=== PATIENT | male | born 1990 ===

== ENCOUNTER 2017-02-07 22:19 | Emergency (ER) | payer MEDICAID ==
[2017-02-07 22:20] VITALS: BMI 13.6
[2017-02-07 22:42] VITALS: TEMP 98.3
[2017-02-07] MEDS ORDERED: Sodium Chloride 0.9% 1,000 ML IV ONE (23:36)
[2017-02-07] MEDS ORDERED: Sodium Chloride 0.9% 1,000 ML ONE (23:41)
[2017-02-07 23:43] LABS: EOS # 0.1 K/uL (0.0-0.7); HEMATOCRIT 42.6 % (35.0-51.0); LYMPH # 1.4 K/uL (1.0-4.3); LYMPH % 30.4 % (20.0-40.0); MEAN CELL VOLUME 87.8 fL (80.0-94.0); MEAN CORPUSCULAR HEMOGLOBIN 28.8 pg (27.0-31.0); MEAN CORPUSCULAR HGB CONC 32.8 g/dL (33.0-37.0); MEAN PLATELET VOLUME 9.7 fL (7.2-11.7); MONO # 0.6 K/uL (0.0-0.8); MONO % 12.2 % (0.0-10.0); NRBC % 0.1 % (0.0-2.0); RED CELL DISTRIBUTION WIDTH 13.3 % (11.5-14.5); WHITE BLOOD COUNT 4.7 K/uL (4.8-10.8)
[2017-02-07 23:53] LABS: CHLORIDE 106 mmol/L (98-107); POTASSIUM 3.1 mmol/L (3.6-5.2); SODIUM 143 mmol/L (132-148)
[2017-02-07 23:56] LABS: BLOOD UREA NITROGEN 9 mg/dL (9-20); CALCIUM 9.4 mg/dl (8.6-10.4); CARBON DIOXIDE 22 mmol/L (22-30); GFR AFRICAN-AMERICAN > 60; GLUCOSE,RANDOM 229 mg/dL (75-110)
[2017-02-07] MEDS ORDERED: Amoxicillin-Clav 875-125 mg Tab PO STA (23:58)
[2017-02-07] MEDS ORDERED: Potassium Chloride 20 mEq ER Tab PO STA (23:58)
--- NOTE | 2017-02-08 00:11 | C.PDOC ---
Time Seen by Provider: 02/07/17 23:27 Chief Complaint (Nursing): Dental Pain History Per: Patient Onset/Duration Of Symptoms: Hrs Current Symptoms Are (Timing): Still Present Severity: Moderate Head: 1 - pain Dental/Oral: 1 - pain Quality: Positive for: "Pain" Additional History Per: Prior Records Past Medical History Reviewed: Historical Data, Nursing Documentation, Vital Signs Vital Signs: Last Vital Signs Temp 98.3 F 02/07/17 22:37 Pulse 93 H 02/07/17 22:37 Resp 20 02/07/17 22:37 BP 127/89 02/07/17 22:37 Pulse Ox 98 02/08/17 00:11 - Medical History PMH: Bipolar Disorder, Crohn's Disease, Depression, Diabetes (Type 1), Schizophrenia Family History: States: Unknown Family Hx - Social History Hx Tobacco Use: No Hx Alcohol Use: Yes Hx Substance Use: Yes - Immunization History Hx Tetanus Toxoid Vaccination: Yes Hx Influenza Vaccination: Yes Hx Pneumococcal Vaccination: Yes Review Of Systems Except As Marked, All Systems Reviewed And Found Negative. Constitutional: Negative for: Fever ENT: Positive for: Ear Pain (right), Mouth Pain. Negative for: Throat Pain Cardiovascular: Negative for: Chest Pain Respiratory: Negative for: Shortness of Breath Gastrointestinal: Negative for: Vomiting, Abdominal Pain Musculoskeletal: Negative for: Neck Pain Skin: Negative for: Rash Neurological: Negative for: Weakness, Numbness, Seizures, Altered Mental Status Physical Exam - Physical Exam Appears: Non-toxic, No Acute Distress Skin: Normal Color, Warm, Dry, No Rash Head: Atraumatic, Normacephalic Eye(s): bilateral: Normal Inspection, PERRL, EOMI Ear(s): Bilateral: Normal Oral Mucosa: Moist, No Drooling, No Trismus Tongue: Normal Appearing Teeth: Caries, Tender To Palpation (right lower molars) Gingiva: No Abscess Throat: Normal Neck: Normal ROM, Supple Cardiovascular: Rhythm Regular Respiratory: Normal Breath Sounds, No Accessory Muscle Use Gastrointestinal/Abdominal: Soft, No Tenderness Extremity: Normal ROM, No Deformity Neurological/Psych: Oriented x3, Normal Speech, Normal Cognition, Normal Cranial Nerves, Normal Motor, Normal Sensation ED Course And Treatment - Laboratory Results Result Diagrams: 02/07/17 23:40 02/07/17 23:40 O2 Sat by Pulse Oximetry: 98 Pulse Ox Interpretation: Normal Reassessment Condition: Improved Progress - Interventions Interventions:: Observation, Intravenous fluid - Medications Administered Intravenous: NSAID - Data Reviewed Data Reviewed: Lab, Old records - Patient Status Patient status: Mostly improved - Continuity of Care Discussed patient case with:: Patient, ED Nurse - Patient Plan Patient Plan: Discharge, F/U with PCP, Continue present meds Disposition Counseled Patient/Family Regarding: Studies Performed, Diagnosis, Need For Followup, Rx Given - Disposition Disposition: HOME/ ROUTINE Disposition Time: 00:59 Condition: IMPROVED Additional Instructions: Follow up with your doctor. Follow up with a Dentist within 1 week for further evaluation and treatment. Return to the ER if you develop fever, redness, swelling, pus drainage, worsening of symptoms or if you have any other concerns. Prescriptions: Amoxicillin/Clavulanate [Augmentin 875 MG-125 MG] 1 tab PO BID #14 tab Ibuprofen [Motrin Tab] 400 mg PO TID PRN #15 tab PRN Reason: Pain, Moderate (4-7) Instructions: Toothache (ED) - Clinical Impression Clinical Impression: Toothache
[2017-02-08] MEDS ORDERED: Amoxicillin-Clav 875-125 mg Tab PO ONE (00:20)
[2017-02-08] MEDS ORDERED: Potassium Chloride 20 mEq ER Tab PO ONE (00:21)
[2017-02-08 01:13] VITALS: BP 111/72; PULSE 86; RESP 18; O2SAT 100
== END 2017-02-08 01:13 | disposition home or self-care (01) ==
LOC: C.ER 22:19
DX: K08.89 Other specified disorders of teeth and supporting structures (principal)
CPT/HCPCS: 80048; 85025; 96361; 96374; 99285; J1885; J7040

== ENCOUNTER 2017-07-11 10:58 | Inpatient (IN) | payer MEDICAID ==
[2017-07-11 10:59] VITALS: BMI 13.6
[2017-07-11] MEDS ORDERED: Sodium Chloride 0.9% 1,000 ML IV ONE ×3 (11:29→14:12)
[2017-07-11] MEDS ORDERED: Sodium Chloride 0.9% 1,000 ML ONE ×3 (11:35→18:36)
[2017-07-11 11:55] LABS: BASO # 0.1 K/uL (0.0-0.2); BASO % 1.1 % (0.0-2.0); EOS # 0.1 K/uL (0.0-0.7); EOS % 1.5 % (0.0-4.0); HEMATOCRIT 46.3 % (35.0-51.0); LYMPH # 1.2 K/uL (1.0-4.3); LYMPH % 24.8 % (20.0-40.0); MEAN CELL VOLUME 89.3 fL (80.0-94.0); MEAN CORPUSCULAR HEMOGLOBIN 29.1 pg (27.0-31.0); MEAN CORPUSCULAR HGB CONC 32.5 g/dL (33.0-37.0); MEAN PLATELET VOLUME 10.4 fL (7.2-11.7); MONO # 0.5 K/uL (0.0-0.8); WHITE BLOOD COUNT 4.7 K/uL (4.8-10.8)
[2017-07-11 12:01] LABS: VENOUS BLOOD GAS BASE EXCESS -6.2 mmol/L (0.0-2.0); VENOUS BLOOD GAS PCO2 45 mmHg (40-60); VENOUS BLOOD PH 7.27 (7.32-7.43)
[2017-07-11] MEDS ORDERED: (Novolin R) Insulin Human Regular 100 units/ml vial IV ONE (12:02)
[2017-07-11] MEDS ORDERED: (Novolin R) Insulin Human Regular 100 units/ml vial ONE (12:19)
[2017-07-11 12:36] LABS: ALB/GLOB RATIO 1.2 (1.0-2.1); ALKALINE PHOSPHATASE 124 U/L (38-126); ALT/SGPT 32 U/L (21-72); AST/SGOT 24 U/L (17-59); BILIRUBIN,TOTAL 0.9 mg/dL (0.2-1.3); BLOOD UREA NITROGEN 10 mg/dL (9-20); CALCIUM 8.3 mg/dl (8.6-10.4); CARBON DIOXIDE 23 mmol/L (22-30); CHLORIDE 89 mmol/L (98-107); GFR AFRICAN-AMERICAN > 60; POTASSIUM 3.9 mmol/L (3.6-5.2); SODIUM 128 mmol/L (132-148); TOTAL PROTEIN 8.1 g/dL (6.3-8.3)
[2017-07-11 13:10] LABS: GLUCOSE,RANDOM 601 mg/dL (75-110)
[2017-07-11 14:38] LABS: URINE BILIRUBIN NEGATIVE (NEGATIVE); URINE BLOOD NEGATIVE (NEGATIVE); URINE COLOR Colorless (YELLOW); URINE GLUCOSE (UA) 3+ mg/dL (Normal); URINE KETONE 2+ mg/dL (NEGATIVE); URINE LEUKOCYTE ESTERASE NEG Leu/uL (Negative); URINE PROTEIN NEGATIVE (NEGATIVE); URINE UROBILINOGEN NORMAL mg/dL (0.2-1.0); WBC URINE < 1 /hpf (0-5)
--- NOTE | 2017-07-11 14:40 | C.PDOC ---
History Of Present Illness 26 y/o male, with PMHx of diabetes, presents to ED c/o nausea, vomiting, and abdominal pain. Notes that he does not have a glucometer at home. Pt states that he is compliant with his diabetes medication- changes dosing based on how he feels. Denies fever, chills, diarrhea, back pain, or any other associated symptoms at this time. Time Seen by Provider: 07/11/17 11:28 Chief Complaint (Nursing): High Blood Sugar History Per: Patient History/Exam Limitations: no limitations Onset/Duration Of Symptoms: Days Current Symptoms Are (Timing): Still Present Associated Infectious Symptoms: Nausea, Vomiting. denies: Dysuria, Urinary Urgency, Urinary Frequency, Diarrhea Recent travel outside of the [place]: No Additional History Per: Patient Past Medical History Reviewed: Historical Data, Nursing Documentation, Vital Signs Vital Signs: Last Vital Signs Temp 98.4 F 07/11/17 13:57 Pulse 84 07/11/17 13:57 Resp 20 07/11/17 13:57 BP 105/68 07/11/17 13:57 Pulse Ox 97 07/11/17 15:31 - Medical History PMH: Bipolar Disorder, Crohn's Disease, Depression, Diabetes (Type 1), Schizophrenia Denies: HIV, Chronic Kidney Disease Family History: States: Unknown Family Hx - Social History Hx Tobacco Use: No Hx Alcohol Use: No Hx Substance Use: Yes - Immunization History Hx Tetanus Toxoid Vaccination: No Hx Influenza Vaccination: No Hx Pneumococcal Vaccination: No Review Of Systems Except As Marked, All Systems Reviewed And Found Negative. Constitutional: Negative for: Fever, Chills Cardiovascular: Negative for: Chest Pain Respiratory: Negative for: Shortness of Breath Gastrointestinal: Positive for: Nausea, Vomiting, Abdominal Pain. Negative for : Diarrhea, Constipation Genitourinary: Negative for: Dysuria, Frequency, Hematuria Musculoskeletal: Negative for: Back Pain Neurological: Negative for: Headache, Dizziness Physical Exam - Physical Exam Appears: Non-toxic, In Acute Distress, Other (actively vomiting) Skin: Normal Color, Warm, Dry Head: Atraumatic, Normacephalic Eye(s): bilateral: Normal Inspection, EOMI Nose: Normal Oral Mucosa: Moist Neck: Normal ROM, Supple Chest: Symmetrical Cardiovascular: Rhythm Regular Respiratory: Normal Breath Sounds, No Rales, No Rhonchi, No Wheezing Gastrointestinal/Abdominal: Soft, Tenderness (diffuse), No Guarding, No Rebound Back: No CVA Tenderness Extremity: Normal ROM Neurological/Psych: Oriented x3, Normal Speech ED Course And Treatment - Laboratory Results Result Diagrams: 07/11/17 11:35 07/11/17 11:35 O2 Sat by Pulse Oximetry: 97 (RA) Pulse Ox Interpretation: Normal Progress Note: Blood work, UA ordered and reviewed. Patient was given Insulin, Reglan, and IV fluids. Spoke to Dr. Gomez (admits for [facility]) who requested to admit to business education instructor medicine. Case discussed with Dr. Carlo Romero who agrees upon admission. Dr Cornejo , ICU, consulted per Dr Jacobo request, who notes pt does not meet ICU criteria. Disposition - Disposition Disposition: HOSPITALIZED Disposition Time: 17:00 Condition: STABLE - Clinical Impression Clinical Impression: DM I (diabetes mellitus, type I), uncontrolled, DKA (diabetic ketoacidoses) - PA / DETONATOR MAKER / Resident Statement MD/DO has reviewed & agrees with the documentation as recorded. - Scribe Statement The provider has reviewed the documentation as recorded by the Scribsonia Romero All medical record entries made by the Otisibsonia were at my direction and personally dictated by me. I have reviewed the chart and agree that the record accurately reflects my personal performance of the history, physical exam, medical decision making, and the department course for this patient. I have also personally directed, reviewed, and agree with the discharge instructions and disposition.
[2017-07-11 16:09] LABS: ABG ALLEN TEST YES; ARTERIAL BLOOD HGB O2 SAT 95.9 % (95.0-98.0); CARBOXYHEMOGLOBIN 1.9 % (0.5-1.5); DRAW SITE LRA; HHB 0.7 % (0.0-5.0); METHEMOGLOBIN 1.5 % (0.0-3.0)
--- NOTE | 2017-07-11 17:57 | CP.PCM.HP ---
History of Present Illness - History of Present Illness History of Present Illness: 26-year-old male with PMHbipolar disorder, Crohn's disease, depression, type 1 diabetes and schizophrenia presents to the ER for evaluation of nausea and vomiting. C/ nausea for a few days. C/Ovomiting for a few days. Nonbilious, nonbloody, containing only food particles, 2-3 episodes per day. C/Oabdominal pain for a few days. Insidious in onset, progressive, weak, diffuse, generalized, all over the abdomen, intensity of 5/10. Patient states that he does not have a glucometer at home and he changes his diabetic medication as per he feels. No C/ bowel bladder disturbances, fever, chills, abdominal distention, cough, shortness of breath. 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) - RENAL Hx Chronic Kidney Disease: No - ENDOCRINE/METABOLIC Hx Endocrine Disorders: Yes Hx Diabetes Mellitus Type 1: Yes (insulin dependent) - HEMATOLOGICAL/ONCOLOGICAL Hx Human Immunodeficiency Virus (HIV): No - INTEGUMENTARY Hx Dermatological Problems: No - MUSCULOSKELETAL/RHEUMATOLOGICAL Hx Falls: No - GASTROINTESTINAL Hx Crohn's Disease: Yes - GENITOURINARY/GYNECOLOGICAL Hx Genitourinary Disorders: No - PSYCHIATRIC Hx Bipolar Disorder: Yes Hx Depression: Yes Hx Schizophrenia: Yes Hx Substance Use: Yes - SURGICAL HISTORY Hx Surgeries: Yes Other/Comment: wired Jaw - ANESTHESIA Hx Anesthesia: Yes Hx Anesthesia Reactions: No Hx Malignant Hyperthermia: No Meds Allergies/Adverse Reactions: Allergies Allergy/AdvReac Type Severity Reaction Status Date / Time No Known Allergies Allergy Verified 02/07/17 22:42 Results - Vital Signs Recent Vital Signs: Last Vital Signs Temp 98.4 F 07/11/17 13:57 Pulse 84 07/11/17 13:57 Resp 20 07/11/17 13:57 BP 105/68 07/11/17 13:57 Pulse Ox 97 11/28/17 15:31 - Labs Result Diagrams: 07/12/17 11:51 07/12/17 11:51 Labs: Laboratory Results - last 24 hr 07/11/17 07/11/17 07/11/17 11:35 11:35 11:56 WBC 4.7 L RBC 5.19 Hgb 15.1 Hct 46.3 MCV 89.3 MCH 29.1 MCHC 32.5 L RDW 14.0 Plt Count 194 MPV 10.4 Neut % (Auto) 62.6 Lymph % (Auto) 24.8 [place] % (Auto) 10.0 Eos % (Auto) 1.5 Baso % (Auto) 1.1 Neut # 2.9 Lymph # 1.2 [place] # 0.5 Eos # 0.1 Baso # 0.1 Puncture Site pCO2 pO2 41 HCO3 ABG pH ABG Total CO2 ABG O2 Saturation ABG Base Excess ABG Hemoglobin ABG Carboxyhemoglobin POC ABG HHb (Measured) ABG Methemoglobin [place] Test VBG pH 7.27 L VBG pCO2 45 VBG HCO3 19.3 VBG Total CO2 22.1 VBG O2 Sat (Calc) 81.7 H VBG Base Excess -6.2 L VBG Potassium 3.2 L A-a O2 Difference Respiratory Index Hgb O2 Saturation Glucose 539 H* D Lactate 1.7 FiO2 Crit Value Called To Dr. stubbs Crit Value Called By Sae reddy Crit Value Read Back Y Blood Gas Notified Time 1201 Sodium 128 L 137.0 Potassium 3.9 Chloride 89 L 100.0 Carbon Dioxide 23 Anion Gap 20 BUN 10 Creatinine 0.6 L Est GFR ( Amer) > 60 Est GFR (Non-Af Amer) > 60 POC Glucose (mg/dL) Random Glucose 601 H* D Calcium 8.3 L Total Bilirubin 0.9 AST 24 ALT 32 Alkaline Phosphatase 124 Total Protein 8.1 Albumin 4.4 Globulin 3.7 Albumin/Globulin Ratio 1.2 Lipase 57 Venous Blood Potassium 3.2 L Urine Color Urine Clarity Urine pH Ur Specific [place] Urine Protein Urine Glucose (UA) Urine Ketones Urine Blood Urine Nitrate Urine Bilirubin Urine Urobilinogen Ur Leukocyte Esterase Urine WBC (Auto) Urine Opiates Screen Urine Methadone Screen Ur Barbiturates Screen Ur Phencyclidine Scrn Ur Amphetamines Screen U Benzodiazepines Scrn U Oth Cocaine Metabols U Cannabinoids Screen Serum Ketones Moderate 07/11/17 07/11/17 07/11/17 13:31 14:27 14:27 WBC RBC Hgb Hct MCV MCH MCHC RDW Plt Count MPV Neut % (Auto) Lymph % (Auto) [place] % (Auto) Eos % (Auto) Baso % (Auto) Neut # Lymph # [place] # Eos # Baso # Puncture Site pCO2 pO2 HCO3 ABG pH ABG Total CO2 ABG O2 Saturation ABG Base Excess ABG Hemoglobin ABG Carboxyhemoglobin POC ABG HHb (Measured) ABG Methemoglobin [place] Test VBG pH VBG pCO2 VBG HCO3 VBG Total CO2 VBG O2 Sat (Calc) VBG Base Excess VBG Potassium A-a O2 Difference Respiratory Index Hgb O2 Saturation Glucose Lactate FiO2 Crit Value Called To Crit Value Called By Crit Value Read Back Blood Gas Notified Time Sodium Potassium Chloride Carbon Dioxide Anion Gap BUN Creatinine Est GFR ( Amer) Est GFR (Non-Af Amer) POC Glucose (mg/dL) 353 H Random Glucose Calcium Total Bilirubin AST ALT Alkaline Phosphatase Total Protein Albumin Globulin Albumin/Globulin Ratio Lipase Venous Blood Potassium Urine Color Colorless Urine Clarity Clear Urine pH 6.0 Ur Specific [place] 1.023 Urine Protein Negative Urine Glucose (UA) 3+ H Urine Ketones 2+ H Urine Blood Negative Urine Nitrate Negative Urine Bilirubin Negative Urine Urobilinogen Normal Ur Leukocyte Esterase Neg Urine WBC (Auto) < 1 Urine Opiates Screen Negative Urine Methadone Screen Negative Ur Barbiturates Screen Negative Ur Phencyclidine Scrn Negative Ur Amphetamines Screen Negative U Benzodiazepines Scrn Negative U Oth Cocaine Metabols Negative U Cannabinoids Screen Positive H Serum Ketones 07/11/17 16:00 WBC RBC Hgb Hct MCV MCH MCHC RDW Plt Count MPV Neut % (Auto) Lymph % (Auto) [place] % (Auto) Eos % (Auto) Baso % (Auto) Neut # Lymph # [place] # Eos # Baso # Puncture Site Lra pCO2 37 pO2 112 H HCO3 18.6 L ABG pH 7.29 L ABG Total CO2 18.9 L ABG O2 Saturation 99.3 H ABG Base Excess -8.1 L ABG Hemoglobin 13.9 ABG Carboxyhemoglobin 1.9 H POC ABG HHb (Measured) 0.7 ABG Methemoglobin 1.5 [place] Test Yes VBG pH VBG pCO2 VBG HCO3 VBG Total CO2 VBG O2 Sat (Calc) VBG Base Excess VBG Potassium A-a O2 Difference -9.0 Respiratory Index -0.1 Hgb O2 Saturation 95.9 Glucose Lactate FiO2 21.0 Crit Value Called To Crit Value Called By Crit Value Read Back Blood Gas Notified Time Sodium Potassium Chloride Carbon Dioxide Anion Gap BUN Creatinine Est GFR ( Amer) Est GFR (Non-Af Amer) POC Glucose (mg/dL) Random Glucose Calcium Total Bilirubin AST ALT Alkaline Phosphatase Total Protein Albumin Globulin Albumin/Globulin Ratio Lipase Venous Blood Potassium Urine Color Urine Clarity Urine pH Ur Specific [place] Urine Protein Urine Glucose (UA) Urine Ketones Urine Blood Urine Nitrate Urine Bilirubin Urine Urobilinogen Ur Leukocyte Esterase Urine WBC (Auto) Urine Opiates Screen Urine Methadone Screen Ur Barbiturates Screen Ur Phencyclidine Scrn Ur Amphetamines Screen U Benzodiazepines Scrn U Oth Cocaine Metabols U Cannabinoids Screen Serum Ketones
[2017-07-11] MEDS ORDERED: Sodium Chloride 0.9% 1,000 ML IV SCH (18:00)
[2017-07-11] MEDS: (Novolog) Insulin Aspart, Recombinant 100 u/ml 10 ml vial SC SCH ×2 (18:29→20:31)
[2017-07-11] MEDS ORDERED: (Novolog) Insulin Aspart, Recombinant 100 u/ml 10 ml vial ONE ×2 (18:34→20:25)
[2017-07-11 19:15] LABS: ALB/GLOB RATIO 1.5 (1.0-2.1); ALKALINE PHOSPHATASE 99 U/L (38-126); ALT/SGPT 30 U/L (21-72); AST/SGOT 18 U/L (17-59); BILIRUBIN,TOTAL 0.9 mg/dL (0.2-1.3); BLOOD UREA NITROGEN 5 mg/dL (9-20); CALCIUM 7.4 mg/dl (8.6-10.4); CARBON DIOXIDE 10 mmol/L (22-30); CHLORIDE 101 mmol/L (98-107); GFR AFRICAN-AMERICAN > 60; GLUCOSE,RANDOM 335 mg/dL (75-110); SODIUM 134 mmol/L (132-148); TOTAL PROTEIN 6.2 g/dL (6.3-8.3)
[2017-07-11] MEDS ORDERED: (Lantus) Insulin Glargine, Recombinant SC SCH (22:00)
[2017-07-12] MEDS: Sodium Chloride 0.9% 1,000 ML IV SCH ×5 (00:31→19:42)
--- NOTE | 2017-07-12 04:56 | CON ---
ENDOCRINOLOGY CONSULTATION LOCATION: In room 663. HISTORY OF PRESENT ILLNESS: This is a 26-year-old male with a known history of type 1 insulin-dependent diabetes, presenting here with diabetic ketoacidosis and dehydration, and is now being referred for diabetic evaluation and management. He is currently on a combination of a basal and bolus insulin regimen with Humalog given as 20 units t.i.d. before meals and Lantus given as 20 units also at bedtime. PAST MEDICAL HISTORY: History of hypertension and dyslipidemia, history of chronic schizoaffective disorder with major depression and underlying schizophrenia as noted thereof. History of generalized anxiety and depression also, currently on psychotropic medication. There is also a history of Crohn's disease and episodic vomiting and diarrhea with vague upper abdominal pain. PHYSICAL EXAMINATION: GENERAL: A male, in no apparent distress. VITAL SIGNS: Blood pressure 140/90, pulse of 100 beats per minute and regular, temperature 99, and respirations 20. Height is 5 feet 9 inches, weight is 100 pounds. HEENT: Head is normocephalic. Eyes anicteric with pink conjunctivae. Funduscopy not possible at this time. Ears, nose, and throat otherwise normal. NECK: Supple. Thyroid gland is normal size. No carotid bruits or cervical adenopathy. CARDIOPULMONARY: Adynamic precordium. S1 and S2 is rapid and regular. LUNGS: Clear to auscultation. ABDOMEN: Flat and soft with positive bowel sounds. EXTREMITIES: No peripheral edema. Pulses are +2 bilaterally. LABORATORY DATA: Chemistries showed a BUN of 10, sodium 128, potassium 3.9, chloride 89, CO2 of 23, glucose 601, and creatinine 0.6. The last CO2 is 10 as noted. ASSESSMENT: This is a 26-year-old male with uncontrolled and decompensated type 1 insulin-dependent diabetes, presenting here with intractable vomiting episodes, some recent drug omission, and supervening diabetic ketoacidosis and dehydration as noted thereof. We will modify the current regimen and switch him over to a more physiologic basal and bolus insulin regimen as ordered. We will increase the Lantus to 34 units subcutaneously at bedtime daily to start tonight. We will also increase the NovoLog to 12 units subcutaneously t.i.d. before meals to start at breakfast time tomorrow morning as ordered. We will modify the covering scale to obviate hypoglycemia and detailed orders have been given. We will obtain serial chemistries and supplement accordingly as needed. We will follow. Kayce Kaplan MD
[2017-07-12] MEDS: (Novolog) Insulin Aspart, Recombinant 100 u/ml 10 ml vial SC SCH ×7 (07:55→21:49)
[2017-07-12 11:54] LABS: HEMATOCRIT 41.5 % (35.0-51.0); MEAN CELL VOLUME 87.4 fL (80.0-94.0); MEAN CORPUSCULAR HEMOGLOBIN 28.9 pg (27.0-31.0); MEAN CORPUSCULAR HGB CONC 33.1 g/dL (33.0-37.0); MEAN PLATELET VOLUME 9.3 fL (7.2-11.7); RED CELL DISTRIBUTION WIDTH 13.9 % (11.5-14.5); WHITE BLOOD COUNT 4.4 K/uL (4.8-10.8)
[2017-07-12 12:09] LABS: ALB/GLOB RATIO 1.4 (1.0-2.1); ALKALINE PHOSPHATASE 66 U/L (38-126); ALT/SGPT 33 U/L (21-72); AST/SGOT 19 U/L (17-59); BILIRUBIN,TOTAL 0.8 mg/dL (0.2-1.3); BLOOD UREA NITROGEN 3 mg/dL (9-20); CALCIUM 7.3 mg/dl (8.6-10.4); CARBON DIOXIDE 23 mmol/L (22-30); CHLORIDE 100 mmol/L (98-107); GFR AFRICAN-AMERICAN > 60; GLUCOSE,RANDOM 138 mg/dL (75-110); SODIUM 133 mmol/L (132-148); TOTAL PROTEIN 5.6 g/dL (6.3-8.3)
--- NOTE | 2017-07-12 14:52 | PN ---
ENDO FOLLOWUP NOTE LOCATION: In the room 663. This is a 26-year-old male with recent uncontrolled type 1 insulin-dependent diabetes with very poor and nil oral intake at this time and continues to have glycemic fluctuations but have improved accordingly overnight as noted. His glucose levels have ranged from 110 to 134 and 166 mg/dL today as noted. His latest chemistry showed a BUN of 5, sodium 134, potassium 4.0, chloride 101, CO2 is still 10 which is indicative of persistent metabolic acidosis and creatinine is 0.5 with a random glucose of 335. However, the patient overnight has refused the IV fluid hydration and had to be restarted this morning upon lengthy bedside discussion regarding the imperative needs for ongoing fluid hydration to minimize and improve the metabolic acidosis thereof. We will obtain serum chemistries and supplement accordingly as needed. We will modify the basal and bolus insulin regimen and lower the Novolog to 6 units subcu t.i.d. before meals and Lantus will be lowered to 24 units subcu at bedtime daily as ordered. We will titrate incrementally as indicated to optimize metabolic control. We will follow. Kayce Kaplan MD
[2017-07-12 16:39] VITALS: RESP 20
--- NOTE | 2017-07-12 19:03 | CP.PCM.PN ---
Subjective - Date & Time of Evaluation Date of Evaluation: 07/12/17 Time of Evaluation: 12:00 - Subjective Subjective: clinically same Objective - Vital Signs/Intake and Output Vital Signs (last 24 hours): Temp Pulse Resp BP Pulse Ox 98.1 F 75 20 120/68 98 07/12/17 16:38 07/12/17 16:38 07/12/17 16:38 07/12/17 16:38 07/12/17 16:38 - Medications Medications: Current Medications Escitalopram Oxalate (Lexapro) 10 mg PO DAILY [facility] Last Admin: 07/12/17 10:44 Dose: Not Given Sodium Chloride (Sodium Chloride 0.9%) 1,000 mls @ 200 mls/hr IV .Q5H [facility] Last Admin: 07/12/17 17:34 Dose: Not Given Ibuprofen (Motrin Tab) 400 mg PO TID PRN PRN Reason: Pain, moderate (4-7) Last Admin: 07/11/17 20:31 Dose: 400 mg Insulin Aspart (Novolog) 0 unit SC ACHS [facility] PRN Reason: Protocol Last Admin: 07/12/17 17:33 Dose: Not Given Insulin Aspart (Novolog) 6 unit SC AC [facility] Last Admin: 07/12/17 17:33 Dose: Not Given Insulin Glargine (Lantus) 24 unit SC HS [facility] Ondansetron HCl (Zofran Inj) 4 mg IVP Q6 PRN PRN Reason: Nausea/Vomiting Last Admin: 07/12/17 17:31 Dose: 4 mg Quetiapine Fumarate (Seroquel) 50 mg PO DAILY [facility] Last Admin: 07/12/17 10:44 Dose: Not Given Quetiapine Fumarate (Seroquel) 100 mg PO HS [facility] Last Admin: 07/11/17 22:08 Dose: 100 mg Trazodone HCl (Desyrel) 50 mg PO HS PRN PRN Reason: Insomnia Last Admin: 07/11/17 22:08 Dose: 50 mg - Labs Labs: 07/12/17 11:51 07/12/17 11:51 - Constitutional Appears: Well - Head Exam Head Exam: ATRAUMATIC, NORMAL INSPECTION, NORMOCEPHALIC - Eye Exam Eye Exam: EOMI, Normal appearance, PERRL Pupil Exam: NORMAL ACCOMODATION, PERRL - ENT Exam ENT Exam: Mucous Membranes Moist, Normal Exam - Neck Exam Neck Exam: Full ROM, Normal Inspection. absent: Lymphadenopathy - Respiratory Exam Respiratory Exam: Clear to Ausculation Bilateral, NORMAL BREATHING PATTERN - Cardiovascular Exam Cardiovascular Exam: REGULAR RHYTHM, +S1, +S2. absent: Murmur - GI/Abdominal Exam GI & Abdominal Exam: Soft, Normal Bowel Sounds. absent: Tenderness - Rectal Exam Rectal Exam: Deferred - Extremities Exam Extremities Exam: Full ROM, Normal Capillary Refill, Normal Inspection. 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 Laboratory investigation shows raised random blood glucose. ABG shows pH of 7.29. Urine cannabinoid screen is positive. Urine ketones are positive. Continue insulin. Continue quetiapine, trazodone and escitalopram. Continue supportive care.
[2017-07-12] MEDS: Potassium Chloride 20 mEq ER Tab PO SCH (21:34)
[2017-07-12] MEDS ORDERED: (Lantus) Insulin Glargine, Recombinant SC SCH ×2 (22:00)
[2017-07-13] MEDS: Sodium Chloride 0.9% 1,000 ML IV SCH ×5 (01:30→22:01)
[2017-07-13] MEDS: Potassium Chloride 20 mEq ER Tab PO SCH (05:52)
[2017-07-13] MEDS: (Novolog) Insulin Aspart, Recombinant 100 u/ml 10 ml vial SC SCH ×7 (07:41→21:31)
[2017-07-13] MEDS ORDERED: Simethicone 80 mg Chewtab PO ONE (10:00)
--- NOTE | 2017-07-13 10:36 | CARD ---
APPROVED REPORT EKG Measurement Heart [id number] <Conclusion> Sinus tachycardia Right atrial enlargement Nonspecific T wave abnormality Abnormal ECG
[2017-07-13] MEDS ORDERED: (Lantus) Insulin Glargine, Recombinant SC SCH (13:00)
[2017-07-13 17:41] LABS: MEAN CELL VOLUME 87.3 fL (80.0-94.0); MEAN CORPUSCULAR HEMOGLOBIN 28.7 pg (27.0-31.0); MEAN CORPUSCULAR HGB CONC 32.9 g/dL (33.0-37.0); MEAN PLATELET VOLUME 9.5 fL (7.2-11.7); RED CELL DISTRIBUTION WIDTH 13.9 % (11.5-14.5); WHITE BLOOD COUNT 4.8 K/uL (4.8-10.8)
[2017-07-13 18:23] LABS: CALCIUM 7.4 mg/dl (8.6-10.4); CARBON DIOXIDE 25 mmol/L (22-30); CHLORIDE 101 mmol/L (98-107); GFR AFRICAN-AMERICAN > 60; GLUCOSE,RANDOM 129 mg/dL (75-110); SODIUM 136 mmol/L (132-148)
--- NOTE | 2017-07-13 18:53 | CP.PCM.PN ---
Subjective - Date & Time of Evaluation Date of Evaluation: 07/13/17 Time of Evaluation: 11:00 - Subjective Subjective: clinically same Objective - Vital Signs/Intake and Output Vital Signs (last 24 hours): Temp Pulse Resp BP Pulse Ox 98.8 F 76 20 117/69 98 07/13/17 15:42 07/13/17 15:42 07/13/17 15:42 07/13/17 15:42 07/13/17 15:42 Intake and Output: 07/13/17 07/13/17 06:59 18:59 Intake Total 1440 1840 Output Total 775 Balance 1440 1065 - Medications Medications: Current Medications Escitalopram Oxalate (Lexapro) 10 mg PO DAILY [facility] Last Admin: 07/13/17 09:37 Dose: 10 mg Sodium Chloride (Sodium Chloride 0.9%) 1,000 mls @ 200 mls/hr IV .Q5H [facility] Last Admin: 07/13/17 16:00 Dose: 200 mls/hr Ibuprofen (Motrin Tab) 400 mg PO TID PRN PRN Reason: Pain, moderate (4-7) Last Admin: 07/11/17 20:31 Dose: 400 mg Insulin Aspart (Novolog) 0 unit SC ACHS [facility] PRN Reason: Protocol Last Admin: 07/13/17 17:54 Dose: Not Given Insulin Aspart (Novolog) 8 unit SC AC [facility] Last Admin: 07/13/17 17:55 Dose: 8 unit Insulin Glargine (Lantus) 30 unit SC HS [facility] Ondansetron HCl (Zofran Inj) 4 mg IVP Q6 PRN PRN Reason: Nausea/Vomiting Last Admin: 07/12/17 17:31 Dose: 4 mg Quetiapine Fumarate (Seroquel) 50 mg PO DAILY [facility] Last Admin: 07/13/17 09:37 Dose: 50 mg Quetiapine Fumarate (Seroquel) 100 mg PO HS [facility] Last Admin: 07/12/17 21:34 Dose: 100 mg Trazodone HCl (Desyrel) 50 mg PO HS PRN PRN Reason: Insomnia Last Admin: 07/12/17 21:34 Dose: 50 mg - Labs Labs: 07/13/17 17:35 07/13/17 17:35 - Constitutional Appears: Well - Head Exam Head Exam: ATRAUMATIC, NORMAL INSPECTION, NORMOCEPHALIC - Eye Exam Eye Exam: EOMI, Normal appearance, PERRL Pupil Exam: NORMAL ACCOMODATION, PERRL - ENT Exam ENT Exam: Mucous Membranes Moist, Normal Exam - Neck Exam Neck Exam: Full ROM, Normal Inspection. absent: Lymphadenopathy - Respiratory Exam Respiratory Exam: Clear to Ausculation Bilateral, NORMAL BREATHING PATTERN - Cardiovascular Exam Cardiovascular Exam: REGULAR RHYTHM, +S1, +S2. absent: Murmur - GI/Abdominal Exam GI & Abdominal Exam: Soft, Normal Bowel Sounds. 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 Patient better. Continue insulin. Continue quetiapine, trazodone. Continue supportive care.
[2017-07-13 19:18] LABS: BLOOD UREA NITROGEN 5 mg/dL (9-20); POTASSIUM 2.6 mmol/L (3.6-5.2)
--- NOTE | 2017-07-13 22:02 | PN ---
DATE: ENDOCRINOLOGY FOLLOWUP NOTE LOCATION: Room 663. SUBJECTIVE: This is a 26-year-old male with recent uncontrolled type 1 insulin-dependent diabetes, presenting here with diabetic ketoacidosis and dehydration and very poor and variable oral intake as noted. His glycemic levels are fluctuating as expected and the latest glucose values have ranged from 206 to 263 and 268 mg/dL. The latest chemistry showed a BUN of 3, sodium 133, potassium 3.0, chloride of 100, CO2 of 23, glucose 138 and creatinine 0.4. So, at this time, we will modify once again his basal and bolus insulin regimen and increase the Lantus to 30 units subcu at bedtime daily to start tonight. We will also increase the NovoLog to 8 units subcu t.i.d. before meals to start at dinnertime today as ordered. We will continue the low-dose corrections daily using NovoLog insulin as given. Titrating incrementally as indicated to optimize metabolic control. We will obtain serial chemistries and supplement accordingly as needed. We will follow up with you. Kayce Kaplan MD
[2017-07-14] MEDS ORDERED: Potassium Chloride 10 mEq ER Tab PO STA (00:09)
[2017-07-14] MEDS ORDERED: Simethicone 80 mg Chewtab PO ONE (05:12)
[2017-07-14] MEDS: (Novolog) Insulin Aspart, Recombinant 100 u/ml 10 ml vial SC SCH ×4 (07:30→11:30)
[2017-07-14] MEDS: Sodium Chloride 0.9% 1,000 ML IV SCH (08:00)
[2017-07-14 08:09] LABS: HEMATOCRIT 42.7 % (35.0-51.0); MEAN CELL VOLUME 87.3 fL (80.0-94.0); MEAN CORPUSCULAR HEMOGLOBIN 29.1 pg (27.0-31.0); MEAN CORPUSCULAR HGB CONC 33.3 g/dL (33.0-37.0); MEAN PLATELET VOLUME 9.7 fL (7.2-11.7); RED CELL DISTRIBUTION WIDTH 13.9 % (11.5-14.5); WHITE BLOOD COUNT 3.8 K/uL (4.8-10.8)
[2017-07-14 08:45] LABS: ALB/GLOB RATIO 1.4 (1.0-2.1); ALKALINE PHOSPHATASE 66 U/L (38-126); ALT/SGPT 33 U/L (21-72); AST/SGOT 21 U/L (17-59); BILIRUBIN,TOTAL 0.9 mg/dL (0.2-1.3); CALCIUM 7.6 mg/dl (8.6-10.4); CARBON DIOXIDE 27 mmol/L (22-30); CHLORIDE 104 mmol/L (98-107); GFR AFRICAN-AMERICAN > 60; GLUCOSE,RANDOM 140 mg/dL (75-110); POTASSIUM 3.4 mmol/L (3.6-5.2); SODIUM 140 mmol/L (132-148); TOTAL PROTEIN 5.8 g/dL (6.3-8.3)
[2017-07-14 09:07] LABS: BLOOD UREA NITROGEN < 2 mg/dL (9-20)
[2017-07-14] MEDS ORDERED: Pneumococcal 23-Valent Vaccine IM ONE (10:00)
[2017-07-14] MEDS ORDERED: Potassium Chloride 20 mEq ER Tab PO ONE (16:00)
--- NOTE | 2017-07-14 16:04 | CP.PCM.PN ---
Subjective - Date & Time of Evaluation Date of Evaluation: 07/14/17 Time of Evaluation: 15:58 - Subjective Subjective: PATIENT WAS ADMITTED FOR DKA ; AAAOX3; NO VOMITING NOTED PATIENT STATES THAT HE DOES HAVE AN APPETITE; DENIES CHEST PAIN OR SOB; NO SIGN OF DISTRESS NOTED Objective - Vital Signs/Intake and Output Vital Signs (last 24 hours): Temp Pulse Resp BP Pulse Ox 98.0 F 69 20 155/66 H 97 07/14/17 08:40 07/14/17 08:40 07/14/17 08:40 07/14/17 08:40 07/14/17 08:40 Intake and Output: 07/14/17 07/14/17 06:59 18:59 Intake Total 1400 Balance 1400 - Medications Medications: Current Medications Escitalopram Oxalate (Lexapro) 10 mg PO DAILY [facility] Last Admin: 07/14/17 09:26 Dose: 10 mg Ibuprofen (Motrin Tab) 400 mg PO TID PRN PRN Reason: Pain, moderate (4-7) Last Admin: 07/11/17 20:31 Dose: 400 mg Insulin Aspart (Novolog) 0 unit SC ACHS [facility] PRN Reason: Protocol Last Admin: 07/14/17 11:30 Dose: Not Given Insulin Aspart (Novolog) 8 unit SC AC [facility] Last Admin: 07/14/17 11:30 Dose: Not Given Insulin Glargine (Lantus) 30 unit SC HS [facility] Last Admin: 07/13/17 22:00 Dose: 30 units Ondansetron HCl (Zofran Inj) 4 mg IVP Q6 PRN PRN Reason: Nausea/Vomiting Last Admin: 07/14/17 05:01 Dose: 4 mg Potassium Chloride (K-Dur 20 Meq Er Tab) 20 meq PO ONCE ONE Stop: 07/14/17 16:01 Quetiapine Fumarate (Seroquel) 50 mg PO DAILY [facility] Last Admin: 07/14/17 09:25 Dose: 50 mg Quetiapine Fumarate (Seroquel) 100 mg PO HS [facility] Last Admin: 07/13/17 21:17 Dose: 100 mg Trazodone HCl (Desyrel) 50 mg PO HS PRN PRN Reason: Insomnia Last Admin: 07/13/17 21:17 Dose: 50 mg - Labs Labs: 07/14/17 07:42 07/14/17 07:42 - Head Exam Head Exam: NORMOCEPHALIC - Eye Exam Pupil Exam: PERRL - Neck Exam Neck Exam: Full ROM - Respiratory Exam Respiratory Exam: Clear to Ausculation Bilateral - Cardiovascular Exam Cardiovascular Exam: REGULAR RHYTHM - GI/Abdominal Exam GI & Abdominal Exam: Normal Bowel Sounds Assessment and Plan - Assessment and Plan (Free Text) Assessment: A/P PATIENT WAS SEEN AND EXAMINED; LUNG SOUND WAS CLEAR ; BLOOD SUGAR IS WNL; POTASSIUM WAS 3.4 REPLACE BY 20 MEQ PO; GLUCOMETER INSTRUCTION WAS GIVEN HOW TOO USE THE MACHINE PATIENT IS NOT COMPLIANT WITH HIS MEDICATION DISCUSS WITH DR Carlo DAVILA WHO AGREE WITH D/C FOLLOW UP WITH DR Carlo DAVILA IN HIS OFFICE IN A WEEK -----CALL HIS OFFICE FOR APPOINTMENT CONTINUE ALL YOUR HOME MEDICATION PER MED RECS NEW RX GIVEN: PERIACTIN 4 MG PO DAILY FOR 7 DAYS FOR APPETITE GLUCOMETER WAS PROVIDED AND INSTRUCTION ALSO GIVEN CALL DR Carlo DAVILA OR GO TO THE ER IF SYMPTOMS RETURN OR WORSENING
[2017-07-14 16:43] VITALS: BP 126/84; PULSE 64; TEMP 98.2; O2SAT 98
--- NOTE | 2017-07-14 23:43 | PN ---
DATE: ENDO FOLLOWUP NOTE: LOCATION: In the room 663. SUBJECTIVE: This is a 26-year-old male with recent uncontrolled type 1 insulin-dependent diabetes presenting here with marked hyperglycemic accelerations and diabetic ketoacidosis and since then improved clinically and metabolically as noted thereof. His oral intake continues to be variable as per the nursing staff as noted. He also has underlying chronic schizoaffective disorder and schizophrenia with major depression. His glucose values are fluctuating but improved and the latest glucose levels have ranged from 149 to 269 mg/dL. The latest chemistries showed the BUN of 2, sodium 140, potassium 3.4, chloride 104, C02 27, glucose 140 and creatinine 0.4. So at this time, we have actually discontinue now the normal sodium infusion. We have initially started vigorous IV hydration to withstand the volume depletion and electrolytes . We will also continue the same basal and bolus insulin regimen for allow control the equilibration especially since his oral intake is quite variable and keep him on the Lantus, given at 30 units subcu at bedtime daily as given. We will continue the Novolog at 8 units subcu b.i.d. before meals; therefore we will titrate incrementally as indicated to optimize metabolic control. We will follow with you. Kayce Kaplan MD
== END 2017-07-14 17:17 | disposition home or self-care (01) | DRG 295 ==
LOC: C.ER 10:58 → C.9E 16:39 → C.6T 20:50
PROVIDERS: ADMIT Internal Medicine Nephrology; ATTEND Internal Medicine Nephrology
DX: E10.10 Type 1 diabetes mellitus with ketoacidosis without coma (principal); E10.40 Type 1 diabetes mellitus with diabetic neuropathy, unspecified; E87.5 Hyperkalemia; E86.0 Dehydration; E87.1 Hypo-osmolality and hyponatremia; F25.9 Schizoaffective disorder, unspecified; I10 Essential (primary) hypertension; E78.5 Hyperlipidemia, unspecified; F31.9 Bipolar disorder, unspecified; F41.1 Generalized anxiety disorder; K50.90 Crohn's disease, unspecified, without complications; H54.8 Legal blindness, as defined in USA; H91.90 Unspecified hearing loss, unspecified ear; K08.89 Other specified disorders of teeth and supporting structures; Z79.4 Long term (current) use of insulin

== ENCOUNTER 2017-07-16 00:45 | Inpatient (IN) | payer MEDICAID ==
[2017-07-16 00:45] VITALS: BMI 13.6
--- NOTE | 2017-07-16 01:17 | C.PDOC ---
History Of Present Illness 26 year old male with a Hx of diabetes and crohn's disease presents to the ER with a complaint epigastric pain. Patient states he did not take his insulin today because he had not eaten today. Denies nausea, vomiting, or ETOH use. Chief Complaint (Nursing): Chest Pain History Per: Patient History/Exam Limitations: no limitations Onset/Duration Of Symptoms: Hrs Current Symptoms Are (Timing): Still Present Associated Symptoms: denies: Nausea, Dyspnea, Diaphoresis, Syncope Modifying Factors: None Exacerbating Factors: None Alleviating Factors: None Recent travel outside of the [place]: No Past Medical History Reviewed: Historical Data, Nursing Documentation, Vital Signs Vital Signs: Last Vital Signs Temp 98.4 F 07/16/17 00:46 Pulse 85 07/16/17 05:00 Resp 18 07/16/17 05:00 BP 98/50 L 07/16/17 05:00 Pulse Ox 99 07/16/17 05:00 - Medical History PMH: Bipolar Disorder, Crohn's Disease, Depression, Diabetes (Type 1), Schizophrenia Surgical History: No Surg Hx Family History: States: Unknown Family Hx - Social History Hx Tobacco Use: No Hx Alcohol Use: No Hx Substance Use: Yes - Immunization History Hx Tetanus Toxoid Vaccination: No Hx Influenza Vaccination: No Hx Pneumococcal Vaccination: No Review Of Systems Constitutional: Negative for: Fever, Chills Gastrointestinal: Positive for: Abdominal Pain. Negative for: Nausea, Vomiting Physical Exam - Physical Exam Appears: Non-toxic, In Acute Distress, Other (Cachetic, Moderate distress) Skin: Normal Color, Warm, Dry Head: Atraumatic, Normacephalic Eye(s): bilateral: Normal Inspection Oral Mucosa: Dry Gingiva: Swelling Neck: Normal, Supple Chest: Symmetrical, No Tenderness Cardiovascular: Rhythm Regular Respiratory: Normal Breath Sounds, No Rales, No Rhonchi, No Wheezing Gastrointestinal/Abdominal: Soft, Tenderness (Epigastric), No Guarding, No Rebound Neurological/Psych: Oriented x3, Normal Speech ED Course And Treatment - Laboratory Results Result Diagrams: 07/16/17 01:39 07/16/17 05:09 ECG: Interpreted By Me, Viewed By Me ECG Rhythm: Sinus Rhythm ECG Interpretation: Normal Interpretation Of ECG: No acute ST/T wave changes, no ectope, no changes in the inferior leads. Rate From EC O2 Sat by Pulse Oximetry: 100 (Room air) Pulse Ox Interpretation: Normal Medical Decision Making Medical Decision Making: Blood work and urinalysis ordered. Zofran, pepcid, morphine, and IV fluids administered. Will rule out DKA vs gastritis. Patient found to be in DKA, discussed case with Dr. Kulkarni who will accept patient for admission to ICU, geographic information systems director aware of patient. Disposition Discussed With Dr.: Jp Randolph Doctor Will See Patient In The: Hospital - Disposition Disposition: HOSPITALIZED Disposition Time: 03:57 Condition: SERIOUS - Clinical Impression Clinical Impression: DKA (diabetic ketoacidoses) - Scribe Statement The provider has reviewed the documentation as recorded by the Scribe Jamil Nova All medical record entries made by the Scribe were at my direction and personally dictated by me. I have reviewed the chart and agree that the record accurately reflects my personal performance of the history, physical exam, medical decision making, and the department course for this patient. I have also personally directed, reviewed, and agree with the discharge instructions and disposition. Decision To Admit - Pt Status Changed To: Hospital Disposition Of: Inpatient - Admit Certification Admit to Inpatient:: After my assessment, the patient will require hospitalization for at least two midnights. This is because of the severity of symptoms shown, intensity of services needed, and/or the medical risk in this patient being treated as an outpatient. - InPatient: Physician Admission Certification: I certify that this patient requires 2 or more midnights of care for the following reason:: DKA - . Bed Request Type: ICU Admitting Physician: Luciana Kulkarni Patient Diagnosis: DKA (diabetic ketoacidoses)
[2017-07-16] MEDS ORDERED: Sodium Chloride 0.9% 1,000 ML ONE (01:24)
[2017-07-16] MEDS ORDERED: Morphine 4 MG/ML VIAL ONE (01:24)
[2017-07-16] MEDS: Sodium Chloride 0.9% 1,000 ML IV ONE ×2 (01:40→03:23)
[2017-07-16 01:45] LABS: BASO # 0.1 K/uL (0.0-0.2); BASO % 1.1 % (0.0-2.0); EOS % 0.1 % (0.0-4.0); HEMATOCRIT 46.8 % (35.0-51.0); LYMPH # 0.9 K/uL (1.0-4.3); LYMPH % 17.2 % (20.0-40.0); MEAN CELL VOLUME 89.7 fL (80.0-94.0); MEAN CORPUSCULAR HEMOGLOBIN 29.4 pg (27.0-31.0); MEAN CORPUSCULAR HGB CONC 32.8 g/dL (33.0-37.0); MEAN PLATELET VOLUME 9.7 fL (7.2-11.7); MONO # 0.3 K/uL (0.0-0.8); MONO % 5.5 % (0.0-10.0); RED CELL DISTRIBUTION WIDTH 14.2 % (11.5-14.5); WHITE BLOOD COUNT 5.1 K/uL (4.8-10.8)
[2017-07-16 02:01] LABS: ALB/GLOB RATIO 1.7 (1.0-2.1); ALKALINE PHOSPHATASE 85 U/L (38-126); ALT/SGPT 35 U/L (21-72); AST/SGOT 18 U/L (17-59); BLOOD UREA NITROGEN 10 mg/dL (9-20); CALCIUM 9.1 mg/dl (8.6-10.4); CARBON DIOXIDE 15 mmol/L (22-30); CHLORIDE 97 mmol/L (98-107); GFR AFRICAN-AMERICAN > 60; GLUCOSE,RANDOM 372 mg/dL (75-110); POTASSIUM 4.8 mmol/L (3.6-5.2); SODIUM 139 mmol/L (132-148); TOTAL PROTEIN 7.4 g/dL (6.3-8.3)
[2017-07-16] MEDS ORDERED: (Novolin R) Insulin Human Regular 100 units/ml vial IV ONE (02:53)
[2017-07-16 03:09] LABS: ABG ALLEN TEST POS; ARTERIAL BLOOD HGB O2 SAT 96.2 % (95.0-98.0); CARBOXYHEMOGLOBIN 2.1 % (0.5-1.5); DRAW SITE RR; HHB 0.6 % (0.0-5.0); METHEMOGLOBIN 1.1 % (0.0-3.0)
[2017-07-16] MEDS ORDERED: (Novolin R) Insulin Human Regular 100 units/ml vial ONE (03:16)
[2017-07-16] MEDS ORDERED: Insulin Human Regular 100 UNIT in Sodium Chloride 0.9% 99 ML IV SCH (03:45)
[2017-07-16] MEDS ORDERED: Sodium Chloride 0.9% 1,000 ML IV ONE (03:57)
--- NOTE | 2017-07-16 04:21 | CP.PCM.CON ---
History of Present Illness - History of Present Illness History of Present Illness: Attending: Cayla Devries MD Reason for Consult: Critical care Management Chief Complaint: Chest Pain/Abdominal pain The Patient was seen and examined in the ED HPI: 26 Years old male with hx of Crohn's Disease, HTN, Bipolar and depression, last admitted to the [facility] on 07/11/17 and Discharged on 07/14/17 with diagnosis of DKA. He comes with two days of Epigastric , periumbilical abdominal pain and retrosternal chest pain which is continuous, preventing him from eating nor drinking and so has not been using Medication. This is associated with SOB and Tachycardia. 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 +ve Use of illegal drugs FH: Unknown Family Hx Allergies: NKDA Medication: Reviewed Review of Systems - Constitutional Constitutional: Anorexia, Malaise. absent: Chills, Fatigue, Fever, Headache, Lethargy, Night Sweats - EENT Eyes: Requires Corrective Lenses. absent: Diplopia, Floaters, Photophobia Ears: absent: Decreased Hearing, Ear Discharge, Ear Pain, Tinnitus Nose/Mouth/Throat: absent: Epistaxis, Nasal Congestion, Nasal Discharge, Sinus Pain, Sinus Pressure Additional comments: legally blind - Cardiovascular Cardiovascular: Chest Pain, Dyspnea, Edema - Respiratory Respiratory: Dyspnea. absent: Cough, Wheezing, Stridor - Gastrointestinal Gastrointestinal: Nausea, Vomiting. absent: Constipation, Cramping, Diarrhea - Genitourinary Genitourinary: absent: Dysuria, Flank Pain, Hematuria, Urinary Frequency - Musculoskeletal Musculoskeletal: Back Pain - Integumentary Integumentary: absent: Pruritus, Rash, Skin Ulcer, Sores, Striae, Swelling Additional comments: Right hand pain - Neurological Neurological: absent: Abnormal Movements, Confusion, Focal Weakness - Psychiatric Psychiatric: Depression, Panic Attacks. absent: Anxiety - Endocrine Endocrine: absent: Palpitations, Polydipsia, Polyphagia, Polyuria - Hematologic/Lymphatic Hematologic: absent: Easy Bleeding, Easy Bruising Past Patient History - Infectious Disease Hx of Infectious Diseases: None - Past Medical History & Family History Past Medical History?: Yes - Past Social History Smoking Status: Never Smoked Chewing Tobacco Use: Yes Cigar Use: Yes Alcohol: None - CARDIAC Hx Cardiac Disorders: No - PULMONARY Hx Respiratory Disorders: No - NEUROLOGICAL Hx Neurological Disorder: Yes Other/Comment: Neuropathy - HEENT 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) - RENAL Hx Chronic Kidney Disease: No - ENDOCRINE/METABOLIC Hx Endocrine Disorders: Yes Hx Diabetes Mellitus Type 1: Yes (insulin dependent) - HEMATOLOGICAL/ONCOLOGICAL Hx Blood Disorders: No Hx Human Immunodeficiency Virus (HIV): No - INTEGUMENTARY Hx Dermatological Problems: No - MUSCULOSKELETAL/RHEUMATOLOGICAL Hx Falls: No - GASTROINTESTINAL Hx Crohn's Disease: Yes - GENITOURINARY/GYNECOLOGICAL Hx Genitourinary Disorders: No - PSYCHIATRIC Hx Bipolar Disorder: Yes Hx Depression: Yes Hx Schizophrenia: Yes Hx Substance Use: Yes - SURGICAL HISTORY Hx Surgeries: Yes Other/Comment: wired Jaw - ANESTHESIA Hx Anesthesia: Yes Hx Anesthesia Reactions: No Hx Malignant Hyperthermia: No Meds Allergies/Adverse Reactions: Allergies Allergy/AdvReac Type Severity Reaction Status Date / Time No Known Allergies Allergy Verified 02/07/17 22:42 - Medications Medications: Current Medications Insulin Human Regular 100 unit (/ Sodium Chloride) 100 mls @ 0.81 mls/hr IV .Q24H [facility]; 0.02 UNIT/KG/HR PRN Reason: Protocol Last Admin: 07/16/17 04:17 Dose: 0.81 mls/hr Sodium Chloride (Sodium Chloride 0.9%) 1,000 mls @ 250 mls/hr IV .Q4H ONE Stop: 07/16/17 07:56 Physical Exam - Constitutional Appears: No Acute Distress - Head Exam Head Exam: ATRAUMATIC, NORMAL INSPECTION, NORMOCEPHALIC - Eye Exam Eye Exam: EOMI, Normal appearance Pupil Exam: NORMAL ACCOMODATION, PERRL - ENT Exam ENT Exam: Mucous Membranes Moist, Normal Exam, Normal External Ear Exam, Normal Oropharynx - Neck Exam Neck exam: Negative for: Full Rom, Meningismus, Tenderness - Respiratory Exam Respiratory Exam: Clear to Auscultation Bilateral. absent: Rales, Rhonchi, Wheezes - Cardiovascular Exam Cardiovascular Exam: REGULAR RHYTHM, RRR, +S1, +S2. absent: Gallop, Rubs - GI/Abdominal Exam Additional comments: Flat, Soft, mild periumbilical and gastric tenderness, no guarding nor rebound tenderness - Rectal Exam Rectal Exam: Deferred Results - Vital Signs Recent Vital Signs: Last Vital Signs Temp 98.4 F 07/16/17 00:46 Pulse 88 07/16/17 03:20 Resp 18 07/16/17 03:20 BP 104/53 L 07/16/17 03:20 Pulse Ox 100 07/16/17 03:57 - Labs Result Diagrams: 07/16/17 01:39 07/16/17 05:09 Labs: Laboratory Results - last 24 hr 07/16/17 07/16/17 07/16/17 01:07 01:39 01:39 WBC 5.1 RBC 5.22 Hgb 15.4 Hct 46.8 MCV 89.7 D MCH 29.4 MCHC 32.8 L RDW 14.2 Plt Count 215 MPV 9.7 Neut % (Auto) 76.1 H Lymph % (Auto) 17.2 L Isabella % (Auto) 5.5 Eos % (Auto) 0.1 Baso % (Auto) 1.1 Neut # 3.9 Lymph # 0.9 L Isabella # 0.3 Eos # 0.0 Baso # 0.1 Puncture Site pCO2 pO2 HCO3 ABG pH ABG Total CO2 ABG O2 Saturation ABG Base Excess ABG Hemoglobin ABG Carboxyhemoglobin POC ABG HHb (Measured) ABG Methemoglobin Gilmar Test A-a O2 Difference Respiratory Index Hgb O2 Saturation FiO2 Sodium 139 Potassium 4.8 Chloride 97 L Carbon Dioxide 15 L Anion Gap 31 H BUN 10 Creatinine 0.7 L Est GFR ( Amer) > 60 Est GFR (Non-Af Amer) > 60 POC Glucose (mg/dL) 335 H Random Glucose 372 H Calcium 9.1 Total Bilirubin 1.0 AST 18 ALT 35 Alkaline Phosphatase 85 Troponin I < 0.0120 Total Protein 7.4 Albumin 4.7 Globulin 2.7 Albumin/Globulin Ratio 1.7 Lipase 31 07/16/17 07/16/17 03:00 03:12 WBC RBC Hgb Hct MCV MCH MCHC RDW Plt Count MPV Neut % (Auto) Lymph % (Auto) Isabella % (Auto) Eos % (Auto) Baso % (Auto) Neut # Lymph # Isabella # Eos # Baso # Puncture Site Rr pCO2 31 L pO2 107 H HCO3 13.8 L ABG pH 7.21 L ABG Total CO2 13.4 L ABG O2 Saturation 99.4 H ABG Base Excess -14.2 L ABG Hemoglobin 14.2 ABG Carboxyhemoglobin 2.1 H POC ABG HHb (Measured) 0.6 ABG Methemoglobin 1.1 Gilmar Test Pos A-a O2 Difference 4.0 Respiratory Index 0 Hgb O2 Saturation 96.2 FiO2 21.0 Sodium Potassium Chloride Carbon Dioxide Anion Gap BUN Creatinine Est GFR ( Amer) Est GFR (Non-Af Amer) POC Glucose (mg/dL) 348 H Random Glucose Calcium Total Bilirubin AST ALT Alkaline Phosphatase Troponin I Total Protein Albumin Globulin Albumin/Globulin Ratio Lipase Assessment & Plan - Assessment and Plan (Free Text) Assessment: #. DKA #. Abdominal and chest pain #. Diabetic Neuropathy #. Depression/ Bipolar/ Schizophrenia #. Hx of Chron's Disease Plan: 26 Years old male with hx of Crohn's Disease, HTN, Bipolar and depression, last admitted to the [facility] on 07/11/17 and Discharged on 07/14/17 with diagnosis of DKA. He comes with two days of Epigastric , periumbilical abdominal pain and retrosternal chest pain which is continuous, preventing him from eating nor drinking and so has not been using Medication. #. DKA - IV Fluids Normal Saline 200mls/hr. Change to D5/NS when Blood Glucose is less than 250mg/dl - Insulin Drip until Anion Gap is normalized - Follow Electrolyes and Blood Glucose #. Abdominal and chest pain - Morphine for pain #. Diabetic Neuropathy - Neurontin #. Depression/ Bipolar/ Schizophrenia - Continue Psych medication #. Hx of Chron's Disease #. Stress Ulcer Prophylaxis with Pepcid - Stable #. DVT Prophylaxis with Lovenox #. Code Status: Full - Date & Time Date: 07/16/17 Time: 04:20
[2017-07-16 05:35] LABS: BLOOD UREA NITROGEN 10 mg/dL (9-20); CARBON DIOXIDE 20 mmol/L (22-30); CHLORIDE 105 mmol/L (98-107); GFR AFRICAN-AMERICAN > 60; GLUCOSE,RANDOM 202 mg/dL (75-110); MAGNESIUM 1.6 mg/dL (1.6-2.3); PHOSPHOROUS 3.4 mg/dL (2.5-4.5); POTASSIUM 4.2 mmol/L (3.6-5.2); SODIUM 137 mmol/L (132-148)
[2017-07-16] MEDS ORDERED: Dextrose 5%/0.9% NS 1,000 ML IV ONE (06:51)
[2017-07-16] MEDS ORDERED: Insulin Detemir 100 units/ml Vial (Levemir) SC STA (08:43)
[2017-07-16] MEDS: (Novolog) Insulin Aspart, Recombinant 100 u/ml 10 ml vial SC SCH ×6 (09:13→21:32)
[2017-07-16] MEDS: Enoxaparin 40 mg Syringe SC SCH (09:13)
--- NOTE | 2017-07-16 13:08 | CP.PCM.PN ---
Subjective - Date & Time of Evaluation Date of Evaluation: 07/16/17 Time of Evaluation: 13:15 - Subjective Subjective: H&P dictated #[id number] Objective - Vital Signs/Intake and Output Vital Signs (last 24 hours): Temp Pulse Resp BP Pulse Ox 97.4 F L 71 19 92/41 L 98 07/16/17 12:00 07/16/17 12:00 07/16/17 12:00 07/16/17 12:00 07/16/17 12:00 Intake and Output: 07/16/17 07/16/17 06:59 18:59 Intake Total 257 973 Output Total 300 Balance -43 973 - Medications Medications: Current Medications Cyproheptadine HCl (Periactin) 4 mg PO DAILY [facility] Last Admin: 07/16/17 09:14 Dose: 4 mg Enoxaparin Sodium (Lovenox) 40 mg SC DAILY [facility] Last Admin: 07/16/17 09:13 Dose: 40 mg Escitalopram Oxalate (Lexapro) 10 mg PO DAILY [facility] Last Admin: 07/16/17 09:14 Dose: 10 mg Famotidine (Pepcid) 20 mg IVP BID [facility] Last Admin: 07/16/17 09:13 Dose: 20 mg Insulin Human Regular 100 unit (/ Sodium Chloride) 100 mls @ 0.81 mls/hr IV .Q24H [facility]; 0.02 UNIT/KG/HR PRN Reason: Protocol Last Titration: 07/16/17 06:41 Dose: 0 unit/kg/hr, 0 mls/hr Insulin Aspart (Novolog) 0 unit SC Q4H [facility] PRN Reason: Protocol Last Admin: 07/16/17 09:13 Dose: Not Given Insulin Aspart (Novolog) 20 unit SC ACHS [facility] Insulin Glargine (Lantus) 30 unit SC HS [facility] Morphine Sulfate (Morphine) 2 mg IVP Q4 PRN PRN Reason: Pain, moderate (4-7) Morphine Sulfate (Morphine) 4 mg IVP Q4 PRN PRN Reason: Pain, severe (8-10) Last Admin: 07/16/17 11:54 Dose: 4 mg Quetiapine Fumarate (Seroquel) 100 mg PO HS [facility] Quetiapine Fumarate (Seroquel) 50 mg PO DAILY [facility] Last Admin: 07/16/17 09:14 Dose: 50 mg Trazodone HCl (Desyrel) 50 mg PO HS PRN PRN Reason: Insomnia - Labs Labs: 07/16/17 01:39 07/16/17 05:09
--- NOTE | 2017-07-16 15:25 | HP ---
CHIEF COMPLAINT: Progressive worsening of epigastric burning pain since yesterday. HISTORY OF PRESENT ILLNESS: Mr. Gonzalez is a 26-year-old male with past medical history of hypertension, diabetes mellitus, anxiety disorder, diabetic neuropathy, has been on insulin for the past 6 years for IDDM, has been following up with Dr. Cristiano Barnett as primary care physician. Came in to the ED for the symptoms of epigastric burning pain and not able to tolerate associated with shortness of breath. In the ED, the patient was found to be in DKA and the patient is being admitted for further management. When I examined, he is feeling much better. Denies any headache, dizziness. Denies any chest pain, shortness of breath or wheezing. Epigastric pain is better. Denies any nausea, vomiting, abdominal pain, diarrhea or constipation. Denies any other urinary complaints. Denies any leg pains or leg cramps. PAST MEDICAL HISTORY: As described, diabetes mellitus, hypertension, diabetic neuropathy, anxiety. PAST SURGICAL HISTORY: Denies any past surgical history. FAMILY HISTORY: Diabetes mellitus in his father's side. ALLERGIES: No known drug allergies. HOME MEDICATIONS: Include insulin 20 units 3 times a day with meals and Lantus 20 units at bedtime, trazodone 50 mg p.o. at bedtime, Seroquel 100 mg p.o. at bedtime, Lexapro 10 mg daily, Periactin 4 mg p.o. daily. PERSONAL HISTORY: He is single. Lives alone and unemployed. SOCIAL HISTORY: Denies any smoking, alcohol or drug abuse. REVIEW OF SYSTEMS: As described in history of present illness. PHYSICAL EXAMINATION: GENERAL: Young, thin-built male, lying in bed, in no acute distress. VITAL SIGNS: Blood pressure 93/47, pulse 68, respirations 20, temperature 97.4 degrees Fahrenheit, O2 saturation 98% on room air. HEENT: Pupils equal, round, reacting to light and accommodation. Extraocular muscles intact. No icterus. No pallor. No oral thrush. No pharyngeal congestion. NECK: Supple. No JVD. LUNGS: Bilateral vesicular breath sounds. No wheezing. No rhonchi. CARDIOVASCULAR SYSTEM: S1 and S2 present, regular. ABDOMEN: Soft, nontender. Bowel sounds present. No guarding. No rigidity. No rebound tenderness noted. CENTRAL NERVOUS SYSTEM: Alert, awake, oriented x3. No focal deficits noted. EXTREMITIES: No edema. LABORATORY DATA: Labs done from ED, WBC 5.1, hemoglobin 15.4, hematocrit 46.8, platelets 215. ABG on room air with pH 7.21, pCO2 of 31, pO2 of 107. Sodium 139, potassium 4.8, chloride 97, bicarb 15, BUN 10, creatinine 0.7, glucose 348 with anion gap of 31, glucose 372, calcium 9.1. Other LFTs within normal limits. Serum ketone small. Repeat Chem-7 from this morning, sodium 137, potassium 4.2, chloride 105, bicarb 20, BUN 10, creatinine 0.5, glucose 106. ASSESSMENT AND PLAN: Young thin-built male with history of hypertension, insulin-dependent diabetes mellitus, anxiety disorder, diabetic neuropathy, admitted for epigastric pain and found to be in diabetic ketoacidosis and the patient is being admitted for further management. 1. Diabetic ketoacidosis. 2. Epigastric pain. 3. Insulin-dependent diabetes mellitus. 4. History of diabetic neuropathy. 5. Anxiety disorder. 6. History of hypertension. PLAN: The patient is being admitted to ICU. The patient received insulin drip overnight and discontinued this morning. We will continue with Accu-Chek monitoring, restart his home insulin regimen. We will obtain Endocrinology consult with Dr. Mitchell. Check hemoglobin A1c levels. Repeat labs in the morning. I will give Protonix for GI prophylaxis. Lovenox for DVT prophylaxis. Continue with other home medications. We will add further recommendation as his clinical course progresses. Luciana Kulkarni MD
[2017-07-16] MEDS ORDERED: (Lantus) Insulin Glargine, Recombinant SC SCH ×2 (22:00)
[2017-07-17 01:50] LABS: URINE BILIRUBIN NEGATIVE (NEGATIVE); URINE BLOOD NEGATIVE (NEGATIVE); URINE COLOR Straw (YELLOW); URINE GLUCOSE (UA) 2+ mg/dL (Normal); URINE KETONE 1+ mg/dL (NEGATIVE); URINE LEUKOCYTE ESTERASE NEG Leu/uL (Negative); URINE PROTEIN NEGATIVE (NEGATIVE); URINE UROBILINOGEN NORMAL mg/dL (0.2-1.0); WBC URINE < 1 /hpf (0-5)
--- NOTE | 2017-07-17 06:27 | CON ---
ENDOCRINOLOGY CONSULT DATE: LOCATION: ICU room 7. HISTORY OF PRESENT ILLNESS: This is a 26-year-old male with known history of type 1 insulin-dependent diabetes and actually just discharged a day ago and presents here with epigastric and periumbilical pain with supervening precordial chest pain and is now being admitted for management of acute coronary syndrome and also GI evaluation and management. PAST MEDICAL HISTORY: As mentioned above. History of type 1 insulin-dependent diabetes, on the basal and bolus insulin regimen, which he poorly complies and adheres to because of the variability of his oral intake; history of diabetic retinopathy and polyneuropathy as noted; history of hypertension and dyslipidemia; history of schizophrenia with underlying chronic schizoaffective disorder; history of recent major depression and generalized anxiety state as noted. The patient is actually legally blind as noted. FAMILY HISTORY: Positive for diabetes and hypertension. SOCIAL HISTORY: The patient has a supportive family. No known alcohol or smoking history, but has used narcotic analgesics many times as noted. REVIEW OF SYSTEMS: Admits to generalized body weakness with progressive bouts of dizziness and lightheadedness, worse on the day of admission. Also, admits to easy fatigability and tiredness with bifrontal headaches and visual blurring. Admits to sudden onset of precordial and substernal chest pain with progressive shortness of breath especially on exertion. His oral intake is variable with nausea, dyspepsia, and vague upper abdominal pains. Also, admits to marked polyuria, nocturia, and polydipsia. PHYSICAL EXAMINATION: GENERAL: This is an asthenic male in no apparent distress. VITAL SIGNS: Blood pressure 140/80, pulse of 70 beats per minute and regular, temperature 98, respirations 20, height is 5 feet 4 inches, and weight is 98 pounds. HEENT: Head normocephalic. Eyes anicteric with pink conjunctivae. Funduscopy not possible at this time. Ears, nose, and throat are otherwise normal. NECK: Supple. Thyroid gland is normal size. No carotid bruits or cervical adenopathy. CARDIOPULMONARY: Adynamic precordium. S1 and S2 is rapid and regular. LUNGS: Clear to auscultation. ABDOMEN: Flat and soft with positive bowel sounds. EXTREMITIES: No peripheral edema. Pulses are +2 bilaterally. LABORATORY DATA: Initial chemistry showed BUN of 10, sodium 139, potassium 4.8, chloride 97, CO2 of 15, glucose 372, and creatinine 0.7. The latest CO2 is now 20 with hypoglycemic episodes at dinnertime today as noted and glucose levels from 33 to 78 mg/dL. ASSESSMENT: This is a 26-year-old male with uncontrolled and decompensated type 1 insulin-dependent diabetes, presenting here with diabetic ketoacidosis and supervening symptomatic hypoglycemia related to the variable and suboptimal meal portions as noted. He also has diabetic microvascular complications of retinopathy and polyneuropathy as noted. He has significant history of major depression and underlying chronic schizoaffective disorder. Thus, presented here with precordial and substernal chest pain and abdominal pain and currently undergoing cardiac and gastrointestinal workup as noted. PLAN OF MANAGEMENT: We will modify his current basal and bolus insulin regimen to obviate hypoglycemia and detailed orders have been given. We will lower the Humalog to 8 units subcutaneous t.i.d. before meals as ordered to start tomorrow morning as given. We will also lower the basal insulin with Lantus to be given as 14 units subcutaneous at bedtime daily to start tonight. We will titrate incrementally as his oral intake improves accordingly. We will also obtain consult with our diabetic nurse educator for re-enforcement of the imperative need for consistent meal portions and his insulin regimen accordingly, to obviate hypoglycemia. We will also allow the family to bring foods from home as this is his pattern for home meals food as noted. We will consult a dietitian for healthiest food choices accordingly. We will follow. We will obtain a hemoglobin A1c to confirm his prior glycemic control, and baseline thyroid function studies will be ordered. We will follow and advise accordingly. Kayce Kaplan MD
[2017-07-17] MEDS: (Novolog) Insulin Aspart, Recombinant 100 u/ml 10 ml vial SC SCH ×4 (08:00→11:34)
[2017-07-17 08:47] VITALS: RESP 18; TEMP 98
[2017-07-17] MEDS: Enoxaparin 40 mg Syringe SC SCH (11:00)
--- NOTE | 2017-07-17 12:01 | CP.PCM.PN ---
Subjective - Date & Time of Evaluation Date of Evaluation: 07/17/17 Time of Evaluation: 11:50 - Subjective Subjective: Progress note dictated #[id number] Objective - Vital Signs/Intake and Output Vital Signs (last 24 hours): Temp Pulse Resp BP Pulse Ox 98 F 72 18 102/76 95 07/17/17 08:00 07/17/17 08:00 07/17/17 08:00 07/17/17 08:00 07/17/17 08:00 Intake and Output: 07/17/17 07/17/17 06:59 18:59 Intake Total 340 200 Output Total 1000 Balance -660 200 - Medications Medications: Current Medications Cyproheptadine HCl (Periactin) 4 mg PO DAILY [facility] [place] Last Admin: 07/17/17 10:34 Dose: 4 mg Enoxaparin Sodium (Lovenox) 40 mg SC DAILY [facility] [place] Last Admin: 07/16/17 09:13 Dose: 40 mg Escitalopram Oxalate (Lexapro) 10 mg PO DAILY [facility] [place] Last Admin: 07/17/17 10:34 Dose: 10 mg Famotidine (Pepcid) 20 mg IVP BID [facility] [place] Last Admin: 07/17/17 10:33 Dose: 20 mg Insulin Aspart (Novolog) 8 unit SC AC [facility] [place] Last Admin: 07/17/17 11:34 Dose: Not Given Insulin Aspart (Novolog) 0 unit SC ACHS [facility] [place] PRN Reason: Protocol Last Admin: 07/17/17 11:34 Dose: Not Given Insulin Glargine (Lantus) 14 unit SC HS [facility] [place] Last Admin: 07/16/17 21:32 Dose: 10 units Morphine Sulfate (Morphine) 2 mg IVP Q4 PRN PRN Reason: Pain, moderate (4-7) Last Admin: 07/17/17 07:52 Dose: 2 mg Morphine Sulfate (Morphine) 4 mg IVP Q4 PRN PRN Reason: Pain, severe (8-10) Last Admin: 07/16/17 11:54 Dose: 4 mg Quetiapine Fumarate (Seroquel) 100 mg PO HS [facility] [place] Last Admin: 07/16/17 21:32 Dose: 100 mg Quetiapine Fumarate (Seroquel) 50 mg PO DAILY [facility] [place] Last Admin: 07/17/17 10:35 Dose: 50 mg Trazodone HCl (Desyrel) 50 mg PO HS PRN PRN Reason: Insomnia Last Admin: 07/17/17 00:16 Dose: 50 mg - Labs Labs: 07/16/17 01:39 07/16/17 05:09
[2017-07-17 13:02] VITALS: BP 100/56; PULSE 76; O2SAT 96
--- NOTE | 2017-07-17 23:20 | CARD ---
APPROVED REPORT EKG Measurement Heart [id number] IA [id number] <Conclusion> Sinus rhythm with short IA Right atrial enlargement Rightward axis Pulmonary disease pattern T wave abnormality, consider inferior ischemia Abnormal ECG
--- NOTE | 2017-07-18 07:36 | PN ---
ENDO FOLLOWUP NOTE . His glucose levels overnight ranged from 78 to 143 and 160 mg/dL. His latest chemistry showed a BUN of 10, sodium 137, potassium 4.2, chloride 105, CO2 of 20, glucose 204, and creatinine 0.5. He has refused this morning's blood testing as ordered. To allow for dose equilibration, we will continue the same basal and bolus insulin regimen as noted subcu t.i.d. before meals as given. We will continue the Lantus at 14 units subcu at bedtime given his basal insulin. We will continue also the very low dose correction scale using Novolog insulin to allow for dose equilibration and to obviate hypoglycemia. We will obtain serial chemistries and supplement accordingly as needed. We will follow with you. Kayce Kaplan MD
--- NOTE | 2017-07-18 15:23 | DS ---
DISCHARGE DIAGNOSES: Diabetic ketoacidosis, insulin-dependent diabetes mellitus, history of diabetic neuropathy, anxiety disorder, history of hypertension, history of epigastric pain. HISTORY OF PRESENT ILLNESS: Mr. Carlos Chapman is a 26-year-old male with past medical history of hypertension, diabetes mellitus, anxiety disorder, diabetic neuropathy with IDDM, on insulin for the past six years, has been following up with Dr. Cristiano Barnett, admitted for epigastric pain and nausea, found to be in DKA. Patient was admitted to ICU for further evaluation and management. Today, the patient is feeling much better. Denies any headache, dizziness. Denies any chest pain, shortness of breath or wheezing. Denies any nausea, vomiting, abdominal pain, diarrhea, or constipation. Denies any urinary complaints. Denies any leg pain or leg cramp. Denies any other neurological symptoms. All other systems reviewed and were found to be negative. PHYSICAL EXAMINATION: GENERAL: Young, thin-built Cachectic looking male, lying in bed in no acute distress. VITAL SIGNS: Blood pressure 101/58, pulse 72, respirations 20, temperature 98 degrees Fahrenheit, O2 saturation 95 percent on room air. HEENT: Pupils equal, round, reacting to light and accommodation. Extraocular muscles intact. No icterus. No pallor. No oral thrush. No pharyngeal congestion. No nasal congestion. NECK: Supple. No JVD. LUNGS: Bilateral vesicular breath sounds. No wheezing. No rhonchi. CARDIOVASCULAR: S1, S2 present. Regular. ABDOMEN: Soft, nontender. Bowel sounds present. No guarding. No rigidity. No rebound tenderness noted. [employer]: Alert, awake, oriented x3. No focal deficits noted. EXTREMITIES: No edema. Palpable peripheral pulses. LABORATORY DATA: Labs done from admission, WBC 5.1, hemoglobin 15.4, hematocrit 46.8, platelets 215. Sodium 137, potassium 4.2, chloride 105, bicarb 20, BUN 10, creatinine 0.5, glucose 202, hemoglobin A1c 13.5, calcium 8.0, phosphorus 3.4, magnesium 1.6. Urine pH 6.0, specific gravity 1.006, glucose 2+, ketones 1+. Urine drug screen positive for opiates and cannabinoids. Serum ketones small. HOSPITAL COURSE: The patient was admitted to ICU. The patient was started on insulin drip and IV fluids. When patient's anion gap improved, the patient was switched to regular insulin regimen and the patient was discontinued with insulin drip. The patient was evaluated by Endocrinology. Resume his insulin regimen. The patient's sugars are still fluctuating with hypoglycemia, but patient is anxious to be discharged. Advised the patient the risk of going home against medical advice. The patient is alert, awake, oriented x3 and understands the consequences of going home against medical advice. As the patient is not willing to stay, the patient was discharged against medical advice. CONDITION UPON DISCHARGE: The patient was alert, awake, oriented x3 and hemodynamically stable at the time of discharge. DISCHARGE INSTRUCTIONS: Follow up with PMD, follow up with Endocrinology. DISCHARGE MEDICATIONS: Advise patient to continue with his home medication. DIET: Diabetic diet. ACTIVITY: As tolerated. Luciana Kulkarni MD
== END 2017-07-17 15:23 | disposition left against medical advice (07) | DRG 295 ==
LOC: C.ER 00:45 → C.9E 03:53 → C.9I 04:23 → C.3T 07-17 13:08
PROVIDERS: ADMIT Internal Medicine; ATTEND Internal Medicine
DX: E10.10 Type 1 diabetes mellitus with ketoacidosis without coma (principal); E10.649 Type 1 diabetes mellitus with hypoglycemia without coma; E10.40 Type 1 diabetes mellitus with diabetic neuropathy, unspecified; F20.89 Other schizophrenia; K50.90 Crohn's disease, unspecified, without complications; M46.96 Unspecified inflammatory spondylopathy, lumbar region; H54.8 Legal blindness, as defined in USA; I10 Essential (primary) hypertension; F41.9 Anxiety disorder, unspecified; F32.9 Major depressive disorder, single episode, unspecified; G47.00 Insomnia, unspecified

== ENCOUNTER 2017-07-18 19:59 | Inpatient (IN) | payer MEDICAID ==
[2017-07-18 19:59] VITALS: BMI 13.6
[2017-07-18 20:26] LABS: BASO # 0.1 K/uL (0.0-0.2); EOS % 0.3 % (0.0-4.0); HEMATOCRIT 44.8 % (35.0-51.0); LYMPH # 1.3 K/uL (1.0-4.3); LYMPH % 22.9 % (20.0-40.0); MEAN CELL VOLUME 89.1 fL (80.0-94.0); MEAN CORPUSCULAR HGB CONC 32.5 g/dL (33.0-37.0); MONO # 0.5 K/uL (0.0-0.8); MONO % 8.5 % (0.0-10.0); RED CELL DISTRIBUTION WIDTH 13.9 % (11.5-14.5); WHITE BLOOD COUNT 5.5 K/uL (4.8-10.8)
[2017-07-18 20:42] LABS: ALB/GLOB RATIO 1.8 (1.0-2.1); ALKALINE PHOSPHATASE 78 U/L (38-126); ALT/SGPT 30 U/L (21-72); AST/SGOT 17 U/L (17-59); BILIRUBIN,TOTAL 1.2 mg/dL (0.2-1.3); BLOOD UREA NITROGEN 11 mg/dL (9-20); CALCIUM 8.7 mg/dl (8.6-10.4); CARBON DIOXIDE 15 mmol/L (22-30); CHLORIDE 96 mmol/L (98-107); GFR AFRICAN-AMERICAN > 60; GLUCOSE,RANDOM 313 mg/dL (75-110); POTASSIUM 4.3 mmol/L (3.6-5.2); SODIUM 135 mmol/L (132-148); TOTAL PROTEIN 6.8 g/dL (6.3-8.3)
[2017-07-18] MEDS ORDERED: Lactated Ringer's 2,000 ML IV ONE (21:02)
--- NOTE | 2017-07-18 21:02 | C.PDOC ---
History Of Present Illness Patient presents to ED stating "I dont feel well" with complaints of cough and chest pain with deep inspiration. Patient was recently seen at ED for DKA but left AMA. Patient denies fever, chills, vomiting, diarrhea, sob or any other complaints at this time. Time Seen by Provider: 07/18/17 20:57 Chief Complaint (Nursing): Chest Pain History Per: Patient History/Exam Limitations: no limitations Onset/Duration Of Symptoms: Days Current Symptoms Are (Timing): Still Present Severity: Moderate Pain Scale Rating Of: 4 Quality: Pressure Associated Symptoms: denies: Nausea Modifying Factors: None Exacerbating Factors: None Alleviating Factors: None Recent travel outside of the [place]: No Additional History Per: Patient Past Medical History Reviewed: Historical Data, Nursing Documentation, Vital Signs Vital Signs: Last Vital Signs Temp 99.1 F 07/18/17 20:04 Pulse 96 H 07/18/17 22:54 Resp 16 07/18/17 22:54 BP 109/63 07/18/17 22:54 Pulse Ox 96 07/18/17 22:54 - Medical History PMH: Bipolar Disorder, Crohn's Disease, Depression, Diabetes (Type 1), Schizophrenia Surgical History: No Surg Hx Family History: States: No Known Family Hx - Social History Hx Tobacco Use: No Hx Alcohol Use: No Hx Substance Use: Yes - Immunization History Hx Tetanus Toxoid Vaccination: No Hx Influenza Vaccination: No Hx Pneumococcal Vaccination: No Review Of Systems Constitutional: Negative for: Fever, Chills Eyes: Negative for: Vision Change Cardiovascular: Positive for: Chest Pain. Negative for: Palpitations Respiratory: Positive for: Cough Gastrointestinal: Negative for: Nausea, Vomiting Skin: Negative for: Rash Neurological: Negative for: Weakness, Numbness Psych: Positive for: Anxiety Physical Exam - Physical Exam Appears: Non-toxic, No Acute Distress Skin: Warm, Dry, No Rash Head: Normacephalic Eye(s): bilateral: Normal Inspection Oral Mucosa: Dry Throat: No Erythema, No Exudate Neck: Trachea Midline, Supple Chest: Symmetrical Cardiovascular: Rhythm Regular Respiratory: No Accessory Muscle Use, No Rales, No Rhonchi, No Wheezing Gastrointestinal/Abdominal: Soft, Tenderness (Mild epigastric), No Guarding, No Rebound Back: No CVA Tenderness Extremity: Capillary Refill (<2 seconds), No Deformity, No Swelling Extremity: Bilateral: Atraumatic, Normal Color And Temperature, Normal ROM Pulses: Left Dorsalis Pedis: Normal, Right Dorsalis Pedis: Normal Neurological/Psych: Oriented x3, Normal Speech, Normal Cognition Gait: Steady ED Course And Treatment - Laboratory Results Result Diagrams: 07/18/17 20:23 07/18/17 20:23 ECG: Interpreted By Me, Viewed By Me ECG Rhythm: Sinus Rhythm (83), Nonspecific Changes (r atrial enlargement, unchanged from 07/16/17 and07/11/17) O2 Sat by Pulse Oximetry: 97 (RA) Pulse Ox Interpretation: Normal - Radiology CXR: Interpreted by Me, Viewed By Me CXR Interpretation: No: Infiltrates, Fracture, Pnemothorax Disposition Discussed With .: Hillary Keller Comment: accepted the pt on her service and took over the care at 12:15 AM Doctor Will See Patient In The: Hospital Counseled Patient/Family Regarding: Studies Performed, Diagnosis - Disposition Disposition: HOSPITALIZED Disposition Time: 21:02 Condition: FAIR Forms: [employer] ([place]) - POA Present On Arrival: Poor Glycemic Control - Clinical Impression Clinical Impression: Chest pain, Cocaine abuse, Hyperglycemia due to type 1 diabetes mellitus - Scribe Statement The provider has reviewed the documentation as recorded by the Scribe Judy Ruvalcaba All medical record entries made by the Scribe were at my direction and personally dictated by me. I have reviewed the chart and agree that the record accurately reflects my personal performance of the history, physical exam, medical decision making, and the department course for this patient. I have also personally directed, reviewed, and agree with the discharge instructions and disposition. Decision To Admit - Pt Status Changed To: Hospital Disposition Of: Observation - . Bed Request Type: Telemetry Admitting Physician: Hillary Keller Patient Diagnosis: Chest pain, Cocaine abuse, Hyperglycemia due to type 1 diabetes mellitus
[2017-07-18] MEDS ORDERED: Lactated Ringer's 2,000 ML ONE (21:13)
[2017-07-18 21:14] LABS: VENOUS BLOOD GAS BASE EXCESS -8.6 mmol/L (0.0-2.0); VENOUS BLOOD GAS PCO2 33 mmHg (40-60); VENOUS BLOOD PH 7.31 (7.32-7.43)
[2017-07-18 21:53] LABS: URINE BILIRUBIN NEGATIVE (NEGATIVE); URINE BLOOD NEGATIVE (NEGATIVE); URINE COLOR Straw (YELLOW); URINE GLUCOSE (UA) 3+ mg/dL (Normal); URINE KETONE 2+ mg/dL (NEGATIVE); URINE LEUKOCYTE ESTERASE NEG Leu/uL (Negative); URINE PROTEIN NEGATIVE (NEGATIVE); URINE UROBILINOGEN NORMAL mg/dL (0.2-1.0)
--- NOTE | 2017-07-19 08:12 | CP.PCM.CON ---
<Jose F Hickey - Last Filed: 07/20/17 14:52> History of Present Illness - History of Present Illness History of Present Illness: Cardiology Consult note for Dr. Dickerson Patient is a 26 year old male with a past medical history of IDDM, diabetic neuropathy, Chrohn's disease, bipolar disorder, schizophrenia, anxiety disorder and depression who presented to [facility] with complaints of chest pain. Patient states that he can't recall when chest pain began exactly but states that it has been present since his first admission on 07/11/17. States pain lasts all day and characterizes it as a tight squeezing sensation as if " someone is tightly gripping his chest especially when breathing inward." States that chest pain is associated with back pain, nausea, and burping. Admits to pain be exacerbated with speaking, relieved with patient rubbing his back in a circular motion as well as burping and bringing up phlegm. Patient denies recent viral infections, drug abuse, sick contacts, or recent travel. Patient states he does not move around much due to nerve pain. Admits to leaving the house once every other day to go to the corner store and get food, besides this patient does not move around or stay active. PMD: Dr. Barnett Past surgical history: Denies Social History: admits to marijuana abuse Family history: DM on paternal side Home medications: Humalog 20 unit TID, Trazodone 50 mg HS, Seroquel 100 mg HS, Lexapro 10 mg qD, Periactin 4 mg qD. Review of Systems - Review of Systems Systems not reviewed;Unavailable: Acuity of Condition - Constitutional Constitutional: Malaise. absent: Chills, Headache, Increased Appetite - EENT Eyes: absent: Blurred Vision, Change in Vision Nose/Mouth/Throat: absent: Nasal Congestion, Nasal Discharge Additional comments: Poor dentation - Cardiovascular Cardiovascular: Chest Pain. absent: Leg Edema - Gastrointestinal Gastrointestinal: Abdominal Pain, Coffee Ground Emesis, Nausea, Vomiting - Genitourinary Genitourinary: absent: Dysuria, Hematuria, Pyuria - Musculoskeletal Musculoskeletal: Back Pain - Integumentary Integumentary: absent: Acne, Alopecia - Psychiatric Psychiatric: Anxiety, Difficulty Concentrating. 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) - RENAL Hx Chronic Kidney Disease: No - ENDOCRINE/METABOLIC Hx Endocrine Disorders: Yes Hx Diabetes Mellitus Type 1: Yes (insulin dependent) - HEMATOLOGICAL/ONCOLOGICAL Hx Human Immunodeficiency Virus (HIV): No - INTEGUMENTARY Hx Dermatological Problems: No - MUSCULOSKELETAL/RHEUMATOLOGICAL Hx Falls: No - GASTROINTESTINAL Hx Crohn's Disease: Yes - GENITOURINARY/GYNECOLOGICAL Hx Genitourinary Disorders: No - PSYCHIATRIC Hx Substance Use: Yes (MARIJUANA) - SURGICAL HISTORY Hx Surgeries: Yes Other/Comment: wired Jaw - ANESTHESIA Hx Anesthesia: Yes Hx Anesthesia Reactions: No Hx Malignant Hyperthermia: No Meds Allergies/Adverse Reactions: Allergies Allergy/AdvReac Type Severity Reaction Status Date / Time No Known Allergies Allergy Verified 02/07/17 22:42 - Medications Medications: Current Medications Acetaminophen (Tylenol 325mg Tab) 650 mg PO TID PRN PRN Reason: Pain, moderate (4-7) Last Admin: 07/19/17 02:23 Dose: 650 mg Cyproheptadine HCl (Periactin) 4 mg PO DAILY JOHANA Escitalopram Oxalate (Lexapro) 10 mg PO DAILY JOHANA Insulin Aspart (Novolog) 0 unit SC ACHS JOHANA PRN Reason: Protocol Quetiapine Fumarate (Seroquel) 100 mg PO HS JOHANA Trazodone HCl (Desyrel) 50 mg PO HS PRN PRN Reason: Insomnia Last Admin: 07/19/17 02:24 Dose: 50 mg Physical Exam - Constitutional Appears: Non-toxic - Head Exam Head Exam: ATRAUMATIC, NORMAL INSPECTION, NORMOCEPHALIC - Eye Exam Eye Exam: EOMI, Normal appearance - ENT Exam ENT Exam: absent: Mucous Membranes Moist, Normal Exam - Respiratory Exam Respiratory Exam: Chest Wall Tenderness, Clear to Auscultation Bilateral, NORMAL BREATHING PATTERN. absent: Rhonchi, Wheezes - Cardiovascular Exam Cardiovascular Exam: Tachycardia, +S1, +S2 - GI/Abdominal Exam GI & Abdominal Exam: Normal Bowel Sounds, Soft, Tenderness. absent: Distended - Neurological Exam Neurological exam: Alert, Oriented x3 - Psychiatric Exam Psychiatric exam: Anxious, Manic - Skin Skin Exam: Normal Color, Warm Results - Vital Signs Recent Vital Signs: Last Vital Signs Temp 96.8 F L 07/19/17 05:15 Pulse 102 H 07/19/17 05:15 Resp 20 07/19/17 05:15 BP 100/54 L 07/19/17 05:15 Pulse Ox 100 07/19/17 05:15 - Labs Result Diagrams: 07/19/17 08:14 07/20/17 07:14 Labs: Laboratory Results - last 24 hr 07/18/17 07/18/17 07/18/17 20:23 20:23 21:11 WBC 5.5 RBC 5.03 Hgb 14.6 Hct 44.8 MCV 89.1 MCH 29.0 MCHC 32.5 L RDW 13.9 Plt Count 236 MPV 10.0 Neut % (Auto) 67.3 Lymph % (Auto) 22.9 Hinds % (Auto) 8.5 Eos % (Auto) 0.3 Baso % (Auto) 1.0 Neut # 3.7 Lymph # 1.3 Hinds # 0.5 Eos # 0.0 Baso # 0.1 pO2 38 VBG pH 7.31 L VBG pCO2 33 L VBG HCO3 17.4 VBG Total CO2 17.6 L VBG O2 Sat (Calc) 79.4 H VBG Base Excess -8.6 L VBG Potassium 4.3 Glucose 330 H Lactate 2.3 H Sodium 135 136.0 Potassium 4.3 Chloride 96 L 98.0 Carbon Dioxide 15 L Anion Gap 29 H BUN 11 Creatinine 0.6 L Est GFR ( Amer) > 60 Est GFR (Non-Af Amer) > 60 POC Glucose (mg/dL) Random Glucose 313 H Lactic Acid Calcium 8.7 Total Bilirubin 1.2 AST 17 ALT 30 Alkaline Phosphatase 78 Total Creatine Kinase 48 L CK-MB (Mass) 1.27 Troponin I < 0.0120 Total Protein 6.8 Albumin 4.4 Globulin 2.4 Albumin/Globulin Ratio 1.8 Venous Blood Potassium 4.3 Urine Color Urine Clarity Urine pH Ur Specific [place] Urine Protein Urine Glucose (UA) Urine Ketones Urine Blood Urine Nitrate Urine Bilirubin Urine Urobilinogen Ur Leukocyte Esterase Urine Opiates Screen Urine Methadone Screen Ur Barbiturates Screen Ur Phencyclidine Scrn Ur Amphetamines Screen U Benzodiazepines Scrn U Oth Cocaine Metabols U Cannabinoids Screen Serum Ketones Moderate 07/18/17 07/18/17 07/18/17 21:40 21:40 23:08 WBC RBC Hgb Hct MCV MCH MCHC RDW Plt Count MPV Neut % (Auto) Lymph % (Auto) Hinds % (Auto) Eos % (Auto) Baso % (Auto) Neut # Lymph # Hinds # Eos # Baso # pO2 VBG pH VBG pCO2 VBG HCO3 VBG Total CO2 VBG O2 Sat (Calc) VBG Base Excess VBG Potassium Glucose Lactate Sodium Potassium Chloride Carbon Dioxide Anion Gap BUN Creatinine Est GFR ( Amer) Est GFR (Non-Af Amer) POC Glucose (mg/dL) 265 H Random Glucose Lactic Acid Calcium Total Bilirubin AST ALT Alkaline Phosphatase Total Creatine Kinase CK-MB (Mass) Troponin I Total Protein Albumin Globulin Albumin/Globulin Ratio Venous Blood Potassium Urine Color Straw Urine Clarity Clear Urine pH 6.0 Ur Specific [place] 1.024 Urine Protein Negative Urine Glucose (UA) 3+ H Urine Ketones 2+ H Urine Blood Negative Urine Nitrate Negative Urine Bilirubin Negative Urine Urobilinogen Normal Ur Leukocyte Esterase Neg Urine Opiates Screen Negative Urine Methadone Screen Negative Ur Barbiturates Screen Negative Ur Phencyclidine Scrn Negative Ur Amphetamines Screen Negative U Benzodiazepines Scrn Negative U Oth Cocaine Metabols Positive H U Cannabinoids Screen Positive H Serum Ketones 07/19/17 07/19/17 01:01 06:42 WBC RBC Hgb Hct MCV MCH MCHC RDW Plt Count MPV Neut % (Auto) Lymph % (Auto) Hinds % (Auto) Eos % (Auto) Baso % (Auto) Neut # Lymph # Hind[place] # Eos # Baso # pO2 VBG pH VBG pCO2 VBG HCO3 VBG Total CO2 VBG O2 Sat (Calc) VBG Base Excess VBG Potassium Glucose Lactate Sodium Potassium Chloride Carbon Dioxide Anion Gap BUN Creatinine Est GFR ( Amer) Est GFR (Non-Af Amer) POC Glucose (mg/dL) 243 H Random Glucose Lactic Acid 1.1 Calcium Total Bilirubin AST ALT Alkaline Phosphatase Total Creatine Kinase CK-MB (Mass) Troponin I Total Protein Albumin Globulin Albumin/Globulin Ratio Venous Blood Potassium Urine Color Urine Clarity Urine pH Ur Specific [place] Urine Protein Urine Glucose (UA) Urine Ketones Urine Blood Urine Nitrate Urine Bilirubin Urine Urobilinogen Ur Leukocyte Esterase Urine Opiates Screen Urine Methadone Screen Ur Barbiturates Screen Ur Phencyclidine Scrn Ur Amphetamines Screen U Benzodiazepines Scrn U Oth Cocaine Metabols U Cannabinoids Screen Serum Ketones Assessment & Plan - Assessment and Plan (Free Text) Assessment: 26 year old male with a past medical history of IDDM, diabetic neuropathy, Chrohn's disease, bipolar disorder, schizophrenia, anxiety disorder and depression who presented to [facility] with complaints of chest pain. Plan: 1. Chest pain r/o coronary vasospam due to cocaine consumption vs medications for schizophrenia and bipolar disorder vs costochondritis -EKG abnormalities; when comparing EKGs from past admissions to current admissions there are prominent ST changes which need further evaluation and work up; stress test will be done for further evaluation -Troponins negative x2 -Echo ordered; results pending -For chest pain administer a max of two doses, five minutes apart of 0.4 SL nitrogylcerin with 1 mg Lorazepam IVP -Reciprocal chest pain upon palpation of chest wall <Terrell Dickerson - Last Filed: 07/21/17 00:32> Meds - Medications Medications: Current Medications Acetaminophen (Tylenol 325mg Tab) 650 mg PO TID PRN PRN Reason: Pain, moderate (4-7) Last Admin: 07/19/17 02:23 Dose: 650 mg Buspirone HCl (Buspar) 10 mg PO BID PRN PRN Reason: Anxiety Cyproheptadine HCl (Periactin) 4 mg PO DAILY [facility] Last Admin: 07/20/17 09:49 Dose: Not Given Escitalopram Oxalate (Lexapro) 20 mg PO DAILY [facility] Last Admin: 07/20/17 09:49 Dose: Not Given Hydromorphone HCl (Dilaudid) 0.25 mg IVP Q8 PRN PRN Reason: Pain, severe (8-10) Last Admin: 07/20/17 23:46 Dose: 0.25 mg Hydroxyzine HCl (Atarax) 25 mg PO Q6 PRN PRN Reason: Agitation Last Admin: 07/20/17 07:14 Dose: 25 mg Dextrose/Sodium Chloride (Dextrose 5%/0.9% Ns 1000 Ml) 1,000 mls @ 150 mls/hr IV .Q6H40M [facility] Last Admin: 07/20/17 20:30 Dose: 150 mls/hr Insulin Glargine (Lantus) 10 unit SC [facility] Last Admin: 07/20/17 21:40 Dose: 10 units Insulin Human Regular (Novolin R) 0 unit SC Q6 JOHANA PRN Reason: Protocol Last Admin: 07/21/17 00:22 Dose: Not Given Pantoprazole Sodium (Protonix Ec Tab) 40 mg PO BID [facility] Polyethylene Glycol (Miralax) 17 gm PO DAILY [facility] Last Admin: 07/20/17 09:49 Dose: Not Given Quetiapine Fumarate (Seroquel) 100 mg PO HS [facility] Last Admin: 07/20/17 22:04 Dose: Not Given Sucralfate (Carafate Oral Susp) 1 gm PO QID [facility] Last Admin: 07/20/17 21:40 Dose: 1 gm Trazodone HCl (Desyrel) 50 mg PO HS PRN PRN Reason: Insomnia Last Admin: 07/19/17 02:24 Dose: 50 mg Results - Vital Signs Recent Vital Signs: Last Vital Signs Temp 98.3 F 07/20/17 23:20 Pulse 94 H 07/20/17 23:20 Resp 20 07/20/17 23:20 BP 109/61 07/20/17 23:20 Pulse Ox 99 07/20/17 23:20 - Labs Result Diagrams: 07/19/17 08:14 07/20/17 20:57 Labs: Laboratory Results - last 24 hr 07/20/17 07/20/17 07/20/17 06:26 07:14 07:14 Sodium 133 Potassium 4.4 Chloride 100 Carbon Dioxide 12 L Anion Gap 26 H BUN 7 L Creatinine 0.7 L Est GFR ( Amer) > 60 Est GFR (Non-Af Amer) > 60 POC Glucose (mg/dL) 321 H Random Glucose 366 H Hemoglobin A1c 13.1 H Calcium 8.2 L Total Bilirubin 1.0 AST 13 L ALT 23 Alkaline Phosphatase 75 Total Protein 6.5 Albumin 4.0 Globulin 2.5 Albumin/Globulin Ratio 1.6 TSH 3rd Generation 0.20 L 07/20/17 07/20/17 07/20/17 11:17 16:32 20:57 Sodium 135 Potassium 3.6 Chloride 102 Carbon Dioxide 21 L Anion Gap 16 BUN 6 L Creatinine 0.6 L Est GFR ( Amer) > 60 Est GFR (Non-Af Amer) > 60 POC Glucose (mg/dL) 260 H 272 H Random Glucose 271 H Hemoglobin A1c Calcium 8.5 L Total Bilirubin AST ALT Alkaline Phosphatase Total Protein Albumin Globulin Albumin/Globulin Ratio TSH 3rd Generation 07/20/17 07/21/17 21:09 00:05 Sodium Potassium Chloride Carbon Dioxide Anion Gap BUN Creatinine Est GFR ( Amer) Est GFR (Non-Af Amer) POC Glucose (mg/dL) 272 H 272 H Random Glucose Hemoglobin A1c Calcium Total Bilirubin AST ALT Alkaline Phosphatase Total Protein Albumin Globulin Albumin/Globulin Ratio TSH 3rd Generation Attending/Attestation - Attestation I have personally seen and examined this patient.: Yes I have fully participated in the care of the patient.: Yes I have reviewed all pertinent clinical information: Yes Notes (Text): atypical chest pain hx of IDDM on psychotropic meds dynamic ST changes ( ? med related ) echo stress test
[2017-07-19 08:25] LABS: BASO % 0.5 % (0.0-2.0); EOS % 0.2 % (0.0-4.0); HEMATOCRIT 44.8 % (35.0-51.0); LYMPH # 1.2 K/uL (1.0-4.3); LYMPH % 15.8 % (20.0-40.0); MEAN CELL VOLUME 89.6 fL (80.0-94.0); MEAN CORPUSCULAR HGB CONC 32.3 g/dL (33.0-37.0); MEAN PLATELET VOLUME 9.9 fL (7.2-11.7); MONO # 0.6 K/uL (0.0-0.8); MONO % 8.3 % (0.0-10.0); NRBC % 0.1 % (0.0-2.0); RED CELL DISTRIBUTION WIDTH 14.2 % (11.5-14.5); WHITE BLOOD COUNT 7.5 K/uL (4.8-10.8)
[2017-07-19] MEDS: (Novolog) Insulin Aspart, Recombinant 100 u/ml 10 ml vial SC SCH ×4 (08:42→17:18)
[2017-07-19 08:47] LABS: ALB/GLOB RATIO 1.2 (1.0-2.1); ALKALINE PHOSPHATASE 76 U/L (38-126); ALT/SGPT 35 U/L (21-72); AST/SGOT 14 U/L (17-59); BILIRUBIN,TOTAL 1.3 mg/dL (0.2-1.3); BLOOD UREA NITROGEN 9 mg/dL (9-20); CALCIUM 8.4 mg/dl (8.6-10.4); CARBON DIOXIDE 15 mmol/L (22-30); CHLORIDE 99 mmol/L (98-107); GFR AFRICAN-AMERICAN > 60; GLUCOSE,RANDOM 321 mg/dL (75-110); POTASSIUM 4.7 mmol/L (3.6-5.2); SODIUM 135 mmol/L (132-148); TOTAL PROTEIN 7.6 g/dL (6.3-8.3)
[2017-07-19] MEDS: HYDROmorphone 0.5 mg/0.5 ml ISec IVP PRN ×2 (09:10→17:14)
--- NOTE | 2017-07-19 10:48 | CP.PCM.CON ---
<Benita Rodriguez - Last Filed: 07/19/17 14:25> History of Present Illness - History of Present Illness History of Present Illness: GI Fellow PGY4 Consult Note This is a 26 year old male with h/o uncontrolled DM, schizophrenia, illicit drug abuse who presents for evaluation of abdominal pain, nausea and vomiting. Pt was just discharged from the hospital for DKA/Hyperglycemia. He is complaining of severe nausea and unable to tolerate any liquids or solids. Today pt was noticed to have coffee ground emesis, pt reports this is the first time and was having nonbloody bilious emesis prior to this episode. Pt's BG are uncontrolled in 300 range with recent HgbA1c 13.5. Pt also admits to cocaine use and marijuana use. Pt reports having an EGD and [place] 6[place] [facility] but does recall the results. ROS: A 12pt ROS was negative except as above. 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) - RENAL Hx Chronic Kidney Disease: No - ENDOCRINE/METABOLIC Hx Endocrine Disorders: Yes Hx Diabetes Mellitus Type 1: Yes (insulin dependent) - HEMATOLOGICAL/ONCOLOGICAL Hx Human Immunodeficiency Virus (HIV): No - INTEGUMENTARY Hx Dermatological Problems: No - MUSCULOSKELETAL/RHEUMATOLOGICAL Hx Falls: No - GASTROINTESTINAL Hx Crohn's Disease: Yes - GENITOURINARY/GYNECOLOGICAL Hx Genitourinary Disorders: No - PSYCHIATRIC Hx Substance Use: Yes (MARIJUANA) - SURGICAL HISTORY Hx Surgeries: Yes Other/Comment: wired Jaw - ANESTHESIA Hx Anesthesia: Yes Hx Anesthesia Reactions: No Hx Malignant Hyperthermia: No Meds Allergies/Adverse Reactions: Allergies Allergy/AdvReac Type Severity Reaction Status Date / Time No Known Allergies Allergy Verified 02/07/17 22:42 - Medications Medications: Current Medications Acetaminophen (Tylenol 325mg Tab) 650 mg PO TID PRN PRN Reason: Pain, moderate (4-7) Last Admin: 07/19/17 02:23 Dose: 650 mg Cyproheptadine HCl (Periactin) 4 mg PO DAILY [facility] Escitalopram Oxalate (Lexapro) 10 mg PO DAILY JOHANA Hydromorphone HCl (Dilaudid) 0.25 mg IVP Q8 PRN PRN Reason: Pain, severe (8-10) Last Admin: 07/19/17 09:10 Dose: 0.25 mg Insulin Aspart (Novolog) 0 unit SC ACHS JOHANA PRN Reason: Protocol Last Admin: 07/19/17 08:42 Dose: Not Given Ondansetron HCl (Zofran Inj) 4 mg IVP Q6 PRN PRN Reason: Nausea/Vomiting Last Admin: 07/19/17 09:07 Dose: 4 mg Pantoprazole Sodium (Protonix Inj) 40 mg IVP DAILY [facility] Quetiapine Fumarate (Seroquel) 100 mg PO HS JOHANA Trazodone HCl (Desyrel) 50 mg PO HS PRN PRN Reason: Insomnia Last Admin: 07/19/17 02:24 Dose: 50 mg Physical Exam - Constitutional Appears: In Acute Distress, Cachectic - Head Exam Head Exam: ATRAUMATIC, NORMAL INSPECTION, NORMOCEPHALIC - Eye Exam Eye Exam: EOMI, Normal appearance, PERRL Pupil Exam: PERRL - ENT Exam ENT Exam: Mucous Membranes Moist - Neck Exam Neck exam: Positive for: Normal Inspection - Respiratory Exam Respiratory Exam: Clear to Auscultation Bilateral, NORMAL BREATHING PATTERN - Cardiovascular Exam Cardiovascular Exam: REGULAR RHYTHM, +S1, +S2 - GI/Abdominal Exam GI & Abdominal Exam: Normal Bowel Sounds, Soft, Tenderness. absent: Diminished Bowel Sounds, Distended, Organomegaly - Rectal Exam Rectal Exam: Deferred - Extremities Exam Extremities exam: Positive for: normal inspection. Negative for: pedal edema - Back Exam Back exam: NORMAL INSPECTION - Neurological Exam Neurological exam: Alert, Oriented x3 - Psychiatric Exam Psychiatric exam: Anxious - Skin Skin Exam: Dry, Intact, Normal Color, Warm Results - Vital Signs Recent Vital Signs: Last Vital Signs Temp 98.4 F 07/19/17 09:05 Pulse 105 H 07/19/17 09:05 Resp 20 07/19/17 09:05 BP 114/72 07/19/17 09:05 Pulse Ox 97 07/19/17 09:05 - Labs Result Diagrams: 07/19/17 08:14 07/19/17 08:14 Labs: Laboratory Results - last 24 hr 07/18/17 07/18/17 07/18/17 20:23 20:23 21:11 WBC 5.5 RBC 5.03 Hgb 14.6 Hct 44.8 MCV 89.1 MCH 29.0 MCHC 32.5 L RDW 13.9 Plt Count 236 MPV 10.0 Neut % (Auto) 67.3 Lymph % (Auto) 22.9 [place] % (Auto) 8.5 Eos % (Auto) 0.3 Baso % (Auto) 1.0 Neut # 3.7 Lymph # 1.3 [place] # 0.5 Eos # 0.0 Baso # 0.1 pO2 38 VBG pH 7.31 L VBG pCO2 33 L VBG HCO3 17.4 VBG Total CO2 17.6 L VBG O2 Sat (Calc) 79.4 H VBG Base Excess -8.6 L VBG Potassium 4.3 Glucose 330 H Lactate 2.3 H Sodium 135 136.0 Potassium 4.3 Chloride 96 L 98.0 Carbon Dioxide 15 L Anion Gap 29 H BUN 11 Creatinine 0.6 L Est GFR ( Amer) > 60 Est GFR (Non-Af Amer) > 60 POC Glucose (mg/dL) Random Glucose 313 H Lactic Acid Calcium 8.7 Total Bilirubin 1.2 AST 17 ALT 30 Alkaline Phosphatase 78 Total Creatine Kinase 48 L CK-MB (Mass) 1.27 Troponin I < 0.0120 Total Protein 6.8 Albumin 4.4 Globulin 2.4 Albumin/Globulin Ratio 1.8 Venous Blood Potassium 4.3 Urine Color Urine Clarity Urine pH Ur Specific [place] Urine Protein Urine Glucose (UA) Urine Ketones Urine Blood Urine Nitrate Urine Bilirubin Urine Urobilinogen Ur Leukocyte Esterase Urine Opiates Screen Urine Methadone Screen Ur Barbiturates Screen Ur Phencyclidine Scrn Ur Amphetamines Screen U Benzodiazepines Scrn U Oth Cocaine Metabols U Cannabinoids Screen Serum Ketones Moderate 07/18/17 07/18/17 07/18/17 21:40 21:40 23:08 WBC RBC Hgb Hct MCV MCH MCHC RDW Plt Count MPV Neut % (Auto) Lymph % (Auto) [place] % (Auto) Eos % (Auto) Baso % (Auto) Neut # Lymph # [place] # Eos # Baso # pO2 VBG pH VBG pCO2 VBG HCO3 VBG Total CO2 VBG O2 Sat (Calc) VBG Base Excess VBG Potassium Glucose Lactate Sodium Potassium Chloride Carbon Dioxide Anion Gap BUN Creatinine Est GFR ( Amer) Est GFR (Non-Af Amer) POC Glucose (mg/dL) 265 H Random Glucose Lactic Acid Calcium Total Bilirubin AST ALT Alkaline Phosphatase Total Creatine Kinase CK-MB (Mass) Troponin I Total Protein Albumin Globulin Albumin/Globulin Ratio Venous Blood Potassium Urine Color Straw Urine Clarity Clear Urine pH 6.0 Ur Specific [place] 1.024 Urine Protein Negative Urine Glucose (UA) 3+ H Urine Ketones 2+ H Urine Blood Negative Urine Nitrate Negative Urine Bilirubin Negative Urine Urobilinogen Normal Ur Leukocyte Esterase Neg Urine Opiates Screen Negative Urine Methadone Screen Negative Ur Barbiturates Screen Negative Ur Phencyclidine Scrn Negative Ur Amphetamines Screen Negative U Benzodiazepines Scrn Negative U Oth Cocaine Metabols Positive H U Cannabinoids Screen Positive H Serum Ketones 07/19/17 07/19/17 07/19/17 01:01 06:42 08:14 WBC RBC Hgb Hct MCV MCH MCHC RDW Plt Count MPV Neut % (Auto) Lymph % (Auto) [place] % (Auto) Eos % (Auto) Baso % (Auto) Neut # Lymph # [place] # Eos # Baso # pO2 VBG pH VBG pCO2 VBG HCO3 VBG Total CO2 VBG O2 Sat (Calc) VBG Base Excess VBG Potassium Glucose Lactate Sodium Potassium Chloride Carbon Dioxide Anion Gap BUN Creatinine Est GFR ( Amer) Est GFR (Non-Af Amer) POC Glucose (mg/dL) 243 H Random Glucose Lactic Acid 1.1 Calcium Total Bilirubin AST ALT Alkaline Phosphatase Total Creatine Kinase 43 L CK-MB (Mass) 1.09 Troponin I < 0.0120 Total Protein Albumin Globulin Albumin/Globulin Ratio Venous Blood Potassium Urine Color Urine Clarity Urine pH Ur Specific [place] Urine Protein Urine Glucose (UA) Urine Ketones Urine Blood Urine Nitrate Urine Bilirubin Urine Urobilinogen Ur Leukocyte Esterase Urine Opiates Screen Urine Methadone Screen Ur Barbiturates Screen Ur Phencyclidine Scrn Ur Amphetamines Screen U Benzodiazepines Scrn U Oth Cocaine Metabols U Cannabinoids Screen Serum Ketones 07/19/17 07/19/17 07/19/17 08:14 08:14 10:24 WBC 7.5 RBC 5.00 Hgb 14.5 Hct 44.8 MCV 89.6 MCH 29.0 MCHC 32.3 L RDW 14.2 Plt Count 231 MPV 9.9 Neut % (Auto) 75.2 H Lymph % (Auto) 15.8 L [place] % (Auto) 8.3 Eos % (Auto) 0.2 Baso % (Auto) 0.5 Neut # 5.7 Lymph # 1.2 [place] # 0.6 Eos # 0.0 Baso # 0.0 pO2 VBG pH VBG pCO2 VBG HCO3 VBG Total CO2 VBG O2 Sat (Calc) VBG Base Excess VBG Potassium Glucose Lactate Sodium 135 Potassium 4.7 Chloride 99 Carbon Dioxide 15 L Anion Gap 25 H BUN 9 Creatinine 0.6 L Est GFR ( Amer) > 60 Est GFR (Non-Af Amer) > 60 POC Glucose (mg/dL) 294 H Random Glucose 321 H Lactic Acid Calcium 8.4 L Total Bilirubin 1.3 AST 14 L ALT 35 Alkaline Phosphatase 76 Total Creatine Kinase CK-MB (Mass) Troponin I Total Protein 7.6 Albumin 4.1 Globulin 3.5 Albumin/Globulin Ratio 1.2 Venous Blood Potassium Urine Color Urine Clarity Urine pH Ur Specific [place] Urine Protein Urine Glucose (UA) Urine Ketones Urine Blood Urine Nitrate Urine Bilirubin Urine Urobilinogen Ur Leukocyte Esterase Urine Opiates Screen Urine Methadone Screen Ur Barbiturates Screen Ur Phencyclidine Scrn Ur Amphetamines Screen U Benzodiazepines Scrn U Oth Cocaine Metabols U Cannabinoids Screen Serum Ketones Assessment & Plan - Assessment and Plan (Free Text) Assessment: This is a 26y male with abdominal pain, nausea and vomiting. 1. Abdominal pain, Nausea and Vomiting ddx: gastroparesis, cannabis induced cyclical vomiting syndrome 2. Coffee ground emesis ddx: esophagitis, gastritis 3. Illicit drug use Plan: -Continue supportive care with IVF hydration, pain control and anti-emetics -Advance to clear liquid diet as tolerated -Pt with one episode of coffee ground emesis no further active GI bleeding, H/H stable, hemodynamically stable -No plan for endoscopic evaluation at this time -Pt with recent EGD a few months ago suspect esophagitis,gastritis -Continue IV PPI daily -Abdominal pain, nausea and vomiting likely from hyperglycemia, recommend tight glycemic control with insulin therapy, Endocrinology consult -Counseled on marijuana cessation which can be contributing to symptoms of cyclical vomiting syndrome -Bowel regimen with Miralax daily -Will continue to follow pt closely <Efrain Troy - Last Filed: 07/19/17 16:14> Meds - Medications Medications: Current Medications Acetaminophen (Tylenol 325mg Tab) 650 mg PO TID PRN PRN Reason: Pain, moderate (4-7) Last Admin: 07/19/17 02:23 Dose: 650 mg Cyproheptadine HCl (Periactin) 4 mg PO DAILY [facility] Last Admin: 07/19/17 10:56 Dose: Not Given Escitalopram Oxalate (Lexapro) 10 mg PO DAILY [facility] Last Admin: 07/19/17 10:55 Dose: Not Given Hydromorphone HCl (Dilaudid) 0.25 mg IVP Q8 PRN PRN Reason: Pain, severe (8-10) Last Admin: 07/19/17 09:10 Dose: 0.25 mg Insulin Aspart (Novolog) 0 unit SC ACHS JOHANA PRN Reason: Protocol Last Admin: 07/19/17 12:53 Dose: 3 unit Pantoprazole Sodium (Protonix Inj) 40 mg IVP DAILY [facility] Last Admin: 07/19/17 10:45 Dose: 40 mg Polyethylene Glycol (Miralax) 17 gm PO DAILY [facility] Quetiapine Fumarate (Seroquel) 100 mg PO HS JOHANA Trazodone HCl (Desyrel) 50 mg PO HS PRN PRN Reason: Insomnia Last Admin: 07/19/17 02:24 Dose: 50 mg Results - Vital Signs Recent Vital Signs: Last Vital Signs Temp 98.1 F 07/19/17 15:28 Pulse 88 07/19/17 15:28 Resp 18 07/19/17 15:28 BP 112/71 07/19/17 15:28 Pulse Ox 99 07/19/17 15:28 - Labs Result Diagrams: 07/19/17 08:14 07/19/17 08:14 Labs: Laboratory Results - last 24 hr 07/18/17 07/18/17 07/18/17 20:23 20:23 21:11 WBC 5.5 RBC 5.03 Hgb 14.6 Hct 44.8 MCV 89.1 MCH 29.0 MCHC 32.5 L RDW 13.9 Plt Count 236 MPV 10.0 Neut % (Auto) 67.3 Lymph % (Auto) 22.9 [place] % (Auto) 8.5 Eos % (Auto) 0.3 Baso % (Auto) 1.0 Neut # 3.7 Lymph # 1.3 [place] # 0.5 Eos # 0.0 Baso # 0.1 pO2 38 VBG pH 7.31 L VBG pCO2 33 L VBG HCO3 17.4 VBG Total CO2 17.6 L VBG O2 Sat (Calc) 79.4 H VBG Base Excess -8.6 L VBG Potassium 4.3 Glucose 330 H Lactate 2.3 H Sodium 135 136.0 Potassium 4.3 Chloride 96 L 98.0 Carbon Dioxide 15 L Anion Gap 29 H BUN 11 Creatinine 0.6 L Est GFR ( Amer) > 60 Est GFR (Non-Af Amer) > 60 POC Glucose (mg/dL) Random Glucose 313 H Lactic Acid Calcium 8.7 Total Bilirubin 1.2 AST 17 ALT 30 Alkaline Phosphatase 78 Total Creatine Kinase 48 L CK-MB (Mass) 1.27 Troponin I < 0.0120 Total Protein 6.8 Albumin 4.4 Globulin 2.4 Albumin/Globulin Ratio 1.8 Venous Blood Potassium 4.3 Urine Color Urine Clarity Urine pH Ur Specific [place] Urine Protein Urine Glucose (UA) Urine Ketones Urine Blood Urine Nitrate Urine Bilirubin Urine Urobilinogen Ur Leukocyte Esterase Urine Opiates Screen Urine Methadone Screen Ur Barbiturates Screen Ur Phencyclidine Scrn Ur Amphetamines Screen U Benzodiazepines Scrn U Oth Cocaine Metabols U Cannabinoids Screen Serum Ketones Moderate 07/18/17 07/18/17 07/18/17 21:40 21:40 23:08 WBC RBC Hgb Hct MCV MCH MCHC RDW Plt Count MPV Neut % (Auto) Lymph % (Auto) [place] % (Auto) Eos % (Auto) Baso % (Auto) Neut # Lymph # [place] # Eos # Baso # pO2 VBG pH VBG pCO2 VBG HCO3 VBG Total CO2 VBG O2 Sat (Calc) VBG Base Excess VBG Potassium Glucose Lactate Sodium Potassium Chloride Carbon Dioxide Anion Gap BUN Creatinine Est GFR ( Amer) Est GFR (Non-Af Amer) POC Glucose (mg/dL) 265 H Random Glucose Lactic Acid Calcium Total Bilirubin AST ALT Alkaline Phosphatase Total Creatine Kinase CK-MB (Mass) Troponin I Total Protein Albumin Globulin Albumin/Globulin Ratio Venous Blood Potassium Urine Color Straw Urine Clarity Clear Urine pH 6.0 Ur Specific [place] 1.024 Urine Protein Negative Urine Glucose (UA) 3+ H Urine Ketones 2+ H Urine Blood Negative Urine Nitrate Negative Urine Bilirubin Negative Urine Urobilinogen Normal Ur Leukocyte Esterase Neg Urine Opiates Screen Negative Urine Methadone Screen Negative Ur Barbiturates Screen Negative Ur Phencyclidine Scrn Negative Ur Amphetamines Screen Negative U Benzodiazepines Scrn Negative U Oth Cocaine Metabols Positive H U Cannabinoids Screen Positive H Serum Ketones 07/19/17 07/19/17 07/19/17 01:01 06:42 08:14 WBC RBC Hgb Hct MCV MCH MCHC RDW Plt Count MPV Neut % (Auto) Lymph % (Auto) [place] % (Auto) Eos % (Auto) Baso % (Auto) Neut # Lymph # [place] # Eos # Baso # pO2 VBG pH VBG pCO2 VBG HCO3 VBG Total CO2 VBG O2 Sat (Calc) VBG Base Excess VBG Potassium Glucose Lactate Sodium Potassium Chloride Carbon Dioxide Anion Gap BUN Creatinine Est GFR ( Amer) Est GFR (Non-Af Amer) POC Glucose (mg/dL) 243 H Random Glucose Lactic Acid 1.1 Calcium Total Bilirubin AST ALT Alkaline Phosphatase Total Creatine Kinase 43 L CK-MB (Mass) 1.09 Troponin I < 0.0120 Total Protein Albumin Globulin Albumin/Globulin Ratio Venous Blood Potassium Urine Color Urine Clarity Urine pH Ur Specific [place] Urine Protein Urine Glucose (UA) Urine Ketones Urine Blood Urine Nitrate Urine Bilirubin Urine Urobilinogen Ur Leukocyte Esterase Urine Opiates Screen Urine Methadone Screen Ur Barbiturates Screen Ur Phencyclidine Scrn Ur Amphetamines Screen U Benzodiazepines Scrn U Oth Cocaine Metabols U Cannabinoids Screen Serum Ketones 07/19/17 07/19/17 07/19/17 08:14 08:14 10:24 WBC 7.5 RBC 5.00 Hgb 14.5 Hct 44.8 MCV 89.6 MCH 29.0 MCHC 32.3 L RDW 14.2 Plt Count 231 MPV 9.9 Neut % (Auto) 75.2 H Lymph % (Auto) 15.8 L [place] % (Auto) 8.3 Eos % (Auto) 0.2 Baso % (Auto) 0.5 Neut # 5.7 Lymph # 1.2 [place] # 0.6 Eos # 0.0 Baso # 0.0 pO2 VBG pH VBG pCO2 VBG HCO3 VBG Total CO2 VBG O2 Sat (Calc) VBG Base Excess VBG Potassium Glucose Lactate Sodium 135 Potassium 4.7 Chloride 99 Carbon Dioxide 15 L Anion Gap 25 H BUN 9 Creatinine 0.6 L Est GFR ( Amer) > 60 Est GFR (Non-Af Amer) > 60 POC Glucose (mg/dL) 294 H Random Glucose 321 H Lactic Acid Calcium 8.4 L Total Bilirubin 1.3 AST 14 L ALT 35 Alkaline Phosphatase 76 Total Creatine Kinase CK-MB (Mass) Troponin I Total Protein 7.6 Albumin 4.1 Globulin 3.5 Albumin/Globulin Ratio 1.2 Venous Blood Potassium Urine Color Urine Clarity Urine pH Ur Specific [place] Urine Protein Urine Glucose (UA) Urine Ketones Urine Blood Urine Nitrate Urine Bilirubin Urine Urobilinogen Ur Leukocyte Esterase Urine Opiates Screen Urine Methadone Screen Ur Barbiturates Screen Ur Phencyclidine Scrn Ur Amphetamines Screen U Benzodiazepines Scrn U Oth Cocaine Metabols U Cannabinoids Screen Serum Ketones 07/19/17 07/19/17 11:30 14:11 WBC RBC Hgb Hct MCV MCH MCHC RDW Plt Count MPV Neut % (Auto) Lymph % (Auto) [place] % (Auto) Eos % (Auto) Baso % (Auto) Neut # Lymph # [place] # Eos # Baso # pO2 VBG pH VBG pCO2 VBG HCO3 VBG Total CO2 VBG O2 Sat (Calc) VBG Base Excess VBG Potassium Glucose Lactate Sodium Potassium Chloride Carbon Dioxide Anion Gap BUN Creatinine Est GFR ( Amer) Est GFR (Non-Af Amer) POC Glucose (mg/dL) 285 H Random Glucose Lactic Acid Calcium Total Bilirubin AST ALT Alkaline Phosphatase Total Creatine Kinase 44 L CK-MB (Mass) 1.18 Troponin I < 0.0120 Total Protein Albumin Globulin Albumin/Globulin Ratio Venous Blood Potassium Urine Color Urine Clarity Urine pH Ur Specific [place] Urine Protein Urine Glucose (UA) Urine Ketones Urine Blood Urine Nitrate Urine Bilirubin Urine Urobilinogen Ur Leukocyte Esterase Urine Opiates Screen Urine Methadone Screen Ur Barbiturates Screen Ur Phencyclidine Scrn Ur Amphetamines Screen U Benzodiazepines Scrn U Oth Cocaine Metabols U Cannabinoids Screen Serum Ketones Attending/Attestation - Attestation I have personally seen and examined this patient.: Yes I have fully participated in the care of the patient.: Yes I have reviewed all pertinent clinical information: Yes Notes (Text): 12/06/17 16:07 I have seen and examined patient with GI fellow. Agree with above documentation with the following additions. In brief, this is a 26 year old male with history of IDDM diagnosed at age 8, poorly controlled with recent HbA1C >13, schizophrenia, polysubstance abuse who presents to hospital with complaint of abdominal pain, nausea, and vomiting which has been present for the past one week. During this time period he describes profound nausea with generalized abdominal discomfort and multiple episodes of non-bloody emesis. His last episode of vomiting was yesterday. He denies sick contacts, recent travel, antibiotic use, or unusual food consumption. He admits to recent cocaine and marijuana use. He apparently had a recent EGD[place] [facility] [place] ago which was reportedly normal as per patient. DM - uncontrolled, recent hospital admission for management of DKA Schizophrenia Polysubstance abuse Abdominal pain, nausea, vomiting - likely related to poorly controlled DM vs frequent marijuana use vs gastroenteritis - Liquid diet as tolerated - Anti-emetic therapy PRN - Obtain copies of recent endoscopic reports from [facility] - Continue with PPI therapy for time being - Patient requires more optimal blood glucose control, consider endocrine consultation given recurrent episodes of symptomatic hyperglycemia - Substance abuse cessation counseling - Will continue to monitor patient clinical course
--- NOTE | 2017-07-19 15:21 | PCM.PSYCH ---
Initial Psychiatric Evaluation - Initial Psychiatric Evaluation Type of Admission: Voluntary Legal Status: Capacity Chief Complaint (in patient's own words): "My stomach hurts" History of Present Illness and Precipitating Events: The pt is seen, chart reviewed, case discussed with staff Pt is a 26y/o male with a history of Depression and Bipolar. He reprots that he lives alone. Pt is unemployed. Pt is extremely irritable and agitated during the interview and was not cooperative. Pt was a poor historian and asked to be left alone multiple times during the interview. Pt reported a history of detox at [facility] 1 year ago. Pt also reported a suicide attempt 1 year ago. Pt reports using 1 gram of marijuana "every other day since he was 12 years old. " He denies alcohol, tobacco, opioid, cocaine use. Pt reports that he was not able to sleep last night. Pt reported that his appetite has decreased due to the abdominal pain. Pt denies Suicidal ideations, Homicidal ideations, visual hallucinations, anxiety, paranoia. Suspicious that this admission may be the result of a suicide attempt. Pt is an elopement risk. Past MHX: DM Type 1 Past Psychiatric HX: Depression, Bipolar Current Medications: Active Medications Generic Name Dose Route Start Last Admin Trade Name Freq PRN Reason Stop Dose Admin Acetaminophen 650 mg 07/19/17 02:05 07/19/17 02:23 Tylenol 325mg Tab PO 650 mg TID PRN Administration Pain, moderate (4-7) Cyproheptadine HCl 4 mg 07/19/17 10:00 07/19/17 10:56 Periactin PO Not Given DAILY JOHANA Escitalopram Oxalate 10 mg 07/19/17 10:00 07/19/17 10:55 Lexapro PO Not Given DAILY JHOANA Hydromorphone HCl 0.25 mg 07/19/17 08:38 07/19/17 09:10 Dilaudid IVP 0.25 mg Q8 PRN Administration Pain, severe (8-10) Insulin Aspart 0 unit 07/19/17 07:30 07/19/17 12:53 Novolog SC 3 unit ACHS JOHANA Administration Protocol Pantoprazole Sodium 40 mg 07/19/17 10:00 07/19/17 10:45 Protonix Inj IVP 40 mg DAILY JOHANA Administration Polyethylene Glycol 17 gm 07/20/17 10:00 Miralax PO DAILY JOHANA Quetiapine Fumarate 100 mg 07/19/17 22:00 Seroquel PO HS JOHANA Trazodone HCl 50 mg 07/19/17 02:01 07/19/17 02:24 Desyrel PO 50 mg HS PRN Administration Insomnia Past Psychiatric History - Past Psychiatric History Previous Treatment History: Inpatient Pertinent Medical Hx (Current Medical&Sleep Prob, Allergies): Allergies Allergy/AdvReac Type Severity Reaction Status Date / Time No Known Allergies Allergy Verified 02/07/17 22:42 Insulin Lispro [Humalog] 20 unit SQ TID #0 vial 09/03/15 QUEtiapine [Seroquel] 100 mg PO HS #30 tab 07/01/16 traZODone [Desyrel] 50 mg PO HS PRN #30 tab 07/01/16 Review of Systems - Review of Systems All systems: reviewed and no additional remarkable complaints except - Neurological Neurological: UNREMARKABLE - Psychiatric Psychiatric: Abnormal Sleep Pattern, Irritability Mental Status Examination - Personal Presentation Personal Presentation: Looks stated age - Affect Affect: Constricted - Motor Activity Motor Activity: Psychomotor Agitation - Speech Speech: Disorganized - Mood Mood: Depressed, Anxious - Formal Thought Process Formal Thought Process: No Impairment - Obsessions/Compulsions Obsessions: No Compulsions: No - Cognitive Functions Orientation: Person, Place, Situation, Time Sensorium: Alert Attention/Concentration: Attentive Abstract Thinking: Daisy Estimate of Intelligence: Below average Judgement: Imparied, as evidence by: Poor judgement, Imparied, as evidence by: Lack of insight into illness - Risk Risk: Elopement, Diminished functioning DSM 5 DX - DSM 5 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
[2017-07-19] MEDS: (Novolin R) Insulin Human Regular 100 units/ml vial SC SCH (21:49)
[2017-07-19] MEDS: Dextrose 5%/0.9% NS 1,000 ML IV SCH (21:55)
[2017-07-20] MEDS: HYDROmorphone 0.5 mg/0.5 ml ISec IVP PRN ×3 (02:39→23:46)
--- NOTE | 2017-07-20 06:00 | HP ---
CHIEF COMPLAINT: Chest pain with deep inspiration. HISTORY OF PRESENT ILLNESS: Mr. Carlos Martinez is a 26-year-old male came in [facility] Emergency Room, stating "I don't feel well with complaint of cough and chest pain with deep inspiration." The patient was recently seen in the ED for DKA, but left AMA. The patient denies fever, chills, vomiting, diarrhea, shortness of breath or any other complaints. I saw the patient in his room. He was sleepy, arousable, but still complaining about chest pain with inspiration. PAST MEDICAL HISTORY: Bipolar, coronary artery disease, depression, diabetes, schizophrenia. PAST SURGICAL HISTORY: Refused. FAMILY HISTORY: Father and mother, noncontributory. SOCIAL HISTORY: Smoking, no. Alcohol abuse, no. Drug abuse, yes. REVIEW OF SYSTEMS: The patient is seen and examined on the bedside in his room, looking comfortable. No nausea, vomiting, or diarrhea. No hematuria. No hematochezia. No swelling of the legs. ALLERGIES: THE PATIENT IS NOT ALLERGIC TO ANY MEDICATION. PHYSICAL EXAMINATION: VITAL SIGNS: Temperature 98.1, pulse 91, blood pressure 112/71, respiratory rate 18. HEENT: Head: Normocephalic, atraumatic. Eyes: PERRLA. Extraocular muscles intact. Conjunctivae clear. Nose patent. Mucous membrane moist. NECK: Supple. No carotid bruits or thyromegaly. CHEST: Bilaterally symmetrical. HEART: S1 and S2 positive. LUNGS: Clear to auscultation. ABDOMEN: Soft. Bowel sounds positive. No organomegaly. EXTREMITIES: No edema, no cyanosis. NEUROLOGICAL: The patient is awake and alert, moving all four extremities. No focal deficits. MEDICATIONS GIVEN: Trazodone, hydromorphone, MiraLax, insulin,Tylenol. LABORATORY DATA: White blood cells 7.5, hemoglobin 14.5, hematocrit 44.8, platelets of 231. Sodium 135, potassium 4.7, BUN 9, creatinine 0.6, glucose 220. ASSESSMENT AND PLAN: Mr. Carlos Martinez is a 26-year-old male with anion gap of 25, insulin-dependent diabetes mellitus uncontrolled, hypocalcemia, glucosuria, ketonuria, cocaine is positive in his system, cannabinoid is positive in his system, admitted for chest pain. Psych consult called with Dr. Autumn Lozano. He saw the patient. The patient is signed by Dr. Efrain Troy, air support operations operator. The patient was in Emergency Room couple of days ago for diabetic ketoacidosis, signed against medical advice. Agreed with GI documentation. His recent hemoglobin A1c is 13. He admitted that he recently used cocaine and marijuana. He had recent EGD from [facility] six months ago, which was reportedly normal as per patient. Patient started on liquid diet, antiemetics, continue PPI. We will call health education coordinator listed. Appreciating Dr. Efrain Troy's input. We will follow up. Hillary Keller MD MTDD
[2017-07-20] MEDS: Dextrose 5%/0.9% NS 1,000 ML IV SCH ×3 (08:00→20:30)
[2017-07-20 08:33] LABS: ALB/GLOB RATIO 1.6 (1.0-2.1); ALKALINE PHOSPHATASE 75 U/L (38-126); ALT/SGPT 23 U/L (21-72); AST/SGOT 13 U/L (17-59); BLOOD UREA NITROGEN 7 mg/dL (9-20); CALCIUM 8.2 mg/dl (8.6-10.4); CARBON DIOXIDE 12 mmol/L (22-30); CHLORIDE 100 mmol/L (98-107); GFR AFRICAN-AMERICAN > 60; GLUCOSE,RANDOM 366 mg/dL (75-110); POTASSIUM 4.4 mmol/L (3.6-5.2); SODIUM 133 mmol/L (132-148); TOTAL PROTEIN 6.5 g/dL (6.3-8.3)
[2017-07-20] MEDS: (Novolin R) Insulin Human Regular 100 units/ml vial SC SCH ×4 (09:21→21:29)
[2017-07-20] MEDS: POLYETHYLENE GLYCOL 3350 17 GM/Dose PACKET PO SCH (09:49)
[2017-07-20] MEDS ORDERED: Lactated Ringer's 500 ML IV ONE (12:29)
[2017-07-20] MEDS ORDERED: Propofol 10 mg/ml Inj (20 ML) ONE (12:30)
--- NOTE | 2017-07-20 13:24 | CP.PCM.PN ---
<Jose F Hickey - Last Filed: 07/20/17 15:04> Subjective - Date & Time of Evaluation Date of Evaluation: 07/20/17 Time of Evaluation: 10:30 - Subjective Subjective: Patient seen and examined at bedside. Patient states that abdominal and chest pain are both still present. Denies palpitations, headache, shortness of breath , fever, chills. Patient will upper endoscopy done this afternoon as well as echocardiogram. Will have regular exercise stress test in morning. Objective - Vital Signs/Intake and Output Vital Signs (last 24 hours): Temp Pulse Resp BP Pulse Ox 97.7 F 82 15 128/92 H 99 07/20/17 12:50 07/20/17 13:05 07/20/17 13:05 07/20/17 13:05 07/20/17 13:05 Intake and Output: 07/20/17 07/20/17 06:59 18:59 Output Total 300 Balance -300 - Medications Medications: Current Medications Acetaminophen (Tylenol 325mg Tab) 650 mg PO TID PRN PRN Reason: Pain, moderate (4-7) Last Admin: 07/19/17 02:23 Dose: 650 mg Buspirone HCl (Buspar) 10 mg PO BID PRN PRN Reason: Anxiety Cyproheptadine HCl (Periactin) 4 mg PO DAILY [facility] Last Admin: 07/20/17 09:49 Dose: Not Given Escitalopram Oxalate (Lexapro) 20 mg PO DAILY [facility] Last Admin: 07/20/17 09:49 Dose: Not Given Hydromorphone HCl (Dilaudid) 0.25 mg IVP Q8 PRN PRN Reason: Pain, severe (8-10) Last Admin: 07/20/17 02:39 Dose: 0.25 mg Hydroxyzine HCl (Atarax) 25 mg PO Q6 PRN PRN Reason: Agitation Last Admin: 07/20/17 07:14 Dose: 25 mg Dextrose/Sodium Chloride (Dextrose 5%/0.9% Ns 1000 Ml) 1,000 mls @ 100 mls/hr IV .Q10H [facility] Last Admin: 07/20/17 08:00 Dose: 100 mls/hr Insulin Human Regular (Novolin R) 0 unit SC ACHS [facility] PRN Reason: Protocol Last Admin: 07/20/17 09:21 Dose: 4 unit Pantoprazole Sodium (Protonix Ec Tab) 40 mg PO BID [facility] Polyethylene Glycol (Miralax) 17 gm PO DAILY [facility] Last Admin: 07/20/17 09:49 Dose: Not Given Quetiapine Fumarate (Seroquel) 100 mg PO HS [facility] Last Admin: 07/19/17 22:08 Dose: Not Given Sucralfate (Carafate Oral Susp) 1 gm PO QID [facility] Trazodone HCl (Desyrel) 50 mg PO HS PRN PRN Reason: Insomnia Last Admin: 07/19/17 02:24 Dose: 50 mg - Labs Labs: 07/19/17 08:14 07/20/17 07:14 - Constitutional Appears: Non-toxic, In Acute Distress - Head Exam Head Exam: ATRAUMATIC, NORMAL INSPECTION, NORMOCEPHALIC - Eye Exam Eye Exam: EOMI, Normal appearance - ENT Exam ENT Exam: Mucous Membranes Moist, Normal Exam - Respiratory Exam Respiratory Exam: Clear to Ausculation Bilateral, NORMAL BREATHING PATTERN - Cardiovascular Exam Cardiovascular Exam: +S1, +S2. absent: Clicks, Gallop - GI/Abdominal Exam GI & Abdominal Exam: Soft, Normal Bowel Sounds - Back Exam Back Exam: NORMAL INSPECTION - Neurological Exam Neurological Exam: Alert, Awake, Oriented x3 - Psychiatric Exam Psychiatric exam: Normal Affect, Normal Mood - Skin Skin Exam: Normal Color, Warm Assessment and Plan - Assessment and Plan (Free Text) Assessment: 26 year old male with a past medical history of IDDM, diabetic neuropathy, Chrohn's disease, bipolar disorder, schizophrenia, anxiety disorder and depression who presented to [facility] with complaints of chest pain. Plan: 1. Chest pain r/o coronary vasospam due to cocaine consumption vs medications for schizophrenia and bipolar disorder vs costochondritis -EKG abnormalities; when comparing EKGs from past admissions to current admissions there are prominent ST changes which need further evaluation and work up; stress test will be done for further evaluation -Troponins negative x2 -Echo done; results pending -Patient states he not active. Will determine how much patient can tolerate exercise with a regular exercise stress test; 09/21/16 at 7:00 a.m. -Reciprocal chest pain upon palpation of chest wall <Terrell Dickerson - Last Filed: 07/21/17 00:32> Objective - Vital Signs/Intake and Output Vital Signs (last 24 hours): Temp Pulse Resp BP Pulse Ox 98.3 F 94 H 20 109/61 99 07/20/17 23:20 07/20/17 23:20 07/20/17 23:20 07/20/17 23:20 07/20/17 23:20 Intake and Output: 07/20/17 07/21/17 18:59 06:59 Intake Total 400 Balance 400 - Medications Medications: Current Medications Acetaminophen (Tylenol 325mg Tab) 650 mg PO TID PRN PRN Reason: Pain, moderate (4-7) Last Admin: 07/19/17 02:23 Dose: 650 mg Buspirone HCl (Buspar) 10 mg PO BID PRN PRN Reason: Anxiety Cyproheptadine HCl (Periactin) 4 mg PO DAILY [facility] Last Admin: 07/20/17 09:49 Dose: Not Given Escitalopram Oxalate (Lexapro) 20 mg PO DAILY [facility] Last Admin: 07/20/17 09:49 Dose: Not Given Hydromorphone HCl (Dilaudid) 0.25 mg IVP Q8 PRN PRN Reason: Pain, severe (8-10) Last Admin: 07/20/17 23:46 Dose: 0.25 mg Hydroxyzine HCl (Atarax) 25 mg PO Q6 PRN PRN Reason: Agitation Last Admin: 07/20/17 07:14 Dose: 25 mg Dextrose/Sodium Chloride (Dextrose 5%/0.9% Ns 1000 Ml) 1,000 mls @ 150 mls/hr IV .Q6H40M [facility] Last Admin: 07/20/17 20:30 Dose: 150 mls/hr Insulin Glargine (Lantus) 10 unit SC [facility] Last Admin: 07/20/17 21:40 Dose: 10 units Insulin Human Regular (Novolin R) 0 unit SC Q6 [facility] PRN Reason: Protocol Last Admin: 07/21/17 00:22 Dose: Not Given Pantoprazole Sodium (Protonix Ec Tab) 40 mg PO BID [facility] Polyethylene Glycol (Miralax) 17 gm PO DAILY [facility] Last Admin: 07/20/17 09:49 Dose: Not Given Quetiapine Fumarate (Seroquel) 100 mg PO HS [facility] Last Admin: 07/20/17 22:04 Dose: Not Given Sucralfate (Carafate Oral Susp) 1 gm PO QID [facility] Last Admin: 07/20/17 21:40 Dose: 1 gm Trazodone HCl (Desyrel) 50 mg PO HS PRN PRN Reason: Insomnia Last Admin: 07/19/17 02:24 Dose: 50 mg - Labs Labs: 07/19/17 08:14 07/20/17 20:57 Attending/Attestation - Attestation I have personally seen and examined this patient.: Yes I have fully participated in the care of the patient.: Yes I have reviewed all pertinent clinical information, including history, physical exam and plan: Yes
[2017-07-20] MEDS: Sucralfate 1 gm/10 ml Oral Susp UD PO SCH ×3 (15:06→21:40)
--- NOTE | 2017-07-20 20:24 | CP.PCM.CON ---
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) - RENAL Hx Chronic Kidney Disease: No - ENDOCRINE/METABOLIC Hx Endocrine Disorders: Yes Hx Diabetes Mellitus Type 1: Yes (insulin dependent) - HEMATOLOGICAL/ONCOLOGICAL Hx Human Immunodeficiency Virus (HIV): No - INTEGUMENTARY Hx Dermatological Problems: No - MUSCULOSKELETAL/RHEUMATOLOGICAL Hx Falls: No - GASTROINTESTINAL Hx Crohn's Disease: Yes - GENITOURINARY/GYNECOLOGICAL Hx Genitourinary Disorders: No - PSYCHIATRIC Hx Substance Use: Yes (MARIJUANA) - SURGICAL HISTORY Hx Surgeries: Yes Other/Comment: wired Jaw - ANESTHESIA Hx Anesthesia: Yes Hx Anesthesia Reactions: No Hx Malignant Hyperthermia: No Meds Allergies/Adverse Reactions: Allergies Allergy/AdvReac Type Severity Reaction Status Date / Time No Known Allergies Allergy Verified 02/07/17 22:42 - Medications Medications: Current Medications Acetaminophen (Tylenol 325mg Tab) 650 mg PO TID PRN PRN Reason: Pain, moderate (4-7) Last Admin: 07/19/17 02:23 Dose: 650 mg Buspirone HCl (Buspar) 10 mg PO BID PRN PRN Reason: Anxiety Cyproheptadine HCl (Periactin) 4 mg PO DAILY [facility] Last Admin: 07/20/17 09:49 Dose: Not Given Escitalopram Oxalate (Lexapro) 20 mg PO DAILY [facility] Last Admin: 07/20/17 09:49 Dose: Not Given Hydromorphone HCl (Dilaudid) 0.25 mg IVP Q8 PRN PRN Reason: Pain, severe (8-10) Last Admin: 07/20/17 15:41 Dose: 0.25 mg Hydroxyzine HCl (Atarax) 25 mg PO Q6 PRN PRN Reason: Agitation Last Admin: 07/20/17 07:14 Dose: 25 mg Dextrose/Sodium Chloride (Dextrose 5%/0.9% Ns 1000 Ml) 1,000 mls @ 150 mls/hr IV .Q6H40M [facility] Insulin Glargine (Lantus) 10 unit SC HS [facility] Insulin Human Regular (Novolin R) 0 unit SC ACHS [facility] PRN Reason: Protocol Last Admin: 07/20/17 18:01 Dose: 3 unit Pantoprazole Sodium (Protonix Ec Tab) 40 mg PO BID [facility] Polyethylene Glycol (Miralax) 17 gm PO DAILY [facility] Last Admin: 07/20/17 09:49 Dose: Not Given Quetiapine Fumarate (Seroquel) 100 mg PO HS [facility] Last Admin: 07/19/17 22:08 Dose: Not Given Sucralfate (Carafate Oral Susp) 1 gm PO QID [facility] Last Admin: 07/20/17 18:00 Dose: 1 gm Trazodone HCl (Desyrel) 50 mg PO HS PRN PRN Reason: Insomnia Last Admin: 07/19/17 02:24 Dose: 50 mg Results - Vital Signs Recent Vital Signs: Last Vital Signs Temp 98.5 F 07/20/17 16:00 Pulse 99 H 07/20/17 16:36 Resp 18 07/20/17 16:00 BP 108/68 07/20/17 16:00 Pulse Ox 100 07/20/17 16:00 - Labs Result Diagrams: 07/19/17 08:14 07/20/17 07:14 Labs: Laboratory Results - last 24 hr 07/19/17 07/20/17 07/20/17 20:59 06:26 07:14 Sodium 133 Potassium 4.4 Chloride 100 Carbon Dioxide 12 L Anion Gap 26 H BUN 7 L Creatinine 0.7 L Est GFR ( Amer) > 60 Est GFR (Non-Af Amer) > 60 POC Glucose (mg/dL) 194 H 321 H Random Glucose 366 H Hemoglobin A1c Calcium 8.2 L Total Bilirubin 1.0 AST 13 L ALT 23 Alkaline Phosphatase 75 Total Protein 6.5 Albumin 4.0 Globulin 2.5 Albumin/Globulin Ratio 1.6 TSH 3rd Generation 0.20 L 07/20/17 07/20/17 07/20/17 07:14 11:17 16:32 Sodium Potassium Chloride Carbon Dioxide Anion Gap BUN Creatinine Est GFR ( Amer) Est GFR (Non-Af Amer) POC Glucose (mg/dL) 260 H 272 H Random Glucose Hemoglobin A1c 13.1 H Calcium Total Bilirubin AST ALT Alkaline Phosphatase Total Protein Albumin Globulin Albumin/Globulin Ratio TSH 3rd Generation Assessment & Plan (1) DKA (diabetic ketoacidoses) Assessment and Plan: Endocrine consult reason for consult: uncontrolled diabetes Source : chart review Mr. Gonzalez is 26 y/o admitted for chest pain as per chart review , pt seen @ echo s/p EGD for nausea s/p one episode of coffee ground vomiting , found sleepy , unco-operative with machine tool technology instructor asking him to move to the side since he is nauseous, with DM type 1 , comlicated with neuropathy , recurrent admissions for DKA was just left few days ago , outpatient on humalog 20 units tid , endocrine contacted yesterday , orderes for IV d5 NS @ 100 cc/h & change coverage to regular insulin tid & hs . as per nurse now @ 8:30 pm , pt still on clear liquid & looks better & co- operative blood glucose log : NO hypoglycemia Allergy NKDA Past medical history : Chron's disease , Past surgical history : not documented Psychiatry history : (+) psychiatry dosorder Social history : active smoking , active illicit drug use , ?ETOH use Family history : DM on father side ROS: Constitutional: no fever ,tiredness/weakness .HEENT: no earache, change in voice .Respiratory: no cough, sob . CVS :(+) chest pain, no palpitations . Abdomen : (+) abdominal pain, (+) nausea /vomiting , no change bowel movement . AUDIT CLERK : denies light-headedness, dizziness. Extremities : no edema , no tremors . Skin: no itching, no rash Physical exam Well developed AAO x1 , sleepy ( s/p EGD) ,NAD VSS HEENT: norm cephalic, atraumatic , no lid lag , no exophthalmos NECK: supple, no palpable lymphadenopathy THYROID: no palpable thyromegaly , not tender CHEST: fair air entry, bilateral, CVS: S1,S2 ABDOMEN: bowel sound present, benign, obese, no wide purple striae , no bruises EXTREMITIES: no edema, clubbing or cyanosis, no palpable hand tremors Skin : acanthosis nigricans lab: tsh 0.20, a1c 13.1 , urine drug screen : (+) cocaine (+) cannabinoids , HCO 12 , AG 26 Assessment uncontrolled type 1/DKA low TSH hypocalcemia coffee ground vomiting chest pain plan start levemir 10 units @ hs , first dose today continue Novoloin R low dose coverage, no 3 am coverage increase IVF D5 NS @ 150 cc/h obtain thyroid functions & antibodies & vitamin D 25-oh level repeat BMP stat ,t/c ICU evaluation if still with high AG plan communicated with nurse in charge who read back the instructions correctly Thank you for allowing me to participate in the care of the patient, we will follow with you. Status: Acute (2) Diabetic neuropathy Status: Acute (3) Chest pain Status: Acute (4) Low TSH level Status: Acute (5) Hypocalcemia Status: Acute - Date & Time Date: 07/20/17 Time: 02:00
[2017-07-20 21:25] LABS: BLOOD UREA NITROGEN 6 mg/dL (9-20); CALCIUM 8.5 mg/dl (8.6-10.4); CARBON DIOXIDE 21 mmol/L (22-30); CHLORIDE 102 mmol/L (98-107); GFR AFRICAN-AMERICAN > 60; GLUCOSE,RANDOM 271 mg/dL (75-110); POTASSIUM 3.6 mmol/L (3.6-5.2); SODIUM 135 mmol/L (132-148)
[2017-07-20] MEDS: (Lantus) Insulin Glargine, Recombinant SC SCH (21:40)
[2017-07-20 23:20] VITALS: RESP 20
[2017-07-21] MEDS: (Novolin R) Insulin Human Regular 100 units/ml vial SC SCH ×6 (00:22→21:28)
[2017-07-21] MEDS: Pantoprazole 40 mg EC Tab PO SCH ×2 (06:36→17:03)
[2017-07-21] MEDS: Dextrose 5%/0.9% NS 1,000 ML IV SCH ×4 (07:00→22:39)
--- NOTE | 2017-07-21 07:16 | CP.PCM.PN ---
Subjective - Date & Time of Evaluation Date of Evaluation: 07/21/17 Time of Evaluation: 06:40 - Subjective Subjective: Patient seen and examined at bedside in no acute distress. Patient states he wasn't able to sleep well throughout the night and was tired. Admits to chest pain improving. Set for stress test this a.m. Denies shortness of breath, fever , chills, headache. Objective - Vital Signs/Intake and Output Vital Signs (last 24 hours): Temp Pulse Resp BP Pulse Ox 97.6 F 71 20 98/62 L 99 07/21/17 04:00 07/21/17 04:01 07/21/17 04:00 07/21/17 04:00 07/21/17 04:00 - Medications Medications: Current Medications Acetaminophen (Tylenol 325mg Tab) 650 mg PO TID PRN PRN Reason: Pain, moderate (4-7) Last Admin: 07/19/17 02:23 Dose: 650 mg Buspirone HCl (Buspar) 10 mg PO BID PRN PRN Reason: Anxiety Cyproheptadine HCl (Periactin) 4 mg PO DAILY [facility] Last Admin: 07/20/17 09:49 Dose: Not Given Escitalopram Oxalate (Lexapro) 20 mg PO DAILY [facility] Last Admin: 07/20/17 09:49 Dose: Not Given Hydromorphone HCl (Dilaudid) 0.25 mg IVP Q8 PRN PRN Reason: Pain, severe (8-10) Last Admin: 07/20/17 23:46 Dose: 0.25 mg Hydroxyzine HCl (Atarax) 25 mg PO Q6 PRN PRN Reason: Agitation Last Admin: 07/20/17 07:14 Dose: 25 mg Dextrose/Sodium Chloride (Dextrose 5%/0.9% Ns 1000 Ml) 1,000 mls @ 150 mls/hr IV .Q6H40M [facility] Last Admin: 07/21/17 07:00 Dose: 150 mls/hr Insulin Glargine (Lantus) 10 unit SC HS [facility] Last Admin: 07/20/17 21:40 Dose: 10 units Insulin Human Regular (Novolin R) 0 unit SC Q6 [facility] PRN Reason: Protocol Last Admin: 07/21/17 07:10 Dose: Not Given Pantoprazole Sodium (Protonix Ec Tab) 40 mg PO BID [facility] Last Admin: 07/21/17 06:36 Dose: Not Given Polyethylene Glycol (Miralax) 17 gm PO DAILY [facility] Last Admin: 07/20/17 09:49 Dose: Not Given Quetiapine Fumarate (Seroquel) 100 mg PO HS [facility] Last Admin: 07/20/17 22:04 Dose: Not Given Sucralfate (Carafate Oral Susp) 1 gm PO QID [facility] Last Admin: 07/20/17 21:40 Dose: 1 gm Trazodone HCl (Desyrel) 50 mg PO HS PRN PRN Reason: Insomnia Last Admin: 07/19/17 02:24 Dose: 50 mg - Labs Labs: 07/19/17 08:14 07/20/17 20:57 - Head Exam Head Exam: ATRAUMATIC, NORMAL INSPECTION, NORMOCEPHALIC - ENT Exam ENT Exam: Mucous Membranes Moist, Normal Exam - Neck Exam Neck Exam: Normal Inspection - Respiratory Exam Respiratory Exam: Clear to Ausculation Bilateral, NORMAL BREATHING PATTERN. absent: Wheezes - Cardiovascular Exam Cardiovascular Exam: REGULAR RHYTHM, +S1, +S2 - GI/Abdominal Exam GI & Abdominal Exam: Soft, Hypoactive Bowel Sounds - Neurological Exam Neurological Exam: Alert, Awake, Oriented x3 - Skin Skin Exam: Normal Color, Warm Assessment and Plan - Assessment and Plan (Free Text) Assessment: 26 year old male with a past medical history of IDDM, diabetic neuropathy, Chrohn's disease, bipolar disorder, schizophrenia, anxiety disorder and depression who presented to [facility] with complaints of chest pain. Plan: 1. Chest pain r/o coronary vasospam due to cocaine consumption vs. medications for schizophrenia and bipolar disorder vs. costochondritis -EKG abnormalities; when comparing EKGs from past admissions to current admissions there are prominent ST changes which need further evaluation and work up; stress test will be done for further evaluation -Troponins negative x2 -Echo done; results pending -Exercise stress test this a.m. to access patient's functional capacity; patient was unable to tolerate exercise stress test. Patient has poor functional capacity due to musculoskeletal pathology; unable to ambulate on treadmill. Chest pain is costochondritic in nature not cardiac.
--- NOTE | 2017-07-21 08:07 | CP.PCM.PN ---
<Mervin Hernandez - Last Filed: 07/21/17 10:00> Subjective - Date & Time of Evaluation Date of Evaluation: 07/21/17 Time of Evaluation: 07:05 - Subjective Subjective: Mervin Hernandez D.O. PGY-2, GI Progress Note 26 year old male with a PMH of uncontrolled type 1 DM, schizophrenia and illicit drug use who presented for abdominal pain with nausea and vomiting and had one episode of coffee ground emesis. Patient was seen and examined at bedside. Patient's only complaint at this time is that he was unable to get a good nights rest and he is somewhat upset. Patient states that he did well with his liquid diet yesterday and cites no more nausea, vomiting, and particularly no repeat episodes of coffee ground emesis. Patient had a small bowel movement yesterday. No acute events per nursing staff. Objective - Vital Signs/Intake and Output Vital Signs (last 24 hours): Temp Pulse Resp BP Pulse Ox 97.6 F 71 20 98/62 L 99 07/21/17 04:00 07/21/17 04:01 07/21/17 04:00 07/21/17 04:00 07/21/17 04:00 - Medications Medications: Current Medications Acetaminophen (Tylenol 325mg Tab) 650 mg PO TID PRN PRN Reason: Pain, moderate (4-7) Last Admin: 07/19/17 02:23 Dose: 650 mg Buspirone HCl (Buspar) 10 mg PO BID PRN PRN Reason: Anxiety Cyproheptadine HCl (Periactin) 4 mg PO DAILY [facility] Last Admin: 07/20/17 09:49 Dose: Not Given Escitalopram Oxalate (Lexapro) 20 mg PO DAILY [facility] Last Admin: 07/20/17 09:49 Dose: Not Given Hydromorphone HCl (Dilaudid) 0.25 mg IVP Q8 PRN PRN Reason: Pain, severe (8-10) Last Admin: 07/20/17 23:46 Dose: 0.25 mg Hydroxyzine HCl (Atarax) 25 mg PO Q6 PRN PRN Reason: Agitation Last Admin: 07/20/17 07:14 Dose: 25 mg Dextrose/Sodium Chloride (Dextrose 5%/0.9% Ns 1000 Ml) 1,000 mls @ 150 mls/hr IV .Q6H40M [facility] Last Admin: 07/21/17 07:00 Dose: 150 mls/hr Insulin Glargine (Lantus) 10 unit SC HS [facility] Last Admin: 07/20/17 21:40 Dose: 10 units Insulin Human Regular (Novolin R) 0 unit SC Q6 [facility] PRN Reason: Protocol Last Admin: 07/21/17 07:10 Dose: Not Given Pantoprazole Sodium (Protonix Ec Tab) 40 mg PO BID [facility] Last Admin: 07/21/17 06:36 Dose: Not Given Polyethylene Glycol (Miralax) 17 gm PO DAILY [facility] Last Admin: 07/20/17 09:49 Dose: Not Given Quetiapine Fumarate (Seroquel) 100 mg PO HS [facility] Last Admin: 07/20/17 22:04 Dose: Not Given Sucralfate (Carafate Oral Susp) 1 gm PO QID [facility] Last Admin: 07/20/17 21:40 Dose: 1 gm Trazodone HCl (Desyrel) 50 mg PO HS PRN PRN Reason: Insomnia Last Admin: 07/19/17 02:24 Dose: 50 mg - Labs Labs: 07/19/17 08:14 07/20/17 20:57 - Constitutional Appears: Non-toxic, No Acute Distress, Cachectic - Eye Exam Eye Exam: EOMI - ENT Exam ENT Exam: Mucous Membranes Moist, Normal Oropharynx - Neck Exam Neck Exam: Normal Inspection - Respiratory Exam Respiratory Exam: Clear to Ausculation Bilateral - Cardiovascular Exam Cardiovascular Exam: RRR, +S1, +S2 - GI/Abdominal Exam GI & Abdominal Exam: Soft, Tenderness (mild epigastric), Normal Bowel Sounds. absent: Distended, Firm, Guarding - Extremities Exam Extremities Exam: absent: Calf Tenderness, Tenderness - Neurological Exam Neurological Exam: Alert, Awake, Oriented x3 - Psychiatric Exam Psychiatric exam: Normal Affect, Normal Mood - Skin Skin Exam: Dry, Warm Assessment and Plan - Assessment and Plan (Free Text) Assessment: 26 year old male with a PMH of uncontrolled DM, schizophrenia and illicit drug use who presented for abdominal pain with nausea and vomiting and had one episode of coffee ground emesis Plan: Abdominal pain, nausea and vomiting in the setting of uncontrolled type 1 DM as well as frequent marijuana use Schizophrenia Polysubstance abuse LA grade C erosive esophagitis Gastritis Duodenitis S/p endoscopic evaluation on 07/20 with findings as above Biopsies path pending Tolerating liquid diet, advance as tolerated Continue with PPI BID Continue with sucralfate Continue bowel regimen with miralax Minimize opioid medications as these may aggravate/cause nausea Recommended cocaine and marijuana use cessation as these may be exacerbating his symptoms Will need to follow up as outpatient for biopsy results Discussed with fellow and attending physician Thank you for the pleasure of participating in the care of this patient <Elidia Duran MD - Last Filed: 07/21/17 12:56> Objective - Vital Signs/Intake and Output Vital Signs (last 24 hours): Temp Pulse Resp BP Pulse Ox 98.1 F 86 20 110/72 94 L 07/21/17 08:30 07/21/17 08:30 07/21/17 08:30 07/21/17 08:30 07/21/17 08:30 - Medications Medications: Current Medications Acetaminophen (Tylenol 325mg Tab) 650 mg PO TID PRN PRN Reason: Pain, moderate (4-7) Last Admin: 07/19/17 02:23 Dose: 650 mg Buspirone HCl (Buspar) 10 mg PO BID PRN PRN Reason: Anxiety Cyproheptadine HCl (Periactin) 4 mg PO DAILY [facility] Last Admin: 07/21/17 11:00 Dose: 4 mg Escitalopram Oxalate (Lexapro) 20 mg PO DAILY [facility] Last Admin: 07/20/17 09:49 Dose: Not Given Hydromorphone HCl (Dilaudid) 0.25 mg IVP Q8 PRN PRN Reason: Pain, severe (8-10) Last Admin: 07/21/17 09:03 Dose: 0.25 mg Hydroxyzine HCl (Atarax) 25 mg PO Q6 PRN PRN Reason: Agitation Last Admin: 07/20/17 07:14 Dose: 25 mg Dextrose/Sodium Chloride (Dextrose 5%/0.9% Ns 1000 Ml) 1,000 mls @ 150 mls/hr IV .Q6H40M [facility] Last Admin: 07/21/17 07:00 Dose: 150 mls/hr Insulin Glargine (Lantus) 10 unit SC HS [facility] Last Admin: 07/20/17 21:40 Dose: 10 units Insulin Human Regular (Novolin R) 0 unit SC ACHS [facility] PRN Reason: Protocol Last Admin: 07/21/17 09:04 Dose: 4 unit Pantoprazole Sodium (Protonix Ec Tab) 40 mg PO BID [facility] Last Admin: 07/21/17 06:36 Dose: Not Given Polyethylene Glycol (Miralax) 17 gm PO DAILY [facility] Last Admin: 07/21/17 11:00 Dose: Not Given Quetiapine Fumarate (Seroquel) 100 mg PO HS [facility] Last Admin: 07/20/17 22:04 Dose: Not Given Sucralfate (Carafate Oral Susp) 1 gm PO QID [facility] Last Admin: 07/21/17 11:00 Dose: 1 gm Trazodone HCl (Desyrel) 50 mg PO HS PRN PRN Reason: Insomnia Last Admin: 07/19/17 02:24 Dose: 50 mg - Labs Labs: 07/19/17 08:14 07/20/17 20:57 Attending/Attestation - Attestation I have personally seen and examined this patient.: Yes I have fully participated in the care of the patient.: Yes I have reviewed all pertinent clinical information, including history, physical exam and plan: Yes Notes (Text): 07/21/17 12:43 I have seen and examined patient with GI fellow and medical manager. In brief , this is a 26 year old male with history of IDDM diagnosed at age 8, poorly controlled with recent HbA1C >13, schizophrenia, polysubstance abuse with cocaine and cannabis, who presents to hospital with complaint of abdominal pain , nausea, and vomiting which has been present for the past one week. During this time period he describes profound nausea with generalized abdominal discomfort and multiple episodes of non-bloody emesis. His last episode of vomiting was two days ago. His HbA1 C is 13. Above symptoms likely related to poorly controlled DM. Small low fiber and low fat meal. Anti emetic as needed. Continue PPI in am. Strict glycemic control. Outpatient follow up. substance abuse councelling. Will sign off now. Last EGD/ colonoscopy 6 months ago. Thank you for letting us participate in the care of your patient
[2017-07-21] MEDS: HYDROmorphone 0.5 mg/0.5 ml ISec IVP PRN ×2 (09:03→17:03)
[2017-07-21 09:16] LABS: FT3 1.9 pg/mL (2.77-5.27); T4 8.46 ug/dL (5.5-11.0)
[2017-07-21 09:44] LABS: THYROID STIMULATING HORMONE 0.46 mIU/L (0.46-4.68)
[2017-07-21] MEDS: Sucralfate 1 gm/10 ml Oral Susp UD PO SCH ×4 (11:00→22:19)
[2017-07-21] MEDS: POLYETHYLENE GLYCOL 3350 17 GM/Dose PACKET PO SCH (11:00)
--- NOTE | 2017-07-21 11:56 | CARD ---
APPROVED REPORT EKG Measurement Heart [id number] <Conclusion> Sinus rhythm with short MS Biatrial enlargement T wave abnormality, consider inferior ischemia Abnormal ECG
--- NOTE | 2017-07-21 12:50 | PN ---
DATE: PROGRESS NOTE SUBJECTIVE: The patient is a 26-year-old male. The patient is seen and examined on the bedside. Looking comfortable. No nausea, vomiting, or diarrhea. No hematuria. No hematochezia. No swelling of the legs. No chest pain. No palpitations. No headache. No dizziness. PHYSICAL EXAMINATION VITAL SIGNS: Temperature 98.3, pulse 94, blood pressure 109/61, respiratory rate 20. HEENT: Head: Normocephalic, atraumatic. Eyes: PERRLA. Extraocular muscles intact. Conjunctivae clear. Nose patent. Mucous membrane moist. NECK: Supple. No carotid bruits. No JVD or thyromegaly. CHEST: Bilaterally symmetrical. HEART: S1 and S2 positive. LUNGS: Clear to auscultation. ABDOMEN: Soft. Bowel sounds present. No organomegaly. EXTREMITIES: No edema. No cyanosis. NEUROLOGICAL: The patient is awake, alert. Moving all 4 extremities. No focal deficit. MEDICATIONS: Atarax, Carafate, trazodone, dextrose, Dilaudid, Lantus, Lexapro, MiraLax, Novolin, cyproheptadine, Protonix, Tylenol, Seroquel. LABORATORY DATA: White blood cells 7.5, hemoglobin 14.5, hematocrit 44.8, platelets of 231. Sodium 135, potassium 3.6, BUN 6, creatinine 0.6, glucose 272. ASSESSMENT AND PLAN: Carlos Martinez is a 26-year-old male with hyperglycemia, uncontrolled diabetes mellitus, hemoglobin A1c 13.1. We called Endocrinology consult with Dr. Fam Moon. Hypocalcemia, proteinuria, ketonuria; the patient's system has cocaine and cannabinoid positive, history of drug abuse. THE PATIENT IS NOT ALLERGIC TO ANY MEDICATION. History of Crohn's disease, psych disorder, hypocalcemia, history of coffee-ground vomiting, chest pain. Dr. Fam Moon started on Levemir, Novolin R, intravenous fluid, repeat thyroid function test, vitamin D25 level. Patient with diabetic neuropathy. Seen by Dr. Autumn Lozano. Went for endoscopy with Dr. Efrain Troy, showed duodenitis, esophagitis, gastritis severe, proton pump inhibitor b.i.d. Meanwhile continue current treatment. Repeat labs. Hillary Keller MD LEANDR[facility]
[2017-07-21] MEDS: (Lantus) Insulin Glargine, Recombinant SC SCH (22:15)
--- NOTE | 2017-07-21 23:17 | CP.PCM.PN ---
Subjective - Date & Time of Evaluation Date of Evaluation: 07/21/17 Time of Evaluation: 10:00 - Subjective Subjective: uncontrolled DM Objective - Vital Signs/Intake and Output Vital Signs (last 24 hours): Temp Pulse Resp BP Pulse Ox 98.3 F 85 20 121/81 100 07/21/17 15:35 07/21/17 15:35 07/21/17 15:35 07/21/17 15:35 07/21/17 15:35 Intake and Output: 07/21/17 07/22/17 18:59 06:59 Intake Total 2079 Balance 2079 - Medications Medications: Current Medications Acetaminophen (Tylenol 325mg Tab) 650 mg PO TID PRN PRN Reason: Pain, moderate (4-7) Last Admin: 07/19/17 02:23 Dose: 650 mg Buspirone HCl (Buspar) 10 mg PO BID PRN PRN Reason: Anxiety Cyproheptadine HCl (Periactin) 4 mg PO DAILY [facility] Last Admin: 07/21/17 11:00 Dose: 4 mg Escitalopram Oxalate (Lexapro) 20 mg PO DAILY [facility] Last Admin: 07/21/17 13:14 Dose: 20 mg Hydromorphone HCl (Dilaudid) 0.25 mg IVP Q8 PRN PRN Reason: Pain, severe (8-10) Last Admin: 07/21/17 17:03 Dose: 0.25 mg Hydroxyzine HCl (Atarax) 25 mg PO Q6 PRN PRN Reason: Agitation Last Admin: 07/20/17 07:14 Dose: 25 mg Dextrose/Sodium Chloride (Dextrose 5%/0.9% Ns 1000 Ml) 1,000 mls @ 150 mls/hr IV .Q6H40M [facility] Last Admin: 07/21/17 22:39 Dose: 150 mls/hr Insulin Glargine (Lantus) 10 unit SC HS [facility]PL[facility] Last Admin: 07/21/17 22:15 Dose: 10 units Insulin Human Regular (Novolin R) 0 unit SC ACHS [facility]PLACED BY [facility] PRN Reason: Protocol Last Admin: 07/21/17 21:28 Dose: Not Given Pantoprazole Sodium (Protonix Ec Tab) 40 mg PO BID [facility] Last Admin: 07/21/17 17:03 Dose: 40 mg Polyethylene Glycol (Miralax) 17 gm PO DAILY [facility] Last Admin: 07/21/17 11:00 Dose: Not Given Quetiapine Fumarate (Seroquel) 100 mg PO HS [facility]AC[facility] BY [facility] Last Admin: 07/21/17 22:14 Dose: 100 mg Sucralfate (Carafate Oral Susp) 1 gm PO QID REPLACED BY [facility] Last Admin: 07/21/17 22:19 Dose: Not Given Trazodone HCl (Desyrel) 50 mg PO HS PRN PRN Reason: Insomnia Last Admin: 07/21/17 22:14 Dose: 50 mg - Labs Labs: 07/19/17 08:14 07/20/17 20:57 Assessment and Plan (1) DKA (diabetic ketoacidoses) Assessment & Plan: Assessment and Plan: Endocrine consult reason for consult: uncontrolled diabetes Source : chart review Mr. Gonzalez is 26 y/o admitted for chest pain as per chart review , pt seen @ echo s/p EGD for nausea s/p one episode of coffee ground vomiting , found sleepy , unco-operative with sales technician asking him to move to the side since he is nauseous, with DM type 1 , comlicated with neuropathy , recurrent admissions for DKA was just left few days ago , outpatient on humalog 20 units tid , endocrine contacted yesterday , orderes for IV d5 NS @ 100 cc/h & change coverage to regular insulin tid & hs . as per nurse now @ 8:30 pm , pt still on clear liquid & looks better & co- operative blood glucose log :200-300 no hypoglycemia , s/p cardiac cath today , did recieve insulin coverage , feels better however still c/o abdominal pain Allergy NKDA Past medical history : Chron's disease , Past surgical history : not documented Psychiatry history : (+) psychiatry dosorder Social history : active smoking , active illicit drug use , ?ETOH use Family history : DM on father side ROS: Constitutional: no fever ,tiredness/weakness .HEENT: no earache, change in voice .Respiratory: no cough, sob . CVS :(+) chest pain, no palpitations . Abdomen : (+) abdominal pain, (+) nausea /vomiting , no change bowel movement . 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 Extremities : no edema , no tremors . Skin: no itching, no rash Physical exam Well developed AAO x 3 ,NAD VSS HEENT: norm cephalic, atraumatic , no lid lag , no exophthalmos NECK: supple, no palpable lymphadenopathy THYROID: no palpable thyromegaly , not tender CHEST: fair air entry, bilateral, CVS: S1,S2 ABDOMEN: bowel sound present, benign, obese, no wide purple striae , no bruises EXTREMITIES: no edema, clubbing or cyanosis, no palpable hand tremors Skin : acanthosis nigricans lab: tsh 0.46, t30.78 , ft3 1.9 , ft4 1.35 , t4 8.46 , vitamin d < 12.8 , hco3 21 , AG 16 tsh 0.20, a1c 13.1 , urine drug screen : (+) cocaine (+) cannabinoids , HCO 12 , AG 26 Assessment uncontrolled type 1/DKA , on d5NS @ 150cc/h , on clear liquid diet acute euthyroid sick hypocalcemia /vitamin D deficiency coffee ground vomiting , still on clear liquid chest pain plan increase levemir 12 units @ hs continue Novoloin R low dose coverage, no 3 am coverage continue IVF D5 NS @ 150 cc/h start vitamin d 50,000 po weekly we will follow with you. Status: Acute (2) Diabetic neuropathy Status: Acute (3) Chest pain Status: Acute (4) Euthyroid sick syndrome Status: Acute (5) Vitamin D deficiency Status: Acute
[2017-07-21] MEDS ORDERED: (Lantus) Insulin Glargine, Recombinant SC SCH (23:20)
[2017-07-21] MEDS ORDERED: Ergocalciferol 50,000 Intl Units Cap PO SCH (23:30)
--- NOTE | 2017-07-22 05:56 | PN ---
DATE: 07/21/2017 SUBJECTIVE: The patient is a 26-year-old male. The patient was seen and examined on 07/21/2017, looking comfortable. Chest pain is getting better, went for stress test. According to the patient, he noted to have last night good sleep. No nausea, vomiting, or diarrhea. No fever. No chills. No hematuria or hematochezia. PHYSICAL EXAMINATION: VITAL SIGNS: Temperature 97.6, pulse is 71, respiratory rate 20, blood pressure 98/52, pulse oximetry 99%. HEENT: Head normocephalic, atraumatic. Eyes: PERRLA. Extraocular muscles intact. Conjunctivae are clear. Nose patent. NECK: Supple. No carotid bruits. No JVD or thyromegaly. CHEST: Bilaterally symmetrical. HEART: S1 and S2 positive. LUNGS: Clear to auscultation. ABDOMEN: Soft. Bowel sounds positive. No organomegaly. EXTREMITIES: No edema, no cyanosis. NEUROLOGICAL: The patient is awake, alert. Moving all four extremities. No focal deficit. MEDICATIONS: Tylenol, buspirone, Periactin, Lexapro, Dilaudid, Atarax, Lantus, Protonix, MiraLax, Seroquel, Carafate, Daptril. LABORATORY DATA: White blood cells 7.5, hemoglobin 14.5, hematocrit 44.8, platelets 231,000. Sodium 135, potassium 3.6, BUN 6, creatinine 0.6, glucose 271. ASSESSMENT AND PLAN: Mr. Juan Gonzalez Jr. 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 EKG has no abnormalities when compared to the EKG from the past admission. Troponin negative x2. Echo done. Exercise stress test done. The patient was unable to tolerate exercise stress test. The patient has poor functional capacity due to mental status pathology. Unable to ambulate on treadmill. Chest pain may be costochondritis in nature and not cardiac as per hospital administrator, admitting doctor, Dr. Fam Moon and Dr. Elidia Duran. Diabetes was recently diagnosed six months ago, had poor control. His recent hemoglobin A1c 13. History of substance abuse, especially cocaine and cannabinoid. The patient is advised small, low fiber, and low fat meal, antiemetic as needed, continue PPI, strict glycemic control, outpatient followup, substance abuse. GI already signed off the case, wants colonoscopy in six months. Last EGD and colonoscopy were done six months ago. Plan was to discharge the patient. We will adjust the medication. GI and DVT prophylaxis. Repeat labs. We will follow. Hillary Keller MD MTDD
[2017-07-22] MEDS: (Novolin R) Insulin Human Regular 100 units/ml vial SC SCH ×4 (08:10→21:44)
[2017-07-22] MEDS: POLYETHYLENE GLYCOL 3350 17 GM/Dose PACKET PO SCH (10:01)
[2017-07-22] MEDS: Pantoprazole 40 mg EC Tab PO SCH (10:01)
[2017-07-22] MEDS: Sucralfate 1 gm/10 ml Oral Susp UD PO SCH ×4 (10:01→22:14)
[2017-07-22] MEDS ORDERED: Bisacodyl 5mg EC Tab PO ONE (10:35)
--- NOTE | 2017-07-22 10:42 | PCM.PYCHPN ---
Psychiatric Progress Note - Psychiatric Progress Note Patient seen today, length of contact: 15 min Patient Chief Complaint: "My stomach hurts" Problems Identified/Issues Discussed: Patient seen and evaluated, chart reviewed and discussed with the nurse. The patient reports depressed mood and at times feelings of hopelessness or helplessness. He reports poor sleep and poor appetite. He wants to sign in for 5E. He is taking medications and denies any side effects. Supportive therapy and psychoeducation were given. Medication Change: No Medical Record Reviewed: Yes Mental Status Examination - Cognitive Function Orientation: Person, Place, Situation, Time Memory: Intact Attention: WNL Concentration: WNL Association: WNL Fund of Knowledge: Poor - Mood Mood: Depressed, Anxious - Affect Affect: Constricted - Speech Speech: Soft - Formal Thought Process Formal Thought Process: No Impairment - Suicidal Ideation Suicidal Ideation: No - Homicidal Ideation Homicidal Ideation: No Goal/Treatment Plan - Goal/Treatment Plan Need for Continued Stay: Severe depression anxiety, Severe functional impairment Progress Toward Problem(s) and Goals/Treatment Plan: CBT Psycho education Supportive therapy Lexapro 20 mg PO Daily Seroquel 100 mg PO QHS Hydroxyzine prn - Smoking Cessation Smoking Cessation Initiated: No
[2017-07-22] MEDS: Simethicone 80 mg Chewtab PO PRN (17:39)
--- NOTE | 2017-07-22 18:04 | CP.PCM.PN ---
Subjective - Date & Time of Evaluation Date of Evaluation: 07/22/17 Time of Evaluation: 11:00 Objective - Vital Signs/Intake and Output Vital Signs (last 24 hours): Temp Pulse Resp BP Pulse Ox 98.4 F 74 20 135/90 97 07/22/17 09:48 07/22/17 16:15 07/22/17 09:48 07/22/17 16:15 07/22/17 09:48 Intake and Output: 07/22/17 07/22/17 06:59 18:59 Intake Total 1440 Balance 1440 - Medications Medications: Current Medications Acetaminophen (Tylenol 325mg Tab) 650 mg PO TID PRN PRN Reason: Pain, Mild (1-3) Buspirone HCl (Buspar) 10 mg PO BID PRN PRN Reason: Anxiety Cyproheptadine HCl (Periactin) 4 mg PO DAILY [facility] Last Admin: 07/22/17 10:01 Dose: 4 mg Docusate Sodium (Colace) 100 mg PO BID [facility] Last Admin: 07/22/17 17:03 Dose: 100 mg Ergocalciferol (Drisdol 50,000 Intl Units Cap) 1 cap PO Q7D [facility] Last Admin: 07/22/17 00:08 Dose: 1 cap Escitalopram Oxalate (Lexapro) 20 mg PO DAILY [facility] Last Admin: 07/22/17 10:02 Dose: 20 mg Famotidine (Pepcid) 20 mg PO BID [facility] Last Admin: 07/22/17 17:57 Dose: 20 mg Fluconazole (Diflucan) 100 mg PO DAILY [facility] Hydroxyzine HCl (Atarax) 25 mg PO Q6 PRN PRN Reason: Agitation Last Admin: 07/20/17 07:14 Dose: 25 mg Insulin Glargine (Lantus) 12 unit SC HS [facility] Insulin Human Regular (Novolin R) 0 unit SC ACHS [facility] PRN Reason: Protocol Last Admin: 07/22/17 17:19 Dose: 1 unit Mirtazapine (Remeron) 30 mg PO HS [facility] Ondansetron HCl (Zofran Tab) 4 mg PO Q8 PRN PRN Reason: Nausea/Vomiting Last Admin: 07/22/17 17:08 Dose: 4 mg Polyethylene Glycol (Miralax) 17 gm PO DAILY [facility] Last Admin: 07/22/17 10:01 Dose: 17 gm Quetiapine Fumarate (Seroquel) 100 mg PO HS [facility] Last Admin: 07/21/17 22:14 Dose: 100 mg Simethicone (Mylicon Chew Tab) 80 mg PO Q6H PRN PRN Reason: GI distress Last Admin: 07/22/17 17:39 Dose: 80 mg Sucralfate (Carafate Oral Susp) 1 gm PO QID [facility] Last Admin: 07/22/17 17:39 Dose: 1 gm Tramadol HCl (Ultram) 50 mg PO Q6 PRN PRN Reason: Pain, moderate (4-7) Trazodone HCl (Desyrel) 50 mg PO HS PRN PRN Reason: Insomnia Last Admin: 07/21/17 22:14 Dose: 50 mg - Labs Labs: 07/19/17 08:14 07/20/17 20:57 Assessment and Plan - Assessment and Plan (Free Text) Assessment: Patient is seen and examined in am with DR Keller. Has complaints of constipation and abdominal pain. Medications given as needed. D/W DR Keller and DR Lozano, plan to discharge to the psyche floor for treating severe depression. Patient was in agreement and transferred to [facility]. No acute distress noted.
--- NOTE | 2017-07-22 20:49 | PCM.BM ---
Treatment Plan Problems - Problems identified on initial assessmt Depression Date Initiated: 07/22/17 Time Initiated: 15:00 Assessment reference: NA Status: Active Treatment assets and liabiliti Patient Assests: good support system, cognitively intact Patient Liabilities: poor support system, substance abuse (Cocaine, Cannabis), medical problems - Milieu Protocol Maintain good personal hygiene: daily Encourage regular showers, daily Remind patient to perform daily oral care Conduct patient checks and document Observation sheet: Q15 minutes Maintain personal safety: every shift Educate patient to report safety concerns to staff, every shift Monitor environment for contraband/sharps Medication safety: Monitor for expected outcome, potential side effects: every shift, Assess barriers to learning: every shift, Assess readiness for medication education: every shift Milieu Narrative: CBT Psycho education Supportive therapy Lexapro 10 mg PO Daily Seroquel 100 mg PO QHS Hydroxyzine prn Discharge/Continuing Care - Treatment Team Participation Patient/Family/SO Statement: CBT Psycho education Supportive therapy Lexapro 10 mg PO Daily Seroquel 100 mg PO QHS Hydroxyzine prn
[2017-07-23] MEDS: (Novolin R) Insulin Human Regular 100 units/ml vial SC SCH ×4 (07:57→21:18)
[2017-07-23] MEDS: Sucralfate 1 gm/10 ml Oral Susp UD PO SCH ×4 (09:10→21:21)
[2017-07-23] MEDS: POLYETHYLENE GLYCOL 3350 17 GM/Dose PACKET PO SCH (09:11)
[2017-07-23 09:25] LABS: MEAN CELL VOLUME 86.9 fL (80.0-94.0); MEAN CORPUSCULAR HEMOGLOBIN 29.7 pg (27.0-31.0); MEAN CORPUSCULAR HGB CONC 34.1 g/dL (33.0-37.0); MEAN PLATELET VOLUME 9.1 fL (7.2-11.7); RED CELL DISTRIBUTION WIDTH 13.7 % (11.5-14.5); WHITE BLOOD COUNT 5.3 K/uL (4.8-10.8)
[2017-07-23 10:23] LABS: CALCIUM 9.1 mg/dl (8.6-10.4); CHLORIDE 96 mmol/L (98-107); GFR AFRICAN-AMERICAN > 60; GLUCOSE,RANDOM 78 mg/dL (75-110); SODIUM 142 mmol/L (132-148)
[2017-07-23 10:33] LABS: BLOOD UREA NITROGEN 4 mg/dL (9-20); CARBON DIOXIDE 36 mmol/L (22-30); POTASSIUM 2.7 mmol/L (3.6-5.2)
[2017-07-23] MEDS: Potassium Chloride 20 mEq/15 ml LIQ UD PO SCH ×3 (14:52→17:45)
[2017-07-23 15:19] LABS: MAGNESIUM 1.7 mg/dL (1.6-2.3)
--- NOTE | 2017-07-23 16:02 | CP.PCM.CON ---
History of Present Illness - History of Present Illness History of Present Illness: Medicine Note for Hospital Service - Dr. Galloway Consulted for: Abdominal Pain and decreased oral intake HPI: 26M with PMHx of IDDM, Gastritis, Substance Abuse Disorder and Schizophrenia seen on psych due to decreased oral intake and persistent abdominal pain. Patient has A1C of 13.1 and states he is compliant with his insulin. He was admitted for chest pain and hematemesis. Patient had ECHO and a stress test performed (results unknown). Patient had an EGD performed which revealed gastritis, no active bleed. Medicine team was consulted due to persistent n/v, abdominal pain, intolerance to anything PO, and electrolyte imbalance. Denied fever, chills, headache, chest pain, d/c or urinary symptoms. PMHx: IDDM, Gastritis, Substance Abuse Disorder and Schizophrenia PSHx: Denies Meds: Humalog 20 unit TID, Trazodone 50 mg HS, Seroquel 100 mg HS, Lexapro 10 mg qD, Periactin 4 mg qD All: NKDA SHx: smokes marijuana, but denies etoh, positive cocaine FHx: Unremarkable PMD: Dr. 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) - RENAL Hx Chronic Kidney Disease: No - ENDOCRINE/METABOLIC Hx Endocrine Disorders: Yes Hx Diabetes Mellitus Type 1: Yes (insulin dependent) - HEMATOLOGICAL/ONCOLOGICAL Hx Human Immunodeficiency Virus (HIV): No - INTEGUMENTARY Hx Dermatological Problems: No - MUSCULOSKELETAL/RHEUMATOLOGICAL Hx Falls: No - GASTROINTESTINAL Hx Crohn's Disease: Yes - GENITOURINARY/GYNECOLOGICAL Hx Genitourinary Disorders: No - PSYCHIATRIC Hx Substance Use: Yes - SURGICAL HISTORY Hx Surgeries: Yes Other/Comment: wired Jaw - ANESTHESIA Hx Anesthesia: Yes Hx Anesthesia Reactions: No Hx Malignant Hyperthermia: No Meds Home Medications: Home Medication List Medication Instructions Recorded Confirmed Type Famotidine [Pepcid] 20 mg PO BID #30 tab 07/22/17 Rx Ondansetron [Zofran] 4 mg PO Q8H PRN #20 tab 07/22/17 Rx Sennosides [Senna] 8.6 mg PO BID #30 tablet 07/22/17 Rx Allergies/Adverse Reactions: Allergies Allergy/AdvReac Type Severity Reaction Status Date / Time No Known Allergies Allergy Verified 02/07/17 22:42 - Medications Medications: Current Medications Acetaminophen (Tylenol 325mg Tab) 650 mg PO TID PRN PRN Reason: Pain, Mild (1-3) Last Admin: 07/23/17 00:17 Dose: 650 mg Buspirone HCl (Buspar) 10 mg PO BID PRN PRN Reason: Anxiety Docusate Sodium (Colace) 100 mg PO BID [facility] Last Admin: 07/23/17 09:10 Dose: Not Given Ergocalciferol (Drisdol 50,000 Intl Units Cap) 1 cap PO Q7D [facility] Last Admin: 07/22/17 00:08 Dose: 1 cap Escitalopram Oxalate (Lexapro) 20 mg PO DAILY [facility] Last Admin: 07/22/17 10:02 Dose: 20 mg Famotidine (Pepcid) 20 mg PO BID [facility] Last Admin: 07/22/17 17:57 Dose: 20 mg Hydroxyzine HCl (Atarax) 25 mg PO Q6 PRN PRN Reason: Agitation Last Admin: 07/20/17 07:14 Dose: 25 mg Insulin Glargine (Lantus) 12 unit SC HS [facility] Last Admin: 07/22/17 22:04 Dose: 12 units Insulin Human Regular (Novolin R) 0 unit SC [facility] PRN Reason: Protocol Last Admin: 07/23/17 13:54 Dose: Not Given Mirtazapine (Remeron) 30 mg PO HS [facility] Ondansetron HCl (Zofran Tab) 4 mg PO Q8 PRN PRN Reason: Nausea/Vomiting Last Admin: 07/22/17 17:08 Dose: 4 mg Potassium Chloride (Potassium Chloride Oral Soln) 40 meq PO BID [facility] Stop: 07/24/17 14:01 Last Admin: 07/23/17 15:05 Dose: Not Given Quetiapine Fumarate (Seroquel) 50 mg PO HS [facility] Simethicone (Mylicon Chew Tab) 80 mg PO Q6H PRN PRN Reason: GI distress Last Admin: 07/22/17 17:39 Dose: 80 mg Sucralfate (Carafate Oral Susp) 1 gm PO QID [facility] Last Admin: 07/23/17 13:52 Dose: Not Given Tramadol HCl (Ultram) 50 mg PO Q6 PRN PRN Reason: Pain, moderate (4-7) Last Admin: 07/23/17 08:51 Dose: 50 mg Physical Exam - Constitutional Appears: No Acute Distress, Unkempt - Head Exam Head Exam: NORMAL INSPECTION, NORMOCEPHALIC - Eye Exam Eye Exam: EOMI, Normal appearance, PERRL - ENT Exam ENT Exam: Mucous Membranes Dry - Respiratory Exam Respiratory Exam: Clear to Auscultation Bilateral, NORMAL BREATHING PATTERN. absent: Wheezes - Cardiovascular Exam Cardiovascular Exam: REGULAR RHYTHM, RRR, +S1, +S2 - GI/Abdominal Exam GI & Abdominal Exam: Normal Bowel Sounds, Soft. absent: Distended, Tenderness - Extremities Exam Extremities exam: Positive for: normal inspection, pedal pulses present. Negative for: pedal edema, tenderness - Neurological Exam Neurological exam: Alert, Oriented x3 - Psychiatric Exam Psychiatric exam: Normal Affect, Normal Mood - Skin Skin Exam: Dry, Intact, Normal Color, Warm Results - Vital Signs Recent Vital Signs: Last Vital Signs Temp 98.4 F 07/22/17 09:48 Pulse 74 07/22/17 16:15 Resp 20 07/22/17 09:48 BP 135/90 07/22/17 16:15 Pulse Ox 97 07/22/17 09:48 - Labs Result Diagrams: 07/23/17 16:39 07/23/17 16:39 Labs: Laboratory Results - last 24 hr 07/22/17 07/22/17 07/23/17 16:07 20:15 07:43 WBC RBC Hgb Hct MCV MCH MCHC RDW Plt Count MPV Sodium Potassium Chloride Carbon Dioxide Anion Gap BUN Creatinine Est GFR ( Amer) Est GFR (Non-Af Amer) POC Glucose (mg/dL) 179 H 223 H 73 Random Glucose Calcium Magnesium 07/23/17 07/23/17 07/23/17 09:13 09:13 11:53 WBC 5.3 RBC 5.64 Hgb 16.7 D Hct 49.0 MCV 86.9 D MCH 29.7 MCHC 34.1 RDW 13.7 Plt Count 253 MPV 9.1 Sodium 142 Potassium 2.7 L Chloride 96 L Carbon Dioxide 36 H Anion Gap 13 BUN 4 L Creatinine 0.5 L Est GFR ( Amer) > 60 Est GFR (Non-Af Amer) > 60 POC Glucose (mg/dL) 98 Random Glucose 78 Calcium 9.1 Magnesium 1.7 Assessment & Plan - Assessment and Plan (Free Text) Plan: IDDM Endocrinology consulted- Dr. Moon - help appreciated Labs: A1C - 13.1 (07/20) Medications: D5 1/2 NS with K - 100cc/hr Lantus 12 unit SC QHS - continue to HOLD until appetite returns, ISS - low Gastritis Seen on EGD on 07/20/17 Electrolyte Imbalance Continue to monitor Potassium, Phosphorus, and Magnesium Prolonged QT interval Secondary to psych medications - which are on hold Continue to monitor Hx Chest Pain Cardiology consulted - Dr. Dickerson- help appreciated Stress test performed - pending results Substance Abuse Disorder UDS - + cocaine and cannabinoids Schizophrenia, bipolar disorder anxiety disorder, depression Management by Psych Prophylactic Measures GI PPX: Protonix 40mg PO BID, Sucralfate 1 gm PO QID DVT PPX: encourage ambulation Liquid Diet DW Thai Parker DO, PGY-1
[2017-07-23 16:29] LABS: DRAW SITE RIGHT RAD
[2017-07-23 16:48] LABS: BASO % 1.1 % (0.0-2.0); EOS % 0.6 % (0.0-4.0); HEMATOCRIT 46.7 % (35.0-51.0); LYMPH # 0.9 K/uL (1.0-4.3); LYMPH % 21.6 % (20.0-40.0); MEAN CELL VOLUME 86.9 fL (80.0-94.0); MEAN CORPUSCULAR HEMOGLOBIN 29.3 pg (27.0-31.0); MEAN CORPUSCULAR HGB CONC 33.8 g/dL (33.0-37.0); MONO # 0.4 K/uL (0.0-0.8); MONO % 9.8 % (0.0-10.0); NRBC % 0.1 % (0.0-2.0); RED CELL DISTRIBUTION WIDTH 13.8 % (11.5-14.5); WHITE BLOOD COUNT 4.4 K/uL (4.8-10.8)
[2017-07-23 16:58] LABS: ALB/GLOB RATIO 1.1 (1.0-2.1); ALKALINE PHOSPHATASE 74 U/L (38-126); ALT/SGPT 31 U/L (21-72); AST/SGOT 17 U/L (17-59); BILIRUBIN,TOTAL 0.9 mg/dL (0.2-1.3); BLOOD UREA NITROGEN 5 mg/dL (9-20); CALCIUM 8.7 mg/dl (8.6-10.4); CARBON DIOXIDE 29 mmol/L (22-30); CHLORIDE 97 mmol/L (98-107); GFR AFRICAN-AMERICAN > 60; GLUCOSE,RANDOM 189 mg/dL (75-110); MAGNESIUM 1.6 mg/dL (1.6-2.3); POTASSIUM 2.9 mmol/L (3.6-5.2); SODIUM 137 mmol/L (132-148); TOTAL PROTEIN 7.6 g/dL (6.3-8.3)
[2017-07-23] MEDS ORDERED: Magnesium Sulfate 1 gm in D5W 1 GM/100 ML BAG IVPB ONE (19:00)
[2017-07-23] MEDS: Potassium Chl 40 mEq in D5-1/2 1,000 ML IV SCH (19:49)
--- NOTE | 2017-07-23 21:08 | CARD ---
APPROVED REPORT EXAM: Two-dimensional and M-mode echocardiogram with Doppler and color Doppler. Other Information Quality : GoodRhythm : INDICATION Chest Pain RISK FACTORS Diabetes 2D DIMENSIONS IVSd0.6 (0.7-1.1cm)LVDd3.4 (3.9-5.9cm) PWd0.9 (0.7-1.1cm)LVDs2.1 (2.5-4.0cm) FS (%) 38.7 %LVEF (%)70.2 (>50%) M-Mode DIMENSIONS RVDd1.69 (2.1-3.2cm)Left Atrium (MM)2.25 (2.5-4.0cm) IVSd0.76 (0.7-1.1cm)Aortic Root2.66 (2.2-3.7cm) LVDd3.82 (4.0-5.6cm)Aortic Cusp Exc.1.69 (1.5-2.0cm) PWd0.76 (0.7-1.1cm)FS (%) 44 % LVDs2.12 (2.0-3.8cm)LVEF (%)76 (>50%) Mitral Valve MV E Zxofmfcv23.3cm/sMV A Bnpfaijz93.5cm/sE/A ratio1.3 TDI E/Lateral E'0.0E/Medial E'0.0 Tricuspid Valve TR Peak [id number]/sTR Peak [id number] <Conclusion> Left ventricle: thickness: normal; size: normal; overall ejection fraction: 75%: diastolic filling pressures: normal Mitral valve: annulus: normal: leaflets: normal: excursion: normal; no significant trans-mitral gradient: mild incompetence: left atrium: normal Aortic valve: leaflets: normal: excursion: normal; no significant trans-aortic gradient: No significant incompetence: aortic root: normal Right sided Structures: Pulmonary valve: normal; no significant incompetence; Tricuspid valve: normal; no significant incompetence: Intra-cardiac hemodynamics: pulmonary systolic pressures: normal; central venous pressures: normal No pericardial effusion
--- NOTE | 2017-07-23 22:28 | CP.PCM.PN ---
Subjective - Date & Time of Evaluation Date of Evaluation: 07/23/17 Time of Evaluation: 22:19 - Subjective Subjective: uncontrolled DM Objective - Vital Signs/Intake and Output Vital Signs (last 24 hours): Temp Pulse Resp BP Pulse Ox 98.4 F 67 20 144/97 H 97 07/23/17 19:15 07/23/17 20:00 07/23/17 19:15 07/23/17 19:15 07/23/17 19:15 - Medications Medications: Current Medications Acetaminophen (Tylenol 325mg Tab) 650 mg PO TID PRN PRN Reason: Pain, Mild (1-3) Last Admin: 07/23/17 00:17 Dose: 650 mg Buspirone HCl (Buspar) 10 mg PO BID PRN PRN Reason: Anxiety Docusate Sodium (Colace) 100 mg PO BID [facility] Last Admin: 07/23/17 17:51 Dose: 100 mg Ergocalciferol (Drisdol 50,000 Intl Units Cap) 1 cap PO Q7D [facility] Last Admin: 07/22/17 00:08 Dose: 1 cap Escitalopram Oxalate (Lexapro) 20 mg PO DAILY [facility] Last Admin: 07/22/17 10:02 Dose: 20 mg Famotidine (Pepcid) 20 mg PO BID [facility] Last Admin: 07/22/17 17:57 Dose: 20 mg Hydroxyzine HCl (Atarax) 25 mg PO Q6 PRN PRN Reason: Agitation Last Admin: 07/20/17 07:14 Dose: 25 mg Potassium Chloride/Dextrose/Sod Cl (Potassium Chl 40 Meq In D5-1/2ns) 1,000 mls @ 100 mls/hr IV .Q10H [facility] Last Admin: 07/23/17 19:49 Dose: 100 mls/hr Insulin Human Regular (Novolin R) 0 unit SC ACHS [facility] PRN Reason: Protocol Last Admin: 07/23/17 21:18 Dose: Not Given Mirtazapine (Remeron) 30 mg PO HS [facility] Ondansetron HCl (Zofran Tab) 4 mg PO Q8 PRN PRN Reason: Nausea/Vomiting Last Admin: 07/22/17 17:08 Dose: 4 mg Pantoprazole Sodium (Protonix Ec Tab) 40 mg PO BID [facility] Potassium Chloride (Potassium Chloride Oral Soln) 40 meq PO BID [facility] Stop: 07/24/17 14:01 Last Admin: 07/23/17 17:45 Dose: Not Given Quetiapine Fumarate (Seroquel) 50 mg PO HS [facility] Simethicone (Mylicon Chew Tab) 80 mg PO Q6H PRN PRN Reason: GI distress Last Admin: 07/22/17 17:39 Dose: 80 mg Sucralfate (Carafate Oral Susp) 1 gm PO QID [facility] Last Admin: 07/23/17 21:21 Dose: 1 gm Tramadol HCl (Ultram) 50 mg PO Q6 PRN PRN Reason: Pain, moderate (4-7) Last Admin: 07/23/17 08:51 Dose: 50 mg - Labs Labs: 07/23/17 16:39 07/23/17 16:39 Assessment and Plan (1) Diabetic neuropathy Status: Acute (2) Chest pain Status: Acute (3) Euthyroid sick syndrome Status: Acute (4) Vitamin D deficiency Status: Acute (5) DM I (diabetes mellitus, type I), uncontrolled Assessment & Plan: Assessment and Plan: Endocrine consult reason for consult: uncontrolled diabetes Source : chart review Mr. Gonzalez is 26 y/o admitted for chest pain first encounter : as per chart review , pt seen @ echo s/p EGD for nausea s/p one episode of coffee ground vomiting , found sleepy , unco-operative with electrical/instrument technician asking him to move to the side since he is nauseous, with DM type 1 , comlicated with neuropathy , recurrent admissions for DKA was just left few days ago , outpatient on humalog 20 units tid , endocrine contacted yesterday , orderes for IV d5 NS @ 100 cc/h & change coverage to regular insulin tid & hs . as per nurse now @ 8:30 pm , pt still on clear liquid & looks better & co- operative blood glucose log :[id number] still with abdominal pain & poor intake , started on glucerna , just resumed D5NS . back to [facility] Past medical history : Chron's disease , Past surgical history : not documented Psychiatry history : (+) psychiatry dosorder Social history : active smoking , active illicit drug use , ?ETOH use Family history : DM on father side ROS: Constitutional: no fever ,tiredness/weakness .HEENT: no earache, change in voice .Respiratory: no cough, sob . CVS :(+) chest pain, no palpitations . Abdomen : (+) abdominal pain, (-) nausea /vomiting , no change bowel movement . SAMPLE DRILLER : denies light-headedness, dizziness. Extremities : no edema , no tremors . Skin: no itching, no rash Physical exam Well developed AAO x 3 ,NAD VSS HEENT: norm cephalic, atraumatic , no lid lag , no exophthalmos NECK: supple, no palpable lymphadenopathy THYROID: no palpable thyromegaly , not tender CHEST: fair air entry, bilateral, CVS: S1,S2 ABDOMEN: bowel sound present, benign, obese, no wide purple striae , no bruises EXTREMITIES: no edema, clubbing or cyanosis, no palpable hand tremors Skin : acanthosis nigricans lab: tsh 0.46, t30.78 , ft3 1.9 , ft4 1.35 , t4 8.46 , vitamin d < 12.8 , hco3 21 , AG 16 tsh 0.20, a1c 13.1 , urine drug screen : (+) cocaine (+) cannabinoids , HCO 12 , AG 26 Assessment hypoglycemia uncontrolled type 1/s/p DKA , just resumed d5NS @ 100cc/h , on glucerna acute euthyroid sick hypocalcemia /vitamin D deficiency abdominal pain , s/p coffee ground vomiting , chest pain plan off levemir 12 units @ hs continue Novoloin R low dose coverage, no 3 am coverage resume IVF D5 NS @ 100 cc/h on vitamin d 50,000 po weekly we will follow with you. Status: Chronic
[2017-07-23 23:23] LABS: BLOOD UREA NITROGEN 6 mg/dL (9-20); CALCIUM 8.3 mg/dl (8.6-10.4); CARBON DIOXIDE 27 mmol/L (22-30); CHLORIDE 95 mmol/L (98-107); GFR AFRICAN-AMERICAN > 60; GLUCOSE,RANDOM 322 mg/dL (75-110); POTASSIUM 3.1 mmol/L (3.6-5.2); SODIUM 133 mmol/L (132-148)
[2017-07-24] MEDS ORDERED: DiphenhydrAMINE 50 mg/ml Inj IVP ONE (00:34)
[2017-07-24] MEDS: Simethicone 80 mg Chewtab PO PRN (00:49)
[2017-07-24] MEDS: Potassium Chl 40 mEq in D5-1/2 1,000 ML IV SCH ×4 (06:59→18:01)
[2017-07-24 08:06] LABS: EOS % 0.6 % (0.0-4.0); HEMATOCRIT 43.9 % (35.0-51.0); LYMPH # 0.9 K/uL (1.0-4.3); LYMPH % 22.9 % (20.0-40.0); MEAN CELL VOLUME 87.2 fL (80.0-94.0); MEAN CORPUSCULAR HEMOGLOBIN 29.5 pg (27.0-31.0); MEAN CORPUSCULAR HGB CONC 33.8 g/dL (33.0-37.0); MEAN PLATELET VOLUME 9.3 fL (7.2-11.7); MONO # 0.4 K/uL (0.0-0.8); MONO % 9.9 % (0.0-10.0); WHITE BLOOD COUNT 3.8 K/uL (4.8-10.8)
[2017-07-24] MEDS: (Novolin R) Insulin Human Regular 100 units/ml vial SC SCH ×4 (08:25→23:30)
[2017-07-24 09:03] LABS: ALB/GLOB RATIO 1.1 (1.0-2.1); ALKALINE PHOSPHATASE 71 U/L (38-126); ALT/SGPT 32 U/L (21-72); AST/SGOT 14 U/L (17-59); BLOOD UREA NITROGEN 5 mg/dL (9-20); CALCIUM 8.2 mg/dl (8.6-10.4); CARBON DIOXIDE 27 mmol/L (22-30); CHLORIDE 95 mmol/L (98-107); GFR AFRICAN-AMERICAN > 60; GLUCOSE,RANDOM 345 mg/dL (75-110); MAGNESIUM 1.7 mg/dL (1.6-2.3); POTASSIUM 3.7 mmol/L (3.6-5.2); SODIUM 135 mmol/L (132-148)
--- NOTE | 2017-07-24 09:07 | PN ---
DATE: 07/22/2017 SUBJECTIVE: The patient is a 26-year-old male. The patient is seen and examined at the bedside, lying in the bed, complaining about abdominal pain, and feeling fatigue and tired. Cleared by the Cardiology. Came with chest pain, but according to senior operations manager, looks like musculoskeletal. Discussion done with Tia, nurse practitioner. The patient has history of drug abuse, may be going to withdrawals, and call consult with psychiatrist. PHYSICAL EXAMINATION: VITAL SIGNS: Temperature 98.4, pulse 74, blood pressure 135/90, and respiratory rate 20. HEENT: Head is normocephalic and atraumatic. Eyes: PERRLA. Extraocular muscles intact. Conjunctivae clear. Nose patent. Mucous membranes moist. NECK: Supple. No carotid bruits, JVD or thyromegaly. CHEST: Bilaterally symmetrical. HEART: S1 and S2 positive. LUNGS: Clear to auscultation. ABDOMEN: Soft. Bowel sounds present. No organomegaly. EXTREMITIES: No edema. No cyanosis. NEUROLOGIC: The patient is awake and alert. Moving all 4 extremities. No focal deficits. MEDICATIONS: Atarax, BuSpar, Carafate, Colace, trazodone, vitamin D, Lantus, Lexapro, MiraLax, Mylicon, cyproheptadine, Remeron, Tylenol, tramadol, and Zofran. LABORATORY DATA: We do not have recent labs today, but I reviewed old labs. ASSESSMENT AND PLAN: The patient has diabetes mellitus, seen by Dr. Autumn Lozano, psychiatrist. Reviewed Dr. Lozano's notes, seen by Fam Moon, research development director with history of insulin-dependent diabetes mellitus, diabetic nephropathy, Crohn's disease, bipolar, schizophrenia, anxiety, depression, came with pain, but according to senior operations manager, this looks like not cardiac pain, may be musculoskeletal, may be cocaine consumption. The patient is bipolar and has schizophrenia, may be costochondritis. Seen by Dr. Elidia Duran, senior investment manager, history of illicit drug abuse, LA grade C erosive esophagitis, gastritis, and duodenitis. endoscopy evaluation on 07/20/2017 with findings like gastritis, biopsy, and pathology pending. Tolerating liquid diet. Continue proton pump inhibitor b.i.d. MiraLax is given. Minimal opioid medication as this may aggravate and cause nausea. Asked to stop cocaine and marijuana. Hemoglobin A1c is more than 13 that shows diabetes is not very well control, may be the patient has gastroparesis. Gastroenterology already sign off the case and wants 6-month followup for colonoscopy. The patient's toxicology shows cocaine and cannabinoid positive, glucosuria, and ketonuria. Discussion done with Tia. We will continue present treatment. Gastrointestinal and deep venous thrombosis prophylaxis. Repeat labs. We will follow. Hillary Keller MD MTDD
[2017-07-24] MEDS: Pantoprazole 40 mg EC Tab PO SCH ×2 (09:36→17:54)
[2017-07-24] MEDS: Sucralfate 1 gm/10 ml Oral Susp UD PO SCH ×4 (09:36→23:18)
--- NOTE | 2017-07-24 09:49 | PN ---
DATE: 07/23/2017 SUBJECTIVE: The patient is a 26-year-old male. The patient is seen and examined at the bedside, looking comfortable. No nausea, vomiting, or diarrhea. No hematemesis or hematochezia. No swelling of the legs. No chest pain or palpitations, but complaining about abdominal pain, fatigue, and tired. PHYSICAL EXAMINATION: VITAL SIGNS: Temperature is 98.4, pulse is 67, blood pressure is 145/97, and respiratory rate is 20. HEENT: Head; normocephalic and atraumatic. Eyes; PERRLA. Extraocular muscles intact. Conjunctivae clear. Nose is patent. NECK: Supple. No carotid bruits. No JVD or thyromegaly. CHEST: Bilaterally symmetrical. HEART: S1 and S2 positive. LUNGS: Clear to auscultation. ABDOMEN: Soft. Tender in the epigastric area. EXTREMITIES: No edema. No cyanosis. NEUROLOGIC: The patient is awake and alert. Moving all 4 extremities. No focal deficits. MEDICATIONS: Atarax, BuSpar, Carafate, Colace, Lexapro, Mylicon, insulin, Pepcid, potassium, Protonix, Remeron, Seroquel, Tylenol, tramadol, and Zofran. LABORATORY DATA: White blood cell 4.4, hemoglobin 15.8, hematocrit of 46.7, and platelets 233. Sodium 137, potassium 2.9, BUN 5, creatinine 0.5, and glucose 228. ASSESSMENT AND PLAN: a 26-year-old male with leukopenia, hypokalemia, hyperglycemia, proteinuria, ketonuria, cocaine, cannabinoid positive in toxicology, and human immunodeficiency virus 1 and 2 antibody is negative. The patient has a history of gastritis, substance abuse, schizophrenia, and electrolyte imbalance. We will monitor potassium, phosphorus, and magnesium, and prolonged QT interval secondary to psych medication, which are on hold. Continue monitoring, but junior accountant cleared the patient. Cardiology has appreciated stress test performed and anxiety. Gastrointestinal and deep venous thrombosis prophylaxis. The patient is seen by the psychiatrist also. The patient was seen by GI, Dr. Duran. We will continue present treatment and his electrolytes. We will follow up. Discussion done with Dr. Duran about the patient's psychiatrist. Hillary Keller MD LEANDRO
[2017-07-24] MEDS ORDERED: Potassium Chloride 20 mEq/15 ml LIQ UD PO ONE (10:00)
[2017-07-24] MEDS ORDERED: Iohexol 240 (50 ml) PO ONE (11:00)
--- NOTE | 2017-07-24 12:07 | CP.PCM.CON ---
History of Present Illness - History of Present Illness History of Present Illness: Podiatry consult note for Dr. Ram Consulted for: Abdominal Pain and decreased oral intake 26 year old male with PMHx including IDDM, Gastritis, Substance Abuse Disorder and Schizophrenia seen for diabetic foot care. Patient states that he has had diabetes for 6 years. He denies seeing a application security developer for any foot care. He states that his nails are elongated and painful but he is afraid to cut them. Currently admits to nausea but denies v/f/c/sob/cp. 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) - RENAL Hx Chronic Kidney Disease: No - ENDOCRINE/METABOLIC Hx Endocrine Disorders: Yes Hx Diabetes Mellitus Type 1: Yes (insulin dependent) - HEMATOLOGICAL/ONCOLOGICAL Hx Human Immunodeficiency Virus (HIV): No - INTEGUMENTARY Hx Dermatological Problems: No - MUSCULOSKELETAL/RHEUMATOLOGICAL Hx Falls: No - GASTROINTESTINAL Hx Crohn's Disease: Yes - GENITOURINARY/GYNECOLOGICAL Hx Genitourinary Disorders: No - PSYCHIATRIC Hx Substance Use: Yes - SURGICAL HISTORY Hx Surgeries: Yes Other/Comment: wired Jaw - ANESTHESIA Hx Anesthesia: Yes Hx Anesthesia Reactions: No Hx Malignant Hyperthermia: No Meds Home Medications: Home Medication List Medication Instructions Recorded Confirmed Type Famotidine [Pepcid] 20 mg PO BID #30 tab 07/22/17 Rx Ondansetron [Zofran] 4 mg PO Q8H PRN #20 tab 07/22/17 Rx Sennosides [Senna] 8.6 mg PO BID #30 tablet 07/22/17 Rx Allergies/Adverse Reactions: Allergies Allergy/AdvReac Type Severity Reaction Status Date / Time No Known Allergies Allergy Verified 02/07/17 22:42 - Medications Medications: Current Medications Acetaminophen (Tylenol 325mg Tab) 650 mg PO TID PRN PRN Reason: Pain, Mild (1-3) Last Admin: 07/23/17 00:17 Dose: 650 mg Buspirone HCl (Buspar) 10 mg PO BID PRN PRN Reason: Anxiety Docusate Sodium (Colace) 100 mg PO BID [facility] Last Admin: 07/24/17 09:36 Dose: 100 mg Ergocalciferol (Drisdol 50,000 Intl Units Cap) 1 cap PO Q7D [facility] Last Admin: 07/22/17 00:08 Dose: 1 cap Escitalopram Oxalate (Lexapro) 20 mg PO DAILY [facility] Last Admin: 07/22/17 10:02 Dose: 20 mg Famotidine (Pepcid) 20 mg PO BID [facility] Last Admin: 07/22/17 17:57 Dose: 20 mg Hydroxyzine HCl (Atarax) 25 mg PO Q6 PRN PRN Reason: Agitation Last Admin: 07/20/17 07:14 Dose: 25 mg Potassium Chloride/Dextrose/Sod Cl (Potassium Chl 40 Meq In D5-1/2ns) 1,000 mls @ 100 mls/hr IV .Q10H [facility] Last Admin: 07/24/17 06:59 Dose: 100 mls/hr Insulin Human Regular (Novolin R) 0 unit SC ACHS [facility] PRN Reason: Protocol Last Admin: 07/24/17 12:03 Dose: 3 unit Mirtazapine (Remeron) 30 mg PO HS [facility] Ondansetron HCl (Zofran Inj) 4 mg IVP ACTID [facility] Stop: 07/25/17 07:31 Last Admin: 07/24/17 12:04 Dose: 4 mg Pantoprazole Sodium (Protonix Ec Tab) 40 mg PO BID [facility] Last Admin: 07/24/17 09:36 Dose: 40 mg Quetiapine Fumarate (Seroquel) 50 mg PO HS [facility] Simethicone (Mylicon Chew Tab) 80 mg PO Q6H PRN PRN Reason: GI distress Last Admin: 07/24/17 00:49 Dose: 80 mg Sucralfate (Carafate Oral Susp) 1 gm PO QID [facility] Last Admin: 07/24/17 09:36 Dose: 1 gm Tramadol HCl (Ultram) 50 mg PO Q6 PRN PRN Reason: Pain, moderate (4-7) Last Admin: 07/24/17 00:47 Dose: 50 mg Physical Exam - Constitutional Appears: Non-toxic, No Acute Distress - Extremities Exam Additional comments: lower extremity focused exam: Vasc: DP and PT pulses palpable 2/4 b/l. CFT < 3 seconds to all digits b/l. Skin temperature warm to warm from proximal to distal b/l. Neuro: Gross sensation intact b/l. Derm: Skin is diffusely xerotic. No open lesions noted. Nails 1-5 b/l are thickened, elongated, discolored, dystrophic. Webspaces 1-4 b/l are are intact with debris. Ortho: Tenderness noted on palpation to nails beds 1-5 b/l. - Neurological Exam Neurological exam: Alert, Oriented x3 - Psychiatric Exam Psychiatric exam: Normal Affect, Normal Mood Results - Vital Signs Recent Vital Signs: Last Vital Signs Temp 98.4 F 07/24/17 08:00 Pulse 70 07/24/17 08:00 Resp 20 07/24/17 08:00 BP 130/86 07/24/17 08:00 Pulse Ox 99 07/24/17 08:00 - Labs Result Diagrams: 07/24/17 07:57 07/24/17 07:49 Labs: Laboratory Results - last 24 hr 07/23/17 07/23/17 07/23/17 09:13 16:25 16:39 WBC RBC Hgb Hct MCV MCH MCHC RDW Plt Count MPV Neut % (Auto) Lymph % (Auto) [place] % (Auto) Eos % (Auto) Baso % (Auto) Neut # Lymph # [place] # Eos # Baso # Puncture Site Right rad pCO2 32 L pO2 142 H HCO3 26.9 ABG pH 7.50 H ABG Total CO2 26.0 ABG O2 Saturation 99.1 H ABG Base Excess 2.4 [place] Test Na ABG Potassium 2.8 L A-a O2 Difference -32.0 Respiratory Index -0.2 Glucose 184 H Lactate 1.0 FiO2 21.0 Sodium 142 136.0 Potassium 2.7 L Chloride 96 L 102.0 Carbon Dioxide 36 H Anion Gap 13 BUN 4 L Creatinine 0.5 L Est GFR ( Amer) > 60 Est GFR (Non-Af Amer) > 60 POC Glucose (mg/dL) Random Glucose 78 Calcium 9.1 Phosphorus Magnesium 1.7 Total Bilirubin AST ALT Alkaline Phosphatase Total Protein Albumin Globulin Albumin/Globulin Ratio Arterial Blood Potassium 2.8 L HIV 1&2 Antibody Screen Negative 07/23/17 07/23/17 07/23/17 16:39 16:39 17:44 WBC 4.4 L RBC 5.37 Hgb 15.8 Hct 46.7 MCV 86.9 MCH 29.3 MCHC 33.8 RDW 13.8 Plt Count 233 MPV 9.0 Neut % (Auto) 66.9 Lymph % (Auto) 21.6 [place] % (Auto) 9.8 Eos % (Auto) 0.6 Baso % (Auto) 1.1 Neut # 2.9 Lymph # 0.9 L [place] # 0.4 Eos # 0.0 Baso # 0.0 Puncture Site pCO2 pO2 HCO3 ABG pH ABG Total CO2 ABG O2 Saturation ABG Base Excess [place] Test ABG Potassium A-a O2 Difference Respiratory Index Glucose Lactate FiO2 Sodium 137 Potassium 2.9 L Chloride 97 L Carbon Dioxide 29 Anion Gap 14 BUN 5 L Creatinine 0.5 L Est GFR ( Amer) > 60 Est GFR (Non-Af Amer) > 60 POC Glucose (mg/dL) 174 H Random Glucose 189 H Calcium 8.7 Phosphorus Magnesium 1.6 Total Bilirubin 0.9 AST 17 D ALT 31 Alkaline Phosphatase 74 Total Protein 7.6 Albumin 3.9 Globulin 3.7 Albumin/Globulin Ratio 1.1 Arterial Blood Potassium HIV 1&2 Antibody Screen 07/23/17 07/23/17 07/24/17 21:18 23:02 06:41 WBC RBC Hgb Hct MCV MCH MCHC RDW Plt Count MPV Neut % (Auto) Lymph % (Auto) [place] % (Auto) Eos % (Auto) Baso % (Auto) Neut # Lymph # [place] # Eos # Baso # Puncture Site pCO2 pO2 HCO3 ABG pH ABG Total CO2 ABG O2 Saturation ABG Base Excess [place] Test ABG Potassium A-a O2 Difference Respiratory Index Glucose Lactate FiO2 Sodium 133 Potassium 3.1 L Chloride 95 L Carbon Dioxide 27 Anion Gap 15 BUN 6 L Creatinine 0.5 L Est GFR ( Amer) > 60 Est GFR (Non-Af Amer) > 60 POC Glucose (mg/dL) 228 H 286 H Random Glucose 322 H Calcium 8.3 L Phosphorus Magnesium Total Bilirubin AST ALT Alkaline Phosphatase Total Protein Albumin Globulin Albumin/Globulin Ratio Arterial Blood Potassium HIV 1&2 Antibody Screen 07/24/17 07/24/17 07/24/17 07:49 07:57 11:42 WBC 3.8 L RBC 5.04 Hgb 14.9 Hct 43.9 MCV 87.2 MCH 29.5 MCHC 33.8 RDW 14.0 Plt Count 222 MPV 9.3 Neut % (Auto) 65.6 Lymph % (Auto) 22.9 [place] % (Auto) 9.9 Eos % (Auto) 0.6 Baso % (Auto) 1.0 Neut # 2.5 Lymph # 0.9 L [place] # 0.4 Eos # 0.0 Baso # 0.0 Puncture Site pCO2 pO2 HCO3 ABG pH ABG Total CO2 ABG O2 Saturation ABG Base Excess [place] Test ABG Potassium A-a O2 Difference Respiratory Index Glucose Lactate FiO2 Sodium 135 Potassium 3.7 Chloride 95 L Carbon Dioxide 27 Anion Gap 18 BUN 5 L Creatinine 0.5 L Est GFR ( Amer) > 60 Est GFR (Non-Af Amer) > 60 POC Glucose (mg/dL) 297 H Random Glucose 345 H Calcium 8.2 L Phosphorus 3.0 Magnesium 1.7 Total Bilirubin 1.0 AST 14 L ALT 32 Alkaline Phosphatase 71 Total Protein 7.0 Albumin 3.7 Globulin 3.3 Albumin/Globulin Ratio 1.1 Arterial Blood Potassium HIV 1&2 Antibody Screen Assessment & Plan - Assessment and Plan (Free Text) Assessment: 26 year old male with thickened, elongated, painful toenails 1-10 Plan: patient examined and evaluated discussed in detail with attending, Dr. Ram labs, chart, vitals reviewed nails 1-10 were debrided in thickness and length without incident lotion applied to feet instructed patient to apply lotion to feet daily, sparing the webspaces discussed diabetic foot education and the importance of checking the feet daily patient to f/u in podiatry clinic in 3 months thank you for allowing us to participate in the care for this patient please re-consult as needed
--- NOTE | 2017-07-24 13:28 | CP.PCM.PN ---
<Olga Andre - Last Filed: 07/24/17 13:55> Subjective - Date & Time of Evaluation Date of Evaluation: 07/24/17 Time of Evaluation: 10:00 - Subjective Subjective: Medicine Note for Hospitalist Service - Dr. Dwight Romero Patient was seen and examined at bedside. Patient reports he continues to have abdominal pain and nausea especially when he tries to eat. Admitted to having a bowel movement on Monday, but nothing since, since he has not been able to tolerate anything PO. Denied fever, chills, headache, chest pain, SOB, v/d/c, or urinary symptoms. Objective - Vital Signs/Intake and Output Vital Signs (last 24 hours): Temp Pulse Resp BP Pulse Ox 98.4 F 69 20 130/86 98 07/24/17 08:00 07/24/17 11:57 07/24/17 08:00 07/24/17 08:00 07/24/17 11:57 Intake and Output: 07/24/17 07/24/17 06:59 18:59 Intake Total 620 Output Total 500 Balance 120 - Medications Medications: Current Medications Acetaminophen (Tylenol 325mg Tab) 650 mg PO TID PRN PRN Reason: Pain, Mild (1-3) Last Admin: 07/23/17 00:17 Dose: 650 mg Buspirone HCl (Buspar) 10 mg PO BID PRN PRN Reason: Anxiety Docusate Sodium (Colace) 100 mg PO BID [facility] Last Admin: 07/24/17 09:36 Dose: 100 mg Ergocalciferol (Drisdol 50,000 Intl Units Cap) 1 cap PO Q7D [facility] Last Admin: 07/22/17 00:08 Dose: 1 cap Escitalopram Oxalate (Lexapro) 20 mg PO DAILY [facility] Last Admin: 07/22/17 10:02 Dose: 20 mg Famotidine (Pepcid) 20 mg PO BID [facility] Last Admin: 07/22/17 17:57 Dose: 20 mg Hydroxyzine HCl (Atarax) 25 mg PO Q6 PRN PRN Reason: Agitation Last Admin: 07/20/17 07:14 Dose: 25 mg Potassium Chloride/Dextrose/Sod Cl (Potassium Chl 40 Meq In D5-1/2ns) 1,000 mls @ 100 mls/hr IV .Q10H [facility] Last Admin: 07/24/17 06:59 Dose: 100 mls/hr Insulin Human Regular (Novolin R) 0 unit SC ACHS [facility] PRN Reason: Protocol Last Admin: 07/24/17 12:03 Dose: 3 unit Mirtazapine (Remeron) 30 mg PO HS [facility] Ondansetron HCl (Zofran Inj) 4 mg IVP ACTID [facility] Stop: 07/25/17 07:31 Last Admin: 07/24/17 12:04 Dose: 4 mg Pantoprazole Sodium (Protonix Ec Tab) 40 mg PO BID [facility] Last Admin: 07/24/17 09:36 Dose: 40 mg Quetiapine Fumarate (Seroquel) 50 mg PO HS [facility] Simethicone (Mylicon Chew Tab) 80 mg PO Q6H PRN PRN Reason: GI distress Last Admin: 07/24/17 00:49 Dose: 80 mg Sucralfate (Carafate Oral Susp) 1 gm PO QID [facility] Last Admin: 07/24/17 09:36 Dose: 1 gm Tramadol HCl (Ultram) 50 mg PO Q6 PRN PRN Reason: Pain, moderate (4-7) Last Admin: 07/24/17 00:47 Dose: 50 mg - Labs Labs: 07/24/17 07:57 07/24/17 07:49 - Additional Findings Additional findings: - Constitutional Appears: No Acute Distress, Unkempt - Head Exam Head Exam: NORMAL INSPECTION, NORMOCEPHALIC - Eye Exam Eye Exam: EOMI, Normal appearance, PERRL - ENT Exam ENT Exam: Mucous Membranes Dry - Respiratory Exam Respiratory Exam: Clear to Auscultation Bilateral, NORMAL BREATHING PATTERN. absent: Wheezes - Cardiovascular Exam Cardiovascular Exam: REGULAR RHYTHM, RRR, +S1, +S2 - GI/Abdominal Exam GI & Abdominal Exam: Normal Bowel Sounds, Soft. absent: Distended, Tenderness - Extremities Exam Extremities exam: Positive for: normal inspection, pedal pulses present. Negative for: pedal edema, tenderness - Neurological Exam Neurological exam: Alert, Oriented x3 - Psychiatric Exam Psychiatric exam: Normal Affect, Normal Mood - Skin Skin Exam: Dry, Intact, Normal Color, Warm Assessment and Plan - Assessment and Plan (Free Text) Plan: IDDM Nausea and Abdominal Pain Endocrinology consulted- Dr. Moon - help appreciated CLD - will advance as tolerated CT Abdomen and Pelvis with PO contrast- pending patient's tolerance and compliance Encouraged patient to eat Labs: A1C - 13.1 (07/20) Medications: D5 1/2 NS with K - 100cc/hr Lantus 12 unit SC QHS - continue to HOLD until appetite returns, ISS - low Gastritis GI was consulted - Dr. Troy - help appreciated Seen on EGD on 07/20/17 Electrolyte Imbalance Continue to monitor Potassium, Phosphorus, and Magnesium Prolonged QTc interval Secondary to psych medications - which are on hold Initial QTc was 444 on EKG subsequent QTc intervals was 440 Continue to monitor Hx Chest Pain Cardiology consulted - Dr. Dickerson- help appreciated ECHO: LVEF 75% Stress test performed - pending results Substance Abuse Disorder UDS - + cocaine and cannabinoids Schizophrenia, bipolar disorder anxiety disorder, depression Management by Psych These medications are on hold due to prolonged QTc interval Onychomycosis Podiatry consulted - seen by Dr. Montenegro Prophylactic Measures GI PPX: Protonix 40mg PO BID, Sucralfate 1 gm PO QID DVT PPX: encourage ambulation Liquid Diet DW Thai Cardenas DO, PGY-1 <Misbah Romero - Last Filed: 07/24/17 20:28> Objective - Vital Signs/Intake and Output Vital Signs (last 24 hours): Temp Pulse Resp BP Pulse Ox 98.1 F 81 20 147/95 H 100 07/24/17 15:10 07/24/17 15:10 07/24/17 15:10 07/24/17 15:10 07/24/17 15:10 - Medications Medications: Current Medications Acetaminophen (Tylenol 325mg Tab) 650 mg PO TID PRN PRN Reason: Pain, Mild (1-3) Last Admin: 07/23/17 00:17 Dose: 650 mg Buspirone HCl (Buspar) 10 mg PO BID PRN PRN Reason: Anxiety Docusate Sodium (Colace) 100 mg PO BID [facility] Last Admin: 07/24/17 17:53 Dose: 100 mg Ergocalciferol (Drisdol 50,000 Intl Units Cap) 1 cap PO Q7D [facility] Last Admin: 07/22/17 00:08 Dose: 1 cap Escitalopram Oxalate (Lexapro) 20 mg PO DAILY [facility] Last Admin: 07/22/17 10:02 Dose: 20 mg Famotidine (Pepcid) 20 mg PO BID [facility] Last Admin: 07/22/17 17:57 Dose: 20 mg Hydroxyzine HCl (Atarax) 25 mg PO Q6 PRN PRN Reason: Agitation Last Admin: 07/20/17 07:14 Dose: 25 mg Potassium Chloride/Dextrose/Sod Cl (Potassium Chl 40 Meq In D5-1/2ns) 1,000 mls @ 100 mls/hr IV .Q10H [facility] Last Admin: 07/24/17 18:01 Dose: 100 mls/hr Insulin Human Regular (Novolin R) 0 unit SC ACHS [facility] PRN Reason: Protocol Last Admin: 07/24/17 17:53 Dose: 3 unit Mirtazapine (Remeron) 30 mg PO HS [facility] Ondansetron HCl (Zofran Inj) 4 mg IVP ACTID [facility] Stop: 07/25/17 07:31 Last Admin: 07/24/17 17:54 Dose: 4 mg Pantoprazole Sodium (Protonix Ec Tab) 40 mg PO BID [facility] Last Admin: 07/24/17 17:54 Dose: 40 mg Quetiapine Fumarate (Seroquel) 50 mg PO HS [facility] Simethicone (Mylicon Chew Tab) 80 mg PO Q6H PRN PRN Reason: GI distress Last Admin: 07/24/17 00:49 Dose: 80 mg Sucralfate (Carafate Oral Susp) 1 gm PO QID [facility] Last Admin: 07/24/17 17:53 Dose: 1 gm Tramadol HCl (Ultram) 50 mg PO Q6 PRN PRN Reason: Pain, moderate (4-7) Last Admin: 07/24/17 15:33 Dose: 50 mg - Labs Labs: 07/24/17 07:57 07/24/17 07:49 Attending/Attestation - Attestation I have personally seen and examined this patient.: Yes I have fully participated in the care of the patient.: Yes I have reviewed all pertinent clinical information, including history, physical exam and plan: Yes Notes (Text): 07/24/17 20:20 Patient was seen and examined at 9:30 AM 07/24/17 669 B Exam, Assessment, and Plan were thoroughly gone over with the resident. Also on ROS: Nausea this morning but NO vomiting Moved his bowels this morning and stool was soft NO burning/pain with urination Also on Exam: General: had sheet over his head when I walked in. Unenthusiastic about answering ROS questions or exam. He was encourage to eat and agreed to having vegatable broth GI: RUQ and RLQ pain with deep palpation but NO guarding/rebound tenderness, BSx4, Soft, ND, NO HSM Extremities: Onychomycosis of Bilateral Feet Nails Assessments: 1). IDDM 2). Gastritis 3). Electrolyte Imbalance 4). Prolonged QTc: Holding Seroquel, Remeron, and Hydroxyzine 5). Chest Pain 6). Substance Abuse Disorder: Cocaine and Marijuana 7). Schizophrenia/Bipolar Disorder/Anxiety/Depression 8). Onychomycosis of Bilateral Feet Nails Disposition: F/U repeat EKG for QTc and CT Abdomen/Pelvis and if these are unremarkable, then patient will be transferred back to Psychiatry for further evaluation and treatment of Substance Abuse Disorder (Cocaine and Marijuana) and Schizophrenia/Bipolar Disorder/Anxiety/Depression. Psychiatry will have to consider alternatives to Seroquel, Remeron, and Hydroxyzine considering the history of prolonged QTc. Misbah Romero D.O.
[2017-07-24] MEDS ORDERED: Iodixanol 320 MG/ML 100 ML BOTTLE IV ONE (16:35)
--- NOTE | 2017-07-24 19:07 | CT ---
EXAM: CT Abdomen and Pelvis With Intravenous Contrast EXAM DATE/TIME: 07/24/2017 4:30 PM CLINICAL HISTORY: 26 years old, male; Pain; Abdominal pain; Additional info: Ruq and rlq pain. HX of cocaine abuse gastritis TECHNIQUE: Axial computed tomography images of the abdomen and pelvis with intravenous contrast. All CT scans at this facility use one or more dose reduction techniques, viz.: automated exposure control; ma/kV adjustment per patient size (including targeted exams where dose is matched to indication; i.e. head); or iterative reconstruction technique. Coronal and sagittal reformatted images were created and reviewed. CONTRAST: 100 mL of VISI administered intravenously. COMPARISON: CT - ABD PELVIS IV CONTRAST 04/09/16 images not available. Correlation is made with a report dated 04/09/16 FINDINGS: Lower thorax: Heart size is normal. There is a small hiatal hernia. Lung bases are hyperinflated. There is no focal consolidation ABDOMEN: Liver: There is fatty infiltration of the liver. Gallbladder and bile ducts: unremarkable Pancreas: unremarkable Spleen: unremarkable Adrenals: unremarkable Kidneys and ureters: unremarkable Stomach and bowel: Stomach is partially distended. There is mucosal enhancement greatest in the distal body and antrum of the stomach. There is mild antral wall prominence. Rotation is normal. There is no small bowel obstruction. There is contrast in collapsed distal small bowel. There is contrast in the terminal ileum and cecum. Appendix is partially distended with air. Colon is incompletely distended which limits evaluation. Appendix: See stomach and bowel PELVIS: Bladder: unremarkable Reproductive: Seminal vesicles and prostate are not optimally demonstrated. The ABDOMEN and PELVIS: Intraperitoneal space: There is no free air. There is a small amount of fluid in the pelvis. Bones/joints: There is Schmorl's node with superior endplate deformity at T11. Soft tissues: There is a paucity of subcutaneous fat. There is a paucity of intra-abdominal fat. Vasculature: Vascular structures are unremarkable. Lymph nodes: There is no pathologic adenopathy. IMPRESSION: No acute solid visceral abnormality, no bowel obstruction; distal body and antral mucosal enhancement and mild wall thickening suggests possible gastritis; trace fluid in the pelvis; no CT findings of appendicitis Additional findings as described above.
--- NOTE | 2017-07-24 19:10 | CARD ---
APPROVED REPORT EKG Measurement Heart [id number] <Conclusion> Normal sinus rhythm Nonspecific T wave abnormality Abnormal ECG
[2017-07-25] MEDS: Potassium Chl 40 mEq in D5-1/2 1,000 ML IV SCH (01:00)
[2017-07-25] MEDS ORDERED: DiphenhydrAMINE 50 mg/ml Inj IVP STA (01:36)
--- NOTE | 2017-07-25 07:13 | CP.PCM.PN ---
<Olga Andre - Last Filed: 07/25/17 16:57> Subjective - Date & Time of Evaluation Date of Evaluation: 07/25/17 Time of Evaluation: 07:00 - Subjective Subjective: Medicine Note for Hospitalist Service - Dr. Dwight Romero Patient was seen and examined at bedside. Patient reports he continues to have abdominal pain but does not want to attempt to eat food. He tolerated juice and water, but continues to have nausea. Denied fever, chills, headache, chest pain , SOB, v/d/c, or urinary symptoms. Objective - Vital Signs/Intake and Output Vital Signs (last 24 hours): Temp Pulse Resp BP Pulse Ox 98.2 F 88 20 113/76 97 07/24/17 23:55 07/24/17 23:55 07/24/17 23:55 07/24/17 23:55 07/24/17 23:55 Intake and Output: 07/25/17 07/25/17 06:59 18:59 Intake Total 1690 Output Total 700 Balance 990 - Medications Medications: Current Medications Acetaminophen (Tylenol 325mg Tab) 650 mg PO TID PRN PRN Reason: Pain, Mild (1-3) Last Admin: 07/23/17 00:17 Dose: 650 mg Buspirone HCl (Buspar) 10 mg PO BID PRN PRN Reason: Anxiety Docusate Sodium (Colace) 100 mg PO BID [facility] Last Admin: 07/24/17 17:53 Dose: 100 mg Ergocalciferol (Drisdol 50,000 Intl Units Cap) 1 cap PO Q7D [facility] Last Admin: 07/22/17 00:08 Dose: 1 cap Escitalopram Oxalate (Lexapro) 20 mg PO DAILY [facility] Last Admin: 07/22/17 10:02 Dose: 20 mg Famotidine (Pepcid) 20 mg PO BID [facility] Last Admin: 07/22/17 17:57 Dose: 20 mg Hydroxyzine HCl (Atarax) 25 mg PO Q6 PRN PRN Reason: Agitation Last Admin: 07/20/17 07:14 Dose: 25 mg Potassium Chloride/Dextrose/Sod Cl (Potassium Chl 40 Meq In D5-1/2ns) 1,000 mls @ 100 mls/hr IV .Q10H [facility] Last Admin: 07/25/17 01:00 Dose: Not Given Insulin Human Regular (Novolin R) 0 unit SC ACHS [facility] PRN Reason: Protocol Last Admin: 07/24/17 23:30 Dose: Not Given Mirtazapine (Remeron) 30 mg PO HS [facility] Ondansetron HCl (Zofran Inj) 4 mg IVP ACTID [facility] Stop: 07/25/17 07:31 Last Admin: 07/24/17 17:54 Dose: 4 mg Pantoprazole Sodium (Protonix Ec Tab) 40 mg PO BID [facility] Last Admin: 07/24/17 17:54 Dose: 40 mg Quetiapine Fumarate (Seroquel) 50 mg PO HS [facility] Simethicone (Mylicon Chew Tab) 80 mg PO Q6H PRN PRN Reason: GI distress Last Admin: 07/24/17 00:49 Dose: 80 mg Sucralfate (Carafate Oral Susp) 1 gm PO QID [facility] Last Admin: 07/24/17 23:18 Dose: Not Given Tramadol HCl (Ultram) 50 mg PO Q6 PRN PRN Reason: Pain, moderate (4-7) Last Admin: 07/24/17 15:33 Dose: 50 mg - Labs Labs: 07/24/17 07:57 07/24/17 07:49 - Additional Findings Additional findings: - Constitutional Appears: No Acute Distress, Unkempt - Head Exam Head Exam: NORMAL INSPECTION, NORMOCEPHALIC - Eye Exam Eye Exam: EOMI, Normal appearance, PERRL - ENT Exam ENT Exam: Mucous Membranes Dry - Respiratory Exam Respiratory Exam: Clear to Auscultation Bilateral, NORMAL BREATHING PATTERN. absent: Wheezes - Cardiovascular Exam Cardiovascular Exam: REGULAR RHYTHM, RRR, +S1, +S2 - GI/Abdominal Exam GI & Abdominal Exam: Normal Bowel Sounds, Soft. RUQ and RLQ pain with deep palpation but NO guarding. absent: Distended - Extremities Exam Extremities exam: Positive for: normal inspection, pedal pulses present. Onychomycosis of Bilateral Feet Nails. Negative for: pedal edema, tenderness - Neurological Exam Neurological exam: Alert, Oriented x3 - Psychiatric Exam Psychiatric exam: Normal Affect, Normal Mood - Skin Skin Exam: Dry, Intact, Normal Color, Warm Assessment and Plan - Assessment and Plan (Free Text) Plan: IDDM Nausea and Abdominal Pain Endocrinology consulted- Dr. Moon - help appreciated CLD - will advance as tolerated CT Abdomen and Pelvis with PO contrast- unremarkable, no new findings when compared to CT done 04/08/17 Encouraged patient to eat Labs: A1C - 13.1 (07/20) Medications: D5 1/2 NS with K - 100cc/hr - now that the potassium levels have normalized, changed fluids to NS @100cc.hr Levemir 10 unit SC QHS, Novolin 3 units SC ACBLD - will continue to monitor Gastritis GI was consulted - Dr. Troy - help appreciated Seen on EGD on 07/20/17 Electrolyte Imbalance Continue to monitor Potassium, Phosphorus, and Magnesium Prolonged QTc interval Secondary to psych medications - which are on hold Initial QTc was 444 on 07/22 EKG subsequent QTc intervals was 475 on 07/23, repeat was 440 on 07/24, repeat today 07/25 was 435. Normal QTc intervals for males < 440. All psych meds were placed on hold since 07/22/17 Continue to monitor Hx Chest Pain Cardiology consulted - Dr. Dickerson- help appreciated ECHO: LVEF 75% Stress test performed - pending results Substance Abuse Disorder UDS - + cocaine and cannabinoids Schizophrenia, bipolar disorder anxiety disorder, depression Management by Psych These medications are on hold due to prolonged QTc interval Spoke to Dr. Lozano - he recommends once the patient is medically cleared, he can be discharged. As per psych, since the patient is choosing not to eat, causing dehydration and electrolyte imbalances, he will need to continue seeking medical attention. He will be provided with a list of outpatient places he can visit to assistance with his depression and other psychiatric conditions. Medicine Team has stabilized the patient, we are pending recommendations of what psych medications to discharge the patient on since all psych medications were placed on hold due to the prolonged QTc interval as well as, a list of outpatient places this patient can follow up with for further psychiatric care. Onychomycosis Podiatry consulted - seen by Dr. Montenegro Prophylactic Measures GI PPX: Protonix 40mg PO BID, Sucralfate 1 gm PO QID DVT PPX: encourage ambulation Liquid Diet Disposition: Pending Psychiatry recommendations for alternatives to Seroquel, Remeron, and Hydroxyzine considering the history of prolonged QTc. As per psych , he will not be transferred to psych. Once medically cleared he can be discharged. Thai Jaime Dr., DO, PGY-1 <Misbah Romero - Last Filed: 07/25/17 19:02> Objective - Vital Signs/Intake and Output Vital Signs (last 24 hours): Temp Pulse Resp BP Pulse Ox 97.9 F 82 20 109/67 96 07/25/17 15:28 07/25/17 15:28 07/25/17 15:28 07/25/17 15:28 07/25/17 15:28 Intake and Output: 07/25/17 07/25/17 06:59 18:59 Intake Total 1690 900 Output Total 700 Balance 990 900 - Medications Medications: Current Medications Acetaminophen (Tylenol 325mg Tab) 650 mg PO TID PRN PRN Reason: Pain, moderate (4-7) Buspirone HCl (Buspar) 10 mg PO BID PRN PRN Reason: Anxiety Dextrose (Dextrose 50% Inj) 0 ml IV STAT PRN; Protocol PRN Reason: Hypoglycemia Protocol Dextrose (Glutose 15) 0 gm PO ONCE PRN; Protocol PRN Reason: Hypoglycemia Protocol Docusate Sodium (Colace) 100 mg PO BID [facility] Last Admin: 07/25/17 17:15 Dose: 100 mg Ergocalciferol (Drisdol 50,000 Intl Units Cap) 1 cap PO Q7D [facility] Last Admin: 07/22/17 00:08 Dose: 1 cap Escitalopram Oxalate (Lexapro) 20 mg PO DAILY [facility] Last Admin: 07/22/17 10:02 Dose: 20 mg Famotidine (Pepcid) 20 mg PO BID [facility] Last Admin: 07/22/17 17:57 Dose: 20 mg Glucagon (Glucagen Diagnostic Kit) 0 mg IM STAT PRN; Protocol PRN Reason: Hypoglycemia Protocol Hydroxyzine HCl (Atarax) 25 mg PO Q6 PRN PRN Reason: Agitation Last Admin: 07/20/17 07:14 Dose: 25 mg Sodium Chloride (Sodium Chloride 0.9%) 1,000 mls @ 100 mls/hr IV .Q10H [facility] Last Admin: 07/25/17 11:11 Dose: 100 mls/hr Dextrose (Dextrose 5% In Water 1000 Ml) 1,000 mls @ 0 mls/hr IV .Q0M PRN; Protocol; Per Protocol PRN Reason: Hypoglycemia Protocol Insulin Detemir (Levemir) 10 unit SC HS [facility] Insulin Human Regular (Novolin R) 3 unit SC ACB [facility] Insulin Human Regular (Novolin R) 3 unit SC ACD [facility] Last Admin: 07/25/17 17:16 Dose: 3 unit Insulin Human Regular (Novolin R) 3 unit SC ACL [facility] Magnesium Oxide (Mag-Ox) 400 mg PO BID [facility] Stop: 07/26/17 10:01 Last Admin: 07/25/17 17:15 Dose: 400 mg Mirtazapine (Remeron) 30 mg PO HS [facility] Ondansetron HCl (Zofran Inj) 4 mg IVP Q8 PRN PRN Reason: Nausea/Vomiting Pantoprazole Sodium (Protonix Ec Tab) 40 mg PO BID [facility] Last Admin: 07/25/17 17:16 Dose: 40 mg Quetiapine Fumarate (Seroquel) 50 mg PO HS [facility] Simethicone (Mylicon Chew Tab) 80 mg PO Q6H PRN PRN Reason: GI distress Last Admin: 07/24/17 00:49 Dose: 80 mg Sucralfate (Carafate Oral Susp) 1 gm PO QID [facility] Last Admin: 07/25/17 17:15 Dose: 1 gm - Labs Labs: 07/25/17 07:41 07/25/17 07:41 Attending/Attestation - Attestation I have personally seen and examined this patient.: Yes I have fully participated in the care of the patient.: Yes I have reviewed all pertinent clinical information, including history, physical exam and plan: Yes Notes (Text): 07/25/17 18:57 Patient was seen and examined at 5:15 PM 07/25/17 669 B Exam, Assessment, and Plan were thoroughly gone over with the resident. Also on ROS: Nausea that continues for patient States to me that he is NOT tolerating any food (please see descripency in what he revealed to the resident above) Moved his bowels this morning and stool was soft NO burning/pain with urination Also on Exam: General: again had sheet over his head when I walked in. Unenthusiastic about answering ROS questions or exam. He was encourage to eat and agreed to continue to have broth and ensure shakes. He was also instructed to ask for Zofran prior to eating. This has been ordered and I explained this to Nurse Ailin who was caring for patient at the time of my exam. Assessments: 1). IDDM: Added Levemir 10 units SC HS and Regular Insulin 3 Units SC AC Meals based upon 24 hour ISS requirement 2). Gastritis 3). Electrolyte Imbalance 4). Prolonged QTc: Holding Seroquel, Remeron, and Hydroxyzine. QTc has normalized 5). Chest Pain 6). Substance Abuse Disorder: Cocaine and Marijuana 7). Schizophrenia/Bipolar Disorder/Anxiety/Depression 8). Onychomycosis of Bilateral Feet Nails Disposition: I spoke with Psychiatrist Dr. Lozano earlier today and expressed my concerns about discharging this patient with Substance Abuse Disorder ( Cocaine and Marijuana) and Schizophrenia/Bipolar Disorder/Anxiety/Depression without any medications for these conditions. Dr. Lozano stated that he will see the patient again and make further recommendations. Psychiatry will have to consider alternatives to Seroquel, Remeron, and Hydroxyzine considering the history of prolonged QTc. Misbah Romero D.O.
[2017-07-25 07:55] LABS: BASO % 0.8 % (0.0-2.0); EOS % 0.9 % (0.0-4.0); HEMATOCRIT 46.3 % (35.0-51.0); LYMPH # 1.1 K/uL (1.0-4.3); LYMPH % 22.3 % (20.0-40.0); MEAN CELL VOLUME 88.4 fL (80.0-94.0); MEAN CORPUSCULAR HEMOGLOBIN 29.4 pg (27.0-31.0); MEAN CORPUSCULAR HGB CONC 33.3 g/dL (33.0-37.0); MEAN PLATELET VOLUME 9.3 fL (7.2-11.7); MONO # 0.4 K/uL (0.0-0.8); MONO % 8.6 % (0.0-10.0); NRBC % 0.2 % (0.0-2.0); RED CELL DISTRIBUTION WIDTH 13.7 % (11.5-14.5); WHITE BLOOD COUNT 4.9 K/uL (4.8-10.8)
[2017-07-25] MEDS: (Novolin R) Insulin Human Regular 100 units/ml vial SC SCH ×2 (08:23→11:54)
[2017-07-25 08:37] LABS: ALB/GLOB RATIO 1.2 (1.0-2.1); ALKALINE PHOSPHATASE 81 U/L (38-126); ALT/SGPT 30 U/L (21-72); AST/SGOT 13 U/L (17-59); BILIRUBIN,TOTAL 1.1 mg/dL (0.2-1.3); BLOOD UREA NITROGEN 3 mg/dL (9-20); CALCIUM 8.6 mg/dl (8.6-10.4); CARBON DIOXIDE 19 mmol/L (22-30); CHLORIDE 94 mmol/L (98-107); GFR AFRICAN-AMERICAN > 60; GLUCOSE,RANDOM 359 mg/dL (75-110); MAGNESIUM 1.4 mg/dL (1.6-2.3); PHOSPHOROUS 2.8 mg/dL (2.5-4.5); SODIUM 132 mmol/L (132-148); TOTAL PROTEIN 7.3 g/dL (6.3-8.3)
[2017-07-25] MEDS: Pantoprazole 40 mg EC Tab PO SCH ×2 (10:57→17:16)
[2017-07-25] MEDS: Magnesium Oxide 400 mg Tab UD PO SCH ×2 (10:57→17:15)
[2017-07-25] MEDS: Sucralfate 1 gm/10 ml Oral Susp UD PO SCH ×4 (10:57→22:20)
[2017-07-25] MEDS: Sodium Chloride 0.9% 1,000 ML IV SCH ×3 (11:11→22:18)
[2017-07-25] MEDS ORDERED: Glucagon Recombinant 1 mg Inj IM PRN (14:42)
[2017-07-25] MEDS ORDERED: Dextrose 50% SYRINGE Inj (50 ml) IV PRN (14:42)
[2017-07-25] MEDS ORDERED: (Novolin R) Insulin Human Regular 100 units/ml vial SC SCH (16:30)
[2017-07-25] MEDS ORDERED: Insulin Detemir 100 units/ml Vial (Levemir) SC SCH (22:00)
[2017-07-26] MEDS ORDERED: DiphenhydrAMINE 50 mg/ml Inj IVP STA (00:18)
[2017-07-26 00:54] VITALS: TEMP 98.5
[2017-07-26] MEDS: Sodium Chloride 0.9% 1,000 ML IV SCH (06:20)
[2017-07-26] MEDS ORDERED: (Novolin R) Insulin Human Regular 100 units/ml vial SC SCH ×2 (07:30→11:30)
[2017-07-26 07:49] LABS: BASO % 0.7 % (0.0-2.0); EOS # 0.1 K/uL (0.0-0.7); EOS % 2.4 % (0.0-4.0); HEMATOCRIT 43.6 % (35.0-51.0); LYMPH # 1.6 K/uL (1.0-4.3); LYMPH % 34.5 % (20.0-40.0); MEAN CELL VOLUME 86.6 fL (80.0-94.0); MEAN CORPUSCULAR HEMOGLOBIN 29.4 pg (27.0-31.0); MONO # 0.6 K/uL (0.0-0.8); MONO % 12.8 % (0.0-10.0); NRBC % 0.2 % (0.0-2.0); RED CELL DISTRIBUTION WIDTH 13.5 % (11.5-14.5); WHITE BLOOD COUNT 4.8 K/uL (4.8-10.8)
[2017-07-26 08:00] VITALS: BP 127/86; PULSE 66; O2SAT 100
[2017-07-26 08:09] LABS: ALB/GLOB RATIO 1.5 (1.0-2.1); ALKALINE PHOSPHATASE 68 U/L (38-126); ALT/SGPT 27 U/L (21-72); AST/SGOT 15 U/L (17-59); BILIRUBIN,TOTAL 0.9 mg/dL (0.2-1.3); BLOOD UREA NITROGEN 3 mg/dL (9-20); CALCIUM 8.4 mg/dl (8.6-10.4); CARBON DIOXIDE 33 mmol/L (22-30); CHLORIDE 98 mmol/L (98-107); GFR AFRICAN-AMERICAN > 60; GLUCOSE,RANDOM 77 mg/dL (75-110); MAGNESIUM 1.7 mg/dL (1.6-2.3); PHOSPHOROUS 2.8 mg/dL (2.5-4.5); POTASSIUM 3.1 mmol/L (3.6-5.2); SODIUM 138 mmol/L (132-148); TOTAL PROTEIN 5.9 g/dL (6.3-8.3)
[2017-07-26] MEDS: Magnesium Oxide 400 mg Tab UD PO SCH (09:17)
[2017-07-26] MEDS: Sucralfate 1 gm/10 ml Oral Susp UD PO SCH ×2 (09:17→13:13)
[2017-07-26] MEDS: Pantoprazole 40 mg EC Tab PO SCH (09:17)
[2017-07-26] MEDS: Simethicone 80 mg Chewtab PO PRN (12:14)
--- NOTE | 2017-07-26 12:33 | CP.PCM.PN ---
Subjective - Date & Time of Evaluation Date of Evaluation: 07/26/17 Time of Evaluation: 10:00 - Subjective Subjective: Medicine Note for Hospitalist Service - Dr. Dwight Romero Patient was seen and examined at bedside. Patient asked for regular diet this morning, saying he is actually hungry. Denied fever, chills, headache, chest pain, SOB, v/d/c, or urinary symptoms. Objective - Vital Signs/Intake and Output Vital Signs (last 24 hours): Temp Pulse Resp BP Pulse Ox 98.5 F 66 20 127/86 100 07/26/17 07:59 07/26/17 07:59 07/26/17 07:59 07/26/17 07:59 07/26/17 07:59 Intake and Output: 07/26/17 07/26/17 06:59 18:59 Intake Total 1620 Output Total 700 Balance 920 - Medications Medications: Current Medications Acetaminophen (Tylenol 325mg Tab) 650 mg PO TID PRN PRN Reason: Pain, moderate (4-7) Buspirone HCl (Buspar) 10 mg PO BID PRN PRN Reason: Anxiety Dextrose (Dextrose 50% Inj) 0 ml IV STAT PRN; Protocol PRN Reason: Hypoglycemia Protocol Dextrose (Glutose 15) 0 gm PO ONCE PRN; Protocol PRN Reason: Hypoglycemia Protocol Docusate Sodium (Colace) 100 mg PO BID [facility] Last Admin: 07/26/17 09:25 Dose: Not Given Ergocalciferol (Drisdol 50,000 Intl Units Cap) 1 cap PO Q7D [facility] Last Admin: 07/22/17 00:08 Dose: 1 cap Escitalopram Oxalate (Lexapro) 20 mg PO DAILY [facility] Last Admin: 07/22/17 10:02 Dose: 20 mg Famotidine (Pepcid) 20 mg PO BID [facility] Last Admin: 07/22/17 17:57 Dose: 20 mg Glucagon (Glucagen Diagnostic Kit) 0 mg IM STAT PRN; Protocol PRN Reason: Hypoglycemia Protocol Hydroxyzine HCl (Atarax) 25 mg PO Q6 PRN PRN Reason: Agitation Last Admin: 07/20/17 07:14 Dose: 25 mg Sodium Chloride (Sodium Chloride 0.9%) 1,000 mls @ 100 mls/hr IV .Q10H [facility] Last Admin: 07/26/17 06:20 Dose: Not Given Dextrose (Dextrose 5% In Water 1000 Ml) 1,000 mls @ 0 mls/hr IV .Q0M PRN; Protocol; Per Protocol PRN Reason: Hypoglycemia Protocol Insulin Detemir (Levemir) 10 unit SC HS [facility] Last Admin: 07/25/17 22:19 Dose: 10 unit Insulin Human Regular (Novolin R) 3 unit SC ACB [facility] Last Admin: 07/26/17 08:16 Dose: 3 unit Insulin Human Regular (Novolin R) 3 unit SC ACD [facility] Last Admin: 07/25/17 17:16 Dose: 3 unit Insulin Human Regular (Novolin R) 3 unit SC ACL [facility] Last Admin: 07/26/17 12:08 Dose: 3 unit Mirtazapine (Remeron) 30 mg PO HS [facility] Ondansetron HCl (Zofran Inj) 4 mg IVP Q8 PRN PRN Reason: Nausea/Vomiting Last Admin: 07/25/17 19:09 Dose: 4 mg Pantoprazole Sodium (Protonix Ec Tab) 40 mg PO BID [facility] Last Admin: 07/26/17 09:17 Dose: 40 mg Quetiapine Fumarate (Seroquel) 50 mg PO HS [facility] Simethicone (Mylicon Chew Tab) 80 mg PO Q6H PRN PRN Reason: GI distress Last Admin: 07/26/17 12:14 Dose: 80 mg Sucralfate (Carafate Oral Susp) 1 gm PO QID [facility] Last Admin: 07/26/17 09:17 Dose: 1 gm - Labs Labs: 07/26/17 07:18 07/26/17 07:18 - Additional Findings Additional findings: - Constitutional Appears: No Acute Distress, Unkempt - Head Exam Head Exam: NORMAL INSPECTION, NORMOCEPHALIC - Eye Exam Eye Exam: EOMI, Normal appearance, PERRL - ENT Exam ENT Exam: Mucous Membranes Dry - Respiratory Exam Respiratory Exam: Clear to Auscultation Bilateral, NORMAL BREATHING PATTERN. absent: Wheezes - Cardiovascular Exam Cardiovascular Exam: REGULAR RHYTHM, RRR, +S1, +S2 - GI/Abdominal Exam GI & Abdominal Exam: Normal Bowel Sounds, Soft. RUQ and RLQ pain with deep palpation but NO guarding. absent: Distended - Extremities Exam Extremities exam: Positive for: normal inspection, pedal pulses present. Onychomycosis of Bilateral Feet Nails. Negative for: pedal edema, tenderness - Neurological Exam Neurological exam: Alert, Oriented x3 - Psychiatric Exam Psychiatric exam: Normal Affect, Normal Mood - Skin Skin Exam: Dry, Intact, Normal Color, Warm Assessment and Plan - Assessment and Plan (Free Text) Plan: IDDM Nausea and Abdominal Pain Endocrinology consulted- Dr. Moon - naty appreciated CLD - will advance as tolerated CT Abdomen and Pelvis with PO contrast- unremarkable, no new findings when compared to CT done 04/08/17 Encouraged patient to eat Labs: A1C - 13.1 (07/20) Medications: D5 1/2 NS with K - 100cc/hr - now that the potassium levels have normalized, changed fluids to NS @100cc.hr Levemir 10 unit SC QHS, Novolin 3 units SC ACBLD - will continue to monitor Gastritis GI was consulted - Dr. Troy - naty appreciated Seen on EGD on 07/20/17 Electrolyte Imbalance Continue to monitor Potassium, Phosphorus, and Magnesium Prolonged QTc interval Secondary to psych medications - which are on hold Initial QTc was 444 on 07/22 EKG subsequent QTc intervals was 475 on 07/23, repeat was 440 on 07/24, repeat today 07/25 was 435. Normal QTc intervals for males < 440. All psych meds were placed on hold since 07/22/17 Continue to monitor Hx Chest Pain Cardiology consulted - Dr. Dickerson- naty appreciated ECHO: LVEF 75% Stress test performed - pending results Substance Abuse Disorder UDS - + cocaine and cannabinoids Schizophrenia, bipolar disorder anxiety disorder, depression Management by Psych These medications are on hold due to prolonged QTc interval Spoke to Dr. Lozano - he recommends once the patient is medically cleared, he can be discharged. As per psych, since the patient is choosing not to eat, causing dehydration and electrolyte imbalances, he will need to continue seeking medical attention. He will be provided with a list of outpatient places he can visit to assistance with his depression and other psychiatric conditions. Medicine Team has stabilized the patient, we are pending recommendations of what psych medications to discharge the patient on since all psych medications were placed on hold due to the prolonged QTc interval as well as, a list of outpatient places this patient can follow up with for further psychiatric care. Onychomycosis Podiatry consulted - seen by Dr. Montenegro Prophylactic Measures GI PPX: Protonix 40mg PO BID, Sucralfate 1 gm PO QID DVT PPX: encourage ambulation Liquid Diet Disposition: Pending Psychiatry recommendations for alternatives to Seroquel, Remeron, and Hydroxyzine considering the history of prolonged QTc. As per psych , he will not be transferred to psych. Once medically cleared he can be discharged. Thai Jaime Dr., DO, PGY-1
--- NOTE | 2017-07-26 12:37 | PCM.PYCHPN ---
Psychiatric Progress Note - Psychiatric Progress Note Patient seen today, length of contact: 15 min Patient Chief Complaint: "I am feeling much better" Problems Identified/Issues Discussed: Pt seen and evaluated, chart seen and d/w staff. The patient reports reports improvement in his mood and reports improvement in the feelings of hopelessness or helplessness. He reports improvement in his sleep and appetite. He is taking medications and denies any side effects. Supportive therapy and psychoeducation were given. Met with the mother and family on the bedside. Medication Change: No Medical Record Reviewed: Yes Mental Status Examination - Cognitive Function Orientation: Person, Place, Situation, Time Memory: Intact Attention: WNL Concentration: WNL Association: WNL Fund of Knowledge: WNL - Mood Mood: Neutral - Affect Affect: Constricted - Speech Speech: Soft - Formal Thought Process Formal Thought Process: No Impairment - Suicidal Ideation Suicidal Ideation: No - Homicidal Ideation Homicidal Ideation: No Goal/Treatment Plan - Goal/Treatment Plan Need for Continued Stay: Other Progress Toward Problem(s) and Goals/Treatment Plan: CBT Psycho education Supportive therapy Lexapro 20 mg PO Daily Remeron 30 mg PO QHS D/C Seroquel 100 mg PO QHS Hydroxyzine prn Pt psychiatrically stable and clear for discharge. - Smoking Cessation Smoking Cessation Initiated: No
--- NOTE | 2017-07-26 13:15 | CP.PCM.DIS ---
<Olga Andre - Last Filed: 07/26/17 13:59> Provider - Provider Date of Admission: 07/21/17 16:26 Attending physician: Misbah Romero MD Time Spent in preparation of Discharge (in minutes): 55 Hospital Course - Lab Results Lab Results: Most Recent Lab Values WBC 4.8 K/uL (4.8-10.8) 07/26/17 07:18 RBC 5.04 Mil/uL (4.40-5.90) 07/26/17 07:18 Hgb 14.8 g/dL (12.0-18.0) 07/26/17 07:18 Hct 43.6 % (35.0-51.0) 07/26/17 07:18 MCV 86.6 fL (80.0-94.0) 07/26/17 07:18 MCH 29.4 pg (27.0-31.0) 07/26/17 07:18 MCHC 34.0 g/dL (33.0-37.0) 07/26/17 07:18 RDW 13.5 % (11.5-14.5) 07/26/17 07:18 Plt Count 220 K/uL (130-400) 07/26/17 07:18 MPV 9.0 fL (7.2-11.7) 07/26/17 07:18 Neut % (Auto) 49.6 % (50.0-75.0) L 07/26/17 07:18 Lymph % (Auto) 34.5 % (20.0-40.0) 07/26/17 07:18 Desha % (Auto) 12.8 % (0.0-10.0) H 07/26/17 07:18 Eos % (Auto) 2.4 % (0.0-4.0) 07/26/17 07:18 Baso % (Auto) 0.7 % (0.0-2.0) 07/26/17 07:18 Neut # 2.4 K/uL (1.8-7.0) 07/26/17 07:18 Lymph # 1.6 K/uL (1.0-4.3) 07/26/17 07:18 Desha # 0.6 K/uL (0.0-0.8) 07/26/17 07:18 Eos # 0.1 K/uL (0.0-0.7) 07/26/17 07:18 Baso # 0.0 K/uL (0.0-0.2) 07/26/17 07:18 Puncture Site Right rad 07/23/17 16:25 pCO2 32 mm/Hg (35-45) L 07/23/17 16:25 pO2 142 mm/Hg (80-100) H 07/23/17 16:25 HCO3 26.9 mmol/L (21-28) 07/23/17 16:25 ABG pH 7.50 (7.35-7.45) H 07/23/17 16:25 ABG Total CO2 26.0 mmol/L (22-28) 07/23/17 16:25 ABG O2 Saturation 99.1 % (95-98) H 07/23/17 16:25 ABG Base Excess 2.4 mmol/L (-2.0-3.0) 07/23/17 16:25 Gilmar Test Na 07/23/17 16:25 ABG Potassium 2.8 mmol/L (3.6-5.2) L 07/23/17 16:25 VBG pH 7.31 (7.32-7.43) L 07/18/17 21:11 VBG pCO2 33 mmHg (40-60) L 07/18/17 21:11 VBG HCO3 17.4 mmol/L 07/18/17 21:11 VBG Total CO2 17.6 mmol/L (22-28) L 07/18/17 21:11 VBG O2 Sat (Calc) 79.4 % (40-65) H 07/18/17 21:11 VBG Base Excess -8.6 mmol/L (0.0-2.0) L 07/18/17 21:11 VBG Potassium 4.3 mmol/L (3.6-5.2) 07/18/17 21:11 A-a O2 Difference -32.0 mm/Hg 07/23/17 16:25 Respiratory Index -0.2 07/23/17 16:25 Sodium 136.0 mmol/l (132-148) 07/23/17 16:25 Chloride 102.0 mmol/L (98-107) 07/23/17 16:25 Glucose 184 mg/dl (75-110) H 07/23/17 16:25 Lactate 1.0 mmol/L (0.7-2.1) 07/23/17 16:25 FiO2 21.0 % 07/23/17 16:25 Sodium 138 mmol/L (132-148) 07/26/17 07:18 Potassium 3.1 mmol/L (3.6-5.2) L 07/26/17 07:18 Chloride 98 mmol/L (98-107) 07/26/17 07:18 Carbon Dioxide 33 mmol/L (22-30) H 07/26/17 07:18 Anion Gap 10 (10-20) 07/26/17 07:18 BUN 3 mg/dL (9-20) L 07/26/17 07:18 Creatinine 0.5 mg/dL (0.8-1.5) L 07/26/17 07:18 Est GFR ( Amer) > 60 07/26/17 07:18 Est GFR (Non-Af Amer) > 60 07/26/17 07:18 POC Glucose (mg/dL) 146 mg/dL (65-110) H 07/26/17 11:16 Random Glucose 77 mg/dL (75-110) 07/26/17 07:18 Hemoglobin A1c 13.1 % (4.2-6.5) H 07/20/17 07:14 Lactic Acid 1.1 mmol/L (0.7-2.1) 07/19/17 01:01 Calcium 8.4 mg/dl (8.6-10.4) L 07/26/17 07:18 Phosphorus 2.8 mg/dL (2.5-4.5) 07/26/17 07:18 Magnesium 1.7 mg/dL (1.6-2.3) 07/26/17 07:18 Total Bilirubin 0.9 mg/dL (0.2-1.3) 07/26/17 07:18 AST 15 U/L (17-59) L 07/26/17 07:18 ALT 27 U/L (21-72) 07/26/17 07:18 Alkaline Phosphatase 68 U/L (38-126) 07/26/17 07:18 Total Creatine Kinase 44 U/L (55-170) L 07/19/17 14:11 CK-MB (Mass) 1.18 ng/mL (0.0-3.38) 07/19/17 14:11 Troponin I < 0.0120 ng/mL (0.00-0.120) 07/19/17 14:11 Total Protein 5.9 g/dL (6.3-8.3) L 07/26/17 07:18 Albumin 3.6 g/dL (3.5-5.0) 07/26/17 07:18 Globulin 2.4 gm/dL (2.2-3.9) 07/26/17 07:18 Albumin/Globulin Ratio 1.5 (1.0-2.1) 07/26/17 07:18 25-OH Vitamin D Total < 12.8 NG/ML (30.0-100.0) L 07/21/17 07:51 Free T4 1.35 ng/dL (0.78-2.19) 07/21/17 07:51 Thyroxine (T4) 8.46 ug/dL (5.5-11.0) 07/21/17 07:51 Free T3 pg/mL 1.90 pg/mL (2.77-5.27) L 07/21/17 07:51 Total T3 0.785 nmol/L (1.49-2.60) L 07/21/17 07:51 TSH 3rd Generation 0.46 mIU/L (0.46-4.68) 07/21/17 07:51 Arterial Blood Potassium 2.8 mmol/L (3.6-5.2) L 07/23/17 16:25 Venous Blood Potassium 4.3 mmol/L (3.6-5.2) 07/18/17 21:11 Urine Color Straw (YELLOW) 07/18/17 21:40 Urine Clarity Clear (Clear) 07/18/17 21:40 Urine pH 6.0 (5.0-8.0) 07/18/17 21:40 Ur Specific Gran[place] 1.024 (1.003-1.030) 07/18/17 21:40 Urine Protein Negative mg/dL (NEGATIVE) 07/18/17 21:40 Urine Glucose (UA) 3+ mg/dL (Normal) H 07/18/17 21:40 Urine Ketones 2+ mg/dL (NEGATIVE) H 07/18/17 21:40 Urine Blood Negative (NEGATIVE) 07/18/17 21:40 Urine Nitrate Negative (NEGATIVE) 07/18/17 21:40 Urine Bilirubin Negative (NEGATIVE) 07/18/17 21:40 Urine Urobilinogen Normal mg/dL (0.2-1.0) 07/18/17 21:40 Ur Leukocyte Esterase Neg Shelly/uL (Negative) 07/18/17 21:40 Urine Opiates Screen Negative (NEGATIVE) 07/18/17 21:40 Urine Methadone Screen Negative (NEGATIVE) 07/18/17 21:40 Ur Barbiturates Screen Negative (NEGATIVE) 07/18/17 21:40 Ur Phencyclidine Scrn Negative (NEGATIVE) 07/18/17 21:40 Ur Amphetamines Screen Negative (NEGATIVE) 07/18/17 21:40 U Benzodiazepines Scrn Negative (NEGATIVE) 07/18/17 21:40 U Oth Cocaine Metabols Positive (NEGATIVE) H 07/18/17 21:40 U Cannabinoids Screen Positive (NEGATIVE) H 07/18/17 21:40 Serum Ketones Moderate (NEGATIVE) 07/18/17 20:23 Thyroperoxidase Ab <1 IU/mL (<9) 07/21/17 07:51 Thyroglobulin Antibody <1 IU/mL (< OR = 1) 07/21/17 07:51 HIV 1&2 Antibody Screen Negative (NEGATIVE) 07/23/17 16:39 - Hospital Course Hospital Course: Upon Admission: Patient is a 26 year old male with a past medical history of IDDM, diabetic neuropathy, Chrohn's disease, bipolar disorder, schizophrenia, anxiety disorder and depression who presented to [facility] with complaints of chest pain. Patient states that he can't recall when chest pain began exactly but states that it has been present since his first admission on 07/11/17. States pain lasts all day and characterizes it as a tight squeezing sensation as if " someone is tightly gripping his chest especially when breathing inward." States that chest pain is associated with back pain, nausea, and burping. Admits to pain be exacerbated with speaking, relieved with patient rubbing his back in a circular motion as well as burping and bringing up phlegm. Patient denies recent viral infections, drug abuse, sick contacts, or recent travel. Patient states he does not move around much due to nerve pain. Admits to leaving the house once every other day to go to the corner store and get food, besides this patient does not move around or stay active. PMD: Dr. Barnett Past surgical history: Denies Social History: admits to marijuana abuse Family history: DM on paternal side Home medications: Humalog 20 unit TID, Trazodone 50 mg HS, Seroquel 100 mg HS, Lexapro 10 mg qD, Periactin 4 mg qD. Throughout Hospital Course: IDDM Nausea and Abdominal Pain Endocrinology consulted- Dr. Moon - help appreciated CLD - will advance as tolerated CT Abdomen and Pelvis with PO contrast- unremarkable, no new findings when compared to CT done 04/08/17 Encouraged patient to eat Labs: A1C - 13.1 (07/20) Medications: D5 1/2 NS with K - 100cc/hr - now that the potassium levels have normalized, changed fluids to NS @100cc.hr Levemir 10 unit SC QHS, Novolin 3 units SC ACBLD - will continue to monitor Gastritis GI was consulted - Dr. Troy - help appreciated Seen on EGD on 07/20/17 Electrolyte Imbalance Continue to monitor Potassium, Phosphorus, and Magnesium Prolonged QTc interval Secondary to psych medications - which are on hold Initial QTc was 444 on 07/22 EKG subsequent QTc intervals was 475 on 07/23, repeat was 440 on 07/24, repeat today 07/25 was 435. Normal QTc intervals for males < 440. All psych meds were placed on hold since 07/22/17 Continue to monitor Hx Chest Pain Cardiology consulted - Dr. Dickerson- naty appreciated ECHO: LVEF 75% Stress test performed - pending results Substance Abuse Disorder UDS - + cocaine and cannabinoids Schizophrenia, bipolar disorder anxiety disorder, depression Management by Psych These medications are on hold due to prolonged QTc interval Spoke to Dr. Lozano - he recommends once the patient is medically cleared, he can be discharged. As per psych, since the patient is choosing not to eat, causing dehydration and electrolyte imbalances, he will need to continue seeking medical attention. He will be provided with a list of outpatient places he can visit to assistance with his depression and other psychiatric conditions. Medicine Team has stabilized the patient, we are pending recommendations of what psych medications to discharge the patient on since all psych medications were placed on hold due to the prolonged QTc interval as well as, a list of outpatient places this patient can follow up with for further psychiatric care. Onychomycosis Podiatry consulted - seen by Dr. Montenegro Prophylactic Measures GI PPX: Protonix 40mg PO BID, Sucralfate 1 gm PO QID DVT PPX: encourage ambulation Liquid Diet Disposition: Psychiatry recommended patient remain on Remeron and LEXAPRO and to follow up with outpatient psych at [facility] across the street. DW Thai Cardenas DO, PGY-1 This is a brief summary of the patient's hospital course, please review EMR for full record. Discharge Exam - Head Exam Head Exam: NORMAL INSPECTION, NORMOCEPHALIC - Additional Findings Additional findings: - Constitutional Appears: No Acute Distress, Unkempt - Head Exam Head Exam: NORMAL INSPECTION, NORMOCEPHALIC - Eye Exam Eye Exam: EOMI, Normal appearance, PERRL - ENT Exam ENT Exam: Mucous Membranes Dry - Respiratory Exam Respiratory Exam: Clear to Auscultation Bilateral, NORMAL BREATHING PATTERN. absent: Wheezes - Cardiovascular Exam Cardiovascular Exam: REGULAR RHYTHM, RRR, +S1, +S2 - GI/Abdominal Exam GI & Abdominal Exam: Normal Bowel Sounds, Soft. RUQ and RLQ pain with deep palpation but NO guarding. absent: Distended - Extremities Exam Extremities exam: Positive for: normal inspection, pedal pulses present. Onychomycosis of Bilateral Feet Nails. Negative for: pedal edema, tenderness - Neurological Exam Neurological exam: Alert, Oriented x3 - Psychiatric Exam Psychiatric exam: Normal Affect, Normal Mood Discharge Plan - Discharge Medications Prescriptions: Escitalopram [Lexapro] 20 mg PO DAILY #30 tab Mirtazapine [Remeron] 30 mg PO HS #30 tab Ondansetron [Zofran] 4 mg PO Q8H PRN #20 tab PRN Reason: Nausea/Vomiting Pantoprazole [Protonix EC Tab] 40 mg PO DAILY #30 ect Sucralfate [Carafate] 1 gm PO BID #60 tablet - Follow Up Plan Condition: FAIR Disposition: HOME/ ROUTINE Instructions: Sucralfate (By mouth), Ondansetron (By mouth), Mirtazapine (By mouth), Pantoprazole (By mouth), Escitalopram (By mouth), Chest Pain (DC), Basic Carbohydrate Counting (DC), Meal Planning with the Plate Method (DC), Meal Planning with Diabetes Exchanges (DC), Diabetic Hyperglycemia (DC) Additional Instructions: You are to follow up with your primary care physician in 1 week. If you do not have a primary care physician, please make an appointment with [facility] [phone]. Follow up with [facility] across the street for outpatient psych. For your medications you are to take the following: For your Diabetes: Lispro 20 units BEFORE each meal, if you are not eating, please DO NOT take the insulin. For you psych meds: ONLY TAKE Lexapro 20mg by mouth daily and Remeron 30mg by mouth at night. DO NOT TAKE SEROQUEL and TRAZADONE - these medications affect your heart- PLEASE DO NOT TAKE. For your gastritis - please take protonix 40mg by mouth daily and sucralfate 1 gram by mouth twice a day before breakfast and before dinner. Please drink Ensure 3x a day. Referrals: [facility] [Outside] [place] [facility] [Outside] <Misbah Romero - Last Filed: 07/26/17 18:31> Provider - Provider Date of Admission: 07/21/17 16:26 Attending physician: Misbah Romero MD Hospital Course - Lab Results Lab Results: Most Recent Lab Values WBC 4.8 K/uL (4.8-10.8) 07/26/17 07:18 RBC 5.04 Mil/uL (4.40-5.90) 07/26/17 07:18 Hgb 14.8 g/dL (12.0-18.0) 07/26/17 07:18 Hct 43.6 % (35.0-51.0) 07/26/17 07:18 MCV 86.6 fL (80.0-94.0) 07/26/17 07:18 MCH 29.4 pg (27.0-31.0) 07/26/17 07:18 MCHC 34.0 g/dL (33.0-37.0) 07/26/17 07:18 RDW 13.5 % (11.5-14.5) 07/26/17 07:18 Plt Count 220 K/uL (130-400) 07/26/17 07:18 MPV 9.0 fL (7.2-11.7) 07/26/17 07:18 Neut % (Auto) 49.6 % (50.0-75.0) L 07/26/17 07:18 Lymph % (Auto) 34.5 % (20.0-40.0) 07/26/17 07:18 Desha % (Auto) 12.8 % (0.0-10.0) H 07/26/17 07:18 Eos % (Auto) 2.4 % (0.0-4.0) 07/26/17 07:18 Baso % (Auto) 0.7 % (0.0-2.0) 07/26/17 07:18 Neut # 2.4 K/uL (1.8-7.0) 07/26/17 07:18 Lymph # 1.6 K/uL (1.0-4.3) 07/26/17 07:18 Desha # 0.6 K/uL (0.0-0.8) 07/26/17 07:18 Eos # 0.1 K/uL (0.0-0.7) 07/26/17 07:18 Baso # 0.0 K/uL (0.0-0.2) 07/26/17 07:18 Puncture Site Right rad 07/23/17 16:25 pCO2 32 mm/Hg (35-45) L 07/23/17 16:25 pO2 142 mm/Hg (80-100) H 07/23/17 16:25 HCO3 26.9 mmol/L (21-28) 07/23/17 16:25 ABG pH 7.50 (7.35-7.45) H 07/23/17 16:25 ABG Total CO2 26.0 mmol/L (22-28) 07/23/17 16:25 ABG O2 Saturation 99.1 % (95-98) H 07/23/17 16:25 ABG Base Excess 2.4 mmol/L (-2.0-3.0) 07/23/17 16:25 Gilmar Test Na 07/23/17 16:25 ABG Potassium 2.8 mmol/L (3.6-5.2) L 07/23/17 16:25 VBG pH 7.31 (7.32-7.43) L 07/18/17 21:11 VBG pCO2 33 mmHg (40-60) L 07/18/17 21:11 VBG HCO3 17.4 mmol/L 07/18/17 21:11 VBG Total CO2 17.6 mmol/L (22-28) L 07/18/17 21:11 VBG O2 Sat (Calc) 79.4 % (40-65) H 07/18/17 21:11 VBG Base Excess -8.6 mmol/L (0.0-2.0) L 07/18/17 21:11 VBG Potassium 4.3 mmol/L (3.6-5.2) 07/18/17 21:11 A-a O2 Difference -32.0 mm/Hg 07/23/17 16:25 Respiratory Index -0.2 07/23/17 16:25 Sodium 136.0 mmol/l (132-148) 07/23/17 16:25 Chloride 102.0 mmol/L (98-107) 07/23/17 16:25 Glucose 184 mg/dl (75-110) H 07/23/17 16:25 Lactate 1.0 mmol/L (0.7-2.1) 07/23/17 16:25 FiO2 21.0 % 07/23/17 16:25 Sodium 138 mmol/L (132-148) 07/26/17 07:18 Potassium 3.1 mmol/L (3.6-5.2) L 07/26/17 07:18 Chloride 98 mmol/L (98-107) 07/26/17 07:18 Carbon Dioxide 33 mmol/L (22-30) H 07/26/17 07:18 Anion Gap 10 (10-20) 07/26/17 07:18 BUN 3 mg/dL (9-20) L 07/26/17 07:18 Creatinine 0.5 mg/dL (0.8-1.5) L 07/26/17 07:18 Est GFR ( Amer) > 60 07/26/17 07:18 Est GFR (Non-Af Amer) > 60 07/26/17 07:18 POC Glucose (mg/dL) 146 mg/dL (65-110) H 07/26/17 11:16 Random Glucose 77 mg/dL (75-110) 07/26/17 07:18 Hemoglobin A1c 13.1 % (4.2-6.5) H 07/20/17 07:14 Lactic Acid 1.1 mmol/L (0.7-2.1) 07/19/17 01:01 Calcium 8.4 mg/dl (8.6-10.4) L 07/26/17 07:18 Phosphorus 2.8 mg/dL (2.5-4.5) 07/26/17 07:18 Magnesium 1.7 mg/dL (1.6-2.3) 07/26/17 07:18 Total Bilirubin 0.9 mg/dL (0.2-1.3) 07/26/17 07:18 AST 15 U/L (17-59) L 07/26/17 07:18 ALT 27 U/L (21-72) 07/26/17 07:18 Alkaline Phosphatase 68 U/L (38-126) 07/26/17 07:18 Total Creatine Kinase 44 U/L (55-170) L 07/19/17 14:11 CK-MB (Mass) 1.18 ng/mL (0.0-3.38) 07/19/17 14:11 Troponin I < 0.0120 ng/mL (0.00-0.120) 07/19/17 14:11 Total Protein 5.9 g/dL (6.3-8.3) L 07/26/17 07:18 Albumin 3.6 g/dL (3.5-5.0) 07/26/17 07:18 Globulin 2.4 gm/dL (2.2-3.9) 07/26/17 07:18 Albumin/Globulin Ratio 1.5 (1.0-2.1) 07/26/17 07:18 25-OH Vitamin D Total < 12.8 NG/ML (30.0-100.0) L 07/21/17 07:51 Free T4 1.35 ng/dL (0.78-2.19) 07/21/17 07:51 Thyroxine (T4) 8.46 ug/dL (5.5-11.0) 07/21/17 07:51 Free T3 pg/mL 1.90 pg/mL (2.77-5.27) L 07/21/17 07:51 Total T3 0.785 nmol/L (1.49-2.60) L 07/21/17 07:51 TSH 3rd Generation 0.46 mIU/L (0.46-4.68) 07/21/17 07:51 Arterial Blood Potassium 2.8 mmol/L (3.6-5.2) L 07/23/17 16:25 Venous Blood Potassium 4.3 mmol/L (3.6-5.2) 07/18/17 21:11 Urine Color Straw (YELLOW) 07/18/17 21:40 Urine Clarity Clear (Clear) 07/18/17 21:40 Urine pH 6.0 (5.0-8.0) 07/18/17 21:40 Ur Specific Granby 1.024 (1.003-1.030) 07/18/17 21:40 Urine Protein Negative mg/dL (NEGATIVE) 07/18/17 21:40 Urine Glucose (UA) 3+ mg/dL (Normal) H 07/18/17 21:40 Urine Ketones 2+ mg/dL (NEGATIVE) H 07/18/17 21:40 Urine Blood Negative (NEGATIVE) 07/18/17 21:40 Urine Nitrate Negative (NEGATIVE) 07/18/17 21:40 Urine Bilirubin Negative (NEGATIVE) 07/18/17 21:40 Urine Urobilinogen Normal mg/dL (0.2-1.0) 07/18/17 21:40 Ur Leukocyte Esterase Neg Shelly/uL (Negative) 07/18/17 21:40 Urine Opiates Screen Negative (NEGATIVE) 07/18/17 21:40 Urine Methadone Screen Negative (NEGATIVE) 07/18/17 21:40 Ur Barbiturates Screen Negative (NEGATIVE) 07/18/17 21:40 Ur Phencyclidine Scrn Negative (NEGATIVE) 07/18/17 21:40 Ur Amphetamines Screen Negative (NEGATIVE) 07/18/17 21:40 U Benzodiazepines Scrn Negative (NEGATIVE) 07/18/17 21:40 U Oth Cocaine Metabols Positive (NEGATIVE) H 07/18/17 21:40 U Cannabinoids Screen Positive (NEGATIVE) H 07/18/17 21:40 Serum Ketones Moderate (NEGATIVE) 07/18/17 20:23 Thyroperoxidase Ab <1 IU/mL (<9) 07/21/17 07:51 Thyroglobulin Antibody <1 IU/mL (< OR = 1) 07/21/17 07:51 HIV 1&2 Antibody Screen Negative (NEGATIVE) 07/23/17 16:39 Attending/Attestation - Attestation I have personally seen and examined this patient.: Yes I have fully participated in the care of the patient.: Yes I have reviewed all pertinent clinical information, including history, physical exam and plan: Yes Notes (Text): 07/26/17 18:28 Patient was seen shortly after resident. Exam, assessment and plan, discharge instructions were thoroughly gone over with the resident. Misbah Romero D.O.
--- NOTE | 2017-07-27 13:18 | CARD ---
APPROVED REPORT EKG Measurement Heart [id number] [id number] <Conclusion> Normal sinus rhythm Possible Left atrial enlargement Rightward axis Marked T wave abnormality, consider inferolateral ischemia Prolonged QT Abnormal ECG
--- NOTE | 2017-07-27 13:18 | CARD ---
APPROVED REPORT EKG Measurement Heart [id number] [id number] <Conclusion> Sinus rhythm with short AK Biatrial enlargement T wave abnormality, consider inferolateral ischemia Prolonged QT Abnormal ECG
== END 2017-07-26 14:20 | disposition home or self-care (01) | DRG 182 ==
LOC: C.ER 19:59 → C.6T 07-19 00:13 → OBSVTOIN 07-21 16:26 → C.5E 07-22 12:50 → C.6T 07-23 18:55
PROVIDERS: ADMIT Family Medicine; ATTEND Family Medicine
PROC: 0DD98ZX Extraction of Duodenum, Via Natural or Artificial Opening Endoscopic, Diagnostic (ICD-10-PCS; 2017-07-20)
PROC: 0DD68ZX Extraction of Stomach, Via Natural or Artificial Opening Endoscopic, Diagnostic (ICD-10-PCS; principal; 2017-07-20 12:32)
DX: K29.60 Other gastritis without bleeding (principal); E10.10 Type 1 diabetes mellitus with ketoacidosis without coma; K92.0 Hematemesis; F33.2 Major depressive disorder, recurrent severe without psychotic features; K31.84 Gastroparesis; E10.43 Type 1 diabetes mellitus with diabetic autonomic (poly)neuropathy; F20.9 Schizophrenia, unspecified; E83.51 Hypocalcemia; E87.6 Hypokalemia; F14.10 Cocaine abuse, uncomplicated; K29.80 Duodenitis without bleeding; E86.0 Dehydration; K20.8 Other esophagitis; R07.89 Other chest pain; E55.9 Vitamin D deficiency, unspecified; F12.10 Cannabis abuse, uncomplicated; I45.81 Long QT syndrome; B35.1 Tinea unguium; D72.819 Decreased white blood cell count, unspecified; E07.81 Sick-euthyroid syndrome; F31.9 Bipolar disorder, unspecified; I25.10 Atherosclerotic heart disease of native coronary artery without angina pectoris; K50.90 Crohn's disease, unspecified, without complications; F41.9 Anxiety disorder, unspecified; K59.00 Constipation, unspecified; H54.8 Legal blindness, as defined in USA; H91.90 Unspecified hearing loss, unspecified ear; Z79.4 Long term (current) use of insulin

== ENCOUNTER 2017-08-02 02:04 | Emergency (ER) | payer MEDICAID ==
[2017-08-02 02:06] VITALS: BMI 13.6
[2017-08-02 02:26] VITALS: RESP 18
--- NOTE | 2017-08-02 02:38 | C.PDOC ---
History Of Present Illness 26 year old male presents to the ER with a complaint of rectal pain since yesterday, associated with intermittent diarrhea. Denies rectal bleeding or abdominal pain.Pt reports past h/o of hemorrhoids and sx feel similar Time Seen by Provider: 08/02/17 02:26 Chief Complaint (Nursing): Abdominal Pain History Per: Patient History/Exam Limitations: no limitations Onset/Duration Of Symptoms: Days Current Symptoms Are (Timing): Still Present Radiation Of Pain To:: None Quality Of Discomfort: Unable To Describe Associated Symptoms: Diarrhea. denies: Fever, Chills Exacerbating Factors: None Alleviating Factors: None Recent travel outside of the [place]: No Past Medical History Reviewed: Historical Data, Nursing Documentation, Vital Signs Vital Signs: Last Vital Signs Temp 97.6 F 08/02/17 03:50 Pulse 82 08/02/17 03:50 Resp 18 08/02/17 03:50 BP 123/80 08/02/17 03:50 Pulse Ox 97 08/02/17 04:24 - Medical History PMH: Bipolar Disorder, Crohn's Disease, Depression, Diabetes (Type 1), Schizophrenia - [facility] Procedures (07/21/17) (07/21/17) Family History: States: Unknown Family Hx - Social History Hx Tobacco Use: No Hx Alcohol Use: No Hx Substance Use: Yes (MARIJUANA) - Immunization History Hx Tetanus Toxoid Vaccination: No Hx Influenza Vaccination: No Hx Pneumococcal Vaccination: No Review Of Systems Constitutional: Negative for: Fever, Chills Gastrointestinal: Positive for: Diarrhea, Rectal Pain. Negative for: Nausea, Vomiting, Abdominal Pain, Other (Rectal bleeding) Physical Exam - Physical Exam Appears: Non-toxic, No Acute Distress, Unkempt Skin: Normal Color, Warm, Dry Head: Atraumatic, Normacephalic Eye(s): bilateral: Normal Inspection Teeth: Other (Poor dentition) Rectal: No Melena, No Blood Streaked Stool, Tenderness (anal area, no abscess), Other (Skin tag at 4-5 o'clock, anal fissures. No melena or active bleeding.) Neurological/Psych: Oriented x3, Normal Speech Gait: Steady ED Course And Treatment O2 Sat by Pulse Oximetry: 97 (Room air) Pulse Ox Interpretation: Normal Progress Note: Toradol IM ordered. Patient reports improvement of pain, will discharge with instructions to follow up with PMD. 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 BS 40mg /dl. Pt AAOx 3 and given orange juice- Pt observed for 1hr and repeat BS 99. Pt. feels better and is safe for d/c. Pt understands to follow up with Dr Barnett for further evaluation Disposition Counseled Patient/Family Regarding: Diagnosis, Need For Followup - Disposition Referrals: Cristiano Barnett MD [Medical Doctor] - Disposition: HOME/ ROUTINE Disposition Time: 02:51 Condition: STABLE Additional Instructions: Use suppository as prescribed High fiber diet Follow up with your primary doctor Return to ER if worse Prescriptions: Hydrocortisone [Anusol-HC] 25 mg RC BID #14 sup Insulin Lispro [Humalog (Insulin Lispro)] 20 unit SQ DAILY #1 cartridge traMADol [Ultram] 50 mg PO TID #14 tab Instructions: Anal Fissure (ED), Rectal Pain (ED) Forms: [email or web address] (K[place]) - Clinical Impression Clinical Impression: Rectal pain, Anal fissure, Medication refill - PA / ORNAMENTER HAND / Resident Statement MD/DO has reviewed & agrees with the documentation as recorded. - Scribe Statement The provider has reviewed the documentation as recorded by the Scribe Jamil Nova All medical record entries made by the [employer]is[employer] were at my direction and personally dictated by me. I have reviewed the chart and agree that the record accurately reflects my personal performance of the history, physical exam, medical decision making, and the department course for this patient. I have also personally directed, reviewed, and agree with the discharge instructions and disposition.
[2017-08-02 03:51] VITALS: BP 123/80; PULSE 82; TEMP 97.6
[2017-08-02 04:23] VITALS: O2SAT 97
== END 2017-08-02 05:43 | disposition home or self-care (01) ==
LOC: C.ER 02:04
DX: K60.2 Anal fissure, unspecified (principal); K62.89 Other specified diseases of anus and rectum; Z76.0 Encounter for issue of repeat prescription
CPT/HCPCS: 82948; 96372; 99284; J1885

== ENCOUNTER 2017-08-13 18:49 | Observation (INO) | payer MEDICAID ==
[2017-08-13 18:49] VITALS: BMI 13.6
[2017-08-13] MEDS ORDERED: Sodium Chloride 0.9% 1,000 ML IV ONE ×2 (19:45→20:39)
[2017-08-13] MEDS ORDERED: Morphine 4 MG/ML VIAL IV STA (19:46)
[2017-08-13] MEDS ORDERED: Morphine 4 MG/ML VIAL ONE (19:52)
[2017-08-13] MEDS ORDERED: (Novolin R) Insulin Human Regular 100 units/ml vial IV STA (19:57)
[2017-08-13 20:04] LABS: BASO # 0.1 K/uL (0.0-0.2); BASO % 0.9 % (0.0-2.0); EOS # 0.1 K/uL (0.0-0.7); EOS % 0.8 % (0.0-4.0); HEMOGLOBIN 14.7 g/dL (12.0-18.0); LYMPH # 1.3 K/uL (1.0-4.3); LYMPH % 20.3 % (20.0-40.0); MEAN CELL VOLUME 87.8 fL (80.0-94.0); MEAN CORPUSCULAR HEMOGLOBIN 29.9 pg (27.0-31.0); MONO # 0.5 K/uL (0.0-0.8); NEUT # 4.6 K/uL (1.8-7.0); RBC 4.91 Mil/uL (4.40-5.90); RED CELL DISTRIBUTION WIDTH 13.1 % (11.5-14.5); WHITE BLOOD COUNT 6.6 K/uL (4.8-10.8)
[2017-08-13] MEDS ORDERED: (Novolin R) Insulin Human Regular 100 units/ml vial ONE (20:04)
[2017-08-13 20:07] LABS: URINE BILIRUBIN NEGATIVE (NEGATIVE); URINE BLOOD NEGATIVE (NEGATIVE); URINE CLARITY Clear (Clear); URINE COLOR Colorless (YELLOW); URINE GLUCOSE (UA) 3+ mg/dL (Normal); URINE LEUKOCYTE ESTERASE NEG Leu/uL (Negative); URINE NITRATE NEGATIVE (NEGATIVE); URINE PROTEIN NEGATIVE (NEGATIVE); URINE UROBILINOGEN NORMAL mg/dL (0.2-1.0)
[2017-08-13] MEDS ORDERED: Iohexol 240 (50 ml) ONE (20:08)
[2017-08-13 20:18] LABS: BARBITURATES, UR NEGATIVE (NEGATIVE); BENZODIAZEPINES, UR NEGATIVE (NEGATIVE); OPIATES, UR NEGATIVE (NEGATIVE); PHENCYCLIDINE, UR NEGATIVE (NEGATIVE)
[2017-08-13] MEDS ORDERED: Insulin Human Regular 100 UNIT in Sodium Chloride 0.9% 99 ML IV STA (20:19)
[2017-08-13 20:20] LABS: ALB/GLOB RATIO 1.4 (1.0-2.1); ALBUMIN 4.4 g/dL (3.5-5.0); ALT/SGPT 52 U/L (21-72); AST/SGOT 41 U/L (17-59); BLOOD UREA NITROGEN 20 mg/dL (9-20); CALCIUM 9.1 mg/dl (8.6-10.4); GFR AFRICAN-AMERICAN > 60; GFR NON-AFRICAN AMERICAN > 60
[2017-08-13] MEDS ORDERED: DiphenhydrAMINE 50 mg/ml Inj ONE (20:31)
[2017-08-13] MEDS ORDERED: DiphenhydrAMINE 50 mg/ml Inj IVP STA (20:33)
[2017-08-13] MEDS ORDERED: Iodixanol 320 MG/ML 100 ML BOTTLE IV ONE (20:38)
--- NOTE | 2017-08-13 20:40 | C.PDOC ---
Time Seen by Provider: 08/13/17 19:38 Chief Complaint (Nursing): Abdominal Pain Past Medical History Vital Signs: Last Vital Signs Temp 97.7 F 08/13/17 18:58 Pulse 82 08/13/17 19:58 Resp 16 08/13/17 19:58 BP 117/79 08/13/17 19:58 Pulse Ox 96 08/13/17 19:58 - Medical History PMH: Bipolar Disorder, Crohn's Disease, Depression, Diabetes (Type 1), Schizophrenia Denies: HIV, Chronic Kidney Disease - [facility] Procedures (07/21/17) (07/21/17) Family History: States: Unknown Family Hx - Social History Hx Tobacco Use: No Hx Alcohol Use: No Hx Substance Use: Yes (MARIJUANA) - Immunization History Hx Tetanus Toxoid Vaccination: No Hx Influenza Vaccination: No Hx Pneumococcal Vaccination: No ED Course And Treatment - Laboratory Results Result Diagrams: 08/13/17 19:51 08/13/17 19:51 O2 Sat by Pulse Oximetry: 96 Disposition - Disposition
--- NOTE | 2017-08-13 20:41 | C.PDOC ---
History Of Present Illness 26 year old male presents to the ED c/o abdominal pain, rectal pain and uncontrolled DM. Patient was recently admitted on 07/21 for dehydration and hypokalemia, and prolonged acute abdominal pain. Patient reports not being complaint with his insulin since he was d/c last time. Patient denies fever, chills, nausea, vomit, diarrhea. Time Seen by Provider: 08/13/17 19:38 Chief Complaint (Nursing): Abdominal Pain History Per: Patient History/Exam Limitations: no limitations Onset/Duration Of Symptoms: Days Current Symptoms Are (Timing): Still Present Location Of Pain/Discomfort: Diffuse Radiation Of Pain To:: None Quality Of Discomfort: "Pain" Associated Symptoms: denies: Nausea, Vomiting, Diarrhea, Urinary Symptoms Alleviating Factors: None Recent travel outside of the [place]: No Additional History Per: Patient Past Medical History Reviewed: Historical Data, Nursing Documentation, Vital Signs Vital Signs: Last Vital Signs Temp 97.7 F 08/13/17 18:58 Pulse 82 08/13/17 19:58 Resp 16 08/13/17 19:58 BP 117/79 08/13/17 19:58 Pulse Ox 96 08/13/17 20:46 - Medical History PMH: Bipolar Disorder, Crohn's Disease, Depression, Diabetes (Type 1), Schizophrenia Denies: HIV, Chronic Kidney Disease Surgical History: No Surg Hx - [facility] (07/21/17) (07/21/17) Family History: States: Unknown Family Hx - Social History Hx Tobacco Use: No Hx Alcohol Use: No Hx Substance Use: Yes (MARIJUANA) - Immunization History Hx Tetanus Toxoid Vaccination: No Hx Influenza Vaccination: No Hx Pneumococcal Vaccination: No Review Of Systems Constitutional: Negative for: Fever, Chills Cardiovascular: Negative for: Chest Pain, Palpitations Respiratory: Negative for: Cough, Shortness of Breath Gastrointestinal: Positive for: Abdominal Pain Genitourinary: Negative for: Dysuria, Hematuria Musculoskeletal: Negative for: Back Pain Skin: Negative for: Rash Neurological: Negative for: Weakness, Numbness Physical Exam - Physical Exam Appears: Non-toxic, Chronically Ill, Other (thin, wasted) Skin: Normal Color, Warm, Dry Head: Atraumatic, Normacephalic Nose: No Discharge Oral Mucosa: Dry Neck: Normal ROM, Supple Chest: Symmetrical Cardiovascular: Rhythm Regular, No Murmur Respiratory: Normal Breath Sounds, No Rales, No Rhonchi, No Wheezing Gastrointestinal/Abdominal: Soft, Tenderness (LLQ), No Guarding, No Rebound Extremity: Normal ROM, No Pedal Edema, No Calf Tenderness, No Deformity, No Swelling Neurological/Psych: Oriented x3 ED Course And Treatment - Laboratory Results Result Diagrams: 08/13/17 19:51 08/13/17 19:51 Lab Interpretation: Abnormal (+ elev glu. ABG wnl, no acidosis) O2 Sat by Pulse Oximetry: 96 (On RA) Pulse Ox Interpretation: Normal - Radiology CXR: Interpreted by Me CXR Interpretation: Yes: No Acute Disease Progress Note: insulin, IVF, morphine, zofran, Pepcid IV Reevaluation Time: 23:44 Reassessment Condition: Improved Medical Decision Making Medical Decision Making: Plan: * ABG * EKG * CT abd/pelvis * Blood work * Benadryl 25 mg IVP * IV fluids * Morphine 6 mg IV * Novolin 10 units * UA Patients initial BS was 484. glucose controlled with a single insulin dose no DKA IV hydration continued Crohn's Pain controlled with morphine IV CT ABd with some bowel inflammation Further eval per GI Disposition Doctor Will See Patient In The: Hospital Counseled Patient/Family Regarding: Studies Performed, Diagnosis - Disposition Disposition: HOSPITALIZED Disposition Time: 23:45 Condition: FAIR Forms: [facility] (Jordanian) - Clinical Impression Clinical Impression: Hyperglycemia, Abdominal pain, Crohn disease - Scribe Statement The provider has reviewed the documentation as recorded by the Scribe Jelani Puentes All medical record entries made by the Scribe were at my direction and personally dictated by me. I have reviewed the chart and agree that the record accurately reflects my personal performance of the history, physical exam, medical decision making, and the department course for this patient. I have also personally directed, reviewed, and agree with the discharge instructions and disposition.
[2017-08-13 20:44] LABS: ABG ALLEN TEST POS; ARTERIAL BLOOD GAS HCO3 25.9 mmol/L (21-28); ARTERIAL BLOOD GAS O2 SAT 99.2 % (95-98); ARTERIAL BLOOD GAS PCO2 41 mm/Hg (35-45); ARTERIAL BLOOD GAS PH 7.41 (7.35-7.45); ARTERIAL BLOOD GAS PO2 119 mm/Hg (80-100); ARTERIAL BLOOD GAS TCO2 27.3 mmol/L (22-28)
--- NOTE | 2017-08-13 23:01 | CT ---
EXAM: CT Abdomen and Pelvis With Intravenous Contrast CLINICAL HISTORY: 26 years old, male; Pain; Abdominal pain; Localized; Left lower quadrant (llq); Additional info: Llq, h/o crohn's and colon ca TECHNIQUE: Axial computed tomography images of the abdomen and pelvis with intravenous contrast. All CT scans at this facility use one or more dose reduction techniques, viz.: automated exposure control; ma/kV adjustment per patient size (including targeted exams where dose is matched to indication; i.e. head); or iterative reconstruction technique. Coronal and sagittal reformatted images were created and reviewed. CONTRAST: 100 mL of [id number] administered intravenously. COMPARISON: CT - ABD PELVIS PO IV CONTRAST 2017-07-24 16:47 FINDINGS: Lower thorax: No acute findings. ABDOMEN: Liver: No acute abnormality as visualized. Gallbladder and bile ducts: No acute abnormality as visualized. Pancreas: No acute abnormality as visualized. Spleen: No splenomegaly. Adrenals: No acute abnormality as visualized. Kidneys and ureters: Symmetric emhancement. No hydronephrosis. Stomach and bowel: Reflux of contrast into the distal esophagus. Intermittent opacification limits evaluation. Additionally, contrast has not reached the colon at the time of imaging. Areas of apparent bowel wall prominence may represent incomplete distention, but bowel wall thickening/inflammation is a consideration, this is most notable in the distal small bowel. No obstruction. Appendix: Not clearly visualized. PELVIS: Bladder: Distended bladder. Reproductive: No acute abnormality as visualized. ABDOMEN and PELVIS: Intraperitoneal space: No free air. No significant fluid collection. Bones: Schmorl's node involving superior endplate of T11. Soft tissue: Evidence of gynecomastia. Vasculature: No acute abnormality as visualized. No abdominal aortic aneurysm. Lymph nodes: No acute abnormality as visualized. IMPRESSION: Reflux of contrast into the distal esophagus. Intermittent opacification limits evaluation. Additionally, contrast has not reached the colon at the time of imaging. Areas of apparent bowel wall prominence may represent incomplete distention, but bowel wall thickening/inflammation is a consideration, this is most notable in the distal small bowel. Correlate clinically. Followup as warranted.
[2017-08-14 02:14] VITALS: RESP 20
[2017-08-14] MEDS: Sodium Chloride 0.9% 1,000 ML IV SCH ×2 (03:10→17:10)
[2017-08-14] MEDS ORDERED: (Novolog) Insulin Aspart, Recombinant 100 u/ml 10 ml vial SC SCH (07:30)
[2017-08-14] MEDS ORDERED: Pantoprazole 40 mg EC Tab PO SCH (10:00)
[2017-08-14] MEDS: Enoxaparin 40 mg Syringe SC SCH (10:42)
--- NOTE | 2017-08-14 11:16 | CON ---
DATE: ENDOCRINOLOGY CONSULT LOCATION: Room 357. HISTORY OF PRESENT ILLNESS: This is a 26-year-old male with known history of type 1 insulin-dependent diabetes, presenting here with recurrent abdominal pain and recent acute exacerbation on the background of Crohn disease and is now being referred for diabetic evaluation because of supervening hyperglycemic accelerations as noted thereof. PAST MEDICAL HISTORY: As mentioned above. History of type 1 insulin-dependent diabetes, currently on a combination of Humalog given as 20 units t.i.d. before meals and also another dose of Humalog at bedtime, which is quite strange as he was actually discharged in the previous admission on long-acting basal insulin with Lantus given as 30 units subcu at bedtime daily, which he did not comply with, neither does not comply with the Humalog insulin, which he takes only on a p.r.n. basis at home. History of hypertensive cardiovascular disease and dyslipidemia, history of Crohn disease and has had multiple exacerbations for the same. History of generalized anxiety and depression with underlying schizophrenia as noted. FAMILY HISTORY: Positive for hypertension and diabetes. SOCIAL HISTORY: Patient has a supportive family. No known substance use. REVIEW OF SYSTEMS: As mentioned above. Admits to generalized body weakness with easy fatigability and tiredness and suboptimal energy level. Also, admits to episodic bouts of dizziness and lightheadedness, worse on the day of admission. No chest pains or palpitations but admits to occasional shortness of breath, especially on exertion. His oral intake has been variable with nausea, dyspepsia, and episodic upper abdominal pains and at this time, developed diffuse abdominal pain with supervening intractable vomiting episodes with occasional loose watery diarrhea. PHYSICAL EXAMINATION: GENERAL: This is an average-built male, in no apparent distress. VITAL SIGNS: Blood pressure of 140/80, pulse of 100 beats per minute and regular, temperature 98, respirations 20, height is 5 feet 8 inches, weight is 88 pounds. HEENT: Head, normocephalic. Eyes anicteric with pink conjunctivae. Funduscopy not possible at this time. Ears, nose, and throat otherwise normal. NECK: Supple. Thyroid gland is normal in size. No carotid bruits or cervical adenopathy. CARDIOPULMONARY: Some adynamic precordium. S1, S2 is rapid and regular. LUNGS: Clear to auscultation. ABDOMEN: Flat, soft with positive direct tenderness in the upper quadrants but no evidence of any rebound tenderness. EXTREMITIES: No peripheral edema. Pulses are +2 bilaterally. LABORATORY DATA: His chemistries showed a BUN of 20, sodium 123, potassium 5.1, chloride 83, CO2 of 28, glucose 484, and creatinine 0.5. His latest glucose is 240 mg/dL. ASSESSMENT: This is a 26-year-old male with uncontrolled and decompensated type 1 insulin-dependent diabetes, presenting here with acute exacerbation of Crohn disease with nausea, dyspepsia, diffuse abdominal pain, and episodic bouts of vomiting as noted. He also has very poor and suboptimal control of his diabetic condition with known history of uncontrolled type 1 insulin-dependent diabetes. PLAN OF MANAGEMENT: As discussed with the patient and staff, we will continue the vigorous IV hydration as given and obtain serial chemistries and supplement accordingly as needed. We will also modify his current insulin regimen to a more physiologic basal and bolus insulin drug combination with Lantus to be started at 30 units subcu at bedtime daily to start tonight. We will add NovoLog given as 8 units t.i.d. before meals to start at lunchtime today as ordered. We will modify the coverage scale to obviate hypoglycemia and detailed orders have been given. We will follow and advise accordingly. Kayce Kaplan MD
[2017-08-14] MEDS: (Novolog) Insulin Aspart, Recombinant 100 u/ml 10 ml vial SC SCH ×5 (12:36→22:26)
--- NOTE | 2017-08-14 15:30 | CP.PCM.HP ---
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) - RENAL Hx Chronic Kidney Disease: No - ENDOCRINE/METABOLIC Hx Endocrine Disorders: Yes Hx Diabetes Mellitus Type 1: Yes (insulin dependent) - HEMATOLOGICAL/ONCOLOGICAL Hx Blood Disorders: No Hx Human Immunodeficiency Virus (HIV): No - INTEGUMENTARY Hx Dermatological Problems: No - MUSCULOSKELETAL/RHEUMATOLOGICAL Hx Musculoskeletal Disorders: No Hx Falls: No - GASTROINTESTINAL Hx Gastrointestinal Disorders: Yes Hx Crohn's Disease: Yes - GENITOURINARY/GYNECOLOGICAL Hx Genitourinary Disorders: No - PSYCHIATRIC Hx Psychophysiologic Disorder: Yes Hx Bipolar Disorder: Yes Hx Depression: Yes Hx Schizophrenia: Yes Hx Substance Use: Yes (Marijuana) - SURGICAL HISTORY Hx Surgeries: Yes Other/Comment: wired Jaw - ANESTHESIA Hx Anesthesia: Yes Hx Anesthesia Reactions: No Hx Malignant Hyperthermia: No Meds Allergies/Adverse Reactions: Allergies Allergy/AdvReac Type Severity Reaction Status Date / Time No Known Allergies Allergy Verified 08/13/17 18:53 Physical Exam - Constitutional Appears: Well - Head Exam Head Exam: ATRAUMATIC, NORMAL INSPECTION, NORMOCEPHALIC - Eye Exam Eye Exam: EOMI, Normal appearance, PERRL Pupil Exam: NORMAL ACCOMODATION, PERRL - ENT Exam ENT Exam: Mucous Membranes Moist, Normal Exam - Neck Exam Neck exam: Positive for: Normal Inspection - Respiratory Exam Respiratory Exam: Decreased Breath Sounds - Cardiovascular Exam Cardiovascular Exam: REGULAR RHYTHM, +S1, +S2 - GI/Abdominal Exam GI & Abdominal Exam: Diminished Bowel Sounds, Soft - Rectal Exam Rectal Exam: Deferred Results - Vital Signs Recent Vital Signs: Last Vital Signs Temp 98.7 F 08/14/17 08:08 Pulse 79 08/14/17 08:08 Resp 20 08/14/17 08:08 BP 114/71 08/14/17 08:08 Pulse Ox 98 08/14/17 08:08 - Labs Result Diagrams: 08/13/17 19:51 08/13/17 19:51 Labs: Laboratory Results - last 24 hr 08/13/17 08/13/17 08/13/17 19:51 19:51 19:55 WBC 6.6 RBC 4.91 Hgb 14.7 Hct 43.1 MCV 87.8 MCH 29.9 MCHC 34.0 RDW 13.1 Plt Count 237 MPV 10.0 Neut % (Auto) 70.0 Lymph % (Auto) 20.3 [place] % (Auto) 8.0 Eos % (Auto) 0.8 Baso % (Auto) 0.9 Neut # 4.6 Lymph # 1.3 [place] # 0.5 Eos # 0.1 Baso # 0.1 Puncture Site pCO2 pO2 HCO3 ABG pH ABG Total CO2 ABG O2 Saturation ABG Base Excess [place] Test ABG Potassium A-a O2 Difference Respiratory Index Glucose Lactate Liter Flow FiO2 Sodium 123 L Potassium 5.1 Chloride 83 L Carbon Dioxide 28 Anion Gap 16 BUN 20 Creatinine 0.5 L Est GFR ( Amer) > 60 Est GFR (Non-Af Amer) > 60 POC Glucose (mg/dL) Random Glucose 484 H* D Calcium 9.1 Total Bilirubin 1.0 AST 41 ALT 52 Alkaline Phosphatase 197 H D Total Protein 7.4 Albumin 4.4 Globulin 3.1 Albumin/Globulin Ratio 1.4 Arterial Blood Potassium Urine Color Colorless Urine Clarity Clear Urine pH 6.0 Ur Specific [place] 1.028 Urine Protein Negative Urine Glucose (UA) 3+ H Urine Ketones 2+ H Urine Blood Negative Urine Nitrate Negative Urine Bilirubin Negative Urine Urobilinogen Normal Ur Leukocyte Esterase Neg Urine WBC (Auto) < 1 Urine Opiates Screen Urine Methadone Screen Ur Barbiturates Screen Ur Phencyclidine Scrn Ur Amphetamines Screen U Benzodiazepines Scrn U Oth Cocaine Metabols U Cannabinoids Screen Serum Ketones Large 08/13/17 08/13/17 08/13/17 19:55 20:41 20:49 WBC RBC Hgb Hct MCV MCH MCHC RDW Plt Count MPV Neut % (Auto) Lymph % (Auto) [place] % (Auto) Eos % (Auto) Baso % (Auto) Neut # Lymph # [place] # Eos # Baso # Puncture Site Rba pCO2 41 pO2 119 H HCO3 25.9 ABG pH 7.41 ABG Total CO2 27.3 ABG O2 Saturation 99.2 H ABG Base Excess 1.2 [place] Test Pos ABG Potassium 3.2 L A-a O2 Difference -21.0 Respiratory Index -0.2 Glucose 279 H Lactate 1.9 Liter Flow 0 FiO2 21.0 Sodium 132.0 Potassium Chloride 98.0 Carbon Dioxide Anion Gap BUN Creatinine Est GFR ( Amer) Est GFR (Non-Af Amer) POC Glucose (mg/dL) 214 H Random Glucose Calcium Total Bilirubin AST ALT Alkaline Phosphatase Total Protein Albumin Globulin Albumin/Globulin Ratio Arterial Blood Potassium 3.2 L Urine Color Urine Clarity Urine pH Ur Specific [place] Urine Protein Urine Glucose (UA) Urine Ketones Urine Blood Urine Nitrate Urine Bilirubin Urine Urobilinogen Ur Leukocyte Esterase Urine WBC (Auto) Urine Opiates Screen Negative Urine Methadone Screen Negative Ur Barbiturates Screen Negative Ur Phencyclidine Scrn Negative Ur Amphetamines Screen Negative U Benzodiazepines Scrn Negative U Oth Cocaine Metabols Positive H U Cannabinoids Screen Positive H Serum Ketones 08/14/17 08/14/17 07:21 11:07 WBC RBC Hgb Hct MCV MCH MCHC RDW Plt Count MPV Neut % (Auto) Lymph % (Auto) [place] % (Auto) Eos % (Auto) Baso % (Auto) Neut # Lymph # [place] # Eos # Baso # Puncture Site pCO2 pO2 HCO3 ABG pH ABG Total CO2 ABG O2 Saturation ABG Base Excess [place] Test ABG Potassium A-a O2 Difference Respiratory Index Glucose Lactate Liter Flow FiO2 Sodium Potassium Chloride Carbon Dioxide Anion Gap BUN Creatinine Est GFR ( Amer) Est GFR (Non-Af Amer) POC Glucose (mg/dL) 373 H 438 H* Random Glucose Calcium Total Bilirubin AST ALT Alkaline Phosphatase Total Protein Albumin Globulin Albumin/Globulin Ratio Arterial Blood Potassium Urine Color Urine Clarity Urine pH Ur Specific [place] Urine Protein Urine Glucose (UA) Urine Ketones Urine Blood Urine Nitrate Urine Bilirubin Urine Urobilinogen Ur Leukocyte Esterase Urine WBC (Auto) Urine Opiates Screen Urine Methadone Screen Ur Barbiturates Screen Ur Phencyclidine Scrn Ur Amphetamines Screen U Benzodiazepines Scrn U Oth Cocaine Metabols U Cannabinoids Screen Serum Ketones Assessment & Plan - Assessment and Plan (Free Text) Plan: Abdominal CAT scan revealed reflux contrast into the distal esophagus a known case of Crohn's disease with small bowel prominence with incomplete distention Follow-up with Dr. Bhargavi Devries Follow-up with the GI doctor Continue with the current medications Hydrocortisone Insulin glargine as ordered Fingerstick 4 times daily Tramadol Zofran as needed Urine drug screen positive for cocaine Urine drug screen positive for cannabinoids
[2017-08-14] MEDS ORDERED: DiphenhydrAMINE 50 mg/ml Inj IVP ONE (21:27)
[2017-08-14] MEDS ORDERED: (Lantus) Insulin Glargine, Recombinant SC SCH ×2 (22:00)
--- NOTE | 2017-08-15 07:22 | CP.PCM.CON ---
<Benita Rodriguez - Last Filed: 08/15/17 08:49> History of Present Illness - History of Present Illness History of Present Illness: GI Fellow PGY4 Consult Note This is a 26 year old male with h/o uncontrolled DM, schizophrenia, illicit drug abuse who presents for evaluation of abdominal pain, nausea and vomiting. Pt also reports constant rectal pain with daily diarrhea, pt reports he was diagnosed with [place]'s [place] [facility] [place] but never followed up with GI doctor or received treatment, reports intermittent rectal bleeding, colonoscopy 6months ago at [facility] [place] but does not recall the results. Pt has a hx of DKA/Hyperglycemia and reports he ran out of his insulin and that is why he came to the hospital. Pt's BG are uncontrolled in 400 range with recent HgbA1c 13.1. Pt was recently discharged from [facility] during that time he was noticed to have coffee ground emesis, pt underwent EGD 07/20/17 which showed LAGC esophagitis, duodenitis with ulcerations in duodenal bulb. Pt was prescribed PPI bid and carafate BID which pt is noncompliant with taking medications. Pt also admits to cocaine use and marijuana use, last use was one day prior to arrival. Pt reports that he is tolerating a diet with no further nausea or vomiting, reports constant rectal pain refusing rectal exam. ROS: A 12pt ROS was negative except as above. 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) - RENAL Hx Chronic Kidney Disease: No - ENDOCRINE/METABOLIC Hx Endocrine Disorders: Yes Hx Diabetes Mellitus Type 1: Yes (insulin dependent) - HEMATOLOGICAL/ONCOLOGICAL Hx Blood Disorders: No Hx Human Immunodeficiency Virus (HIV): No - INTEGUMENTARY Hx Dermatological Problems: No - MUSCULOSKELETAL/RHEUMATOLOGICAL Hx Musculoskeletal Disorders: No Hx Falls: No - GASTROINTESTINAL Hx Gastrointestinal Disorders: Yes Hx Crohn's Disease: Yes - GENITOURINARY/GYNECOLOGICAL Hx Genitourinary Disorders: No - PSYCHIATRIC Hx Psychophysiologic Disorder: Yes Hx Bipolar Disorder: Yes Hx Depression: Yes Hx Schizophrenia: Yes Hx Substance Use: Yes (Marijuana) - SURGICAL HISTORY Hx Surgeries: Yes Other/Comment: wired Jaw - ANESTHESIA Hx Anesthesia: Yes Hx Anesthesia Reactions: No Hx Malignant Hyperthermia: No Meds Allergies/Adverse Reactions: Allergies Allergy/AdvReac Type Severity Reaction Status Date / Time No Known Allergies Allergy Verified 08/13/17 18:53 - Medications Medications: Current Medications Enoxaparin Sodium (Lovenox) 40 mg SC DAILY [facility] Last Admin: 08/14/17 10:42 Dose: 40 mg Escitalopram Oxalate (Lexapro) 20 mg PO DAILY [facility] Last Admin: 08/14/17 10:42 Dose: 20 mg Hydrocortisone (Anusol-Hc) 25 mg RC BID [facility] Last Admin: 08/14/17 18:06 Dose: Not Given Sodium Chloride (Sodium Chloride 0.9%) 1,000 mls @ 75 mls/hr IV .[id number] [facility] Last Admin: 08/14/17 17:10 Dose: 75 mls/hr Insulin Aspart (Novolog) 8 unit SC AC [facility] Last Admin: 08/14/17 17:10 Dose: 8 unit Insulin Aspart (Novolog) 0 unit SC ACHS [facility] PRN Reason: Protocol Last Admin: 08/14/17 22:26 Dose: Not Given Insulin Glargine (Lantus) 30 unit SC HS [facility] Last Admin: 08/14/17 22:28 Dose: 30 unit Mirtazapine (Remeron) 30 mg PO HS [facility] Last Admin: 08/14/17 21:37 Dose: 30 mg Ondansetron HCl (Zofran Tab) 4 mg PO Q8H PRN PRN Reason: Nausea/Vomiting Last Admin: 08/14/17 12:51 Dose: 4 mg Pantoprazole Sodium (Protonix Ec Tab) 40 mg PO BID [facility] Sucralfate (Carafate Tab) 1 gm PO BID [facility] Last Admin: 08/14/17 18:07 Dose: 1 gm Tramadol HCl (Ultram) 50 mg PO TID [facility] Last Admin: 08/14/17 18:14 Dose: 50 mg Physical Exam - Constitutional Appears: Non-toxic, No Acute Distress, Cachectic, Chronically Ill - Head Exam Head Exam: ATRAUMATIC, NORMAL INSPECTION, NORMOCEPHALIC - Eye Exam Eye Exam: EOMI, Normal appearance, PERRL Pupil Exam: NORMAL ACCOMODATION, PERRL - ENT Exam ENT Exam: Mucous Membranes Moist, Normal Exam - Neck Exam Neck exam: Positive for: Normal Inspection - Respiratory Exam Respiratory Exam: Clear to Auscultation Bilateral, NORMAL BREATHING PATTERN - Cardiovascular Exam Cardiovascular Exam: REGULAR RHYTHM - GI/Abdominal Exam GI & Abdominal Exam: Normal Bowel Sounds, Soft. absent: Distended, Guarding, Organomegaly, Tenderness - Rectal Exam Rectal Exam: Deferred Additional comments: pt refused rectal exam - Extremities Exam Extremities exam: Positive for: full ROM, normal inspection - Back Exam Back exam: NORMAL INSPECTION - Neurological Exam Neurological exam: Alert, Oriented x3 - Psychiatric Exam Psychiatric exam: Normal Affect, Normal Mood - Skin Skin Exam: Dry, Intact, Normal Color, Warm Results - Vital Signs Recent Vital Signs: Last Vital Signs Temp 98.6 F 08/15/17 00:00 Pulse 77 08/15/17 00:00 Resp 20 08/15/17 00:00 BP 114/60 08/15/17 00:00 Pulse Ox 96 08/15/17 00:00 - Labs Result Diagrams: 08/13/17 19:51 08/13/17 19:51 Labs: Laboratory Results - last 24 hr 08/14/17 08/14/17 08/14/17 07:21 11:07 16:10 POC Glucose (mg/dL) 373 H 438 H* 240 H 08/14/17 21:51 POC Glucose (mg/dL) 258 H Assessment & Plan - Assessment and Plan (Free Text) Assessment: This is a 26y male with abdominal pain, nausea and vomiting. 1. Abdominal pain, Nausea and Vomiting ddx: gastroparesis, cannabis induced cyclical vomiting syndrome 2. Rectal pain, reported hx of Crohn's Disease 3. Illicit drug use 4. LAGC erosive esophagitis and duodenitis Plan: -Continue supportive care with IVF hydration, pain control and anti-emetics -Continue Diabetic diet with small frequent meals as tolerated -Pt with recent EGD 07/20/17 with LAGC esophagitis and duodenitis -Continue PPI bid and carafate bid -Abdominal pain, nausea and vomiting improving likely from hyperglycemia, recommend tight glycemic control with insulin therapy -Counseled on marijuana and cocaine cessation which can be contributing to symptoms of cyclical vomiting syndrome vs ischemia from vasoconstriction -Pt with complaints of rectal pain and loose stool associated with rectal bleeding, pt refusing rectal exam and anusol suppository, will attempt to get records from recent colonoscopy at [facility] [place] for possible dx of Crohn's Disease -Will follow up with repeat CBC, CMP -Will continue to follow pt closely <Efrain Troy - Last Filed: 08/15/17 09:17> Meds - Medications Medications: Current Medications Enoxaparin Sodium (Lovenox) 40 mg SC DAILY [facility] Last Admin: 08/14/17 10:42 Dose: 40 mg Escitalopram Oxalate (Lexapro) 20 mg PO DAILY [facility] Last Admin: 08/14/17 10:42 Dose: 20 mg Hydrocortisone (Anusol-Hc) 25 mg RC BID [facility] Last Admin: 08/14/17 18:06 Dose: Not Given Sodium Chloride (Sodium Chloride 0.9%) 1,000 mls @ 75 mls/hr IV .[id number] [facility] Last Admin: 08/14/17 17:10 Dose: 75 mls/hr Insulin Aspart (Novolog) 8 unit SC AC [facility] Last Admin: 08/14/17 17:10 Dose: 8 unit Insulin Aspart (Novolog) 0 unit SC ACHS [facility] PRN Reason: Protocol Last Admin: 08/15/17 08:23 Dose: Not Given Insulin Glargine (Lantus) 30 unit SC HS [facility] Last Admin: 08/14/17 22:28 Dose: 30 unit Mirtazapine (Remeron) 30 mg PO HS [facility] Last Admin: 08/14/17 21:37 Dose: 30 mg Ondansetron HCl (Zofran Tab) 4 mg PO Q8H PRN PRN Reason: Nausea/Vomiting Last Admin: 08/14/17 12:51 Dose: 4 mg Pantoprazole Sodium (Protonix Ec Tab) 40 mg PO BID [facility] Sucralfate (Carafate Tab) 1 gm PO BID [facility] Last Admin: 08/14/17 18:07 Dose: 1 gm Tramadol HCl (Ultram) 50 mg PO TID [facility] Last Admin: 08/14/17 18:14 Dose: 50 mg Results - Vital Signs Recent Vital Signs: Last Vital Signs Temp 97.8 F 01/02/18 08:24 Pulse 88 08/15/17 08:24 Resp 20 08/15/17 08:24 BP 102/70 08/15/17 08:24 Pulse Ox 97 08/15/17 08:24 - Labs Result Diagrams: 08/13/17 19:51 08/13/17 19:51 Labs: Laboratory Results - last 24 hr 08/14/17 08/14/17 08/14/17 11:07 16:10 21:51 POC Glucose (mg/dL) 438 H* 240 H 258 H 08/15/17 07:09 POC Glucose (mg/dL) 281 H Attending/Attestation - Attestation I have personally seen and examined this patient.: Yes I have fully participated in the care of the patient.: Yes I have reviewed all pertinent clinical information: Yes Notes (Text): 08/15/17 09:09 I have seen and examined patient with GI fellow. Agree with above documentation with the following additions. In brief, this is a 26 year old male with history of schizophrenia, uncontrolled DM, polysubstance abuse who presents to hospital with complaint of abdominal pain, nausea, and vomiting. Patient reports running out of insulin therapy and has been without medication over recent holiday period. Since hospital admission his blood sugar has been more controlled and his symptoms of abdominal pain, nausea, vomiting have resolved. He is seen at bedside eating breakfast without any difficulty. He had a recent hospital admission for similar complaints one month ago and underwent EGD showing esohagitis, gastritis, duodenitis. Additionally, he reports a prior history of "crohn's disease" which was diagnosed several years ago and he was never placed on outpatient maintenance therapy. He claims to have had a recent colonoscopy at [facility] [place] by [place]. Veloz which was normal as per patient. Abdominal pain, nausea, vomiting - resolved Uncontrolled DM Schizophrenia Polysubstance abuse - recent tox screen positive for marijuana (patient admits to daily use) and cocaine - Diabetic diet as tolerated - Follow up endocrinology recommendations, patient requires strict blood glucose control - Continue with PPI and carafate therapy - Substance abuse counseling. Daily use of marijuana may contribute to ongoing patient symptoms. - No further planned GI interventions, following hospital discharge patient should follow up with primary GI physician (Dr. Veloz) for further management of questionable underlying inflammatory bowel disease. Will sign off case, please reconsult as necessary, thank you.
[2017-08-15] MEDS: (Novolog) Insulin Aspart, Recombinant 100 u/ml 10 ml vial SC SCH ×4 (08:23→11:55)
[2017-08-15 08:25] VITALS: BP 102/70; PULSE 88; TEMP 97.8; O2SAT 97
[2017-08-15] MEDS: Enoxaparin 40 mg Syringe SC SCH (09:27)
[2017-08-15] MEDS ORDERED: Pantoprazole 40 mg EC Tab PO SCH (10:00)
--- NOTE | 2017-08-15 10:46 | CP.PCM.PN ---
Subjective - Date & Time of Evaluation Date of Evaluation: 08/15/17 Time of Evaluation: 09:20 - Subjective Subjective: clinically same Objective - Vital Signs/Intake and Output Vital Signs (last 24 hours): Temp Pulse Resp BP Pulse Ox 97.8 F 88 20 102/70 97 08/15/17 08:24 08/15/17 08:24 08/15/17 08:24 08/15/17 08:24 08/15/17 08:24 Intake and Output: 08/15/17 08/15/17 06:59 18:59 Intake Total 1700 Output Total 900 Balance 800 - Medications Medications: Current Medications Enoxaparin Sodium (Lovenox) 40 mg SC DAILY [facility] Last Admin: 08/15/17 09:27 Dose: 40 mg Escitalopram Oxalate (Lexapro) 20 mg PO DAILY [facility] Last Admin: 08/15/17 09:27 Dose: 20 mg Hydrocortisone (Anusol-Hc) 25 mg RC BID [facility] Last Admin: 08/15/17 09:30 Dose: Not Given Sodium Chloride (Sodium Chloride 0.9%) 1,000 mls @ 75 mls/hr IV .[id number] [facility] Last Admin: 08/14/17 17:10 Dose: 75 mls/hr Insulin Aspart (Novolog) 8 unit SC AC [facility] Last Admin: 08/15/17 08:27 Dose: 8 unit Insulin Aspart (Novolog) 0 unit SC ACHS [facility] PRN Reason: Protocol Last Admin: 08/15/17 08:23 Dose: Not Given Insulin Glargine (Lantus) 30 unit SC HS [facility] Last Admin: 08/14/17 22:28 Dose: 30 unit Mirtazapine (Remeron) 30 mg PO HS [facility] Last Admin: 08/14/17 21:37 Dose: 30 mg Ondansetron HCl (Zofran Tab) 4 mg PO Q8H PRN PRN Reason: Nausea/Vomiting Last Admin: 08/14/17 12:51 Dose: 4 mg Pantoprazole Sodium (Protonix Ec Tab) 40 mg PO BID [facility] Last Admin: 08/15/17 09:27 Dose: 40 mg Sucralfate (Carafate Tab) 1 gm PO BID [facility] Last Admin: 08/15/17 09:27 Dose: 1 gm Tramadol HCl (Ultram) 50 mg PO TID [facility] Last Admin: 08/15/17 09:39 Dose: Not Given - Labs Labs: 08/13/17 19:51 08/13/17 19:51 - Constitutional Appears: Well - Head Exam Head Exam: ATRAUMATIC, NORMAL INSPECTION, NORMOCEPHALIC - Eye Exam Eye Exam: EOMI, Normal appearance, PERRL Pupil Exam: NORMAL ACCOMODATION, PERRL - ENT Exam ENT Exam: Mucous Membranes Moist, Normal Exam - Neck Exam Neck Exam: Full ROM, Normal Inspection. absent: Lymphadenopathy - Respiratory Exam Respiratory Exam: Decreased Breath Sounds - Cardiovascular Exam Cardiovascular Exam: REGULAR RHYTHM, +S1, +S2 - GI/Abdominal Exam GI & Abdominal Exam: Soft, Diminished Bowel Sounds - Rectal Exam Rectal Exam: Deferred
--- NOTE | 2017-08-15 11:01 | CP.PCM.PN ---
Subjective - Date & Time of Evaluation Date of Evaluation: 08/15/17 Time of Evaluation: 10:52 - Subjective Subjective: Progress Note for Dr. Romero's Service Patient seen and examined at bedside. He complains of abdominal cramping. He has been tolerating PO intake and has had bowel movements that have been normal. No other acute complaints. Objective - Vital Signs/Intake and Output Vital Signs (last 24 hours): Temp Pulse Resp BP Pulse Ox 97.8 F 88 20 102/70 97 08/15/17 08:24 08/15/17 08:24 08/15/17 08:24 08/15/17 08:24 08/15/17 08:24 Intake and Output: 08/15/17 08/15/17 06:59 18:59 Intake Total 1700 Output Total 900 Balance 800 - Medications Medications: Current Medications Enoxaparin Sodium (Lovenox) 40 mg SC DAILY [facility] Last Admin: 08/15/17 09:27 Dose: 40 mg Escitalopram Oxalate (Lexapro) 20 mg PO DAILY [facility] Last Admin: 08/15/17 09:27 Dose: 20 mg Hydrocortisone (Anusol-Hc) 25 mg RC BID [facility] Last Admin: 08/15/17 09:30 Dose: Not Given Sodium Chloride (Sodium Chloride 0.9%) 1,000 mls @ 75 mls/hr IV .[id number] [facility] Last Admin: 08/14/17 17:10 Dose: 75 mls/hr Insulin Aspart (Novolog) 8 unit SC AC [facility] Last Admin: 08/15/17 08:27 Dose: 8 unit Insulin Aspart (Novolog) 0 unit SC ACHS [facility] PRN Reason: Protocol Last Admin: 08/15/17 08:23 Dose: Not Given Insulin Glargine (Lantus) 30 unit SC HS [facility] Last Admin: 08/14/17 22:28 Dose: 30 unit Mirtazapine (Remeron) 30 mg PO HS [facility] Last Admin: 08/14/17 21:37 Dose: 30 mg Ondansetron HCl (Zofran Tab) 4 mg PO Q8H PRN PRN Reason: Nausea/Vomiting Last Admin: 08/14/17 12:51 Dose: 4 mg Pantoprazole Sodium (Protonix Ec Tab) 40 mg PO BID [facility] Last Admin: 08/15/17 09:27 Dose: 40 mg Sucralfate (Carafate Tab) 1 gm PO BID [facility] Last Admin: 08/15/17 09:27 Dose: 1 gm Tramadol HCl (Ultram) 50 mg PO TID [facility] Last Admin: 08/15/17 09:39 Dose: Not Given - Labs Labs: 08/13/17 19:51 08/13/17 19:51 - Constitutional Appears: No Acute Distress - Head Exam Head Exam: ATRAUMATIC, NORMAL INSPECTION - Eye Exam Eye Exam: EOMI - ENT Exam ENT Exam: Mucous Membranes Moist - Respiratory Exam Respiratory Exam: Clear to Ausculation Bilateral, NORMAL BREATHING PATTERN - Cardiovascular Exam Cardiovascular Exam: REGULAR RHYTHM, +S1, +S2 - GI/Abdominal Exam GI & Abdominal Exam: Soft. absent: Tenderness - Neurological Exam Neurological Exam: Alert, Awake, Oriented x3 - Skin Skin Exam: Dry, Warm Assessment and Plan - Assessment and Plan (Free Text) Plan: IDDM with Nausea and Abdominal Pain Hyperglycemia vs Crohns vs colitis vs substance abuse CT abdomen/pelvis- 08/13/2017- distal small bowel thickening Endocrinology consulted- Dr. Kaplan - naty appreciated Labs: A1C - 13.1 (07/20) Medications: ISS Lantus 30U SC HS GI was consulted - Dr. Troy - naty appreciated Carafate 1g po BID Protonix Pt with recent EGD 07/20/17 with LAGC esophagitis and duodenitis as per patient recent colon[place] [facility] [place] Veloz which was normal- questionable Crohn's diagnosis following hospital discharge patient should follow up with primary GI physician (Dr. Veloz) Diabetic diet as tolerated Ultram 50mg PO TID prn pain Anusol-HC 25mg RC BID Schizophrenia Lexapro 20mg PO daily Remeron 30mg PO HS Drug abuse Encouraged cessation Encouraged detox positive for marijuana and cocaine Prophylaxis Lovenox 40mg SC daily Zofran 4mg PO q8hrs prn Protonix 40mg PO BID Case discussed with Dr. Romero All management as per Dr. Romero
--- NOTE | 2017-08-15 11:30 | CP.PCM.CON ---
History of Present Illness - History of Present Illness History of Present Illness: Palliative consult called for symptoms management and goals of care discussion Patient is a 26 o male admitted to the hospital with abdominal and rectal pain and uncontrolled DM. Blod sugar was around 400 and HbA1C 13.1. Upon admission, CT abd showed thickening or inflammation of bowel wall. GI consult called and patient diagnosed with gastroparesis and cannabis induced cyclic vomiting. On 07/21/17 patient was admitted with similar symptoms, treated for dehydration and hypokalemia. Between two admissions patient was not getting the short acting insulin, claiming he was not able to obtain prescriptions for it and when he got it, pharmacy refused to issue the drug due to insurance issues. PMH: Bipolar disorder, schizophrnia, Chron's disease,DM, depression, denies HIV Soc. Hx: lives alone, unemployed, smokes Marijuana for chronic pain, admits using cocaine from his uncle Fam. Hx: denies any significant medical Hx Review of Systems - Constitutional Constitutional: absent: As Per HPI, Anorexia, Chills, Daytime Sleepiness, Excessive Sweating, Fatigue, Fever, Frequent Falls, Headache, Increased Appetite , Lethargy, Malaise, Night Sweats, Snoring, Sleep Apnea, Weight Gain, Weight Loss, Weakness, Other - EENT Eyes: absent: As Per HPI, Blind Spots, Blurred Vision, Change in Vision, Decreased Night Vision, Diplopia, Discharge, Dry Eye, Exophthalmos, Floaters, Irritation, Itchy Eyes, Loss of Peripheral Vision, Pain, Photophobia, Requires Corrective Lenses, Sees Flashes, Spots in Vision, Tunnel Vision, Other Visual Disturbances, Loss of Vision, Other Ears: absent: As Per HPI, Decreased Hearing, Ear Discharge, Ear Pain, Tinnitus, Abnormal Hearing, Disequilibrium, Dizziness, Other Nose/Mouth/Throat: absent: As Per HPI, Epistaxis, Nasal Congestion, Nasal Discharge, Nasal Obstruction, Nasal Trauma, Nose Pain, Post Nasal Drip, Sinus Pain, Sinus Pressure, Bleeding Gums, Change in Voice, Dental Pain, Dry Mouth, Dysphagia, Halitosis, Hoarsness, Lip Swelling, Mouth Lesions, Mouth Pain, Odynophagia, Sore Throat, Throat Swelling, Tongue Swelling, Facial Pain, Neck Pain, Neck Mass, Other - Cardiovascular Cardiovascular: absent: As Per HPI, Acrocyanosis, Chest Pain, Chest Pain at Rest , Chest Pain with Activity, Claudication, Diaphoresis, Dyspnea, Dyspnea on Exertion, Edema, Irregular Heart Rhythm, Pain Radiating to Arm/Neck/Jaw, Leg Edema, Leg Ulcers, Lightheadedness, Orthopnea, Palpitations, Paroxysmal Nocturnal Dyspnea, Pedal Edema, Radiating Pain, Rapid Heart Rate, Slow Heart Rate, Syncope, Other - Gastrointestinal Gastrointestinal: Abdominal Pain, Nausea, Vomiting - Genitourinary Genitourinary: absent: As Per HPI, Change in Urinary Stream, Difficulty Urinating, Dysuria, Flank Pain, Hematuria, Pyuria, Nocturia, Urinary Incontinence, Urinary Frequency, Urinary Hesitance, Urinary Urgency, Voiding Freq/Small Amts, Freq UTI, Hx Renal/Bladder Calculi, Hx /Renal Surgery, Bladder Distension, Other - Musculoskeletal Musculoskeletal: absent: As Per HPI, Abnormal Gait, Arthralgias, Atrophy, Back Pain, Deformity, Joint Swelling, Limited Range of Motion, Loss of Height, Muscle Cramps, Muscle Weakness, Myalgias, Neck Pain, Numbness, Radiating Pain into Limb, Stiffness, Tingling, Other - Integumentary Integumentary: absent: As Per HPI, Acne, Alopecia, Bleeding Lesions, Change in Hair, Change in Nails, Change in Pigmentation, Changing Lesions, Dry Skin, Erythema, Furuncle, Hirsutism, Lesions, New Lesions, Non-Healing Lesions, Photosensitivity, Pruritus, Rash, Skin Pain, Skin Ulcer, Sores, Striae, Swelling , Unusual Bruising, Wounds, Jaundice, Other - Neurological Neurological: absent: As Per HPI, Abnormal Gait, Abnormal Hearing, Abnormal Movements, Abnormal Speech, Behavioral Changes, Burning Sensations, Confusion, Convulsions, Disequilibrium, Dizziness, Numbness, Focal Weakness, Frequent Falls , Headaches, Lack of Coordination, Loss of Vision, Memory Loss, Paresthesias, Radicular Pain, Restless Legs, Sensory Deficit, Syncope, Tingling, Tremor, Vertigo, Weakness, Other Visual Disturbances, Other - Psychiatric Psychiatric: Anxiety, Irritability - Endocrine Endocrine: Polydipsia, Polyphagia - Hematologic/Lymphatic Hematologic: absent: As Per HPI, Easy Bleeding, Easy Bruising, Lymphadenopathy, Other 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) - RENAL Hx Chronic Kidney Disease: No - ENDOCRINE/METABOLIC Hx Endocrine Disorders: Yes Hx Diabetes Mellitus Type 1: Yes (insulin dependent) - HEMATOLOGICAL/ONCOLOGICAL Hx Blood Disorders: No Hx Human Immunodeficiency Virus (HIV): No - INTEGUMENTARY Hx Dermatological Problems: No - MUSCULOSKELETAL/RHEUMATOLOGICAL Hx Musculoskeletal Disorders: No Hx Falls: No - GASTROINTESTINAL Hx Gastrointestinal Disorders: Yes Hx Crohn's Disease: Yes - GENITOURINARY/GYNECOLOGICAL Hx Genitourinary Disorders: No - PSYCHIATRIC Hx Psychophysiologic Disorder: Yes Hx Bipolar Disorder: Yes Hx Depression: Yes Hx Schizophrenia: Yes Hx Substance Use: Yes (Marijuana) - SURGICAL HISTORY Hx Surgeries: Yes Other/Comment: wired Jaw - ANESTHESIA Hx Anesthesia: Yes Hx Anesthesia Reactions: No Hx Malignant Hyperthermia: No Meds Allergies/Adverse Reactions: Allergies Allergy/AdvReac Type Severity Reaction Status Date / Time No Known Allergies Allergy Verified 08/13/17 18:53 - Medications Medications: Current Medications Enoxaparin Sodium (Lovenox) 40 mg SC DAILY [facility] Last Admin: 08/15/17 09:27 Dose: 40 mg Escitalopram Oxalate (Lexapro) 20 mg PO DAILY [facility] Last Admin: 08/15/17 09:27 Dose: 20 mg Hydrocortisone (Anusol-Hc) 25 mg RC BID [facility] Last Admin: 08/15/17 09:30 Dose: Not Given Sodium Chloride (Sodium Chloride 0.9%) 1,000 mls @ 75 mls/hr IV .[id number] [facility] Last Admin: 08/14/17 17:10 Dose: 75 mls/hr Insulin Aspart (Novolog) 8 unit SC AC [facility] Last Admin: 08/15/17 08:27 Dose: 8 unit Insulin Aspart (Novolog) 0 unit SC ACHS [facility] PRN Reason: Protocol Last Admin: 08/15/17 08:23 Dose: Not Given Insulin Glargine (Lantus) 30 unit SC HS [facility] Last Admin: 08/14/17 22:28 Dose: 30 unit Mirtazapine (Remeron) 30 mg PO HS [facility] Last Admin: 08/14/17 21:37 Dose: 30 mg Ondansetron HCl (Zofran Tab) 4 mg PO Q8H PRN PRN Reason: Nausea/Vomiting Last Admin: 08/14/17 12:51 Dose: 4 mg Pantoprazole Sodium (Protonix Ec Tab) 40 mg PO BID [facility] Last Admin: 08/15/17 09:27 Dose: 40 mg Sucralfate (Carafate Tab) 1 gm PO BID [facility] Last Admin: 08/15/17 09:27 Dose: 1 gm Tramadol HCl (Ultram) 50 mg PO TID [facility] Last Admin: 08/15/17 09:39 Dose: Not Given Physical Exam - Constitutional Appears: No Acute Distress - Head Exam Head Exam: ATRAUMATIC, NORMAL INSPECTION, NORMOCEPHALIC - Eye Exam Eye Exam: EOMI, Normal appearance, PERRL Pupil Exam: NORMAL ACCOMODATION, PERRL - ENT Exam ENT Exam: Mucous Membranes Moist, Normal Exam - Neck Exam Neck exam: Positive for: Normal Inspection - Respiratory Exam Respiratory Exam: Clear to Auscultation Bilateral, NORMAL BREATHING PATTERN - Cardiovascular Exam Cardiovascular Exam: REGULAR RHYTHM - GI/Abdominal Exam GI & Abdominal Exam: Guarding, Normal Bowel Sounds - Rectal Exam Rectal Exam: Deferred - Exam Exam: NORMAL INSPECTION - Extremities Exam Extremities exam: Positive for: normal inspection - Back Exam Back exam: NORMAL INSPECTION - Neurological Exam Neurological exam: Alert, Oriented x3 - Psychiatric Exam Psychiatric exam: Agitated - Skin Skin Exam: Pallor Results - Vital Signs Recent Vital Signs: Last Vital Signs Temp 97.8 F 08/15/17 08:24 Pulse 88 08/15/17 08:24 Resp 20 08/15/17 08:24 BP 102/70 08/15/17 08:24 Pulse Ox 97 08/15/17 08:24 - Labs Result Diagrams: 08/13/17 19:51 08/13/17 19:51 Labs: Laboratory Results - last 24 hr 08/14/17 08/14/17 08/14/17 11:07 16:10 21:51 POC Glucose (mg/dL) 438 H* 240 H 258 H 08/15/17 07:09 POC Glucose (mg/dL) 281 H Assessment & Plan - Assessment and Plan (Free Text) Assessment: Palliative consult Code status Full Code, there is no advance directive on chart, PPS 50% I reviewed medical records, all diagnostic studies, examined and interviewed patient in the bed. Patient is alert, oriented X 3 in no acute distress. Patient appears easily irritated, acts anxiously to the next bed talking. Skin looks pale. Complains of diffuse abdominal pain. Reports moving BM this morning, denies rectal pain. Pain is described as a deep, dull, visceral , abdominal pain . Per patient , he smokes Marijuana at home constantly and daily for that pain. Patient firmly refuses the PO pain meds and is requesting and IV pain meds. BP 102/70, O2Sat 97% RA. Goals of care discussed with patient . Patient denies opioid and elicit drugs abuse; instead he feels , that is the only way to suit his pain. Patient does not think he has physical dependency of opioids nor that the Rehab program would be beneficial for him. Patient also denies non compliance with Insulin; instead he blames providers for inadequate treatment and timely prescriptions. Patient's goal is to be pain free or within manageable level . We discussed the Khron's disease symptoms and its management. Patient educated on risks of uncontrolled DM . The need for regular Insulin use reinforced. Impression * This is a very young man with complex medical Hx, non compliance with medical care and has dependency of illicit drugs * Patient denies illicit drug abuse and dependency, instead he is convinced those were used only for management of his chronic pain * Mild to moderate abdominal pain most likely related to CT abdomen findings of inflammation * Hyperglicemia Suggestion * Would refer to Psychiatrist for management of his Bi Polar disorder and schizophrenia * Reinforce teaching on DM * Control blood sugar * Abdominal discomfort could be managed with PPIs or Carafate Thank you for consulting Palliative care
[2017-08-15 12:10] LABS: BASO # 0.1 K/uL (0.0-0.2); BASO % 1.1 % (0.0-2.0); EOS # 0.1 K/uL (0.0-0.7); EOS % 1.5 % (0.0-4.0); HEMOGLOBIN 15.3 g/dL (12.0-18.0); LYMPH # 1.8 K/uL (1.0-4.3); LYMPH % 35.5 % (20.0-40.0); MEAN CORPUSCULAR HEMOGLOBIN 29.7 pg (27.0-31.0); MEAN CORPUSCULAR HGB CONC 33.8 g/dL (33.0-37.0); MEAN PLATELET VOLUME 9.7 fL (7.2-11.7); MONO # 0.5 K/uL (0.0-0.8); MONO % 9.7 % (0.0-10.0); NEUT # 2.7 K/uL (1.8-7.0); NEUT % 52.2 % (50.0-75.0); NRBC % 0.1 % (0.0-2.0); RBC 5.14 Mil/uL (4.40-5.90); RED CELL DISTRIBUTION WIDTH 13.5 % (11.5-14.5); WHITE BLOOD COUNT 5.1 K/uL (4.8-10.8)
[2017-08-15 12:56] LABS: ALB/GLOB RATIO 1.3 (1.0-2.1); ALBUMIN 3.9 g/dL (3.5-5.0); ALT/SGPT 41 U/L (21-72); AST/SGOT 27 U/L (17-59); BLOOD UREA NITROGEN 11 mg/dL (9-20); CALCIUM 8.4 mg/dl (8.6-10.4); GFR AFRICAN-AMERICAN > 60; GFR NON-AFRICAN AMERICAN > 60
--- NOTE | 2017-08-15 22:49 | PN ---
DATE: ENDOCRINOLOGY FOLLOWUP NOTE LOCATION: In the room 357. SUBJECTIVE: This is a 26-year-old male with recent uncontrolled type 1 insulin-dependent diabetes, now being followed closely for metabolic management. His glycemic levels are fluctuating as noted with glucose levels today ranging from 229 to 281 mg/dL. His latest chemistry shows a BUN of 11, sodium 132, potassium 3.3, chloride 93, CO2 of 26, glucose 222, and creatinine 0.6. He also is undergoing management for exacerbation of Crohn disease with recurrent abdominal pain as noted. So, at this time, we will modify once again his basal and bolus insulin regimen and increase the Lantus to 34 units subcu at bedtime daily as ordered. We will also increase the NovoLog to 12 units subcu t.i.d. before meals as given. We will continue the low-dose correction scale using NovoLog insulin as ordered. We will follow and advise accordingly. Kayce Kaplan MD
[2017-08-17] MEDS ORDERED: Pneumococcal 23-Valent Vaccine IM ONE (10:00)
[2017-08-17] MEDS ORDERED: Influenza Vaccine 60 mcg/0.5 mL SYR (4YR UP) IM ONE (10:00)
== END 2017-08-15 14:00 | disposition left against medical advice (07) ==
LOC: C.ER 18:49 → C.3T 23:43
PROVIDERS: ADMIT Internal Medicine Nephrology; ATTEND Internal Medicine Nephrology
DX: K50.90 Crohn's disease, unspecified, without complications (principal); E10.65 Type 1 diabetes mellitus with hyperglycemia; F20.9 Schizophrenia, unspecified; F31.9 Bipolar disorder, unspecified; F41.1 Generalized anxiety disorder; I11.9 Hypertensive heart disease without heart failure; H91.92 Unspecified hearing loss, left ear; H54.8 Legal blindness, as defined in USA; Z91.19 Patient's noncompliance with other medical treatment and regimen; Z91.14 Patient's other noncompliance with medication regimen; Z79.4 Long term (current) use of insulin; F12.90 Cannabis use, unspecified, uncomplicated; E10.43 Type 1 diabetes mellitus with diabetic autonomic (poly)neuropathy; E78.5 Hyperlipidemia, unspecified; K31.84 Gastroparesis; K22.10 Ulcer of esophagus without bleeding; K29.80 Duodenitis without bleeding; K62.89 Other specified diseases of anus and rectum
CPT/HCPCS: 36415; 74177; 80053; 80324; 80345; 80346; 80349; 80353; 80358; 80361; 81001; 82009; 82803; 82948; 83992; 85025; 96361; 96374; 96375; 99285; G0378; J1200; J1650; J2270; J7040; Q9967

== ENCOUNTER 2017-08-25 22:12 | Inpatient (IN) | payer MEDICAID ==
[2017-08-25 22:13] VITALS: BMI 13.6
[2017-08-25] MEDS ORDERED: Sodium Chloride 0.9% 1,000 ML IV ONE ×2 (22:49→23:34)
[2017-08-25 23:02] LABS: BASO % 0.7 % (0.0-2.0); EOS # 0.1 K/uL (0.0-0.7); EOS % 1.5 % (0.0-4.0); HEMOGLOBIN 13.5 g/dL (12.0-18.0); LYMPH # 1.3 K/uL (1.0-4.3); LYMPH % 28.3 % (20.0-40.0); MEAN CORPUSCULAR HEMOGLOBIN 30.1 pg (27.0-31.0); MEAN CORPUSCULAR HGB CONC 31.5 g/dL (33.0-37.0); MEAN PLATELET VOLUME 10.4 fL (7.2-11.7); MONO # 0.5 K/uL (0.0-0.8); MONO % 10.3 % (0.0-10.0); NEUT # 2.8 K/uL (1.8-7.0); NEUT % 59.2 % (50.0-75.0); RBC 4.49 Mil/uL (4.40-5.90); RED CELL DISTRIBUTION WIDTH 13.8 % (11.5-14.5); WHITE BLOOD COUNT 4.7 K/uL (4.8-10.8)
[2017-08-25] MEDS ORDERED: Sodium Chloride 0.9% 1,000 ML ONE (23:02)
[2017-08-25 23:03] LABS: MEAN CELL VOLUME 95.4 fL (80.0-94.0)
[2017-08-25 23:07] LABS: INR 0.9; PROTHROMBIN TIME 10.5 SECONDS (9.7-12.2)
[2017-08-25 23:11] LABS: VENOUS BLOOD GAS BASE EXCESS -11.6 mmol/L (0.0-2.0); VENOUS BLOOD GAS PCO2 36 mmHg (40-60); VENOUS BLOOD GAS PO2 36 mm/Hg (30-55); VENOUS BLOOD PH 7.23 (7.32-7.43)
[2017-08-25 23:24] LABS: ALB/GLOB RATIO 1.5 (1.0-2.1); ALT/SGPT 101 U/L (21-72); AST/SGOT 170 U/L (17-59); BLOOD UREA NITROGEN 16 mg/dL (9-20); CALCIUM 8.4 mg/dl (8.6-10.4); GFR AFRICAN-AMERICAN > 60; GFR NON-AFRICAN AMERICAN > 60; LIPASE 396 U/L (23-300)
[2017-08-25 23:31] LABS: URINE BILIRUBIN NEGATIVE (NEGATIVE); URINE BLOOD NEGATIVE (NEGATIVE); URINE CLARITY Clear (Clear); URINE COLOR Colorless (YELLOW); URINE GLUCOSE (UA) 3+ mg/dL (Normal); URINE LEUKOCYTE ESTERASE NEG Leu/uL (Negative); URINE NITRATE NEGATIVE (NEGATIVE); URINE PROTEIN NEGATIVE (NEGATIVE); URINE UROBILINOGEN NORMAL mg/dL (0.2-1.0)
[2017-08-25 23:45] LABS: BARBITURATES, UR NEGATIVE (NEGATIVE); BENZODIAZEPINES, UR NEGATIVE (NEGATIVE); PHENCYCLIDINE, UR NEGATIVE (NEGATIVE)
[2017-08-25] MEDS ORDERED: Insulin Human Regular 100 UNIT in Sodium Chloride 0.9% 99 ML IV SCH (23:45)
--- NOTE | 2017-08-25 23:45 | C.PDOC ---
History Of Present Illness Pt states that he ran out of his humalog last month and has only been taking his Lantus. Time Seen by Provider: 08/25/17 22:36 Chief Complaint (Nursing): Abdominal Pain History Per: Patient Onset/Duration Of Symptoms: Days (2) Current Symptoms Are (Timing): Still Present Severity: Moderate Location Of Pain/Discomfort: Diffuse Quality Of Discomfort: Cramping Associated Symptoms: Diarrhea Alleviating Factors: None Recent travel outside of the [place]: No Additional History Per: Prior Records Past Medical History Reviewed: Historical Data, Nursing Documentation, Vital Signs Vital Signs: Last Vital Signs Temp 98 F 08/25/17 22:29 Pulse 80 08/25/17 22:29 Resp 20 08/25/17 22:29 BP 106/66 08/25/17 22:29 Pulse Ox 95 08/25/17 23:47 - Medical History PMH: Bipolar Disorder, Crohn's Disease, Depression, Diabetes (Type 1), Schizophrenia Surgical History: No Surg Hx - [facility] (07/21/17) (07/21/17) Family History: States: Unknown Family Hx - Social History Hx Tobacco Use: No Hx Alcohol Use: No Hx Substance Use: Yes (Marijuana) - Immunization History Hx Tetanus Toxoid Vaccination: No Hx Influenza Vaccination: No Hx Pneumococcal Vaccination: No Review Of Systems Except As Marked, All Systems Reviewed And Found Negative. Constitutional: Positive for: Malaise. Negative for: Fever Cardiovascular: Negative for: Chest Pain Respiratory: Negative for: Shortness of Breath Gastrointestinal: Positive for: Abdominal Pain, Diarrhea. Negative for: Vomiting Genitourinary: Positive for: Frequency Musculoskeletal: Negative for: Neck Pain, Back Pain Neurological: Negative for: Weakness, Numbness, Seizures Physical Exam - Physical Exam Appears: Chronically Ill Skin: Normal Color, Warm, Dry Head: Atraumatic, Normacephalic Eye(s): bilateral: PERRL, EOMI Oral Mucosa: Dry Neck: Normal ROM, Supple Cardiovascular: Rhythm Regular Respiratory: Normal Breath Sounds, No Accessory Muscle Use Gastrointestinal/Abdominal: Soft, No Distention, No Guarding, No Rebound Extremity: Normal ROM Neurological/Psych: Oriented x3, Normal Motor, Normal Sensation ED Course And Treatment - Laboratory Results Result Diagrams: 08/25/17 22:57 08/25/17 22:57 Lab Interpretation: Abnormal Interpretation Of Abnormal: Severe hyperglycemia. Mild acidosis. ECG: Interpreted By Me, Viewed By Me ECG Rhythm: Sinus Rhythm, Nonspecific Changes Rate From EC O2 Sat by Pulse Oximetry: 95 Pulse Ox Interpretation: Normal - Physician Consult Information Physician Contacted: Estella Magana (ICU) Outcome Of Conversation: She evaluated pt in the ED and admitted to ICU. Progress - Interventions Interventions:: Observation, Intravenous fluid - Medications Administered Intravenous: Other (Insulin drip) - Data Reviewed Data Reviewed: Lab, EKG, Old records - Patient Status Patient status: Partially improved - Critical Care Citical Care: Excluding Proc Time Critical Care Time: 45 minutes - Continuity of Care Discussed patient case with:: Patient, ED Nurse, On-call PMD-pt unassigned Discussed pt. case with healthcare consultant/specialty: Pulmonary/Crit. Care - Patient Plan Patient Plan: Admission, ICU Disposition Discussed With : Glenis Edwards Comment: He accepted pt on his service. Doctor Will See Patient In The: Hospital Counseled Patient/Family Regarding: Studies Performed, Diagnosis - Disposition Disposition: HOSPITALIZED Disposition Time: 00:24 Condition: SERIOUS - Clinical Impression Clinical Impression: Hyperglycemic crisis in diabetes mellitus
[2017-08-25 23:56] LABS: OPIATES, UR NEGATIVE (NEGATIVE)
[2017-08-26] MEDS ORDERED: Sodium Chloride 0.9% 1,000 ML ONE (00:15)
--- NOTE | 2017-08-26 00:43 | CP.PCM.CON ---
History of Present Illness - History of Present Illness History of Present Illness: 26 y/o male with Crohn's Disease, Diabetes (Type 1), Bipolar Disorder, Schizophrenia presents to ER with elevated glucose.States that he ran out of his humalog last month and has only been taking his Lantus.Also c/o watery diarrhea x 2 days and has not been taking medications for Crohns as he has not seen a doctor.C/o abdominal pain and cramps but denies nausea or vomiting.No fever,cough,dysuria In ER his glucose was 1188 Review of Systems - Constitutional Constitutional: Anorexia, Fatigue, Malaise, Weakness. absent: Chills, Fever, Headache - EENT Ears: absent: Dizziness Nose/Mouth/Throat: Dry Mouth. absent: Sore Throat - Cardiovascular Cardiovascular: absent: Chest Pain, Edema, Rapid Heart Rate - Respiratory Respiratory: absent: Cough, Dyspnea - Gastrointestinal Gastrointestinal: Abdominal Pain, Change in Bowel Habits, Cramping, Diarrhea, Loose Stools. absent: Nausea, Vomiting - Genitourinary Genitourinary: Urinary Frequency. absent: Dysuria - Musculoskeletal Musculoskeletal: Back Pain - Integumentary Integumentary: absent: Rash, Swelling - Neurological Neurological: absent: Confusion, Dizziness - Endocrine Endocrine: Polydipsia, Polyuria - Hematologic/Lymphatic Hematologic: absent: Easy Bleeding Past Patient History - Infectious Disease Hx of Infectious Diseases: None - Past Medical History & Family History Past Medical History?: Yes - Past Social History Smoking Status: Former Smoker Occupation: unemployed Drugs: Cannabis Home Situation {Lives}: Alone - CARDIAC Hx Cardiac Disorders: No - PULMONARY Hx Respiratory Disorders: No - NEUROLOGICAL Hx Neurological Disorder: Yes Other/Comment: Neuropathy - HEENT Hx HEENT Problems: Yes 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) - RENAL Hx Chronic Kidney Disease: No - ENDOCRINE/METABOLIC Hx Endocrine Disorders: Yes Hx Diabetes Mellitus Type 1: Yes (insulin dependent) - HEMATOLOGICAL/ONCOLOGICAL Hx Blood Disorders: No Hx Human Immunodeficiency Virus (HIV): No - INTEGUMENTARY Hx Dermatological Problems: No - MUSCULOSKELETAL/RHEUMATOLOGICAL Hx Musculoskeletal Disorders: No Hx Falls: No - GASTROINTESTINAL Hx Crohn's Disease: Yes - GENITOURINARY/GYNECOLOGICAL Hx Genitourinary Disorders: No - PSYCHIATRIC Hx Bipolar Disorder: Yes Hx Depression: Yes Hx Schizophrenia: Yes Hx Substance Use: Yes (Marijuana) - SURGICAL HISTORY Hx Surgeries: Yes Other/Comment: wired Jaw - ANESTHESIA Hx Anesthesia: Yes Hx Anesthesia Reactions: No Hx Malignant Hyperthermia: No Meds Allergies/Adverse Reactions: Allergies Allergy/AdvReac Type Severity Reaction Status Date / Time No Known Allergies Allergy Verified 08/13/17 18:53 - Medications Medications: Current Medications Insulin Human Regular 100 unit (/ Sodium Chloride) 100 mls @ 8 mls/hr IV .[id number] JOHANA PRN Reason: Protocol Physical Exam - Constitutional Appears: No Acute Distress, Unkempt, Chronically Ill - Head Exam Head Exam: ATRAUMATIC, NORMAL INSPECTION, NORMOCEPHALIC - Eye Exam Eye Exam: EOMI, Normal appearance, PERRL - ENT Exam ENT Exam: Mucous Membranes Dry - Neck Exam Neck exam: Positive for: Full Rom, Normal Inspection - Respiratory Exam Respiratory Exam: Clear to Auscultation Bilateral, NORMAL BREATHING PATTERN. absent: Rhonchi, Wheezes - Cardiovascular Exam Cardiovascular Exam: REGULAR RHYTHM. absent: JVD, Systolic Murmur - GI/Abdominal Exam GI & Abdominal Exam: Normal Bowel Sounds, Soft, Tenderness. absent: Guarding, Rigid Additional comments: tender in lower abdomen,no rebound tenderness or guarding - Back Exam Back exam: NORMAL INSPECTION - Neurological Exam Neurological exam: Alert, Oriented x3 - Psychiatric Exam Psychiatric exam: Normal Mood - Skin Skin Exam: Normal Color, Warm Results - Vital Signs Recent Vital Signs: Last Vital Signs Temp 98 F 08/25/17 22:29 Pulse 80 08/25/17 22:29 Resp 20 08/25/17 22:29 BP 106/66 08/25/17 22:29 Pulse Ox 95 08/26/17 00:29 - Labs Result Diagrams: 08/25/17 22:57 08/25/17 22:57 Labs: Laboratory Results - last 24 hr 08/25/17 08/25/17 08/25/17 22:39 22:57 22:57 WBC 4.7 L RBC 4.49 Hgb 13.5 Hct 42.8 MCV 95.4 H D MCH 30.1 MCHC 31.5 L RDW 13.8 Plt Count 195 MPV 10.4 Neut % (Auto) 59.2 Lymph % (Auto) 28.3 [place] % (Auto) 10.3 H Eos % (Auto) 1.5 Baso % (Auto) 0.7 Neut # 2.8 Lymph # 1.3 [place] # 0.5 Eos # 0.1 Baso # 0.0 PT 10.5 INR 0.9 APTT 31 pO2 VBG pH VBG pCO2 VBG HCO3 VBG Total CO2 VBG O2 Sat (Calc) VBG Base Excess VBG Potassium Glucose Lactate Crit Value Called To Crit Value Called By Crit Value Read Back Blood Gas Notified Time Sodium Potassium Chloride Carbon Dioxide Anion Gap BUN Creatinine Est GFR ( Amer) Est GFR (Non-Af Amer) POC Glucose (mg/dL) > 500 H* Random Glucose Calcium Total Bilirubin AST ALT Alkaline Phosphatase Total Protein Albumin Globulin Albumin/Globulin Ratio Lipase Venous Blood Potassium Urine Color Urine Clarity Urine pH Ur Specific Bruno Urine Protein Urine Glucose (UA) Urine Ketones Urine Blood Urine Nitrate Urine Bilirubin Urine Urobilinogen Ur Leukocyte Esterase Urine RBC (Auto) Urine Opiates Screen Urine Methadone Screen Ur Barbiturates Screen Ur Phencyclidine Scrn Ur Amphetamines Screen U Benzodiazepines Scrn U Oth Cocaine Metabols U Cannabinoids Screen Serum Ketones 08/25/17 08/25/17 08/25/17 22:57 23:02 23:24 WBC RBC Hgb Hct MCV MCH MCHC RDW Plt Count MPV Neut % (Auto) Lymph % (Auto) [place] % (Auto) Eos % (Auto) Baso % (Auto) Neut # Lymph # [place] # Eos # Baso # PT INR APTT pO2 36 VBG pH 7.23 L VBG pCO2 36 L VBG HCO3 14.8 VBG Total CO2 16.2 L VBG O2 Sat (Calc) 82.4 H VBG Base Excess -11.6 L VBG Potassium 3.4 L Glucose > 750 H* D Lactate 1.7 Crit Value Called To Rogelio vázquez Crit Value Called By Julienne Crit Value Read Back Y Blood Gas Notified Time 2311 Sodium 116 L* 136.0 Potassium 5.3 H Chloride 85 L 103.0 Carbon Dioxide 20 L Anion Gap 16 BUN 16 Creatinine 0.8 Est GFR ( Amer) > 60 Est GFR (Non-Af Amer) > 60 POC Glucose (mg/dL) Random Glucose 1188 H* Calcium 8.4 L Total Bilirubin 0.9 AST 170 H D ALT 101 H D Alkaline Phosphatase 324 H D Total Protein 6.7 Albumin 4.0 Globulin 2.7 Albumin/Globulin Ratio 1.5 Lipase 396 H Venous Blood Potassium 3.4 L Urine Color Colorless Urine Clarity Clear Urine pH 6.0 Ur Specific Bruno 1.024 Urine Protein Negative Urine Glucose (UA) 3+ H Urine Ketones Trace Urine Blood Negative Urine Nitrate Negative Urine Bilirubin Negative Urine Urobilinogen Normal Ur Leukocyte Esterase Neg Urine RBC (Auto) < 1 Urine Opiates Screen Urine Methadone Screen Ur Barbiturates Screen Ur Phencyclidine Scrn Ur Amphetamines Screen U Benzodiazepines Scrn U Oth Cocaine Metabols U Cannabinoids Screen Serum Ketones Negative 08/25/17 23:24 WBC RBC Hgb Hct MCV MCH MCHC RDW Plt Count MPV Neut % (Auto) Lymph % (Auto) [place] % (Auto) Eos % (Auto) Baso % (Auto) Neut # Lymph # [place] # Eos # Baso # PT INR APTT pO2 VBG pH VBG pCO2 VBG HCO3 VBG Total CO2 VBG O2 Sat (Calc) VBG Base Excess VBG Potassium Glucose Lactate Crit Value Called To Crit Value Called By Crit Value Read Back Blood Gas Notified Time Sodium Potassium Chloride Carbon Dioxide Anion Gap BUN Creatinine Est GFR ( Amer) Est GFR (Non-Af Amer) POC Glucose (mg/dL) Random Glucose Calcium Total Bilirubin AST ALT Alkaline Phosphatase Total Protein Albumin Globulin Albumin/Globulin Ratio Lipase Venous Blood Potassium Urine Color Urine Clarity Urine pH Ur Specific Bruno Urine Protein Urine Glucose (UA) Urine Ketones Urine Blood Urine Nitrate Urine Bilirubin Urine Urobilinogen Ur Leukocyte Esterase Urine RBC (Auto) Urine Opiates Screen Negative Urine Methadone Screen Negative Ur Barbiturates Screen Negative Ur Phencyclidine Scrn Negative Ur Amphetamines Screen Negative U Benzodiazepines Scrn Negative U Oth Cocaine Metabols Negative U Cannabinoids Screen Positive H Serum Ketones - EKG Data EKG Interpreted by: Myself EKG shows normal: Sinus rhythm (chest xray pending) Assessment & Plan - Assessment and Plan (Free Text) Assessment: 1.Hyperglycemic crisis in DM IV fluids, insulin 2.Hyponatremia related to hyperglycemia f/u Na 3.Diarrhea- symptoms x 2 days,Gastroenteritis vs exacerbation of Crohns f/u clinically not on meds for crohns disease 4.Elevated LFT/Lipase IV fluids,rpt labs 5. Bipolar disorder/schizophernia patient unsure what meds he is taking and doesnot take daily meds
[2017-08-26] MEDS ORDERED: Sodium Chloride 0.9% 1,000 ML IV ONE (01:09)
[2017-08-26] MEDS ORDERED: Sodium Chloride 0.9% 1,000 ML IV SCH (01:15)
--- NOTE | 2017-08-26 04:33 | RAD ---
HISTORY: icu evaluation COMPARISON: Chest x-ray performed 06/29/16 TECHNIQUE: Chest, one view. FINDINGS: LUNGS: No focal consolidation. Please note that chest x-ray has limited sensitivity for the detection of pulmonary masses. PLEURA: No significant pleural effusion identified. No definite pneumothorax . CARDIOVASCULAR: The cardiomediastinal silhouette appears within normal limits of size. OSSEOUS STRUCTURES: No acute osseous abnormality identified. VISUALIZED UPPER ABDOMEN: Unremarkable. OTHER FINDINGS: None. IMPRESSION: No focal consolidation, significant pleural effusion, or definite pneumothorax identified.
[2017-08-26 06:15] LABS: VENOUS BLOOD GAS BASE EXCESS -5.1 mmol/L (0.0-2.0); VENOUS BLOOD GAS PCO2 48 mmHg (40-60); VENOUS BLOOD GAS PO2 45 mm/Hg (30-55); VENOUS BLOOD PH 7.27 (7.32-7.43)
[2017-08-26] MEDS ORDERED: Dextrose 5%/0.9% NS 1,000 ML IV SCH (06:30)
[2017-08-26 06:41] LABS: BASO # 0.1 K/uL (0.0-0.2); EOS # 0.1 K/uL (0.0-0.7); EOS % 1.7 % (0.0-4.0); HEMOGLOBIN 12.1 g/dL (12.0-18.0); LYMPH # 2.5 K/uL (1.0-4.3); LYMPH % 39.5 % (20.0-40.0); MEAN CELL VOLUME 86.4 fL (80.0-94.0); MEAN CORPUSCULAR HEMOGLOBIN 29.2 pg (27.0-31.0); MEAN CORPUSCULAR HGB CONC 33.8 g/dL (33.0-37.0); MEAN PLATELET VOLUME 9.8 fL (7.2-11.7); MONO # 0.9 K/uL (0.0-0.8); MONO % 13.7 % (0.0-10.0); NEUT # 2.8 K/uL (1.8-7.0); NEUT % 44.1 % (50.0-75.0); RBC 4.14 Mil/uL (4.40-5.90); RED CELL DISTRIBUTION WIDTH 13.1 % (11.5-14.5); WHITE BLOOD COUNT 6.3 K/uL (4.8-10.8)
[2017-08-26 06:56] LABS: ALB/GLOB RATIO 1.1 (1.0-2.1); ALBUMIN 2.8 g/dL (3.5-5.0); ALT/SGPT 94 U/L (21-72); AST/SGOT 98 U/L (17-59); BLOOD UREA NITROGEN 9 mg/dL (9-20); CALCIUM 7.2 mg/dl (8.6-10.4); GFR AFRICAN-AMERICAN > 60; GFR NON-AFRICAN AMERICAN > 60; LIPASE 169 U/L (23-300); MAGNESIUM 1.8 mg/dL (1.6-2.3)
[2017-08-26] MEDS: (Novolog) Insulin Aspart, Recombinant 100 u/ml 10 ml vial SC SCH ×3 (08:25→16:30)
[2017-08-26] MEDS: Enoxaparin 30 mg Syringe SC SCH (09:09)
[2017-08-26] MEDS: Sodium Chloride 0.9% 1,000 ML IV SCH ×2 (09:15→19:00)
[2017-08-26] MEDS ORDERED: (Lantus) Insulin Glargine, Recombinant SC SCH ×2 (10:00→22:00)
--- NOTE | 2017-08-26 10:02 | CP.CCUPN ---
CCU Subjective - Physician Review Events Since Last Encounter (Free Text): 08/26/17 10:02 26 y/o male with Crohn's Disease, Diabetes (Type 1), Bipolar Disorder, Schizophrenia presents to ER with elevated glucose.States that he ran out of his humalog last month and has only been taking his Lantus.Also c/o watery diarrhea x 2 days and has not been taking medications for Crohns as he has not seen a doctor.C/o abdominal pain and cramps but denies nausea or vomiting.No fever,cough,dysuria In ER his glucose was 1188 Patient is currently awake and responding. He has no chest pain. He is eating breakfast. He is not on any insulin drip now. IV fluid to be continued. He has insulin schedule was given. Diet to be monitored. Fingerstick monitoring. Patient can be transferred to medical floor CCU Objective - Vital Signs / Intake & Output Vital Signs (Last 4 hours): Vital Signs Temp Pulse Resp BP 08/26/17 09:15 61 14 114/83 08/26/17 09:00 63 14 08/26/17 08:00 63 14 08/26/17 07:30 97.6 F 08/26/17 07:00 64 12 Intake and Output (Last 8hrs): Intake & Output 08/25/17 08/26/17 08/26/17 22:59 06:59 14:59 Intake Total 2266 1030 Output Total 250 300 Balance 2015 730 Weight 98 lb 96 lb Intake: Intake, IV Amount 2266 550 Right Forearm 2250 550 Rt FA Y-site 16 Oral 480 Output: Urine 250 300 Urine, Voided 250 300 Other: # Voids Urine, Voided 0 # Bowel Movements 0 0 - Medications Active Medications: Active Medications Generic Name Dose Route Start Last Admin Trade Name Freq PRN Reason Stop Dose Admin Enoxaparin Sodium 30 mg 08/26/17 10:00 08/26/17 09:09 Lovenox SC 30 mg DAILY JOHANA Administration Famotidine 20 mg 08/26/17 10:00 08/26/17 09:09 Pepcid PO 20 mg BID JOHANA Administration Sodium Chloride 1,000 mls @ 100 mls/hr 08/26/17 09:15 Sodium Chloride 0.9% IV .Q10H JOHANA Insulin Aspart 10 unit 08/26/17 07:30 08/26/17 08:25 Novolog SC 10 unit AC JOHANA Administration Insulin Glargine 20 unit 08/26/17 22:00 Lantus SC HS [facility] - Patient Studies Lab Studies: Lab Studies 08/26/17 08/26/17 08/26/17 Range/Units 09:05 07:59 06:29 WBC (4.8-10.8) K/uL RBC (4.40-5.90) Mil/uL Hgb (12.0-18.0) g/dL Hct (35.0-51.0) % MCV (80.0-94.0) fL MCH (27.0-31.0) pg MCHC (33.0-37.0) g/dL RDW (11.5-14.5) % Plt Count (130-400) K/uL MPV (7.2-11.7) fL Neut % (Auto) (50.0-75.0) % Lymph % (Auto) (20.0-40.0) % Swisher % (Auto) (0.0-10.0) % Eos % (Auto) (0.0-4.0) % Baso % (Auto) (0.0-2.0) % Neut # (1.8-7.0) K/uL Lymph # (1.0-4.3) K/uL Swisher # (0.0-0.8) K/uL Eos # (0.0-0.7) K/uL Baso # (0.0-0.2) K/uL PT (9.7-12.2) SECONDS INR APTT (21-34) SECONDS Puncture Site pO2 (30-55) mm/Hg [place] Test VBG pH (7.32-7.43) VBG pCO2 (40-60) mmHg VBG HCO3 mmol/L VBG Total CO2 (22-28) mmol/L VBG O2 Sat (Calc) (40-65) % VBG Base Excess (0.0-2.0) mmol/L VBG Potassium (3.6-5.2) mmol/L Glucose (75-110) mg/dl Lactate (0.7-2.1) mmol/L Crit Value Called To Crit Value Called By Crit Value Read Back Blood Gas Notified Time Sodium 133 (132-148) mmol/L Potassium 3.6 (3.6-5.2) mmol/L Chloride 106 (98-107) mmol/L Carbon Dioxide 22 (22-30) mmol/L Anion Gap 8 L (10-20) BUN 9 (9-20) mg/dL Creatinine 0.5 L (0.8-1.5) mg/dL Est GFR ( Amer) > 60 Est GFR (Non-Af Amer) > 60 POC Glucose (mg/dL) 275 H 217 H (65-110) mg/dL Random Glucose 97 (75-110) mg/dL Calcium 7.2 L (8.6-10.4) mg/dl Phosphorus 3.2 (2.5-4.5) mg/dL Magnesium 1.8 (1.6-2.3) mg/dL Total Bilirubin 0.4 (0.2-1.3) mg/dL AST 98 H D (17-59) U/L ALT 94 H (21-72) U/L Alkaline Phosphatase 127 H D (38-126) U/L Total Protein 5.3 L (6.3-8.3) g/dL Albumin 2.8 L D (3.5-5.0) g/dL Globulin 2.5 (2.2-3.9) gm/dL Albumin/Globulin Ratio 1.1 (1.0-2.1) Lipase 169 (23-300) U/L Venous Blood Potassium (3.6-5.2) mmol/L Urine Color (YELLOW) Urine Clarity (Clear) Urine pH (5.0-8.0) Ur Specific [place] (1.003-1.030) Urine Protein (NEGATIVE) mg/dL Urine Glucose (UA) (Normal) mg/dL Urine Ketones (NEGATIVE) mg/dL Urine Blood (NEGATIVE) Urine Nitrate (NEGATIVE) Urine Bilirubin (NEGATIVE) Urine Urobilinogen (0.2-1.0) mg/dL Ur Leukocyte Esterase (Negative) Shelly/uL Urine RBC (Auto) (0-3) /hpf Urine Opiates Screen (NEGATIVE) Urine Methadone Screen (NEGATIVE) Ur Barbiturates Screen (NEGATIVE) Ur Phencyclidine Scrn (NEGATIVE) Ur Amphetamines Screen (NEGATIVE) U Benzodiazepines Scrn (NEGATIVE) U Oth Cocaine Metabols (NEGATIVE) U Cannabinoids Screen (NEGATIVE) Serum Ketones Negative (NEGATIVE) 01/13/18 01/13/18 01/13/18 Range/Units 06:29 06:15 05:46 WBC 6.3 (4.8-10.8) K/uL RBC 4.14 L (4.40-5.90) Mil/uL Hgb 12.1 (12.0-18.0) g/dL Hct 35.8 (35.0-51.0) % MCV 86.4 D (80.0-94.0) fL MCH 29.2 (27.0-31.0) pg MCHC 33.8 (33.0-37.0) g/dL RDW 13.1 (11.5-14.5) % Plt Count 196 (130-400) K/uL MPV 9.8 (7.2-11.7) fL Neut % (Auto) 44.1 L (50.0-75.0) % Lymph % (Auto) 39.5 (20.0-40.0) % Swisher % (Auto) 13.7 H (0.0-10.0) % Eos % (Auto) 1.7 (0.0-4.0) % Baso % (Auto) 1.0 (0.0-2.0) % Neut # 2.8 (1.8-7.0) K/uL Lymph # 2.5 (1.0-4.3) K/uL Swisher # 0.9 H (0.0-0.8) K/uL Eos # 0.1 (0.0-0.7) K/uL Baso # 0.1 (0.0-0.2) K/uL PT (9.7-12.2) SECONDS INR APTT (21-34) SECONDS Puncture Site Na pO2 45 (30-55) mm/Hg [place] Test Na VBG pH 7.27 L (7.32-7.43) VBG pCO2 48 (40-60) mmHg VBG HCO3 20.3 mmol/L VBG Total CO2 (22-28) mmol/L VBG O2 Sat (Calc) 85.2 H (40-65) % VBG Base Excess -5.1 L (0.0-2.0) mmol/L VBG Potassium (3.6-5.2) mmol/L Glucose (75-110) mg/dl Lactate (0.7-2.1) mmol/L Crit Value Called To Crit Value Called By Crit Value Read Back Blood Gas Notified Time Sodium (132-148) mmol/L Potassium (3.6-5.2) mmol/L Chloride (98-107) mmol/L Carbon Dioxide (22-30) mmol/L Anion Gap (10-20) BUN (9-20) mg/dL Creatinine (0.8-1.5) mg/dL Est GFR ( Amer) Est GFR (Non-Af Amer) POC Glucose (mg/dL) 102 (65-110) mg/dL Random Glucose (75-110) mg/dL Calcium (8.6-10.4) mg/dl Phosphorus (2.5-4.5) mg/dL Magnesium (1.6-2.3) mg/dL Total Bilirubin (0.2-1.3) mg/dL AST (17-59) U/L ALT (21-72) U/L Alkaline Phosphatase (38-126) U/L Total Protein (6.3-8.3) g/dL Albumin (3.5-5.0) g/dL Globulin (2.2-3.9) gm/dL Albumin/Globulin Ratio (1.0-2.1) Lipase (23-300) U/L Venous Blood Potassium (3.6-5.2) mmol/L Urine Color (YELLOW) Urine Clarity (Clear) Urine pH (5.0-8.0) Ur Specific [place] (1.003-1.030) Urine Protein (NEGATIVE) mg/dL Urine Glucose (UA) (Normal) mg/dL Urine Ketones (NEGATIVE) mg/dL Urine Blood (NEGATIVE) Urine Nitrate (NEGATIVE) Urine Bilirubin (NEGATIVE) Urine Urobilinogen (0.2-1.0) mg/dL Ur Leukocyte Esterase (Negative) Shelly/uL Urine RBC (Auto) (0-3) /hpf Urine Opiates Screen (NEGATIVE) Urine Methadone Screen (NEGATIVE) Ur Barbiturates Screen (NEGATIVE) Ur Phencyclidine Scrn (NEGATIVE) Ur Amphetamines Screen (NEGATIVE) U Benzodiazepines Scrn (NEGATIVE) U Oth Cocaine Metabols (NEGATIVE) U Cannabinoids Screen (NEGATIVE) Serum Ketones (NEGATIVE) 08/26/17 08/26/1718 Range/Units 05:24 03:57 03:01 WBC (4.8-10.8) K/uL RBC (4.40-5.90) Mil/uL Hgb (12.0-18.0) g/dL Hct (35.0-51.0) % MCV (80.0-94.0) fL MCH (27.0-31.0) pg MCHC (33.0-37.0) g/dL RDW (11.5-14.5) % Plt Count (130-400) K/uL MPV (7.2-11.7) fL Neut % (Auto) (50.0-75.0) % Lymph % (Auto) (20.0-40.0) % Swisher % (Auto) (0.0-10.0) % Eos % (Auto) (0.0-4.0) % Baso % (Auto) (0.0-2.0) % Neut # (1.8-7.0) K/uL Lymph # (1.0-4.3) K/uL [place]isher # (0.0-0.8) K/uL Eos # (0.0-0.7) K/uL Baso # (0.0-0.2) K/uL PT (9.7-12.2) SECONDS INR APTT (21-34) SECONDS Puncture Site pO2 (30-55) mm/Hg [place] Test VBG pH (7.32-7.43) VBG pCO2 (40-60) mmHg VBG HCO3 mmol/L VBG Total CO2 (22-28) mmol/L VBG O2 Sat (Calc) (40-65) % VBG Base Excess (0.0-2.0) mmol/L VBG Potassium (3.6-5.2) mmol/L Glucose (75-110) mg/dl Lactate (0.7-2.1) mmol/L Crit Value Called To Crit Value Called By Crit Value Read Back Blood Gas Notified Time Sodium (132-148) mmol/L Potassium (3.6-5.2) mmol/L Chloride (98-107) mmol/L Carbon Dioxide (22-30) mmol/L Anion Gap (10-20) BUN (9-20) mg/dL Creatinine (0.8-1.5) mg/dL Est GFR ( Amer) Est GFR (Non-Af Amer) POC Glucose (mg/dL) 123 H 229 H 324 H (65-110) mg/dL Random Glucose (75-110) mg/dL Calcium (8.6-10.4) mg/dl Phosphorus (2.5-4.5) mg/dL Magnesium (1.6-2.3) mg/dL Total Bilirubin (0.2-1.3) mg/dL AST (17-59) U/L ALT (21-72) U/L Alkaline Phosphatase (38-126) U/L Total Protein (6.3-8.3) g/dL Albumin (3.5-5.0) g/dL Globulin (2.2-3.9) gm/dL Albumin/Globulin Ratio (1.0-2.1) Lipase (23-300) U/L Venous Blood Potassium (3.6-5.2) mmol/L Urine Color (YELLOW) Urine Clarity (Clear) Urine pH (5.0-8.0) Ur Specific [place] (1.003-1.030) Urine Protein (NEGATIVE) mg/dL Urine Glucose (UA) (Normal) mg/dL Urine Ketones (NEGATIVE) mg/dL Urine Blood (NEGATIVE) Urine Nitrate (NEGATIVE) Urine Bilirubin (NEGATIVE) Urine Urobilinogen (0.2-1.0) mg/dL Ur Leukocyte Esterase (Negative) Shelly/uL Urine RBC (Auto) (0-3) /hpf Urine Opiates Screen (NEGATIVE) Urine Methadone Screen (NEGATIVE) Ur Barbiturates Screen (NEGATIVE) Ur Phencyclidine Scrn (NEGATIVE) Ur Amphetamines Screen (NEGATIVE) U Benzodiazepines Scrn (NEGATIVE) U Oth Cocaine Metabols (NEGATIVE) U Cannabinoids Screen (NEGATIVE) Serum Ketones (NEGATIVE) 08/26/17 08/25/17 08/25/17 Range/Units 02:04 23:24 23:24 WBC (4.8-10.8) K/uL RBC (4.40-5.90) Mil/uL Hgb (12.0-18.0) g/dL Hct (35.0-51.0) % MCV (80.0-94.0) fL MCH (27.0-31.0) pg MCHC (33.0-37.0) g/dL RDW (11.5-14.5) % Plt Count (130-400) K/uL MPV (7.2-11.7) fL Neut % (Auto) (50.0-75.0) % Lymph % (Auto) (20.0-40.0) % [place] % (Auto) (0.0-10.0) % Eos % (Auto) (0.0-4.0) % Baso % (Auto) (0.0-2.0) % Neut # (1.8-7.0) K/uL Lymph # (1.0-4.3) K/uL Swisher # (0.0-0.8) K/uL Eos # (0.0-0.7) K/uL Baso # (0.0-0.2) K/uL PT (9.7-12.2) SECONDS INR APTT (21-34) SECONDS Puncture Site pO2 (30-55) mm/Hg [place] Test VBG pH (7.32-7.43) VBG pCO2 (40-60) mmHg VBG HCO3 mmol/L VBG Total CO2 (22-28) mmol/L VBG O2 Sat (Calc) (40-65) % VBG Base Excess (0.0-2.0) mmol/L VBG Potassium (3.6-5.2) mmol/L Glucose (75-110) mg/dl Lactate (0.7-2.1) mmol/L Crit Value Called To Crit Value Called By Crit Value Read Back Blood Gas Notified Time Sodium (132-148) mmol/L Potassium (3.6-5.2) mmol/L Chloride (98-107) mmol/L Carbon Dioxide (22-30) mmol/L Anion Gap (10-20) BUN (9-20) mg/dL Creatinine (0.8-1.5) mg/dL Est GFR ( Amer) Est GFR (Non-Af Amer) POC Glucose (mg/dL) 469 H* (65-110) mg/dL Random Glucose (75-110) mg/dL Calcium (8.6-10.4) mg/dl Phosphorus (2.5-4.5) mg/dL Magnesium (1.6-2.3) mg/dL Total Bilirubin (0.2-1.3) mg/dL AST (17-59) U/L ALT (21-72) U/L Alkaline Phosphatase (38-126) U/L Total Protein (6.3-8.3) g/dL Albumin (3.5-5.0) g/dL Globulin (2.2-3.9) gm/dL Albumin/Globulin Ratio (1.0-2.1) Lipase (23-300) U/L Venous Blood Potassium (3.6-5.2) mmol/L Urine Color Colorless (YELLOW) Urine Clarity Clear (Clear) Urine pH 6.0 (5.0-8.0) Ur Specific [place] 1.024 (1.003-1.030) Urine Protein Negative (NEGATIVE) mg/dL Urine Glucose (UA) 3+ H (Normal) mg/dL Urine Ketones Trace (NEGATIVE) mg/dL Urine Blood Negative (NEGATIVE) Urine Nitrate Negative (NEGATIVE) Urine Bilirubin Negative (NEGATIVE) Urine Urobilinogen Normal (0.2-1.0) mg/dL Ur Leukocyte Esterase Neg (Negative) Shelly/uL Urine RBC (Auto) < 1 (0-3) /hpf Urine Opiates Screen Negative (NEGATIVE) Urine Methadone Screen Negative (NEGATIVE) Ur Barbiturates Screen Negative (NEGATIVE) Ur Phencyclidine Scrn Negative (NEGATIVE) Ur Amphetamines Screen Negative (NEGATIVE) U Benzodiazepines Scrn Negative (NEGATIVE) U Oth Cocaine Metabols Negative (NEGATIVE) U Cannabinoids Screen Positive H (NEGATIVE) Serum Ketones (NEGATIVE) 08/25/17 08/25/17 08/25/17 Range/Units 23:02 22:57 22:57 WBC (4.8-10.8) K/uL RBC (4.40-5.90) Mil/uL Hgb (12.0-18.0) g/dL Hct (35.0-51.0) % MCV (80.0-94.0) fL MCH (27.0-31.0) pg MCHC (33.0-37.0) g/dL RDW (11.5-14.5) % Plt Count (130-400) K/uL MPV (7.2-11.7) fL Neut % (Auto) (50.0-75.0) % Lymph % (Auto) (20.0-40.0) % [place] % (Auto) (0.0-10.0) % Eos % (Auto) (0.0-4.0) % Baso % (Auto) (0.0-2.0) % Neut # (1.8-7.0) K/uL Lymph # (1.0-4.3) K/uL [place] # (0.0-0.8) K/uL Eos # (0.0-0.7) K/uL Baso # (0.0-0.2) K/uL PT 10.5 (9.7-12.2) SECONDS INR 0.9 APTT 31 (21-34) SECONDS Puncture Site pO2 36 (30-55) mm/Hg [place] Test VBG pH 7.23 L (7.32-7.43) VBG pCO2 36 L (40-60) mmHg VBG HCO3 14.8 mmol/L VBG Total CO2 16.2 L (22-28) mmol/L VBG O2 Sat (Calc) 82.4 H (40-65) % VBG Base Excess -11.6 L (0.0-2.0) mmol/L VBG Potassium 3.4 L (3.6-5.2) mmol/L Glucose > 750 H* D (75-110) mg/dl Lactate 1.7 (0.7-2.1) mmol/L Crit Value Called To Rogelio vázquez Crit Value Called By Julienne Crit Value Read Back Y Blood Gas Notified Time 2311 Sodium 136.0 116 L* (132-148) mmol/L Potassium 5.3 H (3.6-5.2) mmol/L Chloride 103.0 85 L (98-107) mmol/L Carbon Dioxide 20 L (22-30) mmol/L Anion Gap 16 (10-20) BUN 16 (9-20) mg/dL Creatinine 0.8 (0.8-1.5) mg/dL Est GFR ( Amer) > 60 Est GFR (Non-Af Amer) > 60 POC Glucose (mg/dL) (65-110) mg/dL Random Glucose 1188 H* (75-110) mg/dL Calcium 8.4 L (8.6-10.4) mg/dl Phosphorus (2.5-4.5) mg/dL Magnesium (1.6-2.3) mg/dL Total Bilirubin 0.9 (0.2-1.3) mg/dL AST 170 H D (17-59) U/L ALT 101 H D (21-72) U/L Alkaline Phosphatase 324 H D (38-126) U/L Total Protein 6.7 (6.3-8.3) g/dL Albumin 4.0 (3.5-5.0) g/dL Globulin 2.7 (2.2-3.9) gm/dL Albumin/Globulin Ratio 1.5 (1.0-2.1) Lipase 396 H (23-300) U/L Venous Blood Potassium 3.4 L (3.6-5.2) mmol/L Urine Color (YELLOW) Urine Clarity (Clear) Urine pH (5.0-8.0) Ur Specific [place] (1.003-1.030) Urine Protein (NEGATIVE) mg/dL Urine Glucose (UA) (Normal) mg/dL Urine Ketones (NEGATIVE) mg/dL Urine Blood (NEGATIVE) Urine Nitrate (NEGATIVE) Urine Bilirubin (NEGATIVE) Urine Urobilinogen (0.2-1.0) mg/dL Ur Leukocyte Esterase (Negative) Shelly/uL Urine RBC (Auto) (0-3) /hpf Urine Opiates Screen (NEGATIVE) Urine Methadone Screen (NEGATIVE) Ur Barbiturates Screen (NEGATIVE) Ur Phencyclidine Scrn (NEGATIVE) Ur Amphetamines Screen (NEGATIVE) U Benzodiazepines Scrn (NEGATIVE) U Oth Cocaine Metabols (NEGATIVE) U Cannabinoids Screen (NEGATIVE) Serum Ketones Negative (NEGATIVE) 08/25/17 08/25/17 Range/Units 22:57 22:39 WBC 4.7 L (4.8-10.8) K/uL RBC 4.49 (4.40-5.90) Mil/uL Hgb 13.5 (12.0-18.0) g/dL Hct 42.8 (35.0-51.0) % MCV 95.4 H D (80.0-94.0) fL MCH 30.1 (27.0-31.0) pg MCHC 31.5 L (33.0-37.0) g/dL RDW 13.8 (11.5-14.5) % Plt Count 195 (130-400) K/uL MPV 10.4 (7.2-11.7) fL Neut % (Auto) 59.2 (50.0-75.0) % Lymph % (Auto) 28.3 (20.0-40.0) % [place] % (Auto) 10.3 H (0.0-10.0) % Eos % (Auto) 1.5 (0.0-4.0) % Baso % (Auto) 0.7 (0.0-2.0) % Neut # 2.8 (1.8-7.0) K/uL Lymph # 1.3 (1.0-4.3) K/uL [place] # 0.5 (0.0-0.8) K/uL Eos # 0.1 (0.0-0.7) K/uL Baso # 0.0 (0.0-0.2) K/uL PT (9.7-12.2) SECONDS INR APTT (21-34) SECONDS Puncture Site pO2 (30-55) mm/Hg [place] Test VBG pH (7.32-7.43) VBG pCO2 (40-60) mmHg VBG HCO3 mmol/L VBG Total CO2 (22-28) mmol/L VBG O2 Sat (Calc) (40-65) % VBG Base Excess (0.0-2.0) mmol/L VBG Potassium (3.6-5.2) mmol/L Glucose (75-110) mg/dl Lactate (0.7-2.1) mmol/L Crit Value Called To Crit Value Called By Crit Value Read Back Blood Gas Notified Time Sodium (132-148) mmol/L Potassium (3.6-5.2) mmol/L Chloride (98-107) mmol/L Carbon Dioxide (22-30) mmol/L Anion Gap (10-20) BUN (9-20) mg/dL Creatinine (0.8-1.5) mg/dL Est GFR ( Amer) Est GFR (Non-Af Amer) POC Glucose (mg/dL) > 500 H* (65-110) mg/dL Random Glucose (75-110) mg/dL Calcium (8.6-10.4) mg/dl Phosphorus (2.5-4.5) mg/dL Magnesium (1.6-2.3) mg/dL Total Bilirubin (0.2-1.3) mg/dL AST (17-59) U/L ALT (21-72) U/L Alkaline Phosphatase (38-126) U/L Total Protein (6.3-8.3) g/dL Albumin (3.5-5.0) g/dL Globulin (2.2-3.9) gm/dL Albumin/Globulin Ratio (1.0-2.1) Lipase (23-300) U/L Venous Blood Potassium (3.6-5.2) mmol/L Urine Color (YELLOW) Urine Clarity (Clear) Urine pH (5.0-8.0) Ur Specific [place] (1.003-1.030) Urine Protein (NEGATIVE) mg/dL Urine Glucose (UA) (Normal) mg/dL Urine Ketones (NEGATIVE) mg/dL Urine Blood (NEGATIVE) Urine Nitrate (NEGATIVE) Urine Bilirubin (NEGATIVE) Urine Urobilinogen (0.2-1.0) mg/dL Ur Leukocyte Esterase (Negative) Shelly/uL Urine RBC (Auto) (0-3) /hpf Urine Opiates Screen (NEGATIVE) Urine Methadone Screen (NEGATIVE) Ur Barbiturates Screen (NEGATIVE) Ur Phencyclidine Scrn (NEGATIVE) Ur Amphetamines Screen (NEGATIVE) U Benzodiazepines Scrn (NEGATIVE) U Oth Cocaine Metabols (NEGATIVE) U Cannabinoids Screen (NEGATIVE) Serum Ketones (NEGATIVE) Laboratory Results - last 24 hr 08/25/17 08/25/17 08/25/17 22:39 22:57 22:57 WBC 4.7 L RBC 4.49 Hgb 13.5 Hct 42.8 MCV 95.4 H D MCH 30.1 MCHC 31.5 L RDW 13.8 Plt Count 195 MPV 10.4 Neut % (Auto) 59.2 Lymph % (Auto) 28.3 Swisher % (Auto) 10.3 H Eos % (Auto) 1.5 Baso % (Auto) 0.7 Neut # 2.8 Lymph # 1.3 Swisher # 0.5 Eos # 0.1 Baso # 0.0 PT 10.5 INR 0.9 APTT 31 Puncture Site pO2 [place] Test VBG pH VBG pCO2 VBG HCO3 VBG Total CO2 VBG O2 Sat (Calc) VBG Base Excess VBG Potassium Glucose Lactate Crit Value Called To Crit Value Called By Crit Value Read Back Blood Gas Notified Time Sodium Potassium Chloride Carbon Dioxide Anion Gap BUN Creatinine Est GFR ( Amer) Est GFR (Non-Af Amer) POC Glucose (mg/dL) > 500 H* Random Glucose Calcium Phosphorus Magnesium Total Bilirubin AST ALT Alkaline Phosphatase Total Protein Albumin Globulin Albumin/Globulin Ratio Lipase Venous Blood Potassium Urine Color Urine Clarity Urine pH Ur Specific [place] Urine Protein Urine Glucose (UA) Urine Ketones Urine Blood Urine Nitrate Urine Bilirubin Urine Urobilinogen Ur Leukocyte Esterase Urine RBC (Auto) Urine Opiates Screen Urine Methadone Screen Ur Barbiturates Screen Ur Phencyclidine Scrn Ur Amphetamines Screen U Benzodiazepines Scrn U Oth Cocaine Metabols U Cannabinoids Screen Serum Ketones 08/25/17 08/25/17 08/25/17 22:57 23:02 23:24 WBC RBC Hgb Hct MCV MCH MCHC RDW Plt Count MPV Neut % (Auto) Lymph % (Auto) [place] % (Auto) Eos % (Auto) Baso % (Auto) Neut # Lymph # Swisher # Eos # Baso # PT INR APTT Puncture Site pO2 36 [place] Test VBG pH 7.23 L VBG pCO2 36 L VBG HCO3 14.8 VBG Total CO2 16.2 L VBG O2 Sat (Calc) 82.4 H VBG Base Excess -11.6 L VBG Potassium 3.4 L Glucose > 750 H* D Lactate 1.7 Crit Value Called To Rogelio vázquez Crit Value Called By Julienne Crit Value Read Back Y Blood Gas Notified Time 2311 Sodium 116 L* 136.0 Potassium 5.3 H Chloride 85 L 103.0 Carbon Dioxide 20 L Anion Gap 16 BUN 16 Creatinine 0.8 Est GFR ( Amer) > 60 Est GFR (Non-Af Amer) > 60 POC Glucose (mg/dL) Random Glucose 1188 H* Calcium 8.4 L Phosphorus Magnesium Total Bilirubin 0.9 AST 170 H D ALT 101 H D Alkaline Phosphatase 324 H D Total Protein 6.7 Albumin 4.0 Globulin 2.7 Albumin/Globulin Ratio 1.5 Lipase 396 H Venous Blood Potassium 3.4 L Urine Color Colorless Urine Clarity Clear Urine pH 6.0 Ur Specific [place] 1.024 Urine Protein Negative Urine Glucose (UA) 3+ H Urine Ketones Trace Urine Blood Negative Urine Nitrate Negative Urine Bilirubin Negative Urine Urobilinogen Normal Ur Leukocyte Esterase Neg Urine RBC (Auto) < 1 Urine Opiates Screen Urine Methadone Screen Ur Barbiturates Screen Ur Phencyclidine Scrn Ur Amphetamines Screen U Benzodiazepines Scrn U Oth Cocaine Metabols U Cannabinoids Screen Serum Ketones Negative 08/25/17 08/26/17 08/26/17 23:24 02:04 03:01 WBC RBC Hgb Hct MCV MCH MCHC RDW Plt Count MPV Neut % (Auto) Lymph % (Auto) [place] % (Auto) Eos % (Auto) Baso % (Auto) Neut # Lymph # [place] # Eos # Baso # PT INR APTT Puncture Site pO2 [place] Test VBG pH VBG pCO2 VBG HCO3 VBG Total CO2 VBG O2 Sat (Calc) VBG Base Excess VBG Potassium Glucose Lactate Crit Value Called To Crit Value Called By Crit Value Read Back Blood Gas Notified Time Sodium Potassium Chloride Carbon Dioxide Anion Gap BUN Creatinine Est GFR ( Amer) Est GFR (Non-Af Amer) POC Glucose (mg/dL) 469 H* 324 H Random Glucose Calcium Phosphorus Magnesium Total Bilirubin AST ALT Alkaline Phosphatase Total Protein Albumin Globulin Albumin/Globulin Ratio Lipase Venous Blood Potassium Urine Color Urine Clarity Urine pH Ur Specific [place] Urine Protein Urine Glucose (UA) Urine Ketones Urine Blood Urine Nitrate Urine Bilirubin Urine Urobilinogen Ur Leukocyte Esterase Urine RBC (Auto) Urine Opiates Screen Negative Urine Methadone Screen Negative Ur Barbiturates Screen Negative Ur Phencyclidine Scrn Negative Ur Amphetamines Screen Negative U Benzodiazepines Scrn Negative U Oth Cocaine Metabols Negative U Cannabinoids Screen Positive H Serum Ketones 08/26/17 08/26/17 08/26/17 03:57 05:24 05:46 WBC RBC Hgb Hct MCV MCH MCHC RDW Plt Count MPV Neut % (Auto) Lymph % (Auto) [place] % (Auto) Eos % (Auto) Baso % (Auto) Neut # Lymph # [place] # Eos # Baso # PT INR APTT Puncture Site Na pO2 45 [place] Test Na VBG pH 7.27 L VBG pCO2 48 VBG HCO3 20.3 VBG Total CO2 VBG O2 Sat (Calc) 85.2 H VBG Base Excess -5.1 L VBG Potassium Glucose Lactate Crit Value Called To Crit Value Called By Crit Value Read Back Blood Gas Notified Time Sodium Potassium Chloride Carbon Dioxide Anion Gap BUN Creatinine Est GFR ( Amer) Est GFR (Non-Af Amer) POC Glucose (mg/dL) 229 H 123 H Random Glucose Calcium Phosphorus Magnesium Total Bilirubin AST ALT Alkaline Phosphatase Total Protein Albumin Globulin Albumin/Globulin Ratio Lipase Venous Blood Potassium Urine Color Urine Clarity Urine pH Ur Specific [place] Urine Protein Urine Glucose (UA) Urine Ketones Urine Blood Urine Nitrate Urine Bilirubin Urine Urobilinogen Ur Leukocyte Esterase Urine RBC (Auto) Urine Opiates Screen Urine Methadone Screen Ur Barbiturates Screen Ur Phencyclidine Scrn Ur Amphetamines Screen U Benzodiazepines Scrn U Oth Cocaine Metabols U Cannabinoids Screen Serum Ketones 08/26/17 08/26/17 08/26/17 06:15 06:29 06:29 WBC 6.3 RBC 4.14 L Hgb 12.1 Hct 35.8 MCV 86.4 D MCH 29.2 MCHC 33.8 RDW 13.1 Plt Count 196 MPV 9.8 Neut % (Auto) 44.1 L Lymph % (Auto) 39.5 [place] % (Auto) 13.7 H Eos % (Auto) 1.7 Baso % (Auto) 1.0 Neut # 2.8 Lymph # 2.5 [place] # 0.9 H Eos # 0.1 Baso # 0.1 PT INR APTT Puncture Site pO2 [place] Test VBG pH VBG pCO2 VBG HCO3 VBG Total CO2 VBG O2 Sat (Calc) VBG Base Excess VBG Potassium Glucose Lactate Crit Value Called To Crit Value Called By Crit Value Read Back Blood Gas Notified Time Sodium 133 Potassium 3.6 Chloride 106 Carbon Dioxide 22 Anion Gap 8 L BUN 9 Creatinine 0.5 L Est GFR ( Amer) > 60 Est GFR (Non-Af Amer) > 60 POC Glucose (mg/dL) 102 Random Glucose 97 Calcium 7.2 L Phosphorus 3.2 Magnesium 1.8 Total Bilirubin 0.4 AST 98 H D ALT 94 H Alkaline Phosphatase 127 H D Total Protein 5.3 L Albumin 2.8 L D Globulin 2.5 Albumin/Globulin Ratio 1.1 Lipase 169 Venous Blood Potassium Urine Color Urine Clarity Urine pH Ur Specific [place] Urine Protein Urine Glucose (UA) Urine Ketones Urine Blood Urine Nitrate Urine Bilirubin Urine Urobilinogen Ur Leukocyte Esterase Urine RBC (Auto) Urine Opiates Screen Urine Methadone Screen Ur Barbiturates Screen Ur Phencyclidine Scrn Ur Amphetamines Screen U Benzodiazepines Scrn U Oth Cocaine Metabols U Cannabinoids Screen Serum Ketones Negative 08/26/17 08/26/17 07:59 09:05 WBC RBC Hgb Hct MCV MCH MCHC RDW Plt Count MPV Neut % (Auto) Lymph % (Auto) [place] % (Auto) Eos % (Auto) Baso % (Auto) Neut # Lymph # [place] # Eos # Baso # PT INR APTT Puncture Site pO2 [place] Test VBG pH VBG pCO2 VBG HCO3 VBG Total CO2 VBG O2 Sat (Calc) VBG Base Excess VBG Potassium Glucose Lactate Crit Value Called To Crit Value Called By Crit Value Read Back Blood Gas Notified Time Sodium Potassium Chloride Carbon Dioxide Anion Gap BUN Creatinine Est GFR ( Amer) Est GFR (Non-Af Amer) POC Glucose (mg/dL) 217 H 275 H Random Glucose Calcium Phosphorus Magnesium Total Bilirubin AST ALT Alkaline Phosphatase Total Protein Albumin Globulin Albumin/Globulin Ratio Lipase Venous Blood Potassium Urine Color Urine Clarity Urine pH Ur Specific [place] Urine Protein Urine Glucose (UA) Urine Ketones Urine Blood Urine Nitrate Urine Bilirubin Urine Urobilinogen Ur Leukocyte Esterase Urine RBC (Auto) Urine Opiates Screen Urine Methadone Screen Ur Barbiturates Screen Ur Phencyclidine Scrn Ur Amphetamines Screen U Benzodiazepines Scrn U Oth Cocaine Metabols U Cannabinoids Screen Serum Ketones EKG/Cardiology Studies: Cardiology / EKG Studies 08/25/17 23:58 EKG [ELECTROCARDIOGRAM] Stat Comment: Mode Of Transportation: BED Reason For Exam: cp 08/26/17 00:08 EKG [ELECTROCARDIOGRAM] Stat Comment: Mode Of Transportation: STRETCHER Reason For Exam: electrolyte abnormality Fingerstick Blood Sugar Results: 217 Critical Care Progress Note - Nutrition Nutrition: Nutrition Category Date Time Status Consistent Carbohydrate [DIET] Diets 08/26/17 Breakfast Active
[2017-08-26] MEDS ORDERED: Tramadol 25 mg PO STA (16:11)
--- NOTE | 2017-08-26 16:44 | CP.PCM.PN ---
Subjective - Date & Time of Evaluation Date of Evaluation: 08/26/17 Time of Evaluation: 16:44 Objective - Vital Signs/Intake and Output Vital Signs (last 24 hours): Temp Pulse Resp BP Pulse Ox 97.8 F 72 16 114/83 97 08/26/17 12:00 08/26/17 13:00 08/26/17 13:00 08/26/17 09:15 08/26/17 05:00 Intake and Output: 08/26/17 08/26/17 06:59 18:59 Intake Total 2266 1630 Output Total 250 300 Balance 2015 1330 - Medications Medications: Current Medications Enoxaparin Sodium (Lovenox) 30 mg SC DAILY [facility] Last Admin: 08/26/17 09:09 Dose: 30 mg Famotidine (Pepcid) 20 mg PO BID [facility] Last Admin: 08/26/17 09:09 Dose: 20 mg Sodium Chloride (Sodium Chloride 0.9%) 1,000 mls @ 100 mls/hr IV .Q10H [facility] Last Admin: 08/26/17 09:15 Dose: Not Given Insulin Aspart (Novolog) 10 unit SC AC [facility] Last Admin: 08/26/17 12:35 Dose: 10 unit Insulin Glargine (Lantus) 20 unit SC HS [facility] Ketorolac Tromethamine (Toradol) 15 mg IM Q6 PRN PRN Reason: Pain, moderate (4-7) - Labs Labs: 08/26/17 06:29 08/26/17 06:29 PT 10.5 SECONDS (9.7-12.2) 08/25/17 22:57 INR 0.9 08/25/17 22:57 APTT 31 SECONDS (21-34) 08/25/17 22:57
[2017-08-26] MEDS ORDERED: Pneumococcal 23-Valent Vaccine IM ONE ×2 (18:37→22:00)
[2017-08-26] MEDS ORDERED: Influenza Vaccine 60 mcg/0.5 mL SYR (4YR UP) IM ONE ×2 (18:37→22:00)
[2017-08-26 19:47] VITALS: RESP 15
[2017-08-26] MEDS ORDERED: (Lantus) Insulin Glargine, Recombinant SC STA (21:10)
[2017-08-27 05:51] VITALS: BP 108/75; PULSE 64; O2SAT 98
[2017-08-27] MEDS: Sodium Chloride 0.9% 1,000 ML IV SCH (06:53)
[2017-08-27] MEDS: (Novolog) Insulin Aspart, Recombinant 100 u/ml 10 ml vial SC SCH ×2 (08:36→13:07)
[2017-08-27] MEDS: Enoxaparin 30 mg Syringe SC SCH (10:05)
[2017-08-27 10:53] VITALS: TEMP 97.9
--- NOTE | 2017-08-28 07:49 | HP ---
HISTORY OF PRESENT ILLNESS: This is a 26-year-old male, admitted with chief complaint of weakness, fatigue, tiredness. Patient with elevated blood sugar. Patient has not been not able to get his Novolog insulin, only been taking the Lantus. PHYSICAL EXAMINATION: GENERAL: Patient is awake, alert. VITAL SIGNS: Temperature 98, pulse 96. HEENT: Within normal limits. NECK: Supple. CHEST: Symmetrical. HEART: Regular. ABDOMEN: Soft. EXTREMITIES: No edema. IMPRESSION: Uncontrolled diabetes. PLAN: Patient will get bedrest, supportive care, insulin Levemir. Glenis Edwards MD
--- NOTE | 2017-08-28 09:00 | CARD ---
APPROVED REPORT EKG Measurement Heart [id number] <Conclusion> Normal sinus rhythm Right atrial enlargement Nonspecific T wave abnormality Abnormal ECG
== END 2017-08-27 13:55 | disposition home or self-care (01) | DRG 295 ==
LOC: C.ER 22:12 → C.9I 08-26 00:29
PROVIDERS: ADMIT Internal Medicine Pulmonary Disease; ATTEND Internal Medicine Pulmonary Disease
DX: E10.65 Type 1 diabetes mellitus with hyperglycemia (principal); F20.9 Schizophrenia, unspecified; E10.42 Type 1 diabetes mellitus with diabetic polyneuropathy; E87.1 Hypo-osmolality and hyponatremia; F31.9 Bipolar disorder, unspecified; H54.8 Legal blindness, as defined in USA; H91.92 Unspecified hearing loss, left ear; K50.90 Crohn's disease, unspecified, without complications; Z79.4 Long term (current) use of insulin; Z87.891 Personal history of nicotine dependence

== ENCOUNTER 2017-09-06 11:44 | Emergency (ER) | payer MEDICAID ==
[2017-09-06 11:45] VITALS: BMI 13.6
--- NOTE | 2017-09-06 13:07 | C.PDOC ---
History Of Present Illness 26 year old male with PMHx of Crohn's Disease, Diabetes (Type 1), Bipolar Disorder,Schizophrenia and colon CA presents to the ED with a new onset rectal pain with dark red rectal bleeding that started today. Patient is also c/o epigastric B/L abdominal pain for several days similar to previous episodes. Patient reports he just recently got insurance so he has never had any GI or cancer medications and is currently pending treatment for them. Patient had a endoscopy done on 07/20/17 which showed esophagitis, gastritis, duodenitis. Patient denies fever, chills, nausea, vomit, diarrhea, dysuria, hematuria. RECENT ADMISSION FOR DKA. POSSIBLE DRUG SEEKING BEHAVIOR, PENDING OUTPT PAIN MGMT EVAL. Time Seen by Provider: 09/06/17 12:14 Chief Complaint (Nursing): GI Problem History Per: Patient History/Exam Limitations: no limitations Onset/Duration Of Symptoms: Hrs Current Symptoms Are (Timing): Still Present Severity: Mild Location Of Pain/Discomfort: Epigastric, Other (rectal) Radiation Of Pain To:: None Quality Of Discomfort: "Pain" Associated Symptoms: Other (rectal bleeding). denies: Fever, Nausea, Vomiting, Diarrhea, Constipation Exacerbating Factors: None Alleviating Factors: None Recent travel outside of the [place]: No Additional History Per: Patient Past Medical History Reviewed: Historical Data, Nursing Documentation, Vital Signs Vital Signs: Last Vital Signs Temp 97.7 F 09/06/17 15:47 Pulse 76 09/06/17 15:47 Resp 18 09/06/17 15:47 BP 98/62 L 09/06/17 15:47 Pulse Ox 99 09/06/17 15:47 - Medical History PMH: Bipolar Disorder, Crohn's Disease, Depression, Diabetes (Type 1), Schizophrenia Denies: HIV, Chronic Kidney Disease Surgical History: No Surg Hx - [facility] Procedures (07/21/17) (07/21/17) Family History: States: Unknown Family Hx - Social History Hx Tobacco Use: No Hx Alcohol Use: No Hx Substance Use: Yes - Immunization History Hx Tetanus Toxoid Vaccination: No Hx Influenza Vaccination: No Hx Pneumococcal Vaccination: No Review Of Systems Constitutional: Negative for: Fever, Chills Cardiovascular: Negative for: Chest Pain Respiratory: Negative for: Cough, Shortness of Breath Gastrointestinal: Positive for: Abdominal Pain, Rectal Pain, Other (rectal bleeding). Negative for: Nausea, Vomiting Genitourinary: Negative for: Dysuria, Hematuria Musculoskeletal: Negative for: Back Pain Skin: Negative for: Rash Neurological: Negative for: Weakness, Numbness Physical Exam - Physical Exam Appears: Non-toxic, Other (Moderate distress) Skin: Normal Color, Warm, Dry Head: Atraumatic, Normacephalic Eye(s): bilateral: Normal Inspection Nose: No Discharge, No Deformity Oral Mucosa: Moist Neck: Normal ROM, Supple Chest: Symmetrical Cardiovascular: Rhythm Regular, No Murmur Respiratory: Normal Breath Sounds, No Rales, No Rhonchi, No Wheezing Gastrointestinal/Abdominal: Soft, Tenderness (epigastric), No Guarding, No Rebound Rectal: No Hemorrhoids (external), Other (chronic anal fisures) Extremity: Normal ROM, No Pedal Edema, No Calf Tenderness, No Deformity, No Swelling Neurological/Psych: Oriented x3, Normal Speech, Normal Cognition Gait: Steady ED Course And Treatment - Laboratory Results Result Diagrams: 09/06/17 14:20 09/06/17 14:20 O2 Sat by Pulse Oximetry: 100 (On RA) Pulse Ox Interpretation: Normal Progress - Re-Evaluation Re-evaluation Note: 09/06/17 13:41 D/W DR GÓMEZ: NO DOCUMENTED HO CROHNS. CONCERN FOR DRUG SEEKING BEHAVIOR. AWARE OF ER FINDINGS AND AGREES W MGMT PLAN 09/06/17 16:05 APPEARS COMFORTABLE NAD NONTOXIC. VSS. NO RECUR SX. ADVISED NEED FOR OUTPT GI FU. PAIN MGMT REFERRAL - Data Reviewed Data Reviewed: Lab, Diagnostic imaging, Old records - Continuity of Care Discussed pt. case with information consultant/specialty: Gastroenterology Medical Decision Making Medical Decision Making: Impression : abdominal pain, rectal pain, rectal bleeding Disposition Counseled Patient/Family Regarding: Studies Performed, Diagnosis, Need For Followup - Disposition Referrals: Efrain Gómez MD [Staff Provider] - Curt Fonseca MD [Staff Provider] - [facility] [Outside] [facility] [Outside] Disposition: HOME/ ROUTINE Disposition Time: 16:12 Condition: IMPROVED Additional Instructions: YOU HAVE BEEN ADVISED TO SCHEDULE FOLLOW UP WITH GASTROENTEROLOGY AND PAIN MANAGEMENT. CALL THE PROVIDED OFFICE NUMBERS TO SCHEDULE. Instructions: Rectal Pain (ED) Forms: [employer] ([place]) - Clinical Impression Clinical Impression: Rectal pain - Scribe Statement The provider has reviewed the documentation as recorded by the Scribe Jelani Puentes All medical record entries made by the Scribe were at my direction and personally dictated by me. I have reviewed the chart and agree that the record accurately reflects my personal performance of the history, physical exam, medical decision making, and the department course for this patient. I have also personally directed, reviewed, and agree with the discharge instructions and disposition.
[2017-09-06] MEDS ORDERED: Lidocaine 2% Jelly (Uro-Jet) TOP ONE (13:36)
[2017-09-06] MEDS ORDERED: Lidocaine 2% Jelly (Uro-Jet) ONE (14:07)
[2017-09-06 14:27] LABS: BASO # 0.1 K/uL (0.0-0.2); EOS # 0.1 K/uL (0.0-0.7); EOS % 0.8 % (0.0-4.0); HEMOGLOBIN 13.9 g/dL (12.0-18.0); LYMPH # 1.6 K/uL (1.0-4.3); LYMPH % 20.9 % (20.0-40.0); MEAN CELL VOLUME 87.1 fL (80.0-94.0); MEAN CORPUSCULAR HEMOGLOBIN 29.6 pg (27.0-31.0); MEAN CORPUSCULAR HGB CONC 33.9 g/dL (33.0-37.0); MEAN PLATELET VOLUME 9.5 fL (7.2-11.7); MONO # 0.6 K/uL (0.0-0.8); MONO % 7.7 % (0.0-10.0); NEUT # 5.2 K/uL (1.8-7.0); NEUT % 69.6 % (50.0-75.0); RBC 4.71 Mil/uL (4.40-5.90); WHITE BLOOD COUNT 7.4 K/uL (4.8-10.8)
[2017-09-06 14:35] LABS: URINE BILIRUBIN NEGATIVE (NEGATIVE); URINE BLOOD NEGATIVE (NEGATIVE); URINE CLARITY Clear (Clear); URINE COLOR Colorless (YELLOW); URINE GLUCOSE (UA) 3+ mg/dL (Normal); URINE LEUKOCYTE ESTERASE NEG Leu/uL (Negative); URINE NITRATE NEGATIVE (NEGATIVE); URINE PROTEIN NEGATIVE (NEGATIVE); URINE UROBILINOGEN NORMAL mg/dL (0.2-1.0)
[2017-09-06 14:44] LABS: ALB/GLOB RATIO 1.5 (1.0-2.1); ALBUMIN 3.9 g/dL (3.5-5.0); ALT/SGPT 39 U/L (21-72); AST/SGOT 15 U/L (17-59); BLOOD UREA NITROGEN 10 mg/dL (9-20); CALCIUM 7.5 mg/dl (8.6-10.4); GFR AFRICAN-AMERICAN > 60; GFR NON-AFRICAN AMERICAN > 60; LIPASE 145 U/L (23-300)
[2017-09-06] MEDS ORDERED: Sodium Chloride 0.9% 1,000 ML ONE (15:03)
[2017-09-06 15:31] LABS: VENOUS BLOOD GAS BASE EXCESS -11.6 mmol/L (0.0-2.0); VENOUS BLOOD GAS PCO2 36 mmHg (40-60); VENOUS BLOOD GAS PO2 44 mm/Hg (30-55); VENOUS BLOOD PH 7.23 (7.32-7.43)
[2017-09-06 15:47] VITALS: RESP 18; TEMP 97.7
[2017-09-06 17:02] VITALS: BP 105/63; PULSE 72; O2SAT 99
== END 2017-09-06 17:05 | disposition home or self-care (01) ==
LOC: C.ER 11:44
DX: K62.89 Other specified diseases of anus and rectum (principal); K62.5 Hemorrhage of anus and rectum; R10.13 Epigastric pain

== ENCOUNTER 2017-10-19 23:42 | Inpatient (IN) | payer MEDICAID ==
[2017-10-19 23:42] VITALS: BMI 13.6
[2017-10-20] MEDS ORDERED: Sodium Chloride 0.9% 1,000 ML IV ONE ×3 (00:01→00:53)
[2017-10-20 00:24] LABS: BASO % 0.8 % (0.0-2.0); EOS % 0.8 % (0.0-4.0); HEMOGLOBIN 13.2 g/dL (12.0-18.0); LYMPH # 1.1 K/uL (1.0-4.3); LYMPH % 20.7 % (20.0-40.0); MEAN CELL VOLUME 97.4 fL (80.0-94.0); MEAN CORPUSCULAR HEMOGLOBIN 30.6 pg (27.0-31.0); MEAN CORPUSCULAR HGB CONC 31.4 g/dL (33.0-37.0); MEAN PLATELET VOLUME 10.4 fL (7.2-11.7); MONO # 0.7 K/uL (0.0-0.8); MONO % 13.9 % (0.0-10.0); NEUT # 3.4 K/uL (1.8-7.0); NEUT % 63.8 % (50.0-75.0); NRBC % 0.1 % (0.0-2.0); RBC 4.32 Mil/uL (4.40-5.90); RED CELL DISTRIBUTION WIDTH 14.9 % (11.5-14.5); WHITE BLOOD COUNT 5.4 K/uL (4.8-10.8)
[2017-10-20 00:29] LABS: VENOUS BLOOD GAS BASE EXCESS -1.4 mmol/L (0.0-2.0); VENOUS BLOOD GAS PCO2 54 mmHg (40-60); VENOUS BLOOD GAS PO2 40 mm/Hg (30-55); VENOUS BLOOD PH 7.29 (7.32-7.43)
[2017-10-20 00:30] LABS: URINE BILIRUBIN NEGATIVE (NEGATIVE); URINE BLOOD NEGATIVE (NEGATIVE); URINE CLARITY Clear (Clear); URINE COLOR Colorless (YELLOW); URINE GLUCOSE (UA) 3+ mg/dL (Normal); URINE LEUKOCYTE ESTERASE NEG Leu/uL (Negative); URINE PROTEIN NEGATIVE (NEGATIVE); URINE UROBILINOGEN NORMAL mg/dL (0.2-1.0)
[2017-10-20] MEDS ORDERED: (Novolin R) Insulin Human Regular 100 units/ml vial IV STA (00:38)
[2017-10-20 00:41] LABS: ALB/GLOB RATIO 1.3 (1.0-2.1); ALT/SGPT 89 U/L (21-72); AST/SGOT 93 U/L (17-59); BLOOD UREA NITROGEN 11 mg/dL (9-20); CALCIUM 8.9 mg/dl (8.6-10.4); GFR AFRICAN-AMERICAN > 60; GFR NON-AFRICAN AMERICAN > 60
[2017-10-20] MEDS ORDERED: (Novolin R) Insulin Human Regular 100 units/ml vial ONE ×2 (00:45→01:08)
--- NOTE | 2017-10-20 00:48 | C.PDOC ---
Time Seen by Provider: 10/20/17 00:08 Chief Complaint (Nursing): High Blood Sugar History Per: Patient Onset/Duration Of Symptoms: Days (1) Current Symptoms Are (Timing): Still Present Severity: Severe Current Diabetic Medications: Insulin Causative (Exacerbating) Factor(s): Missed Taking Medication Associated Infectious Symptoms: Cough, Other (Thirst) Additional History Per: Prior Records Past Medical History Reviewed: Historical Data, Nursing Documentation, Vital Signs Vital Signs: Last Vital Signs Temp 97.4 F L 10/20/17 00:38 Pulse 98 H 10/19/17 23:46 Resp 20 10/19/17 23:46 BP 107/63 10/19/17 23:46 Pulse Ox 97 10/20/17 00:48 - Medical History PMH: Bipolar Disorder, Crohn's Disease, Depression, Diabetes (Type 1), Schizophrenia Surgical History: No Surg Hx - [facility] Procedures (07/21/17) (07/21/17) Family History: States: Unknown Family Hx - Social History Hx Tobacco Use: No Hx Alcohol Use: No Hx Substance Use: Yes - Immunization History Hx Tetanus Toxoid Vaccination: Yes Hx Influenza Vaccination: Yes Hx Pneumococcal Vaccination: Yes Review Of Systems Except As Marked, All Systems Reviewed And Found Negative. Constitutional: Positive for: Malaise. Negative for: Fever Respiratory: Positive for: Cough. Negative for: Shortness of Breath, Hemoptysis Gastrointestinal: Negative for: Vomiting Genitourinary: Positive for: Frequency Musculoskeletal: Negative for: Neck Pain Skin: Negative for: Rash Neurological: Negative for: Weakness, Numbness, Seizures, Altered Mental Status Physical Exam - Physical Exam Appears: Chronically Ill Skin: Normal Color, Warm, Dry, No Rash Head: Atraumatic, Normacephalic Eye(s): bilateral: PERRL, EOMI Oral Mucosa: Dry Neck: Normal ROM, Supple Cardiovascular: Rhythm Regular Respiratory: Normal Breath Sounds, No Accessory Muscle Use Gastrointestinal/Abdominal: Soft, No Tenderness Back: No CVA Tenderness Extremity: Normal ROM Neurological/Psych: Oriented x3, Normal Motor, Normal Sensation ED Course And Treatment - Laboratory Results Result Diagrams: 10/20/17 00:21 10/20/17 00:21 Lab Interpretation: Abnormal Interpretation Of Abnormal: Hyperglycemia. Elevated lactate level. O2 Sat by Pulse Oximetry: 97 Pulse Ox Interpretation: Normal - Radiology CXR: Interpreted by Me, Viewed By Me CXR Interpretation: Yes: No Acute Disease Progress - Interventions Interventions:: Observation, Intravenous fluid - Medications Administered Intravenous: Other (Insulin) - Data Reviewed Data Reviewed: Lab, Diagnostic imaging, Old records Disposition - Disposition Disposition Time: 00:54 Condition: SERIOUS - POA Present On Arrival: Poor Glycemic Control - Clinical Impression Clinical Impression: Hyperglycemia, Dehydration, DM I (diabetes mellitus, type I), uncontrolled Physician Patient Turnover Patient Signed Over To: Dl Ziegler Handoff Comments: to reassess and repeat VBG shock panel after insulin/fluids.
[2017-10-20] MEDS ORDERED: (Novolin R) Insulin Human Regular 100 units/ml vial SC ONE (00:55)
--- NOTE | 2017-10-20 01:43 | CP.PCM.HP ---
History of Present Illness - History of Present Illness History of Present Illness: CC: "i ran out of insulin" HPI: Mr Gonzalez is a 26 year old male with a PMHx of IDDM (Type 1), Self -reported Crohn's disease, Gastritis, Substance Abuse Disorder, Bipolar, Schizophrenia who presented to [facility] ER because he ran out of his insulin today. He normally takes 20u of Humalog 3x a day. He says he attempted to reach his PMD, Dr Barnett but was unable to do so. He stated he began to feel dizzy around noon-time. He also endorses sore throat and dry cough that has been ongoing for the past 1 week, he says he has trouble breathing. He states he felt a subjective fever 2 days ago. He also complains of right sided abdominal pain. He denies chest pain, dysuria, diarrhea, bleeding. PMD: Dr Barnett PMHx: IDDM (Type 1), Self-reported Crohn's disease, Gastritis, Substance Abuse Disorder, Bipolar, Schizophrenia PSHx: Pt with recent EGD 07/20/17 with LAGC esophagitis and duodenitis Allergies: Denies Home Meds: Humolog 20u SC TID, Seroquel, Trazadone FamHx: FHX no familiy history of IBD/GI cancer; Diabetes on his father's side SocialHx: lives alone, unemployed, smokes Marijuana every other day for chronic pain, admits using cocaine from his uncle (last use 2 months ago); Denies alcohol or tobacco use Present on Admission - Present on Admission Any Indicators Present on Admission: No Review of Systems - Constitutional Constitutional: Headache. absent: Chills, Fever, Weight Loss - EENT Eyes: absent: Change in Vision - Cardiovascular Cardiovascular: Chest Pain. absent: Chest Pain with Activity, Dyspnea on Exertion, Pain Radiating to Arm/Neck/Jaw - Respiratory Respiratory: absent: Cough, Wheezing - Gastrointestinal Gastrointestinal: Abdominal Pain, Bloating. absent: Constipation, Diarrhea, Nausea, Vomiting - Genitourinary Genitourinary: absent: Dysuria - Musculoskeletal Musculoskeletal: Back Pain, Muscle Weakness - Integumentary Integumentary: absent: Bleeding Lesions - Neurological Neurological: Dizziness. 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) - RENAL Hx Chronic Kidney Disease: No - ENDOCRINE/METABOLIC Hx Endocrine Disorders: Yes Hx Diabetes Mellitus Type 1: Yes (insulin dependent) - HEMATOLOGICAL/ONCOLOGICAL Hx Blood Disorders: No Hx Human Immunodeficiency Virus (HIV): No - INTEGUMENTARY Hx Dermatological Problems: No - MUSCULOSKELETAL/RHEUMATOLOGICAL Hx Musculoskeletal Disorders: No Hx Falls: No - GASTROINTESTINAL Hx Crohn's Disease: Yes - GENITOURINARY/GYNECOLOGICAL Hx Genitourinary Disorders: No - PSYCHIATRIC Hx Bipolar Disorder: Yes Hx Depression: Yes Hx Schizophrenia: Yes Hx Substance Use: Yes - SURGICAL HISTORY Hx Surgeries: Yes Other/Comment: wired Jaw - ANESTHESIA Hx Anesthesia: Yes Hx Anesthesia Reactions: No Hx Malignant Hyperthermia: No Meds Allergies/Adverse Reactions: Allergies Allergy/AdvReac Type Severity Reaction Status Date / Time No Known Allergies Allergy Verified 10/19/17 23:56 Physical Exam - Constitutional Appears: Unkempt, Chronically Ill - Head Exam Head Exam: ATRAUMATIC, NORMAL INSPECTION - Eye Exam Eye Exam: EOMI Pupil Exam: PERRL - ENT Exam ENT Exam: Mucous Membranes Moist - Neck Exam Neck exam: Positive for: Normal Inspection. Negative for: Lymphadenopathy, Tenderness - Respiratory Exam Respiratory Exam: Clear to Auscultation Bilateral, NORMAL BREATHING PATTERN. absent: Rales, Rhonchi, Wheezes - Cardiovascular Exam Cardiovascular Exam: Tachycardia, REGULAR RHYTHM, +S1, +S2. absent: JVD, Systolic Murmur - GI/Abdominal Exam GI & Abdominal Exam: Normal Bowel Sounds, Soft, Tenderness. absent: Distended, Firm, Guarding, Rebound, Rigid - Rectal Exam Rectal Exam: Deferred - Extremities Exam Extremities exam: Positive for: calf tenderness, normal capillary refill, normal inspection, pedal pulses present. Negative for: pedal edema - Back Exam Back exam: NORMAL INSPECTION. absent: CVA tenderness (L), CVA tenderness (R), rash noted - Neurological Exam Neurological exam: Alert, CN II-XII Intact, Oriented x3 - Skin Skin Exam: Intact, Normal Color, Warm Results - Vital Signs Recent Vital Signs: Last Vital Signs Temp 97.4 F L 10/20/17 00:38 Pulse 98 H 10/19/17 23:46 Resp 20 10/19/17 23:46 BP 107/63 10/19/17 23:46 Pulse Ox 97 10/20/17 00:55 - Labs Result Diagrams: 10/20/17 00:21 10/20/17 00:21 Labs: Laboratory Results - last 24 hr 10/19/17 10/20/17 10/20/17 23:52 00:20 00:21 WBC 5.4 RBC 4.32 L Hgb 13.2 Hct 42.1 MCV 97.4 H D MCH 30.6 MCHC 31.4 L RDW 14.9 H Plt Count 219 MPV 10.4 Neut % (Auto) 63.8 Lymph % (Auto) 20.7 Buchanan % (Auto) 13.9 H Eos % (Auto) 0.8 Baso % (Auto) 0.8 Neut # (Auto) 3.4 Lymph # (Auto) 1.1 Buchanan # (Auto) 0.7 Eos # (Auto) 0.0 Baso # (Auto) 0.0 PT INR APTT pO2 40 VBG pH 7.29 L VBG pCO2 54 VBG HCO3 23.0 VBG Total CO2 27.7 VBG O2 Sat (Calc) 84.0 H VBG Base Excess -1.4 L VBG Potassium 4.3 Sodium 136.0 Chloride 94.0 L Glucose > 750 H* D Lactate 3.9 H Crit Value Called To Ramonita diop/rn Crit Value Called By Omari gilmore/rt Crit Value Read Back Y Blood Gas Notified Time 30 Potassium Carbon Dioxide Anion Gap BUN Creatinine Est GFR ( Amer) Est GFR (Non-Af Amer) POC Glucose (mg/dL) > 500 H* Random Glucose Calcium Total Bilirubin AST ALT Alkaline Phosphatase Total Protein Albumin Globulin Albumin/Globulin Ratio Venous Blood Potassium 4.3 Urine Color Urine Clarity Urine pH Ur Specific Spring Urine Protein Urine Glucose (UA) Urine Ketones Urine Blood Urine Nitrate Urine Bilirubin Urine Urobilinogen Ur Leukocyte Esterase Serum Ketones 10/20/17 10/20/17 10/20/17 00:21 00:21 00:21 WBC RBC Hgb Hct MCV MCH MCHC RDW Plt Count MPV Neut % (Auto) Lymph % (Auto) Buchanan % (Auto) Eos % (Auto) Baso % (Auto) Neut # (Auto) Lymph # (Auto) Buchanan # (Auto) Eos # (Auto) Baso # (Auto) PT 11.0 INR 1.0 APTT 27 pO2 VBG pH VBG pCO2 VBG HCO3 VBG Total CO2 VBG O2 Sat (Calc) VBG Base Excess VBG Potassium Sodium 128 L Chloride 89 L Glucose Lactate Crit Value Called To Crit Value Called By Crit Value Read Back Blood Gas Notified Time Potassium 4.9 Carbon Dioxide 22 Anion Gap 21 H BUN 11 Creatinine 0.7 L Est GFR ( Amer) > 60 Est GFR (Non-Af Amer) > 60 POC Glucose (mg/dL) Random Glucose 1195 H* Calcium 8.9 Total Bilirubin 0.4 AST 93 H D ALT 89 H D Alkaline Phosphatase 222 H D Total Protein 7.0 Albumin 4.0 Globulin 3.1 Albumin/Globulin Ratio 1.3 Venous Blood Potassium Urine Color Colorless Urine Clarity Clear Urine pH 6.0 Ur Specific Spring 1.029 Urine Protein Negative Urine Glucose (UA) 3+ H Urine Ketones Negative Urine Blood Negative Urine Nitrate Negative Urine Bilirubin Negative Urine Urobilinogen Normal Ur Leukocyte Esterase Neg Serum Ketones Negative 10/20/17 10/20/17 01:22 01:24 WBC RBC Hgb Hct MCV MCH MCHC RDW Plt Count MPV Neut % (Auto) Lymph % (Auto) Buchanan % (Auto) Eos % (Auto) Baso % (Auto) Neut # (Auto) Lymph # (Auto) Buchanan # (Auto) Eos # (Auto) Baso # (Auto) PT INR APTT pO2 VBG pH VBG pCO2 VBG HCO3 VBG Total CO2 VBG O2 Sat (Calc) VBG Base Excess VBG Potassium Sodium Chloride Glucose Lactate Crit Value Called To Crit Value Called By Crit Value Read Back Blood Gas Notified Time Potassium Carbon Dioxide Anion Gap BUN Creatinine Est GFR ( Amer) Est GFR (Non-Af Amer) POC Glucose (mg/dL) > 500 H* > 500 H* Random Glucose Calcium Total Bilirubin AST ALT Alkaline Phosphatase Total Protein Albumin Globulin Albumin/Globulin Ratio Venous Blood Potassium Urine Color Urine Clarity Urine pH Ur Specific Spring Urine Protein Urine Glucose (UA) Urine Ketones Urine Blood Urine Nitrate Urine Bilirubin Urine Urobilinogen Ur Leukocyte Esterase Serum Ketones Assessment & Plan (1) Hyperglycemic crisis in diabetes mellitus Assessment and Plan: Random glucose on admission: 1195 Serum ketones NEGATIVE Blood Gas PH 7.29, Anion Gap ELEVATED 21, Lactate ELEVATED 3.9 HgbA1C 08/31: 14.1 Meds: ED course: Novolin 10u IV -> Insulin 20u IV, NS Bolus 3L Accuchecks q4H w/ Regular Insulin coverage medium dose q4H Status: Acute Priority: High (2) Chest pain Assessment and Plan: Patient reports chest pain; reproducible Hx of QT prolongation (2/2 to psychiatric medications) * EKG this admission showed QTc of 416 Exercise Stress test in 07/30: Severely decreased exercise tolerance 2/2 to musculoskeletal chest pain Echo: 07/30: NORMAL F/U LEIGHTON Status: Acute Priority: Low (3) Cough Assessment and Plan: F/U Rapid Flu F/U CXR official read Guaifenesin/Codeine 10ml PO Q8H PRN Status: Acute Priority: Medium (4) Elevated LFTs Assessment and Plan: Patient w/ complaints of right sided abdominal pain AST, ALT, Alk Phos ELEVATED T Bili NORMAL Old CT abd/pelvis w/ IV contrast from 2016 showed enlarged liver with mild fatty infiltration. F/U Abdominal Ultrasound Status: Acute Priority: Medium (5) Prophylactic measure Assessment and Plan: Lovenox 40mg SC QD Protonix 40mg PO QD NPO for now Status: Acute Priority: Low
[2017-10-20] MEDS ORDERED: (Novolin R) Insulin Human Regular 100 units/ml vial SC SCH (02:00)
[2017-10-20] MEDS: Sodium Chloride 0.9% 1,000 ML IV SCH ×3 (02:10→19:19)
[2017-10-20 02:54] LABS: CK-MB 0.57 ng/mL (0.0-3.38)
[2017-10-20] MEDS: guaiFENesin-Codeine 100-10mg/5ml Syrup (10ml) UD PO PRN ×3 (02:54→19:05)
[2017-10-20] MEDS: (Novolin R) Insulin Human Regular 100 units/ml vial SC SCH ×6 (02:57→22:33)
[2017-10-20 07:32] LABS: BASO % 0.8 % (0.0-2.0); EOS # 0.1 K/uL (0.0-0.7); EOS % 1.7 % (0.0-4.0); LYMPH # 1.1 K/uL (1.0-4.3); LYMPH % 21.2 % (20.0-40.0); MEAN CORPUSCULAR HGB CONC 33.9 g/dL (33.0-37.0); MEAN PLATELET VOLUME 9.5 fL (7.2-11.7); MONO # 0.8 K/uL (0.0-0.8); MONO % 15.5 % (0.0-10.0); NEUT % 60.8 % (50.0-75.0); RBC 3.99 Mil/uL (4.40-5.90); RED CELL DISTRIBUTION WIDTH 13.9 % (11.5-14.5)
--- NOTE | 2017-10-20 07:35 | RAD ---
Chest x-ray single frontal view History: Cough. Comparison: 08/26/2017 Findings: No focal infiltrate or effusion. Heart size within normal limits. Impression: No focal infiltrate or effusion.
[2017-10-20 07:41] LABS: MEAN CELL VOLUME 88.5 fL (80.0-94.0)
[2017-10-20 07:55] LABS: ALB/GLOB RATIO 1.2 (1.0-2.1); ALBUMIN 3.4 g/dL (3.5-5.0); ALT/SGPT 73 U/L (21-72); AST/SGOT 72 U/L (17-59); BLOOD UREA NITROGEN 6 mg/dL (9-20); CALCIUM 7.9 mg/dl (8.6-10.4); GFR AFRICAN-AMERICAN > 60; GFR NON-AFRICAN AMERICAN > 60
--- NOTE | 2017-10-20 09:03 | CP.PCM.PN ---
Subjective - Date & Time of Evaluation Date of Evaluation: 10/20/17 Time of Evaluation: 09:00 - Subjective Subjective: Medicine Note for Dr. Sandoval's Service Patient was seen and examined at bedside. Patient reports abdominal pain. Denied fever, chills, headache, chest pain, SOB, n/v/d/c, or urinary symptoms. Objective - Vital Signs/Intake and Output Vital Signs (last 24 hours): Temp Pulse Resp BP Pulse Ox 99.1 F 89 20 114/77 97 10/20/17 08:20 10/20/17 08:20 10/20/17 08:20 10/20/17 08:20 10/20/17 08:20 Intake and Output: 10/20/17 10/20/17 06:59 18:59 Intake Total 562 Balance 562 - Medications Medications: Current Medications Enoxaparin Sodium (Lovenox) 40 mg SC DAILY JOHANA Guaifenesin/Codeine Phosphate (Guaifenesin/Codeine) 10 ml PO Q8H PRN PRN Reason: Cough and congestion Last Admin: 10/20/17 02:54 Dose: 10 ml Sodium Chloride (Sodium Chloride 0.9%) 1,000 mls @ 125 mls/hr IV .Q8H JOHANA Last Admin: 10/20/17 02:10 Dose: 125 mls/hr Insulin Human Regular (Novolin R) 0 unit SC Q4H JOHANA PRN Reason: Protocol Last Admin: 10/20/17 06:00 Dose: Not Given Pantoprazole Sodium (Protonix Ec Tab) 40 mg PO DAILY JOHANA Potassium Chloride (Potassium Chloride Oral Soln) 40 meq PO ONCE ONE Stop: 10/20/17 10:01 - Labs Labs: 10/20/17 07:09 10/20/17 07:09 PT 11.0 SECONDS (9.7-12.2) 10/20/17 00:21 INR 1.0 10/20/17 00:21 APTT 27 SECONDS (21-34) 10/20/17 00:21 - Additional Findings Additional findings: - Constitutional Appears: Unkempt, Chronically Ill - Head Exam Head Exam: ATRAUMATIC, NORMAL INSPECTION - Eye Exam Eye Exam: EOMI Pupil Exam: PERRL - ENT Exam ENT Exam: Mucous Membranes Moist - Neck Exam Neck exam: Positive for: Normal Inspection. Negative for: Lymphadenopathy, Tenderness - Respiratory Exam Respiratory Exam: Clear to Auscultation Bilateral, NORMAL BREATHING PATTERN. absent: Rales, Rhonchi, Wheezes - Cardiovascular Exam Cardiovascular Exam: Tachycardia, REGULAR RHYTHM, +S1, +S2. absent: JVD, Systolic Murmur - GI/Abdominal Exam GI & Abdominal Exam: Normal Bowel Sounds, Soft, Tenderness. absent: Distended, Firm, Guarding, Rebound, Rigid - Rectal Exam Rectal Exam: Deferred - Extremities Exam Extremities exam: Positive for: calf tenderness, normal capillary refill, normal inspection, pedal pulses present. Negative for: pedal edema - Back Exam Back exam: NORMAL INSPECTION. absent: CVA tenderness (L), CVA tenderness (R), rash noted - Neurological Exam Neurological exam: Alert, CN II-XII Intact, Oriented x3 - Skin Skin Exam: Intact, Normal Color, Warm Assessment and Plan - Assessment and Plan (Free Text) Plan: Hyperglycemic crisis in diabetes mellitus Assessment and Plan: Endocrinology consulted- Dr. Moon- help appreciated Random glucose on admission: 1195 Serum ketones NEGATIVE Blood Gas PH 7.29, Anion Gap ELEVATED 21, Lactate ELEVATED 3.9 HgbA1C 08/31: 14.1 Meds: ED course: Novolin 10u IV -> Insulin 20u IV, NS Bolus 3L Accuchecks Resumed home medications ISS-low Chest pain Assessment and Plan: Patient reports chest pain; reproducible Hx of QT prolongation (2/2 to psychiatric medications) * EKG this admission showed QTc of 416 Exercise Stress test in 07/30: Severely decreased exercise tolerance 2/2 to musculoskeletal chest pain Echo: 07/30: NORMAL LEIGHTON negative x 2 Cough Assessment and Plan: Rapid Flu- negative CXR: unremarkable Guaifenesin/Codeine 10ml PO Q8H PRN Elevated LFTs Assessment and Plan: Patient w/ complaints of right sided abdominal pain AST, ALT, Alk Phos ELEVATED T Bili NORMAL Old CT abd/pelvis w/ IV contrast from 2016 showed enlarged liver with mild fatty infiltration. Abdominal Ultrasound- patient refused Hx of Opioid Use Disorder Assessment and Plan: Continue to monitor for withdrawal symptoms Prophylactic measure Assessment and Plan: Lovenox 40mg SC QD Protonix 40mg PO QD Disposition: Anticipate discharge tomorrow. DW Dr. Sandoval, Olga Andre DO, PGY-1
[2017-10-20] MEDS ORDERED: Potassium Chloride 20 mEq/15 ml LIQ UD PO ONE (10:00)
[2017-10-20] MEDS: Pantoprazole 40 mg EC Tab PO SCH (10:02)
[2017-10-20] MEDS: Enoxaparin 40 mg Syringe SC SCH (10:03)
--- NOTE | 2017-10-20 12:18 | RAD ---
HISTORY: productive cough COMPARISON: Chest x-ray performed earlier the same day. TECHNIQUE: Chest PA and lateral FINDINGS: LUNGS: No focal consolidation. Please note that chest x-ray has limited sensitivity for the detection of pulmonary masses. PLEURA: No significant pleural effusion identified. No definite pneumothorax . CARDIOVASCULAR: Heart size appears within normal limits. OSSEOUS STRUCTURES: No acute osseous abnormality identified. VISUALIZED UPPER ABDOMEN: Unremarkable. OTHER FINDINGS: Lateral view demonstrates soft tissue protuberance involving the upper back of unclear significance. IMPRESSION: No focal consolidation, significant pleural effusion, or definite pneumothorax identified. Lateral view demonstrates soft tissue protuberance involving the upper back of unclear significance.
[2017-10-20 13:30] LABS: CK-MB 0.77 ng/mL (0.0-3.38)
[2017-10-20] MEDS: (Novolog) Insulin Aspart, Recombinant 100 u/ml 10 ml vial SC SCH (17:56)
[2017-10-20] MEDS ORDERED: (Lantus) Insulin Glargine, Recombinant SC SCH (22:00)
[2017-10-20] MEDS ORDERED: DiphenhydrAMINE 50 mg/ml Inj IVP ONE (23:00)
[2017-10-21] MEDS: Sodium Chloride 0.9% 1,000 ML IV SCH ×4 (02:06→21:59)
[2017-10-21] MEDS: guaiFENesin-Codeine 100-10mg/5ml Syrup (10ml) UD PO PRN ×2 (05:06→16:07)
[2017-10-21] MEDS: (Novolin R) Insulin Human Regular 100 units/ml vial SC SCH ×4 (07:56→22:15)
[2017-10-21] MEDS: (Novolog) Insulin Aspart, Recombinant 100 u/ml 10 ml vial SC SCH ×3 (07:57→17:18)
[2017-10-21 08:23] LABS: BASO % 0.6 % (0.0-2.0); EOS # 0.1 K/uL (0.0-0.7); EOS % 1.3 % (0.0-4.0); HEMOGLOBIN 13.3 g/dL (12.0-18.0); LYMPH # 1.2 K/uL (1.0-4.3); LYMPH % 22.6 % (20.0-40.0); MEAN CORPUSCULAR HEMOGLOBIN 30.2 pg (27.0-31.0); MEAN CORPUSCULAR HGB CONC 33.9 g/dL (33.0-37.0); MEAN PLATELET VOLUME 9.3 fL (7.2-11.7); MONO # 0.7 K/uL (0.0-0.8); MONO % 13.6 % (0.0-10.0); NEUT # 3.2 K/uL (1.8-7.0); NEUT % 61.9 % (50.0-75.0); NRBC % 0.2 % (0.0-2.0); RBC 4.4 Mil/uL (4.40-5.90); RED CELL DISTRIBUTION WIDTH 13.9 % (11.5-14.5); WHITE BLOOD COUNT 5.2 K/uL (4.8-10.8)
[2017-10-21 08:49] LABS: ALB/GLOB RATIO 1.2 (1.0-2.1); ALBUMIN 3.6 g/dL (3.5-5.0); ALT/SGPT 70 U/L (21-72); AST/SGOT 75 U/L (17-59); BLOOD UREA NITROGEN 9 mg/dL (9-20); CALCIUM 8.2 mg/dl (8.6-10.4); GFR AFRICAN-AMERICAN > 60; GFR NON-AFRICAN AMERICAN > 60
[2017-10-21] MEDS: Pantoprazole 40 mg EC Tab PO SCH (09:23)
[2017-10-21] MEDS: Enoxaparin 40 mg Syringe SC SCH (09:23)
--- NOTE | 2017-10-21 10:04 | CP.PCM.PN ---
Subjective - Date & Time of Evaluation Date of Evaluation: 10/21/17 Time of Evaluation: 07:25 - Subjective Subjective: Medicine Note for Dr. Sandoval's Service Patient was seen and examined at bedside this AM. Patient reports mild RUQ abdominal pain, however is refusing abdominal US and abd CT scan. Tolerating diet, +BM this am. Denies f/c, headache, chest pain, SOB, n/v/d/c, urinary symptoms, or any additional acute complaints. Objective - Vital Signs/Intake and Output Vital Signs (last 24 hours): Temp Pulse Resp BP Pulse Ox 98.7 F 73 20 116/80 97 10/21/17 08:27 10/21/17 08:27 10/21/17 08:27 10/21/17 08:27 10/21/17 08:27 Intake and Output: 10/21/17 10/21/17 06:59 18:59 Intake Total 1550 1360 Output Total 1000 Balance 550 1360 - Medications Medications: Current Medications Enoxaparin Sodium (Lovenox) 40 mg SC DAILY [facility] Last Admin: 10/21/17 09:23 Dose: 40 mg Guaifenesin/Codeine Phosphate (Guaifenesin/Codeine) 10 ml PO Q8H PRN PRN Reason: Cough and congestion Last Admin: 10/21/17 05:06 Dose: 10 ml Sodium Chloride (Sodium Chloride 0.9%) 1,000 mls @ 125 mls/hr IV .Q8H [facility] Last Admin: 10/21/17 02:06 Dose: 125 mls/hr Insulin Aspart (Novolog) 20 unit SC ACTID [facility] Last Admin: 10/21/17 07:57 Dose: 20 unit Insulin Glargine (Lantus) 20 unit SC HS [facility] Last Admin: 10/20/17 22:33 Dose: 20 units Insulin Human Regular (Novolin R) 0 unit SC ACHS [facility] PRN Reason: Protocol Last Admin: 10/21/17 07:56 Dose: 3 unit Pantoprazole Sodium (Protonix Ec Tab) 40 mg PO DAILY [facility] Last Admin: 10/21/17 09:23 Dose: 40 mg - Labs Labs: 10/21/17 08:16 10/21/17 08:16 PT 11.0 SECONDS (9.7-12.2) 10/20/17 00:21 INR 1.0 10/20/17 00:21 APTT 27 SECONDS (21-34) 10/20/17 00:21 - Additional Findings Additional findings: - Constitutional Appears: Unkempt, Chronically Ill - Head Exam Head Exam: ATRAUMATIC, NORMAL INSPECTION - Eye Exam Eye Exam: EOMI Pupil Exam: PERRL - ENT Exam ENT Exam: Mucous Membranes Moist - Neck Exam Neck exam: Positive for: Normal Inspection. Negative for: Lymphadenopathy, Tenderness - Respiratory Exam Respiratory Exam: Clear to Auscultation Bilateral, NORMAL BREATHING PATTERN. absent: Rales, Rhonchi, Wheezes - Cardiovascular Exam Cardiovascular Exam: REGULAR RHYTHM, +S1, +S2. absent: JVD, Systolic Murmur - GI/Abdominal Exam GI & Abdominal Exam: Normal Bowel Sounds, Soft, Tenderness (RUQ). absent: Distended, Firm, Guarding, Rebound, Rigid - Rectal Exam Rectal Exam: Deferred - Extremities Exam Extremities exam: Positive for: calf tenderness, normal capillary refill, normal inspection, pedal pulses present. Negative for: pedal edema - Back Exam Back exam: NORMAL INSPECTION. absent: CVA tenderness (L), CVA tenderness (R), rash noted - Neurological Exam Neurological exam: Alert, CN II-XII Intact, Oriented x3 - Skin Skin Exam: Intact, Normal Color, Warm Assessment and Plan - Assessment and Plan (Free Text) Assessment: Hyperglycemic crisis in diabetes mellitus Assessment and Plan: 10/21: Glucose 99, monitor Endocrinology consulted- Dr. Moon- help appreciated Random glucose on admission: 1195 Serum ketones NEGATIVE Blood Gas PH 7.29, Anion Gap ELEVATED 21, Lactate ELEVATED 3.9 HgbA1C 08/31: 14.1 Meds: ED course: Novolin 10u IV -> Insulin 20u IV, NS Bolus 3L Accuchecks Resumed home medications ISS-low Chest pain Assessment and Plan: 10/21: patient with generalized pain, BP 109/72, continue to monitor. Patient reports chest pain; reproducible Hx of QT prolongation (2/2 to psychiatric medications) * EKG this admission showed QTc of 416 Exercise Stress test in 07/30: Severely decreased exercise tolerance 2/2 to musculoskeletal chest pain Echo: 07/30: NORMAL LEIGHTON negative x 2 Cough Assessment and Plan: Rapid Flu- negative CXR: unremarkable Guaifenesin/Codeine 10ml PO Q8H PRN Elevated LFTs Assessment and Plan: 10/21: f/u Abdominal US - patient previously refused. He now understands the importance of this exam. Patient w/ complaints of right sided abdominal pain AST, ALT, Alk Phos ELEVATED T Bili NORMAL Old CT abd/pelvis w/ IV contrast from 2016 showed enlarged liver with mild fatty infiltration. Abdominal Ultrasound- patient refused Hx of Opioid Use Disorder Assessment and Plan: Continue to monitor for withdrawal symptoms Prophylactic measure Assessment and Plan: Lovenox 40mg SC QD Protonix 40mg PO QD Disposition: Possible D/c tomorrow. Order placed for Abdominal US.
--- NOTE | 2017-10-21 21:28 | CP.PCM.CON ---
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) - RENAL Hx Chronic Kidney Disease: No - ENDOCRINE/METABOLIC Hx Endocrine Disorders: Yes Hx Diabetes Mellitus Type 1: Yes (insulin dependent) - HEMATOLOGICAL/ONCOLOGICAL Hx Blood Disorders: No Hx Human Immunodeficiency Virus (HIV): No - INTEGUMENTARY Hx Dermatological Problems: No - MUSCULOSKELETAL/RHEUMATOLOGICAL Hx Musculoskeletal Disorders: No Hx Falls: No - GASTROINTESTINAL Hx Gastrointestinal Disorders: Yes Hx Crohn's Disease: Yes - GENITOURINARY/GYNECOLOGICAL Hx Genitourinary Disorders: No - PSYCHIATRIC Hx Psychophysiologic Disorder: Yes Hx Bipolar Disorder: Yes Hx Depression: Yes Hx Schizophrenia: Yes Hx Substance Use: Yes (smokes marijuana occasionally for chronic pain) - SURGICAL HISTORY Hx Surgeries: Yes Other/Comment: wired Jaw - ANESTHESIA Hx Anesthesia: Yes Hx Anesthesia Reactions: No Hx Malignant Hyperthermia: No Has any member of the family had a problem w/ anesthesia?: No Meds Allergies/Adverse Reactions: Allergies Allergy/AdvReac Type Severity Reaction Status Date / Time No Known Allergies Allergy Verified 10/19/17 23:56 - Medications Medications: Current Medications Enoxaparin Sodium (Lovenox) 40 mg SC DAILY [facility] Last Admin: 10/21/17 09:23 Dose: 40 mg Guaifenesin/Codeine Phosphate (Guaifenesin/Codeine) 10 ml PO Q8H PRN PRN Reason: Cough and congestion Last Admin: 10/21/17 16:07 Dose: 10 ml Sodium Chloride (Sodium Chloride 0.9%) 1,000 mls @ 125 mls/hr IV .Q8H [facility] Last Admin: 10/21/17 18:00 Dose: Not Given Insulin Aspart (Novolog) 20 unit SC ACTID [facility] Last Admin: 10/21/17 17:18 Dose: 20 unit Insulin Glargine (Lantus) 20 unit SC HS [facility] Last Admin: 10/20/17 22:33 Dose: 20 units Insulin Human Regular (Novolin R) 0 unit SC ACHS [facility] PRN Reason: Protocol Last Admin: 10/21/17 17:17 Dose: 4 unit Pantoprazole Sodium (Protonix Ec Tab) 40 mg PO DAILY [facility] Last Admin: 10/21/17 09:23 Dose: 40 mg Results - Vital Signs Recent Vital Signs: Last Vital Signs Temp 98.4 F 10/21/17 16:00 Pulse 93 H 10/21/17 16:00 Resp 20 10/21/17 16:00 BP 119/81 10/21/17 16:00 Pulse Ox 96 10/21/17 16:00 - Labs Result Diagrams: 10/21/17 08:16 10/21/17 08:16 Labs: Laboratory Results - last 24 hr 10/20/17 10/21/17 10/21/17 21:39 06:52 08:16 WBC 5.2 RBC 4.40 Hgb 13.3 Hct 39.1 MCV 89.0 MCH 30.2 MCHC 33.9 RDW 13.9 Plt Count 228 MPV 9.3 Neut % (Auto) 61.9 Lymph % (Auto) 22.6 [place] % (Auto) 13.6 H Eos % (Auto) 1.3 Baso % (Auto) 0.6 Neut # (Auto) 3.2 Lymph # (Auto) 1.2 [place] # (Auto) 0.7 Eos # (Auto) 0.1 Baso # (Auto) 0.0 Sodium Potassium Chloride Carbon Dioxide Anion Gap BUN Creatinine Est GFR ( Amer) Est GFR (Non-Af Amer) POC Glucose (mg/dL) 232 H 281 H Random Glucose Calcium Phosphorus Magnesium Total Bilirubin AST ALT Alkaline Phosphatase Total Protein Albumin Globulin Albumin/Globulin Ratio 10/21/17 10/21/17 10/21/17 08:16 11:01 11:03 WBC RBC Hgb Hct MCV MCH MCHC RDW Plt Count MPV Neut % (Auto) Lymph % (Auto) [place] % (Auto) Eos % (Auto) Baso % (Auto) Neut # (Auto) Lymph # (Auto) [place] # (Auto) Eos # (Auto) Baso # (Auto) Sodium 134 Potassium 4.2 Chloride 98 Carbon Dioxide 24 Anion Gap 16 BUN 9 Creatinine 0.5 L Est GFR ( Amer) > 60 Est GFR (Non-Af Amer) > 60 POC Glucose (mg/dL) 59 L 68 Random Glucose 271 H Calcium 8.2 L Phosphorus 3.1 Magnesium 1.9 Total Bilirubin 0.4 AST 75 H ALT 70 Alkaline Phosphatase 116 Total Protein 6.5 Albumin 3.6 Globulin 2.9 Albumin/Globulin Ratio 1.2 10/21/17 16:44 WBC RBC Hgb Hct MCV MCH MCHC RDW Plt Count MPV Neut % (Auto) Lymph % (Auto) [place] % (Auto) Eos % (Auto) Baso % (Auto) Neut # (Auto) Lymph # (Auto) [place] # (Auto) Eos # (Auto) Baso # (Auto) Sodium Potassium Chloride Carbon Dioxide Anion Gap BUN Creatinine Est GFR ( Amer) Est GFR (Non-Af Amer) POC Glucose (mg/dL) 302 H Random Glucose Calcium Phosphorus Magnesium Total Bilirubin AST ALT Alkaline Phosphatase Total Protein Albumin Globulin Albumin/Globulin Ratio Assessment & Plan (1) Hypoglycemia due to type 1 diabetes mellitus Assessment and Plan: Endocrine consult reason for consult: uncontrolled diabetes Source: pt and chart review is 26 y/o admitted for hyperglycemia > 500 pt. known to Endocrine with type 1 diabetes , admitted for hyperglycemia since ran out of his insulin ! (+) neuropathy /gastroparesis , (-) retinopathy , with cataract , (-) nephropathy (-) CAD (-) PVD outpatient diabetes management regimen : lantus 20 units qhs & Humalog 20 units tid blood glucose log : 200-300 one episode of symtomatic hypoglycemia , shaky & sweating @ 11 am , as per pt does not like hospital food Allergy NKDA Past medical history: croh's disease Past surgical history: denies Psychiatry history: (+) psychiatry disorder Social history : denies smoking , ETOH use , illicit drug use Family history : irrelvant ROS: Constitutional: denies fever, tiredness/weakness. HEENT: denies earache, change in voice .Respiratory: denies cough, sob . CVS :no chest pain, no palpitations . Abdomen: no abdominal pain, no nausea /vomiting, no change bowel movement. HOLISTIC NUTRITIONIST : denies light-headedness, dizziness. Extremities: no edema, no tremors. Skin: no itching, no rash Physical exam Well-developed AAO x3 , ,NAD VSS HEENT: norm cephalic, atraumatic, no lid lag , no exophthalmos NECK: supple, no palpable lymphadenopathy THYROID: no palpable thyromegaly, not tender CHEST: fair air entry, bilateral, CVS: S1,S2 ABDOMEN: bowel sound present, benign, obese, no wide purple striae , no bruises EXTREMITIES: no edema, clubbing or cyanosis, no palpable hand tremors Skin: no acanthosis nigricans , (+) tattoo lab: 08/2017 tsh 0.46, a1c 14.1 Assessment sever symptomatic hypoglycemia uncontrolled type 1 diabetes plan increase lantus 22 units stop Novolog start Novoloin R low dose coverage, no 3 am coverage start novoloin R 20units tid with meals if eat > 60% , 17 units if eat less than 60% of the meal Thank you for allowing me to participate in the care of the patient, we will follow with you. Status: Acute (2) DM I (diabetes mellitus, type I), uncontrolled Status: Chronic
[2017-10-21] MEDS ORDERED: DiphenhydrAMINE 50 mg/ml Inj IVP ONE (22:00)
[2017-10-21] MEDS ORDERED: (Lantus) Insulin Glargine, Recombinant SC SCH (22:00)
[2017-10-22] MEDS: guaiFENesin-Codeine 100-10mg/5ml Syrup (10ml) UD PO PRN ×2 (00:29→08:46)
[2017-10-22 00:32] VITALS: O2SAT 97
[2017-10-22 07:11] LABS: BASO % 0.7 % (0.0-2.0); EOS # 0.1 K/uL (0.0-0.7); EOS % 1.1 % (0.0-4.0); LYMPH # 1.3 K/uL (1.0-4.3); LYMPH % 28.6 % (20.0-40.0); MEAN CORPUSCULAR HGB CONC 34.1 g/dL (33.0-37.0); MEAN PLATELET VOLUME 9.6 fL (7.2-11.7); MONO # 0.7 K/uL (0.0-0.8); MONO % 14.2 % (0.0-10.0); NEUT # 2.6 K/uL (1.8-7.0); NEUT % 55.4 % (50.0-75.0); NRBC % 0.1 % (0.0-2.0); RBC 4.33 Mil/uL (4.40-5.90); RED CELL DISTRIBUTION WIDTH 13.9 % (11.5-14.5); WHITE BLOOD COUNT 4.7 K/uL (4.8-10.8)
[2017-10-22] MEDS: Sodium Chloride 0.9% 1,000 ML IV SCH ×2 (07:18→10:27)
[2017-10-22 07:56] LABS: ALB/GLOB RATIO 1.1 (1.0-2.1); ALBUMIN 3.4 g/dL (3.5-5.0); ALT/SGPT 56 U/L (21-72); AST/SGOT 39 U/L (17-59); BLOOD UREA NITROGEN 11 mg/dL (9-20); CALCIUM 8.2 mg/dl (8.6-10.4); GFR AFRICAN-AMERICAN > 60; GFR NON-AFRICAN AMERICAN > 60
[2017-10-22] MEDS: (Novolin R) Insulin Human Regular 100 units/ml vial SC SCH ×2 (08:43→13:57)
[2017-10-22] MEDS ORDERED: (Novolin R) Insulin Human Regular 100 units/ml vial SC SCH (09:00)
[2017-10-22] MEDS: Enoxaparin 40 mg Syringe SC SCH (10:25)
[2017-10-22] MEDS: Pantoprazole 40 mg EC Tab PO SCH (10:25)
--- NOTE | 2017-10-22 11:41 | US ---
HISTORY: ABD PAIN COMPARISON: CT abdomen and pelvis with IV contrast performed 08/13/17 TECHNIQUE: Sonographic evaluation of the abdomen. FINDINGS: LIVER: Measures 18.0 cm in sagittal dimension and appears unremarkable. No focal hepatic mass identified. The main portal vein appears patent with normal directional flow. No intrahepatic bile duct dilatation. GALLBLADDER: No gallstones. No gallbladder wall thickening. Negative sonographic Ellison's sign as assessed by the economic research assistant. COMMON BILE DUCT: Measures 5 mm. PANCREAS: Not well visualized. RIGHT KIDNEY: Measures 11.1 x 4.3 x 5.9 cm. No obstructing calculus or hydronephrosis identified. LEFT KIDNEY: Measures 11.4 x 5.5 x 5.1 cm. No obstructing calculus or hydronephrosis identified. SPLEEN: Measures approximately 11.0 cm. AORTA: Limited views appear unremarkable. IVC: Limited views appear unremarkable. OTHER FINDINGS: None. IMPRESSION: Unremarkable abdominal sonogram with findings as above.
[2017-10-22 14:01] VITALS: BP 103/72; PULSE 83; RESP 18; TEMP 97.7
--- NOTE | 2017-10-22 14:46 | CP.PCM.DIS ---
Provider - Provider Date of Admission: 10/20/17 01:11 Attending physician: Teddy Sandoval Jr, MD Primary care physician: Lori Consults: Endocrinology - Dr. Moon Time Spent in preparation of Discharge (in minutes): 35 Diagnosis - Discharge Diagnosis (1) DM I (diabetes mellitus, type I), uncontrolled Status: Chronic Hospital Course - Lab Results Lab Results: Most Recent Lab Values WBC 4.7 K/uL (4.8-10.8) L 10/22/17 07:04 RBC 4.33 Mil/uL (4.40-5.90) L 10/22/17 07:04 Hgb 13.0 g/dL (12.0-18.0) 10/22/17 07:04 Hct 38.1 % (35.0-51.0) 10/22/17 07:04 MCV 88.0 fL (80.0-94.0) 10/22/17 07:04 MCH 30.0 pg (27.0-31.0) 10/22/17 07:04 MCHC 34.1 g/dL (33.0-37.0) 10/22/17 07:04 RDW 13.9 % (11.5-14.5) 10/22/17 07:04 Plt Count 210 K/uL (130-400) 10/22/17 07:04 MPV 9.6 fL (7.2-11.7) 10/22/17 07:04 Neut % (Auto) 55.4 % (50.0-75.0) 10/22/17 07:04 Lymph % (Auto) 28.6 % (20.0-40.0) 10/22/17 07:04 [place] % (Auto) 14.2 % (0.0-10.0) H 10/22/17 07:04 Eos % (Auto) 1.1 % (0.0-4.0) 10/22/17 07:04 Baso % (Auto) 0.7 % (0.0-2.0) 10/22/17 07:04 Neut # (Auto) 2.6 K/uL (1.8-7.0) 10/22/17 07:04 Lymph # (Auto) 1.3 K/uL (1.0-4.3) 10/22/17 07:04 [place] # (Auto) 0.7 K/uL (0.0-0.8) 10/22/17 07:04 Eos # (Auto) 0.1 K/uL (0.0-0.7) 10/22/17 07:04 Baso # (Auto) 0.0 K/uL (0.0-0.2) 10/22/17 07:04 PT 11.0 SECONDS (9.7-12.2) 10/20/17 00: INR 1.0 10/20/17 00:21 APTT 27 SECONDS (21-34) 10/20/17 00:21 pO2 40 mm/Hg (30-55) 10/20/17 00:20 VBG pH 7.29 (7.32-7.43) L 10/20/17 00:20 VBG pCO2 54 mmHg (40-60) 10/20/17 00:20 VBG HCO3 23.0 mmol/L 10/20/17 00:20 VBG Total CO2 27.7 mmol/L (22-28) 10/20/17 00:20 VBG O2 Sat (Calc) 84.0 % (40-65) H 10/20/17 00:20 VBG Base Excess -1.4 mmol/L (0.0-2.0) L 10/20/17 00:20 VBG Potassium 4.3 mmol/L (3.6-5.2) 10/20/17 00:20 Sodium 136.0 mmol/l (132-148) 10/20/17 00:20 Chloride 94.0 mmol/L (98-107) L 10/20/17 00:20 Glucose > 750 mg/dl (75-110) H* D 10/20/17 00:20 Lactate 3.9 mmol/L (0.7-2.1) H 10/20/17 00:20 Crit Value Called To Ramonita diop/rn 10/20/17 00:20 Crit Value Called By Omari gilmore/rt 10/20/17 00:20 Crit Value Read Back Y 10/20/17 00:20 Blood Gas Notified Time 30 10/20/17 00:20 Sodium 137 mmol/L (132-148) 10/22/17 07:04 Potassium 3.9 mmol/L (3.6-5.2) 10/22/17 07:04 Chloride 100 mmol/L (98-107) 10/22/17 07:04 Carbon Dioxide 24 mmol/L (22-30) 10/22/17 07:04 Anion Gap 16 (10-20) 10/22/17 07:04 BUN 11 mg/dL (9-20) 10/22/17 07:04 Creatinine 0.5 mg/dL (0.8-1.5) L 10/22/17 07:04 Est GFR ( Amer) > 60 10/22/17 07:04 Est GFR (Non-Af Amer) > 60 10/22/17 07:04 POC Glucose (mg/dL) 183 mg/dL (65-110) H 10/22/17 05:00 Random Glucose 218 mg/dL (75-110) H 10/22/17 07:04 Calcium 8.2 mg/dl (8.6-10.4) L 10/22/17 07:04 Phosphorus 3.7 mg/dL (2.5-4.5) 10/22/17 07:04 Magnesium 2.0 mg/dL (1.6-2.3) 10/22/17 07:04 Total Bilirubin 0.3 mg/dL (0.2-1.3) 10/22/17 07:04 AST 39 U/L (17-59) 10/22/17 07:04 ALT 56 U/L (21-72) 10/22/17 07:04 Alkaline Phosphatase 98 U/L (38-126) 10/22/17 07:04 Total Creatine Kinase 34 U/L (55-170) L 10/20/17 12:59 CK-MB (Mass) 0.77 ng/mL (0.0-3.38) 10/20/17 12:59 Troponin I < 0.0120 ng/mL (0.00-0.120) 10/20/17 12:59 Total Protein 6.5 g/dL (6.3-8.3) 10/22/17 07:04 Albumin 3.4 g/dL (3.5-5.0) L 10/22/17 07:04 Globulin 3.1 gm/dL (2.2-3.9) 10/22/17 07:04 Albumin/Globulin Ratio 1.1 (1.0-2.1) 10/22/17 07:04 Venous Blood Potassium 4.3 mmol/L (3.6-5.2) 10/20/17 00:20 Urine Color Colorless (YELLOW) 10/20/17 00:21 Urine Clarity Clear (Clear) 10/20/17 00:21 Urine pH 6.0 (5.0-8.0) 10/20/17 00:21 Ur Specific [place] 1.029 (1.003-1.030) 10/20/17 00:21 Urine Protein Negative mg/dL (NEGATIVE) 10/20/17 00:21 Urine Glucose (UA) 3+ mg/dL (Normal) H 10/20/17 00:21 Urine Ketones Negative mg/dL (NEGATIVE) 10/20/17 00:21 Urine Blood Negative (NEGATIVE) 10/20/17 00:21 Urine Nitrate Negative (NEGATIVE) 10/20/17 00:21 Urine Bilirubin Negative (NEGATIVE) 10/20/17 00:21 Urine Urobilinogen Normal mg/dL (0.2-1.0) 10/20/17 00:21 Ur Leukocyte Esterase Neg Shelly/uL (Negative) 10/20/17 00:21 Serum Ketones Negative (NEGATIVE) 10/20/17 00:21 Influenza Typ A,B (EIA) Negative for flu a/b (NEGATIVE) 10/20/17 02:04 - Hospital Course Hospital Course: Upon hospital admission: Mr Gonzalez is a 26 year old male with a PMHx of IDDM (Type 1), Self-reported Crohn's disease, Gastritis, Substance Abuse Disorder, Bipolar, Schizophrenia who presented to [facility] ER because he ran out of his insulin today. He normally takes 20u of Humalog 3x a day. He says he attempted to reach his PMD, Dr Barnett but was unable to do so. He stated he began to feel dizzy around noon-time. He also endorses sore throat and dry cough that has been ongoing for the past 1 week, he says he has trouble breathing. He states he felt a subjective fever 2 days ago. He also complains of right sided abdominal pain. He denies chest pain, dysuria, diarrhea, bleeding. During hospital course, the patient was evaluated and treated for the following : (1) Hyperglycemic crisis in diabetes mellitus; Consult was placed to Endocrinology Dr. Moon who adjusted the patients medications. Random glucose on admission: 1195, but Serum ketones NEGATIVE. HgbA1C 08/31: 14.1. His Lantus was increased to 22u during this hospital stay. See discharge instructions for full instructions given to patient. (2) Elevated LFTs - chronic. Old CT abd/ pelvis w/ IV contrast from 2016 showed enlarged liver with mild fatty infiltration. Patient refused to be NPO for abd US or abd CT on this admission. Abd US was obtained 10/22/17 showing no acute findings. Pt believes he has crohns dz, but would not elaborate. The patient did well during this admission, responded well to treatment, and was deemed stable for discharge. Upon hospital discharge, the patient was provided with the following instructions: Patient is stable for discharge per Dr. Sandoval. Patient should resume all medications as outlined in this document. Additionally, patient should take the new medications listed below (scripts provided). 1. Please make an appointment and follow up with your Primary Doctor within one week of discharge. 2. Please follow up the results of your abdominal ultrasound with your PMD. It was performed at [facility] on 10/22/17. Patient should return to ED immediately if symptoms return or worsen. Instructions discussed with patient who understood and agreed. Newly prescribed medications: Lantus 22u SC HS (at night), one month supply Novlin R 20u SC TIDCC (three times a day with meals), one month supply Robitussin DM 10ml PO q6H PRN cough, (take for 5 days as needed). This is a summary of the patient's hospital admission, see chart for comprehensive detail. - Date & Time of H&P Date of H&P: 10/20/17 Time of H&P: 01:33 Discharge Exam - Additional Findings Additional findings: - Constitutional Appears: Unkempt, Chronically Ill - Head Exam Head Exam: ATRAUMATIC, NORMAL INSPECTION - Eye Exam Eye Exam: EOMI Pupil Exam: PERRL - ENT Exam ENT Exam: Mucous Membranes Moist - Neck Exam Neck exam: Positive for: Normal Inspection. Negative for: Lymphadenopathy, Tenderness - Respiratory Exam Respiratory Exam: Clear to Auscultation Bilateral, NORMAL BREATHING PATTERN. absent: Rales, Rhonchi, Wheezes - Cardiovascular Exam Cardiovascular Exam: REGULAR RHYTHM, +S1, +S2. absent: JVD, Systolic Murmur - GI/Abdominal Exam GI & Abdominal Exam: Normal Bowel Sounds, Soft, Tenderness (RUQ, mild -> improved). absent: Distended, Firm, Guarding, Rebound, Rigid - Extremities Exam Extremities exam: Positive for: normal capillary refill, normal inspection, pedal pulses present. Negative for: pedal edema, calf tenderness - Back Exam Back exam: NORMAL INSPECTION. absent: CVA tenderness (L), CVA tenderness (R) - Neurological Exam Neurological exam: Alert, CN II-XII Intact, Oriented x3 - Skin Skin Exam: Intact, Normal Color, Warm Discharge Plan - Discharge Medications Prescriptions: guaiFENesin/Dextromethorphan [guaiFENesin-DM] 10 ml PO Q6H PRN 5 Days udc PRN Reason: Cough Insulin Glargine, Recombina [Lantus] 22 unit SC HS 30 Days unit Insulin Human Regular [Novolin R] 20 unit SC TIDPC 30 Days unit - Follow Up Plan Condition: SERIOUS Disposition: HOME/ ROUTINE Instructions: Hyperglycemia, Adult (DC), Blood Glucose Monitoring, The ABCs of Diabetes Additional Instructions: Patient is stable for discharge per Dr. Sandoval. Patient should resume all medications as outlined in this document. Additionally, patient should take the new medications listed below (scripts provided). 1. Please make an appointment and follow up with your Primary Doctor within one week of discharge. 2. Please follow up the results of your abdominal ultrasound with your PMD. It was performed at [facility] on 10/22/17. Patient should return to ED immediately if symptoms return or worsen. Instructions discussed with patient who understood and agreed. Newly prescribed medications: Lantus 22u SC HS (at night), one month supply Novlin R 20u SC TIDCC (three times a day with meals), one month supply Robitussin DM 10ml PO q6H PRN cough, (take for 5 days as needed). Referrals: Fam Moon MD [Staff Provider] - Teddy Sandoval Jr., MD [Medical Doctor] -
--- NOTE | 2017-10-22 23:05 | CARD ---
APPROVED REPORT EKG Measurement Heart [id number] <Conclusion> Normal sinus rhythm Right atrial enlargement T wave abnormality, consider lateral ischemia Abnormal ECG
--- NOTE | 2017-10-23 16:39 | CARD ---
APPROVED REPORT EKG Measurement Heart [id number] <Conclusion> Normal sinus rhythm Nonspecific T wave abnormality Abnormal ECG
== END 2017-10-22 12:30 | disposition home or self-care (01) | DRG 295 ==
LOC: C.ER 23:42 → C.3T 10-20 01:11
PROVIDERS: ADMIT Internal Medicine; ATTEND Internal Medicine
DX: E10.649 Type 1 diabetes mellitus with hypoglycemia without coma (principal); F20.9 Schizophrenia, unspecified; E86.0 Dehydration; F31.9 Bipolar disorder, unspecified; G62.9 Polyneuropathy, unspecified; H91.90 Unspecified hearing loss, unspecified ear; H54.8 Legal blindness, as defined in USA; K31.84 Gastroparesis; Z79.4 Long term (current) use of insulin; Z87.891 Personal history of nicotine dependence; K29.70 Gastritis, unspecified, without bleeding; Z68.1 Body mass index [BMI] 19.9 or less, adult

== ENCOUNTER 2017-11-26 15:43 | Inpatient (IN) | payer MEDICAID ==
[2017-11-26 15:43] VITALS: BMI 13.6
[2017-11-26] MEDS ORDERED: Sodium Chloride 0.9% 1,000 ML IV ONE ×2 (16:13→17:00)
[2017-11-26 16:43] LABS: BASO # 0.1 K/uL (0.0-0.2); BASO % 0.6 % (0.0-2.0); EOS % 0.1 % (0.0-4.0); LYMPH % 7.1 % (20.0-40.0); MEAN CORPUSCULAR HEMOGLOBIN 29.5 pg (27.0-31.0); MEAN CORPUSCULAR HGB CONC 32.4 g/dL (33.0-37.0); MEAN PLATELET VOLUME 9.8 fL (7.2-11.7); MONO # 1.1 K/uL (0.0-0.8); MONO % 7.9 % (0.0-10.0); NEUT # 12.1 K/uL (1.8-7.0); NEUT % 84.3 % (50.0-75.0); PLATELET COUNT 286 K/uL (130-400); RBC 5.09 Mil/uL (4.40-5.90); RED CELL DISTRIBUTION WIDTH 14.4 % (11.5-14.5)
[2017-11-26 16:49] LABS: MEAN CELL VOLUME 90.9 fL (80.0-94.0); WHITE BLOOD COUNT 14.3 K/uL (4.8-10.8)
[2017-11-26] MEDS ORDERED: (Novolin R) Insulin Human Regular 100 units/ml vial IV ONE (16:50)
[2017-11-26 16:55] LABS: VENOUS BLOOD GAS BASE EXCESS -15.5 mmol/L (0.0-2.0); VENOUS BLOOD GAS PCO2 31 mmHg (40-60); VENOUS BLOOD GAS PO2 29 mm/Hg (30-55); VENOUS BLOOD PH 7.18 (7.32-7.43)
[2017-11-26 17:06] LABS: BANDS 4 % (0-2); LYMPHOCYTE 10 % (20-40); MONOCYTE 6 % (0-10); NEUTROPHIL 80 % (50-75); TOTAL CELLS COUNTED 100
[2017-11-26 17:07] LABS: ANISOCYTOSIS SLIGHT; PLATELET ESTIMATE NORMAL (NORMAL)
[2017-11-26 17:08] LABS: MICROCYTOSIS SLIGHT
[2017-11-26 17:09] LABS: LARGE PLATELETS PRESENT
[2017-11-26] MEDS ORDERED: (Novolin R) Insulin Human Regular 100 units/ml vial ONE (17:18)
[2017-11-26] MEDS ORDERED: Insulin Human Regular 100 UNIT in Sodium Chloride 0.9% 99 ML IV STA ×2 (17:47→18:54)
[2017-11-26 17:54] LABS: ALB/GLOB RATIO 1.2 (1.0-2.1); ALBUMIN 4.5 g/dL (3.5-5.0); ALT/SGPT 37 U/L (21-72); AST/SGOT 26 U/L (17-59); BLOOD UREA NITROGEN 8 mg/dL (9-20); GFR AFRICAN-AMERICAN > 60; GFR NON-AFRICAN AMERICAN > 60
--- NOTE | 2017-11-26 17:54 | C.PDOC ---
History Of Present Illness 27 year old male, with PMHx of Crohn's disease, diabetes, and schizophrenia, presents to ED for evaluation of abdominal pain, and diarrhea described as dark red and black stool. Pt also reports an episode of vomiting last night, no episodes of vomiting today. (+) SOB. Pt states he is complaint with his insulin , states he takes Humalog three times a day, and Lantus at night. Notes he did not have his glucometer for the past 2 days. He admits to taking Humalog this morning. Also, reports having history of cyst and he feels like he is getting another cyst in the perianal region. Denies chest pain, dysuria, fever, headache , or visual changes. Time Seen by Provider: 11/26/17 16:11 Chief Complaint (Nursing): Abdominal Pain History Per: Patient History/Exam Limitations: no limitations Onset/Duration Of Symptoms: Days Current Symptoms Are (Timing): Still Present Quality Of Discomfort: "Pain" Associated Symptoms: Vomiting, Diarrhea. denies: Hematemesis, Lightheadedness Modifying Factors: None Recent travel outside of the [place]: No Additional History Per: Patient Past Medical History Reviewed: Historical Data, Nursing Documentation, Vital Signs Vital Signs: Last Vital Signs Temp 97.8 F 11/28/17 00:01 Pulse 92 H 11/28/17 00:01 Resp 20 11/28/17 00:01 BP 96/60 L 11/28/17 00:01 Pulse Ox 98 11/28/17 03:54 - Medical History PMH: Anxiety, Bipolar Disorder, Crohn's Disease, Depression, Diabetes (Type 1), HTN, Schizophrenia Denies: HIV, Chronic Kidney Disease - [facility] (07/21/17) (07/21/17) Family History: States: Unknown Family Hx - Social History Hx Tobacco Use: No Hx Alcohol Use: No Hx Substance Use: Yes (smokes marijuana occasionally for chronic pain) - Immunization History Hx Tetanus Toxoid Vaccination: Yes Hx Influenza Vaccination: Yes Hx Pneumococcal Vaccination: Yes Review Of Systems Except As Marked, All Systems Reviewed And Found Negative. Constitutional: Negative for: Fever, Chills Cardiovascular: Negative for: Chest Pain Respiratory: Negative for: Shortness of Breath Gastrointestinal: Positive for: Vomiting, Abdominal Pain, Diarrhea. Negative for: Hematemesis Genitourinary: Negative for: Dysuria, Frequency, Hematuria Musculoskeletal: Negative for: Back Pain Neurological: Negative for: Headache, Dizziness Physical Exam - Physical Exam Appears: Non-toxic, Chronically Ill, Other (thin) Skin: Warm, Dry, Other (mild induration to gluteal cleft, no fluctuance or erythema) Head: Atraumatic, Normacephalic Eye(s): bilateral: Normal Inspection, EOMI Nose: Normal Oral Mucosa: Dry Neck: Normal ROM, Supple Chest: Symmetrical Cardiovascular: Rhythm Regular Respiratory: Normal Breath Sounds, No Rales, No Rhonchi, No Wheezing Gastrointestinal/Abdominal: Soft, No Tenderness, No Guarding, No Rebound Rectal: Other (no stool obtained) Back: No CVA Tenderness Extremity: Normal ROM Neurological/Psych: Oriented x3, Normal Speech ED Course And Treatment - Laboratory Results Result Diagrams: 11/27/17 05:56 11/27/17 05:56 O2 Sat by Pulse Oximetry: 98 (RA) Pulse Ox Interpretation: Normal Progress Note: Blood work, urinalysis ordered and reviewed. Pt was given IV fluids, Toradol, and Insulin. CAse discussed with Dr Weeks, agreed upon plan and treatment. Case discussed with Dr. Sloan who accepts patient to ICU. Case discussed with hospitalist who agrees upon plan and admission. Disposition - Disposition Disposition: HOSPITALIZED Disposition Time: 18:00 Condition: STABLE - Clinical Impression Clinical Impression: Rectal pain, DKA (diabetic ketoacidoses) - PA / OPERATING ROOM TECHNOLOGIST / Resident Statement MD/DO has reviewed & agrees with the documentation as recorded. - Scribe Statement The provider has reviewed the documentation as recorded by the Otisibe Shari Romero All medical record entries made by the Otisibsonia were at my direction and personally dictated by me. I have reviewed the chart and agree that the record accurately reflects my personal performance of the history, physical exam, medical decision making, and the department course for this patient. I have also personally directed, reviewed, and agree with the discharge instructions and disposition.
[2017-11-26 19:10] LABS: SQUAMOUS EPITHIAL < 1 /hpf (0-5); URINE BILIRUBIN NEGATIVE (NEGATIVE); URINE BLOOD NEGATIVE (NEGATIVE); URINE CLARITY Clear (Clear); URINE COLOR Colorless (YELLOW); URINE GLUCOSE (UA) 3+ mg/dL (Normal); URINE LEUKOCYTE ESTERASE NEG Leu/uL (Negative); URINE PROTEIN NEGATIVE (NEGATIVE); URINE UROBILINOGEN NORMAL mg/dL (0.2-1.0)
--- NOTE | 2017-11-26 19:18 | CP.PCM.CON ---
History of Present Illness - History of Present Illness History of Present Illness: Chief complaint: Vomiting nausea History of present illness: 27-year-old male with a history of diabetes, Crohn's disease, came to the emergency room today with a complaint of sudden onset of shortness of breath, and also started having multiple episodes of vomiting, abdominal pain, and also difficulty in urination. The patient claims that he is taking the insulin on a daily basis. But he is having difficulty in eating, and having some pain. Frequent diarrhea noted, secondary to Crohn's disease. Patient is being seen by special education tutor, but currently not on any medication. His main medications insulin for his diabetes. He did not have any fever, no chills, but complaining of swelling in the perianal region, patient had a cyst in the past, remote, now having again painful swelling in the back of the anal area Past medical history: Diabetes Crohn's disease, and a history of DKA in the past Allergies no known drug allergy Personal history: Denies smoking, but he uses marijuana, denies any alcohol Family history significant for diabetes Review of systems: Patient currently having no headache, no visual symptoms, comparing of abdominal pain, shortness of breath no chest pain now. Currently feeling better. Difficulty in urination. Leg swelling negative On examination: Vital signs stable Chest bilateral good air entry, regular heart sound, nontender abdomen, no pedal edema Blood pressure slightly low side now. Patient is currently on insulin drip Labs reviewed Labs showing evidence of medical acidosis, and metabolic alkalosis, with respiratory congestion and mild respiratory acidosis. Assessment/recommendation: 25-year-old male admitted with possible DKA, secondary to possible abscess in the perianal region, secondary to Crohn's colitis. Will start the patient on antibiotic, insulin drip, IV fluid, GI evaluation and surgical evaluation. Will follow the patient. 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) - RENAL Hx Chronic Kidney Disease: No - ENDOCRINE/METABOLIC Hx Endocrine Disorders: Yes Hx Diabetes Mellitus Type 1: Yes (insulin dependent) - HEMATOLOGICAL/ONCOLOGICAL Hx Human Immunodeficiency Virus (HIV): No - INTEGUMENTARY Hx Dermatological Problems: No - MUSCULOSKELETAL/RHEUMATOLOGICAL Hx Musculoskeletal Disorders: No Hx Falls: No - GASTROINTESTINAL Hx Crohn's Disease: Yes - GENITOURINARY/GYNECOLOGICAL Hx Genitourinary Disorders: No - PSYCHIATRIC Hx Anxiety: Yes Hx Bipolar Disorder: Yes Hx Depression: Yes Hx Schizophrenia: Yes Hx Substance Use: Yes (smokes marijuana occasionally for chronic pain) - SURGICAL HISTORY Hx Surgeries: Yes Other/Comment: wired Jaw - ANESTHESIA Hx Anesthesia: Yes Hx Anesthesia Reactions: No Hx Malignant Hyperthermia: No Meds Allergies/Adverse Reactions: Allergies Allergy/AdvReac Type Severity Reaction Status Date / Time No Known Allergies Allergy Verified 11/26/17 16:08 - Medications Medications: Current Medications Sodium Chloride (Sodium Chloride 0.9%) 1,000 mls @ 250 mls/hr IV .Q4H JOHANA Stop: 11/26/17 23:01 Insulin Human Regular 100 unit (/ Sodium Chloride) 100 mls @ 4 mls/hr IV .Q24H STA; 4 UNIT/HR PRN Reason: Protocol Stop: 11/27/17 17:46 Pantoprazole Sodium (Protonix Inj) 40 mg IVP DAILY JOHANA Results - Vital Signs Recent Vital Signs: Last Vital Signs Temp 98.6 F 11/26/17 16:04 Pulse 92 H 11/26/17 19:07 Resp 20 11/26/17 19:07 BP 110/59 L 11/26/17 19:07 Pulse Ox 100 11/26/17 19:07 - Labs Result Diagrams: 11/26/17 16:39 11/26/17 17:29 Labs: Laboratory Results - last 24 hr 11/26/17 11/26/17 11/26/17 15:49 16:39 16:40 WBC 14.3 H D RBC 5.09 Hgb 15.0 D Hct 46.2 MCV 90.9 D MCH 29.5 MCHC 32.4 L RDW 14.4 Plt Count 286 MPV 9.8 Neut % (Auto) 84.3 H Lymph % (Auto) 7.1 L [place] % (Auto) 7.9 Eos % (Auto) 0.1 Baso % (Auto) 0.6 Neut # (Auto) 12.1 H Lymph # (Auto) 1.0 [place] # (Auto) 1.1 H Eos # (Auto) 0.0 Baso # (Auto) 0.1 Neutrophils % (Manual) 80 H Band Neutrophils % 4 H Lymphocytes % (Manual) 10 L Monocytes % (Manual) 6 Platelet Estimate Normal Large Platelets Present Anisocytosis (manual) Slight Microcytosis (manual) Slight Macrocytosis (manual) Slight pO2 29 L VBG pH 7.18 L* VBG pCO2 31 L VBG HCO3 11.2 VBG Total CO2 12.6 L VBG O2 Sat (Calc) 61.9 VBG Base Excess -15.5 L VBG Potassium 4.2 Sodium 134.0 Chloride 90.0 L Glucose 560 H* D Lactate 3.1 H Crit Value Called To Valeria storm Crit Value Called By Luzma hand scraper Crit Value Read Back Y Blood Gas Notified Time 1655 Potassium Carbon Dioxide Anion Gap BUN Creatinine Est GFR ( Amer) Est GFR (Non-Af Amer) POC Glucose (mg/dL) 490 H* Random Glucose Calcium Total Bilirubin AST ALT Alkaline Phosphatase Total Protein Albumin Globulin Albumin/Globulin Ratio Venous Blood Potassium 4.2 Urine Color Urine Clarity Urine pH Ur Specific [place] Urine Protein Urine Glucose (UA) Urine Ketones Urine Blood Urine Nitrate Urine Bilirubin Urine Urobilinogen Ur Leukocyte Esterase Urine WBC (Auto) Urine RBC (Auto) Ur Squamous Epith Cells Stool Occult Blood Serum Ketones 11/26/17 11/26/17 11/26/17 16:51 17:29 18:08 WBC RBC Hgb Hct MCV MCH MCHC RDW Plt Count MPV Neut % (Auto) Lymph % (Auto) [place] % (Auto) Eos % (Auto) Baso % (Auto) Neut # (Auto) Lymph # (Auto) [place] # (Auto) Eos # (Auto) Baso # (Auto) Neutrophils % (Manual) Band Neutrophils % Lymphocytes % (Manual) Monocytes % (Manual) Platelet Estimate Large Platelets Anisocytosis (manual) Microcytosis (manual) Macrocytosis (manual) pO2 VBG pH VBG pCO2 VBG HCO3 VBG Total CO2 VBG O2 Sat (Calc) VBG Base Excess VBG Potassium Sodium 134 Chloride 92 L Glucose Lactate Crit Value Called To Crit Value Called By Crit Value Read Back Blood Gas Notified Time Potassium 5.0 Carbon Dioxide 11 L* D Anion Gap 37 H BUN 8 L Creatinine 0.7 L Est GFR ( Amer) > 60 Est GFR (Non-Af Amer) > 60 POC Glucose (mg/dL) 409 H* Random Glucose 557 H* D Calcium 9.0 Total Bilirubin 1.0 AST 26 ALT 37 Alkaline Phosphatase 175 H D Total Protein 8.3 Albumin 4.5 Globulin 3.8 Albumin/Globulin Ratio 1.2 Venous Blood Potassium Urine Color Urine Clarity Urine pH Ur Specific [place] Urine Protein Urine Glucose (UA) Urine Ketones Urine Blood Urine Nitrate Urine Bilirubin Urine Urobilinogen Ur Leukocyte Esterase Urine WBC (Auto) Urine RBC (Auto) Ur Squamous Epith Cells Stool Occult Blood Negative Serum Ketones Moderate 11/26/17 18:53 WBC RBC Hgb Hct MCV MCH MCHC RDW Plt Count MPV Neut % (Auto) Lymph % (Auto) [place] % (Auto) Eos % (Auto) Baso % (Auto) Neut # (Auto) Lymph # (Auto) [place] # (Auto) Eos # (Auto) Baso # (Auto) Neutrophils % (Manual) Band Neutrophils % Lymphocytes % (Manual) Monocytes % (Manual) Platelet Estimate Large Platelets Anisocytosis (manual) Microcytosis (manual) Macrocytosis (manual) pO2 VBG pH VBG pCO2 VBG HCO3 VBG Total CO2 VBG O2 Sat (Calc) VBG Base Excess VBG Potassium Sodium Chloride Glucose Lactate Crit Value Called To Crit Value Called By Crit Value Read Back Blood Gas Notified Time Potassium Carbon Dioxide Anion Gap BUN Creatinine Est GFR ( Amer) Est GFR (Non-Af Amer) POC Glucose (mg/dL) Random Glucose Calcium Total Bilirubin AST ALT Alkaline Phosphatase Total Protein Albumin Globulin Albumin/Globulin Ratio Venous Blood Potassium Urine Color Colorless Urine Clarity Clear Urine pH 5.0 Ur Specific [place] 1.027 Urine Protein Negative Urine Glucose (UA) 3+ H Urine Ketones 2+ H Urine Blood Negative Urine Nitrate Negative Urine Bilirubin Negative Urine Urobilinogen Normal Ur Leukocyte Esterase Neg Urine WBC (Auto) < 1 Urine RBC (Auto) < 1 Ur Squamous Epith Cells < 1 Stool Occult Blood Serum Ketones
--- NOTE | 2017-11-26 19:27 | CP.PCM.HP ---
<Devin Blanton - Last Filed: 11/27/17 05:41> History of Present Illness - History of Present Illness History of Present Illness: 27 year old male with past medical history of Type I diabetes, Crohn's disease, Marijuana abuse, bipolar disorder, and depression present to the hospital today complaining of shortness of breath and dark red diarrhea. Patient states his symptoms started suddenly yesterday when he woke up in the morning. He states the shortness of breath does not improve or worsen with positional changes. He denies of having coughs or chest pain. Patient reports to have frequent diarrhea since he was diagnosed with Crohn's disease at age 20. Patient state he goes about 5-10 times daily in average, depending on his oral intake. Patient 's dark red diarrhea started 2 days ago, shortly after having some steak. Patient describes his diarrhea is dark red and more solid than usual. Patient also complains of pain in his perianal region. Patient states he has been compliant with his insulins daily. Patient further denies fever, chills, or headache. PMD: Dr. Barnett, GI: Dr. Veloz PMHx: type 1 DM, Crohn's, bipolar, depression PSHx: endoscopy x2, colonoscopy x2 Family Hx: no familiy history of IBD/GI cancer SHx: smokers marijuana and cocaine, but denies etoh Present on Admission - Present on Admission Any Indicators Present on Admission: No Review of Systems - Constitutional Constitutional: As Per HPI. absent: Chills, Fever - EENT Eyes: As Per HPI. absent: Blind Spots, Blurred Vision, Change in Vision Ears: As Per HPI. absent: Dizziness Nose/Mouth/Throat: As Per HPI. absent: Epistaxis, Nasal Obstruction, Nasal Trauma - Cardiovascular Cardiovascular: As Per HPI. absent: Chest Pain, Chest Pain at Rest, Chest Pain with Activity - Respiratory Respiratory: As Per HPI, Dyspnea. absent: Wheezing - Gastrointestinal Gastrointestinal: As Per HPI, Abdominal Pain, Diarrhea, Nausea, Vomiting - Genitourinary Genitourinary: As Per HPI, Dysuria - Reproductive: Male Reproductive:Male: As Per HPI - Musculoskeletal Musculoskeletal: As Per HPI. absent: Numbness, Tingling - Integumentary Integumentary: As Per HPI. absent: Lesions - Neurological Neurological: As Per HPI. absent: Dizziness, Loss of Vision - Psychiatric Psychiatric: As Per HPI. 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) - RENAL Hx Chronic Kidney Disease: No - ENDOCRINE/METABOLIC Hx Endocrine Disorders: Yes Hx Diabetes Mellitus Type 1: Yes (insulin dependent) - HEMATOLOGICAL/ONCOLOGICAL Hx Human Immunodeficiency Virus (HIV): No - INTEGUMENTARY Hx Dermatological Problems: No - MUSCULOSKELETAL/RHEUMATOLOGICAL Hx Musculoskeletal Disorders: No Hx Falls: No - GASTROINTESTINAL Hx Crohn's Disease: Yes - GENITOURINARY/GYNECOLOGICAL Hx Genitourinary Disorders: No - PSYCHIATRIC Hx Anxiety: Yes Hx Bipolar Disorder: Yes Hx Depression: Yes Hx Schizophrenia: Yes Hx Substance Use: Yes (smokes marijuana occasionally for chronic pain) - SURGICAL HISTORY Hx Surgeries: Yes Other/Comment: wired Jaw - ANESTHESIA Hx Anesthesia: Yes Hx Anesthesia Reactions: No Hx Malignant Hyperthermia: No Meds Allergies/Adverse Reactions: Allergies Allergy/AdvReac Type Severity Reaction Status Date / Time No Known Allergies Allergy Verified 11/26/17 16:08 Physical Exam - Constitutional Appears: Non-toxic, No Acute Distress, Cachectic, Chronically Ill - Head Exam Head Exam: ATRAUMATIC, NORMOCEPHALIC - Eye Exam Eye Exam: EOMI, Normal appearance - ENT Exam ENT Exam: Mucous Membranes Dry - Neck Exam Neck exam: Positive for: Normal Inspection - Respiratory Exam Respiratory Exam: Clear to Auscultation Bilateral, NORMAL BREATHING PATTERN. absent: Rhonchi, Wheezes, Respiratory Distress - Cardiovascular Exam Cardiovascular Exam: REGULAR RHYTHM, +S1, +S2 - GI/Abdominal Exam GI & Abdominal Exam: Normal Bowel Sounds, Soft. absent: Tenderness - Extremities Exam Extremities exam: Positive for: normal inspection - Neurological Exam Neurological exam: Alert, Oriented x3 - Psychiatric Exam Psychiatric exam: Normal Affect, Normal Mood - Skin Skin Exam: Dry, Warm Results - Vital Signs Recent Vital Signs: Last Vital Signs Temp 98.6 F 11/26/17 16:04 Pulse 92 H 11/26/17 19:07 Resp 20 11/26/17 19:07 BP 110/59 L 11/26/17 19:07 Pulse Ox 100 11/26/17 19:07 - Labs Result Diagrams: 11/26/17 16:39 11/27/17 01:39 Labs: Laboratory Results - last 24 hr 11/26/17 11/26/17 11/26/17 15:49 16:39 16:40 WBC 14.3 H D RBC 5.09 Hgb 15.0 D Hct 46.2 MCV 90.9 D MCH 29.5 MCHC 32.4 L RDW 14.4 Plt Count 286 MPV 9.8 Neut % (Auto) 84.3 H Lymph % (Auto) 7.1 L [place] % (Auto) 7.9 Eos % (Auto) 0.1 Baso % (Auto) 0.6 Neut # (Auto) 12.1 H Lymph # (Auto) 1.0 [place] # (Auto) 1.1 H Eos # (Auto) 0.0 Baso # (Auto) 0.1 Neutrophils % (Manual) 80 H Band Neutrophils % 4 H Lymphocytes % (Manual) 10 L Monocytes % (Manual) 6 Platelet Estimate Normal Large Platelets Present Anisocytosis (manual) Slight Microcytosis (manual) Slight Macrocytosis (manual) Slight pO2 29 L VBG pH 7.18 L* VBG pCO2 31 L VBG HCO3 11.2 VBG Total CO2 12.6 L VBG O2 Sat (Calc) 61.9 VBG Base Excess -15.5 L VBG Potassium 4.2 Sodium 134.0 Chloride 90.0 L Glucose 560 H* D Lactate 3.1 H Crit Value Called To Valeria storm Crit Value Called By Luzma inspector golf ball Crit Value Read Back Y Blood Gas Notified Time 1653 Potassium Carbon Dioxide Anion Gap BUN Creatinine Est GFR ( Amer) Est GFR (Non-Af Amer) POC Glucose (mg/dL) 490 H* Random Glucose Calcium Total Bilirubin AST ALT Alkaline Phosphatase Total Protein Albumin Globulin Albumin/Globulin Ratio Venous Blood Potassium 4.2 Urine Color Urine Clarity Urine pH Ur Specific [place] Urine Protein Urine Glucose (UA) Urine Ketones Urine Blood Urine Nitrate Urine Bilirubin Urine Urobilinogen Ur Leukocyte Esterase Urine WBC (Auto) Urine RBC (Auto) Ur Squamous Epith Cells Stool Occult Blood Serum Ketones 11/26/17 11/26/17 11/26/17 16:51 17:29 18:08 WBC RBC Hgb Hct MCV MCH MCHC RDW Plt Count MPV Neut % (Auto) Lymph % (Auto) [place] % (Auto) Eos % (Auto) Baso % (Auto) Neut # (Auto) Lymph # (Auto) [place] # (Auto) Eos # (Auto) Baso # (Auto) Neutrophils % (Manual) Band Neutrophils % Lymphocytes % (Manual) Monocytes % (Manual) Platelet Estimate Large Platelets Anisocytosis (manual) Microcytosis (manual) Macrocytosis (manual) pO2 VBG pH VBG pCO2 VBG HCO3 VBG Total CO2 VBG O2 Sat (Calc) VBG Base Excess VBG Potassium Sodium 134 Chloride 92 L Glucose Lactate Crit Value Called To Crit Value Called By Crit Value Read Back Blood Gas Notified Time Potassium 5.0 Carbon Dioxide 11 L* D Anion Gap 37 H BUN 8 L Creatinine 0.7 L Est GFR ( Amer) > 60 Est GFR (Non-Af Amer) > 60 POC Glucose (mg/dL) 409 H* Random Glucose 557 H* D Calcium 9.0 Total Bilirubin 1.0 AST 26 ALT 37 Alkaline Phosphatase 175 H D Total Protein 8.3 Albumin 4.5 Globulin 3.8 Albumin/Globulin Ratio 1.2 Venous Blood Potassium Urine Color Urine Clarity Urine pH Ur Specific [place] Urine Protein Urine Glucose (UA) Urine Ketones Urine Blood Urine Nitrate Urine Bilirubin Urine Urobilinogen Ur Leukocyte Esterase Urine WBC (Auto) Urine RBC (Auto) Ur Squamous Epith Cells Stool Occult Blood Negative Serum Ketones Moderate 11/26/17 18:53 WBC RBC Hgb Hct MCV MCH MCHC RDW Plt Count MPV Neut % (Auto) Lymph % (Auto) [place] % (Auto) Eos % (Auto) Baso % (Auto) Neut # (Auto) Lymph # (Auto) [place] # (Auto) Eos # (Auto) Baso # (Auto) Neutrophils % (Manual) Band Neutrophils % Lymphocytes % (Manual) Monocytes % (Manual) Platelet Estimate Large Platelets Anisocytosis (manual) Microcytosis (manual) Macrocytosis (manual) pO2 VBG pH VBG pCO2 VBG HCO3 VBG Total CO2 VBG O2 Sat (Calc) VBG Base Excess VBG Potassium Sodium Chloride Glucose Lactate Crit Value Called To Crit Value Called By Crit Value Read Back Blood Gas Notified Time Potassium Carbon Dioxide Anion Gap BUN Creatinine Est GFR ( Amer) Est GFR (Non-Af Amer) POC Glucose (mg/dL) Random Glucose Calcium Total Bilirubin AST ALT Alkaline Phosphatase Total Protein Albumin Globulin Albumin/Globulin Ratio Venous Blood Potassium Urine Color Colorless Urine Clarity Clear Urine pH 5.0 Ur Specific [place] 1.027 Urine Protein Negative Urine Glucose (UA) 3+ H Urine Ketones 2+ H Urine Blood Negative Urine Nitrate Negative Urine Bilirubin Negative Urine Urobilinogen Normal Ur Leukocyte Esterase Neg Urine WBC (Auto) < 1 Urine RBC (Auto) < 1 Ur Squamous Epith Cells < 1 Stool Occult Blood Serum Ketones Assessment & Plan - Assessment and Plan (Free Text) Assessment: DKA -Management per ICU team -Anion gap 37, glucose 490 on admission -Patient did not check blood glucose in 2 days Perianal abscess -Surgery consulted, help appreciated History of Crohn's disease -Further outpatient workup by Dr. Veloz -Stool occult blood negative -Stool culture pending Depression -Resume Trazodone Bipolar disorder -Resume Seraquel Prophylactic measures -Protonix -SCD <Sharif Darden - Last Filed: 11/27/17 06:24> Results - Vital Signs Recent Vital Signs: Last Vital Signs Temp 98.8 F 11/27/17 04:00 Pulse 94 H 11/27/17 05:00 Resp 19 11/27/17 05:00 BP 102/61 11/27/17 03:55 Pulse Ox 99 11/27/17 04:10 - Labs Result Diagrams: 11/27/17 05:56 11/27/17 01:39 Labs: Laboratory Results - last 24 hr 11/26/17 11/26/17 11/26/17 15:49 16:39 16:40 WBC 14.3 H D RBC 5.09 Hgb 15.0 D Hct 46.2 MCV 90.9 D MCH 29.5 MCHC 32.4 L RDW 14.4 Plt Count 286 MPV 9.8 Neut % (Auto) 84.3 H Lymph % (Auto) 7.1 L [place] % (Auto) 7.9 Eos % (Auto) 0.1 Baso % (Auto) 0.6 Neut # (Auto) 12.1 H Lymph # (Auto) 1.0 [place] # (Auto) 1.1 H Eos # (Auto) 0.0 Baso # (Auto) 0.1 Neutrophils % (Manual) 80 H Band Neutrophils % 4 H Lymphocytes % (Manual) 10 L Monocytes % (Manual) 6 Platelet Estimate Normal Large Platelets Present Anisocytosis (manual) Slight Microcytosis (manual) Slight Macrocytosis (manual) Slight pO2 29 L VBG pH 7.18 L* VBG pCO2 31 L VBG HCO3 11.2 VBG Total CO2 12.6 L VBG O2 Sat (Calc) 61.9 VBG Base Excess -15.5 L VBG Potassium 4.2 Sodium 134.0 Chloride 90.0 L Glucose 560 H* D Lactate 3.1 H Crit Value Called To Valeria storm Crit Value Called By Luzma inspector golf ball Crit Value Read Back Y Blood Gas Notified Time 1655 Potassium Carbon Dioxide Anion Gap BUN Creatinine Est GFR ( Amer) Est GFR (Non-Af Amer) POC Glucose (mg/dL) 490 H* Random Glucose Calcium Total Bilirubin AST ALT Alkaline Phosphatase Total Protein Albumin Globulin Albumin/Globulin Ratio Venous Blood Potassium 4.2 Urine Color Urine Clarity Urine pH Ur Specific [place] Urine Protein Urine Glucose (UA) Urine Ketones Urine Blood Urine Nitrate Urine Bilirubin Urine Urobilinogen Ur Leukocyte Esterase Urine WBC (Auto) Urine RBC (Auto) Ur Squamous Epith Cells Stool Occult Blood Serum Ketones 11/26/17 11/26/17 11/26/17 16:51 17:29 18:08 WBC RBC Hgb Hct MCV MCH MCHC RDW Plt Count MPV Neut % (Auto) Lymph % (Auto) [place] % (Auto) Eos % (Auto) Baso % (Auto) Neut # (Auto) Lymph # (Auto) [place] # (Auto) Eos # (Auto) Baso # (Auto) Neutrophils % (Manual) Band Neutrophils % Lymphocytes % (Manual) Monocytes % (Manual) Platelet Estimate Large Platelets Anisocytosis (manual) Microcytosis (manual) Macrocytosis (manual) pO2 VBG pH VBG pCO2 VBG HCO3 VBG Total CO2 VBG O2 Sat (Calc) VBG Base Excess VBG Potassium Sodium 134 Chloride 92 L Glucose Lactate Crit Value Called To Crit Value Called By Crit Value Read Back Blood Gas Notified Time Potassium 5.0 Carbon Dioxide 11 L* D Anion Gap 37 H BUN 8 L Creatinine 0.7 L Est GFR ( Amer) > 60 Est GFR (Non-Af Amer) > 60 POC Glucose (mg/dL) 409 H* Random Glucose 557 H* D Calcium 9.0 Total Bilirubin 1.0 AST 26 ALT 37 Alkaline Phosphatase 175 H D Total Protein 8.3 Albumin 4.5 Globulin 3.8 Albumin/Globulin Ratio 1.2 Venous Blood Potassium Urine Color Urine Clarity Urine pH Ur Specific [place] Urine Protein Urine Glucose (UA) Urine Ketones Urine Blood Urine Nitrate Urine Bilirubin Urine Urobilinogen Ur Leukocyte Esterase Urine WBC (Auto) Urine RBC (Auto) Ur Squamous Epith Cells Stool Occult Blood Negative Serum Ketones Moderate 11/26/17 11/26/17 11/26/17 18:53 20:13 21:04 WBC RBC Hgb Hct MCV MCH MCHC RDW Plt Count MPV Neut % (Auto) Lymph % (Auto) [place] % (Auto) Eos % (Auto) Baso % (Auto) Neut # (Auto) Lymph # (Auto) [place] # (Auto) Eos # (Auto) Baso # (Auto) Neutrophils % (Manual) Band Neutrophils % Lymphocytes % (Manual) Monocytes % (Manual) Platelet Estimate Large Platelets Anisocytosis (manual) Microcytosis (manual) Macrocytosis (manual) pO2 VBG pH VBG pCO2 VBG HCO3 VBG Total CO2 VBG O2 Sat (Calc) VBG Base Excess VBG Potassium Sodium Chloride Glucose Lactate Crit Value Called To Crit Value Called By Crit Value Read Back Blood Gas Notified Time Potassium Carbon Dioxide Anion Gap BUN Creatinine Est GFR ( Amer) Est GFR (Non-Af Amer) POC Glucose (mg/dL) 279 H 238 H Random Glucose Calcium Total Bilirubin AST ALT Alkaline Phosphatase Total Protein Albumin Globulin Albumin/Globulin Ratio Venous Blood Potassium Urine Color Colorless Urine Clarity Clear Urine pH 5.0 Ur Specific [place] 1.027 Urine Protein Negative Urine Glucose (UA) 3+ H Urine Ketones 2+ H Urine Blood Negative Urine Nitrate Negative Urine Bilirubin Negative Urine Urobilinogen Normal Ur Leukocyte Esterase Neg Urine WBC (Auto) < 1 Urine RBC (Auto) < 1 Ur Squamous Epith Cells < 1 Stool Occult Blood Serum Ketones 11/26/17 11/26/17 11/26/17 21:46 22:01 23:12 WBC RBC Hgb Hct MCV MCH MCHC RDW Plt Count MPV Neut % (Auto) Lymph % (Auto) [place] % (Auto) Eos % (Auto) Baso % (Auto) Neut # (Auto) Lymph # (Auto) [place] # (Auto) Eos # (Auto) Baso # (Auto) Neutrophils % (Manual) Band Neutrophils % Lymphocytes % (Manual) Monocytes % (Manual) Platelet Estimate Large Platelets Anisocytosis (manual) Microcytosis (manual) Macrocytosis (manual) pO2 VBG pH VBG pCO2 VBG HCO3 VBG Total CO2 VBG O2 Sat (Calc) VBG Base Excess VBG Potassium Sodium 137 Chloride 100 Glucose Lactate Crit Value Called To Crit Value Called By Crit Value Read Back Blood Gas Notified Time Potassium 3.6 Carbon Dioxide 21 L Anion Gap 19 BUN 8 L Creatinine 0.6 L Est GFR ( Amer) > 60 Est GFR (Non-Af Amer) > 60 POC Glucose (mg/dL) 261 H 213 H Random Glucose 239 H Calcium 8.5 L Total Bilirubin AST ALT Alkaline Phosphatase Total Protein Albumin Globulin Albumin/Globulin Ratio Venous Blood Potassium Urine Color Urine Clarity Urine pH Ur Specific [place] Urine Protein Urine Glucose (UA) Urine Ketones Urine Blood Urine Nitrate Urine Bilirubin Urine Urobilinogen Ur Leukocyte Esterase Urine WBC (Auto) Urine RBC (Auto) Ur Squamous Epith Cells Stool Occult Blood Serum Ketones 11/26/17 11/27/17 11/27/17 23:59 01:03 01:39 WBC RBC Hgb Hct MCV MCH MCHC RDW Plt Count MPV Neut % (Auto) Lymph % (Auto) [place] % (Auto) Eos % (Auto) Baso % (Auto) Neut # (Auto) Lymph # (Auto) [place] # (Auto) Eos # (Auto) Baso # (Auto) Neutrophils % (Manual) Band Neutrophils % Lymphocytes % (Manual) Monocytes % (Manual) Platelet Estimate Large Platelets Anisocytosis (manual) Microcytosis (manual) Macrocytosis (manual) pO2 VBG pH VBG pCO2 VBG HCO3 VBG Total CO2 VBG O2 Sat (Calc) VBG Base Excess VBG Potassium Sodium 138 Chloride 103 Glucose Lactate Crit Value Called To Crit Value Called By Crit Value Read Back Blood Gas Notified Time Potassium 3.3 L Carbon Dioxide 23 Anion Gap 15 BUN 7 L Creatinine 0.5 L Est GFR ( Amer) > 60 Est GFR (Non-Af Amer) > 60 POC Glucose (mg/dL) 167 H 148 H Random Glucose 163 H Calcium 8.1 L Total Bilirubin AST ALT Alkaline Phosphatase Total Protein Albumin Globulin Albumin/Globulin Ratio Venous Blood Potassium Urine Color Urine Clarity Urine pH Ur Specific [place] Urine Protein Urine Glucose (UA) Urine Ketones Urine Blood Urine Nitrate Urine Bilirubin Urine Urobilinogen Ur Leukocyte Esterase Urine WBC (Auto) Urine RBC (Auto) Ur Squamous Epith Cells Stool Occult Blood Serum Ketones 11/27/17 11/27/17 11/27/17 02:03 03:24 04:06 WBC RBC Hgb Hct MCV MCH MCHC RDW Plt Count MPV Neut % (Auto) Lymph % (Auto) [place] % (Auto) Eos % (Auto) Baso % (Auto) Neut # (Auto) Lymph # (Auto) [place] # (Auto) Eos # (Auto) Baso # (Auto) Neutrophils % (Manual) Band Neutrophils % Lymphocytes % (Manual) Monocytes % (Manual) Platelet Estimate Large Platelets Anisocytosis (manual) Microcytosis (manual) Macrocytosis (manual) pO2 VBG pH VBG pCO2 VBG HCO3 VBG Total CO2 VBG O2 Sat (Calc) VBG Base Excess VBG Potassium Sodium Chloride Glucose Lactate Crit Value Called To Crit Value Called By Crit Value Read Back Blood Gas Notified Time Potassium Carbon Dioxide Anion Gap BUN Creatinine Est GFR ( Amer) Est GFR (Non-Af Amer) POC Glucose (mg/dL) 147 H 134 H 197 H Random Glucose Calcium Total Bilirubin AST ALT Alkaline Phosphatase Total Protein Albumin Globulin Albumin/Globulin Ratio Venous Blood Potassium Urine Color Urine Clarity Urine pH Ur Specific [place] Urine Protein Urine Glucose (UA) Urine Ketones Urine Blood Urine Nitrate Urine Bilirubin Urine Urobilinogen Ur Leukocyte Esterase Urine WBC (Auto) Urine RBC (Auto) Ur Squamous Epith Cells Stool Occult Blood Serum Ketones 11/27/17 05:56 WBC 12.9 H RBC 4.50 Hgb 13.2 Hct 39.4 MCV 87.6 D MCH 29.4 MCHC 33.6 RDW 13.8 Plt Count 269 MPV 8.6 Neut % (Auto) 80.5 H Lymph % (Auto) 8.1 L [place] % (Auto) 10.3 H Eos % (Auto) 0.8 Baso % (Auto) 0.3 Neut # (Auto) 10.4 H Lymph # (Auto) 1.0 [place] # (Auto) 1.3 H Eos # (Auto) 0.1 Baso # (Auto) 0.0 Neutrophils % (Manual) Band Neutrophils % Lymphocytes % (Manual) Monocytes % (Manual) Platelet Estimate Large Platelets Anisocytosis (manual) Microcytosis (manual) Macrocytosis (manual) pO2 VBG pH VBG pCO2 VBG HCO3 VBG Total CO2 VBG O2 Sat (Calc) VBG Base Excess VBG Potassium Sodium Chloride Glucose Lactate Crit Value Called To Crit Value Called By Crit Value Read Back Blood Gas Notified Time Potassium Carbon Dioxide Anion Gap BUN Creatinine Est GFR ( Amer) Est GFR (Non-Af Amer) POC Glucose (mg/dL) Random Glucose Calcium Total Bilirubin AST ALT Alkaline Phosphatase Total Protein Albumin Globulin Albumin/Globulin Ratio Venous Blood Potassium Urine Color Urine Clarity Urine pH Ur Specific [place] Urine Protein Urine Glucose (UA) Urine Ketones Urine Blood Urine Nitrate Urine Bilirubin Urine Urobilinogen Ur Leukocyte Esterase Urine WBC (Auto) Urine RBC (Auto) Ur Squamous Epith Cells Stool Occult Blood Serum Ketones Assessment & Plan - Date & Time Date: 11/27/17 (I have seen and examined the patient. I agree with the findings and plan of care as documented by Dr. Blanton. Patient with DKA. Admit to ICU. Insulin drip. Management as per ICU. Also with perianal abscess. Consult to surgery. Monitor for acute changes.) Time: 06:23 Attending/Attestation - Attestation I have personally seen and examined this patient.: Yes I have fully participated in the care of the patient.: Yes I have reviewed all pertinent clinical information: Yes
[2017-11-26] MEDS: Sodium Chloride 0.9% 1,000 ML IV SCH ×2 (19:30→23:45)
[2017-11-26] MEDS: Ciprofloxacin 400mg/200ml D5W 400 MG/200 ML BAG IVPB SCH (20:00)
[2017-11-26] MEDS ORDERED: DiphenhydrAMINE 50 mg/ml Inj IVP PRN (20:14)
[2017-11-26 22:08] LABS: BLOOD UREA NITROGEN 8 mg/dL (9-20); CALCIUM 8.5 mg/dl (8.6-10.4); GFR AFRICAN-AMERICAN > 60; GFR NON-AFRICAN AMERICAN > 60
[2017-11-26] MEDS: metroNIDAZOLE IV 500 mg/100 ml 250 MG in Premixed IV 1 EA IVPB SCH (23:00)
[2017-11-27] MEDS ORDERED: Potassium Ch 20mEq in D5-1/2NS 1,000 ML IV SCH (00:30)
[2017-11-27 01:56] LABS: BLOOD UREA NITROGEN 7 mg/dL (9-20); CALCIUM 8.1 mg/dl (8.6-10.4); GFR AFRICAN-AMERICAN > 60; GFR NON-AFRICAN AMERICAN > 60
[2017-11-27] MEDS ORDERED: (Lantus) Insulin Glargine, Recombinant SC STA (02:15)
[2017-11-27] MEDS: (Novolog) Insulin Aspart, Recombinant 100 u/ml 10 ml vial SC SCH ×5 (04:10→20:15)
[2017-11-27] MEDS: metroNIDAZOLE IV 500 mg/100 ml 250 MG in Premixed IV 1 EA IVPB SCH ×3 (06:00→21:29)
[2017-11-27 06:06] LABS: BASO % 0.3 % (0.0-2.0); EOS # 0.1 K/uL (0.0-0.7); EOS % 0.8 % (0.0-4.0); HEMOGLOBIN 13.2 g/dL (12.0-18.0); LYMPH % 8.1 % (20.0-40.0); MEAN CELL VOLUME 87.6 fL (80.0-94.0); MEAN CORPUSCULAR HEMOGLOBIN 29.4 pg (27.0-31.0); MEAN CORPUSCULAR HGB CONC 33.6 g/dL (33.0-37.0); MEAN PLATELET VOLUME 8.6 fL (7.2-11.7); MONO # 1.3 K/uL (0.0-0.8); MONO % 10.3 % (0.0-10.0); NEUT # 10.4 K/uL (1.8-7.0); NEUT % 80.5 % (50.0-75.0); PLATELET COUNT 269 K/uL (130-400); RED CELL DISTRIBUTION WIDTH 13.8 % (11.5-14.5); WHITE BLOOD COUNT 12.9 K/uL (4.8-10.8)
[2017-11-27 07:19] LABS: ALBUMIN 3.4 g/dL (3.5-5.0); ALT/SGPT 22 U/L (21-72); AST/SGOT 18 U/L (17-59); BLOOD UREA NITROGEN 7 mg/dL (9-20); CALCIUM 8.6 mg/dl (8.6-10.4); GFR AFRICAN-AMERICAN > 60; GFR NON-AFRICAN AMERICAN > 60
[2017-11-27] MEDS ORDERED: Potassium Chloride 20 mEq ER Tab PO ONE (07:30)
[2017-11-27 08:05] LABS: BANDS 9 % (0-2); EOSINOPHIL 1 % (0-4); LYMPHOCYTE 6 % (20-40); MONOCYTE 10 % (0-10); NEUTROPHIL 73 % (50-75); PLATELET ESTIMATE NORMAL (NORMAL); REACTIVE LYMPHOCYTES 1 % (0-0); TOTAL CELLS COUNTED 100
--- NOTE | 2017-11-27 08:16 | CP.PCM.CON ---
<Siobhan Chapman - Last Filed: 11/27/17 08:07> History of Present Illness - History of Present Illness History of Present Illness: Surgery Consult: Dr. Silver Pt is a 27M with PMHx significant for Crohn's disease, DM, Bipolar disorder who presents to with complaints of abdominal pain & diarrhea x 1 day. Pt states his symptoms started suddenly 2 days ago after eatin some steak. He admits to having multiple soft BMs through out the day on a normal basis due to his Crohn' s, however this time also had blood in his stool. He states abdominal pain is diffuse in nature and admits to associated perianal pain. Pt recalls having a perianal abscess drained in the past. He states he is unable to sit or lay on his back due to the perianal pain. Pt admits to having 2 colonoscopies/ endoscopies and states was diagnosed with Crohn's 3 months ago but has not been on any medication. Surgery & GI consults called to evaluate. Currently, pt is resting comfortably in bed. States abdominal pain has improved but continues to have perianal pain. Denies other complaints at this time. Denies N/V, F/C, chest pain or SOB. PMHx: as stated above PSHx: denies SocialHx: admits to smoking marijuana/cocaine, denies EtOH NKDA Review of Systems - Review of Systems All systems: reviewed and no additional remarkable complaints except (as per HPI ) Past Patient History - Infectious Disease Hx of Infectious Diseases: None - Past Medical History & Family History Past Medical History?: Yes - Past Social History Smoking Status: Current Some Days Smoker - PULMONARY Hx Respiratory Disorders: No - NEUROLOGICAL Other/Comment: Neuropathy - ENDOCRINE/METABOLIC Hx Endocrine Disorders: Yes Hx Diabetes Mellitus Type 1: Yes (insulin dependent) - HEMATOLOGICAL/ONCOLOGICAL Hx Human Immunodeficiency Virus (HIV): No - GASTROINTESTINAL Hx Crohn's Disease: Yes - GENITOURINARY/GYNECOLOGICAL Hx Genitourinary Disorders: No - PSYCHIATRIC Hx Anxiety: Yes Hx Bipolar Disorder: Yes Hx Depression: Yes Hx Schizophrenia: Yes Hx Substance Use: Yes (smokes marijuana occasionally for chronic pain) Meds Allergies/Adverse Reactions: Allergies Allergy/AdvReac Type Severity Reaction Status Date / Time No Known Allergies Allergy Verified 11/26/17 16:08 - Medications Medications: Current Medications Diphenhydramine HCl (Benadryl) 25 mg IVP Q6 PRN PRN Reason: Insomnia Last Admin: 11/26/17 22:00 Dose: 25 mg Home Med (Seroquel) 1 tab PO DAILY [facility] Home Med (Trazodone) 1 tab PO DAILY [facility] Ciprofloxacin (Cipro 400mg/200ml Dsw) 400 mg in 200 mls @ 133 mls/hr IVPB Q12H JOHANA PRN Reason: Protocol Last Admin: 11/26/17 20:00 Dose: 133 mls/hr Metronidazole 250 mg/ (Miscellaneous) 50 mls @ 100 mls/hr IVPB Q8 JOHANA PRN Reason: Protocol Last Admin: 11/26/17 23:00 Dose: 100 mls/hr Insulin Aspart (Novolog) 0 unit SC Q4 JOHANA PRN Reason: Protocol Last Admin: 11/27/17 04:10 Dose: 2 unit Pantoprazole Sodium (Protonix Inj) 40 mg IVP DAILY [facility] Physical Exam - Constitutional Appears: Well, No Acute Distress - Head Exam Head Exam: ATRAUMATIC, NORMOCEPHALIC - Eye Exam Eye Exam: Normal appearance - ENT Exam ENT Exam: Mucous Membranes Moist - Respiratory Exam Respiratory Exam: NORMAL BREATHING PATTERN - Cardiovascular Exam Cardiovascular Exam: RRR - GI/Abdominal Exam GI & Abdominal Exam: Soft. absent: Distended, Tenderness - Rectal Exam Additional comments: erythema & induration noted around perianal region with ttp upon CHANEL, no blood, no fluctuance noted - Neurological Exam Neurological exam: Alert, Oriented x3 - Skin Skin Exam: Dry, Warm Results - Vital Signs Recent Vital Signs: Last Vital Signs Temp 98.8 F 11/27/17 04:00 Pulse 94 H 11/27/17 05:00 Resp 19 11/27/17 05:00 BP 102/61 11/27/17 03:55 Pulse Ox 99 11/27/17 04:10 - Labs Result Diagrams: 11/27/17 05:56 11/27/17 05:56 Labs: Laboratory Results - last 24 hr 11/26/17 11/26/17 11/26/17 15:49 16:39 16:40 WBC 14.3 H D RBC 5.09 Hgb 15.0 D Hct 46.2 MCV 90.9 D MCH 29.5 MCHC 32.4 L RDW 14.4 Plt Count 286 MPV 9.8 Neut % (Auto) 84.3 H Lymph % (Auto) 7.1 L [place] % (Auto) 7.9 Eos % (Auto) 0.1 Baso % (Auto) 0.6 Neut # (Auto) 12.1 H Lymph # (Auto) 1.0 [place] # (Auto) 1.1 H Eos # (Auto) 0.0 Baso # (Auto) 0.1 Neutrophils % (Manual) 80 H Band Neutrophils % 4 H Lymphocytes % (Manual) 10 L Reactive Lymphs % Monocytes % (Manual) 6 Eosinophils % (Manual) Platelet Estimate Normal Large Platelets Present RBC Morphology Anisocytosis (manual) Slight Microcytosis (manual) Slight Macrocytosis (manual) Slight pO2 29 L VBG pH 7.18 L* VBG pCO2 31 L VBG HCO3 11.2 VBG Total CO2 12.6 L VBG O2 Sat (Calc) 61.9 VBG Base Excess -15.5 L VBG Potassium 4.2 Sodium 134.0 Chloride 90.0 L Glucose 560 H* D Lactate 3.1 H Crit Value Called To Valeria tsorm Crit Value Called By Luzma insurance appraiser Crit Value Read Back Y Blood Gas Notified Time 1655 Potassium Carbon Dioxide Anion Gap BUN Creatinine Est GFR ( Amer) Est GFR (Non-Af Amer) POC Glucose (mg/dL) 490 H* Random Glucose Calcium Phosphorus Magnesium Total Bilirubin AST ALT Alkaline Phosphatase Total Protein Albumin Globulin Albumin/Globulin Ratio Venous Blood Potassium 4.2 Urine Color Urine Clarity Urine pH Ur Specific [place] Urine Protein Urine Glucose (UA) Urine Ketones Urine Blood Urine Nitrate Urine Bilirubin Urine Urobilinogen Ur Leukocyte Esterase Urine WBC (Auto) Urine RBC (Auto) Ur Squamous Epith Cells Stool Occult Blood Serum Ketones 11/26/17 11/26/17 11/26/17 16:51 17:29 18:08 WBC RBC Hgb Hct MCV MCH MCHC RDW Plt Count MPV Neut % (Auto) Lymph % (Auto) [place] % (Auto) Eos % (Auto) Baso % (Auto) Neut # (Auto) Lymph # (Auto) [place] # (Auto) Eos # (Auto) Baso # (Auto) Neutrophils % (Manual) Band Neutrophils % Lymphocytes % (Manual) Reactive Lymphs % Monocytes % (Manual) Eosinophils % (Manual) Platelet Estimate Large Platelets RBC Morphology Anisocytosis (manual) Microcytosis (manual) Macrocytosis (manual) pO2 VBG pH VBG pCO2 VBG HCO3 VBG Total CO2 VBG O2 Sat (Calc) VBG Base Excess VBG Potassium Sodium 134 Chloride 92 L Glucose Lactate Crit Value Called To Crit Value Called By Crit Value Read Back Blood Gas Notified Time Potassium 5.0 Carbon Dioxide 11 L* D Anion Gap 37 H BUN 8 L Creatinine 0.7 L Est GFR ( Amer) > 60 Est GFR (Non-Af Amer) > 60 POC Glucose (mg/dL) 409 H* Random Glucose 557 H* D Calcium 9.0 Phosphorus Magnesium Total Bilirubin 1.0 AST 26 ALT 37 Alkaline Phosphatase 175 H D Total Protein 8.3 Albumin 4.5 Globulin 3.8 Albumin/Globulin Ratio 1.2 Venous Blood Potassium Urine Color Urine Clarity Urine pH Ur Specific [place] Urine Protein Urine Glucose (UA) Urine Ketones Urine Blood Urine Nitrate Urine Bilirubin Urine Urobilinogen Ur Leukocyte Esterase Urine WBC (Auto) Urine RBC (Auto) Ur Squamous Epith Cells Stool Occult Blood Negative Serum Ketones Moderate 11/26/17 11/26/17 11/26/17 18:53 20:13 21:04 WBC RBC Hgb Hct MCV MCH MCHC RDW Plt Count MPV Neut % (Auto) Lymph % (Auto) [place] % (Auto) Eos % (Auto) Baso % (Auto) Neut # (Auto) Lymph # (Auto) [place] # (Auto) Eos # (Auto) Baso # (Auto) Neutrophils % (Manual) Band Neutrophils % Lymphocytes % (Manual) Reactive Lymphs % Monocytes % (Manual) Eosinophils % (Manual) Platelet Estimate Large Platelets RBC Morphology Anisocytosis (manual) Microcytosis (manual) Macrocytosis (manual) pO2 VBG pH VBG pCO2 VBG HCO3 VBG Total CO2 VBG O2 Sat (Calc) VBG Base Excess VBG Potassium Sodium Chloride Glucose Lactate Crit Value Called To Crit Value Called By Crit Value Read Back Blood Gas Notified Time Potassium Carbon Dioxide Anion Gap BUN Creatinine Est GFR ( Amer) Est GFR (Non-Af Amer) POC Glucose (mg/dL) 279 H 238 H Random Glucose Calcium Phosphorus Magnesium Total Bilirubin AST ALT Alkaline Phosphatase Total Protein Albumin Globulin Albumin/Globulin Ratio Venous Blood Potassium Urine Color Colorless Urine Clarity Clear Urine pH 5.0 Ur Specific [place] 1.027 Urine Protein Negative Urine Glucose (UA) 3+ H Urine Ketones 2+ H Urine Blood Negative Urine Nitrate Negative Urine Bilirubin Negative Urine Urobilinogen Normal Ur Leukocyte Esterase Neg Urine WBC (Auto) < 1 Urine RBC (Auto) < 1 Ur Squamous Epith Cells < 1 Stool Occult Blood Serum Ketones 11/26/17 11/26/17 11/26/17 21:46 22:01 23:12 WBC RBC Hgb Hct MCV MCH MCHC RDW Plt Count MPV Neut % (Auto) Lymph % (Auto) [place] % (Auto) Eos % (Auto) Baso % (Auto) Neut # (Auto) Lymph # (Auto) [place] # (Auto) Eos # (Auto) Baso # (Auto) Neutrophils % (Manual) Band Neutrophils % Lymphocytes % (Manual) Reactive Lymphs % Monocytes % (Manual) Eosinophils % (Manual) Platelet Estimate Large Platelets RBC Morphology Anisocytosis (manual) Microcytosis (manual) Macrocytosis (manual) pO2 VBG pH VBG pCO2 VBG HCO3 VBG Total CO2 VBG O2 Sat (Calc) VBG Base Excess VBG Potassium Sodium 137 Chloride 100 Glucose Lactate Crit Value Called To Crit Value Called By Crit Value Read Back Blood Gas Notified Time Potassium 3.6 Carbon Dioxide 21 L Anion Gap 19 BUN 8 L Creatinine 0.6 L Est GFR ( Amer) > 60 Est GFR (Non-Af Amer) > 60 POC Glucose (mg/dL) 261 H 213 H Random Glucose 239 H Calcium 8.5 L Phosphorus Magnesium Total Bilirubin AST ALT Alkaline Phosphatase Total Protein Albumin Globulin Albumin/Globulin Ratio Venous Blood Potassium Urine Color Urine Clarity Urine pH Ur Specific [place] Urine Protein Urine Glucose (UA) Urine Ketones Urine Blood Urine Nitrate Urine Bilirubin Urine Urobilinogen Ur Leukocyte Esterase Urine WBC (Auto) Urine RBC (Auto) Ur Squamous Epith Cells Stool Occult Blood Serum Ketones 11/26/17 11/27/17 11/27/17 23:59 01:03 01:39 WBC RBC Hgb Hct MCV MCH MCHC RDW Plt Count MPV Neut % (Auto) Lymph % (Auto) [place] % (Auto) Eos % (Auto) Baso % (Auto) Neut # (Auto) Lymph # (Auto) [place] # (Auto) Eos # (Auto) Baso # (Auto) Neutrophils % (Manual) Band Neutrophils % Lymphocytes % (Manual) Reactive Lymphs % Monocytes % (Manual) Eosinophils % (Manual) Platelet Estimate Large Platelets RBC Morphology Anisocytosis (manual) Microcytosis (manual) Macrocytosis (manual) pO2 VBG pH VBG pCO2 VBG HCO3 VBG Total CO2 VBG O2 Sat (Calc) VBG Base Excess VBG Potassium Sodium 138 Chloride 103 Glucose Lactate Crit Value Called To Crit Value Called By Crit Value Read Back Blood Gas Notified Time Potassium 3.3 L Carbon Dioxide 23 Anion Gap 15 BUN 7 L Creatinine 0.5 L Est GFR ( Amer) > 60 Est GFR (Non-Af Amer) > 60 POC Glucose (mg/dL) 167 H 148 H Random Glucose 163 H Calcium 8.1 L Phosphorus Magnesium Total Bilirubin AST ALT Alkaline Phosphatase Total Protein Albumin Globulin Albumin/Globulin Ratio Venous Blood Potassium Urine Color Urine Clarity Urine pH Ur Specific [place] Urine Protein Urine Glucose (UA) Urine Ketones Urine Blood Urine Nitrate Urine Bilirubin Urine Urobilinogen Ur Leukocyte Esterase Urine WBC (Auto) Urine RBC (Auto) Ur Squamous Epith Cells Stool Occult Blood Serum Ketones 11/27/17 11/27/17 11/27/17 02:03 03:24 04:06 WBC RBC Hgb Hct MCV MCH MCHC RDW Plt Count MPV Neut % (Auto) Lymph % (Auto) [place] % (Auto) Eos % (Auto) Baso % (Auto) Neut # (Auto) Lymph # (Auto) [place] # (Auto) Eos # (Auto) Baso # (Auto) Neutrophils % (Manual) Band Neutrophils % Lymphocytes % (Manual) Reactive Lymphs % Monocytes % (Manual) Eosinophils % (Manual) Platelet Estimate Large Platelets RBC Morphology Anisocytosis (manual) Microcytosis (manual) Macrocytosis (manual) pO2 VBG pH VBG pCO2 VBG HCO3 VBG Total CO2 VBG O2 Sat (Calc) VBG Base Excess VBG Potassium Sodium Chloride Glucose Lactate Crit Value Called To Crit Value Called By Crit Value Read Back Blood Gas Notified Time Potassium Carbon Dioxide Anion Gap BUN Creatinine Est GFR ( Amer) Est GFR (Non-Af Amer) POC Glucose (mg/dL) 147 H 134 H 197 H Random Glucose Calcium Phosphorus Magnesium Total Bilirubin AST ALT Alkaline Phosphatase Total Protein Albumin Globulin Albumin/Globulin Ratio Venous Blood Potassium Urine Color Urine Clarity Urine pH Ur Specific [place] Urine Protein Urine Glucose (UA) Urine Ketones Urine Blood Urine Nitrate Urine Bilirubin Urine Urobilinogen Ur Leukocyte Esterase Urine WBC (Auto) Urine RBC (Auto) Ur Squamous Epith Cells Stool Occult Blood Serum Ketones 11/27/17 11/27/17 11/27/17 05:56 05:56 07:55 WBC 12.9 H RBC 4.50 Hgb 13.2 Hct 39.4 MCV 87.6 D MCH 29.4 MCHC 33.6 RDW 13.8 Plt Count 269 MPV 8.6 Neut % (Auto) 80.5 H Lymph % (Auto) 8.1 L [place] % (Auto) 10.3 H Eos % (Auto) 0.8 Baso % (Auto) 0.3 Neut # (Auto) 10.4 H Lymph # (Auto) 1.0 [place] # (Auto) 1.3 H Eos # (Auto) 0.1 Baso # (Auto) 0.0 Neutrophils % (Manual) 73 Band Neutrophils % 9 H Lymphocytes % (Manual) 6 L Reactive Lymphs % 1 H Monocytes % (Manual) 10 Eosinophils % (Manual) 1 Platelet Estimate Normal Large Platelets RBC Morphology Normal Anisocytosis (manual) Microcytosis (manual) Macrocytosis (manual) pO2 VBG pH VBG pCO2 VBG HCO3 VBG Total CO2 VBG O2 Sat (Calc) VBG Base Excess VBG Potassium Sodium 138 Chloride 103 Glucose Lactate Crit Value Called To Crit Value Called By Crit Value Read Back Blood Gas Notified Time Potassium 3.2 L Carbon Dioxide 24 Anion Gap 14 BUN 7 L Creatinine 0.6 L Est GFR ( Amer) > 60 Est GFR (Non-Af Amer) > 60 POC Glucose (mg/dL) 156 H Random Glucose 131 H Calcium 8.6 Phosphorus 1.8 L Magnesium 2.1 Total Bilirubin 0.5 AST 18 ALT 22 Alkaline Phosphatase 108 Total Protein 6.9 Albumin 3.4 L D Globulin 3.5 Albumin/Globulin Ratio 1.0 Venous Blood Potassium Urine Color Urine Clarity Urine pH Ur Specific [place] Urine Protein Urine Glucose (UA) Urine Ketones Urine Blood Urine Nitrate Urine Bilirubin Urine Urobilinogen Ur Leukocyte Esterase Urine WBC (Auto) Urine RBC (Auto) Ur Squamous Epith Cells Stool Occult Blood Serum Ketones Assessment & Plan - Assessment and Plan (Free Text) Assessment: 27M with Crohn's disease & r/o perianal abscess Plan: - CT abdomen/pelvis to better evaluate for possible deep abscess - f/u GI recs - d/w Dr. Nadeem Chapman, PGY-3 <John Silver B - Last Filed: 11/29/17 16:01> Meds - Medications Medications: Current Medications Hydromorphone HCl (Dilaudid) 0.5 mg IVP Q5M PRN PRN Reason: Pain, severe (8-10) Stop: 11/29/17 16:40 Last Admin: 11/29/17 15:10 Dose: 0.5 mg Ciprofloxacin (Cipro 400mg/200ml Dsw) 400 mg in 200 mls @ 133 mls/hr IVPB Q12H [facility]OHANA PRN Reason: Protocol Last Admin: 11/29/17 08:00 Dose: 133 mls/hr Metronidazole 250 mg/ (Miscellaneous) 50 mls @ 100 mls/hr IVPB Q8 JOHANA PRN Reason: Protocol Last Admin: 11/29/17 13:13 Dose: Not Given Insulin Glargine (Lantus) 7 unit SC [facility] Last Admin: 11/28/17 21:27 Dose: 7 units Insulin Human Regular (Novolin R) 4 unit SC [facility] Last Admin: 11/29/17 11:52 Dose: Not Given Ketorolac Tromethamine (Toradol) 15 mg IVP Q6 PRN PRN Reason: Pain, moderate (4-7) Last Admin: 11/28/17 05:54 Dose: 15 mg Ketorolac Tromethamine (Toradol) 30 mg IVP Q6 PRN PRN Reason: Pain, severe (8-10) Last Admin: 11/29/17 08:13 Dose: 30 mg Mirtazapine (Remeron) 30 mg PO [facility] Last Admin: 11/28/17 21:29 Dose: 30 mg Pantoprazole Sodium (Protonix Inj) 40 mg IVP DAILY [facility] Last Admin: 11/29/17 09:29 Dose: 40 mg Saccharomyces Boulardii (Florastor) 250 mg PO BID [facility] Last Admin: 11/29/17 09:30 Dose: Not Given Results - Vital Signs Recent Vital Signs: Last Vital Signs Temp 98.6 F 11/29/17 14:38 Pulse 64 11/29/17 15:15 Resp 10 L 11/29/17 15:15 BP 108/71 11/29/17 15:15 Pulse Ox 99 11/29/17 15:15 - Labs Result Diagrams: 11/29/17 06:40 11/29/17 06:40 Labs: Laboratory Results - last 24 hr 11/28/17 11/28/17 11/29/17 16:20 20:53 00:21 WBC RBC Hgb Hct MCV MCH MCHC RDW Plt Count MPV Neut % (Auto) Lymph % (Auto) [place] % (Auto) Eos % (Auto) Baso % (Auto) Neut # (Auto) Lymph # (Auto) [place] # (Auto) Eos # (Auto) Baso # (Auto) Sodium Potassium Chloride Carbon Dioxide Anion Gap BUN Creatinine Est GFR ( Amer) Est GFR (Non-Af Amer) POC Glucose (mg/dL) 346 H 387 H 418 H* Random Glucose Calcium Phosphorus Magnesium 11/29/17 11/29/17 11/29/17 03:52 06:40 06:40 WBC 9.2 RBC 4.20 L Hgb 12.4 Hct 37.1 MCV 88.4 MCH 29.6 MCHC 33.5 RDW 14.0 Plt Count 247 MPV 9.0 Neut % (Auto) 67.8 Lymph % (Auto) 15.7 L [place] % (Auto) 14.1 H Eos % (Auto) 1.6 Baso % (Auto) 0.8 Neut # (Auto) 6.2 Lymph # (Auto) 1.4 [place] # (Auto) 1.3 H Eos # (Auto) 0.1 Baso # (Auto) 0.1 Sodium 138 Potassium 3.6 Chloride 103 Carbon Dioxide 27 Anion Gap 12 BUN 7 L Creatinine 0.5 L Est GFR ( Amer) > 60 Est GFR (Non-Af Amer) > 60 POC Glucose (mg/dL) 223 H Random Glucose 241 H Calcium 8.4 L Phosphorus 3.4 Magnesium 2.3 11/29/17 11/29/17 07:19 11:35 WBC RBC Hgb Hct MCV MCH MCHC RDW Plt Count MPV Neut % (Auto) Lymph % (Auto) [place] % (Auto) Eos % (Auto) Baso % (Auto) Neut # (Auto) Lymph # (Auto) [place] # (Auto) Eos # (Auto) Baso # (Auto) Sodium Potassium Chloride Carbon Dioxide Anion Gap BUN Creatinine Est GFR ( Amer) Est GFR (Non-Af Amer) POC Glucose (mg/dL) 235 H 278 H Random Glucose Calcium Phosphorus Magnesium Attending/Attestation - Attestation I have personally seen and examined this patient.: Yes I have fully participated in the care of the patient.: Yes I have reviewed all pertinent clinical information: Yes Notes (Text): Pt was seen and examined at bedside Agree with above note and assessment Pt with prianal pain and tenderness Abdomen soft and nontender Labs and radiology reviewed Ass: Perianal pain and abscess IV antibiotics GI consult for clearance OR for I & D of perianal abscess once cleared Plan d.w pt in detail Risk and benefit explained in detail.
[2017-11-27] MEDS: Ciprofloxacin 400mg/200ml D5W 400 MG/200 ML BAG IVPB SCH ×2 (08:30→19:48)
[2017-11-27] MEDS ORDERED: Iohexol 240 (50 ml) PO ONE (09:00)
[2017-11-27] MEDS ORDERED: TRAZODONE PO SCH (10:00)
[2017-11-27] MEDS ORDERED: SEROQUEL PO SCH (10:00)
[2017-11-27] MEDS ORDERED: Morphine 4 MG/ML VIAL IV ONE (10:13)
--- NOTE | 2017-11-27 10:34 | CP.CCUPN ---
<Sabino Sanchez - Last Filed: 11/27/17 10:27> CCU Subjective - Physician Review Subjective (Free Text): 11/27/17 10:27 Patient seen and examined. Patient is complaining of diffuse abdominal pain as well as pain in the perianal/perirectal region. CCU Objective - Vital Signs / Intake & Output Vital Signs (Last 4 hours): Vital Signs Pulse Resp BP Pulse Ox 11/27/17 08:10 86 19 90 L 11/27/17 08:00 75 18 93/56 L 100 11/27/17 07:50 91 H 12 99 11/27/17 07:40 87 16 100 11/27/17 07:30 86 13 100 11/27/17 07:20 82 12 99 11/27/17 07:10 90 20 99 11/27/17 07:00 89 13 98 11/27/17 06:50 87 18 100 11/27/17 06:40 87 16 99 11/27/17 06:30 97 H 15 99 Intake and Output (Last 8hrs): Intake & Output 11/26/17 11/27/17 11/27/17 22:59 06:59 14:59 Intake Total 1011 936 0 Output Total 0 500 0 Balance 1011 436 0 Weight 90 lb 93 lb Intake: Intake, IV Amount 1011 936 0 Forearm 11 11 0 Right Medial Port Forearm 750 875 0 Right Proximal Port 250 50 Forearm Output: Urine 0 500 0 Urine, Voided 0 500 0 Stool 0 0 Other: Voiding Method Urinal # Voids Urine, Voided 1 - Physical Exam Head: Positive for: Atraumatic, Normocephalic Pupils: Positive for: PERRL Extroacular Muscles: Positive for: EOMI Mouth: Positive for: Moist Mucous Membranes Respiratory/Chest: Positive for: Clear to Auscultation. Negative for: Wheezes, Rales, Rhonchi Cardiovascular: Positive for: Regular Rate and Rhythm, Normal S1, S2 Abdomen: Positive for: Tenderness, Normal Bowel Sounds Rectal: Positive for: Other (erythema noted perianal region) Upper Extremity: Positive for: Normal Inspection Lower Extremity: Positive for: Normal Inspection Neurological: Positive for: GCS=15 Skin: Positive for: Warm, Dry Psychiatric: Positive for: Alert, Oriented x 3 - Medications Active Medications: Active Medications Generic Name Dose Route Start Last Admin Trade Name Freq PRN Reason Stop Dose Admin Diphenhydramine HCl 25 mg 11/26/17 20:14 11/26/17 22:00 Benadryl IVP 25 mg Q6 PRN Administration Insomnia Home Med 1 tab 11/27/17 10:00 Seroquel PO DAILY JOHANA Home Med 1 tab 11/27/17 10:00 Trazodone PO DAILY JOHANA Ciprofloxacin 400 mg in 200 mls @ 133 mls/hr 11/26/17 19:30 11/27/17 08:30 Cipro 400mg/200ml Dsw IVPB 133 mls/hr Q12H JOHANA Administration Protocol Metronidazole 250 mg/ 50 mls @ 100 mls/hr 11/26/17 22:00 11/27/17 06:00 Miscellaneous IVPB 100 mls/hr Q8 JOHANA Administration Protocol Insulin Aspart 0 unit 11/27/17 04:00 11/27/17 08:33 Novolog SC 2 unit Q4 JOHANA Administration Protocol Pantoprazole Sodium 40 mg 11/27/17 10:00 11/27/17 09:29 Protonix Inj IVP 40 mg DAILY JOHANA Administration - Patient Studies Lab Studies: Lab Studies 11/27/17 11/27/17 11/27/17 Range/Units 07:55 05:56 05:56 WBC 12.9 H (4.8-10.8) K/uL RBC 4.50 (4.40-5.90) Mil/uL Hgb 13.2 (12.0-18.0) g/dL Hct 39.4 (35.0-51.0) % MCV 87.6 D (80.0-94.0) fL MCH 29.4 (27.0-31.0) pg MCHC 33.6 (33.0-37.0) g/dL RDW 13.8 (11.5-14.5) % Plt Count 269 (130-400) K/uL MPV 8.6 (7.2-11.7) fL Neut % (Auto) 80.5 H (50.0-75.0) % Lymph % (Auto) 8.1 L (20.0-40.0) % [place] % (Auto) 10.3 H (0.0-10.0) % Eos % (Auto) 0.8 (0.0-4.0) % Baso % (Auto) 0.3 (0.0-2.0) % Neut # (Auto) 10.4 H (1.8-7.0) K/uL Lymph # (Auto) 1.0 (1.0-4.3) K/uL [place] # (Auto) 1.3 H (0.0-0.8) K/uL Eos # (Auto) 0.1 (0.0-0.7) K/uL Baso # (Auto) 0.0 (0.0-0.2) K/uL Neutrophils % (Manual) 73 (50-75) % Band Neutrophils % 9 H (0-2) % Lymphocytes % (Manual) 6 L (20-40) % Reactive Lymphs % 1 H (0-0) % Monocytes % (Manual) 10 (0-10) % Eosinophils % (Manual) 1 (0-4) % Platelet Estimate Normal (NORMAL) Large Platelets RBC Morphology Normal Anisocytosis (manual) Microcytosis (manual) Macrocytosis (manual) pO2 (30-55) mm/Hg VBG pH (7.32-7.43) VBG pCO2 (40-60) mmHg VBG HCO3 mmol/L VBG Total CO2 (22-28) mmol/L VBG O2 Sat (Calc) (40-65) % VBG Base Excess (0.0-2.0) mmol/L VBG Potassium (3.6-5.2) mmol/L Sodium 138 (132-148) mmol/l Chloride 103 (98-107) mmol/L Glucose (75-110) mg/dl Lactate (0.7-2.1) mmol/L Crit Value Called To Crit Value Called By Crit Value Read Back Blood Gas Notified Time Potassium 3.2 L (3.6-5.2) mmol/L Carbon Dioxide 24 (22-30) mmol/L Anion Gap 14 (10-20) BUN 7 L (9-20) mg/dL Creatinine 0.6 L (0.8-1.5) mg/dL Est GFR ( Amer) > 60 Est GFR (Non-Af Amer) > 60 POC Glucose (mg/dL) 156 H (65-110) mg/dL Random Glucose 131 H (75-110) mg/dL Calcium 8.6 (8.6-10.4) mg/dl Phosphorus 1.8 L (2.5-4.5) mg/dL Magnesium 2.1 (1.6-2.3) mg/dL Total Bilirubin 0.5 (0.2-1.3) mg/dL AST 18 (17-59) U/L ALT 22 (21-72) U/L Alkaline Phosphatase 108 (38-126) U/L Total Protein 6.9 (6.3-8.3) g/dL Albumin 3.4 L D (3.5-5.0) g/dL Globulin 3.5 (2.2-3.9) gm/dL Albumin/Globulin Ratio 1.0 (1.0-2.1) Venous Blood Potassium (3.6-5.2) mmol/L Urine Color (YELLOW) Urine Clarity (Clear) Urine pH (5.0-8.0) Ur Specific [place] (1.003-1.030) Urine Protein (NEGATIVE) mg/dL Urine Glucose (UA) (Normal) mg/dL Urine Ketones (NEGATIVE) mg/dL Urine Blood (NEGATIVE) Urine Nitrate (NEGATIVE) Urine Bilirubin (NEGATIVE) Urine Urobilinogen (0.2-1.0) mg/dL Ur Leukocyte Esterase (Negative) Shelly/uL Urine WBC (Auto) (0-5) /hpf Urine RBC (Auto) (0-3) /hpf Ur Squamous Epith Cells (0-5) /hpf Stool Occult Blood (NEGATIVE) Serum Ketones (NEGATIVE) 11/27/17 11/27/17 11/27/17 Range/Units 04:06 03:24 02:03 WBC (4.8-10.8) K/uL RBC (4.40-5.90) Mil/uL Hgb (12.0-18.0) g/dL Hct (35.0-51.0) % MCV (80.0-94.0) fL MCH (27.0-31.0) pg MCHC (33.0-37.0) g/dL RDW (11.5-14.5) % Plt Count (130-400) K/uL MPV (7.2-11.7) fL Neut % (Auto) (50.0-75.0) % Lymph % (Auto) (20.0-40.0) % [place] % (Auto) (0.0-10.0) % Eos % (Auto) (0.0-4.0) % Baso % (Auto) (0.0-2.0) % Neut # (Auto) (1.8-7.0) K/uL Lymph # (Auto) (1.0-4.3) K/uL [place] # (Auto) (0.0-0.8) K/uL Eos # (Auto) (0.0-0.7) K/uL Baso # (Auto) (0.0-0.2) K/uL Neutrophils % (Manual) (50-75) % Band Neutrophils % (0-2) % Lymphocytes % (Manual) (20-40) % Reactive Lymphs % (0-0) % Monocytes % (Manual) (0-10) % Eosinophils % (Manual) (0-4) % Platelet Estimate (NORMAL) Large Platelets RBC Morphology Anisocytosis (manual) Microcytosis (manual) Macrocytosis (manual) pO2 (30-55) mm/Hg VBG pH (7.32-7.43) VBG pCO2 (40-60) mmHg VBG HCO3 mmol/L VBG Total CO2 (22-28) mmol/L VBG O2 Sat (Calc) (40-65) % VBG Base Excess (0.0-2.0) mmol/L VBG Potassium (3.6-5.2) mmol/L Sodium (132-148) mmol/l Chloride (98-107) mmol/L Glucose (75-110) mg/dl Lactate (0.7-2.1) mmol/L Crit Value Called To Crit Value Called By Crit Value Read Back Blood Gas Notified Time Potassium (3.6-5.2) mmol/L Carbon Dioxide (22-30) mmol/L Anion Gap (10-20) BUN (9-20) mg/dL Creatinine (0.8-1.5) mg/dL Est GFR ( Amer) Est GFR (Non-Af Amer) POC Glucose (mg/dL) 197 H 134 H 147 H (65-110) mg/dL Random Glucose (75-110) mg/dL Calcium (8.6-10.4) mg/dl Phosphorus (2.5-4.5) mg/dL Magnesium (1.6-2.3) mg/dL Total Bilirubin (0.2-1.3) mg/dL AST (17-59) U/L ALT (21-72) U/L Alkaline Phosphatase (38-126) U/L Total Protein (6.3-8.3) g/dL Albumin (3.5-5.0) g/dL Globulin (2.2-3.9) gm/dL Albumin/Globulin Ratio (1.0-2.1) Venous Blood Potassium (3.6-5.2) mmol/L Urine Color (YELLOW) Urine Clarity (Clear) Urine pH (5.0-8.0) Ur Specific [place] (1.003-1.030) Urine Protein (NEGATIVE) mg/dL Urine Glucose (UA) (Normal) mg/dL Urine Ketones (NEGATIVE) mg/dL Urine Blood (NEGATIVE) Urine Nitrate (NEGATIVE) Urine Bilirubin (NEGATIVE) Urine Urobilinogen (0.2-1.0) mg/dL Ur Leukocyte Esterase (Negative) Shelly/uL Urine WBC (Auto) (0-5) /hpf Urine RBC (Auto) (0-3) /hpf Ur Squamous Epith Cells (0-5) /hpf Stool Occult Blood (NEGATIVE) Serum Ketones (NEGATIVE) 11/27/17 11/27/17 11/26/17 Range/Units 01:39 01:03 23:59 WBC (4.8-10.8) K/uL RBC (4.40-5.90) Mil/uL Hgb (12.0-18.0) g/dL Hct (35.0-51.0) % MCV (80.0-94.0) fL MCH (27.0-31.0) pg MCHC (33.0-37.0) g/dL RDW (11.5-14.5) % Plt Count (130-400) K/uL MPV (7.2-11.7) fL Neut % (Auto) (50.0-75.0) % Lymph % (Auto) (20.0-40.0) % [place] % (Auto) (0.0-10.0) % Eos % (Auto) (0.0-4.0) % Baso % (Auto) (0.0-2.0) % Neut # (Auto) (1.8-7.0) K/uL Lymph # (Auto) (1.0-4.3) K/uL [place] # (Auto) (0.0-0.8) K/uL Eos # (Auto) (0.0-0.7) K/uL Baso # (Auto) (0.0-0.2) K/uL Neutrophils % (Manual) (50-75) % Band Neutrophils % (0-2) % Lymphocytes % (Manual) (20-40) % Reactive Lymphs % (0-0) % Monocytes % (Manual) (0-10) % Eosinophils % (Manual) (0-4) % Platelet Estimate (NORMAL) Large Platelets RBC Morphology Anisocytosis (manual) Microcytosis (manual) Macrocytosis (manual) pO2 (30-55) mm/Hg VBG pH (7.32-7.43) VBG pCO2 (40-60) mmHg VBG HCO3 mmol/L VBG Total CO2 (22-28) mmol/L VBG O2 Sat (Calc) (40-65) % VBG Base Excess (0.0-2.0) mmol/L VBG Potassium (3.6-5.2) mmol/L Sodium 138 (132-148) mmol/l Chloride 103 (98-107) mmol/L Glucose (75-110) mg/dl Lactate (0.7-2.1) mmol/L Crit Value Called To Crit Value Called By Crit Value Read Back Blood Gas Notified Time Potassium 3.3 L (3.6-5.2) mmol/L Carbon Dioxide 23 (22-30) mmol/L Anion Gap 15 (10-20) BUN 7 L (9-20) mg/dL Creatinine 0.5 L (0.8-1.5) mg/dL Est GFR ( Amer) > 60 Est GFR (Non-Af Amer) > 60 POC Glucose (mg/dL) 148 H 167 H (65-110) mg/dL Random Glucose 163 H (75-110) mg/dL Calcium 8.1 L (8.6-10.4) mg/dl Phosphorus (2.5-4.5) mg/dL Magnesium (1.6-2.3) mg/dL Total Bilirubin (0.2-1.3) mg/dL AST (17-59) U/L ALT (21-72) U/L Alkaline Phosphatase (38-126) U/L Total Protein (6.3-8.3) g/dL Albumin (3.5-5.0) g/dL Globulin (2.2-3.9) gm/dL Albumin/Globulin Ratio (1.0-2.1) Venous Blood Potassium (3.6-5.2) mmol/L Urine Color (YELLOW) Urine Clarity (Clear) Urine pH (5.0-8.0) Ur Specific [place] (1.003-1.030) Urine Protein (NEGATIVE) mg/dL Urine Glucose (UA) (Normal) mg/dL Urine Ketones (NEGATIVE) mg/dL Urine Blood (NEGATIVE) Urine Nitrate (NEGATIVE) Urine Bilirubin (NEGATIVE) Urine Urobilinogen (0.2-1.0) mg/dL Ur Leukocyte Esterase (Negative) Shelly/uL Urine WBC (Auto) (0-5) /hpf Urine RBC (Auto) (0-3) /hpf Ur Squamous Epith Cells (0-5) /hpf Stool Occult Blood (NEGATIVE) Serum Ketones (NEGATIVE) 11/26/17 11/26/17 11/26/17 Range/Units 23:12 22:01 21:46 WBC (4.8-10.8) K/uL RBC (4.40-5.90) Mil/uL Hgb (12.0-18.0) g/dL Hct (35.0-51.0) % MCV (80.0-94.0) fL MCH (27.0-31.0) pg MCHC (33.0-37.0) g/dL RDW (11.5-14.5) % Plt Count (130-400) K/uL MPV (7.2-11.7) fL Neut % (Auto) (50.0-75.0) % Lymph % (Auto) (20.0-40.0) % [place] % (Auto) (0.0-10.0) % Eos % (Auto) (0.0-4.0) % Baso % (Auto) (0.0-2.0) % Neut # (Auto) (1.8-7.0) K/uL Lymph # (Auto) (1.0-4.3) K/uL [place] # (Auto) (0.0-0.8) K/uL Eos # (Auto) (0.0-0.7) K/uL Baso # (Auto) (0.0-0.2) K/uL Neutrophils % (Manual) (50-75) % Band Neutrophils % (0-2) % Lymphocytes % (Manual) (20-40) % Reactive Lymphs % (0-0) % Monocytes % (Manual) (0-10) % Eosinophils % (Manual) (0-4) % Platelet Estimate (NORMAL) Large Platelets RBC Morphology Anisocytosis (manual) Microcytosis (manual) Macrocytosis (manual) pO2 (30-55) mm/Hg VBG pH (7.32-7.43) VBG pCO2 (40-60) mmHg VBG HCO3 mmol/L VBG Total CO2 (22-28) mmol/L VBG O2 Sat (Calc) (40-65) % VBG Base Excess (0.0-2.0) mmol/L VBG Potassium (3.6-5.2) mmol/L Sodium 137 (132-148) mmol/l Chloride 100 (98-107) mmol/L Glucose (75-110) mg/dl Lactate (0.7-2.1) mmol/L Crit Value Called To Crit Value Called By Crit Value Read Back Blood Gas Notified Time Potassium 3.6 (3.6-5.2) mmol/L Carbon Dioxide 21 L (22-30) mmol/L Anion Gap 19 (10-20) BUN 8 L (9-20) mg/dL Creatinine 0.6 L (0.8-1.5) mg/dL Est GFR ( Amer) > 60 Est GFR (Non-Af Amer) > 60 POC Glucose (mg/dL) 213 H 261 H (65-110) mg/dL Random Glucose 239 H (75-110) mg/dL Calcium 8.5 L (8.6-10.4) mg/dl Phosphorus (2.5-4.5) mg/dL Magnesium (1.6-2.3) mg/dL Total Bilirubin (0.2-1.3) mg/dL AST (17-59) U/L ALT (21-72) U/L Alkaline Phosphatase (38-126) U/L Total Protein (6.3-8.3) g/dL Albumin (3.5-5.0) g/dL Globulin (2.2-3.9) gm/dL Albumin/Globulin Ratio (1.0-2.1) Venous Blood Potassium (3.6-5.2) mmol/L Urine Color (YELLOW) Urine Clarity (Clear) Urine pH (5.0-8.0) Ur Specific [place] (1.003-1.030) Urine Protein (NEGATIVE) mg/dL Urine Glucose (UA) (Normal) mg/dL Urine Ketones (NEGATIVE) mg/dL Urine Blood (NEGATIVE) Urine Nitrate (NEGATIVE) Urine Bilirubin (NEGATIVE) Urine Urobilinogen (0.2-1.0) mg/dL Ur Leukocyte Esterase (Negative) Shelly/uL Urine WBC (Auto) (0-5) /hpf Urine RBC (Auto) (0-3) /hpf Ur Squamous Epith Cells (0-5) /hpf Stool Occult Blood (NEGATIVE) Serum Ketones (NEGATIVE) 11/26/17 11/26/17 11/26/17 Range/Units 21:04 20:13 18:53 WBC (4.8-10.8) K/uL RBC (4.40-5.90) Mil/uL Hgb (12.0-18.0) g/dL Hct (35.0-51.0) % MCV (80.0-94.0) fL MCH (27.0-31.0) pg MCHC (33.0-37.0) g/dL RDW (11.5-14.5) % Plt Count (130-400) K/uL MPV (7.2-11.7) fL Neut % (Auto) (50.0-75.0) % Lymph % (Auto) (20.0-40.0) % [place] % (Auto) (0.0-10.0) % Eos % (Auto) (0.0-4.0) % Baso % (Auto) (0.0-2.0) % Neut # (Auto) (1.8-7.0) K/uL Lymph # (Auto) (1.0-4.3) K/uL [place] # (Auto) (0.0-0.8) K/uL Eos # (Auto) (0.0-0.7) K/uL Baso # (Auto) (0.0-0.2) K/uL Neutrophils % (Manual) (50-75) % Band Neutrophils % (0-2) % Lymphocytes % (Manual) (20-40) % Reactive Lymphs % (0-0) % Monocytes % (Manual) (0-10) % Eosinophils % (Manual) (0-4) % Platelet Estimate (NORMAL) Large Platelets RBC Morphology Anisocytosis (manual) Microcytosis (manual) Macrocytosis (manual) pO2 (30-55) mm/Hg VBG pH (7.32-7.43) VBG pCO2 (40-60) mmHg VBG HCO3 mmol/L VBG Total CO2 (22-28) mmol/L VBG O2 Sat (Calc) (40-65) % VBG Base Excess (0.0-2.0) mmol/L VBG Potassium (3.6-5.2) mmol/L Sodium (132-148) mmol/l Chloride (98-107) mmol/L Glucose (75-110) mg/dl Lactate (0.7-2.1) mmol/L Crit Value Called To Crit Value Called By Crit Value Read Back Blood Gas Notified Time Potassium (3.6-5.2) mmol/L Carbon Dioxide (22-30) mmol/L Anion Gap (10-20) BUN (9-20) mg/dL Creatinine (0.8-1.5) mg/dL Est GFR ( Amer) Est GFR (Non-Af Amer) POC Glucose (mg/dL) 238 H 279 H (65-110) mg/dL Random Glucose (75-110) mg/dL Calcium (8.6-10.4) mg/dl Phosphorus (2.5-4.5) mg/dL Magnesium (1.6-2.3) mg/dL Total Bilirubin (0.2-1.3) mg/dL AST (17-59) U/L ALT (21-72) U/L Alkaline Phosphatase (38-126) U/L Total Protein (6.3-8.3) g/dL Albumin (3.5-5.0) g/dL Globulin (2.2-3.9) gm/dL Albumin/Globulin Ratio (1.0-2.1) Venous Blood Potassium (3.6-5.2) mmol/L Urine Color Colorless (YELLOW) Urine Clarity Clear (Clear) Urine pH 5.0 (5.0-8.0) Ur Specific [place] 1.027 (1.003-1.030) Urine Protein Negative (NEGATIVE) mg/dL Urine Glucose (UA) 3+ H (Normal) mg/dL Urine Ketones 2+ H (NEGATIVE) mg/dL Urine Blood Negative (NEGATIVE) Urine Nitrate Negative (NEGATIVE) Urine Bilirubin Negative (NEGATIVE) Urine Urobilinogen Normal (0.2-1.0) mg/dL Ur Leukocyte Esterase Neg (Negative) Shelly/uL Urine WBC (Auto) < 1 (0-5) /hpf Urine RBC (Auto) < 1 (0-3) /hpf Ur Squamous Epith Cells < 1 (0-5) /hpf Stool Occult Blood (NEGATIVE) Serum Ketones (NEGATIVE) 11/26/17 11/26/17 11/26/17 Range/Units 18:08 17:29 16:51 WBC (4.8-10.8) K/uL RBC (4.40-5.90) Mil/uL Hgb (12.0-18.0) g/dL Hct (35.0-51.0) % MCV (80.0-94.0) fL MCH (27.0-31.0) pg MCHC (33.0-37.0) g/dL RDW (11.5-14.5) % Plt Count (130-400) K/uL MPV (7.2-11.7) fL Neut % (Auto) (50.0-75.0) % Lymph % (Auto) (20.0-40.0) % [place] % (Auto) (0.0-10.0) % Eos % (Auto) (0.0-4.0) % Baso % (Auto) (0.0-2.0) % Neut # (Auto) (1.8-7.0) K/uL Lymph # (Auto) (1.0-4.3) K/uL [place] # (Auto) (0.0-0.8) K/uL Eos # (Auto) (0.0-0.7) K/uL Baso # (Auto) (0.0-0.2) K/uL Neutrophils % (Manual) (50-75) % Band Neutrophils % (0-2) % Lymphocytes % (Manual) (20-40) % Reactive Lymphs % (0-0) % Monocytes % (Manual) (0-10) % Eosinophils % (Manual) (0-4) % Platelet Estimate (NORMAL) Large Platelets RBC Morphology Anisocytosis (manual) Microcytosis (manual) Macrocytosis (manual) pO2 (30-55) mm/Hg VBG pH (7.32-7.43) VBG pCO2 (40-60) mmHg VBG HCO3 mmol/L VBG Total CO2 (22-28) mmol/L VBG O2 Sat (Calc) (40-65) % VBG Base Excess (0.0-2.0) mmol/L VBG Potassium (3.6-5.2) mmol/L Sodium 134 (132-148) mmol/l Chloride 92 L (98-107) mmol/L Glucose (75-110) mg/dl Lactate (0.7-2.1) mmol/L Crit Value Called To Crit Value Called By Crit Value Read Back Blood Gas Notified Time Potassium 5.0 (3.6-5.2) mmol/L Carbon Dioxide 11 L* D (22-30) mmol/L Anion Gap 37 H (10-20) BUN 8 L (9-20) mg/dL Creatinine 0.7 L (0.8-1.5) mg/dL Est GFR ( Amer) > 60 Est GFR (Non-Af Amer) > 60 POC Glucose (mg/dL) 409 H* (65-110) mg/dL Random Glucose 557 H* D (75-110) mg/dL Calcium 9.0 (8.6-10.4) mg/dl Phosphorus (2.5-4.5) mg/dL Magnesium (1.6-2.3) mg/dL Total Bilirubin 1.0 (0.2-1.3) mg/dL AST 26 (17-59) U/L ALT 37 (21-72) U/L Alkaline Phosphatase 175 H D (38-126) U/L Total Protein 8.3 (6.3-8.3) g/dL Albumin 4.5 (3.5-5.0) g/dL Globulin 3.8 (2.2-3.9) gm/dL Albumin/Globulin Ratio 1.2 (1.0-2.1) Venous Blood Potassium (3.6-5.2) mmol/L Urine Color (YELLOW) Urine Clarity (Clear) Urine pH (5.0-8.0) Ur Specific [place] (1.003-1.030) Urine Protein (NEGATIVE) mg/dL Urine Glucose (UA) (Normal) mg/dL Urine Ketones (NEGATIVE) mg/dL Urine Blood (NEGATIVE) Urine Nitrate (NEGATIVE) Urine Bilirubin (NEGATIVE) Urine Urobilinogen (0.2-1.0) mg/dL Ur Leukocyte Esterase (Negative) Shelly/uL Urine WBC (Auto) (0-5) /hpf Urine RBC (Auto) (0-3) /hpf Ur Squamous Epith Cells (0-5) /hpf Stool Occult Blood Negative (NEGATIVE) Serum Ketones Moderate (NEGATIVE) 11/26/17 11/26/17 11/26/17 Range/Units 16:40 16:39 15:49 WBC 14.3 H D (4.8-10.8) K/uL RBC 5.09 (4.40-5.90) Mil/uL Hgb 15.0 D (12.0-18.0) g/dL Hct 46.2 (35.0-51.0) % MCV 90.9 D (80.0-94.0) fL MCH 29.5 (27.0-31.0) pg MCHC 32.4 L (33.0-37.0) g/dL RDW 14.4 (11.5-14.5) % Plt Count 286 (130-400) K/uL MPV 9.8 (7.2-11.7) fL Neut % (Auto) 84.3 H (50.0-75.0) % Lymph % (Auto) 7.1 L (20.0-40.0) % [place] % (Auto) 7.9 (0.0-10.0) % Eos % (Auto) 0.1 (0.0-4.0) % Baso % (Auto) 0.6 (0.0-2.0) % Neut # (Auto) 12.1 H (1.8-7.0) K/uL Lymph # (Auto) 1.0 (1.0-4.3) K/uL [place] # (Auto) 1.1 H (0.0-0.8) K/uL Eos # (Auto) 0.0 (0.0-0.7) K/uL Baso # (Auto) 0.1 (0.0-0.2) K/uL Neutrophils % (Manual) 80 H (50-75) % Band Neutrophils % 4 H (0-2) % Lymphocytes % (Manual) 10 L (20-40) % Reactive Lymphs % (0-0) % Monocytes % (Manual) 6 (0-10) % Eosinophils % (Manual) (0-4) % Platelet Estimate Normal (NORMAL) Large Platelets Present RBC Morphology Anisocytosis (manual) Slight Microcytosis (manual) Slight Macrocytosis (manual) Slight pO2 29 L (30-55) mm/Hg VBG pH 7.18 L* (7.32-7.43) VBG pCO2 31 L (40-60) mmHg VBG HCO3 11.2 mmol/L VBG Total CO2 12.6 L (22-28) mmol/L VBG O2 Sat (Calc) 61.9 (40-65) % VBG Base Excess -15.5 L (0.0-2.0) mmol/L VBG Potassium 4.2 (3.6-5.2) mmol/L Sodium 134.0 (132-148) mmol/l Chloride 90.0 L (98-107) mmol/L Glucose 560 H* D (75-110) mg/dl Lactate 3.1 H (0.7-2.1) mmol/L Crit Value Called To Valeria storm Crit Value Called By Luzma manager mac Crit Value Read Back Y Blood Gas Notified Time 1655 Potassium (3.6-5.2) mmol/L Carbon Dioxide (22-30) mmol/L Anion Gap (10-20) BUN (9-20) mg/dL Creatinine (0.8-1.5) mg/dL Est GFR ( Amer) Est GFR (Non-Af Amer) POC Glucose (mg/dL) 490 H* (65-110) mg/dL Random Glucose (75-110) mg/dL Calcium (8.6-10.4) mg/dl Phosphorus (2.5-4.5) mg/dL Magnesium (1.6-2.3) mg/dL Total Bilirubin (0.2-1.3) mg/dL AST (17-59) U/L ALT (21-72) U/L Alkaline Phosphatase (38-126) U/L Total Protein (6.3-8.3) g/dL Albumin (3.5-5.0) g/dL Globulin (2.2-3.9) gm/dL Albumin/Globulin Ratio (1.0-2.1) Venous Blood Potassium 4.2 (3.6-5.2) mmol/L Urine Color (YELLOW) Urine Clarity (Clear) Urine pH (5.0-8.0) Ur Specific [place] (1.003-1.030) Urine Protein (NEGATIVE) mg/dL Urine Glucose (UA) (Normal) mg/dL Urine Ketones (NEGATIVE) mg/dL Urine Blood (NEGATIVE) Urine Nitrate (NEGATIVE) Urine Bilirubin (NEGATIVE) Urine Urobilinogen (0.2-1.0) mg/dL Ur Leukocyte Esterase (Negative) Shelly/uL Urine WBC (Auto) (0-5) /hpf Urine RBC (Auto) (0-3) /hpf Ur Squamous Epith Cells (0-5) /hpf Stool Occult Blood (NEGATIVE) Serum Ketones (NEGATIVE) Laboratory Results - last 24 hr 11/26/17 11/26/17 11/26/17 15:49 16:39 16:40 WBC 14.3 H D RBC 5.09 Hgb 15.0 D Hct 46.2 MCV 90.9 D MCH 29.5 MCHC 32.4 L RDW 14.4 Plt Count 286 MPV 9.8 Neut % (Auto) 84.3 H Lymph % (Auto) 7.1 L [place] % (Auto) 7.9 Eos % (Auto) 0.1 Baso % (Auto) 0.6 Neut # (Auto) 12.1 H Lymph # (Auto) 1.0 [place] # (Auto) 1.1 H Eos # (Auto) 0.0 Baso # (Auto) 0.1 Neutrophils % (Manual) 80 H Band Neutrophils % 4 H Lymphocytes % (Manual) 10 L Reactive Lymphs % Monocytes % (Manual) 6 Eosinophils % (Manual) Platelet Estimate Normal Large Platelets Present RBC Morphology Anisocytosis (manual) Slight Microcytosis (manual) Slight Macrocytosis (manual) Slight pO2 29 L VBG pH 7.18 L* VBG pCO2 31 L VBG HCO3 11.2 VBG Total CO2 12.6 L VBG O2 Sat (Calc) 61.9 VBG Base Excess -15.5 L VBG Potassium 4.2 Sodium 134.0 Chloride 90.0 L Glucose 560 H* D Lactate 3.1 H Crit Value Called To Valeria storm Crit Value Called By Luzma manager mac Crit Value Read Back Y Blood Gas Notified Time 1655 Potassium Carbon Dioxide Anion Gap BUN Creatinine Est GFR ( Amer) Est GFR (Non-Af Amer) POC Glucose (mg/dL) 490 H* Random Glucose Calcium Phosphorus Magnesium Total Bilirubin AST ALT Alkaline Phosphatase Total Protein Albumin Globulin Albumin/Globulin Ratio Venous Blood Potassium 4.2 Urine Color Urine Clarity Urine pH Ur Specific [place] Urine Protein Urine Glucose (UA) Urine Ketones Urine Blood Urine Nitrate Urine Bilirubin Urine Urobilinogen Ur Leukocyte Esterase Urine WBC (Auto) Urine RBC (Auto) Ur Squamous Epith Cells Stool Occult Blood Serum Ketones 11/26/17 11/26/17 11/26/17 16:51 17:29 18:08 WBC RBC Hgb Hct MCV MCH MCHC RDW Plt Count MPV Neut % (Auto) Lymph % (Auto) [place] % (Auto) Eos % (Auto) Baso % (Auto) Neut # (Auto) Lymph # (Auto) [place] # (Auto) Eos # (Auto) Baso # (Auto) Neutrophils % (Manual) Band Neutrophils % Lymphocytes % (Manual) Reactive Lymphs % Monocytes % (Manual) Eosinophils % (Manual) Platelet Estimate Large Platelets RBC Morphology Anisocytosis (manual) Microcytosis (manual) Macrocytosis (manual) pO2 VBG pH VBG pCO2 VBG HCO3 VBG Total CO2 VBG O2 Sat (Calc) VBG Base Excess VBG Potassium Sodium 134 Chloride 92 L Glucose Lactate Crit Value Called To Crit Value Called By Crit Value Read Back Blood Gas Notified Time Potassium 5.0 Carbon Dioxide 11 L* D Anion Gap 37 H BUN 8 L Creatinine 0.7 L Est GFR ( Amer) > 60 Est GFR (Non-Af Amer) > 60 POC Glucose (mg/dL) 409 H* Random Glucose 557 H* D Calcium 9.0 Phosphorus Magnesium Total Bilirubin 1.0 AST 26 ALT 37 Alkaline Phosphatase 175 H D Total Protein 8.3 Albumin 4.5 Globulin 3.8 Albumin/Globulin Ratio 1.2 Venous Blood Potassium Urine Color Urine Clarity Urine pH Ur Specific [place] Urine Protein Urine Glucose (UA) Urine Ketones Urine Blood Urine Nitrate Urine Bilirubin Urine Urobilinogen Ur Leukocyte Esterase Urine WBC (Auto) Urine RBC (Auto) Ur Squamous Epith Cells Stool Occult Blood Negative Serum Ketones Moderate 11/26/17 11/26/17 11/26/17 18:53 20:13 21:04 WBC RBC Hgb Hct MCV MCH MCHC RDW Plt Count MPV Neut % (Auto) Lymph % (Auto) [place] % (Auto) Eos % (Auto) Baso % (Auto) Neut # (Auto) Lymph # (Auto) [place] # (Auto) Eos # (Auto) Baso # (Auto) Neutrophils % (Manual) Band Neutrophils % Lymphocytes % (Manual) Reactive Lymphs % Monocytes % (Manual) Eosinophils % (Manual) Platelet Estimate Large Platelets RBC Morphology Anisocytosis (manual) Microcytosis (manual) Macrocytosis (manual) pO2 VBG pH VBG pCO2 VBG HCO3 VBG Total CO2 VBG O2 Sat (Calc) VBG Base Excess VBG Potassium Sodium Chloride Glucose Lactate Crit Value Called To Crit Value Called By Crit Value Read Back Blood Gas Notified Time Potassium Carbon Dioxide Anion Gap BUN Creatinine Est GFR ( Amer) Est GFR (Non-Af Amer) POC Glucose (mg/dL) 279 H 238 H Random Glucose Calcium Phosphorus Magnesium Total Bilirubin AST ALT Alkaline Phosphatase Total Protein Albumin Globulin Albumin/Globulin Ratio Venous Blood Potassium Urine Color Colorless Urine Clarity Clear Urine pH 5.0 Ur Specific [place] 1.027 Urine Protein Negative Urine Glucose (UA) 3+ H Urine Ketones 2+ H Urine Blood Negative Urine Nitrate Negative Urine Bilirubin Negative Urine Urobilinogen Normal Ur Leukocyte Esterase Neg Urine WBC (Auto) < 1 Urine RBC (Auto) < 1 Ur Squamous Epith Cells < 1 Stool Occult Blood Serum Ketones 11/26/17 11/26/17 11/26/17 21:46 22:01 23:12 WBC RBC Hgb Hct MCV MCH MCHC RDW Plt Count MPV Neut % (Auto) Lymph % (Auto) [place] % (Auto) Eos % (Auto) Baso % (Auto) Neut # (Auto) Lymph # (Auto) [place] # (Auto) Eos # (Auto) Baso # (Auto) Neutrophils % (Manual) Band Neutrophils % Lymphocytes % (Manual) Reactive Lymphs % Monocytes % (Manual) Eosinophils % (Manual) Platelet Estimate Large Platelets RBC Morphology Anisocytosis (manual) Microcytosis (manual) Macrocytosis (manual) pO2 VBG pH VBG pCO2 VBG HCO3 VBG Total CO2 VBG O2 Sat (Calc) VBG Base Excess VBG Potassium Sodium 137 Chloride 100 Glucose Lactate Crit Value Called To Crit Value Called By Crit Value Read Back Blood Gas Notified Time Potassium 3.6 Carbon Dioxide 21 L Anion Gap 19 BUN 8 L Creatinine 0.6 L Est GFR ( Amer) > 60 Est GFR (Non-Af Amer) > 60 POC Glucose (mg/dL) 261 H 213 H Random Glucose 239 H Calcium 8.5 L Phosphorus Magnesium Total Bilirubin AST ALT Alkaline Phosphatase Total Protein Albumin Globulin Albumin/Globulin Ratio Venous Blood Potassium Urine Color Urine Clarity Urine pH Ur Specific [place] Urine Protein Urine Glucose (UA) Urine Ketones Urine Blood Urine Nitrate Urine Bilirubin Urine Urobilinogen Ur Leukocyte Esterase Urine WBC (Auto) Urine RBC (Auto) Ur Squamous Epith Cells Stool Occult Blood Serum Ketones 11/26/17 11/27/17 11/27/17 23:59 01:03 01:39 WBC RBC Hgb Hct MCV MCH MCHC RDW Plt Count MPV Neut % (Auto) Lymph % (Auto) [place] % (Auto) Eos % (Auto) Baso % (Auto) Neut # (Auto) Lymph # (Auto) [place] # (Auto) Eos # (Auto) Baso # (Auto) Neutrophils % (Manual) Band Neutrophils % Lymphocytes % (Manual) Reactive Lymphs % Monocytes % (Manual) Eosinophils % (Manual) Platelet Estimate Large Platelets RBC Morphology Anisocytosis (manual) Microcytosis (manual) Macrocytosis (manual) pO2 VBG pH VBG pCO2 VBG HCO3 VBG Total CO2 VBG O2 Sat (Calc) VBG Base Excess VBG Potassium Sodium 138 Chloride 103 Glucose Lactate Crit Value Called To Crit Value Called By Crit Value Read Back Blood Gas Notified Time Potassium 3.3 L Carbon Dioxide 23 Anion Gap 15 BUN 7 L Creatinine 0.5 L Est GFR ( Amer) > 60 Est GFR (Non-Af Amer) > 60 POC Glucose (mg/dL) 167 H 148 H Random Glucose 163 H Calcium 8.1 L Phosphorus Magnesium Total Bilirubin AST ALT Alkaline Phosphatase Total Protein Albumin Globulin Albumin/Globulin Ratio Venous Blood Potassium Urine Color Urine Clarity Urine pH Ur Specific [place] Urine Protein Urine Glucose (UA) Urine Ketones Urine Blood Urine Nitrate Urine Bilirubin Urine Urobilinogen Ur Leukocyte Esterase Urine WBC (Auto) Urine RBC (Auto) Ur Squamous Epith Cells Stool Occult Blood Serum Ketones 11/27/17 11/27/17 11/27/17 02:03 03:24 04:06 WBC RBC Hgb Hct MCV MCH MCHC RDW Plt Count MPV Neut % (Auto) Lymph % (Auto) [place] % (Auto) Eos % (Auto) Baso % (Auto) Neut # (Auto) Lymph # (Auto) [place] # (Auto) Eos # (Auto) Baso # (Auto) Neutrophils % (Manual) Band Neutrophils % Lymphocytes % (Manual) Reactive Lymphs % Monocytes % (Manual) Eosinophils % (Manual) Platelet Estimate Large Platelets RBC Morphology Anisocytosis (manual) Microcytosis (manual) Macrocytosis (manual) pO2 VBG pH VBG pCO2 VBG HCO3 VBG Total CO2 VBG O2 Sat (Calc) VBG Base Excess VBG Potassium Sodium Chloride Glucose Lactate Crit Value Called To Crit Value Called By Crit Value Read Back Blood Gas Notified Time Potassium Carbon Dioxide Anion Gap BUN Creatinine Est GFR ( Amer) Est GFR (Non-Af Amer) POC Glucose (mg/dL) 147 H 134 H 197 H Random Glucose Calcium Phosphorus Magnesium Total Bilirubin AST ALT Alkaline Phosphatase Total Protein Albumin Globulin Albumin/Globulin Ratio Venous Blood Potassium Urine Color Urine Clarity Urine pH Ur Specific [place] Urine Protein Urine Glucose (UA) Urine Ketones Urine Blood Urine Nitrate Urine Bilirubin Urine Urobilinogen Ur Leukocyte Esterase Urine WBC (Auto) Urine RBC (Auto) Ur Squamous Epith Cells Stool Occult Blood Serum Ketones 11/27/17 11/27/17 11/27/17 05:56 05:56 07:55 WBC 12.9 H RBC 4.50 Hgb 13.2 Hct 39.4 MCV 87.6 D MCH 29.4 MCHC 33.6 RDW 13.8 Plt Count 269 MPV 8.6 Neut % (Auto) 80.5 H Lymph % (Auto) 8.1 L [place] % (Auto) 10.3 H Eos % (Auto) 0.8 Baso % (Auto) 0.3 Neut # (Auto) 10.4 H Lymph # (Auto) 1.0 [place] # (Auto) 1.3 H Eos # (Auto) 0.1 Baso # (Auto) 0.0 Neutrophils % (Manual) 73 Band Neutrophils % 9 H Lymphocytes % (Manual) 6 L Reactive Lymphs % 1 H Monocytes % (Manual) 10 Eosinophils % (Manual) 1 Platelet Estimate Normal Large Platelets RBC Morphology Normal Anisocytosis (manual) Microcytosis (manual) Macrocytosis (manual) pO2 VBG pH VBG pCO2 VBG HCO3 VBG Total CO2 VBG O2 Sat (Calc) VBG Base Excess VBG Potassium Sodium 138 Chloride 103 Glucose Lactate Crit Value Called To Crit Value Called By Crit Value Read Back Blood Gas Notified Time Potassium 3.2 L Carbon Dioxide 24 Anion Gap 14 BUN 7 L Creatinine 0.6 L Est GFR ( Amer) > 60 Est GFR (Non-Af Amer) > 60 POC Glucose (mg/dL) 156 H Random Glucose 131 H Calcium 8.6 Phosphorus 1.8 L Magnesium 2.1 Total Bilirubin 0.5 AST 18 ALT 22 Alkaline Phosphatase 108 Total Protein 6.9 Albumin 3.4 L D Globulin 3.5 Albumin/Globulin Ratio 1.0 Venous Blood Potassium Urine Color Urine Clarity Urine pH Ur Specific [place] Urine Protein Urine Glucose (UA) Urine Ketones Urine Blood Urine Nitrate Urine Bilirubin Urine Urobilinogen Ur Leukocyte Esterase Urine WBC (Auto) Urine RBC (Auto) Ur Squamous Epith Cells Stool Occult Blood Serum Ketones Fingerstick Blood Sugar Results: 197 Critical Care Progress Note - Nutrition Nutrition: Nutrition Category Date Time Status Heart Healthy Diet [DIET] Diets 11/27/17 Breakfast Active Assessment/Plan - Assessment and Plan (Free Text) Assessment: This is a 27 year old male with PMHx DM 1, Crohn's disease, Marijuana abuse, bipolar disorder, and depression who presented to the hospital for dyspnea and blood in the stool. Patient found in DKA and anion gap was corrected. Patient for transfer to med-surg. Neuro Awake, verbal Cardio No active issues Pulm Saturating well GI History of Crohn's Dz GI consult on board Surgery consult on board Endocrine Off of insulin drip Now on SC Novolog sliding scale Infectious Diseases Cipro 400 mg IV Q12H Flagyl 250 mg IV Q8H Prophylaxis SCDs Protonix 40 mg IV daily Disposition: Transfer to med-surg Discussed with Dr. Sloan <Brannon Sloan - Last Filed: 12/04/17 08:53> CCU Objective - Patient Studies Lab Studies: Microbiology Studies 11/29/17 15:00 Gram Stain - Final Rectum Tissue Culture - Final Beta Hemolytic Strep Group B Shilpa Albicans Critical Care Progress Note - Nutrition Nutrition: Nutrition Category Date Time Status Regular Diet [DIET] Diets 11/29/17 Dinner Active Attending/Attestation - Attestation I have personally seen and examined this patient.: Yes I have fully participated in the care of the patient.: Yes I have reviewed all pertinent clinical information: Yes
--- NOTE | 2017-11-27 13:34 | CP.PCM.CON ---
<Jagdish Valero - Last Filed: 11/27/17 13:39> History of Present Illness - History of Present Illness History of Present Illness: PGY5 GI Fellow Consult Note Patient is a 27yo male with PMHx significant for Crohn's disease (dx at age 20, not on any therapy presently or previously), Type 1 diabetes mellitus, Bipolar disorder, schizophrenia, marijuana/cocaine use who presented to the ED with abdominal/rectal pain and diarrhea. For two days the patient has had worsening RLQ abdominal pain along with perianal pain but cannot pinpoint any particular inciting event. He developed diarrhea with dark, bloody stools in the last 24 hours and states he has recently passed this in his bedside commode. Admits to similar pain in the past and has had intermittent episodes since his diagnosis of crohn's disease 7 years ago. He has never been on chronic therapy to treat his CD and is currently not on any medications. States that his GI physician ( Dr Veloz from [facility] [place]) recommended he wait 6 months prior to initiating any medications. On arrival in the ED he was noted to be hyperglycemic with glucose of ~500, was started on insulin gtt and has since been transitioned to subcutaneous injections. Denies any new medications. Continues to smoke marijuana regularly to "treat his symptoms". He is currently demanding morphine. 12 system ROS performed and negative except where stated. PMHx: See HPI PSHx: Discussed with patient and he denies FHx: Discussed with patient and he denies any significant family history Social: +regular Marijuana use, prior cocaine use, denies EtOH or tobacco use Endo: States he had 2 EGD and 2 colonoscopy in July - One EGD in our EMR from 07/30 showed LA Class C esophagitis, gastritis/duodenitis Past Patient History - Infectious Disease Hx of Infectious Diseases: None - Past Medical History & Family History Past Medical History?: Yes - Past Social History Smoking Status: Current Some Days Smoker - CARDIAC Hx Hypertension: Yes - PULMONARY Hx Respiratory Disorders: No - NEUROLOGICAL Other/Comment: Neuropathy - HEENT Hx HEENT Problems: Yes 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) - RENAL Hx Chronic Kidney Disease: No - ENDOCRINE/METABOLIC Hx Endocrine Disorders: Yes Hx Diabetes Mellitus Type 1: Yes (insulin dependent) - HEMATOLOGICAL/ONCOLOGICAL Hx Human Immunodeficiency Virus (HIV): No - INTEGUMENTARY Hx Dermatological Problems: No - MUSCULOSKELETAL/RHEUMATOLOGICAL Hx Musculoskeletal Disorders: No Hx Falls: No - GASTROINTESTINAL Hx Crohn's Disease: Yes - GENITOURINARY/GYNECOLOGICAL Hx Genitourinary Disorders: No - PSYCHIATRIC Hx Anxiety: Yes Hx Bipolar Disorder: Yes Hx Depression: Yes Hx Schizophrenia: Yes Hx Substance Use: Yes (smokes marijuana occasionally for chronic pain) - SURGICAL HISTORY Hx Surgeries: Yes Other/Comment: wired Jaw - ANESTHESIA Hx Anesthesia: Yes Hx Anesthesia Reactions: No Hx Malignant Hyperthermia: No Meds Allergies/Adverse Reactions: Allergies Allergy/AdvReac Type Severity Reaction Status Date / Time No Known Allergies Allergy Verified 11/26/17 16:08 - Medications Medications: Current Medications Diphenhydramine HCl (Benadryl) 25 mg IVP Q6 PRN PRN Reason: Insomnia Last Admin: 11/26/17 22:00 Dose: 25 mg Home Med (Seroquel) 1 tab PO DAILY [facility] Home Med (Trazodone) 1 tab PO DAILY [facility] Ciprofloxacin (Cipro 400mg/200ml Dsw) 400 mg in 200 mls @ 133 mls/hr IVPB Q12H JOHANA PRN Reason: Protocol Last Admin: 11/27/17 08:30 Dose: 133 mls/hr Metronidazole 250 mg/ (Miscellaneous) 50 mls @ 100 mls/hr IVPB Q8 JOHANA PRN Reason: Protocol Last Admin: 11/27/17 06:00 Dose: 100 mls/hr Insulin Aspart (Novolog) 0 unit SC Q4 JOHANA PRN Reason: Protocol Last Admin: 11/27/17 12:08 Dose: 4 unit Ketorolac Tromethamine (Toradol) 15 mg IVP Q6 PRN PRN Reason: Pain, moderate (4-7) Ketorolac Tromethamine (Toradol) 30 mg IVP Q6 PRN PRN Reason: Pain, severe (8-10) Pantoprazole Sodium (Protonix Inj) 40 mg IVP DAILY [facility] Last Admin: 11/27/17 09:29 Dose: 40 mg Physical Exam - Constitutional Appears: Non-toxic, No Acute Distress - Eye Exam Eye Exam: EOMI, PERRL - ENT Exam ENT Exam: Mucous Membranes Moist - Respiratory Exam Respiratory Exam: Clear to Auscultation Bilateral. absent: Rales, Rhonchi, Wheezes - Cardiovascular Exam Cardiovascular Exam: RRR, +S1, +S2 - GI/Abdominal Exam GI & Abdominal Exam: Normal Bowel Sounds, Soft, Tenderness (RLQ). absent: Distended, Firm, Guarding, Organomegaly, Rigid - Rectal Exam Additional comments: refused internal examination; perianal fluctuance noted - Extremities Exam Extremities exam: Positive for: normal inspection. Negative for: pedal edema - Neurological Exam Neurological exam: Alert, Oriented x3 - Psychiatric Exam Psychiatric exam: Anxious - Skin Skin Exam: Dry, Warm Additional comments: scratches on arms B/L - Additional Findings Additional findings: Commode at bedside with loose, brown stool noted Results - Vital Signs Recent Vital Signs: Last Vital Signs Temp 98.5 F 11/27/17 08:00 Pulse 86 11/27/17 08:10 Resp 19 11/27/17 08:10 BP 93/56 L 11/27/17 08:00 Pulse Ox 90 L 11/27/17 08:10 - Labs Result Diagrams: 11/27/17 05:56 11/27/17 05:56 Labs: Laboratory Results - last 24 hr 11/26/17 11/26/17 11/26/17 15:49 16:39 16:40 WBC 14.3 H D RBC 5.09 Hgb 15.0 D Hct 46.2 MCV 90.9 D MCH 29.5 MCHC 32.4 L RDW 14.4 Plt Count 286 MPV 9.8 Neut % (Auto) 84.3 H Lymph % (Auto) 7.1 L Evangeline % (Auto) 7.9 Eos % (Auto) 0.1 Baso % (Auto) 0.6 Neut # (Auto) 12.1 H Lymph # (Auto) 1.0 Evangeline # (Auto) 1.1 H Eos # (Auto) 0.0 Baso # (Auto) 0.1 Neutrophils % (Manual) 80 H Band Neutrophils % 4 H Lymphocytes % (Manual) 10 L Reactive Lymphs % Monocytes % (Manual) 6 Eosinophils % (Manual) Platelet Estimate Normal Large Platelets Present RBC Morphology Anisocytosis (manual) Slight Microcytosis (manual) Slight Macrocytosis (manual) Slight pO2 29 L VBG pH 7.18 L* VBG pCO2 31 L VBG HCO3 11.2 VBG Total CO2 12.6 L VBG O2 Sat (Calc) 61.9 VBG Base Excess -15.5 L VBG Potassium 4.2 Sodium 134.0 Chloride 90.0 L Glucose 560 H* D Lactate 3.1 H Crit Value Called To Valeria storm Crit Value Called By Luzma flight purser Crit Value Read Back Y Blood Gas Notified Time 1655 Potassium Carbon Dioxide Anion Gap BUN Creatinine Est GFR ( Amer) Est GFR (Non-Af Amer) POC Glucose (mg/dL) 490 H* Random Glucose Calcium Phosphorus Magnesium Total Bilirubin AST ALT Alkaline Phosphatase Total Protein Albumin Globulin Albumin/Globulin Ratio Venous Blood Potassium 4.2 Urine Color Urine Clarity Urine pH Ur Specific [place] Urine Protein Urine Glucose (UA) Urine Ketones Urine Blood Urine Nitrate Urine Bilirubin Urine Urobilinogen Ur Leukocyte Esterase Urine WBC (Auto) Urine RBC (Auto) Ur Squamous Epith Cells Stool Occult Blood Serum Ketones 11/26/17 11/26/17 11/26/17 16:51 17:29 18:08 WBC RBC Hgb Hct MCV MCH MCHC RDW Plt Count MPV Neut % (Auto) Lymph % (Auto) Evangeline % (Auto) Eos % (Auto) Baso % (Auto) Neut # (Auto) Lymph # (Auto) Evangeline # (Auto) Eos # (Auto) Baso # (Auto) Neutrophils % (Manual) Band Neutrophils % Lymphocytes % (Manual) Reactive Lymphs % Monocytes % (Manual) Eosinophils % (Manual) Platelet Estimate Large Platelets RBC Morphology Anisocytosis (manual) Microcytosis (manual) Macrocytosis (manual) pO2 VBG pH VBG pCO2 VBG HCO3 VBG Total CO2 VBG O2 Sat (Calc) VBG Base Excess VBG Potassium Sodium 134 Chloride 92 L Glucose Lactate Crit Value Called To Crit Value Called By Crit Value Read Back Blood Gas Notified Time Potassium 5.0 Carbon Dioxide 11 L* D Anion Gap 37 H BUN 8 L Creatinine 0.7 L Est GFR ( Amer) > 60 Est GFR (Non-Af Amer) > 60 POC Glucose (mg/dL) 409 H* Random Glucose 557 H* D Calcium 9.0 Phosphorus Magnesium Total Bilirubin 1.0 AST 26 ALT 37 Alkaline Phosphatase 175 H D Total Protein 8.3 Albumin 4.5 Globulin 3.8 Albumin/Globulin Ratio 1.2 Venous Blood Potassium Urine Color Urine Clarity Urine pH Ur Specific [place] Urine Protein Urine Glucose (UA) Urine Ketones Urine Blood Urine Nitrate Urine Bilirubin Urine Urobilinogen Ur Leukocyte Esterase Urine WBC (Auto) Urine RBC (Auto) Ur Squamous Epith Cells Stool Occult Blood Negative Serum Ketones Moderate 11/26/17 11/26/17 11/26/17 18:53 20:13 21:04 WBC RBC Hgb Hct MCV MCH MCHC RDW Plt Count MPV Neut % (Auto) Lymph % (Auto) Evangeline % (Auto) Eos % (Auto) Baso % (Auto) Neut # (Auto) Lymph # (Auto) Evangeline # (Auto) Eos # (Auto) Baso # (Auto) Neutrophils % (Manual) Band Neutrophils % Lymphocytes % (Manual) Reactive Lymphs % Monocytes % (Manual) Eosinophils % (Manual) Platelet Estimate Large Platelets RBC Morphology Anisocytosis (manual) Microcytosis (manual) Macrocytosis (manual) pO2 VBG pH VBG pCO2 VBG HCO3 VBG Total CO2 VBG O2 Sat (Calc) VBG Base Excess VBG Potassium Sodium Chloride Glucose Lactate Crit Value Called To Crit Value Called By Crit Value Read Back Blood Gas Notified Time Potassium Carbon Dioxide Anion Gap BUN Creatinine Est GFR ( Amer) Est GFR (Non-Af Amer) POC Glucose (mg/dL) 279 H 238 H Random Glucose Calcium Phosphorus Magnesium Total Bilirubin AST ALT Alkaline Phosphatase Total Protein Albumin Globulin Albumin/Globulin Ratio Venous Blood Potassium Urine Color Colorless Urine Clarity Clear Urine pH 5.0 Ur Specific [place] 1.027 Urine Protein Negative Urine Glucose (UA) 3+ H Urine Ketones 2+ H Urine Blood Negative Urine Nitrate Negative Urine Bilirubin Negative Urine Urobilinogen Normal Ur Leukocyte Esterase Neg Urine WBC (Auto) < 1 Urine RBC (Auto) < 1 Ur Squamous Epith Cells < 1 Stool Occult Blood Serum Ketones 11/26/17 11/26/17 11/26/17 21:46 22:01 23:12 WBC RBC Hgb Hct MCV MCH MCHC RDW Plt Count MPV Neut % (Auto) Lymph % (Auto) Evangeline % (Auto) Eos % (Auto) Baso % (Auto) Neut # (Auto) Lymph # (Auto) Evangeline # (Auto) Eos # (Auto) Baso # (Auto) Neutrophils % (Manual) Band Neutrophils % Lymphocytes % (Manual) Reactive Lymphs % Monocytes % (Manual) Eosinophils % (Manual) Platelet Estimate Large Platelets RBC Morphology Anisocytosis (manual) Microcytosis (manual) Macrocytosis (manual) pO2 VBG pH VBG pCO2 VBG HCO3 VBG Total CO2 VBG O2 Sat (Calc) VBG Base Excess VBG Potassium Sodium 137 Chloride 100 Glucose Lactate Crit Value Called To Crit Value Called By Crit Value Read Back Blood Gas Notified Time Potassium 3.6 Carbon Dioxide 21 L Anion Gap 19 BUN 8 L Creatinine 0.6 L Est GFR ( Amer) > 60 Est GFR (Non-Af Amer) > 60 POC Glucose (mg/dL) 261 H 213 H Random Glucose 239 H Calcium 8.5 L Phosphorus Magnesium Total Bilirubin AST ALT Alkaline Phosphatase Total Protein Albumin Globulin Albumin/Globulin Ratio Venous Blood Potassium Urine Color Urine Clarity Urine pH Ur Specific [place] Urine Protein Urine Glucose (UA) Urine Ketones Urine Blood Urine Nitrate Urine Bilirubin Urine Urobilinogen Ur Leukocyte Esterase Urine WBC (Auto) Urine RBC (Auto) Ur Squamous Epith Cells Stool Occult Blood Serum Ketones 11/26/17 11/27/17 11/27/17 23:59 01:03 01:39 WBC RBC Hgb Hct MCV MCH MCHC RDW Plt Count MPV Neut % (Auto) Lymph % (Auto) Evangeline % (Auto) Eos % (Auto) Baso % (Auto) Neut # (Auto) Lymph # (Auto) Evangeline # (Auto) Eos # (Auto) Baso # (Auto) Neutrophils % (Manual) Band Neutrophils % Lymphocytes % (Manual) Reactive Lymphs % Monocytes % (Manual) Eosinophils % (Manual) Platelet Estimate Large Platelets RBC Morphology Anisocytosis (manual) Microcytosis (manual) Macrocytosis (manual) pO2 VBG pH VBG pCO2 VBG HCO3 VBG Total CO2 VBG O2 Sat (Calc) VBG Base Excess VBG Potassium Sodium 138 Chloride 103 Glucose Lactate Crit Value Called To Crit Value Called By Crit Value Read Back Blood Gas Notified Time Potassium 3.3 L Carbon Dioxide 23 Anion Gap 15 BUN 7 L Creatinine 0.5 L Est GFR ( Amer) > 60 Est GFR (Non-Af Amer) > 60 POC Glucose (mg/dL) 167 H 148 H Random Glucose 163 H Calcium 8.1 L Phosphorus Magnesium Total Bilirubin AST ALT Alkaline Phosphatase Total Protein Albumin Globulin Albumin/Globulin Ratio Venous Blood Potassium Urine Color Urine Clarity Urine pH Ur Specific [place] Urine Protein Urine Glucose (UA) Urine Ketones Urine Blood Urine Nitrate Urine Bilirubin Urine Urobilinogen Ur Leukocyte Esterase Urine WBC (Auto) Urine RBC (Auto) Ur Squamous Epith Cells Stool Occult Blood Serum Ketones 11/27/17 11/27/1711/27/18 02:03 03:24 04:06 WBC RBC Hgb Hct MCV MCH MCHC RDW Plt Count MPV Neut % (Auto) Lymph % (Auto) Evangeline % (Auto) Eos % (Auto) Baso % (Auto) Neut # (Auto) Lymph # (Auto) Evangeline # (Auto) Eos # (Auto) Baso # (Auto) Neutrophils % (Manual) Band Neutrophils % Lymphocytes % (Manual) Reactive Lymphs % Monocytes % (Manual) Eosinophils % (Manual) Platelet Estimate Large Platelets RBC Morphology Anisocytosis (manual) Microcytosis (manual) Macrocytosis (manual) pO2 VBG pH VBG pCO2 VBG HCO3 VBG Total CO2 VBG O2 Sat (Calc) VBG Base Excess VBG Potassium Sodium Chloride Glucose Lactate Crit Value Called To Crit Value Called By Crit Value Read Back Blood Gas Notified Time Potassium Carbon Dioxide Anion Gap BUN Creatinine Est GFR ( Amer) Est GFR (Non-Af Amer) POC Glucose (mg/dL) 147 H 134 H 197 H Random Glucose Calcium Phosphorus Magnesium Total Bilirubin AST ALT Alkaline Phosphatase Total Protein Albumin Globulin Albumin/Globulin Ratio Venous Blood Potassium Urine Color Urine Clarity Urine pH Ur Specific [place] Urine Protein Urine Glucose (UA) Urine Ketones Urine Blood Urine Nitrate Urine Bilirubin Urine Urobilinogen Ur Leukocyte Esterase Urine WBC (Auto) Urine RBC (Auto) Ur Squamous Epith Cells Stool Occult Blood Serum Ketones 11/27/17 11/27/17 11/27/17 05:56 05:56 07:55 WBC 12.9 H RBC 4.50 Hgb 13.2 Hct 39.4 MCV 87.6 D MCH 29.4 MCHC 33.6 RDW 13.8 Plt Count 269 MPV 8.6 Neut % (Auto) 80.5 H Lymph % (Auto) 8.1 L Evangeline % (Auto) 10.3 H Eos % (Auto) 0.8 Baso % (Auto) 0.3 Neut # (Auto) 10.4 H Lymph # (Auto) 1.0 Evangeline # (Auto) 1.3 H Eos # (Auto) 0.1 Baso # (Auto) 0.0 Neutrophils % (Manual) 73 Band Neutrophils % 9 H Lymphocytes % (Manual) 6 L Reactive Lymphs % 1 H Monocytes % (Manual) 10 Eosinophils % (Manual) 1 Platelet Estimate Normal Large Platelets RBC Morphology Normal Anisocytosis (manual) Microcytosis (manual) Macrocytosis (manual) pO2 VBG pH VBG pCO2 VBG HCO3 VBG Total CO2 VBG O2 Sat (Calc) VBG Base Excess VBG Potassium Sodium 138 Chloride 103 Glucose Lactate Crit Value Called To Crit Value Called By Crit Value Read Back Blood Gas Notified Time Potassium 3.2 L Carbon Dioxide 24 Anion Gap 14 BUN 7 L Creatinine 0.6 L Est GFR ( Amer) > 60 Est GFR (Non-Af Amer) > 60 POC Glucose (mg/dL) 156 H Random Glucose 131 H Calcium 8.6 Phosphorus 1.8 L Magnesium 2.1 Total Bilirubin 0.5 AST 18 ALT 22 Alkaline Phosphatase 108 Total Protein 6.9 Albumin 3.4 L D Globulin 3.5 Albumin/Globulin Ratio 1.0 Venous Blood Potassium Urine Color Urine Clarity Urine pH Ur Specific [place] Urine Protein Urine Glucose (UA) Urine Ketones Urine Blood Urine Nitrate Urine Bilirubin Urine Urobilinogen Ur Leukocyte Esterase Urine WBC (Auto) Urine RBC (Auto) Ur Squamous Epith Cells Stool Occult Blood Serum Ketones 11/27/17 11:54 WBC RBC Hgb Hct MCV MCH MCHC RDW Plt Count MPV Neut % (Auto) Lymph % (Auto) Evangeline % (Auto) Eos % (Auto) Baso % (Auto) Neut # (Auto) Lymph # (Auto) Evangeline # (Auto) Eos # (Auto) Baso # (Auto) Neutrophils % (Manual) Band Neutrophils % Lymphocytes % (Manual) Reactive Lymphs % Monocytes % (Manual) Eosinophils % (Manual) Platelet Estimate Large Platelets RBC Morphology Anisocytosis (manual) Microcytosis (manual) Macrocytosis (manual) pO2 VBG pH VBG pCO2 VBG HCO3 VBG Total CO2 VBG O2 Sat (Calc) VBG Base Excess VBG Potassium Sodium Chloride Glucose Lactate Crit Value Called To Crit Value Called By Crit Value Read Back Blood Gas Notified Time Potassium Carbon Dioxide Anion Gap BUN Creatinine Est GFR ( Amer) Est GFR (Non-Af Amer) POC Glucose (mg/dL) 248 H Random Glucose Calcium Phosphorus Magnesium Total Bilirubin AST ALT Alkaline Phosphatase Total Protein Albumin Globulin Albumin/Globulin Ratio Venous Blood Potassium Urine Color Urine Clarity Urine pH Ur Specific [place] Urine Protein Urine Glucose (UA) Urine Ketones Urine Blood Urine Nitrate Urine Bilirubin Urine Urobilinogen Ur Leukocyte Esterase Urine WBC (Auto) Urine RBC (Auto) Ur Squamous Epith Cells Stool Occult Blood Serum Ketones Assessment & Plan - Assessment and Plan (Free Text) Assessment: Patient is a 27yo male with PMHx significant for Crohn's disease (dx at age 20, not on any therapy presently or previously), Type 1 diabetes mellitus, Bipolar disorder, schizophrenia, marijuana/cocaine use who presented to the ED with abdominal/rectal pain and diarrhea -Perianal pain - suspect perianal abscess -Abdominal pain, R/O Crohn's flare -Hyperglycemia and type 1 diabetes mellitus -Bipolar d/o, schizophrenia -Marijuana use Plan: -Patient nonadherent with medical therapy in house thus far; refusing to drink contrast for CT scan -Demanding narcotic pain medication -Request surgical evaluation of perianal area - may require I&D -Awaiting CT scan to evaluate GI tract for any abnormality -Would benefit from outpatient follow up with his primary supervisor plate forming to initate maintenance therapy for CD -No evidence for acute blood loss from the GI tract at this time - Date & Time Date: 11/27/17 Time: 06:30 <Elidia Duran - Last Filed: 11/27/17 17:50> Meds - Medications Medications: Current Medications Ciprofloxacin (Cipro 400mg/200ml Dsw) 400 mg in 200 mls @ 133 mls/hr IVPB Q12H JOHANA PRN Reason: Protocol Last Admin: 11/27/17 08:30 Dose: 133 mls/hr Metronidazole 250 mg/ (Miscellaneous) 50 mls @ 100 mls/hr IVPB Q8 JOHANA PRN Reason: Protocol Last Admin: 11/27/17 13:22 Dose: 100 mls/hr Insulin Aspart (Novolog) 0 unit SC Q4 JOHANA PRN Reason: Protocol Last Admin: 11/27/17 16:23 Dose: 2 unit Ketorolac Tromethamine (Toradol) 15 mg IVP Q6 PRN PRN Reason: Pain, moderate (4-7) Ketorolac Tromethamine (Toradol) 30 mg IVP Q6 PRN PRN Reason: Pain, severe (8-10) Last Admin: 11/27/17 15:21 Dose: 30 mg Mirtazapine (Remeron) 30 mg PO HS [facility] Pantoprazole Sodium (Protonix Inj) 40 mg IVP DAILY [facility] Last Admin: 11/27/17 09:29 Dose: 40 mg Saccharomyces Boulardii (Florastor) 250 mg PO BID JOHANA Last Admin: 11/27/17 17:01 Dose: 250 mg Results - Vital Signs Recent Vital Signs: Last Vital Signs Temp 98.5 F 11/27/17 08:00 Pulse 86 11/27/17 08:10 Resp 19 11/27/17 08:10 BP 93/56 L 11/27/17 08:00 Pulse Ox 90 L 11/27/17 08:10 - Labs Result Diagrams: 11/27/17 05:56 11/27/17 05:56 Labs: Laboratory Results - last 24 hr 11/26/17 11/26/17 11/26/17 17:29 18:08 18:53 WBC RBC Hgb Hct MCV MCH MCHC RDW Plt Count MPV Neut % (Auto) Lymph % (Auto) Evangeline % (Auto) Eos % (Auto) Baso % (Auto) Neut # (Auto) Lymph # (Auto) Evangeline # (Auto) Eos # (Auto) Baso # (Auto) Neutrophils % (Manual) Band Neutrophils % Lymphocytes % (Manual) Reactive Lymphs % Monocytes % (Manual) Eosinophils % (Manual) Platelet Estimate RBC Morphology Sodium 134 Potassium 5.0 Chloride 92 L Carbon Dioxide 11 L* D Anion Gap 37 H BUN 8 L Creatinine 0.7 L Est GFR ( Amer) > 60 Est GFR (Non-Af Amer) > 60 POC Glucose (mg/dL) 409 H* Random Glucose 557 H* D Calcium 9.0 Phosphorus Magnesium Total Bilirubin 1.0 AST 26 ALT 37 Alkaline Phosphatase 175 H D Total Protein 8.3 Albumin 4.5 Globulin 3.8 Albumin/Globulin Ratio 1.2 Urine Color Colorless Urine Clarity Clear Urine pH 5.0 Ur Specific [place] 1.027 Urine Protein Negative Urine Glucose (UA) 3+ H Urine Ketones 2+ H Urine Blood Negative Urine Nitrate Negative Urine Bilirubin Negative Urine Urobilinogen Normal Ur Leukocyte Esterase Neg Urine WBC (Auto) < 1 Urine RBC (Auto) < 1 Ur Squamous Epith Cells < 1 Urine Opiates Screen Urine Methadone Screen Ur Barbiturates Screen Ur Phencyclidine Scrn Ur Amphetamines Screen U Benzodiazepines Scrn U Oth Cocaine Metabols U Cannabinoids Screen Serum Ketones Moderate 11/26/17 11/26/17 11/26/17 20:13 21:04 21:46 WBC RBC Hgb Hct MCV MCH MCHC RDW Plt Count MPV Neut % (Auto) Lymph % (Auto) Evangeline % (Auto) Eos % (Auto) Baso % (Auto) Neut # (Auto) Lymph # (Auto) Evangeline # (Auto) Eos # (Auto) Baso # (Auto) Neutrophils % (Manual) Band Neutrophils % Lymphocytes % (Manual) Reactive Lymphs % Monocytes % (Manual) Eosinophils % (Manual) Platelet Estimate RBC Morphology Sodium 137 Potassium 3.6 Chloride 100 Carbon Dioxide 21 L Anion Gap 19 BUN 8 L Creatinine 0.6 L Est GFR ( Amer) > 60 Est GFR (Non-Af Amer) > 60 POC Glucose (mg/dL) 279 H 238 H Random Glucose 239 H Calcium 8.5 L Phosphorus Magnesium Total Bilirubin AST ALT Alkaline Phosphatase Total Protein Albumin Globulin Albumin/Globulin Ratio Urine Color Urine Clarity Urine pH Ur Specific [place] Urine Protein Urine Glucose (UA) Urine Ketones Urine Blood Urine Nitrate Urine Bilirubin Urine Urobilinogen Ur Leukocyte Esterase Urine WBC (Auto) Urine RBC (Auto) Ur Squamous Epith Cells Urine Opiates Screen Urine Methadone Screen Ur Barbiturates Screen Ur Phencyclidine Scrn Ur Amphetamines Screen U Benzodiazepines Scrn U Oth Cocaine Metabols U Cannabinoids Screen Serum Ketones 11/26/17 11/26/17 11/26/17 22:01 23:12 23:59 WBC RBC Hgb Hct MCV MCH MCHC RDW Plt Count MPV Neut % (Auto) Lymph % (Auto) Evangeline % (Auto) Eos % (Auto) Baso % (Auto) Neut # (Auto) Lymph # (Auto) Evangeline # (Auto) Eos # (Auto) Baso # (Auto) Neutrophils % (Manual) Band Neutrophils % Lymphocytes % (Manual) Reactive Lymphs % Monocytes % (Manual) Eosinophils % (Manual) Platelet Estimate RBC Morphology Sodium Potassium Chloride Carbon Dioxide Anion Gap BUN Creatinine Est GFR ( Amer) Est GFR (Non-Af Amer) POC Glucose (mg/dL) 261 H 213 H 167 H Random Glucose Calcium Phosphorus Magnesium Total Bilirubin AST ALT Alkaline Phosphatase Total Protein Albumin Globulin Albumin/Globulin Ratio Urine Color Urine Clarity Urine pH Ur Specific [place] Urine Protein Urine Glucose (UA) Urine Ketones Urine Blood Urine Nitrate Urine Bilirubin Urine Urobilinogen Ur Leukocyte Esterase Urine WBC (Auto) Urine RBC (Auto) Ur Squamous Epith Cells Urine Opiates Screen Urine Methadone Screen Ur Barbiturates Screen Ur Phencyclidine Scrn Ur Amphetamines Screen U Benzodiazepines Scrn U Oth Cocaine Metabols U Cannabinoids Screen Serum Ketones 11/27/17 11/27/17 11/27/17 01:03 01:39 02:03 WBC RBC Hgb Hct MCV MCH MCHC RDW Plt Count MPV Neut % (Auto) Lymph % (Auto) Evangeline % (Auto) Eos % (Auto) Baso % (Auto) Neut # (Auto) Lymph # (Auto) Evangeline # (Auto) Eos # (Auto) Baso # (Auto) Neutrophils % (Manual) Band Neutrophils % Lymphocytes % (Manual) Reactive Lymphs % Monocytes % (Manual) Eosinophils % (Manual) Platelet Estimate RBC Morphology Sodium 138 Potassium 3.3 L Chloride 103 Carbon Dioxide 23 Anion Gap 15 BUN 7 L Creatinine 0.5 L Est GFR ( Amer) > 60 Est GFR (Non-Af Amer) > 60 POC Glucose (mg/dL) 148 H 147 H Random Glucose 163 H Calcium 8.1 L Phosphorus Magnesium Total Bilirubin AST ALT Alkaline Phosphatase Total Protein Albumin Globulin Albumin/Globulin Ratio Urine Color Urine Clarity Urine pH Ur Specific [place] Urine Protein Urine Glucose (UA) Urine Ketones Urine Blood Urine Nitrate Urine Bilirubin Urine Urobilinogen Ur Leukocyte Esterase Urine WBC (Auto) Urine RBC (Auto) Ur Squamous Epith Cells Urine Opiates Screen Urine Methadone Screen Ur Barbiturates Screen Ur Phencyclidine Scrn Ur Amphetamines Screen U Benzodiazepines Scrn U Oth Cocaine Metabols U Cannabinoids Screen Serum Ketones 11/27/17 11/27/17 11/27/17 03:24 04:06 05:56 WBC RBC Hgb Hct MCV MCH MCHC RDW Plt Count MPV Neut % (Auto) Lymph % (Auto) Evangeline % (Auto) Eos % (Auto) Baso % (Auto) Neut # (Auto) Lymph # (Auto) Evangeline # (Auto) Eos # (Auto) Baso # (Auto) Neutrophils % (Manual) Band Neutrophils % Lymphocytes % (Manual) Reactive Lymphs % Monocytes % (Manual) Eosinophils % (Manual) Platelet Estimate RBC Morphology Sodium 138 Potassium 3.2 L Chloride 103 Carbon Dioxide 24 Anion Gap 14 BUN 7 L Creatinine 0.6 L Est GFR ( Amer) > 60 Est GFR (Non-Af Amer) > 60 POC Glucose (mg/dL) 134 H 197 H Random Glucose 131 H Calcium 8.6 Phosphorus 1.8 L Magnesium 2.1 Total Bilirubin 0.5 AST 18 ALT 22 Alkaline Phosphatase 108 Total Protein 6.9 Albumin 3.4 L D Globulin 3.5 Albumin/Globulin Ratio 1.0 Urine Color Urine Clarity Urine pH Ur Specific [place] Urine Protein Urine Glucose (UA) Urine Ketones Urine Blood Urine Nitrate Urine Bilirubin Urine Urobilinogen Ur Leukocyte Esterase Urine WBC (Auto) Urine RBC (Auto) Ur Squamous Epith Cells Urine Opiates Screen Urine Methadone Screen Ur Barbiturates Screen Ur Phencyclidine Scrn Ur Amphetamines Screen U Benzodiazepines Scrn U Oth Cocaine Metabols U Cannabinoids Screen Serum Ketones 11/27/17 11/27/17 11/27/17 05:56 07:55 11:54 WBC 12.9 H RBC 4.50 Hgb 13.2 Hct 39.4 MCV 87.6 D MCH 29.4 MCHC 33.6 RDW 13.8 Plt Count 269 MPV 8.6 Neut % (Auto) 80.5 H Lymph % (Auto) 8.1 L Evangeline % (Auto) 10.3 H Eos % (Auto) 0.8 Baso % (Auto) 0.3 Neut # (Auto) 10.4 H Lymph # (Auto) 1.0 Evangeline # (Auto) 1.3 H Eos # (Auto) 0.1 Baso # (Auto) 0.0 Neutrophils % (Manual) 73 Band Neutrophils % 9 H Lymphocytes % (Manual) 6 L Reactive Lymphs % 1 H Monocytes % (Manual) 10 Eosinophils % (Manual) 1 Platelet Estimate Normal RBC Morphology Normal Sodium Potassium Chloride Carbon Dioxide Anion Gap BUN Creatinine Est GFR ( Amer) Est GFR (Non-Af Amer) POC Glucose (mg/dL) 156 H 248 H Random Glucose Calcium Phosphorus Magnesium Total Bilirubin AST ALT Alkaline Phosphatase Total Protein Albumin Globulin Albumin/Globulin Ratio Urine Color Urine Clarity Urine pH Ur Specific [place] Urine Protein Urine Glucose (UA) Urine Ketones Urine Blood Urine Nitrate Urine Bilirubin Urine Urobilinogen Ur Leukocyte Esterase Urine WBC (Auto) Urine RBC (Auto) Ur Squamous Epith Cells Urine Opiates Screen Urine Methadone Screen Ur Barbiturates Screen Ur Phencyclidine Scrn Ur Amphetamines Screen U Benzodiazepines Scrn U Oth Cocaine Metabols U Cannabinoids Screen Serum Ketones 11/27/17 11/27/17 14:37 16:12 WBC RBC Hgb Hct MCV MCH MCHC RDW Plt Count MPV Neut % (Auto) Lymph % (Auto) Evangeline % (Auto) Eos % (Auto) Baso % (Auto) Neut # (Auto) Lymph # (Auto) Evangeline # (Auto) Eos # (Auto) Baso # (Auto) Neutrophils % (Manual) Band Neutrophils % Lymphocytes % (Manual) Reactive Lymphs % Monocytes % (Manual) Eosinophils % (Manual) Platelet Estimate RBC Morphology Sodium Potassium Chloride Carbon Dioxide Anion Gap BUN Creatinine Est GFR ( Amer) Est GFR (Non-Af Amer) POC Glucose (mg/dL) 193 H Random Glucose Calcium Phosphorus Magnesium Total Bilirubin AST ALT Alkaline Phosphatase Total Protein Albumin Globulin Albumin/Globulin Ratio Urine Color Urine Clarity Urine pH Ur Specific [place] Urine Protein Urine Glucose (UA) Urine Ketones Urine Blood Urine Nitrate Urine Bilirubin Urine Urobilinogen Ur Leukocyte Esterase Urine WBC (Auto) Urine RBC (Auto) Ur Squamous Epith Cells Urine Opiates Screen Positive H Urine Methadone Screen Negative Ur Barbiturates Screen Negative Ur Phencyclidine Scrn Negative Ur Amphetamines Screen Negative U Benzodiazepines Scrn Negative U Oth Cocaine Metabols Negative U Cannabinoids Screen Positive H Serum Ketones Attending/Attestation - Attestation I have personally seen and examined this patient.: Yes I have fully participated in the care of the patient.: Yes I have reviewed all pertinent clinical information: Yes Notes (Text): 11/27/17 17:42 Patient seen at bedside. This is a 27 year old male with PMHx significant for Crohn's disease (dx at age 20, not on any therapy presently or previously), Type 1 diabetes mellitus, Bipolar disorder, schizophrenia, marijuana/cocaine use who presented to the ED with proctalgia and diarrhea. On examination he has skip rectal area of induration. Will do CT pelvis to rule out fistula and surgical consult for possible I and D. Agree with antibiotics coverage and tight glycemic control. Would benefit from outpatient follow up with his primary supervisor plate forming to initiate maintenance therapy for CD
[2017-11-27 14:56] LABS: BARBITURATES, UR NEGATIVE (NEGATIVE); BENZODIAZEPINES, UR NEGATIVE (NEGATIVE); PHENCYCLIDINE, UR NEGATIVE (NEGATIVE)
[2017-11-27 15:11] LABS: OPIATES, UR POSITIVE (NEGATIVE)
[2017-11-27] MEDS ORDERED: Iodixanol 320 MG/ML 100 ML BOTTLE IV ONE (15:40)
[2017-11-27] MEDS: Saccharomyces Boulardi 250 mg Cap PO SCH (17:01)
--- NOTE | 2017-11-27 17:29 | CT ---
PROCEDURE: CT scan of the abdomen and pelvis dated 11/27/2017. HISTORY: Crohn's, perianal abscess COMPARISON: Comparison made with prior CT scan of the abdomen pelvis 08/13/2017. TECHNIQUE: Radiation dose: Total exam DLP = 230.42 mGy-cm. Contiguous helical/transaxial sections of the abdomen pelvis performed following oral and intravenous injection of approximately 100 cc Visipaque 320 contrast material. Additional 2 dimensional sagittal and coronal reformats provided. This CT exam was performed using one or more of the following dose reduction techniques: Automated exposure control, adjustment of the mA and/or kV according to patient size, and/or use of iterative reconstruction technique. FINDINGS: LOWER THORAX: Lung bases clear. No infiltrate effusion or basilar pneumothorax. There is a small hiatal hernia. Heart size within range of normal. No significant pericardial effusion. LIVER: Liver measures approximately 18.5 cm in CC dimension. Moderate fatty hepatic infiltration. GALLBLADDER AND BILE DUCTS: The gallbladder incompletely distended common due to nonfasting state, which accounts for thick-walled appearance. No definitive evidence of intraluminal gallbladder calculi. PANCREAS: Unremarkable. No gross lesion or ductal dilatation. SPLEEN: Unremarkable. ADRENALS: Unremarkable. No mass. KIDNEYS AND URETERS: Unremarkable. No hydronephrosis. No solid mass. VASCULATURE: Unremarkable. No aortic aneurysm. BOWEL: Evaluation of the bowel is limited due to incomplete opacification. The stomach is distended with a large amount of food debris liquid air and small amount of contrast material. There are bowel and multiple loops of small bowel that exhibit wall thickening on consistent with this patient's history of Crohn's disease. There is free fluid seen in the pelvis. . Liquid stool is present within the colon. APPENDIX: What could represent abnormal appendix of best seen on coronal image number [id number]. No definitive evidence of acute appendicitis. PERITONEUM: Small amount of for of free fluid in the pelvis as above. No free intraperitoneal air. LYMPH NODES: Unremarkable. No enlarged lymph nodes. BLADDER: Urinary bladder is physiologically distended. No evidence of intraluminal urinary bladder calculi. . REPRODUCTIVE: Prostate gland unremarkable. BONES: There has been interval development of a chronic endplate deformity superior T11 segment. Osseous structures otherwise appear grossly intact. Minor degenerative spondylosis of the lower thoracic spine. OTHER FINDINGS: There is a small subcutaneous posterior perianal subcutaneous abscess that measures approximately 2.5 x 2.2 x 2.0 cm IMPRESSION: Findings consistent with multiple of loops of enhancing mildly thick-walled small bowel consistent with this patient's history of Crohn's disease. Large amount of liquid stool seen within the colon. There is a subcutaneous posterior perianal abscess. Fatty hepatic infiltration.
--- NOTE | 2017-11-27 20:24 | CP.PCM.PN ---
Subjective - Date & Time of Evaluation Date of Evaluation: 11/27/17 Time of Evaluation: 03:00 - Subjective Subjective: Hospitalist Progress Note Patient was seen and examined at 3:00 PM 11/27/17 ICU Bed #18 27 year old male (PMHx of DM 1, Crohn's Disease, Schizophrenia, Bipolar Disorder , Anxiety/Depression, Prolonged QTc) who presented with complaints of SOB and dark red diarrhea for 2 days after having steak. He also complained of perianal pain. He was found to be in DKA and was admitted to the ICU for further evaluation Please note that the patient's full ROS is not very reliable. Prior to my entering his room he was observed to be awake and resting comfortably. As soon as knocked on his door, he started to move and shake with pain. He stated initially he had pain in the abdomen and nausea (he had eaten half of his food at the bedside) but then when distracted towards end of the exam, he stated that he never stated that he had pain his in abdomen and that he is currently not having it. At the time of my exam, initially when palpating his abdomen, patient was bearing down in my opinion to make his abdomen hard. Then while distracted and telling me about his psychiatry medications, upon palpation, his abdomen was soft and there was no guarding He stated that he had perianal pain, but would not allow full examination of the rectum and only allowed visualization/palpation of the gluteal crease inferior to the sacrum I was notified but Nurse Lucina who was caring for him in the ICU, that patient was refusing CT Abdomen/Pelvis as well as other medications (such as KCl to replete his potassium) if he did NOT get Morphine. Patient also at the time of my exam requested to be given Benadryl IV. I explained to patient that I would not be ordering any narcotics nor would not be giving him any IV Benadryl. It was at this time, that he stated that he never requested narcotic pain medication and that he never refused medications or testing. I informed him that should he continue to interfere with the our recommended treatments for him, that he would be discharged for failure to follow instructions. He then stated that he had no other complaints upon FULL ROS Exam: General: AAOX3, NAD HEENT: NCA, EOMI, PERRLA, NO cervical/supraclavicular/submandibular lymphadenopathy, NO pharyngeal erythema/exudate, Nasal Turbinates are nonerythematous/nonedematous, Oral Mucosa is moist Cardio: NS1 and NS2, NO M/R/G Resp: CTA B/L, NO R/R/W GI: BSx4, Soft, NT, NO HSM, NO guarding/rebound tenderness Ext: Pulses are strong and equal, Capillary Refill is 2 seconds, NO edema Neuro: CN II through XII are grossly intact Rectal Exam/Anal Exam: patient refused but only allowed visualization/palpation of the gluteal crease inferior to the sacrum and this area was tender to palpation with possible fluctuence. Assessment and Plan: 1). DKA Anion Gap has resolved Based upon a weight of 93 pounds he total insulin requirement for the day would be 21 units. 1/3 of this was ordered as Lantus 7 units SC HS to start tonight and the other 2/3 was ordered as Regular Insulin 4 units AC Meals Status: Resolved 2). DM 1 Patient states that he has been taking his insulin consistently at home: Lantus 22 units HS and Regular Insulin 20 Units AC Meals However, we will start him on the weight based insulin coverage as discussed above. F/U HgBA1C F/U Lipid Panel F/U TSH, T4 Status: Chronic 3). Possible Perianal Abscess and Possible Abdominal Pain Ciprofloxacin 400 mg IV Q12H Flagyl 250 mg IV Q8H Follow up CT Abdomen/Pelvis with PO and IV contrast: patient refused to drink all of the PO contrast GI Dr. Duran Surgery Dr. Silver Status: Acute 4). Hypokalemia Spoke with Nurse Verdugo and patient did eventually take KCl 20 mEq F/U BMP, Mag, and Phos in morning 11/28/17 Status: Acute 5). Hx Crohn's Disease Please note that patient stated that he followed up with his GI Dr. Veloz last in July 2017 but then stated that he follows up with him every month with next appointment scheduled for 12/09/17. As per patient, Dr. Veloz to determine whether he will be started on treatment for Crohn's Stool Occult is negative F/U Stool Culture Status: Chronic 6). Hx Schizophrenia/Bipolar Disorder/Anxiety/Depression Patient was on Seroquel and Trazodone back in July 2017. At the time of that admission, it was noted that patient has prolonged QTc and therefore these medications were discontinued and the reasons for this were thoroughly explained to him a the time. Psychiatry consultation at that time recommended Lexapro 20 mg PO 1x/day and Remeron 30 mg PO HS. Patient states that his PMD Dr. Barnett started him back on Seroquel and Trazodone and discontinued the Lexapro and Remeron. He has not taken his Seroquel and Trazodone for 1 month now. He never followed up with outpatient Psychiatry Clinic as instructed to do so upon his discharge in July 2017. Follow up recommendations by consult with Psychiatry Dr. Marion. Status: Chronic 7). Hx Prolonged QTc EKG today after my exam indicated QTc prolonged at 467 Status: Chronic 8). Prophylaxis Toradol 15 mg IV Q6H PRN Moderate Pain Toradol 30 mg IV Q6H PRN Severe Pain Bilateral SCDs Protonix 40 mg IV 1x/day Florastor 250 mg PO 2x/day Heart Health Low Carb Diet Nursing Order Placed: NO NARCOTICS and NO BENADRYL Misbah Romero D.O. Objective - Vital Signs/Intake and Output Vital Signs (last 24 hours): Temp Pulse Resp BP Pulse Ox 98.3 F 86 20 100/64 100 11/27/17 19:15 11/27/17 19:15 11/27/17 19:15 11/27/17 19:15 11/27/17 19:15 Intake and Output: 11/27/17 11/28/17 18:59 06:59 Intake Total 0 Output Total 0 Balance 0 - Medications Medications: Current Medications Ciprofloxacin (Cipro 400mg/200ml Dsw) 400 mg in 200 mls @ 133 mls/hr IVPB Q12H JOHANA PRN Reason: Protocol Last Admin: 11/27/17 19:48 Dose: 133 mls/hr Metronidazole 250 mg/ (Miscellaneous) 50 mls @ 100 mls/hr IVPB Q8 JOHANA PRN Reason: Protocol Last Admin: 11/27/17 13:22 Dose: 100 mls/hr Insulin Aspart (Novolog) 0 unit SC Q4 JOHANA PRN Reason: Protocol Last Admin: 11/27/17 16:23 Dose: 2 unit Ketorolac Tromethamine (Toradol) 15 mg IVP Q6 PRN PRN Reason: Pain, moderate (4-7) Ketorolac Tromethamine (Toradol) 30 mg IVP Q6 PRN PRN Reason: Pain, severe (8-10) Last Admin: 11/27/17 15:21 Dose: 30 mg Loperamide HCl (Imodium) 2 mg PO QID PRN PRN Reason: Diarrhea Last Admin: 11/27/17 19:48 Dose: 2 mg Mirtazapine (Remeron) 30 mg PO [facility] Pantoprazole Sodium (Protonix Inj) 40 mg IVP DAILY [facility] Last Admin: 11/27/17 09:29 Dose: 40 mg Saccharomyces Boulardii (Florastor) 250 mg PO BID [facility] Last Admin: 11/27/17 17:01 Dose: 250 mg - Labs Labs: 11/27/17 05:56 11/27/17 05:56
[2017-11-27] MEDS: (Lantus) Insulin Glargine, Recombinant SC SCH (21:30)
[2017-11-28] MEDS: metroNIDAZOLE IV 500 mg/100 ml 250 MG in Premixed IV 1 EA IVPB SCH ×3 (05:47→21:26)
[2017-11-28 06:48] LABS: BASO % 0.2 % (0.0-2.0); EOS # 0.1 K/uL (0.0-0.7); EOS % 1.4 % (0.0-4.0); HEMOGLOBIN 12.7 g/dL (12.0-18.0); LYMPH # 0.9 K/uL (1.0-4.3); LYMPH % 9.1 % (20.0-40.0); MEAN CELL VOLUME 88.2 fL (80.0-94.0); MEAN PLATELET VOLUME 8.8 fL (7.2-11.7); MONO # 1.3 K/uL (0.0-0.8); MONO % 12.7 % (0.0-10.0); NEUT # 7.6 K/uL (1.8-7.0); NEUT % 76.6 % (50.0-75.0); PLATELET COUNT 237 K/uL (130-400); RBC 4.23 Mil/uL (4.40-5.90); RED CELL DISTRIBUTION WIDTH 14.1 % (11.5-14.5)
[2017-11-28] MEDS: Ciprofloxacin 400mg/200ml D5W 400 MG/200 ML BAG IVPB SCH ×2 (07:34→19:30)
[2017-11-28] MEDS ORDERED: Potassium Chloride 20 mEq ER Tab PO ONE (07:41)
[2017-11-28 08:03] LABS: LDL CHOLESTEROL 53 mg/dL (0-129)
[2017-11-28] MEDS: (Novolin R) Insulin Human Regular 100 units/ml vial SC SCH ×4 (08:05→18:01)
[2017-11-28 08:19] LABS: BLOOD UREA NITROGEN 6 mg/dL (9-20); CALCIUM 8.1 mg/dl (8.6-10.4); GFR AFRICAN-AMERICAN > 60; GFR NON-AFRICAN AMERICAN > 60; HDL CHOLESTEROL 46 mg/dL (30-70)
[2017-11-28 08:37] LABS: BANDS 8 % (0-2); BASOPHIL 1 % (0-2); EOSINOPHIL 3 % (0-4); LYMPHOCYTE 3 % (20-40); MONOCYTE 8 % (0-10); NEUTROPHIL 73 % (50-75); PLATELET ESTIMATE NORMAL (NORMAL); REACTIVE LYMPHOCYTES 4 % (0-0); TOTAL CELLS COUNTED 100
[2017-11-28 08:38] LABS: TOXIC GRANULATION PRESENT
--- NOTE | 2017-11-28 09:11 | CP.PCM.PN ---
<Jagdish Valero - Last Filed: 11/28/17 09:09> Subjective - Date & Time of Evaluation Date of Evaluation: 11/28/17 Time of Evaluation: 07:00 - Subjective Subjective: PGY5 GI Fellow Progress Note Patient seen and examined bedside this morning. The patient was resting comfortably both times I have entered the room. Upon waking him, patient states he is having ongoing perianal pain which is not relieved by toradol. Regarding his insulin and hyperglycemia, he states he "does his best" and manages this "himself" and does not want to talk about it any further. Continues to ask for stronger pain medication. No events overnight. Tolerating diet without any issues. Passing loose stool. 12 system ROS performed and negative except where stated. Objective - Vital Signs/Intake and Output Vital Signs (last 24 hours): Temp Pulse Resp BP Pulse Ox 98.5 F 80 20 103/71 96 11/28/17 07:49 11/28/17 07:49 11/28/17 07:49 11/28/17 07:49 11/28/17 07:49 Intake and Output: 11/28/17 11/28/17 06:59 18:59 Intake Total 300 Output Total 450 Balance -150 - Medications Medications: Current Medications Ciprofloxacin (Cipro 400mg/200ml Dsw) 400 mg in 200 mls @ 133 mls/hr IVPB Q12H JOHANA PRN Reason: Protocol Last Admin: 11/28/17 07:34 Dose: 133 mls/hr Metronidazole 250 mg/ (Miscellaneous) 50 mls @ 100 mls/hr IVPB Q8 JOHANA PRN Reason: Protocol Last Admin: 11/28/17 05:47 Dose: 100 mls/hr Insulin Glargine (Lantus) 7 unit SC HS [facility] Last Admin: 11/27/17 21:30 Dose: 7 units Insulin Human Regular (Novolin R) 4 unit SC AC [facility] Last Admin: 11/28/17 08:05 Dose: 4 unit Ketorolac Tromethamine (Toradol) 15 mg IVP Q6 PRN PRN Reason: Pain, moderate (4-7) Last Admin: 11/28/17 05:54 Dose: 15 mg Ketorolac Tromethamine (Toradol) 30 mg IVP Q6 PRN PRN Reason: Pain, severe (8-10) Last Admin: 11/27/17 21:31 Dose: 30 mg Mirtazapine (Remeron) 30 mg PO HS [facility] Last Admin: 11/27/17 21:30 Dose: 30 mg Pantoprazole Sodium (Protonix Inj) 40 mg IVP DAILY [facility] Last Admin: 11/27/17 09:29 Dose: 40 mg Saccharomyces Boulardii (Florastor) 250 mg PO BID [facility] Last Admin: 11/27/17 17:01 Dose: 250 mg - Labs Labs: 11/28/17 06:38 11/28/17 06:38 - Constitutional Appears: Non-toxic, No Acute Distress - Eye Exam Eye Exam: EOMI, PERRL - ENT Exam ENT Exam: Mucous Membranes Moist - Respiratory Exam Respiratory Exam: Clear to Ausculation Bilateral. absent: Rales, Rhonchi, Wheezes - Cardiovascular Exam Cardiovascular Exam: RRR, +S1, +S2 - GI/Abdominal Exam GI & Abdominal Exam: Soft, Tenderness (RLQ), Normal Bowel Sounds. absent: Distended, Firm, Guarding, Rigid, Mass, Organomegaly - Extremities Exam Extremities Exam: Normal Inspection. absent: Pedal Edema - Neurological Exam Neurological Exam: Alert, Awake, Oriented x3 - Psychiatric Exam Psychiatric exam: Anxious - Skin Skin Exam: Dry, Warm Additional comments: multiple healing scratches on arms B/L Assessment and Plan - Assessment and Plan (Free Text) Assessment: Patient is a 27yo male with PMHx significant for Crohn's disease (dx at age 20, not on any therapy presently or previously), Type 1 diabetes mellitus, Bipolar disorder, schizophrenia, marijuana/cocaine use who presented to the ED with abdominal/rectal pain and diarrhea -Perianal pain 2/2 perianal abscess -Abdominal pain, R/O Crohn's flare -Hyperglycemia and uncontrolled type 1 diabetes mellitus -Bipolar d/o, schizophrenia -Marijuana use Plan: -CT scan reviewed though limited due to patient refusing to drink oral contrast ; some mild small bowel thickening is noted -Discussed importance of glycemic control as well as outpatient follow up with GI to evaluate for CD given recurrence of perianal abscess -In the absence of formal evaluation and established diagnosis of CD, would not treat empirically at this time given the absence of clinical findings/ significant symptoms -Patient's nonadherence to therapy poses concerns over future compliance; again stressed importance of follow up, diagnosis and treatment if needed -Recommend symptomatic management and formal outpatient evaluation by GI -Surgical consultation appreciated -Patent continues to exhibit pain seeking behavior -I have contacted Dr Veloz's office to set up outpatient follow up for Mr Gonzalez - awaiting call back <Efrain Troy - Last Filed: 11/28/17 09:46> Objective - Vital Signs/Intake and Output Vital Signs (last 24 hours): Temp Pulse Resp BP Pulse Ox 98.5 F 80 20 103/71 96 11/28/17 07:49 11/28/17 07:49 11/28/17 07:49 11/28/17 07:49 11/28/17 07:49 Intake and Output: 11/28/17 11/28/17 06:59 18:59 Intake Total 300 Output Total 450 Balance -150 - Medications Medications: Current Medications Ciprofloxacin (Cipro 400mg/200ml Dsw) 400 mg in 200 mls @ 133 mls/hr IVPB Q12H JOHANA PRN Reason: Protocol Last Admin: 11/28/17 07:34 Dose: 133 mls/hr Metronidazole 250 mg/ (Miscellaneous) 50 mls @ 100 mls/hr IVPB Q8 JOHANA PRN Reason: Protocol Last Admin: 11/28/17 05:47 Dose: 100 mls/hr Insulin Glargine (Lantus) 7 unit SC HS [facility] Last Admin: 11/27/17 21:30 Dose: 7 units Insulin Human Regular (Novolin R) 4 unit SC AC [facility] Last Admin: 11/28/17 08:05 Dose: 4 unit Ketorolac Tromethamine (Toradol) 15 mg IVP Q6 PRN PRN Reason: Pain, moderate (4-7) Last Admin: 11/28/17 05:54 Dose: 15 mg Ketorolac Tromethamine (Toradol) 30 mg IVP Q6 PRN PRN Reason: Pain, severe (8-10) Last Admin: 11/27/17 21:31 Dose: 30 mg Mirtazapine (Remeron) 30 mg PO HS [facility] Last Admin: 11/27/17 21:30 Dose: 30 mg Pantoprazole Sodium (Protonix Inj) 40 mg IVP DAILY [facility] Last Admin: 11/28/17 09:37 Dose: 40 mg Saccharomyces Boulardii (Florastor) 250 mg PO BID [facility] Last Admin: 11/28/17 09:35 Dose: 250 mg - Labs Labs: 11/28/17 06:38 11/28/17 06:38 Attending/Attestation - Attestation I have personally seen and examined this patient.: Yes I have fully participated in the care of the patient.: Yes I have reviewed all pertinent clinical information, including history, physical exam and plan: Yes Notes (Text): 11/28/17 09:42 I have seen and examined patient with GI fellow. No acute events overnight, he continues to report anorectal discomfort asking for additional pain medication. He denies abdominal pain, nausea, vomiting, fever/chills. Tolerating PO diet without difficulty, though is having loose bowel movements. Review of vitals from today are normal. DM - uncontrolled Schizophrenia/Bipolar Polysubstance abuse Perianal abscess, ?underlying IBD CT imaging reviewed by me showing small bowel thickening without evidence of stricture or abscess - Diet as tolerated - Continue with antibiotic therapy - Follow up surgical recommendations, planning for OR intervention tomorrow - Strict blood glucose control, patient refuses endocrine referral for additional assistance in diabetic management - Would suggest outpatient CT/MR enterography for more optimal small bowel evaluation - Patient with apparent recent EGD/colonoscopy (July 2017) with Dr. Veloz which was normal according to patient. Will contact Dr. Veloz's office to make patient a follow up appointment after hospital discharge. No further planned GI intervention, will sign off case. Please reconsult as necessary, thank you.
[2017-11-28] MEDS: Saccharomyces Boulardi 250 mg Cap PO SCH ×2 (09:35→18:01)
--- NOTE | 2017-11-28 10:33 | CP.PCM.PN ---
<Sakina Hand - Last Filed: 11/28/17 16:17> Subjective - Date & Time of Evaluation Date of Evaluation: 11/28/17 Time of Evaluation: 09:15 - Subjective Subjective: Patient seen and examined at bedside. Patient resting comfortably in bed, complaining of perirectal pain and RLQ pain. Patient says he has had this since admission and attributes this to his Crohn disease. Patient says he spoke with the surgery team and is aware that he will be going for surgery tomorrow morning. Patient admits to continued diarrhea that he describes as dark red or black. Patient is tolerating his diet however and denies any nausea or vomiting. Patient notes that he was feeling sweaty last night and thinks he may have had a fever. He also notes leg pain from his knees down secondary to diabetic neuropathy. He denies chills, headache, dizziness, constipation, lower extremity swelling. Objective - Vital Signs/Intake and Output Vital Signs (last 24 hours): Temp Pulse Resp BP Pulse Ox 98.5 F 80 20 103/71 96 11/28/17 07:49 11/28/17 07:49 11/28/17 07:49 11/28/17 07:49 11/28/17 07:49 Intake and Output: 11/28/17 11/28/17 06:59 18:59 Intake Total 300 Output Total 450 Balance -150 - Medications Medications: Current Medications Ciprofloxacin (Cipro 400mg/200ml Dsw) 400 mg in 200 mls @ 133 mls/hr IVPB Q12H JOHANA PRN Reason: Protocol Last Admin: 11/28/17 07:34 Dose: 133 mls/hr Metronidazole 250 mg/ (Miscellaneous) 50 mls @ 100 mls/hr IVPB Q8 JOHANA PRN Reason: Protocol Last Admin: 11/28/17 05:47 Dose: 100 mls/hr Insulin Glargine (Lantus) 7 unit SC HS [facility] Last Admin: 11/27/17 21:30 Dose: 7 units Insulin Human Regular (Novolin R) 4 unit SC AC [facility] Last Admin: 11/28/17 08:05 Dose: 4 unit Ketorolac Tromethamine (Toradol) 15 mg IVP Q6 PRN PRN Reason: Pain, moderate (4-7) Last Admin: 11/28/17 05:54 Dose: 15 mg Ketorolac Tromethamine (Toradol) 30 mg IVP Q6 PRN PRN Reason: Pain, severe (8-10) Last Admin: 11/27/17 21:31 Dose: 30 mg Mirtazapine (Remeron) 30 mg PO HS [facility] Last Admin: 11/27/17 21:30 Dose: 30 mg Pantoprazole Sodium (Protonix Inj) 40 mg IVP DAILY [facility] Last Admin: 11/28/17 09:37 Dose: 40 mg Saccharomyces Boulardii (Florastor) 250 mg PO BID [facility] Last Admin: 11/28/17 09:35 Dose: 250 mg - Labs Labs: 11/28/17 06:38 11/28/17 06:38 - Constitutional Appears: Non-toxic, No Acute Distress, Unkempt, Cachectic - Head Exam Head Exam: ATRAUMATIC, NORMAL INSPECTION, NORMOCEPHALIC - Eye Exam Eye Exam: EOMI, Normal appearance, PERRL - ENT Exam ENT Exam: Mucous Membranes Moist - Respiratory Exam Respiratory Exam: Clear to Ausculation Bilateral, NORMAL BREATHING PATTERN - Cardiovascular Exam Cardiovascular Exam: RRR, +S1, +S2. absent: Gallop, Rubs, Murmur - GI/Abdominal Exam GI & Abdominal Exam: Guarding (voluntary), Soft, Tenderness (RLQ > RUQ ), Normal Bowel Sounds. absent: Distended - Extremities Exam Extremities Exam: Tenderness (B/L from knees down ). absent: Pedal Edema - Neurological Exam Neurological Exam: Alert, Awake, Motor Sensory Deficit (decreased sensation of the planter surface of the right foot) - Psychiatric Exam Psychiatric exam: Normal Affect, Normal Mood - Skin Skin Exam: Dry, Intact, Normal Color, Warm Assessment and Plan - Assessment and Plan (Free Text) Plan: Crohn's Disease with possible perianal abscess * Patient sees Dr. Veloz as an outpatient and has an appointment with him 12/09 according to the patient * Stool occult blood negative * Stool culture pending * Surgery (Dr. Silver) consulted; help appreciated * Patient to go to OR tomorrow for abscess I&D - PLEASE DO NOT GIVE NARCOTICS POST OP. TORADOL ONLY PLEASE. * GI (Dr. Duran) consulted; help appreciated Imaging * CT Abdomen/Pelvis with PO and IV contrast Meds/Fluids: * Ciprofloxacin 400 mg IV Q12H * Flagyl 250 mg IV Q8H History of DM type 1 * Initially admitted to the ICU for DKA which has resolved * Lantus 7 units SC HS * Regular Insulin 4 units AC Meals * HbA1c * Lipid Panel: * TSH/Free T4: Hypokalemia * Potassium 3.2 today - replaced * Will monitor with morning labs and replace potassium/magnesium as needed Prolonged QT * Seen on EKG * Avoid QT prolonging drugs if possible History of Schizophrenia/Bipolar Disorder/Anxiety/Depression * Psychiatry consulted (Dr. Marion), help appreciated * Patient says he is on Seroquel and Trazadone prescribed to him by Dr. Barnett - this was stopped in July due to prolonged QT and he was started on Lexapro and Remeron - patient says after discharge he was started back on his old medications, however currently he has not taken this for 1 month Prophylaxis * Toradol 15 mg IV Q6H PRN Moderate Pain * Toradol 30 mg IV Q6H PRN Severe Pain * SCDs * Protonix 40 mg IV 1x/day * Florastor 250 mg PO 2x/day * Heart Healthy, Low Carb Diet * Nursing Order Placed: NO NARCOTICS and NO BENADRYL <Misbah Romero - Last Filed: 11/28/17 16:44> Objective - Vital Signs/Intake and Output Vital Signs (last 24 hours): Temp Pulse Resp BP Pulse Ox 98.3 F 98 H 20 105/71 98 11/28/17 16:00 11/28/17 16:00 11/28/17 16:00 11/28/17 16:00 11/28/17 16:00 Intake and Output: 11/28/17 11/28/17 06:59 18:59 Intake Total 300 900 Output Total 450 Balance -150 900 - Medications Medications: Current Medications Ciprofloxacin (Cipro 400mg/200ml Dsw) 400 mg in 200 mls @ 133 mls/hr IVPB Q12H JOHANA PRN Reason: Protocol Last Admin: 11/28/17 07:34 Dose: 133 mls/hr Metronidazole 250 mg/ (Miscellaneous) 50 mls @ 100 mls/hr IVPB Q8 JOHANA PRN Reason: Protocol Last Admin: 11/28/17 13:55 Dose: 100 mls/hr Insulin Glargine (Lantus) 7 unit SC HS JOHANA Last Admin: 11/27/17 21:30 Dose: 7 units Insulin Human Regular (Novolin R) 4 unit SC AC [facility] Last Admin: 11/28/17 12:15 Dose: 4 unit Ketorolac Tromethamine (Toradol) 15 mg IVP Q6 PRN PRN Reason: Pain, moderate (4-7) Last Admin: 11/28/17 05:54 Dose: 15 mg Ketorolac Tromethamine (Toradol) 30 mg IVP Q6 PRN PRN Reason: Pain, severe (8-10) Last Admin: 11/28/17 12:15 Dose: 30 mg Mirtazapine (Remeron) 30 mg PO HS [facility] Last Admin: 11/27/17 21:30 Dose: 30 mg Pantoprazole Sodium (Protonix Inj) 40 mg IVP DAILY [facility] Last Admin: 11/28/17 09:37 Dose: 40 mg Saccharomyces Boulardii (Florastor) 250 mg PO BID [facility] Last Admin: 11/28/17 09:35 Dose: 250 mg - Labs Labs: 11/28/17 06:38 11/28/17 06:38 PT 12.5 SECONDS (9.7-12.2) H 11/28/17 14:24 INR 1.1 11/28/17 14:24 APTT 26 SECONDS (21-34) 11/28/17 14:24 Attending/Attestation - Attestation I have personally seen and examined this patient.: Yes I have fully participated in the care of the patient.: Yes I have reviewed all pertinent clinical information, including history, physical exam and plan: Yes Notes (Text): 11/28/17 16:33 Patient was seen and examined at 11:15 AM Exam, assessment and plan were gone over with the Resident Dr. Sakina Hand. I spoke with Nurse Santizo who informed patient was requesting more pain medication. I again observed patient resting comfortably in the room in no apparent distress. I again explained to him that we would not be providing any narcotic pain medication due to his history and that my assessment of him, did not indicate that narcotics were needed. Also explained that to help treat the pain at the perirectal abscess, what we needed was an anti-inflammatory which he already was on. Patient stated that he had pain at the inferior sacral site when he rubbed it. So I told him to stop rubbing it. Explained to him that he was for the OR with Surgery Team in the morning 11/29/17 , after which he will be monitored, and if no issues he would be discharged to home. It was also explained to him that he should not eat or drink anything after midnight tonight. He expressed understanding. As I was seeing other patients on the floor, I noticed patient walking around on the floors (this was recommended to him by me) without any signs of distress/ pain. Misbah Romero D.O.
--- NOTE | 2017-11-28 10:59 | CP.PCM.PN ---
<Rik Swanson - Last Filed: 11/28/17 10:57> Subjective - Date & Time of Evaluation Date of Evaluation: 11/28/17 Time of Evaluation: 10:57 - Subjective Subjective: PGY-1 surgery progress note for Dr Silver. No acute events noted overnight. Patient stated he had perirectal pain that was not adequately being controlled by his current pain regimen. States he is having diarrhea that is red/black in color. States he might have had a fever last night as he was sweaty. He denies chills, bleeding, chest pain, shortness of breath. Objective - Vital Signs/Intake and Output Vital Signs (last 24 hours): Temp Pulse Resp BP Pulse Ox 98.5 F 80 20 103/71 96 11/28/17 07:49 11/28/17 07:49 11/28/17 07:49 11/28/17 07:49 11/28/17 07:49 Intake and Output: 11/28/17 11/28/17 06:59 18:59 Intake Total 300 Output Total 450 Balance -150 - Medications Medications: Current Medications Ciprofloxacin (Cipro 400mg/200ml Dsw) 400 mg in 200 mls @ 133 mls/hr IVPB Q12H JOHANA PRN Reason: Protocol Last Admin: 11/28/17 07:34 Dose: 133 mls/hr Metronidazole 250 mg/ (Miscellaneous) 50 mls @ 100 mls/hr IVPB Q8 JOHANA PRN Reason: Protocol Last Admin: 11/28/17 05:47 Dose: 100 mls/hr Insulin Glargine (Lantus) 7 unit SC HS [facility] Last Admin: 11/27/17 21:30 Dose: 7 units Insulin Human Regular (Novolin R) 4 unit SC AC [facility] Last Admin: 11/28/17 08:05 Dose: 4 unit Ketorolac Tromethamine (Toradol) 15 mg IVP Q6 PRN PRN Reason: Pain, moderate (4-7) Last Admin: 11/28/17 05:54 Dose: 15 mg Ketorolac Tromethamine (Toradol) 30 mg IVP Q6 PRN PRN Reason: Pain, severe (8-10) Last Admin: 11/27/17 21:31 Dose: 30 mg Mirtazapine (Remeron) 30 mg PO HS [facility] Last Admin: 11/27/17 21:30 Dose: 30 mg Pantoprazole Sodium (Protonix Inj) 40 mg IVP DAILY [facility] Last Admin: 11/28/17 09:37 Dose: 40 mg Saccharomyces Boulardii (Florastor) 250 mg PO BID [facility] Last Admin: 11/28/17 09:35 Dose: 250 mg - Labs Labs: 11/28/17 06:38 11/28/17 06:38 - Additional Findings Additional findings: - Constitutional Appears: Well, No Acute Distress - Head Exam Head Exam: ATRAUMATIC, NORMOCEPHALIC - Eye Exam Eye Exam: Normal appearance - ENT Exam ENT Exam: Mucous Membranes Moist - Respiratory Exam Respiratory Exam: NORMAL BREATHING PATTERN - Cardiovascular Exam Cardiovascular Exam: RRR - GI/Abdominal Exam GI & Abdominal Exam: Soft. absent: Distended, Tenderness - Rectal Exam Additional comments: erythema & induration noted around perianal region with ttp, no blood, no fluctuance noted - Neurological Exam Neurological exam: Alert, Oriented x3 - Skin Skin Exam: Dry, Warm Assessment and Plan - Assessment and Plan (Free Text) Assessment: 27M with Crohn's disease & r/o perianal abscess Plan: - Plan for OR tmr 11/29/17 * Patient consented and is pre-op'd - CT abdomen/pelvis: * Findings consistent with multiple of loops of enhancing mildly thick-walled small bowel consistent with this patient's history of Crohn's disease. Large amount of liquid stool seen within the colon. There is a subcutaneous posterior perianal abscess. Fatty hepatic infiltration. - GI recommends outpatient CT/MR enterography for more optimal small bowel evaluation - d/w Dr. Silver <John Silver B - Last Filed: 11/29/17 15:59> Objective - Vital Signs/Intake and Output Vital Signs (last 24 hours): Temp Pulse Resp BP Pulse Ox 98.6 F 64 10 L 108/71 99 11/29/17 14:38 11/29/17 15:15 11/29/17 15:15 11/29/17 15:15 11/29/17 15:15 Intake and Output: 11/29/17 11/29/17 06:59 18:59 Intake Total 100 350 Balance 100 350 - Medications Medications: Current Medications Hydromorphone HCl (Dilaudid) 0.5 mg IVP Q5M PRN PRN Reason: Pain, severe (8-10) Stop: 11/29/17 16:40 Last Admin: 11/29/17 15:10 Dose: 0.5 mg Ciprofloxacin (Cipro 400mg/200ml Dsw) 400 mg in 200 mls @ 133 mls/hr IVPB Q12H JOHANA PRN Reason: Protocol Last Admin: 11/29/17 08:00 Dose: 133 mls/hr Metronidazole 250 mg/ (Miscellaneous) 50 mls @ 100 mls/hr IVPB Q8 JOHANA PRN Reason: Protocol Last Admin: 11/29/17 13:13 Dose: Not Given Insulin Glargine (Lantus) 7 unit SC HS [facility] Last Admin: 11/28/17 21:27 Dose: 7 units Insulin Human Regular (Novolin R) 4 unit SC AC [facility] Last Admin: 11/29/17 11:52 Dose: Not Given Ketorolac Tromethamine (Toradol) 15 mg IVP Q6 PRN PRN Reason: Pain, moderate (4-7) Last Admin: 11/28/17 05:54 Dose: 15 mg Ketorolac Tromethamine (Toradol) 30 mg IVP Q6 PRN PRN Reason: Pain, severe (8-10) Last Admin: 11/29/17 08:13 Dose: 30 mg Mirtazapine (Remeron) 30 mg PO HS [facility] Last Admin: 11/28/17 21:29 Dose: 30 mg Pantoprazole Sodium (Protonix Inj) 40 mg IVP DAILY [facility] Last Admin: 11/29/17 09:29 Dose: 40 mg Saccharomyces Boulardii (Florastor) 250 mg PO BID [facility] Last Admin: 11/29/17 09:30 Dose: Not Given - Labs Labs: 11/29/17 06:40 11/29/17 06:40 PT 12.5 SECONDS (9.7-12.2) H 11/28/17 14:24 INR 1.1 11/28/17 14:24 APTT 26 SECONDS (21-34) 11/28/17 14:24 Attending/Attestation - Attestation I have personally seen and examined this patient.: Yes I have fully participated in the care of the patient.: Yes I have reviewed all pertinent clinical information, including history, physical exam and plan: Yes Notes (Text): Pt was seen and examined at bedside Agree with above note and assessment OR for I & D of perianal abscess Consent Plan d.w pt in detail Risk and benefit explained in detail.
--- NOTE | 2017-11-28 12:12 | CARD ---
APPROVED REPORT EKG Measurement Heart [id number] CT [id number] [id number] <Conclusion> Sinus rhythm with short CT T wave abnormality, consider inferior ischemia T wave abnormality, consider anterolateral ischemia Prolonged QT Abnormal ECG
--- NOTE | 2017-11-28 13:48 | PCM.PSYCH ---
Initial Psychiatric Evaluation - Initial Psychiatric Evaluation Type of Admission: Voluntary Legal Status: Capacity Chief Complaint (in patient's own words): "Depressed" History of Present Illness and Precipitating Events: The pt is seen, chart reviewed and case discussed He is known from a previous psych admissions He is a poor historian, evasive and guarded and has barely any eye contact He is a 27 yo LM, single, no child, no job but lives alone. He is here for a cyst. He was comfortable during speech except for his unwillingness to elaborate. He reports depressive sxs, anhedonia, poor sleep/appetite and anxiety but denies SI, HI, AVH He used to hear voices when he was depressed and got admitted with SI two years ago. Back then he revealed that his twin brother was and that he suspected it could be a murder. He seems to be med-seeking On Remeron bc of prolonged QT others could not be used Past psych hx: One admission Medical hx: Nerve damage, DM Family psych hx: Denied Current Medications: Active Medications Generic Name Dose Route Start Last Admin Trade Name Freq PRN Reason Stop Dose Admin Ciprofloxacin 400 mg in 200 mls @ 133 mls/hr 11/26/17 19:30 11/28/17 07:34 Cipro 400mg/200ml Dsw IVPB 133 mls/hr Q12H JOHANA Administration Protocol Metronidazole 250 mg/ 50 mls @ 100 mls/hr 11/26/17 22:00 11/28/17 05:47 Miscellaneous IVPB 100 mls/hr Q8 JOHANA Administration Protocol Insulin Glargine 7 unit 11/27/17 22:00 11/27/17 21:30 Lantus SC 7 units HS JOHANA Administration Insulin Human Regular 4 unit 11/28/17 07:30 11/28/17 12:15 Novolin R SC 4 unit AC JOHANA Administration Ketorolac Tromethamine 15 mg 11/27/17 10:26 11/28/17 05:54 Toradol IVP 15 mg Q6 PRN Administration Pain, moderate (4-7) Ketorolac Tromethamine 30 mg 11/27/17 10:27 11/28/17 12:15 Toradol IVP 30 mg Q6 PRN Administration Pain, severe (8-10) Mirtazapine 30 mg 11/27/17 22:00 11/27/17 21:30 Remeron PO 30 mg HS JOHANA Administration Pantoprazole Sodium 40 mg 11/27/17 10:00 11/28/17 09:37 Protonix Inj IVP 40 mg DAILY JOHANA Administration Saccharomyces Boulardii 250 mg 11/27/17 18:00 11/28/17 09:35 Florastor PO 250 mg BID JOHANA Administration Past Psychiatric History - Past Psychiatric History Previous Treatment History: Inpatient Pertinent Medical Hx (Current Medical&Sleep Prob, Allergies): Allergies Allergy/AdvReac Type Severity Reaction Status Date / Time No Known Allergies Allergy Verified 11/26/17 16:08 Seroquel 1 tab PO DAILY 10/19/17 traZODone 1 tab PO DAILY 10/19/17 Insulin Glargine, Recombina [Lantus] 22 unit SC HS 30 Days unit 10/22/17 Insulin Human Regular [Novolin R] 20 unit SC TIDPC 30 Days unit 10/22/17 Review of Systems - Psychiatric Psychiatric: Abnormal Sleep Pattern, Anhedonia, Anxiety, Depression, Difficulty Concentrating, Irritability, Paranoia. absent: Homicidal Ideation, Suicidal Ideation Mental Status Examination - Personal Presentation Personal Presentation: Looks stated age - Affect Affect: Constricted - Motor Activity Motor Activity: Calm - Reliability in Providing Information Reliability in Providing Information: Fair - Speech Speech: Organized - Mood Mood: Depressed, Anxious - Formal Thought Process Formal Thought Process: No Impairment - Cognitive Functions Orientation: Person, Place, Situation, Time Sensorium: Alert Attention/Concentration: Easily distracted Estimate of Intelligence: Average Judgement: Imparied, as evidence by: Poor judgement Memory: Recent intact, as evidence by: Ability to recall events of the day, Remote intact, as evidenced by: Abilit to recall sig. life events - Risk Risk: Diminished functioning - Strength & Assets Inventory Strength & Assets Inventory: Cooperative - Limitations Limitations: Living alone DSM 5 DX - DSM 5 DSM 5 Diagnosis: Major depressive d/o - recurrent, severe, non-psychotic Cannabis use d/o - Recommended/Plan of Treatment Treatment Recommendations and Plan of Treatment: Continue remeron refer to [facility] Support and psychoeducation provided Follow up 33 min
[2017-11-28 14:35] LABS: INR 1.1; PROTHROMBIN TIME 12.5 SECONDS (9.7-12.2)
[2017-11-28] MEDS: (Lantus) Insulin Glargine, Recombinant SC SCH (21:27)
[2017-11-29] MEDS ORDERED: (Novolin R) Insulin Human Regular 100 units/ml vial SC ONE (00:34)
[2017-11-29] MEDS: metroNIDAZOLE IV 500 mg/100 ml 250 MG in Premixed IV 1 EA IVPB SCH ×3 (06:02→21:50)
[2017-11-29 06:51] LABS: BASO # 0.1 K/uL (0.0-0.2); BASO % 0.8 % (0.0-2.0); EOS # 0.1 K/uL (0.0-0.7); EOS % 1.6 % (0.0-4.0); HEMOGLOBIN 12.4 g/dL (12.0-18.0); LYMPH # 1.4 K/uL (1.0-4.3); LYMPH % 15.7 % (20.0-40.0); MEAN CELL VOLUME 88.4 fL (80.0-94.0); MEAN CORPUSCULAR HEMOGLOBIN 29.6 pg (27.0-31.0); MEAN CORPUSCULAR HGB CONC 33.5 g/dL (33.0-37.0); MONO # 1.3 K/uL (0.0-0.8); MONO % 14.1 % (0.0-10.0); NEUT # 6.2 K/uL (1.8-7.0); NEUT % 67.8 % (50.0-75.0); NRBC % 0.1 % (0.0-2.0); RBC 4.2 Mil/uL (4.40-5.90); WHITE BLOOD COUNT 9.2 K/uL (4.8-10.8)
[2017-11-29 07:25] LABS: BLOOD UREA NITROGEN 7 mg/dL (9-20); CALCIUM 8.4 mg/dl (8.6-10.4); GFR AFRICAN-AMERICAN > 60; GFR NON-AFRICAN AMERICAN > 60
[2017-11-29] MEDS: Ciprofloxacin 400mg/200ml D5W 400 MG/200 ML BAG IVPB SCH ×2 (08:00→20:15)
[2017-11-29] MEDS: (Novolin R) Insulin Human Regular 100 units/ml vial SC SCH ×3 (08:07→17:53)
[2017-11-29] MEDS: Saccharomyces Boulardi 250 mg Cap PO SCH ×2 (09:30→17:52)
[2017-11-29] MEDS ORDERED: Propofol 10 mg/ml Inj (20 ML) ONE (14:00)
[2017-11-29] MEDS ORDERED: Midazolam 2 MG/2 ML VIAL ONE (14:00)
--- NOTE | 2017-11-29 14:42 | PCM.SURG1 ---
Surgeon's Initial Post Op Note - Surgeon's Notes Surgeon: Dr. Silver Security Intern: Dr. Mell Evans PGY1, Simon Terrazas MS3 Pre-Operative Diagnosis: Perianal abscess Operative Findings: see op report Post-Operative Diagnosis: Perianal abscess Operation Performed: I&D of posterior perianal abscess Specimen/Specimens Removed: wound culture Estimated Blood Loss: EBL {In ML}: 10 Blood Products Given: N/A Drains Used: No Drains Post-Op Condition: Good Date of Surgery/Procedure: 11/29/17 Time of Surgery/Procedure: 14:41
[2017-11-29] MEDS: HYDROmorphone 0.5 mg/0.5 ml ISec IVP PRN ×2 (14:55→15:10)
[2017-11-29] MEDS ORDERED: Lidocaine/Epinephrine 1% 1:100000 10 ML IJ ONE (15:02)
--- NOTE | 2017-11-29 16:21 | CP.PCM.PN ---
<Sakina Hand - Last Filed: 11/29/17 16:18> Subjective - Date & Time of Evaluation Date of Evaluation: 11/29/17 Time of Evaluation: 07:45 - Subjective Subjective: Patient seen and examined at bedside. Patient resting comfortably in bed with no new complaints at this time. Patient is aware he is going to the OR today. Patient denies fever, chills, headache, dizziness, chest pain, SOB, nausea, vomiting, calf pain, and lower extremity swelling. Objective - Vital Signs/Intake and Output Vital Signs (last 24 hours): Temp Pulse Resp BP Pulse Ox 97.7 F 70 20 96/63 L 99 11/29/17 16:00 11/29/17 16:00 11/29/17 16:00 11/29/17 16:00 11/29/17 16:00 Intake and Output: 11/29/17 11/29/17 06:59 18:59 Intake Total 100 450 Balance 100 450 - Medications Medications: Current Medications Ciprofloxacin (Cipro 400mg/200ml Dsw) 400 mg in 200 mls @ 133 mls/hr IVPB Q12H [facility]OHANA PRN Reason: Protocol Last Admin: 11/29/17 08:00 Dose: 133 mls/hr Metronidazole 250 mg/ (Miscellaneous) 50 mls @ 100 mls/hr IVPB Q8 JOHANA PRN Reason: Protocol Last Admin: 11/29/17 13:13 Dose: Not Given Insulin Glargine (Lantus) 7 unit SC HS [facility] Last Admin: 11/28/17 21:27 Dose: 7 units Insulin Human Regular (Novolin R) 4 unit SC AC [facility] Last Admin: 11/29/17 11:52 Dose: Not Given Ketorolac Tromethamine (Toradol) 15 mg IVP Q6 PRN PRN Reason: Pain, moderate (4-7) Last Admin: 11/28/17 05:54 Dose: 15 mg Ketorolac Tromethamine (Toradol) 30 mg IVP Q6 PRN PRN Reason: Pain, severe (8-10) Last Admin: 11/29/17 08:13 Dose: 30 mg Mirtazapine (Remeron) 30 mg PO HS [facility] Last Admin: 11/28/17 21:29 Dose: 30 mg Pantoprazole Sodium (Protonix Inj) 40 mg IVP DAILY [facility] Last Admin: 11/29/17 09:29 Dose: 40 mg Saccharomyces Boulardii (Florastor) 250 mg PO BID [facility] Last Admin: 11/29/17 09:30 Dose: Not Given - Labs Labs: 11/29/17 06:40 11/29/17 06:40 PT 12.5 SECONDS (9.7-12.2) H 11/28/17 14:24 INR 1.1 11/28/17 14:24 APTT 26 SECONDS (21-34) 11/28/17 14:24 - Additional Findings Additional findings: - Constitutional Appears: Non-toxic, No Acute Distress, Unkempt, Cachectic - Head Exam Head Exam: ATRAUMATIC, NORMAL INSPECTION, NORMOCEPHALIC - Eye Exam Eye Exam: EOMI, Normal appearance, PERRL - ENT Exam ENT Exam: Mucous Membranes Moist - Respiratory Exam Respiratory Exam: Clear to Ausculation Bilateral, NORMAL BREATHING PATTERN - Cardiovascular Exam Cardiovascular Exam: RRR, +S1, +S2. absent: Gallop, Rubs, Murmur - GI/Abdominal Exam GI & Abdominal Exam: Guarding (voluntary), Soft, Tenderness (RLQ > RUQ ), Normal Bowel Sounds. absent: Distended - Extremities Exam Extremities Exam: Tenderness (B/L from knees down ). absent: Pedal Edema - Neurological Exam Neurological Exam: Alert, Awake, Motor Sensory Deficit (decreased sensation of the planter surface of the right foot) - Psychiatric Exam Psychiatric exam: Normal Affect, Normal Mood - Skin Skin Exam: Dry, Intact, Normal Color, Warm Assessment and Plan - Assessment and Plan (Free Text) Plan: Disposition: Patient s/p perianal abscess I&D on 11/29; patient will likely go home tomorrow after packing change Crohn's Disease with possible perianal abscess * Patient sees Dr. Veloz as an outpatient and has an appointment with him 12/09 according to the patient * Stool occult blood negative * Stool culture pending * Surgery (Dr. Silver) consulted; help appreciated * Patient had abscess I&D 11/29 - PLEASE DO NOT GIVE NARCOTICS POST OP. TORADOL ONLY PLEASE. * GI (Dr. Duran) consulted; help appreciated Imaging * CT Abdomen/Pelvis with PO and IV contrast Meds/Fluids: * Ciprofloxacin 400 mg IV Q12H * Flagyl 250 mg IV Q8H History of DM type 1 * Initially admitted to the ICU for DKA which has resolved * Lantus 7 units SC HS * Regular Insulin 4 units AC Meals * HbA1c 16.3 * Lipid Panel: Trig 66, Chol 120, LDL 53, HDL 46 * TSH/Free T4: 0.77/1.29 Hypokalemia * resolved * Will monitor with morning labs and replace potassium/magnesium as needed Prolonged QT * Seen on EKG * Avoid QT prolonging drugs if possible History of Schizophrenia/Bipolar Disorder/Anxiety/Depression * Psychiatry consulted (Dr. Marion), help appreciated * Patient says he is on Seroquel and Trazadone prescribed to him by Dr. Barnett - this was stopped in July due to prolonged QT and he was started on Lexapro and Remeron - patient says after discharge he was started back on his old medications, however currently he has not taken this for 1 month Prophylaxis * Toradol 15 mg IV Q6H PRN Moderate Pain * Toradol 30 mg IV Q6H PRN Severe Pain * SCDs * Protonix 40 mg IV 1x/day * Florastor 250 mg PO 2x/day * Heart Healthy, Low Carb Diet * Nursing Order Placed: NO NARCOTICS and NO BENADRYL <Misbah Romero - Last Filed: 11/29/17 20:59> Objective - Vital Signs/Intake and Output Vital Signs (last 24 hours): Temp Pulse Resp BP Pulse Ox 97.7 F 70 20 96/63 L 99 11/29/17 16:00 11/29/17 16:00 11/29/17 16:00 11/29/17 16:00 11/29/17 16:00 Intake and Output: 11/29/17 11/30/17 18:59 06:59 Intake Total 450 Balance 450 - Medications Medications: Current Medications Ciprofloxacin (Cipro 400mg/200ml Dsw) 400 mg in 200 mls @ 133 mls/hr IVPB Q12H JOHANA PRN Reason: Protocol Last Admin: 11/29/17 20:15 Dose: 133 mls/hr Metronidazole 250 mg/ (Miscellaneous) 50 mls @ 100 mls/hr IVPB Q8 JOHANA PRN Reason: Protocol Last Admin: 11/29/17 13:13 Dose: Not Given Insulin Glargine (Lantus) 7 unit SC HS [facility] Last Admin: 11/28/17 21:27 Dose: 7 units Insulin Human Regular (Novolin R) 4 unit SC AC [facility] Last Admin: 11/29/17 17:53 Dose: 4 unit Ketorolac Tromethamine (Toradol) 15 mg IVP Q6 PRN PRN Reason: Pain, moderate (4-7) Last Admin: 11/28/17 05:54 Dose: 15 mg Ketorolac Tromethamine (Toradol) 30 mg IVP Q6 PRN PRN Reason: Pain, severe (8-10) Last Admin: 11/29/17 17:58 Dose: 30 mg Mirtazapine (Remeron) 30 mg PO HS [facility] Last Admin: 11/28/17 21:29 Dose: 30 mg Pantoprazole Sodium (Protonix Inj) 40 mg IVP DAILY [facility] Last Admin: 11/29/17 09:29 Dose: 40 mg Saccharomyces Boulardii (Florastor) 250 mg PO BID [facility] Last Admin: 11/29/17 17:52 Dose: 250 mg - Labs Labs: 11/29/17 06:40 11/29/17 06:40 PT 12.5 SECONDS (9.7-12.2) H 11/28/17 14:24 INR 1.1 11/28/17 14:24 APTT 26 SECONDS (21-34) 11/28/17 14:24 Attending/Attestation - Attestation I have personally seen and examined this patient.: Yes I have fully participated in the care of the patient.: Yes I have reviewed all pertinent clinical information, including history, physical exam and plan: Yes Notes (Text): 11/29/17 20:58 Patient was seen and examined shortly before he was taken down for I&D of perianal abscess. Exam, assessment and plan were discussed with Resident Dr. Og Hand Plan for discharge 11/30/17 after clearance from Surgery Team. Misbah Romero D.O.
[2017-11-29] MEDS: (Lantus) Insulin Glargine, Recombinant SC SCH (21:49)
--- NOTE | 2017-11-30 02:26 | OP ---
PROCEDURE DATE: 11/29/2017 PREOPERATIVE DIAGNOSIS: Perianal abscess. POSTOPERATIVE DIAGNOSIS: Perianal abscess. PROCEDURE DONE: 1. Excision and drainage of perianal abscess. 2. Excision and debridement of the perianal wound, approximately 4 x 2 x 2 cm size. TYPE OF ANESTHESIA: Local anesthesia plus sedation. ESTIMATED BLOOD LOSS: Around 10 mL. DRAINS: None. PATHOLOGY: Pus was sent for the culture and sensitivity. Debrided tissue was also sent for culture and pathology. COMPLICATIONS: None. INTRAOPERATIVE FLINGING: The patient had approximately 4 x 2 cm abscess perianally and posteriorly. DESCRIPTION OF PROCEDURE: On intraoperative steps, this is a 27-year-old male who was diagnosed with perianal abscess, and the patient was consented for incision and drainage, brought to the OR, placed in left lateral position. The perianal area was prepped and draped. After induction of sedation, the local anesthesia was injected and the cruciate-shaped incision was made after incising skin, subcutaneous tissue, and the abscess cavity was entered, and the pus was drained and the cavity was debrided with blunt and sharp dissection, and the debrided tissue was sent to the pathology. Wound was irrigated. Hemostasis was achieved and the wound was packed with iodoform packing. Dry sterile dressing was applied. The patient tolerated the procedure well. Count of the instrument and gauze was correct. John Silver MD
[2017-11-30] MEDS: metroNIDAZOLE IV 500 mg/100 ml 250 MG in Premixed IV 1 EA IVPB SCH ×2 (05:33→13:37)
[2017-11-30 07:03] LABS: BASO # 0.1 K/uL (0.0-0.2); BASO % 0.9 % (0.0-2.0); EOS # 0.2 K/uL (0.0-0.7); EOS % 2.3 % (0.0-4.0); HEMOGLOBIN 13.4 g/dL (12.0-18.0); LYMPH # 1.5 K/uL (1.0-4.3); LYMPH % 22.5 % (20.0-40.0); MEAN CELL VOLUME 88.8 fL (80.0-94.0); MEAN CORPUSCULAR HEMOGLOBIN 30.2 pg (27.0-31.0); MEAN PLATELET VOLUME 8.4 fL (7.2-11.7); MONO # 0.7 K/uL (0.0-0.8); MONO % 10.9 % (0.0-10.0); NEUT # 4.3 K/uL (1.8-7.0); NEUT % 63.4 % (50.0-75.0); RBC 4.45 Mil/uL (4.40-5.90); WHITE BLOOD COUNT 6.8 K/uL (4.8-10.8)
[2017-11-30 07:28] LABS: BLOOD UREA NITROGEN 9 mg/dL (9-20); CALCIUM 8.7 mg/dl (8.6-10.4); GFR AFRICAN-AMERICAN > 60; GFR NON-AFRICAN AMERICAN > 60
[2017-11-30 07:40] VITALS: RESP 20; TEMP 98.2
[2017-11-30] MEDS: Ciprofloxacin 400mg/200ml D5W 400 MG/200 ML BAG IVPB SCH (07:42)
[2017-11-30] MEDS: (Novolin R) Insulin Human Regular 100 units/ml vial SC SCH ×2 (07:44→12:46)
--- NOTE | 2017-11-30 09:46 | CP.PCM.PN ---
Subjective - Date & Time of Evaluation Date of Evaluation: 11/30/17 Time of Evaluation: 06:30 - Subjective Subjective: Patient seen and examined at bedside this AM. No adverse events overnight. Patient denies any fevers, chills, or any other symptoms, Perirectal pain is improving. Objective - Vital Signs/Intake and Output Vital Signs (last 24 hours): Temp Pulse Resp BP Pulse Ox 98.2 F 64 20 104/69 99 11/30/17 07:39 11/30/17 07:39 11/30/17 07:39 11/30/17 07:39 11/30/17 07:39 Intake and Output: 11/30/17 11/30/17 06:59 18:59 Intake Total 1110 Balance 1110 - Medications Medications: Current Medications Ciprofloxacin (Cipro 400mg/200ml Dsw) 400 mg in 200 mls @ 133 mls/hr IVPB Q12H [facility]OHANA PRN Reason: Protocol Last Admin: 11/30/17 07:42 Dose: 133 mls/hr Metronidazole 250 mg/ (Miscellaneous) 50 mls @ 100 mls/hr IVPB Q8 [facility]OHANA PRN Reason: Protocol Last Admin: 11/30/17 05:33 Dose: 100 mls/hr Insulin Glargine (Lantus) 7 unit SC HS [facility] Last Admin: 11/29/17 21:49 Dose: 7 units Insulin Human Regular (Novolin R) 4 unit SC AC [facility] Last Admin: 11/30/17 07:44 Dose: 4 unit Ketorolac Tromethamine (Toradol) 15 mg IVP Q6 PRN PRN Reason: Pain, moderate (4-7) Last Admin: 11/28/17 05:54 Dose: 15 mg Ketorolac Tromethamine (Toradol) 30 mg IVP Q6 PRN PRN Reason: Pain, severe (8-10) Last Admin: 11/30/17 06:07 Dose: 30 mg Mirtazapine (Remeron) 30 mg PO HS [facility] Last Admin: 11/29/17 21:49 Dose: 30 mg Pantoprazole Sodium (Protonix Inj) 40 mg IVP DAILY [facility] Last Admin: 11/29/17 09:29 Dose: 40 mg Saccharomyces Boulardii (Florastor) 250 mg PO BID [facility] Last Admin: 11/29/17 17:52 Dose: 250 mg - Labs Labs: 11/30/17 06:58 11/30/17 06:56 PT 12.5 SECONDS (9.7-12.2) H 11/28/17 14:24 INR 1.1 11/28/17 14:24 APTT 26 SECONDS (21-34) 11/28/17 14:24 - Constitutional Appears: Well, Non-toxic, No Acute Distress - Head Exam Head Exam: ATRAUMATIC, NORMOCEPHALIC - Eye Exam Eye Exam: Normal appearance. absent: Conjunctival injection, Scleral icterus - ENT Exam ENT Exam: Mucous Membranes Moist, Normal Oropharynx - Respiratory Exam Respiratory Exam: NORMAL BREATHING PATTERN. absent: Accessory Muscle Use, Respiratory Distress - GI/Abdominal Exam GI & Abdominal Exam: absent: Distended - Rectal Exam Additional comments: inciision site with improving surrounding erythema, moderate amount of sero- purulent drainage, no bleeding - Extremities Exam Extremities Exam: absent: Calf Tenderness, Pedal Edema - Neurological Exam Neurological Exam: Alert, Awake, Oriented x3 - Psychiatric Exam Psychiatric exam: Normal Affect, Normal Mood - Skin Skin Exam: Dry, Intact (except as noted above), Normal Color, Warm Assessment and Plan - Assessment and Plan (Free Text) Assessment: 27M with perirectal abscess Plan: Patient is clear for discharge from a surgical standpoint with PO antibiotics Follow up jose Silver in his office in 2 weeks Recommend no narcotic pain medications--patient may take advil or tylenol for pain Medical management per primary Thank you for this consult Discussed with Dr. Nadeem Reynolds, PGY2
--- NOTE | 2017-11-30 10:34 | CP.PCM.DIS ---
<Sakina Hand - Last Filed: 11/30/17 10:25> Provider - Provider Date of Admission: 11/26/17 18:23 Attending physician: Sharif Darden MD Consults: Dr. Sanam Silver Time Spent in preparation of Discharge (in minutes): 35 Diagnosis - Discharge Diagnosis (1) Perianal abscess Status: Acute (2) DKA (diabetic ketoacidoses) Status: Acute Hospital Course - Lab Results Lab Results: Micro Results 11/27/17 Unknown Naris MRSA Culture - Final MRSA NOT DETECTED 11/26/17 21:50 Nose MRSA Culture (Admit) - Final MRSA NOT DETECTED Most Recent Lab Values WBC 6.8 K/uL (4.8-10.8) 11/30/17 06:58 RBC 4.45 Mil/uL (4.40-5.90) 11/30/17 06:58 Hgb 13.4 g/dL (12.0-18.0) 11/30/17 06:58 Hct 39.5 % (35.0-51.0) 11/30/17 06:58 MCV 88.8 fL (80.0-94.0) 11/30/17 06:58 MCH 30.2 pg (27.0-31.0) 11/30/17 06:58 MCHC 34.0 g/dL (33.0-37.0) 11/30/17 06:58 RDW 14.0 % (11.5-14.5) 11/30/17 06:58 Plt Count 295 K/uL (130-400) 11/30/17 06:58 MPV 8.4 fL (7.2-11.7) 11/30/17 06:58 Neut % (Auto) 63.4 % (50.0-75.0) 11/30/17 06:58 Lymph % (Auto) 22.5 % (20.0-40.0) 11/30/17 06:58 [place] % (Auto) 10.9 % (0.0-10.0) H 11/30/17 06:58 Eos % (Auto) 2.3 % (0.0-4.0) 11/30/17 06:58 Baso % (Auto) 0.9 % (0.0-2.0) 11/30/17 06:58 Neut # (Auto) 4.3 K/uL (1.8-7.0) 11/30/17 06:58 Lymph # (Auto) 1.5 K/uL (1.0-4.3) 11/30/17 06:58 [place] # (Auto) 0.7 K/uL (0.0-0.8) 11/30/17 06:58 Eos # (Auto) 0.2 K/uL (0.0-0.7) 11/30/17 06:58 Baso # (Auto) 0.1 K/uL (0.0-0.2) 11/30/17 06:58 Neutrophils % (Manual) 73 % (50-75) 11/28/17 06:38 Band Neutrophils % 8 % (0-2) H 11/28/17 06:38 Lymphocytes % (Manual) 3 % (20-40) L 11/28/17 06:38 Reactive Lymphs % 4 % (0-0) H 11/28/17 06:38 Monocytes % (Manual) 8 % (0-10) 11/28/17 06:38 Eosinophils % (Manual) 3 % (0-4) 11/28/17 06:38 Basophils % (Manual) 1 % (0-2) 11/28/17 06:38 Toxic Granulation Present 11/28/17 06:38 Platelet Estimate Normal (NORMAL) 11/28/17 06:38 Large Platelets Present 11/26/17 16:39 RBC Morphology Normal 11/27/17 05:56 Anisocytosis (manual) Slight 11/26/17 16:39 Microcytosis (manual) Slight 11/26/17 16:39 Macrocytosis (manual) Slight 11/26/17 16:39 PT 12.5 SECONDS (9.7-12.2) H 11/28/17 14:24 INR 1.1 11/28/17 14:24 APTT 26 SECONDS (21-34) 11/28/17 14:24 pO2 29 mm/Hg (30-55) L 11/26/17 16:40 VBG pH 7.18 (7.32-7.43) L* 11/26/17 16:40 VBG pCO2 31 mmHg (40-60) L 11/26/17 16:40 VBG HCO3 11.2 mmol/L 11/26/17 16:40 VBG Total CO2 12.6 mmol/L (22-28) L 11/26/17 16:40 VBG O2 Sat (Calc) 61.9 % (40-65) 11/26/17 16:40 VBG Base Excess -15.5 mmol/L (0.0-2.0) L 11/26/17 16:40 VBG Potassium 4.2 mmol/L (3.6-5.2) 11/26/17 16:40 Sodium 134.0 mmol/l (132-148) 11/26/17 16:40 Chloride 90.0 mmol/L (98-107) L 11/26/17 16:40 Glucose 560 mg/dl (75-110) H* D 11/26/17 16:40 Lactate 3.1 mmol/L (0.7-2.1) H 11/26/17 16:40 Crit Value Called To Valeria storm 11/26/17 16:40 Crit Value Called By Luzma head of partner development 11/26/17 16:40 Crit Value Read Back Y 11/26/17 16:40 Blood Gas Notified Time 1655 11/26/17 16:40 Sodium 138 mmol/L (132-148) 11/30/17 06:56 Potassium 4.3 mmol/L (3.6-5.2) 11/30/17 06:56 Chloride 98 mmol/L (98-107) 11/30/17 06:56 Carbon Dioxide 29 mmol/L (22-30) 11/30/17 06:56 Anion Gap 15 (10-20) 11/30/17 06:56 BUN 9 mg/dL (9-20) 11/30/17 06:56 Creatinine 0.7 mg/dL (0.8-1.5) L 11/30/17 06:56 Est GFR ( Amer) > 60 11/30/17 06:56 Est GFR (Non-Af Amer) > 60 11/30/17 06:56 POC Glucose (mg/dL) 355 mg/dL (65-110) H 11/30/17 07:07 Random Glucose 322 mg/dL (75-110) H 11/30/17 06:56 Hemoglobin A1c 16.3 % (4.2-6.5) H 11/28/17 06:38 Calcium 8.7 mg/dl (8.6-10.4) 11/30/17 06:56 Phosphorus 4.1 mg/dL (2.5-4.5) 11/30/17 06:56 Magnesium 2.1 mg/dL (1.6-2.3) 11/30/17 06:56 Total Bilirubin 0.5 mg/dL (0.2-1.3) 11/27/17 05:56 AST 18 U/L (17-59) 11/27/17 05:56 ALT 22 U/L (21-72) 11/27/17 05:56 Alkaline Phosphatase 108 U/L (38-126) 11/27/17 05:56 Total Protein 6.9 g/dL (6.3-8.3) 11/27/17 05:56 Albumin 3.4 g/dL (3.5-5.0) L D 11/27/17 05:56 Globulin 3.5 gm/dL (2.2-3.9) 11/27/17 05:56 Albumin/Globulin Ratio 1.0 (1.0-2.1) 11/27/17 05:56 Triglycerides 66 mg/dL (0-149) D 11/28/17 06:38 Cholesterol 120 mg/dL (0-199) 11/28/17 06:38 LDL Cholesterol Direct 53 mg/dL (0-129) 11/28/17 06:38 HDL Cholesterol 46 mg/dL (30-70) 11/28/17 06:38 Free T4 1.29 ng/dL (0.78-2.19) 11/28/17 06:38 TSH 3rd Generation 0.77 mIU/L (0.46-4.68) 11/28/17 06:38 Venous Blood Potassium 4.2 mmol/L (3.6-5.2) 11/26/17 16:40 Urine Color Colorless (YELLOW) 11/26/17 18:53 Urine Clarity Clear (Clear) 11/26/17 18:53 Urine pH 5.0 (5.0-8.0) 11/26/17 18:53 Ur Specific [place] 1.027 (1.003-1.030) 11/26/17 18:53 Urine Protein Negative mg/dL (NEGATIVE) 11/26/17 18:53 Urine Glucose (UA) 3+ mg/dL (Normal) H 11/26/17 18:53 Urine Ketones 2+ mg/dL (NEGATIVE) H 11/26/17 18:53 Urine Blood Negative (NEGATIVE) 11/26/17 18:53 Urine Nitrate Negative (NEGATIVE) 11/26/17 18:53 Urine Bilirubin Negative (NEGATIVE) 11/26/17 18:53 Urine Urobilinogen Normal mg/dL (0.2-1.0) 11/26/17 18:53 Ur Leukocyte Esterase Neg Shelly/uL (Negative) 11/26/17 18:53 Urine WBC (Auto) < 1 /hpf (0-5) 11/26/17 18:53 Urine RBC (Auto) < 1 /hpf (0-3) 11/26/17 18:53 Ur Squamous Epith Cells < 1 /hpf (0-5) 11/26/17 18:53 Stool Occult Blood Negative (NEGATIVE) 11/26/17 16:51 Urine Opiates Screen Positive (NEGATIVE) H 11/27/17 14:37 Urine Methadone Screen Negative (NEGATIVE) 11/27/17 14:37 Ur Barbiturates Screen Negative (NEGATIVE) 11/27/17 14:37 Ur Phencyclidine Scrn Negative (NEGATIVE) 11/27/17 14:37 Ur Amphetamines Screen Negative (NEGATIVE) 11/27/17 14:37 U Benzodiazepines Scrn Negative (NEGATIVE) 11/27/17 14:37 U Oth Cocaine Metabols Negative (NEGATIVE) 11/27/17 14:37 U Cannabinoids Screen Positive (NEGATIVE) H 11/27/17 14:37 Serum Ketones Moderate (NEGATIVE) 11/26/17 17:29 - Hospital Course Hospital Course: Upon admission: 27 year old male with past medical history of Type I diabetes, Crohn's disease, Marijuana abuse, bipolar disorder, and depression present to the hospital today complaining of shortness of breath and dark red diarrhea. Patient states his symptoms started suddenly yesterday when he woke up in the morning. He states the shortness of breath does not improve or worsen with positional changes. He denies of having coughs or chest pain. Patient reports to have frequent diarrhea since he was diagnosed with Crohn's disease at age 20. Patient state he goes about 5-10 times daily in average, depending on his oral intake. Patient 's dark red diarrhea started 2 days ago, shortly after having some steak. Patient describes his diarrhea is dark red and more solid than usual. Patient also complains of pain in his perianal region. Patient states he has been compliant with his insulins daily. Patient further denies fever, chills, or headache. Hospital course: Patient was admitted to the ICU for DKA secondary to perianal abscess. Patient was started on antibiotics (cipro & flagyl), insulin drip, IV fluid. GI and General surgery were consulted. Patient's anion gap was corrected and he was switched to weight based insulin and transferred to the medical floor. General surgery scheduled the patient for I&D of perianal abscess which was done 11/29. Patient was kept overnight to remove packing in the morning and then cleared for discharge by Dr. Romero and all consults. Copied below is the most recent medical team assessment and plan for better understanding of the patient's stay: Crohn's Disease with possible perianal abscess * Patient sees Dr. Veloz as an outpatient and has an appointment with him 12/09 according to the patient * Stool occult blood negative * Stool culture pending * Surgery (Dr. Silver) consulted; help appreciated * Patient had abscess I&D 11/29 - PLEASE DO NOT GIVE NARCOTICS POST OP. TORADOL ONLY PLEASE. * GI (Dr. Duran) consulted; help appreciated Imaging * CT Abdomen/Pelvis with PO and IV contrast Meds/Fluids: * Ciprofloxacin 400 mg IV Q12H * Flagyl 250 mg IV Q8H History of DM type 1 * Initially admitted to the ICU for DKA which has resolved * Lantus 7 units SC HS * Regular Insulin 4 units AC Meals * HbA1c 16.3 * Lipid Panel: Trig 66, Chol 120, LDL 53, HDL 46 * TSH/Free T4: 0.77/1.29 Hypokalemia * resolved * Will monitor with morning labs and replace potassium/magnesium as needed Prolonged QT * Seen on EKG * Avoid QT prolonging drugs if possible History of Schizophrenia/Bipolar Disorder/Anxiety/Depression * Psychiatry consulted (Dr. Marion), help appreciated * Patient says he is on Seroquel and Trazadone prescribed to him by Dr. Barnett - this was stopped in July due to prolonged QT and he was started on Lexapro and Remeron - patient says after discharge he was started back on his old medications, however currently he has not taken this for 1 month Prophylaxis * Toradol 15 mg IV Q6H PRN Moderate Pain * Toradol 30 mg IV Q6H PRN Severe Pain * SCDs * Protonix 40 mg IV 1x/day * Florastor 250 mg PO 2x/day * Heart Healthy, Low Carb Diet * Nursing Order Placed: NO NARCOTICS and NO BENADRYL Upon Discharge: Patient cleared for discharge by Dr. Romero and all consults. Patient was sent home with the following instructions: Please take only the following medications as prescribed to you: Cipro 500 mg by mouth twice a day at breakfast and dinner Flagyl 500 mg by mouth three times a day at breakfast, lunch, and dinner Florastor 250 mg by mouth twice daily, 2 hours after breakfast and 2 hours before dinner Toradol 10 mg by mouth every 6 hours as needed for severe pain Protonix 40 mg by mouth daily if using toradol Lantus 7 units subcutaneously at night Regular insulin 4 units before breakfast, lunch, and dinner Remeron 30 mg by mouth at bedtime Please follow up with your PCP, Dr. Barnett, in 7 days. Please follow up with Dr. Veloz on 12/09/17, as already scheduled. Please follow up with Dr. Silver in 14 days: . Please note that this is a summary of events. For more details, please see complete medical record. Discharge Exam - Head Exam Head Exam: ATRAUMATIC, NORMOCEPHALIC - Eye Exam Eye Exam: EOMI, Normal appearance, PERRL - Respiratory Exam Respiratory Exam: Clear to PA & Lateral, NORMAL BREATHING PATTERN, UNREMARKABLE - Cardiovascular Exam Cardiovascular Exam: RRR, +S1, +S2 - GI/Abdominal Exam GI & Abdominal Exam: Normal Bowel Sounds, Unremarkable - Extremities Exam Extremities exam: normal inspection - Neurological Exam Neurological exam: Alert, Oriented x3 - Psychiatric Exam Psychiatric exam: Normal Affect, Normal Mood - Skin Skin Exam: Dry, Intact, Normal Color, Warm Discharge Plan - Discharge Medications Prescriptions: Ciprofloxacin HCl [Cipro] 500 mg PO BID #20 tablet Insulin Glargine, Recombina [Lantus] 7 unit SC HS #1 bottle Insulin Human Regular [Novolin R] 4 unit SC AC #1 bottle Ketorolac Tromethamine [Toradol] 10 mg PO Q6 PRN #20 tab PRN Reason: Pain, Severe (8-10) Metronidazole [Flagyl] 500 mg PO TID #30 tablet Mirtazapine [Remeron] 30 mg PO HS #30 tab Pantoprazole Sodium [Protonix] 40 mg PO DAILY #30 ect Saccharomyces Boulardi [Florastor] 250 mg PO BID #80 cap - Follow Up Plan Condition: GOOD Disposition: HOME/ ROUTINE Instructions: Insulin Regular, Ciprofloxacin (Systemic), Saccharomyces boulardii, Ketorolac (Systemic), Metronidazole (Systemic), Diabetic Ketoacidosis (DC), Mirtazapine, Pantoprazole, Insulin Glargine Additional Instructions: Please take only the following medications as prescribed to you: Cipro 500 mg by mouth twice a day at breakfast and dinner Flagyl 500 mg by mouth three times a day at breakfast, lunch, and dinner Florastor 250 mg by mouth twice daily, 2 hours after breakfast and 2 hours before dinner Toradol 10 mg by mouth every 6 hours as needed for severe pain Protonix 40 mg by mouth daily if using toradol Lantus 7 units subcutaneously at night Regular insulin 4 units before breakfast, lunch, and dinner Remeron 30 mg by mouth at bedtime Please follow up with your PCP, Dr. Barnett, in 7 days. Please follow up with Dr. Veloz on 12/09/17, as already scheduled. Please follow up with Dr. Silver in 14 days: . Referrals: John Silver MD [Staff Provider] - Jaron Veloz Jr., MD [Medical Doctor] - 2 Weeks <Misbah Romero - Last Filed: 11/30/17 20:25> Provider - Provider Date of Admission: 11/26/17 18:23 Attending physician: Sharif Darden MD Time Spent in preparation of Discharge (in minutes): 40 Hospital Course - Lab Results Lab Results: Micro Results 11/27/17 Unknown Naris MRSA Culture - Final MRSA NOT DETECTED 11/26/17 21:50 Nose MRSA Culture (Admit) - Final MRSA NOT DETECTED Most Recent Lab Values WBC 6.8 K/uL (4.8-10.8) 11/30/17 06:58 RBC 4.45 Mil/uL (4.40-5.90) 11/30/17 06:58 Hgb 13.4 g/dL (12.0-18.0) 11/30/17 06:58 Hct 39.5 % (35.0-51.0) 11/30/17 06:58 MCV 88.8 fL (80.0-94.0) 11/30/17 06:58 MCH 30.2 pg (27.0-31.0) 11/30/17 06:58 MCHC 34.0 g/dL (33.0-37.0) 11/30/17 06:58 RDW 14.0 % (11.5-14.5) 11/30/17 06:58 Plt Count 295 K/uL (130-400) 11/30/17 06:58 MPV 8.4 fL (7.2-11.7) 11/30/17 06:58 Neut % (Auto) 63.4 % (50.0-75.0) 11/30/17 06:58 Lymph % (Auto) 22.5 % (20.0-40.0) 11/30/17 06:58 [place] % (Auto) 10.9 % (0.0-10.0) H 11/30/17 06:58 Eos % (Auto) 2.3 % (0.0-4.0) 11/30/17 06:58 Baso % (Auto) 0.9 % (0.0-2.0) 11/30/17 06:58 Neut # (Auto) 4.3 K/uL (1.8-7.0) 11/30/17 06:58 Lymph # (Auto) 1.5 K/uL (1.0-4.3) 11/30/17 06:58 [place] # (Auto) 0.7 K/uL (0.0-0.8) 11/30/17 06:58 Eos # (Auto) 0.2 K/uL (0.0-0.7) 11/30/17 06:58 Baso # (Auto) 0.1 K/uL (0.0-0.2) 11/30/17 06:58 Neutrophils % (Manual) 73 % (50-75) 11/28/17 06:38 Band Neutrophils % 8 % (0-2) H 11/28/17 06:38 Lymphocytes % (Manual) 3 % (20-40) L 11/28/17 06:38 Reactive Lymphs % 4 % (0-0) H 11/28/17 06:38 Monocytes % (Manual) 8 % (0-10) 11/28/17 06:38 Eosinophils % (Manual) 3 % (0-4) 11/28/17 06:38 Basophils % (Manual) 1 % (0-2) 11/28/17 06:38 Toxic Granulation Present 11/28/17 06:38 Platelet Estimate Normal (NORMAL) 11/28/17 06:38 Large Platelets Present 11/26/17 16:39 RBC Morphology Normal 11/27/17 05:56 Anisocytosis (manual) Slight 11/26/17 16:39 Microcytosis (manual) Slight 11/26/17 16:39 Macrocytosis (manual) Slight 11/26/17 16:39 PT 12.5 SECONDS (9.7-12.2) H 11/28/17 14:24 INR 1.1 11/28/17 14:24 APTT 26 SECONDS (21-34) 11/28/17 14:24 pO2 29 mm/Hg (30-55) L 11/26/17 16:40 VBG pH 7.18 (7.32-7.43) L* 11/26/17 16:40 VBG pCO2 31 mmHg (40-60) L 11/26/17 16:40 VBG HCO3 11.2 mmol/L 11/26/17 16:40 VBG Total CO2 12.6 mmol/L (22-28) L 11/26/17 16:40 VBG O2 Sat (Calc) 61.9 % (40-65) 11/26/17 16:40 VBG Base Excess -15.5 mmol/L (0.0-2.0) L 11/26/17 16:40 VBG Potassium 4.2 mmol/L (3.6-5.2) 11/26/17 16:40 Sodium 134.0 mmol/l (132-148) 11/26/17 16:40 Chloride 90.0 mmol/L (98-107) L 11/26/17 16:40 Glucose 560 mg/dl (75-110) H* D 11/26/17 16:40 Lactate 3.1 mmol/L (0.7-2.1) H 11/26/17 16:40 Crit Value Called To Valeria storm 11/26/17 16:40 Crit Value Called By Luzma head of partner development 11/26/17 16:40 Crit Value Read Back Y 11/26/17 16:40 Blood Gas Notified Time 1655 11/26/17 16:40 Sodium 138 mmol/L (132-148) 11/30/17 06:56 Potassium 4.3 mmol/L (3.6-5.2) 11/30/17 06:56 Chloride 98 mmol/L (98-107) 11/30/17 06:56 Carbon Dioxide 29 mmol/L (22-30) 11/30/17 06:56 Anion Gap 15 (10-20) 11/30/17 06:56 BUN 9 mg/dL (9-20) 11/30/17 06:56 Creatinine 0.7 mg/dL (0.8-1.5) L 11/30/17 06:56 Est GFR ( Amer) > 60 11/30/17 06:56 Est GFR (Non-Af Amer) > 60 11/30/17 06:56 POC Glucose (mg/dL) 313 mg/dL (65-110) H 11/30/17 10:58 Random Glucose 322 mg/dL (75-110) H 11/30/17 06:56 Hemoglobin A1c 16.3 % (4.2-6.5) H 11/28/17 06:38 Calcium 8.7 mg/dl (8.6-10.4) 11/30/17 06:56 Phosphorus 4.1 mg/dL (2.5-4.5) 11/30/17 06:56 Magnesium 2.1 mg/dL (1.6-2.3) 11/30/17 06:56 Total Bilirubin 0.5 mg/dL (0.2-1.3) 11/27/17 05:56 AST 18 U/L (17-59) 11/27/17 05:56 ALT 22 U/L (21-72) 11/27/17 05:56 Alkaline Phosphatase 108 U/L (38-126) 11/27/17 05:56 Total Protein 6.9 g/dL (6.3-8.3) 11/27/17 05:56 Albumin 3.4 g/dL (3.5-5.0) L D 11/27/17 05:56 Globulin 3.5 gm/dL (2.2-3.9) 11/27/17 05:56 Albumin/Globulin Ratio 1.0 (1.0-2.1) 11/27/17 05:56 Triglycerides 66 mg/dL (0-149) D 11/28/17 06:38 Cholesterol 120 mg/dL (0-199) 11/28/17 06:38 LDL Cholesterol Direct 53 mg/dL (0-129) 11/28/17 06:38 HDL Cholesterol 46 mg/dL (30-70) 11/28/17 06:38 Free T4 1.29 ng/dL (0.78-2.19) 11/28/17 06:38 TSH 3rd Generation 0.77 mIU/L (0.46-4.68) 11/28/17 06:38 Venous Blood Potassium 4.2 mmol/L (3.6-5.2) 11/26/17 16:40 Urine Color Colorless (YELLOW) 11/26/17 18:53 Urine Clarity Clear (Clear) 11/26/17 18:53 Urine pH 5.0 (5.0-8.0) 11/26/17 18:53 Ur Specific [place] 1.027 (1.003-1.030) 11/26/17 18:53 Urine Protein Negative mg/dL (NEGATIVE) 11/26/17 18:53 Urine Glucose (UA) 3+ mg/dL (Normal) H 11/26/17 18:53 Urine Ketones 2+ mg/dL (NEGATIVE) H 11/26/17 18:53 Urine Blood Negative (NEGATIVE) 11/26/17 18:53 Urine Nitrate Negative (NEGATIVE) 11/26/17 18:53 Urine Bilirubin Negative (NEGATIVE) 11/26/17 18:53 Urine Urobilinogen Normal mg/dL (0.2-1.0) 11/26/17 18:53 Ur Leukocyte Esterase Neg [place]/uL (Negative) 11/26/17 18:53 Urine WBC (Auto) < 1 /hpf (0-5) 11/26/17 18:53 Urine RBC (Auto) < 1 /hpf (0-3) 11/26/17 18:53 Ur Squamous Epith Cells < 1 /hpf (0-5) 11/26/17 18:53 Stool Occult Blood Negative (NEGATIVE) 11/26/17 16:51 Urine Opiates Screen Positive (NEGATIVE) H 11/27/17 14:37 Urine Methadone Screen Negative (NEGATIVE) 11/27/17 14:37 Ur Barbiturates Screen Negative (NEGATIVE) 11/27/17 14:37 Ur Phencyclidine Scrn Negative (NEGATIVE) 11/27/17 14:37 Ur Amphetamines Screen Negative (NEGATIVE) 11/27/17 14:37 U Benzodiazepines Scrn Negative (NEGATIVE) 11/27/17 14:37 U Oth Cocaine Metabols Negative (NEGATIVE) 11/27/17 14:37 U Cannabinoids Screen Positive (NEGATIVE) H 11/27/17 14:37 Serum Ketones Moderate (NEGATIVE) 11/26/17 17:29 Attending/Attestation - Attestation I have personally seen and examined this patient.: Yes I have fully participated in the care of the patient.: Yes I have reviewed all pertinent clinical information, including history, physical exam and plan: Yes Notes (Text): 11/30/17 20:24 Exam, discharge instructions were gone over with the resident Dr. Eduard Hand
[2017-11-30] MEDS: Saccharomyces Boulardi 250 mg Cap PO SCH (12:49)
[2017-11-30 16:17] VITALS: BP 118/83; PULSE 75; O2SAT 97
[2017-12-01] MEDS ORDERED: Pantoprazole 40 mg EC Tab PO SCH (10:00)
== END 2017-11-30 16:47 | disposition home or self-care (01) | DRG 157 ==
LOC: C.ER 15:43 → C.9E 18:23 → C.9I 18:35 → C.3T 11-27 18:47
PROVIDERS: ADMIT Family Medicine; ATTEND Family Medicine
PROC: 0D9Q0ZZ Drainage of Anus, Open Approach (ICD-10-PCS; principal; 2017-11-29 17:00)
DX: K61.2 Anorectal abscess (principal); E87.6 Hypokalemia; F20.9 Schizophrenia, unspecified; E10.40 Type 1 diabetes mellitus with diabetic neuropathy, unspecified; E10.10 Type 1 diabetes mellitus with ketoacidosis without coma; K50.911 Crohn's disease, unspecified, with rectal bleeding; K61.0 Anal abscess; Z79.4 Long term (current) use of insulin; F12.90 Cannabis use, unspecified, uncomplicated; F17.200 Nicotine dependence, unspecified, uncomplicated; H54.8 Legal blindness, as defined in USA; H91.90 Unspecified hearing loss, unspecified ear; I10 Essential (primary) hypertension; K62.89 Other specified diseases of anus and rectum; F12.10 Cannabis abuse, uncomplicated

== ENCOUNTER 2018-01-29 09:40 | Inpatient (IN) | payer MEDICAID ==
[2018-01-29 09:46] VITALS: BMI 16.7
[2018-01-29] MEDS ORDERED: Sodium Chloride 0.9% 1,000 ML IV STA (09:55)
[2018-01-29] MEDS ORDERED: (Novolin R) Insulin Human Regular 100 units/ml vial IV STA (09:55)
[2018-01-29] MEDS ORDERED: (Novolin R) Insulin Human Regular 100 units/ml vial ONE (10:13)
[2018-01-29 10:14] LABS: BASO # 0.1 K/uL (0.0-0.2); BASO % 1.2 % (0.0-2.0); EOS # 0.1 K/uL (0.0-0.7); EOS % 1.4 % (0.0-4.0); LYMPH # 1.9 K/uL (1.0-4.3); LYMPH % 26.7 % (20.0-40.0); MEAN CELL VOLUME 88.5 fL (80.0-94.0); MEAN CORPUSCULAR HEMOGLOBIN 29.5 pg (27.0-31.0); MEAN CORPUSCULAR HGB CONC 33.3 g/dL (33.0-37.0); MEAN PLATELET VOLUME 10.1 fL (7.2-11.7); MONO # 0.5 K/uL (0.0-0.8); MONO % 6.5 % (0.0-10.0); NEUT # 4.6 K/uL (1.8-7.0); NEUT % 64.2 % (50.0-75.0); NRBC % 0.1 % (0.0-2.0); RBC 5.69 Mil/uL (4.40-5.90); RED CELL DISTRIBUTION WIDTH 13.5 % (11.5-14.5); WHITE BLOOD COUNT 7.1 K/uL (4.8-10.8)
[2018-01-29] MEDS ORDERED: Sodium Chloride 0.9% 1,000 ML ONE (10:14)
--- NOTE | 2018-01-29 10:14 | C.PDOC ---
History Of Present Illness 27 y/o male with PMHx of IDDM and Crohn's disease presents to ED for complaints of abdominal pain associated with nausea and SOB that began two days ago. Patient states he did not take his medication this morning. Denies chest pain or fever. Chief Complaint (Nursing): Abdominal Pain History Per: Patient History/Exam Limitations: no limitations Onset/Duration Of Symptoms: Hrs Current Symptoms Are (Timing): Still Present Location Of Pain/Discomfort: Diffuse Radiation Of Pain To:: None Quality Of Discomfort: "Pain" Associated Symptoms: Nausea. denies: Fever, Chills, Vomiting, Diarrhea, Urinary Symptoms Exacerbating Factors: None Alleviating Factors: None Last Bowel Movement: Yesterday Recent travel outside of the [place]: No Past Medical History Reviewed: Historical Data, Nursing Documentation, Vital Signs Vital Signs: Last Vital Signs Temp 98.0 F 01/29/18 09:46 Pulse 91 H 01/29/18 10:46 Resp 16 01/29/18 10:46 BP 113/62 01/29/18 10:46 Pulse Ox 99 01/29/18 11:05 - Medical History PMH: Anxiety, Bipolar Disorder, Crohn's Disease, Depression, Diabetes (Type 1), HTN, Schizophrenia - [facility] (07/21/17) (07/21/17) DRAINAGE OF ANUS, OPEN APPROACH (11/26/17) Family History: States: Unknown Family Hx - Social History Hx Tobacco Use: No Hx Alcohol Use: No Hx Substance Use: Yes (smokes marijuana occasionally for chronic pain) - Immunization History Hx Tetanus Toxoid Vaccination: Yes Hx Influenza Vaccination: Yes Hx Pneumococcal Vaccination: Yes Review Of Systems Constitutional: Negative for: Fever, Chills Cardiovascular: Negative for: Chest Pain Respiratory: Positive for: Shortness of Breath Gastrointestinal: Positive for: Nausea, Abdominal Pain. Negative for: Vomiting , Diarrhea Skin: Negative for: Rash Neurological: Negative for: Weakness, Numbness Physical Exam - Physical Exam Appears: Non-toxic, In Acute Distress, Chronically Ill, Other (Thin; SOB; fruity smell on breath ) Skin: Warm, Dry, No Rash Head: Atraumatic, Normacephalic Eye(s): bilateral: Normal Inspection, PERRL, EOMI Nose: Normal, No Discharge Oral Mucosa: Moist Throat: Normal, No Erythema, No Exudate Neck: Supple Chest: Symmetrical, No Tenderness Cardiovascular: Rhythm Regular, No Murmur Respiratory: Normal Breath Sounds, No Decreased Breath Sounds, No Rales, No Rhonchi, No Wheezing Gastrointestinal/Abdominal: Soft, No Tenderness Extremity: Normal ROM, No Swelling Extremity: Bilateral: Atraumatic, Normal Color And Temperature, Normal ROM Pulses: Left Radial: Normal, Right Radial: Normal Neurological/Psych: Oriented x3 (Awake and Alert), Normal Speech (Speaking in full sentences ), Other (No focal deficits ) Gait: Steady ED Course And Treatment - Laboratory Results Result Diagrams: 01/29/18 10:09 01/29/18 10:09 O2 Sat by Pulse Oximetry: 99 (RA) Pulse Ox Interpretation: Normal Progress Note: Administered Insulin 6 unit IV, Zofran, and IV fluids. Ordered BG, blood work, CXR, and urinalysis. Spoke with Dr. Sloan which advised admission. Spoke with medicine foot and ankle surgeon, Holland Hamlin. She accepted patient for admission. Patient will be admitted. Disposition - Disposition Disposition Time: 11:03 Condition: SERIOUS Forms: [facility] (Uzbek) - Clinical Impression Clinical Impression: DKA (diabetic ketoacidoses) - PA / MANUFACTURING SUPERVISOR 2ND SHIFT / Resident Statement MD/DO has reviewed & agrees with the documentation as recorded. - Scribe Statement The provider has reviewed the documentation as recorded by the tOisibsonia Quarles All medical record entries made by the Otisibsonia were at my direction and personally dictated by me. I have reviewed the chart and agree that the record accurately reflects my personal performance of the history, physical exam, medical decision making, and the department course for this patient. I have also personally directed, reviewed, and agree with the discharge instructions and disposition. Decision To Admit - Pt Status Changed To: Hospital Disposition Of: Inpatient - Admit Certification Admit to Inpatient:: After my assessment, the patient will require hospitalization for at least two midnights. This is because of the severity of symptoms shown, intensity of services needed, and/or the medical risk in this patient being treated as an outpatient. - InPatient: Physician Admission Certification:: severe DKA, ICU admission - . Bed Request Type: ICU Admitting Physician: Maria Salvador Patient Diagnosis: DKA (diabetic ketoacidoses)
[2018-01-29 10:18] LABS: VENOUS BLOOD GAS BASE EXCESS -16.6 mmol/L (0.0-2.0); VENOUS BLOOD GAS PCO2 35 mmHg (40-60); VENOUS BLOOD GAS PO2 23 mm/Hg (30-55); VENOUS BLOOD PH 7.13 (7.32-7.43)
[2018-01-29 10:18] LABS: HEMOGLOBIN 16.8 g/dL (12.0-18.0)
[2018-01-29] MEDS ORDERED: Insulin Human Regular 100 UNIT in Sodium Chloride 0.9% 99 ML IV STA ×2 (10:36→13:56)
[2018-01-29 10:37] LABS: ALB/GLOB RATIO 1.6 (1.0-2.1); ALBUMIN 5.1 g/dL (3.5-5.0); AST/SGOT 26 U/L (17-59); BLOOD UREA NITROGEN 11 mg/dL (9-20); CALCIUM 9.3 mg/dl (8.6-10.4); GFR AFRICAN-AMERICAN > 60; GFR NON-AFRICAN AMERICAN > 60
[2018-01-29] MEDS ORDERED: Morphine 4 MG/ML VIAL ONE (10:46)
[2018-01-29 10:48] LABS: ALT/SGPT 57 U/L (21-72)
--- NOTE | 2018-01-29 10:54 | CP.PCM.CON ---
History of Present Illness - History of Present Illness History of Present Illness: Critical Care Progress Note This is a 27 year old male with PMHx OF IDDM on insulin, Crohn's Disease, Bipolar and Depression who presents with nausea, shortness of breath, and abdominal pain x2 days. Patient reports he is compliant with his medications. Patient admits to nausea, chest discomfort, SOB, abdominal pain. Denied fever, chills, headache, v/d/c, or urinary symptoms. PMD: Dr. 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) - RENAL Hx Chronic Kidney Disease: No - ENDOCRINE/METABOLIC Hx Endocrine Disorders: Yes Hx Diabetes Mellitus Type 1: Yes (insulin dependent) - HEMATOLOGICAL/ONCOLOGICAL Hx Human Immunodeficiency Virus (HIV): No - INTEGUMENTARY Hx Dermatological Problems: No - MUSCULOSKELETAL/RHEUMATOLOGICAL Hx Musculoskeletal Disorders: No Hx Falls: No - GASTROINTESTINAL Hx Crohn's Disease: Yes - GENITOURINARY/GYNECOLOGICAL Hx Genitourinary Disorders: No - PSYCHIATRIC Hx Anxiety: Yes Hx Bipolar Disorder: Yes Hx Depression: Yes Hx Schizophrenia: Yes Hx Substance Use: Yes (smokes marijuana occasionally for chronic pain) - SURGICAL HISTORY Hx Surgeries: Yes Other/Comment: wired Jaw - ANESTHESIA Hx Anesthesia: Yes Hx Anesthesia Reactions: No Hx Malignant Hyperthermia: No Meds Allergies/Adverse Reactions: Allergies Allergy/AdvReac Type Severity Reaction Status Date / Time No Known Allergies Allergy Verified 11/26/17 16:08 - Medications Medications: Current Medications Sodium Chloride (Sodium Chloride 0.9%) 1,000 mls @ 1,000 mls/hr IV .Q1H STA Stop: 01/29/18 10:54 Last Admin: 01/29/18 10:14 Dose: 1,000 mls/hr Insulin Human Regular 100 unit (/ Sodium Chloride) 100 mls @ 5 mls/hr IV .Q20H STA PRN Reason: 5 UNIT/HR Stop: 01/30/18 06:35 Physical Exam - Constitutional Appears: Toxic - Head Exam Head Exam: NORMAL INSPECTION, NORMOCEPHALIC - Eye Exam Eye Exam: EOMI, Normal appearance, PERRL - ENT Exam ENT Exam: Mucous Membranes Dry - Respiratory Exam Respiratory Exam: NORMAL BREATHING PATTERN - Cardiovascular Exam Cardiovascular Exam: Tachycardia - GI/Abdominal Exam GI & Abdominal Exam: Normal Bowel Sounds, Soft, Tenderness. absent: Distended - Extremities Exam Extremities exam: Positive for: normal inspection, pedal pulses present. Negative for: pedal edema, tenderness - Neurological Exam Neurological exam: Alert, CN II-XII Intact, Oriented x3 - Psychiatric Exam Psychiatric exam: Normal Affect, Normal Mood - Skin Skin Exam: Dry, Intact, Normal Color, Warm Results - Vital Signs Recent Vital Signs: Last Vital Signs Temp 98.0 F 01/29/18 09:46 Pulse 91 H 01/29/18 10:46 Resp 16 01/29/18 10:46 BP 113/62 01/29/18 10:46 Pulse Ox 98 01/29/18 10:46 - Labs Result Diagrams: 01/29/18 10:09 01/29/18 10:09 Labs: Laboratory Results - last 24 hr 01/29/18 01/29/18 01/29/18 09:47 10:09 10:09 WBC 7.1 RBC 5.69 Hgb 16.8 D Hct 50.4 MCV 88.5 MCH 29.5 MCHC 33.3 RDW 13.5 Plt Count 252 MPV 10.1 Neut % (Auto) 64.2 Lymph % (Auto) 26.7 [place] % (Auto) 6.5 Eos % (Auto) 1.4 Baso % (Auto) 1.2 Neut # (Auto) 4.6 Lymph # (Auto) 1.9 [place] # (Auto) 0.5 Eos # (Auto) 0.1 Baso # (Auto) 0.1 pO2 VBG pH VBG pCO2 VBG HCO3 VBG Total CO2 VBG O2 Sat (Calc) VBG Base Excess VBG Potassium Glucose Lactate Crit Value Called To Crit Value Called By Crit Value Read Back Blood Gas Notified Time Sodium 133 Potassium 4.5 Chloride 94 L Carbon Dioxide 10 L* D Anion Gap 33 H BUN 11 Creatinine 0.8 Est GFR ( Amer) > 60 Est GFR (Non-Af Amer) > 60 POC Glucose (mg/dL) > 500 H* Random Glucose 501 H* D Calcium 9.3 Total Bilirubin 1.2 AST 26 ALT 57 Alkaline Phosphatase 144 H D Total Protein 8.4 H Albumin 5.1 H D Globulin 3.2 Albumin/Globulin Ratio 1.6 Venous Blood Potassium 01/29/18 10:14 WBC RBC Hgb Hct MCV MCH MCHC RDW Plt Count MPV Neut % (Auto) Lymph % (Auto) [place] % (Auto) Eos % (Auto) Baso % (Auto) Neut # (Auto) Lymph # (Auto) [place] # (Auto) Eos # (Auto) Baso # (Auto) pO2 23 L VBG pH 7.13 L* VBG pCO2 35 L VBG HCO3 9.9 VBG Total CO2 12.7 L VBG O2 Sat (Calc) 53.5 VBG Base Excess -16.6 L VBG Potassium 5.5 H Glucose 525 H* Lactate 2.8 H Crit Value Called To Dr younger Crit Value Called By Esvin magana dog behaviorist Crit Value Read Back Y Blood Gas Notified Time 1018 Sodium 132.0 Potassium Chloride 90.0 L Carbon Dioxide Anion Gap BUN Creatinine Est GFR ( Amer) Est GFR (Non-Af Amer) POC Glucose (mg/dL) Random Glucose Calcium Total Bilirubin AST ALT Alkaline Phosphatase Total Protein Albumin Globulin Albumin/Globulin Ratio Venous Blood Potassium 5.5 H Assessment & Plan - Assessment and Plan (Free Text) Plan: Neuro: - GCS 15 Cardio: A: Hx of QTc prolongation - 2/2 psych medications - EKG --> QTc 510 - Will continue to monitor - ECHO: LVEF 75% 07/2017) - Stress test: Patient unable tolerate test, 2/2 MSK pain not cardiac in nature Pulm: - No Acute Issues GI: A: IDDM Type 1, Noncompliant - HgA1C 16.4 (11/2017) - Lipid Panel: Trig 66, Chol 120, LDL 53, HDL 46 - [place] Q6H - Anion Gap: 29 on admission - NPO, IVF, Insulin drip - BMP Q4H, f/u ABG - Once off insulin drip, will resume home regimen of Lantus 7 units SC HS, Regular Insulin 4 units AC Meals - Lisinopril 2.5mg PO daily, Crestor 5mg PO daily A: Crohn's Disease - Previous perianal abscess s/p I&D 11/[address] Silver A: Gastritis Psych: A: Schizophrenia,Bipolar disorder, Anxiety disorder, Depression - Psych drugs on hold- due to previous QTc prolongation - Patient says he is on Seroquel and Trazadone prescribed to him by Dr. Barnett - this was stopped in July due to prolonged QTc and he was started on Lexapro and Remeron. - Unsure what patient is taking currently - will reassess once patient is more awake. MSK: A: Onychomycosis DW Dr. Sloan, Olga Andre DO, PGY-1
[2018-01-29] MEDS ORDERED: Sodium Chloride 0.9% 1,000 ML IV SCH ×2 (11:00→12:42)
[2018-01-29 11:05] VITALS: O2SAT 99
--- NOTE | 2018-01-29 11:13 | RAD ---
PROCEDURE: CHEST RADIOGRAPH, 1 VIEW HISTORY: Diabetic COMPARISON: 10/20/2017 FINDINGS: LUNGS: Clear. PLEURA: No pneumothorax or pleural fluid seen. CARDIOVASCULAR: Normal. OSSEOUS STRUCTURES: No significant abnormalities. VISUALIZED UPPER ABDOMEN: Normal. OTHER FINDINGS: None. IMPRESSION: Intimal thickening is present
[2018-01-29 11:25] LABS: CK-MB 0.74 ng/mL (0.0-3.38)
[2018-01-29] MEDS: Potassium Chl 40 mEq in D5-1/2 1,000 ML IV SCH ×2 (15:34→23:15)
[2018-01-29 15:40] LABS: BLOOD UREA NITROGEN 9 mg/dL (9-20); GFR AFRICAN-AMERICAN > 60; GFR NON-AFRICAN AMERICAN > 60
[2018-01-29] MEDS ORDERED: (Novolog) Insulin Aspart, Recombinant 100 u/ml 10 ml vial SC SCH (16:30)
--- NOTE | 2018-01-29 16:44 | CP.PCM.HP ---
History of Present Illness - History of Present Illness History of Present Illness: PT PRESENTED TO ER FOR WEEKNESS SOB ABD DISCOMFORT V HIGH [id number] Present on Admission - Present on Admission Any Indicators Present on Admission: No History of Uncontrolled Diabetes: Yes Review of Systems - Review of Systems Systems not reviewed;Unavailable: Acuity of Condition - Constitutional Constitutional: Fatigue, Weakness - EENT Eyes: As Per HPI Nose/Mouth/Throat: As Per HPI - Cardiovascular Cardiovascular: As Per HPI, Chest Pain with Activity, Dyspnea - Respiratory Respiratory: Dyspnea - Gastrointestinal Gastrointestinal: Abdominal Pain - Reproductive: Male Reproductive:Male: As Per HPI - Integumentary Integumentary: As Per HPI - Neurological Neurological: Headaches - Endocrine Endocrine: Cold Intolorance, Fatigue - Hematologic/Lymphatic Hematologic: As Per HPI Past Patient History - Infectious Disease Hx of Infectious Diseases: None - Past Medical History & Family History Past Medical History?: Yes - Past Social History Smoking Status: Current Some Days Smoker Chewing Tobacco Use: No Cigar Use: No Drugs: Denies - CARDIAC Hx Hypertension: Yes - PULMONARY Hx Respiratory Disorders: No - NEUROLOGICAL Other/Comment: Neuropathy - HEENT Hx HEENT Problems: Yes 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) - RENAL Hx Chronic Kidney Disease: No - ENDOCRINE/METABOLIC Hx Endocrine Disorders: Yes Hx Diabetes Mellitus Type 1: Yes (insulin dependent) - HEMATOLOGICAL/ONCOLOGICAL Hx Human Immunodeficiency Virus (HIV): No - INTEGUMENTARY Hx Dermatological Problems: No - MUSCULOSKELETAL/RHEUMATOLOGICAL Hx Musculoskeletal Disorders: No Hx Falls: No - GASTROINTESTINAL Hx Crohn's Disease: Yes - GENITOURINARY/GYNECOLOGICAL Hx Genitourinary Disorders: No - PSYCHIATRIC Hx Anxiety: Yes Hx Bipolar Disorder: Yes Hx Depression: Yes Hx Schizophrenia: Yes Hx Substance Use: Yes (smokes marijuana occasionally for chronic pain) - SURGICAL HISTORY Hx Surgeries: Yes Other/Comment: wired Jaw - ANESTHESIA Hx Anesthesia: Yes Hx Anesthesia Reactions: No Hx Malignant Hyperthermia: No Meds Allergies/Adverse Reactions: Allergies Allergy/AdvReac Type Severity Reaction Status Date / Time No Known Allergies Allergy Verified 11/26/17 16:08 Physical Exam - Constitutional Appears: Non-toxic, In Acute Distress - Head Exam Head Exam: NORMAL INSPECTION - Eye Exam Eye Exam: Normal appearance Pupil Exam: NORMAL ACCOMODATION - ENT Exam ENT Exam: Mucous Membranes Moist - Neck Exam Neck exam: Positive for: Normal Inspection - Respiratory Exam Respiratory Exam: NORMAL BREATHING PATTERN - Cardiovascular Exam Cardiovascular Exam: REGULAR RHYTHM - GI/Abdominal Exam GI & Abdominal Exam: Normal Bowel Sounds - Rectal Exam Rectal Exam: NORMAL INSPECTION - Exam Exam: NORMAL INSPECTION External exam: NORMAL EXTERNAL EXAM - Extremities Exam Extremities exam: Positive for: normal inspection - Back Exam Back exam: NORMAL INSPECTION - Psychiatric Exam Psychiatric exam: Normal Mood - Skin Skin Exam: Dry Results - Vital Signs Recent Vital Signs: Last Vital Signs Temp 98.1 F 01/29/18 11:29 Pulse 80 01/29/18 11:29 Resp 16 01/29/18 11:29 BP 95/70 L 01/29/18 11:29 Pulse Ox 99 01/29/18 15:13 - Labs Result Diagrams: 01/29/18 10:09 01/29/18 15:12 Labs: Laboratory Results - last 24 hr 01/29/18 01/29/18 01/29/18 09:47 10:09 10:09 WBC 7.1 RBC 5.69 Hgb 16.8 D Hct 50.4 MCV 88.5 MCH 29.5 MCHC 33.3 RDW 13.5 Plt Count 252 MPV 10.1 Neut % (Auto) 64.2 Lymph % (Auto) 26.7 [place] % (Auto) 6.5 Eos % (Auto) 1.4 Baso % (Auto) 1.2 Neut # (Auto) 4.6 Lymph # (Auto) 1.9 [place] # (Auto) 0.5 Eos # (Auto) 0.1 Baso # (Auto) 0.1 pO2 VBG pH VBG pCO2 VBG HCO3 VBG Total CO2 VBG O2 Sat (Calc) VBG Base Excess VBG Potassium Glucose Lactate Crit Value Called To Crit Value Called By Crit Value Read Back Blood Gas Notified Time Sodium 133 Potassium 4.5 Chloride 94 L Carbon Dioxide 10 L* D Anion Gap 33 H BUN 11 Creatinine 0.8 Est GFR ( Amer) > 60 Est GFR (Non-Af Amer) > 60 POC Glucose (mg/dL) > 500 H* Random Glucose 501 H* D Calcium 9.3 Total Bilirubin 1.2 AST 26 ALT 57 Alkaline Phosphatase 144 H D Total Creatine Kinase CK-MB (Mass) Troponin I Total Protein 8.4 H Albumin 5.1 H D Globulin 3.2 Albumin/Globulin Ratio 1.6 Venous Blood Potassium 01/29/18 01/29/18 01/29/18 10:14 11:01 11:37 WBC RBC Hgb Hct MCV MCH MCHC RDW Plt Count MPV Neut % (Auto) Lymph % (Auto) [place] % (Auto) Eos % (Auto) Baso % (Auto) Neut # (Auto) Lymph # (Auto) [place] # (Auto) Eos # (Auto) Baso # (Auto) pO2 23 L VBG pH 7.13 L* VBG pCO2 35 L VBG HCO3 9.9 VBG Total CO2 12.7 L VBG O2 Sat (Calc) 53.5 VBG Base Excess -16.6 L VBG Potassium 5.5 H Glucose 525 H* Lactate 2.8 H Crit Value Called To Dr younger Crit Value Called By Esvin magana pattern designer Crit Value Read Back Y Blood Gas Notified Time 1018 Sodium 132.0 Potassium Chloride 90.0 L Carbon Dioxide Anion Gap BUN Creatinine Est GFR ( Amer) Est GFR (Non-Af Amer) POC Glucose (mg/dL) 318 H Random Glucose Calcium Total Bilirubin AST ALT Alkaline Phosphatase Total Creatine Kinase 44 L CK-MB (Mass) 0.74 Troponin I < 0.0120 Total Protein Albumin Globulin Albumin/Globulin Ratio Venous Blood Potassium 5.5 H 01/29/18 01/29/18 01/29/18 11:57 13:03 14:52 WBC RBC Hgb Hct MCV MCH MCHC RDW Plt Count MPV Neut % (Auto) Lymph % (Auto) [place] % (Auto) Eos % (Auto) Baso % (Auto) Neut # (Auto) Lymph # (Auto) [place] # (Auto) Eos # (Auto) Baso # (Auto) pO2 VBG pH VBG pCO2 VBG HCO3 VBG Total CO2 VBG O2 Sat (Calc) VBG Base Excess VBG Potassium Glucose Lactate Crit Value Called To Crit Value Called By Crit Value Read Back Blood Gas Notified Time Sodium Potassium Chloride Carbon Dioxide Anion Gap BUN Creatinine Est GFR ( Amer) Est GFR (Non-Af Amer) POC Glucose (mg/dL) 320 H 264 H 147 H Random Glucose Calcium Total Bilirubin AST ALT Alkaline Phosphatase Total Creatine Kinase CK-MB (Mass) Troponin I Total Protein Albumin Globulin Albumin/Globulin Ratio Venous Blood Potassium 01/29/18 15:12 WBC RBC Hgb Hct MCV MCH MCHC RDW Plt Count MPV Neut % (Auto) Lymph % (Auto) [place] % (Auto) Eos % (Auto) Baso % (Auto) Neut # (Auto) Lymph # (Auto) [place] # (Auto) Eos # (Auto) Baso # (Auto) pO2 VBG pH VBG pCO2 VBG HCO3 VBG Total CO2 VBG O2 Sat (Calc) VBG Base Excess VBG Potassium Glucose Lactate Crit Value Called To Crit Value Called By Crit Value Read Back Blood Gas Notified Time Sodium 137 Potassium 3.2 L Chloride 105 Carbon Dioxide 19 L Anion Gap 16 BUN 9 Creatinine 0.5 L Est GFR ( Amer) > 60 Est GFR (Non-Af Amer) > 60 POC Glucose (mg/dL) Random Glucose 136 H Calcium 8.0 L Total Bilirubin AST ALT Alkaline Phosphatase Total Creatine Kinase CK-MB (Mass) Troponin I Total Protein Albumin Globulin Albumin/Globulin Ratio Venous Blood Potassium Assessment & Plan - Assessment and Plan (Free Text) Assessment: AC DKA BIPOLAR DISORDER Plan: ORDERS - Date & Time Date: 01/29/18 Time: 16:47
[2018-01-29] MEDS ORDERED: Dextrose 50% SYRINGE Inj (50 ml) IV PRN (17:13)
[2018-01-29] MEDS ORDERED: Glucagon Recombinant 1 mg Inj IM PRN (17:13)
[2018-01-29 20:43] LABS: BLOOD UREA NITROGEN 8 mg/dL (9-20); CALCIUM 7.8 mg/dl (8.6-10.4); GFR AFRICAN-AMERICAN > 60; GFR NON-AFRICAN AMERICAN > 60
[2018-01-29] MEDS ORDERED: Insulin Human Regular 100 UNIT in Sodium Chloride 0.9% 99 ML IV SCH (21:45)
[2018-01-29] MEDS ORDERED: (Lantus) Insulin Glargine, Recombinant SC SCH ×2 (22:00)
[2018-01-29] MEDS ORDERED: Rosuvastatin Calcium 2.5 mg Tab PO SCH (22:00)
[2018-01-29 22:34] LABS: URINE BILIRUBIN NEGATIVE (NEGATIVE); URINE BLOOD NEGATIVE (NEGATIVE); URINE CLARITY Clear (Clear); URINE COLOR Colorless (YELLOW); URINE GLUCOSE (UA) 3+ mg/dL (Normal); URINE LEUKOCYTE ESTERASE NEG Leu/uL (Negative); URINE PROTEIN NEGATIVE (NEGATIVE); URINE UROBILINOGEN NORMAL mg/dL (0.2-1.0)
[2018-01-29 22:52] LABS: BARBITURATES, UR NEGATIVE (NEGATIVE); BENZODIAZEPINES, UR NEGATIVE (NEGATIVE); OPIATES, UR NEGATIVE (NEGATIVE); PHENCYCLIDINE, UR NEGATIVE (NEGATIVE)
[2018-01-30 01:23] VITALS: PULSE 88
[2018-01-30 06:10] VITALS: RESP 15
[2018-01-30 06:30] LABS: BASO % 0.5 % (0.0-2.0); EOS # 0.1 K/uL (0.0-0.7); EOS % 1.4 % (0.0-4.0); HEMOGLOBIN 13.8 g/dL (12.0-18.0); LYMPH # 1.8 K/uL (1.0-4.3); MEAN CELL VOLUME 85.8 fL (80.0-94.0); MEAN CORPUSCULAR HGB CONC 33.8 g/dL (33.0-37.0); MEAN PLATELET VOLUME 9.7 fL (7.2-11.7); MONO # 0.6 K/uL (0.0-0.8); MONO % 9.4 % (0.0-10.0); NEUT # 3.7 K/uL (1.8-7.0); NEUT % 59.7 % (50.0-75.0); NRBC % 0.1 % (0.0-2.0); RBC 4.76 Mil/uL (4.40-5.90); RED CELL DISTRIBUTION WIDTH 12.9 % (11.5-14.5); WHITE BLOOD COUNT 6.2 K/uL (4.8-10.8)
[2018-01-30 06:42] LABS: ALB/GLOB RATIO 1.3 (1.0-2.1); ALBUMIN 3.6 g/dL (3.5-5.0); ALT/SGPT 42 U/L (21-72); AST/SGOT 24 U/L (17-59); BLOOD UREA NITROGEN 5 mg/dL (9-20); GFR AFRICAN-AMERICAN > 60; GFR NON-AFRICAN AMERICAN > 60
[2018-01-30] MEDS: Potassium Chl 40 mEq in D5-1/2 1,000 ML IV SCH (07:29)
[2018-01-30] MEDS ORDERED: Pantoprazole 40 mg EC Tab PO SCH (10:00)
[2018-01-30] MEDS ORDERED: Nystatin 100,000 Units/gm Cream(15 gm) TOP SCH (10:00)
--- NOTE | 2018-01-30 10:12 | CP.CCUPN ---
<Olga Andre - Last Filed: 01/30/18 10:09> CCU Subjective - Physician Review Subjective (Free Text): Patient seen and examined at bedside. Patient reports he has inguinal rash. Denied any other complaints. CCU Objective - Vital Signs / Intake & Output Intake and Output (Last 8hrs): Intake & Output 01/29/18 01/30/18 01/30/18 22:59 06:59 14:59 Intake Total 1611 1105 225 Output Total 750 1750 Balance 861 -645 225 Weight 108 lb 8 oz Intake: IV 29 Intake, IV Amount 1161 626 225 RFA #20 100 Right Forearm 11 26 y line to right arm 1050 600 225 Oral 450 450 Output: Urine 750 1150 Urine, Voided 750 1150 Stool 600 Other: # Voids Urine, Voided 0 # Bowel Movements 2 4 0 - Physical Exam Other physical findings (Free Text): - Constitutional Appears: Toxic - Head Exam Head Exam: NORMAL INSPECTION, NORMOCEPHALIC - Eye Exam Eye Exam: EOMI, Normal appearance, PERRL - ENT Exam ENT Exam: Mucous Membranes Dry - Respiratory Exam Respiratory Exam: NORMAL BREATHING PATTERN - Cardiovascular Exam Cardiovascular Exam: Tachycardia - GI/Abdominal Exam GI & Abdominal Exam: Normal Bowel Sounds, Soft, Tenderness. absent: Distended - Extremities Exam Extremities exam: Positive for: normal inspection, pedal pulses present. Negative for: pedal edema, tenderness - Neurological Exam Neurological exam: Alert, CN II-XII Intact, Oriented x3 - Psychiatric Exam Psychiatric exam: Normal Affect, Normal Mood - Skin Skin Exam: Dry, Intact, Normal Color, Warm 01/30/18 10:10 - Medications Active Medications: Active Medications Generic Name Dose Route Start Last Admin Trade Name Treasure PRN Reason Stop Dose Admin Dextrose 0 ml 01/29/18 17:13 Dextrose 50% Inj IV STAT PRN Hypoglycemia Protocol Protocol Dextrose 0 gm 01/29/18 17:13 Glutose 15 PO ONCE PRN Hypoglycemia Protocol Protocol Glucagon 0 mg 01/29/18 17:13 Glucagen Diagnostic Kit IM STAT PRN Hypoglycemia Protocol Protocol Potassium Chloride/Dextrose/Sod Cl 1,000 mls @ 150 mls/hr 01/29/18 15:45 07:29 Potassium Chl 40 Meq In D5-1/2ns IV Not Given .Q6H40M JOHANA Dextrose 1,000 mls @ 0 mls/hr 01/29/18 17:13 Dextrose 5% In Water 1000 Ml IV .Q0M PRN Hypoglycemia Protocol Protocol Per Protocol Insulin Aspart 4 unit 01/30/18 11:30 Novolog SC ACHS JOHANA Insulin Glargine 10 unit 01/29/18 22:00 01/29/18 22:00 Lantus SC 10 units HS JOHANA Administration Lisinopril 2.5 mg 01/30/18 10:00 01/30/18 09:30 Zestril PO 2.5 mg DAILY JOHANA Administration Metoclopramide HCl 10 mg 01/29/18 11:29 01/29/18 22:05 Reglan IVP 10 mg Q6H PRN Administration Nausea/Vomiting Mirtazapine 30 mg 01/29/18 22:00 01/29/18 22:00 Remeron PO 30 mg HS JOHANA Administration Nystatin 1 ea 01/30/18 10:00 Mycostatin Cream TOP TID JOHANA Pantoprazole Sodium 40 mg 01/30/18 10:00 01/30/18 09:30 Protonix Ec Tab PO 40 mg DAILY JOHANA Administration Rosuvastatin Calcium 2.5 mg 01/29/18 22:00 01/29/18 22:00 Crestor PO 2.5 mg HS JOHANA Administration - Patient Studies Lab Studies: Lab Studies 01/30/18 01/30/18 01/30/18 Range/Units 07:34 06:24 06:14 WBC 6.2 (4.8-10.8) K/uL RBC 4.76 (4.40-5.90) Mil/uL Hgb 13.8 D (12.0-18.0) g/dL Hct 40.8 (35.0-51.0) % MCV 85.8 D (80.0-94.0) fL MCH 29.0 (27.0-31.0) pg MCHC 33.8 (33.0-37.0) g/dL RDW 12.9 (11.5-14.5) % Plt Count 208 (130-400) K/uL MPV 9.7 (7.2-11.7) fL Neut % (Auto) 59.7 (50.0-75.0) % Lymph % (Auto) 29.0 (20.0-40.0) % [place] % (Auto) 9.4 (0.0-10.0) % Eos % (Auto) 1.4 (0.0-4.0) % Baso % (Auto) 0.5 (0.0-2.0) % Neut # (Auto) 3.7 (1.8-7.0) K/uL Lymph # (Auto) 1.8 (1.0-4.3) K/uL [place] # (Auto) 0.6 (0.0-0.8) K/uL Eos # (Auto) 0.1 (0.0-0.7) K/uL Baso # (Auto) 0.0 (0.0-0.2) K/uL pO2 (30-55) mm/Hg VBG pH (7.32-7.43) VBG pCO2 (40-60) mmHg VBG HCO3 mmol/L VBG Total CO2 (22-28) mmol/L VBG O2 Sat (Calc) (40-65) % VBG Base Excess (0.0-2.0) mmol/L VBG Potassium (3.6-5.2) mmol/L Glucose (75-110) mg/dl Lactate (0.7-2.1) mmol/L Crit Value Called To Crit Value Called By Crit Value Read Back Blood Gas Notified Time Sodium 142 (132-148) mmol/L Potassium 3.4 L (3.6-5.2) mmol/L Chloride 108 H (98-107) mmol/L Carbon Dioxide 24 (22-30) mmol/L Anion Gap 14 (10-20) BUN 5 L (9-20) mg/dL Creatinine 0.6 L (0.8-1.5) mg/dL Est GFR ( Amer) > 60 Est GFR (Non-Af Amer) > 60 POC Glucose (mg/dL) 114 H (65-110) mg/dL Random Glucose 128 H (75-110) mg/dL Calcium 8.0 L (8.6-10.4) mg/dl Phosphorus 2.7 (2.5-4.5) mg/dL Magnesium 2.1 (1.6-2.3) mg/dL Total Bilirubin 0.6 (0.2-1.3) mg/dL AST 24 (17-59) U/L ALT 42 (21-72) U/L Alkaline Phosphatase 78 (38-126) U/L Total Creatine Kinase (55-170) U/L CK-MB (Mass) (0.0-3.38) ng/mL Troponin I (0.00-0.120) ng/mL Total Protein 6.2 L (6.3-8.3) g/dL Albumin 3.6 (3.5-5.0) g/dL Globulin 2.7 (2.2-3.9) gm/dL Albumin/Globulin Ratio 1.3 (1.0-2.1) Venous Blood Potassium (3.6-5.2) mmol/L Urine Color (YELLOW) Urine Clarity (Clear) Urine pH (5.0-8.0) Ur Specific [place] (1.003-1.030) Urine Protein (NEGATIVE) mg/dL Urine Glucose (UA) (Normal) mg/dL Urine Ketones (NEGATIVE) mg/dL Urine Blood (NEGATIVE) Urine Nitrate (NEGATIVE) Urine Bilirubin (NEGATIVE) Urine Urobilinogen (0.2-1.0) mg/dL Ur Leukocyte Esterase (Negative) Shelly/uL Urine WBC (Auto) (0-5) /hpf Urine RBC (Auto) (0-3) /hpf Urine Opiates Screen (NEGATIVE) Urine Methadone Screen (NEGATIVE) Ur Barbiturates Screen (NEGATIVE) Ur Phencyclidine Scrn (NEGATIVE) Ur Amphetamines Screen (NEGATIVE) U Benzodiazepines Scrn (NEGATIVE) U Oth Cocaine Metabols (NEGATIVE) U Cannabinoids Screen (NEGATIVE) 01/30/18 01/30/18 01/30/18 Range/Units 06:04 05:04 03:56 WBC (4.8-10.8) K/uL RBC (4.40-5.90) Mil/uL Hgb (12.0-18.0) g/dL Hct (35.0-51.0) % MCV (80.0-94.0) fL MCH (27.0-31.0) pg MCHC (33.0-37.0) g/dL RDW (11.5-14.5) % Plt Count (130-400) K/uL MPV (7.2-11.7) fL Neut % (Auto) (50.0-75.0) % Lymph % (Auto) (20.0-40.0) % [place] % (Auto) (0.0-10.0) % Eos % (Auto) (0.0-4.0) % Baso % (Auto) (0.0-2.0) % Neut # (Auto) (1.8-7.0) K/uL Lymph # (Auto) (1.0-4.3) K/uL [place] # (Auto) (0.0-0.8) K/uL Eos # (Auto) (0.0-0.7) K/uL Baso # (Auto) (0.0-0.2) K/uL pO2 (30-55) mm/Hg VBG pH (7.32-7.43) VBG pCO2 (40-60) mmHg VBG HCO3 mmol/L VBG Total CO2 (22-28) mmol/L VBG O2 Sat (Calc) (40-65) % VBG Base Excess (0.0-2.0) mmol/L VBG Potassium (3.6-5.2) mmol/L Glucose (75-110) mg/dl Lactate (0.7-2.1) mmol/L Crit Value Called To Crit Value Called By Crit Value Read Back Blood Gas Notified Time Sodium (132-148) mmol/L Potassium (3.6-5.2) mmol/L Chloride (98-107) mmol/L Carbon Dioxide (22-30) mmol/L Anion Gap (10-20) BUN (9-20) mg/dL Creatinine (0.8-1.5) mg/dL Est GFR ( Amer) Est GFR (Non-Af Amer) POC Glucose (mg/dL) 101 136 H 158 H (65-110) mg/dL Random Glucose (75-110) mg/dL Calcium (8.6-10.4) mg/dl Phosphorus (2.5-4.5) mg/dL Magnesium (1.6-2.3) mg/dL Total Bilirubin (0.2-1.3) mg/dL AST (17-59) U/L ALT (21-72) U/L Alkaline Phosphatase (38-126) U/L Total Creatine Kinase (55-170) U/L CK-MB (Mass) (0.0-3.38) ng/mL Troponin I (0.00-0.120) ng/mL Total Protein (6.3-8.3) g/dL Albumin (3.5-5.0) g/dL Globulin (2.2-3.9) gm/dL Albumin/Globulin Ratio (1.0-2.1) Venous Blood Potassium (3.6-5.2) mmol/L Urine Color (YELLOW) Urine Clarity (Clear) Urine pH (5.0-8.0) Ur Specific [place] (1.003-1.030) Urine Protein (NEGATIVE) mg/dL Urine Glucose (UA) (Normal) mg/dL Urine Ketones (NEGATIVE) mg/dL Urine Blood (NEGATIVE) Urine Nitrate (NEGATIVE) Urine Bilirubin (NEGATIVE) Urine Urobilinogen (0.2-1.0) mg/dL Ur Leukocyte Esterase (Negative) Shelly/uL Urine WBC (Auto) (0-5) /hpf Urine RBC (Auto) (0-3) /hpf Urine Opiates Screen (NEGATIVE) Urine Methadone Screen (NEGATIVE) Ur Barbiturates Screen (NEGATIVE) Ur Phencyclidine Scrn (NEGATIVE) Ur Amphetamines Screen (NEGATIVE) U Benzodiazepines Scrn (NEGATIVE) U Oth Cocaine Metabols (NEGATIVE) U Cannabinoids Screen (NEGATIVE) 01/30/18 01/30/18 01/30/18 Range/Units 03:16 01:58 01:02 WBC (4.8-10.8) K/uL RBC (4.40-5.90) Mil/uL Hgb (12.0-18.0) g/dL Hct (35.0-51.0) % MCV (80.0-94.0) fL MCH (27.0-31.0) pg MCHC (33.0-37.0) g/dL RDW (11.5-14.5) % Plt Count (130-400) K/uL MPV (7.2-11.7) fL Neut % (Auto) (50.0-75.0) % Lymph % (Auto) (20.0-40.0) % [place] % (Auto) (0.0-10.0) % Eos % (Auto) (0.0-4.0) % Baso % (Auto) (0.0-2.0) % Neut # (Auto) (1.8-7.0) K/uL Lymph # (Auto) (1.0-4.3) K/uL [place] # (Auto) (0.0-0.8) K/uL Eos # (Auto) (0.0-0.7) K/uL Baso # (Auto) (0.0-0.2) K/uL pO2 (30-55) mm/Hg VBG pH (7.32-7.43) VBG pCO2 (40-60) mmHg VBG HCO3 mmol/L VBG Total CO2 (22-28) mmol/L VBG O2 Sat (Calc) (40-65) % VBG Base Excess (0.0-2.0) mmol/L VBG Potassium (3.6-5.2) mmol/L Glucose (75-110) mg/dl Lactate (0.7-2.1) mmol/L Crit Value Called To Crit Value Called By Crit Value Read Back Blood Gas Notified Time Sodium (132-148) mmol/L Potassium (3.6-5.2) mmol/L Chloride (98-107) mmol/L Carbon Dioxide (22-30) mmol/L Anion Gap (10-20) BUN (9-20) mg/dL Creatinine (0.8-1.5) mg/dL Est GFR ( Amer) Est GFR (Non-Af Amer) POC Glucose (mg/dL) 212 H 262 H 257 H (65-110) mg/dL Random Glucose (75-110) mg/dL Calcium (8.6-10.4) mg/dl Phosphorus (2.5-4.5) mg/dL Magnesium (1.6-2.3) mg/dL Total Bilirubin (0.2-1.3) mg/dL AST (17-59) U/L ALT (21-72) U/L Alkaline Phosphatase (38-126) U/L Total Creatine Kinase (55-170) U/L CK-MB (Mass) (0.0-3.38) ng/mL Troponin I (0.00-0.120) ng/mL Total Protein (6.3-8.3) g/dL Albumin (3.5-5.0) g/dL Globulin (2.2-3.9) gm/dL Albumin/Globulin Ratio (1.0-2.1) Venous Blood Potassium (3.6-5.2) mmol/L Urine Color (YELLOW) Urine Clarity (Clear) Urine pH (5.0-8.0) Ur Specific [place] (1.003-1.030) Urine Protein (NEGATIVE) mg/dL Urine Glucose (UA) (Normal) mg/dL Urine Ketones (NEGATIVE) mg/dL Urine Blood (NEGATIVE) Urine Nitrate (NEGATIVE) Urine Bilirubin (NEGATIVE) Urine Urobilinogen (0.2-1.0) mg/dL Ur Leukocyte Esterase (Negative) Shelly/uL Urine WBC (Auto) (0-5) /hpf Urine RBC (Auto) (0-3) /hpf Urine Opiates Screen (NEGATIVE) Urine Methadone Screen (NEGATIVE) Ur Barbiturates Screen (NEGATIVE) Ur Phencyclidine Scrn (NEGATIVE) Ur Amphetamines Screen (NEGATIVE) U Benzodiazepines Scrn (NEGATIVE) U Oth Cocaine Metabols (NEGATIVE) U Cannabinoids Screen (NEGATIVE) 01/30/18 01/29/18 01/29/18 Range/Units 00:08 22:54 22:29 WBC (4.8-10.8) K/uL RBC (4.40-5.90) Mil/uL Hgb (12.0-18.0) g/dL Hct (35.0-51.0) % MCV (80.0-94.0) fL MCH (27.0-31.0) pg MCHC (33.0-37.0) g/dL RDW (11.5-14.5) % Plt Count (130-400) K/uL MPV (7.2-11.7) fL Neut % (Auto) (50.0-75.0) % Lymph % (Auto) (20.0-40.0) % [place] % (Auto) (0.0-10.0) % Eos % (Auto) (0.0-4.0) % Baso % (Auto) (0.0-2.0) % Neut # (Auto) (1.8-7.0) K/uL Lymph # (Auto) (1.0-4.3) K/uL [place] # (Auto) (0.0-0.8) K/uL Eos # (Auto) (0.0-0.7) K/uL Baso # (Auto) (0.0-0.2) K/uL pO2 (30-55) mm/Hg VBG pH (7.32-7.43) VBG pCO2 (40-60) mmHg VBG HCO3 mmol/L VBG Total CO2 (22-28) mmol/L VBG O2 Sat (Calc) (40-65) % VBG Base Excess (0.0-2.0) mmol/L VBG Potassium (3.6-5.2) mmol/L Glucose (75-110) mg/dl Lactate (0.7-2.1) mmol/L Crit Value Called To Crit Value Called By Crit Value Read Back Blood Gas Notified Time Sodium (132-148) mmol/L Potassium (3.6-5.2) mmol/L Chloride (98-107) mmol/L Carbon Dioxide (22-30) mmol/L Anion Gap (10-20) BUN (9-20) mg/dL Creatinine (0.8-1.5) mg/dL Est GFR ( Amer) Est GFR (Non-Af Amer) POC Glucose (mg/dL) 336 H 488 H* (65-110) mg/dL Random Glucose (75-110) mg/dL Calcium (8.6-10.4) mg/dl Phosphorus (2.5-4.5) mg/dL Magnesium (1.6-2.3) mg/dL Total Bilirubin (0.2-1.3) mg/dL AST (17-59) U/L ALT (21-72) U/L Alkaline Phosphatase (38-126) U/L Total Creatine Kinase (55-170) U/L CK-MB (Mass) (0.0-3.38) ng/mL Troponin I (0.00-0.120) ng/mL Total Protein (6.3-8.3) g/dL Albumin (3.5-5.0) g/dL Globulin (2.2-3.9) gm/dL Albumin/Globulin Ratio (1.0-2.1) Venous Blood Potassium (3.6-5.2) mmol/L Urine Color (YELLOW) Urine Clarity (Clear) Urine pH (5.0-8.0) Ur Specific [place] (1.003-1.030) Urine Protein (NEGATIVE) mg/dL Urine Glucose (UA) (Normal) mg/dL Urine Ketones (NEGATIVE) mg/dL Urine Blood (NEGATIVE) Urine Nitrate (NEGATIVE) Urine Bilirubin (NEGATIVE) Urine Urobilinogen (0.2-1.0) mg/dL Ur Leukocyte Esterase (Negative) Shelly/uL Urine WBC (Auto) (0-5) /hpf Urine RBC (Auto) (0-3) /hpf Urine Opiates Screen Negative (NEGATIVE) Urine Methadone Screen Negative (NEGATIVE) Ur Barbiturates Screen Negative (NEGATIVE) Ur Phencyclidine Scrn Negative (NEGATIVE) Ur Amphetamines Screen Negative (NEGATIVE) U Benzodiazepines Scrn Negative (NEGATIVE) U Oth Cocaine Metabols Negative (NEGATIVE) U Cannabinoids Screen Positive H (NEGATIVE) 01/29/18 01/29/18 01/29/18 Range/Units 22:29 22:03 21:26 WBC (4.8-10.8) K/uL RBC (4.40-5.90) Mil/uL Hgb (12.0-18.0) g/dL Hct (35.0-51.0) % MCV (80.0-94.0) fL MCH (27.0-31.0) pg MCHC (33.0-37.0) g/dL RDW (11.5-14.5) % Plt Count (130-400) K/uL MPV (7.2-11.7) fL Neut % (Auto) (50.0-75.0) % Lymph % (Auto) (20.0-40.0) % [place] % (Auto) (0.0-10.0) % Eos % (Auto) (0.0-4.0) % Baso % (Auto) (0.0-2.0) % Neut # (Auto) (1.8-7.0) K/uL Lymph # (Auto) (1.0-4.3) K/uL [place] # (Auto) (0.0-0.8) K/uL Eos # (Auto) (0.0-0.7) K/uL Baso # (Auto) (0.0-0.2) K/uL pO2 (30-55) mm/Hg VBG pH (7.32-7.43) VBG pCO2 (40-60) mmHg VBG HCO3 mmol/L VBG Total CO2 (22-28) mmol/L VBG O2 Sat (Calc) (40-65) % VBG Base Excess (0.0-2.0) mmol/L VBG Potassium (3.6-5.2) mmol/L Glucose (75-110) mg/dl Lactate (0.7-2.1) mmol/L Crit Value Called To Crit Value Called By Crit Value Read Back Blood Gas Notified Time Sodium (132-148) mmol/L Potassium (3.6-5.2) mmol/L Chloride (98-107) mmol/L Carbon Dioxide (22-30) mmol/L Anion Gap (10-20) BUN (9-20) mg/dL Creatinine (0.8-1.5) mg/dL Est GFR ( Amer) Est GFR (Non-Af Amer) POC Glucose (mg/dL) > 500 H* 498 H* (65-110) mg/dL Random Glucose (75-110) mg/dL Calcium (8.6-10.4) mg/dl Phosphorus (2.5-4.5) mg/dL Magnesium (1.6-2.3) mg/dL Total Bilirubin (0.2-1.3) mg/dL AST (17-59) U/L ALT (21-72) U/L Alkaline Phosphatase (38-126) U/L Total Creatine Kinase (55-170) U/L CK-MB (Mass) (0.0-3.38) ng/mL Troponin I (0.00-0.120) ng/mL Total Protein (6.3-8.3) g/dL Albumin (3.5-5.0) g/dL Globulin (2.2-3.9) gm/dL Albumin/Globulin Ratio (1.0-2.1) Venous Blood Potassium (3.6-5.2) mmol/L Urine Color Colorless (YELLOW) Urine Clarity Clear (Clear) Urine pH 6.0 (5.0-8.0) Ur Specific [place] 1.020 (1.003-1.030) Urine Protein Negative (NEGATIVE) mg/dL Urine Glucose (UA) 3+ H (Normal) mg/dL Urine Ketones 1+ H (NEGATIVE) mg/dL Urine Blood Negative (NEGATIVE) Urine Nitrate Negative (NEGATIVE) Urine Bilirubin Negative (NEGATIVE) Urine Urobilinogen Normal (0.2-1.0) mg/dL Ur Leukocyte Esterase Neg (Negative) Shelly/uL Urine WBC (Auto) < 1 (0-5) /hpf Urine RBC (Auto) < 1 (0-3) /hpf Urine Opiates Screen (NEGATIVE) Urine Methadone Screen (NEGATIVE) Ur Barbiturates Screen (NEGATIVE) Ur Phencyclidine Scrn (NEGATIVE) Ur Amphetamines Screen (NEGATIVE) U Benzodiazepines Scrn (NEGATIVE) U Oth Cocaine Metabols (NEGATIVE) U Cannabinoids Screen (NEGATIVE) 01/29/18 01/29/18 01/29/18 Range/Units 18:58 17:58 17:05 WBC (4.8-10.8) K/uL RBC (4.40-5.90) Mil/uL Hgb (12.0-18.0) g/dL Hct (35.0-51.0) % MCV (80.0-94.0) fL MCH (27.0-31.0) pg MCHC (33.0-37.0) g/dL RDW (11.5-14.5) % Plt Count (130-400) K/uL MPV (7.2-11.7) fL Neut % (Auto) (50.0-75.0) % Lymph % (Auto) (20.0-40.0) % [place] % (Auto) (0.0-10.0) % Eos % (Auto) (0.0-4.0) % Baso % (Auto) (0.0-2.0) % Neut # (Auto) (1.8-7.0) K/uL Lymph # (Auto) (1.0-4.3) K/uL [place] # (Auto) (0.0-0.8) K/uL Eos # (Auto) (0.0-0.7) K/uL Baso # (Auto) (0.0-0.2) K/uL pO2 (30-55) mm/Hg VBG pH (7.32-7.43) VBG pCO2 (40-60) mmHg VBG HCO3 mmol/L VBG Total CO2 (22-28) mmol/L VBG O2 Sat (Calc) (40-65) % VBG Base Excess (0.0-2.0) mmol/L VBG Potassium (3.6-5.2) mmol/L Glucose (75-110) mg/dl Lactate (0.7-2.1) mmol/L Crit Value Called To Crit Value Called By Crit Value Read Back Blood Gas Notified Time Sodium 133 (132-148) mmol/L Potassium 4.1 (3.6-5.2) mmol/L Chloride 103 (98-107) mmol/L Carbon Dioxide 19 L (22-30) mmol/L Anion Gap 15 (10-20) BUN 8 L (9-20) mg/dL Creatinine 0.7 L (0.8-1.5) mg/dL Est GFR ( Amer) > 60 Est GFR (Non-Af Amer) > 60 POC Glucose (mg/dL) 169 H 65 (65-110) mg/dL Random Glucose 324 H (75-110) mg/dL Calcium 7.8 L (8.6-10.4) mg/dl Phosphorus 2.8 (2.5-4.5) mg/dL Magnesium 1.5 L (1.6-2.3) mg/dL Total Bilirubin (0.2-1.3) mg/dL AST (17-59) U/L ALT (21-72) U/L Alkaline Phosphatase (38-126) U/L Total Creatine Kinase (55-170) U/L CK-MB (Mass) (0.0-3.38) ng/mL Troponin I (0.00-0.120) ng/mL Total Protein (6.3-8.3) g/dL Albumin (3.5-5.0) g/dL Globulin (2.2-3.9) gm/dL Albumin/Globulin Ratio (1.0-2.1) Venous Blood Potassium (3.6-5.2) mmol/L Urine Color (YELLOW) Urine Clarity (Clear) Urine pH (5.0-8.0) Ur Specific [place] (1.003-1.030) Urine Protein (NEGATIVE) mg/dL Urine Glucose (UA) (Normal) mg/dL Urine Ketones (NEGATIVE) mg/dL Urine Blood (NEGATIVE) Urine Nitrate (NEGATIVE) Urine Bilirubin (NEGATIVE) Urine Urobilinogen (0.2-1.0) mg/dL Ur Leukocyte Esterase (Negative) Shelly/uL Urine WBC (Auto) (0-5) /hpf Urine RBC (Auto) (0-3) /hpf Urine Opiates Screen (NEGATIVE) Urine Methadone Screen (NEGATIVE) Ur Barbiturates Screen (NEGATIVE) Ur Phencyclidine Scrn (NEGATIVE) Ur Amphetamines Screen (NEGATIVE) U Benzodiazepines Scrn (NEGATIVE) U Oth Cocaine Metabols (NEGATIVE) U Cannabinoids Screen (NEGATIVE) 01/29/18 01/29/18 01/29/18 Range/Units 17:03 16:05 15:12 WBC (4.8-10.8) K/uL RBC (4.40-5.90) Mil/uL Hgb (12.0-18.0) g/dL Hct (35.0-51.0) % MCV (80.0-94.0) fL MCH (27.0-31.0) pg MCHC (33.0-37.0) g/dL RDW (11.5-14.5) % Plt Count (130-400) K/uL MPV (7.2-11.7) fL Neut % (Auto) (50.0-75.0) % Lymph % (Auto) (20.0-40.0) % [place] % (Auto) (0.0-10.0) % Eos % (Auto) (0.0-4.0) % Baso % (Auto) (0.0-2.0) % Neut # (Auto) (1.8-7.0) K/uL Lymph # (Auto) (1.0-4.3) K/uL [place] # (Auto) (0.0-0.8) K/uL Eos # (Auto) (0.0-0.7) K/uL Baso # (Auto) (0.0-0.2) K/uL pO2 (30-55) mm/Hg VBG pH (7.32-7.43) VBG pCO2 (40-60) mmHg VBG HCO3 mmol/L VBG Total CO2 (22-28) mmol/L VBG O2 Sat (Calc) (40-65) % VBG Base Excess (0.0-2.0) mmol/L VBG Potassium (3.6-5.2) mmol/L Glucose (75-110) mg/dl Lactate (0.7-2.1) mmol/L Crit Value Called To Crit Value Called By Crit Value Read Back Blood Gas Notified Time Sodium 137 (132-148) mmol/L Potassium 3.2 L (3.6-5.2) mmol/L Chloride 105 (98-107) mmol/L Carbon Dioxide 19 L (22-30) mmol/L Anion Gap 16 (10-20) BUN 9 (9-20) mg/dL Creatinine 0.5 L (0.8-1.5) mg/dL Est GFR ( Amer) > 60 Est GFR (Non-Af Amer) > 60 POC Glucose (mg/dL) 65 82 (65-110) mg/dL Random Glucose 136 H (75-110) mg/dL Calcium 8.0 L (8.6-10.4) mg/dl Phosphorus (2.5-4.5) mg/dL Magnesium (1.6-2.3) mg/dL Total Bilirubin (0.2-1.3) mg/dL AST (17-59) U/L ALT (21-72) U/L Alkaline Phosphatase (38-126) U/L Total Creatine Kinase (55-170) U/L CK-MB (Mass) (0.0-3.38) ng/mL Troponin I (0.00-0.120) ng/mL Total Protein (6.3-8.3) g/dL Albumin (3.5-5.0) g/dL Globulin (2.2-3.9) gm/dL Albumin/Globulin Ratio (1.0-2.1) Venous Blood Potassium (3.6-5.2) mmol/L Urine Color (YELLOW) Urine Clarity (Clear) Urine pH (5.0-8.0) Ur Specific [place] (1.003-1.030) Urine Protein (NEGATIVE) mg/dL Urine Glucose (UA) (Normal) mg/dL Urine Ketones (NEGATIVE) mg/dL Urine Blood (NEGATIVE) Urine Nitrate (NEGATIVE) Urine Bilirubin (NEGATIVE) Urine Urobilinogen (0.2-1.0) mg/dL Ur Leukocyte Esterase (Negative) Shelly/uL Urine WBC (Auto) (0-5) /hpf Urine RBC (Auto) (0-3) /hpf Urine Opiates Screen (NEGATIVE) Urine Methadone Screen (NEGATIVE) Ur Barbiturates Screen (NEGATIVE) Ur Phencyclidine Scrn (NEGATIVE) Ur Amphetamines Screen (NEGATIVE) U Benzodiazepines Scrn (NEGATIVE) U Oth Cocaine Metabols (NEGATIVE) U Cannabinoids Screen (NEGATIVE) 01/29/18 01/29/18 01/29/18 Range/Units 14:52 13:03 11:57 WBC (4.8-10.8) K/uL RBC (4.40-5.90) Mil/uL Hgb (12.0-18.0) g/dL Hct (35.0-51.0) % MCV (80.0-94.0) fL MCH (27.0-31.0) pg MCHC (33.0-37.0) g/dL RDW (11.5-14.5) % Plt Count (130-400) K/uL MPV (7.2-11.7) fL Neut % (Auto) (50.0-75.0) % Lymph % (Auto) (20.0-40.0) % [place] % (Auto) (0.0-10.0) % Eos % (Auto) (0.0-4.0) % Baso % (Auto) (0.0-2.0) % Neut # (Auto) (1.8-7.0) K/uL Lymph # (Auto) (1.0-4.3) K/uL [place] # (Auto) (0.0-0.8) K/uL Eos # (Auto) (0.0-0.7) K/uL Baso # (Auto) (0.0-0.2) K/uL pO2 (30-55) mm/Hg VBG pH (7.32-7.43) VBG pCO2 (40-60) mmHg VBG HCO3 mmol/L VBG Total CO2 (22-28) mmol/L VBG O2 Sat (Calc) (40-65) % VBG Base Excess (0.0-2.0) mmol/L VBG Potassium (3.6-5.2) mmol/L Glucose (75-110) mg/dl Lactate (0.7-2.1) mmol/L Crit Value Called To Crit Value Called By Crit Value Read Back Blood Gas Notified Time Sodium (132-148) mmol/L Potassium (3.6-5.2) mmol/L Chloride (98-107) mmol/L Carbon Dioxide (22-30) mmol/L Anion Gap (10-20) BUN (9-20) mg/dL Creatinine (0.8-1.5) mg/dL Est GFR ( Amer) Est GFR (Non-Af Amer) POC Glucose (mg/dL) 147 H 264 H 320 H (65-110) mg/dL Random Glucose (75-110) mg/dL Calcium (8.6-10.4) mg/dl Phosphorus (2.5-4.5) mg/dL Magnesium (1.6-2.3) mg/dL Total Bilirubin (0.2-1.3) mg/dL AST (17-59) U/L ALT (21-72) U/L Alkaline Phosphatase (38-126) U/L Total Creatine Kinase (55-170) U/L CK-MB (Mass) (0.0-3.38) ng/mL Troponin I (0.00-0.120) ng/mL Total Protein (6.3-8.3) g/dL Albumin (3.5-5.0) g/dL Globulin (2.2-3.9) gm/dL Albumin/Globulin Ratio (1.0-2.1) Venous Blood Potassium (3.6-5.2) mmol/L Urine Color (YELLOW) Urine Clarity (Clear) Urine pH (5.0-8.0) Ur Specific [place] (1.003-1.030) Urine Protein (NEGATIVE) mg/dL Urine Glucose (UA) (Normal) mg/dL Urine Ketones (NEGATIVE) mg/dL Urine Blood (NEGATIVE) Urine Nitrate (NEGATIVE) Urine Bilirubin (NEGATIVE) Urine Urobilinogen (0.2-1.0) mg/dL Ur Leukocyte Esterase (Negative) Shelly/uL Urine WBC (Auto) (0-5) /hpf Urine RBC (Auto) (0-3) /hpf Urine Opiates Screen (NEGATIVE) Urine Methadone Screen (NEGATIVE) Ur Barbiturates Screen (NEGATIVE) Ur Phencyclidine Scrn (NEGATIVE) Ur Amphetamines Screen (NEGATIVE) U Benzodiazepines Scrn (NEGATIVE) U Oth Cocaine Metabols (NEGATIVE) U Cannabinoids Screen (NEGATIVE) 01/29/18 01/29/18 01/29/18 Range/Units 11:37 11:01 10:14 WBC (4.8-10.8) K/uL RBC (4.40-5.90) Mil/uL Hgb (12.0-18.0) g/dL Hct (35.0-51.0) % MCV (80.0-94.0) fL MCH (27.0-31.0) pg MCHC (33.0-37.0) g/dL RDW (11.5-14.5) % Plt Count (130-400) K/uL MPV (7.2-11.7) fL Neut % (Auto) (50.0-75.0) % Lymph % (Auto) (20.0-40.0) % [place] % (Auto) (0.0-10.0) % Eos % (Auto) (0.0-4.0) % Baso % (Auto) (0.0-2.0) % Neut # (Auto) (1.8-7.0) K/uL Lymph # (Auto) (1.0-4.3) K/uL [place] # (Auto) (0.0-0.8) K/uL Eos # (Auto) (0.0-0.7) K/uL Baso # (Auto) (0.0-0.2) K/uL pO2 23 L (30-55) mm/Hg VBG pH 7.13 L* (7.32-7.43) VBG pCO2 35 L (40-60) mmHg VBG HCO3 9.9 mmol/L VBG Total CO2 12.7 L (22-28) mmol/L VBG O2 Sat (Calc) 53.5 (40-65) % VBG Base Excess -16.6 L (0.0-2.0) mmol/L VBG Potassium 5.5 H (3.6-5.2) mmol/L Glucose 525 H* (75-110) mg/dl Lactate 2.8 H (0.7-2.1) mmol/L Crit Value Called To Dr younger 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 Value Read Back Y Blood Gas Notified Time 1018 Sodium 132.0 (132-148) mmol/L Potassium (3.6-5.2) mmol/L Chloride 90.0 L (98-107) mmol/L Carbon Dioxide (22-30) mmol/L Anion Gap (10-20) BUN (9-20) mg/dL Creatinine (0.8-1.5) mg/dL Est GFR ( Amer) Est GFR (Non-Af Amer) POC Glucose (mg/dL) 318 H (65-110) mg/dL Random Glucose (75-110) mg/dL Calcium (8.6-10.4) mg/dl Phosphorus (2.5-4.5) mg/dL Magnesium (1.6-2.3) mg/dL Total Bilirubin (0.2-1.3) mg/dL AST (17-59) U/L ALT (21-72) U/L Alkaline Phosphatase (38-126) U/L Total Creatine Kinase 44 L (55-170) U/L CK-MB (Mass) 0.74 (0.0-3.38) ng/mL Troponin I < 0.0120 (0.00-0.120) ng/mL Total Protein (6.3-8.3) g/dL Albumin (3.5-5.0) g/dL Globulin (2.2-3.9) gm/dL Albumin/Globulin Ratio (1.0-2.1) Venous Blood Potassium 5.5 H (3.6-5.2) mmol/L Urine Color (YELLOW) Urine Clarity (Clear) Urine pH (5.0-8.0) Ur Specific [place] (1.003-1.030) Urine Protein (NEGATIVE) mg/dL Urine Glucose (UA) (Normal) mg/dL Urine Ketones (NEGATIVE) mg/dL Urine Blood (NEGATIVE) Urine Nitrate (NEGATIVE) Urine Bilirubin (NEGATIVE) Urine Urobilinogen (0.2-1.0) mg/dL Ur Leukocyte Esterase (Negative) Shelly/uL Urine WBC (Auto) (0-5) /hpf Urine RBC (Auto) (0-3) /hpf Urine Opiates Screen (NEGATIVE) Urine Methadone Screen (NEGATIVE) Ur Barbiturates Screen (NEGATIVE) Ur Phencyclidine Scrn (NEGATIVE) Ur Amphetamines Screen (NEGATIVE) U Benzodiazepines Scrn (NEGATIVE) U Oth Cocaine Metabols (NEGATIVE) U Cannabinoids Screen (NEGATIVE) 01/29/18 01/29/18 Range/Units 10:09 10:09 WBC 7.1 (4.8-10.8) K/uL RBC 5.69 (4.40-5.90) Mil/uL Hgb 16.8 D (12.0-18.0) g/dL Hct 50.4 (35.0-51.0) % MCV 88.5 (80.0-94.0) fL MCH 29.5 (27.0-31.0) pg MCHC 33.3 (33.0-37.0) g/dL RDW 13.5 (11.5-14.5) % Plt Count 252 (130-400) K/uL MPV 10.1 (7.2-11.7) fL Neut % (Auto) 64.2 (50.0-75.0) % Lymph % (Auto) 26.7 (20.0-40.0) % [place]pie % (Auto) 6.5 (0.0-10.0) % Eos % (Auto) 1.4 (0.0-4.0) % Baso % (Auto) 1.2 (0.0-2.0) % Neut # (Auto) 4.6 (1.8-7.0) K/uL Lymph # (Auto) 1.9 (1.0-4.3) K/uL [place] # (Auto) 0.5 (0.0-0.8) K/uL Eos # (Auto) 0.1 (0.0-0.7) K/uL Baso # (Auto) 0.1 (0.0-0.2) K/uL pO2 (30-55) mm/Hg VBG pH (7.32-7.43) VBG pCO2 (40-60) mmHg VBG HCO3 mmol/L VBG Total CO2 (22-28) mmol/L VBG O2 Sat (Calc) (40-65) % VBG Base Excess (0.0-2.0) mmol/L VBG Potassium (3.6-5.2) mmol/L Glucose (75-110) mg/dl Lactate (0.7-2.1) mmol/L Crit Value Called To Crit Value Called By Crit Value Read Back Blood Gas Notified Time Sodium 133 (132-148) mmol/L Potassium 4.5 (3.6-5.2) mmol/L Chloride 94 L (98-107) mmol/L Carbon Dioxide 10 L* D (22-30) mmol/L Anion Gap 33 H (10-20) BUN 11 (9-20) mg/dL Creatinine 0.8 (0.8-1.5) mg/dL Est GFR ( Amer) > 60 Est GFR (Non-Af Amer) > 60 POC Glucose (mg/dL) (65-110) mg/dL Random Glucose 501 H* D (75-110) mg/dL Calcium 9.3 (8.6-10.4) mg/dl Phosphorus (2.5-4.5) mg/dL Magnesium (1.6-2.3) mg/dL Total Bilirubin 1.2 (0.2-1.3) mg/dL AST 26 (17-59) U/L ALT 57 (21-72) U/L Alkaline Phosphatase 144 H D (38-126) U/L Total Creatine Kinase (55-170) U/L CK-MB (Mass) (0.0-3.38) ng/mL Troponin I (0.00-0.120) ng/mL Total Protein 8.4 H (6.3-8.3) g/dL Albumin 5.1 H D (3.5-5.0) g/dL Globulin 3.2 (2.2-3.9) gm/dL Albumin/Globulin Ratio 1.6 (1.0-2.1) Venous Blood Potassium (3.6-5.2) mmol/L Urine Color (YELLOW) Urine Clarity (Clear) Urine pH (5.0-8.0) Ur Specific [place] (1.003-1.030) Urine Protein (NEGATIVE) mg/dL Urine Glucose (UA) (Normal) mg/dL Urine Ketones (NEGATIVE) mg/dL Urine Blood (NEGATIVE) Urine Nitrate (NEGATIVE) Urine Bilirubin (NEGATIVE) Urine Urobilinogen (0.2-1.0) mg/dL Ur Leukocyte Esterase (Negative) Shelly/uL Urine WBC (Auto) (0-5) /hpf Urine RBC (Auto) (0-3) /hpf Urine Opiates Screen (NEGATIVE) Urine Methadone Screen (NEGATIVE) Ur Barbiturates Screen (NEGATIVE) Ur Phencyclidine Scrn (NEGATIVE) Ur Amphetamines Screen (NEGATIVE) U Benzodiazepines Scrn (NEGATIVE) U Oth Cocaine Metabols (NEGATIVE) U Cannabinoids Screen (NEGATIVE) Laboratory Results - last 24 hr 01/29/18 01/29/18 01/29/18 10:09 10:09 10:14 WBC 7.1 RBC 5.69 Hgb 16.8 D Hct 50.4 MCV 88.5 MCH 29.5 MCHC 33.3 RDW 13.5 Plt Count 252 MPV 10.1 Neut % (Auto) 64.2 Lymph % (Auto) 26.7 Gillespie % (Auto) 6.5 Eos % (Auto) 1.4 Baso % (Auto) 1.2 Neut # (Auto) 4.6 Lymph # (Auto) 1.9 [place]illespie # (Auto) 0.5 Eos # (Auto) 0.1 Baso # (Auto) 0.1 pO2 23 L VBG pH 7.13 L* VBG pCO2 35 L VBG HCO3 9.9 VBG Total CO2 12.7 L VBG O2 Sat (Calc) 53.5 VBG Base Excess -16.6 L VBG Potassium 5.5 H Glucose 525 H* Lactate 2.8 H Crit Value Called To Dr younger 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 Value Read Back Y Blood Gas Notified Time 1018 Sodium 133 132.0 Potassium 4.5 Chloride 94 L 90.0 L Carbon Dioxide 10 L* D Anion Gap 33 H BUN 11 Creatinine 0.8 Est GFR ( Amer) > 60 Est GFR (Non-Af Amer) > 60 POC Glucose (mg/dL) Random Glucose 501 H* D Calcium 9.3 Phosphorus Magnesium Total Bilirubin 1.2 AST 26 ALT 57 Alkaline Phosphatase 144 H D Total Creatine Kinase CK-MB (Mass) Troponin I Total Protein 8.4 H Albumin 5.1 H D Globulin 3.2 Albumin/Globulin Ratio 1.6 Venous Blood Potassium 5.5 H Urine Color Urine Clarity Urine pH Ur Specific [place] Urine Protein Urine Glucose (UA) Urine Ketones Urine Blood Urine Nitrate Urine Bilirubin Urine Urobilinogen Ur Leukocyte Esterase Urine WBC (Auto) Urine RBC (Auto) Urine Opiates Screen Urine Methadone Screen Ur Barbiturates Screen Ur Phencyclidine Scrn Ur Amphetamines Screen U Benzodiazepines Scrn U Oth Cocaine Metabols U Cannabinoids Screen 01/29/18 01/29/18 01/29/18 11:01 11:37 11:57 WBC RBC Hgb Hct MCV MCH MCHC RDW Plt Count MPV Neut % (Auto) Lymph % (Auto) [place] % (Auto) Eos % (Auto) Baso % (Auto) Neut # (Auto) Lymph # (Auto) [place] # (Auto) Eos # (Auto) Baso # (Auto) pO2 VBG pH VBG pCO2 VBG HCO3 VBG Total CO2 VBG O2 Sat (Calc) VBG Base Excess VBG Potassium Glucose Lactate Crit Value Called To Crit Value Called By Crit Value Read Back Blood Gas Notified Time Sodium Potassium Chloride Carbon Dioxide Anion Gap BUN Creatinine Est GFR ( Amer) Est GFR (Non-Af Amer) POC Glucose (mg/dL) 318 H 320 H Random Glucose Calcium Phosphorus Magnesium Total Bilirubin AST ALT Alkaline Phosphatase Total Creatine Kinase 44 L CK-MB (Mass) 0.74 Troponin I < 0.0120 Total Protein Albumin Globulin Albumin/Globulin Ratio Venous Blood Potassium Urine Color Urine Clarity Urine pH Ur Specific [place] Urine Protein Urine Glucose (UA) Urine Ketones Urine Blood Urine Nitrate Urine Bilirubin Urine Urobilinogen Ur Leukocyte Esterase Urine WBC (Auto) Urine RBC (Auto) Urine Opiates Screen Urine Methadone Screen Ur Barbiturates Screen Ur Phencyclidine Scrn Ur Amphetamines Screen U Benzodiazepines Scrn U Oth Cocaine Metabols U Cannabinoids Screen 01/29/18 01/29/18 01/29/18 13:03 14:52 15:12 WBC RBC Hgb Hct MCV MCH MCHC RDW Plt Count MPV Neut % (Auto) Lymph % (Auto) [place] % (Auto) Eos % (Auto) Baso % (Auto) Neut # (Auto) Lymph # (Auto) [place] # (Auto) Eos # (Auto) Baso # (Auto) pO2 VBG pH VBG pCO2 VBG HCO3 VBG Total CO2 VBG O2 Sat (Calc) VBG Base Excess VBG Potassium Glucose Lactate Crit Value Called To Crit Value Called By Crit Value Read Back Blood Gas Notified Time Sodium 137 Potassium 3.2 L Chloride 105 Carbon Dioxide 19 L Anion Gap 16 BUN 9 Creatinine 0.5 L Est GFR ( Amer) > 60 Est GFR (Non-Af Amer) > 60 POC Glucose (mg/dL) 264 H 147 H Random Glucose 136 H Calcium 8.0 L Phosphorus Magnesium Total Bilirubin AST ALT Alkaline Phosphatase Total Creatine Kinase CK-MB (Mass) Troponin I Total Protein Albumin Globulin Albumin/Globulin Ratio Venous Blood Potassium Urine Color Urine Clarity Urine pH Ur Specific [place] Urine Protein Urine Glucose (UA) Urine Ketones Urine Blood Urine Nitrate Urine Bilirubin Urine Urobilinogen Ur Leukocyte Esterase Urine WBC (Auto) Urine RBC (Auto) Urine Opiates Screen Urine Methadone Screen Ur Barbiturates Screen Ur Phencyclidine Scrn Ur Amphetamines Screen U Benzodiazepines Scrn U Oth Cocaine Metabols U Cannabinoids Screen 01/29/18 01/29/18 01/29/18 16:05 17:03 17:05 WBC RBC Hgb Hct MCV MCH MCHC RDW Plt Count MPV Neut % (Auto) Lymph % (Auto) [place] % (Auto) Eos % (Auto) Baso % (Auto) Neut # (Auto) Lymph # (Auto) [place] # (Auto) Eos # (Auto) Baso # (Auto) pO2 VBG pH VBG pCO2 VBG HCO3 VBG Total CO2 VBG O2 Sat (Calc) VBG Base Excess VBG Potassium Glucose Lactate Crit Value Called To Crit Value Called By Crit Value Read Back Blood Gas Notified Time Sodium Potassium Chloride Carbon Dioxide Anion Gap BUN Creatinine Est GFR ( Amer) Est GFR (Non-Af Amer) POC Glucose (mg/dL) 82 65 65 Random Glucose Calcium Phosphorus Magnesium Total Bilirubin AST ALT Alkaline Phosphatase Total Creatine Kinase CK-MB (Mass) Troponin I Total Protein Albumin Globulin Albumin/Globulin Ratio Venous Blood Potassium Urine Color Urine Clarity Urine pH Ur Specific [place] Urine Protein Urine Glucose (UA) Urine Ketones Urine Blood Urine Nitrate Urine Bilirubin Urine Urobilinogen Ur Leukocyte Esterase Urine WBC (Auto) Urine RBC (Auto) Urine Opiates Screen Urine Methadone Screen Ur Barbiturates Screen Ur Phencyclidine Scrn Ur Amphetamines Screen U Benzodiazepines Scrn U Oth Cocaine Metabols U Cannabinoids Screen 01/29/18 01/29/18 01/29/18 17:58 18:58 21:26 WBC RBC Hgb Hct MCV MCH MCHC RDW Plt Count MPV Neut % (Auto) Lymph % (Auto) [place] % (Auto) Eos % (Auto) Baso % (Auto) Neut # (Auto) Lymph # (Auto) [place] # (Auto) Eos # (Auto) Baso # (Auto) pO2 VBG pH VBG pCO2 VBG HCO3 VBG Total CO2 VBG O2 Sat (Calc) VBG Base Excess VBG Potassium Glucose Lactate Crit Value Called To Crit Value Called By Crit Value Read Back Blood Gas Notified Time Sodium 133 Potassium 4.1 Chloride 103 Carbon Dioxide 19 L Anion Gap 15 BUN 8 L Creatinine 0.7 L Est GFR ( Amer) > 60 Est GFR (Non-Af Amer) > 60 POC Glucose (mg/dL) 169 H 498 H* Random Glucose 324 H Calcium 7.8 L Phosphorus 2.8 Magnesium 1.5 L Total Bilirubin AST ALT Alkaline Phosphatase Total Creatine Kinase CK-MB (Mass) Troponin I Total Protein Albumin Globulin Albumin/Globulin Ratio Venous Blood Potassium Urine Color Urine Clarity Urine pH Ur Specific [place] Urine Protein Urine Glucose (UA) Urine Ketones Urine Blood Urine Nitrate Urine Bilirubin Urine Urobilinogen Ur Leukocyte Esterase Urine WBC (Auto) Urine RBC (Auto) Urine Opiates Screen Urine Methadone Screen Ur Barbiturates Screen Ur Phencyclidine Scrn Ur Amphetamines Screen U Benzodiazepines Scrn U Oth Cocaine Metabols U Cannabinoids Screen 01/29/18 01/29/18 01/29/18 22:03 22:29 22:29 WBC RBC Hgb Hct MCV MCH MCHC RDW Plt Count MPV Neut % (Auto) Lymph % (Auto) [place] % (Auto) Eos % (Auto) Baso % (Auto) Neut # (Auto) Lymph # (Auto) [place] # (Auto) Eos # (Auto) Baso # (Auto) pO2 VBG pH VBG pCO2 VBG HCO3 VBG Total CO2 VBG O2 Sat (Calc) VBG Base Excess VBG Potassium Glucose Lactate Crit Value Called To Crit Value Called By Crit Value Read Back Blood Gas Notified Time Sodium Potassium Chloride Carbon Dioxide Anion Gap BUN Creatinine Est GFR ( Amer) Est GFR (Non-Af Amer) POC Glucose (mg/dL) > 500 H* Random Glucose Calcium Phosphorus Magnesium Total Bilirubin AST ALT Alkaline Phosphatase Total Creatine Kinase CK-MB (Mass) Troponin I Total Protein Albumin Globulin Albumin/Globulin Ratio Venous Blood Potassium Urine Color Colorless Urine Clarity Clear Urine pH 6.0 Ur Specific [place] 1.020 Urine Protein Negative Urine Glucose (UA) 3+ H Urine Ketones 1+ H Urine Blood Negative Urine Nitrate Negative Urine Bilirubin Negative Urine Urobilinogen Normal Ur Leukocyte Esterase Neg Urine WBC (Auto) < 1 Urine RBC (Auto) < 1 Urine Opiates Screen Negative Urine Methadone Screen Negative Ur Barbiturates Screen Negative Ur Phencyclidine Scrn Negative Ur Amphetamines Screen Negative U Benzodiazepines Scrn Negative U Oth Cocaine Metabols Negative U Cannabinoids Screen Positive H 01/29/18 01/30/18 01/30/18 22:54 00:08 01:02 WBC RBC Hgb Hct MCV MCH MCHC RDW Plt Count MPV Neut % (Auto) Lymph % (Auto) [place] % (Auto) Eos % (Auto) Baso % (Auto) Neut # (Auto) Lymph # (Auto) [place] # (Auto) Eos # (Auto) Baso # (Auto) pO2 VBG pH VBG pCO2 VBG HCO3 VBG Total CO2 VBG O2 Sat (Calc) VBG Base Excess VBG Potassium Glucose Lactate Crit Value Called To Crit Value Called By Crit Value Read Back Blood Gas Notified Time Sodium Potassium Chloride Carbon Dioxide Anion Gap BUN Creatinine Est GFR ( Amer) Est GFR (Non-Af Amer) POC Glucose (mg/dL) 488 H* 336 H 257 H Random Glucose Calcium Phosphorus Magnesium Total Bilirubin AST ALT Alkaline Phosphatase Total Creatine Kinase CK-MB (Mass) Troponin I Total Protein Albumin Globulin Albumin/Globulin Ratio Venous Blood Potassium Urine Color Urine Clarity Urine pH Ur Specific [place] Urine Protein Urine Glucose (UA) Urine Ketones Urine Blood Urine Nitrate Urine Bilirubin Urine Urobilinogen Ur Leukocyte Esterase Urine WBC (Auto) Urine RBC (Auto) Urine Opiates Screen Urine Methadone Screen Ur Barbiturates Screen Ur Phencyclidine Scrn Ur Amphetamines Screen U Benzodiazepines Scrn U Oth Cocaine Metabols U Cannabinoids Screen 01/30/18 01/30/18 01/30/18 01:58 03:16 03:56 WBC RBC Hgb Hct MCV MCH MCHC RDW Plt Count MPV Neut % (Auto) Lymph % (Auto) [place] % (Auto) Eos % (Auto) Baso % (Auto) Neut # (Auto) Lymph # (Auto) [place] # (Auto) Eos # (Auto) Baso # (Auto) pO2 VBG pH VBG pCO2 VBG HCO3 VBG Total CO2 VBG O2 Sat (Calc) VBG Base Excess VBG Potassium Glucose Lactate Crit Value Called To Crit Value Called By Crit Value Read Back Blood Gas Notified Time Sodium Potassium Chloride Carbon Dioxide Anion Gap BUN Creatinine Est GFR ( Amer) Est GFR (Non-Af Amer) POC Glucose (mg/dL) 262 H 212 H 158 H Random Glucose Calcium Phosphorus Magnesium Total Bilirubin AST ALT Alkaline Phosphatase Total Creatine Kinase CK-MB (Mass) Troponin I Total Protein Albumin Globulin Albumin/Globulin Ratio Venous Blood Potassium Urine Color Urine Clarity Urine pH Ur Specific [place] Urine Protein Urine Glucose (UA) Urine Ketones Urine Blood Urine Nitrate Urine Bilirubin Urine Urobilinogen Ur Leukocyte Esterase Urine WBC (Auto) Urine RBC (Auto) Urine Opiates Screen Urine Methadone Screen Ur Barbiturates Screen Ur Phencyclidine Scrn Ur Amphetamines Screen U Benzodiazepines Scrn U Oth Cocaine Metabols U Cannabinoids Screen 01/30/18 01/30/18 01/30/18 05:04 06:04 06:14 WBC RBC Hgb Hct MCV MCH MCHC RDW Plt Count MPV Neut % (Auto) Lymph % (Auto) [place] % (Auto) Eos % (Auto) Baso % (Auto) Neut # (Auto) Lymph # (Auto) [place] # (Auto) Eos # (Auto) Baso # (Auto) pO2 VBG pH VBG pCO2 VBG HCO3 VBG Total CO2 VBG O2 Sat (Calc) VBG Base Excess VBG Potassium Glucose Lactate Crit Value Called To Crit Value Called By Crit Value Read Back Blood Gas Notified Time Sodium 142 Potassium 3.4 L Chloride 108 H Carbon Dioxide 24 Anion Gap 14 BUN 5 L Creatinine 0.6 L Est GFR ( Amer) > 60 Est GFR (Non-Af Amer) > 60 POC Glucose (mg/dL) 136 H 101 Random Glucose 128 H Calcium 8.0 L Phosphorus 2.7 Magnesium 2.1 Total Bilirubin 0.6 AST 24 ALT 42 Alkaline Phosphatase 78 Total Creatine Kinase CK-MB (Mass) Troponin I Total Protein 6.2 L Albumin 3.6 Globulin 2.7 Albumin/Globulin Ratio 1.3 Venous Blood Potassium Urine Color Urine Clarity Urine pH Ur Specific [place] Urine Protein Urine Glucose (UA) Urine Ketones Urine Blood Urine Nitrate Urine Bilirubin Urine Urobilinogen Ur Leukocyte Esterase Urine WBC (Auto) Urine RBC (Auto) Urine Opiates Screen Urine Methadone Screen Ur Barbiturates Screen Ur Phencyclidine Scrn Ur Amphetamines Screen U Benzodiazepines Scrn U Oth Cocaine Metabols U Cannabinoids Screen 01/30/18 01/30/18 06:24 07:34 WBC 6.2 RBC 4.76 Hgb 13.8 D Hct 40.8 MCV 85.8 D MCH 29.0 MCHC 33.8 RDW 12.9 Plt Count 208 MPV 9.7 Neut % (Auto) 59.7 Lymph % (Auto) 29.0 [place] % (Auto) 9.4 Eos % (Auto) 1.4 Baso % (Auto) 0.5 Neut # (Auto) 3.7 Lymph # (Auto) 1.8 [place] # (Auto) 0.6 Eos # (Auto) 0.1 Baso # (Auto) 0.0 pO2 VBG pH VBG pCO2 VBG HCO3 VBG Total CO2 VBG O2 Sat (Calc) VBG Base Excess VBG Potassium Glucose Lactate Crit Value Called To Crit Value Called By Crit Value Read Back Blood Gas Notified Time Sodium Potassium Chloride Carbon Dioxide Anion Gap BUN Creatinine Est GFR ( Amer) Est GFR (Non-Af Amer) POC Glucose (mg/dL) 114 H Random Glucose Calcium Phosphorus Magnesium Total Bilirubin AST ALT Alkaline Phosphatase Total Creatine Kinase CK-MB (Mass) Troponin I Total Protein Albumin Globulin Albumin/Globulin Ratio Venous Blood Potassium Urine Color Urine Clarity Urine pH Ur Specific [place] Urine Protein Urine Glucose (UA) Urine Ketones Urine Blood Urine Nitrate Urine Bilirubin Urine Urobilinogen Ur Leukocyte Esterase Urine WBC (Auto) Urine RBC (Auto) Urine Opiates Screen Urine Methadone Screen Ur Barbiturates Screen Ur Phencyclidine Scrn Ur Amphetamines Screen U Benzodiazepines Scrn U Oth Cocaine Metabols U Cannabinoids Screen EKG/Cardiology Studies: Cardiology / EKG Studies 01/29/18 11:22 EKG [ELECTROCARDIOGRAM] Stat Comment: Mode Of Transportation: Reason For Exam: hx of QTc prolongation 01/29/18 11:51 EKG [ELECTROCARDIOGRAM] Stat Comment: Mode Of Transportation: Reason For Exam: hx of QTc prolongation 01/30/18 08:00 EKG [ELECTROCARDIOGRAM] DAILY Comment: Mode Of Transportation: Reason For Exam: QTc prolongation Fingerstick Blood Sugar Results: 114 Critical Care Progress Note - Nutrition Nutrition: Nutrition Category Date Time Status Consistent Carbohydrate [DIET] Diets 01/29/18 Dinner Active Assessment/Plan - Assessment and Plan (Free Text) Plan: Neuro: - GCS 15 Cardio: A: Hx of QTc prolongation - 2/2 psych medications - EKG --> QTc 510 --> 440s - resumed Remeron - Will continue to monitor - ECHO: LVEF 75% 07/2017) - Stress test: Patient unable tolerate test, 2/2 MSK pain not cardiac in nature Pulm: - No Acute Issues GI: A: IDDM Type 1, Noncompliant - HgA1C 16.4 (11/2017) - Lipid Panel: Trig 66, Chol 120, LDL 53, HDL 46 - [place] Q6H - Anion Gap: 29 on admission - NPO, IVF, Insulin drip - Anion gap is closed - off; off fluids, diet resumed, coverage placed - Off insulin drip, will resume home regimen of Lantus 10 units SC HS, Regular Insulin 4 units AC Meals - Lisinopril 2.5mg PO daily, Crestor 5mg PO daily A: Crohn's Disease - Previous perianal abscess s/p I&D 11/[address] Silver A: Gastritis Psych: A: Schizophrenia,Bipolar disorder, Anxiety disorder, Depression - Psych drugs on hold- due to previous QTc prolongation - Patient says he is on Seroquel and Trazadone prescribed to him by Dr. Barnett - this was stopped in July due to prolonged QTc and he was started on Lexapro and Remeron. MSK: A: Onychomycosis Disposition: Patient is transferred to med/surg DW Olga Ferrari DO, PGY-1 <Zoltan Conrejo S - Last Filed: 01/30/18 17:47> CCU Objective - Vital Signs / Intake & Output Vital Signs (Last 4 hours): Vital Signs Temp 01/30/18 14:00 97.2 F L Intake and Output (Last 8hrs): Intake & Output 01/30/18 01/30/18 01/30/18 06:59 14:59 22:59 Intake Total 1105 1325 Output Total 1750 Balance -645 1325 Weight 108 lb 8 oz Intake: IV 29 Intake, IV Amount 626 825 Right Forearm 26 Right Hand 450 y line to right arm 600 375 Oral 450 500 Output: Urine 1150 Urine, Voided 1150 Stool 600 Other: # Voids Urine, Voided 2 # Bowel Movements 4 2 - Medications Active Medications: Active Medications Generic Name Dose Route Start Last Admin Trade Name Freq PRN Reason Stop Dose Admin Dextrose 0 ml 01/29/18 17:13 Dextrose 50% Inj IV STAT PRN Hypoglycemia Protocol Protocol Dextrose 0 gm 01/29/18 17:13 Glutose 15 PO ONCE PRN Hypoglycemia Protocol Protocol Glucagon 0 mg 01/29/18 17:13 Glucagen Diagnostic Kit IM STAT PRN Hypoglycemia Protocol Protocol Dextrose 1,000 mls @ 0 mls/hr 01/29/18 17:13 Dextrose 5% In Water 1000 Ml IV .Q0M PRN Hypoglycemia Protocol Protocol Per Protocol Insulin Aspart 4 unit 01/30/18 11:30 01/30/18 16:25 Novolog SC 4 units ACHS JOHANA Administration Insulin Glargine 10 unit 01/29/18 22:00 01/29/18 22:00 Lantus SC 10 units HS JOHANA Administration Lisinopril 2.5 mg 01/30/18 10:00 01/30/18 09:30 Zestril PO 2.5 mg DAILY JOHANA Administration Metoclopramide HCl 10 mg 01/29/18 11:29 01/29/18 22:05 Reglan IVP 10 mg Q6H PRN Administration Nausea/Vomiting Mirtazapine 30 mg 01/29/18 22:00 01/29/18 22:00 Remeron PO 30 mg HS JOHANA Administration Pantoprazole Sodium 40 mg 01/30/18 10:00 01/30/18 09:30 Protonix Ec Tab PO 40 mg DAILY JOHANA Administration Rosuvastatin Calcium 2.5 mg 01/29/18 22:00 01/29/18 22:00 Crestor PO 2.5 mg HS JOHANA Administration - Patient Studies Lab Studies: Lab Studies 01/30/18 01/30/18 01/30/18 Range/Units 15:44 12:31 07:34 WBC (4.8-10.8) K/uL RBC (4.40-5.90) Mil/uL Hgb (12.0-18.0) g/dL Hct (35.0-51.0) % MCV (80.0-94.0) fL MCH (27.0-31.0) pg MCHC (33.0-37.0) g/dL RDW (11.5-14.5) % Plt Count (130-400) K/uL MPV (7.2-11.7) fL Neut % (Auto) (50.0-75.0) % Lymph % (Auto) (20.0-40.0) % [place] % (Auto) (0.0-10.0) % Eos % (Auto) (0.0-4.0) % Baso % (Auto) (0.0-2.0) % Neut # (Auto) (1.8-7.0) K/uL Lymph # (Auto) (1.0-4.3) K/uL [place] # (Auto) (0.0-0.8) K/uL Eos # (Auto) (0.0-0.7) K/uL Baso # (Auto) (0.0-0.2) K/uL Sodium (132-148) mmol/L Potassium (3.6-5.2) mmol/L Chloride (98-107) mmol/L Carbon Dioxide (22-30) mmol/L Anion Gap (10-20) BUN (9-20) mg/dL Creatinine (0.8-1.5) mg/dL Est GFR ( Amer) Est GFR (Non-Af Amer) POC Glucose (mg/dL) 298 H 347 H 114 H (65-110) mg/dL Random Glucose (75-110) mg/dL Calcium (8.6-10.4) mg/dl Phosphorus (2.5-4.5) mg/dL Magnesium (1.6-2.3) mg/dL Total Bilirubin (0.2-1.3) mg/dL AST (17-59) U/L ALT (21-72) U/L Alkaline Phosphatase (38-126) U/L Total Protein (6.3-8.3) g/dL Albumin (3.5-5.0) g/dL Globulin (2.2-3.9) gm/dL Albumin/Globulin Ratio (1.0-2.1) Urine Color (YELLOW) Urine Clarity (Clear) Urine pH (5.0-8.0) Ur Specific [place] (1.003-1.030) Urine Protein (NEGATIVE) mg/dL Urine Glucose (UA) (Normal) mg/dL Urine Ketones (NEGATIVE) mg/dL Urine Blood (NEGATIVE) Urine Nitrate (NEGATIVE) Urine Bilirubin (NEGATIVE) Urine Urobilinogen (0.2-1.0) mg/dL Ur Leukocyte Esterase (Negative) Shelly/uL Urine WBC (Auto) (0-5) /hpf Urine RBC (Auto) (0-3) /hpf Urine Opiates Screen (NEGATIVE) Urine Methadone Screen (NEGATIVE) Ur Barbiturates Screen (NEGATIVE) Ur Phencyclidine Scrn (NEGATIVE) Ur Amphetamines Screen (NEGATIVE) U Benzodiazepines Scrn (NEGATIVE) U Oth Cocaine Metabols (NEGATIVE) U Cannabinoids Screen (NEGATIVE) 01/30/18 01/30/18 01/30/18 Range/Units 06:24 06:14 06:04 WBC 6.2 (4.8-10.8) K/uL RBC 4.76 (4.40-5.90) Mil/uL Hgb 13.8 D (12.0-18.0) g/dL Hct 40.8 (35.0-51.0) % MCV 85.8 D (80.0-94.0) fL MCH 29.0 (27.0-31.0) pg MCHC 33.8 (33.0-37.0) g/dL RDW 12.9 (11.5-14.5) % Plt Count 208 (130-400) K/uL MPV 9.7 (7.2-11.7) fL Neut % (Auto) 59.7 (50.0-75.0) % Lymph % (Auto) 29.0 (20.0-40.0) % [place] % (Auto) 9.4 (0.0-10.0) % Eos % (Auto) 1.4 (0.0-4.0) % Baso % (Auto) 0.5 (0.0-2.0) % Neut # (Auto) 3.7 (1.8-7.0) K/uL Lymph # (Auto) 1.8 (1.0-4.3) K/uL [place] # (Auto) 0.6 (0.0-0.8) K/uL Eos # (Auto) 0.1 (0.0-0.7) K/uL Baso # (Auto) 0.0 (0.0-0.2) K/uL Sodium 142 (132-148) mmol/L Potassium 3.4 L (3.6-5.2) mmol/L Chloride 108 H (98-107) mmol/L Carbon Dioxide 24 (22-30) mmol/L Anion Gap 14 (10-20) BUN 5 L (9-20) mg/dL Creatinine 0.6 L (0.8-1.5) mg/dL Est GFR ( Amer) > 60 Est GFR (Non-Af Amer) > 60 POC Glucose (mg/dL) 101 (65-110) mg/dL Random Glucose 128 H (75-110) mg/dL Calcium 8.0 L (8.6-10.4) mg/dl Phosphorus 2.7 (2.5-4.5) mg/dL Magnesium 2.1 (1.6-2.3) mg/dL Total Bilirubin 0.6 (0.2-1.3) mg/dL AST 24 (17-59) U/L ALT 42 (21-72) U/L Alkaline Phosphatase 78 (38-126) U/L Total Protein 6.2 L (6.3-8.3) g/dL Albumin 3.6 (3.5-5.0) g/dL Globulin 2.7 (2.2-3.9) gm/dL Albumin/Globulin Ratio 1.3 (1.0-2.1) Urine Color (YELLOW) Urine Clarity (Clear) Urine pH (5.0-8.0) Ur Specific [place] (1.003-1.030) Urine Protein (NEGATIVE) mg/dL Urine Glucose (UA) (Normal) mg/dL Urine Ketones (NEGATIVE) mg/dL Urine Blood (NEGATIVE) Urine Nitrate (NEGATIVE) Urine Bilirubin (NEGATIVE) Urine Urobilinogen (0.2-1.0) mg/dL Ur Leukocyte Esterase (Negative) Shelly/uL Urine WBC (Auto) (0-5) /hpf Urine RBC (Auto) (0-3) /hpf Urine Opiates Screen (NEGATIVE) Urine Methadone Screen (NEGATIVE) Ur Barbiturates Screen (NEGATIVE) Ur Phencyclidine Scrn (NEGATIVE) Ur Amphetamines Screen (NEGATIVE) U Benzodiazepines Scrn (NEGATIVE) U Oth Cocaine Metabols (NEGATIVE) U Cannabinoids Screen (NEGATIVE) 01/30/18 01/30/18 01/30/18 Range/Units 05:04 03:56 03:16 WBC (4.8-10.8) K/uL RBC (4.40-5.90) Mil/uL Hgb (12.0-18.0) g/dL Hct (35.0-51.0) % MCV (80.0-94.0) fL MCH (27.0-31.0) pg MCHC (33.0-37.0) g/dL RDW (11.5-14.5) % Plt Count (130-400) K/uL MPV (7.2-11.7) fL Neut % (Auto) (50.0-75.0) % Lymph % (Auto) (20.0-40.0) % [place] % (Auto) (0.0-10.0) % Eos % (Auto) (0.0-4.0) % Baso % (Auto) (0.0-2.0) % Neut # (Auto) (1.8-7.0) K/uL Lymph # (Auto) (1.0-4.3) K/uL [place] # (Auto) (0.0-0.8) K/uL Eos # (Auto) (0.0-0.7) K/uL Baso # (Auto) (0.0-0.2) K/uL Sodium (132-148) mmol/L Potassium (3.6-5.2) mmol/L Chloride (98-107) mmol/L Carbon Dioxide (22-30) mmol/L Anion Gap (10-20) BUN (9-20) mg/dL Creatinine (0.8-1.5) mg/dL Est GFR ( Amer) Est GFR (Non-Af Amer) POC Glucose (mg/dL) 136 H 158 H 212 H (65-110) mg/dL Random Glucose (75-110) mg/dL Calcium (8.6-10.4) mg/dl Phosphorus (2.5-4.5) mg/dL Magnesium (1.6-2.3) mg/dL Total Bilirubin (0.2-1.3) mg/dL AST (17-59) U/L ALT (21-72) U/L Alkaline Phosphatase (38-126) U/L Total Protein (6.3-8.3) g/dL Albumin (3.5-5.0) g/dL Globulin (2.2-3.9) gm/dL Albumin/Globulin Ratio (1.0-2.1) Urine Color (YELLOW) Urine Clarity (Clear) Urine pH (5.0-8.0) Ur Specific [place] (1.003-1.030) Urine Protein (NEGATIVE) mg/dL Urine Glucose (UA) (Normal) mg/dL Urine Ketones (NEGATIVE) mg/dL Urine Blood (NEGATIVE) Urine Nitrate (NEGATIVE) Urine Bilirubin (NEGATIVE) Urine Urobilinogen (0.2-1.0) mg/dL Ur Leukocyte Esterase (Negative) Shelly/uL Urine WBC (Auto) (0-5) /hpf Urine RBC (Auto) (0-3) /hpf Urine Opiates Screen (NEGATIVE) Urine Methadone Screen (NEGATIVE) Ur Barbiturates Screen (NEGATIVE) Ur Phencyclidine Scrn (NEGATIVE) Ur Amphetamines Screen (NEGATIVE) U Benzodiazepines Scrn (NEGATIVE) U Oth Cocaine Metabols (NEGATIVE) U Cannabinoids Screen (NEGATIVE) 01/30/18 01/30/18 01/30/18 Range/Units 01:58 01:02 00:08 WBC (4.8-10.8) K/uL RBC (4.40-5.90) Mil/uL Hgb (12.0-18.0) g/dL Hct (35.0-51.0) % MCV (80.0-94.0) fL MCH (27.0-31.0) pg MCHC (33.0-37.0) g/dL RDW (11.5-14.5) % Plt Count (130-400) K/uL MPV (7.2-11.7) fL Neut % (Auto) (50.0-75.0) % Lymph % (Auto) (20.0-40.0) % [place] % (Auto) (0.0-10.0) % Eos % (Auto) (0.0-4.0) % Baso % (Auto) (0.0-2.0) % Neut # (Auto) (1.8-7.0) K/uL Lymph # (Auto) (1.0-4.3) K/uL [place] # (Auto) (0.0-0.8) K/uL Eos # (Auto) (0.0-0.7) K/uL Baso # (Auto) (0.0-0.2) K/uL Sodium (132-148) mmol/L Potassium (3.6-5.2) mmol/L Chloride (98-107) mmol/L Carbon Dioxide (22-30) mmol/L Anion Gap (10-20) BUN (9-20) mg/dL Creatinine (0.8-1.5) mg/dL Est GFR ( Amer) Est GFR (Non-Af Amer) POC Glucose (mg/dL) 262 H 257 H 336 H (65-110) mg/dL Random Glucose (75-110) mg/dL Calcium (8.6-10.4) mg/dl Phosphorus (2.5-4.5) mg/dL Magnesium (1.6-2.3) mg/dL Total Bilirubin (0.2-1.3) mg/dL AST (17-59) U/L ALT (21-72) U/L Alkaline Phosphatase (38-126) U/L Total Protein (6.3-8.3) g/dL Albumin (3.5-5.0) g/dL Globulin (2.2-3.9) gm/dL Albumin/Globulin Ratio (1.0-2.1) Urine Color (YELLOW) Urine Clarity (Clear) Urine pH (5.0-8.0) Ur Specific [place] (1.003-1.030) Urine Protein (NEGATIVE) mg/dL Urine Glucose (UA) (Normal) mg/dL Urine Ketones (NEGATIVE) mg/dL Urine Blood (NEGATIVE) Urine Nitrate (NEGATIVE) Urine Bilirubin (NEGATIVE) Urine Urobilinogen (0.2-1.0) mg/dL Ur Leukocyte Esterase (Negative) Shelly/uL Urine WBC (Auto) (0-5) /hpf Urine RBC (Auto) (0-3) /hpf Urine Opiates Screen (NEGATIVE) Urine Methadone Screen (NEGATIVE) Ur Barbiturates Screen (NEGATIVE) Ur Phencyclidine Scrn (NEGATIVE) Ur Amphetamines Screen (NEGATIVE) U Benzodiazepines Scrn (NEGATIVE) U Oth Cocaine Metabols (NEGATIVE) U Cannabinoids Screen (NEGATIVE) 01/29/18 01/29/18 01/29/18 Range/Units 22:54 22:29 22:29 WBC (4.8-10.8) K/uL RBC (4.40-5.90) Mil/uL Hgb (12.0-18.0) g/dL Hct (35.0-51.0) % MCV (80.0-94.0) fL MCH (27.0-31.0) pg MCHC (33.0-37.0) g/dL RDW (11.5-14.5) % Plt Count (130-400) K/uL MPV (7.2-11.7) fL Neut % (Auto) (50.0-75.0) % Lymph % (Auto) (20.0-40.0) % [place] % (Auto) (0.0-10.0) % Eos % (Auto) (0.0-4.0) % Baso % (Auto) (0.0-2.0) % Neut # (Auto) (1.8-7.0) K/uL Lymph # (Auto) (1.0-4.3) K/uL [place] # (Auto) (0.0-0.8) K/uL Eos # (Auto) (0.0-0.7) K/uL Baso # (Auto) (0.0-0.2) K/uL Sodium (132-148) mmol/L Potassium (3.6-5.2) mmol/L Chloride (98-107) mmol/L Carbon Dioxide (22-30) mmol/L Anion Gap (10-20) BUN (9-20) mg/dL Creatinine (0.8-1.5) mg/dL Est GFR ( Amer) Est GFR (Non-Af Amer) POC Glucose (mg/dL) 488 H* (65-110) mg/dL Random Glucose (75-110) mg/dL Calcium (8.6-10.4) mg/dl Phosphorus (2.5-4.5) mg/dL Magnesium (1.6-2.3) mg/dL Total Bilirubin (0.2-1.3) mg/dL AST (17-59) U/L ALT (21-72) U/L Alkaline Phosphatase (38-126) U/L Total Protein (6.3-8.3) g/dL Albumin (3.5-5.0) g/dL Globulin (2.2-3.9) gm/dL Albumin/Globulin Ratio (1.0-2.1) Urine Color Colorless (YELLOW) Urine Clarity Clear (Clear) Urine pH 6.0 (5.0-8.0) Ur Specific [place] 1.020 (1.003-1.030) Urine Protein Negative (NEGATIVE) mg/dL Urine Glucose (UA) 3+ H (Normal) mg/dL Urine Ketones 1+ H (NEGATIVE) mg/dL Urine Blood Negative (NEGATIVE) Urine Nitrate Negative (NEGATIVE) Urine Bilirubin Negative (NEGATIVE) Urine Urobilinogen Normal (0.2-1.0) mg/dL Ur Leukocyte Esterase Neg (Negative) Shelly/uL Urine WBC (Auto) < 1 (0-5) /hpf Urine RBC (Auto) < 1 (0-3) /hpf Urine Opiates Screen Negative (NEGATIVE) Urine Methadone Screen Negative (NEGATIVE) Ur Barbiturates Screen Negative (NEGATIVE) Ur Phencyclidine Scrn Negative (NEGATIVE) Ur Amphetamines Screen Negative (NEGATIVE) U Benzodiazepines Scrn Negative (NEGATIVE) U Oth Cocaine Metabols Negative (NEGATIVE) U Cannabinoids Screen Positive H (NEGATIVE) 01/29/18 01/29/18 01/29/18 Range/Units 22:03 21:26 18:58 WBC (4.8-10.8) K/uL RBC (4.40-5.90) Mil/uL Hgb (12.0-18.0) g/dL Hct (35.0-51.0) % MCV (80.0-94.0) fL MCH (27.0-31.0) pg MCHC (33.0-37.0) g/dL RDW (11.5-14.5) % Plt Count (130-400) K/uL MPV (7.2-11.7) fL Neut % (Auto) (50.0-75.0) % Lymph % (Auto) (20.0-40.0) % [place] % (Auto) (0.0-10.0) % Eos % (Auto) (0.0-4.0) % Baso % (Auto) (0.0-2.0) % Neut # (Auto) (1.8-7.0) K/uL Lymph # (Auto) (1.0-4.3) K/uL [place] # (Auto) (0.0-0.8) K/uL Eos # (Auto) (0.0-0.7) K/uL Baso # (Auto) (0.0-0.2) K/uL Sodium 133 (132-148) mmol/L Potassium 4.1 (3.6-5.2) mmol/L Chloride 103 (98-107) mmol/L Carbon Dioxide 19 L (22-30) mmol/L Anion Gap 15 (10-20) BUN 8 L (9-20) mg/dL Creatinine 0.7 L (0.8-1.5) mg/dL Est GFR ( Amer) > 60 Est GFR (Non-Af Amer) > 60 POC Glucose (mg/dL) > 500 H* 498 H* (65-110) mg/dL Random Glucose 324 H (75-110) mg/dL Calcium 7.8 L (8.6-10.4) mg/dl Phosphorus 2.8 (2.5-4.5) mg/dL Magnesium 1.5 L (1.6-2.3) mg/dL Total Bilirubin (0.2-1.3) mg/dL AST (17-59) U/L ALT (21-72) U/L Alkaline Phosphatase (38-126) U/L Total Protein (6.3-8.3) g/dL Albumin (3.5-5.0) g/dL Globulin (2.2-3.9) gm/dL Albumin/Globulin Ratio (1.0-2.1) Urine Color (YELLOW) Urine Clarity (Clear) Urine pH (5.0-8.0) Ur Specific [place] (1.003-1.030) Urine Protein (NEGATIVE) mg/dL Urine Glucose (UA) (Normal) mg/dL Urine Ketones (NEGATIVE) mg/dL Urine Blood (NEGATIVE) Urine Nitrate (NEGATIVE) Urine Bilirubin (NEGATIVE) Urine Urobilinogen (0.2-1.0) mg/dL Ur Leukocyte Esterase (Negative) Shelly/uL Urine WBC (Auto) (0-5) /hpf Urine RBC (Auto) (0-3) /hpf Urine Opiates Screen (NEGATIVE) Urine Methadone Screen (NEGATIVE) Ur Barbiturates Screen (NEGATIVE) Ur Phencyclidine Scrn (NEGATIVE) Ur Amphetamines Screen (NEGATIVE) U Benzodiazepines Scrn (NEGATIVE) U Oth Cocaine Metabols (NEGATIVE) U Cannabinoids Screen (NEGATIVE) 01/29/18 Range/Units 17:58 WBC (4.8-10.8) K/uL RBC (4.40-5.90) Mil/uL Hgb (12.0-18.0) g/dL Hct (35.0-51.0) % MCV (80.0-94.0) fL MCH (27.0-31.0) pg MCHC (33.0-37.0) g/dL RDW (11.5-14.5) % Plt Count (130-400) K/uL MPV (7.2-11.7) fL Neut % (Auto) (50.0-75.0) % Lymph % (Auto) (20.0-40.0) % [place] % (Auto) (0.0-10.0) % Eos % (Auto) (0.0-4.0) % Baso % (Auto) (0.0-2.0) % Neut # (Auto) (1.8-7.0) K/uL Lymph # (Auto) (1.0-4.3) K/uL [place] # (Auto) (0.0-0.8) K/uL Eos # (Auto) (0.0-0.7) K/uL Baso # (Auto) (0.0-0.2) K/uL Sodium (132-148) mmol/L Potassium (3.6-5.2) mmol/L Chloride (98-107) mmol/L Carbon Dioxide (22-30) mmol/L Anion Gap (10-20) BUN (9-20) mg/dL Creatinine (0.8-1.5) mg/dL Est GFR ( Amer) Est GFR (Non-Af Amer) POC Glucose (mg/dL) 169 H (65-110) mg/dL Random Glucose (75-110) mg/dL Calcium (8.6-10.4) mg/dl Phosphorus (2.5-4.5) mg/dL Magnesium (1.6-2.3) mg/dL Total Bilirubin (0.2-1.3) mg/dL AST (17-59) U/L ALT (21-72) U/L Alkaline Phosphatase (38-126) U/L Total Protein (6.3-8.3) g/dL Albumin (3.5-5.0) g/dL Globulin (2.2-3.9) gm/dL Albumin/Globulin Ratio (1.0-2.1) Urine Color (YELLOW) Urine Clarity (Clear) Urine pH (5.0-8.0) Ur Specific [place] (1.003-1.030) Urine Protein (NEGATIVE) mg/dL Urine Glucose (UA) (Normal) mg/dL Urine Ketones (NEGATIVE) mg/dL Urine Blood (NEGATIVE) Urine Nitrate (NEGATIVE) Urine Bilirubin (NEGATIVE) Urine Urobilinogen (0.2-1.0) mg/dL Ur Leukocyte Esterase (Negative) Shelly/uL Urine WBC (Auto) (0-5) /hpf Urine RBC (Auto) (0-3) /hpf Urine Opiates Screen (NEGATIVE) Urine Methadone Screen (NEGATIVE) Ur Barbiturates Screen (NEGATIVE) Ur Phencyclidine Scrn (NEGATIVE) Ur Amphetamines Screen (NEGATIVE) U Benzodiazepines Scrn (NEGATIVE) U Oth Cocaine Metabols (NEGATIVE) U Cannabinoids Screen (NEGATIVE) Laboratory Results - last 24 hr 01/29/18 01/29/18 01/29/18 17:58 18:58 21:26 WBC RBC Hgb Hct MCV MCH MCHC RDW Plt Count MPV Neut % (Auto) Lymph % (Auto) [place] % (Auto) Eos % (Auto) Baso % (Auto) Neut # (Auto) Lymph # (Auto) [place] # (Auto) Eos # (Auto) Baso # (Auto) Sodium 133 Potassium 4.1 Chloride 103 Carbon Dioxide 19 L Anion Gap 15 BUN 8 L Creatinine 0.7 L Est GFR ( Amer) > 60 Est GFR (Non-Af Amer) > 60 POC Glucose (mg/dL) 169 H 498 H* Random Glucose 324 H Calcium 7.8 L Phosphorus 2.8 Magnesium 1.5 L Total Bilirubin AST ALT Alkaline Phosphatase Total Protein Albumin Globulin Albumin/Globulin Ratio Urine Color Urine Clarity Urine pH Ur Specific [place] Urine Protein Urine Glucose (UA) Urine Ketones Urine Blood Urine Nitrate Urine Bilirubin Urine Urobilinogen Ur Leukocyte Esterase Urine WBC (Auto) Urine RBC (Auto) Urine Opiates Screen Urine Methadone Screen Ur Barbiturates Screen Ur Phencyclidine Scrn Ur Amphetamines Screen U Benzodiazepines Scrn U Oth Cocaine Metabols U Cannabinoids Screen 01/29/18 01/29/18 01/29/18 22:03 22:29 22:29 WBC RBC Hgb Hct MCV MCH MCHC RDW Plt Count MPV Neut % (Auto) Lymph % (Auto) [place] % (Auto) Eos % (Auto) Baso % (Auto) Neut # (Auto) Lymph # (Auto) [place] # (Auto) Eos # (Auto) Baso # (Auto) Sodium Potassium Chloride Carbon Dioxide Anion Gap BUN Creatinine Est GFR ( Amer) Est GFR (Non-Af Amer) POC Glucose (mg/dL) > 500 H* Random Glucose Calcium Phosphorus Magnesium Total Bilirubin AST ALT Alkaline Phosphatase Total Protein Albumin Globulin Albumin/Globulin Ratio Urine Color Colorless Urine Clarity Clear Urine pH 6.0 Ur Specific [place] 1.020 Urine Protein Negative Urine Glucose (UA) 3+ H Urine Ketones 1+ H Urine Blood Negative Urine Nitrate Negative Urine Bilirubin Negative Urine Urobilinogen Normal Ur Leukocyte Esterase Neg Urine WBC (Auto) < 1 Urine RBC (Auto) < 1 Urine Opiates Screen Negative Urine Methadone Screen Negative Ur Barbiturates Screen Negative Ur Phencyclidine Scrn Negative Ur Amphetamines Screen Negative U Benzodiazepines Scrn Negative U Oth Cocaine Metabols Negative U Cannabinoids Screen Positive H 01/29/18 01/30/18 01/30/18 22:54 00:08 01:02 WBC RBC Hgb Hct MCV MCH MCHC RDW Plt Count MPV Neut % (Auto) Lymph % (Auto) [place] % (Auto) Eos % (Auto) Baso % (Auto) Neut # (Auto) Lymph # (Auto) [place] # (Auto) Eos # (Auto) Baso # (Auto) Sodium Potassium Chloride Carbon Dioxide Anion Gap BUN Creatinine Est GFR ( Amer) Est GFR (Non-Af Amer) POC Glucose (mg/dL) 488 H* 336 H 257 H Random Glucose Calcium Phosphorus Magnesium Total Bilirubin AST ALT Alkaline Phosphatase Total Protein Albumin Globulin Albumin/Globulin Ratio Urine Color Urine Clarity Urine pH Ur Specific [place] Urine Protein Urine Glucose (UA) Urine Ketones Urine Blood Urine Nitrate Urine Bilirubin Urine Urobilinogen Ur Leukocyte Esterase Urine WBC (Auto) Urine RBC (Auto) Urine Opiates Screen Urine Methadone Screen Ur Barbiturates Screen Ur Phencyclidine Scrn Ur Amphetamines Screen U Benzodiazepines Scrn U Oth Cocaine Metabols U Cannabinoids Screen 01/30/18 01/30/18 01/30/18 01:58 03:16 03:56 WBC RBC Hgb Hct MCV MCH MCHC RDW Plt Count MPV Neut % (Auto) Lymph % (Auto) [place] % (Auto) Eos % (Auto) Baso % (Auto) Neut # (Auto) Lymph # (Auto) [place] # (Auto) Eos # (Auto) Baso # (Auto) Sodium Potassium Chloride Carbon Dioxide Anion Gap BUN Creatinine Est GFR ( Amer) Est GFR (Non-Af Amer) POC Glucose (mg/dL) 262 H 212 H 158 H Random Glucose Calcium Phosphorus Magnesium Total Bilirubin AST ALT Alkaline Phosphatase Total Protein Albumin Globulin Albumin/Globulin Ratio Urine Color Urine Clarity Urine pH Ur Specific [place] Urine Protein Urine Glucose (UA) Urine Ketones Urine Blood Urine Nitrate Urine Bilirubin Urine Urobilinogen Ur Leukocyte Esterase Urine WBC (Auto) Urine RBC (Auto) Urine Opiates Screen Urine Methadone Screen Ur Barbiturates Screen Ur Phencyclidine Scrn Ur Amphetamines Screen U Benzodiazepines Scrn U Oth Cocaine Metabols U Cannabinoids Screen 01/30/18 01/30/18 01/30/18 05:04 06:04 06:14 WBC RBC Hgb Hct MCV MCH MCHC RDW Plt Count MPV Neut % (Auto) Lymph % (Auto) [place] % (Auto) Eos % (Auto) Baso % (Auto) Neut # (Auto) Lymph # (Auto) [place] # (Auto) Eos # (Auto) Baso # (Auto) Sodium 142 Potassium 3.4 L Chloride 108 H Carbon Dioxide 24 Anion Gap 14 BUN 5 L Creatinine 0.6 L Est GFR ( Amer) > 60 Est GFR (Non-Af Amer) > 60 POC Glucose (mg/dL) 136 H 101 Random Glucose 128 H Calcium 8.0 L Phosphorus 2.7 Magnesium 2.1 Total Bilirubin 0.6 AST 24 ALT 42 Alkaline Phosphatase 78 Total Protein 6.2 L Albumin 3.6 Globulin 2.7 Albumin/Globulin Ratio 1.3 Urine Color Urine Clarity Urine pH Ur Specific [place] Urine Protein Urine Glucose (UA) Urine Ketones Urine Blood Urine Nitrate Urine Bilirubin Urine Urobilinogen Ur Leukocyte Esterase Urine WBC (Auto) Urine RBC (Auto) Urine Opiates Screen Urine Methadone Screen Ur Barbiturates Screen Ur Phencyclidine Scrn Ur Amphetamines Screen U Benzodiazepines Scrn U Oth Cocaine Metabols U Cannabinoids Screen 01/30/18 01/30/18 01/30/18 06:24 07:34 12:31 WBC 6.2 RBC 4.76 Hgb 13.8 D Hct 40.8 MCV 85.8 D MCH 29.0 MCHC 33.8 RDW 12.9 Plt Count 208 MPV 9.7 Neut % (Auto) 59.7 Lymph % (Auto) 29.0 [place] % (Auto) 9.4 Eos % (Auto) 1.4 Baso % (Auto) 0.5 Neut # (Auto) 3.7 Lymph # (Auto) 1.8 [place] # (Auto) 0.6 Eos # (Auto) 0.1 Baso # (Auto) 0.0 Sodium Potassium Chloride Carbon Dioxide Anion Gap BUN Creatinine Est GFR ( Amer) Est GFR (Non-Af Amer) POC Glucose (mg/dL) 114 H 347 H Random Glucose Calcium Phosphorus Magnesium Total Bilirubin AST ALT Alkaline Phosphatase Total Protein Albumin Globulin Albumin/Globulin Ratio Urine Color Urine Clarity Urine pH Ur Specific [place] Urine Protein Urine Glucose (UA) Urine Ketones Urine Blood Urine Nitrate Urine Bilirubin Urine Urobilinogen Ur Leukocyte Esterase Urine WBC (Auto) Urine RBC (Auto) Urine Opiates Screen Urine Methadone Screen Ur Barbiturates Screen Ur Phencyclidine Scrn Ur Amphetamines Screen U Benzodiazepines Scrn U Oth Cocaine Metabols U Cannabinoids Screen 01/30/18 15:44 WBC RBC Hgb Hct MCV MCH MCHC RDW Plt Count MPV Neut % (Auto) Lymph % (Auto) [place] % (Auto) Eos % (Auto) Baso % (Auto) Neut # (Auto) Lymph # (Auto) [place] # (Auto) Eos # (Auto) Baso # (Auto) Sodium Potassium Chloride Carbon Dioxide Anion Gap BUN Creatinine Est GFR ( Amer) Est GFR (Non-Af Amer) POC Glucose (mg/dL) 298 H Random Glucose Calcium Phosphorus Magnesium Total Bilirubin AST ALT Alkaline Phosphatase Total Protein Albumin Globulin Albumin/Globulin Ratio Urine Color Urine Clarity Urine pH Ur Specific [place] Urine Protein Urine Glucose (UA) Urine Ketones Urine Blood Urine Nitrate Urine Bilirubin Urine Urobilinogen Ur Leukocyte Esterase Urine WBC (Auto) Urine RBC (Auto) Urine Opiates Screen Urine Methadone Screen Ur Barbiturates Screen Ur Phencyclidine Scrn Ur Amphetamines Screen U Benzodiazepines Scrn U Oth Cocaine Metabols U Cannabinoids Screen EKG/Cardiology Studies: Cardiology / EKG Studies 01/30/18 08:00 EKG [ELECTROCARDIOGRAM] DAILY Comment: Mode Of Transportation: Reason For Exam: QTc prolongation Critical Care Progress Note - Nutrition Nutrition: Nutrition Category Date Time Status Consistent Carbohydrate [DIET] Diets 01/29/18 Dinner Active Attending/Attestation - Attestation I have personally seen and examined this patient.: Yes I have fully participated in the care of the patient.: Yes I have reviewed all pertinent clinical information: Yes Notes (Text): 01/30/18 17:46 Patient seen and examined in the intensive care unit. Stable for transfer to floor
[2018-01-30 11:04] VITALS: BP 104/74
[2018-01-30] MEDS: (Novolog) Insulin Aspart, Recombinant 100 u/ml 10 ml vial SC SCH ×2 (12:37→16:25)
[2018-01-30 14:05] VITALS: TEMP 97.2
[2018-01-30] MEDS ORDERED: Propofol 10 mg/ml Inj (20 ML) ONE (18:46)
--- NOTE | 2018-01-31 23:10 | CARD ---
APPROVED REPORT EKG Measurement Heart [id number] <Conclusion> Normal sinus rhythm T wave abnormality, consider inferolateral ischemia Abnormal ECG
== END 2018-01-30 17:00 | disposition left against medical advice (07) | DRG 295 ==
LOC: C.ER 09:40 → C.9I 11:02
PROVIDERS: ADMIT Internal Medicine; ATTEND Internal Medicine
DX: E10.10 Type 1 diabetes mellitus with ketoacidosis without coma (principal); F20.9 Schizophrenia, unspecified; K50.90 Crohn's disease, unspecified, without complications; B35.1 Tinea unguium; F17.200 Nicotine dependence, unspecified, uncomplicated; F31.9 Bipolar disorder, unspecified; F41.9 Anxiety disorder, unspecified; H54.8 Legal blindness, as defined in USA; I10 Essential (primary) hypertension; I45.81 Long QT syndrome; K29.70 Gastritis, unspecified, without bleeding; Z79.4 Long term (current) use of insulin; Z91.19 Patient's noncompliance with other medical treatment and regimen

== ENCOUNTER 2018-02-11 00:43 | Inpatient (IN) | payer MEDICAID ==
[2018-02-11 00:43] VITALS: BMI 16.7
[2018-02-11] MEDS ORDERED: Sodium Chloride 0.9% 1,000 ML IV ONE (01:07)
[2018-02-11] MEDS ORDERED: (Novolin R) Insulin Human Regular 100 units/ml vial IV ONE (01:08)
--- NOTE | 2018-02-11 01:09 | C.PDOC ---
History Of Present Illness 27 year old male with PMHx of DM, crohn's disease presents to the ED for evaluation of palpitations when walking. Patient reports that for the past 2 days while trying to walk he has been feeling palpitations. Patient also reports he vomited 2 times today and between 20-30 diarrhea episodes a day. Patient reports since he was diagnosed with diabetes at age 20 his blood sugar has been in the level of 200-300. Patient denies headache, nausea, CP, weakness , numbness. Time Seen by Provider: 02/11/18 00:46 Chief Complaint (Nursing): Shortness Of Breath History Per: Patient History/Exam Limitations: clinical condition Onset/Duration Of Symptoms: Days Current Symptoms Are (Timing): Still Present Initiating Event: Other Quality: Tightness Current Respiratory Medications: See Home Med List Severity: None Recent travel outside of the [place]: No Additional History Per: Patient Past Medical History Reviewed: Historical Data, Nursing Documentation, Vital Signs Vital Signs: Last Vital Signs Temp 98.2 F 02/11/18 04:30 Pulse 80 02/11/18 06:00 Resp 18 02/11/18 06:00 BP 104/62 02/11/18 05:52 Pulse Ox 99 02/11/18 06:00 - Medical History PMH: Anxiety, Bipolar Disorder, Crohn's Disease, Depression, Diabetes (Type 1), HTN, Schizophrenia Denies: HIV, Chronic Kidney Disease Surgical History: No Surg Hx - [facility] Procedures (07/21/17) (07/21/17) DRAINAGE OF ANUS, OPEN APPROACH (11/26/17) Family History: States: Unknown Family Hx - Social History Hx Tobacco Use: No Hx Alcohol Use: No Hx Substance Use: Yes (smokes marijuana occasionally for chronic pain) - Immunization History Hx Tetanus Toxoid Vaccination: Yes Hx Influenza Vaccination: Yes Hx Pneumococcal Vaccination: Yes Review Of Systems Constitutional: Negative for: Fever, Chills Cardiovascular: Positive for: Palpitations. Negative for: Chest Pain Respiratory: Positive for: Shortness of Breath. Negative for: Cough Gastrointestinal: Positive for: Vomiting. Negative for: Nausea, Abdominal Pain , Diarrhea Skin: Negative for: Rash Neurological: Negative for: Weakness, Numbness Physical Exam - Physical Exam Appears: Non-toxic, No Acute Distress Skin: Normal Color, Warm, Dry Head: Atraumatic, Normacephalic Eye(s): bilateral: Normal Inspection Oral Mucosa: Dry Neck: Normal ROM, Supple Chest: Symmetrical Cardiovascular: Rhythm Regular Respiratory: Normal Breath Sounds, No Rales, No Rhonchi, No Wheezing Gastrointestinal/Abdominal: Soft, Tenderness (right side due to crohn's disease) , No Guarding, No Rebound Extremity: Normal ROM, No Tenderness, No Swelling Neurological/Psych: Oriented x3, Normal Speech Gait: Steady ED Course And Treatment - Laboratory Results Result Diagrams: 02/11/18 01:29 02/11/18 01:29 O2 Sat by Pulse Oximetry: 100 (ON RA) Pulse Ox Interpretation: Normal Medical Decision Making Medical Decision Making: Impression: poorly controlled DM, dehydration Plan: * Labs * IV fluids * Insulin 6 units * Zofran 4 mg IVP * UA 01:53 - Patient is in DKA will wait for labs to come back and fluids then call ICU Disposition - Disposition Disposition: HOSPITALIZED Disposition Time: 06:56 Condition: FAIR - Clinical Impression Clinical Impression: Diabetes mellitus, Metabolic acidemia, DKA (diabetic ketoacidoses) - Scribe Statement The provider has reviewed the documentation as recorded by the Scribe Jelani Puentes All medical record entries made by the Scribe were at my direction and personally dictated by me. I have reviewed the chart and agree that the record accurately reflects my personal performance of the history, physical exam, medical decision making, and the department course for this patient. I have also personally directed, reviewed, and agree with the discharge instructions and disposition.
[2018-02-11 01:32] LABS: BASO # 0.1 K/uL (0.0-0.2); EOS # 0.1 K/uL (0.0-0.7); EOS % 1.3 % (0.0-4.0); HEMOGLOBIN 15.8 g/dL (12.0-18.0); LYMPH # 1.8 K/uL (1.0-4.3); LYMPH % 31.3 % (20.0-40.0); MEAN CELL VOLUME 87.1 fL (80.0-94.0); MEAN CORPUSCULAR HEMOGLOBIN 29.6 pg (27.0-31.0); MEAN CORPUSCULAR HGB CONC 33.9 g/dL (33.0-37.0); MEAN PLATELET VOLUME 9.2 fL (7.2-11.7); MONO # 0.5 K/uL (0.0-0.8); MONO % 9.5 % (0.0-10.0); NEUT # 3.3 K/uL (1.8-7.0); NEUT % 56.9 % (50.0-75.0); NRBC % 0.1 % (0.0-2.0); RBC 5.35 Mil/uL (4.40-5.90); RED CELL DISTRIBUTION WIDTH 13.2 % (11.5-14.5); WHITE BLOOD COUNT 5.8 K/uL (4.8-10.8)
[2018-02-11] MEDS ORDERED: Sodium Chloride 0.9% 1,000 ML ONE (01:40)
[2018-02-11] MEDS ORDERED: (Novolin R) Insulin Human Regular 100 units/ml vial ONE (01:40)
[2018-02-11 01:48] LABS: ALB/GLOB RATIO 1.5 (1.0-2.1); ALBUMIN 4.7 g/dL (3.5-5.0); ALT/SGPT 42 U/L (21-72); AST/SGOT 21 U/L (17-59); BLOOD UREA NITROGEN 11 mg/dL (9-20); CALCIUM 9.1 mg/dl (8.6-10.4); GFR AFRICAN-AMERICAN > 60; GFR NON-AFRICAN AMERICAN > 60; LIPASE 49 U/L (23-300)
[2018-02-11] MEDS ORDERED: Insulin Human Regular 100 UNIT in Sodium Chloride 0.9% 99 ML IV SCH (02:00)
[2018-02-11 02:22] LABS: ARTERIAL BLOOD GAS HCO3 11.6 mmol/L (21-28); ARTERIAL BLOOD GAS HEMOGLOBIN 14.1 g/dL (11.7-17.4); ARTERIAL BLOOD GAS O2 SAT 98.8 % (95-98); ARTERIAL BLOOD GAS PCO2 25 mm/Hg (35-45); ARTERIAL BLOOD GAS PH 7.19 (7.35-7.45); ARTERIAL BLOOD GAS PO2 113 mm/Hg (80-100); ARTERIAL BLOOD GAS TCO2 10.3 mmol/L (22-28)
--- NOTE | 2018-02-11 03:14 | CP.PCM.CON ---
History of Present Illness - History of Present Illness History of Present Illness: Attending: Dr Edwards PMD: Dr Weinberg GI: Dr Veloz Reason for Consult: Critical care Management Chief Complaint: Lightheadedness/SOB/Palpitation The patient was seen and examined in the ED HPI: 27 years old male with Hx of Crohn's Disease, Depression and IDDM with multiple admissions for DKA, comes with 2 days of lightheadedness, SOB, palpitations and vomiting twice today. He refers Chronic diarrhea with abdominal pain due to his Crohn's disease. No fever, Coughing, dysuria. PMH: Anxiety, Bipolar Disorder, Crohn's Disease, Depression, Diabetes (Type 1) , HTN, Schizophrenia; Diabetic Neuropathy; Cataract; Legally blind; PSH: Fractured Jaw surgery, Colonoscopy and endoscopy X2 SH: Former Smoker; No Alcohol; Uses Marijuana; live with family FH: State: No family hx of Crohn's disease Allergies: NKDA Medication: Reviewed Review of Systems - Constitutional Constitutional: absent: Chills, Fever, Headache - EENT Eyes: Requires Corrective Lenses. absent: Blurred Vision, Diplopia, Floaters, Sees Flashes Ears: absent: Decreased Hearing, Ear Discharge, Tinnitus Nose/Mouth/Throat: absent: Epistaxis, Nasal Congestion, Sinus Pain, Sinus Pressure - Cardiovascular Cardiovascular: Chest Pain, Dyspnea, Lightheadedness. absent: Leg Edema - Respiratory Respiratory: Dyspnea. absent: Cough, Chest Congestion - Gastrointestinal Gastrointestinal: Abdominal Pain, Diarrhea, Nausea, Vomiting - Genitourinary Genitourinary: absent: Dysuria, Flank Pain, Hematuria, Urinary Frequency - Musculoskeletal Musculoskeletal: absent: Arthralgias, Muscle Cramps, Myalgias - Integumentary Integumentary: absent: Pruritus, Rash, Skin Ulcer, Sores, Striae, Swelling - Neurological Neurological: Dizziness, Headaches, Weakness. absent: Confusion, Focal Weakness - Psychiatric Psychiatric: Anxiety, Depression - Endocrine Endocrine: Fatigue, Palpitations. absent: Polyuria - Hematologic/Lymphatic Hematologic: absent: Easy Bleeding, Easy Bruising Past Patient History - Infectious Disease Hx of Infectious Diseases: None - Past Medical History & Family History Past Medical History?: Yes - Past Social History Smoking Status: Current Some Days Smoker Chewing Tobacco Use: No Cigar Use: No Alcohol: None Drugs: Cannabis Home Situation {Lives}: With Family - CARDIAC Hx Hypertension: Yes - PULMONARY Hx Respiratory Disorders: No - NEUROLOGICAL Other/Comment: Neuropathy - HEENT Hx HEENT Problems: Yes 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) - RENAL Hx Chronic Kidney Disease: No - ENDOCRINE/METABOLIC Hx Endocrine Disorders: Yes Hx Diabetes Mellitus Type 1: Yes (insulin dependent) - HEMATOLOGICAL/ONCOLOGICAL Hx Human Immunodeficiency Virus (HIV): No - INTEGUMENTARY Hx Dermatological Problems: No - MUSCULOSKELETAL/RHEUMATOLOGICAL Hx Musculoskeletal Disorders: No Hx Falls: No - GASTROINTESTINAL Hx Crohn's Disease: Yes - GENITOURINARY/GYNECOLOGICAL Hx Genitourinary Disorders: No - PSYCHIATRIC Hx Anxiety: Yes Hx Bipolar Disorder: Yes Hx Depression: Yes Hx Schizophrenia: Yes Hx Substance Use: Yes (smokes marijuana occasionally for chronic pain) - SURGICAL HISTORY Hx Surgeries: Yes Other/Comment: wired Jaw - ANESTHESIA Hx Anesthesia: Yes Hx Anesthesia Reactions: No Hx Malignant Hyperthermia: No Meds Allergies/Adverse Reactions: Allergies Allergy/AdvReac Type Severity Reaction Status Date / Time No Known Allergies Allergy Verified 02/11/18 00:56 - Medications Medications: Current Medications Insulin Human Regular 100 unit (/ Sodium Chloride) 100 mls @ 2 mls/hr IV .Q24H JOHANA Physical Exam - Constitutional Appears: No Acute Distress - Head Exam Head Exam: ATRAUMATIC, NORMAL INSPECTION, NORMOCEPHALIC - Eye Exam Eye Exam: EOMI, Normal appearance Pupil Exam: NORMAL ACCOMODATION, PERRL - ENT Exam ENT Exam: Mucous Membranes Moist, Normal Exam - Neck Exam Neck exam: Positive for: Full Rom, Normal Inspection. Negative for: Lymphadenopathy, Tenderness - Respiratory Exam Respiratory Exam: Clear to Auscultation Bilateral. absent: Rales, Rhonchi, Wheezes - Cardiovascular Exam Cardiovascular Exam: REGULAR RHYTHM, RRR, +S1, +S2. absent: JVD, Rubs - GI/Abdominal Exam GI & Abdominal Exam: Normal Bowel Sounds, Soft. absent: Organomegaly, Pulsatile Mass, Tenderness - Rectal Exam Rectal Exam: Deferred - Extremities Exam Extremities exam: Positive for: normal inspection. Negative for: calf tenderness, full ROM, pedal edema - Back Exam Back exam: NORMAL INSPECTION. absent: CVA tenderness (R) - Neurological Exam Neurological exam: Alert, CN II-XII Intact, Oriented x3, Reflexes Normal - Psychiatric Exam Psychiatric exam: Normal Affect, Normal Mood - Skin Skin Exam: Dry, Intact, Normal Color, Warm Additional comments: multiple tatoo on upper extremities Results - Vital Signs Recent Vital Signs: Last Vital Signs Temp 97.7 F 02/11/18 00:51 Pulse 96 H 02/11/18 00:51 Resp 20 02/11/18 00:57 BP 98/69 L 02/11/18 00:51 Pulse Ox 100 02/11/18 01:54 - Labs Result Diagrams: 02/11/18 01:29 02/11/18 01:29 Labs: Laboratory Results - last 24 hr 02/11/18 02/11/18 02/11/18 00:49 01:29 01:29 WBC 5.8 RBC 5.35 Hgb 15.8 D Hct 46.6 MCV 87.1 MCH 29.6 MCHC 33.9 RDW 13.2 Plt Count 269 MPV 9.2 Neut % (Auto) 56.9 Lymph % (Auto) 31.3 [place] % (Auto) 9.5 Eos % (Auto) 1.3 Baso % (Auto) 1.0 Neut # (Auto) 3.3 Lymph # (Auto) 1.8 [place] # (Auto) 0.5 Eos # (Auto) 0.1 Baso # (Auto) 0.1 Puncture Site pCO2 pO2 HCO3 ABG pH ABG Total CO2 ABG O2 Saturation ABG Base Excess ABG Hemoglobin ABG Carboxyhemoglobin POC ABG HHb (Measured) ABG Methemoglobin [place] Test A-a O2 Difference Respiratory Index Hgb O2 Saturation Vent Mode FiO2 Crit Value Called To Crit Value Called By Crit Value Read Back Blood Gas Notified Time Sodium 133 Potassium 4.5 Chloride 95 L Carbon Dioxide 11 L* D Anion Gap 32 H BUN 11 Creatinine 0.8 Est GFR ( Amer) > 60 Est GFR (Non-Af Amer) > 60 POC Glucose (mg/dL) 394 H Random Glucose 419 H* D Calcium 9.1 Total Bilirubin 1.1 AST 21 ALT 42 Alkaline Phosphatase 103 Total Protein 8.0 Albumin 4.7 Globulin 3.3 Albumin/Globulin Ratio 1.5 Lipase 49 02/11/18 02/11/18 02:00 02:46 WBC RBC Hgb Hct MCV MCH MCHC RDW Plt Count MPV Neut % (Auto) Lymph % (Auto) [place] % (Auto) Eos % (Auto) Baso % (Auto) Neut # (Auto) Lymph # (Auto) [place] # (Auto) Eos # (Auto) Baso # (Auto) Puncture Site Rb pCO2 25 L pO2 113 H HCO3 11.6 L ABG pH 7.19 L* ABG Total CO2 10.3 L ABG O2 Saturation 98.8 H ABG Base Excess -17.0 L ABG Hemoglobin 14.1 ABG Carboxyhemoglobin 1.8 H POC ABG HHb (Measured) 1.2 ABG Methemoglobin 1.6 [place] Test Na A-a O2 Difference 5.0 Respiratory Index 0 Hgb O2 Saturation 95.4 Vent Mode Room air FiO2 21.0 Crit Value Called To Thomas johns/rn Crit Value Called By Omari gilmore/rt Crit Value Read Back Y Blood Gas Notified Time 225 Sodium Potassium Chloride Carbon Dioxide Anion Gap BUN Creatinine Est GFR ( Amer) Est GFR (Non-Af Amer) POC Glucose (mg/dL) > 500 H* Random Glucose Calcium Total Bilirubin AST ALT Alkaline Phosphatase Total Protein Albumin Globulin Albumin/Globulin Ratio Lipase Assessment & Plan - Assessment and Plan (Free Text) Assessment: #. DKA #. IDDM with Hyperglycemia #. Crohn's Disease Plan: 27 years old male with Hx of Crohn's Disease, Depression and IDDM with multiple admissions for DKA, comes with 2 days of lightheadedness, SOB, palpitations and vomiting twice today. He refers Chronic diarrhea with abdominal pain due to his Crohn's disease. No fever, Coughing, dysuria. #. DKA - IV Fluids one liter NS in ED - Continue with IV NS at 200mls/hr - IV Regular Insulin drip according to DKA protocol - Change IV to D5/NS when Blood Glucose is less than 250mg/dl and Anion Gap is elevated #. IDDM with Hyperglycemia due to non compliance or inadequate treatment - Diabetic Teaching #. Crohn's Disease - Continue Hoome medication #. Anxiety and Depression. - Continue Remeron #. Stress ulcer Prophylaxis with Pepcid DVT prophylaxis with Lovenox #. Code Status: Full - Date & Time Date: 02/11/18 Time: 03:14
[2018-02-11] MEDS ORDERED: Insulin Human Regular 100 UNIT in Sodium Chloride 0.9% 99 ML IV PRN (03:33)
[2018-02-11] MEDS: Sodium Chloride 0.9% 1,000 ML IV SCH ×2 (04:30→08:49)
[2018-02-11 07:00] LABS: BASO % 0.8 % (0.0-2.0); EOS # 0.1 K/uL (0.0-0.7); EOS % 1.9 % (0.0-4.0); HEMOGLOBIN 14.2 g/dL (12.0-18.0); LYMPH # 1.8 K/uL (1.0-4.3); LYMPH % 33.1 % (20.0-40.0); MEAN CELL VOLUME 86.6 fL (80.0-94.0); MEAN CORPUSCULAR HEMOGLOBIN 29.3 pg (27.0-31.0); MEAN CORPUSCULAR HGB CONC 33.8 g/dL (33.0-37.0); MEAN PLATELET VOLUME 9.1 fL (7.2-11.7); MONO # 0.3 K/uL (0.0-0.8); MONO % 5.9 % (0.0-10.0); NEUT # 3.2 K/uL (1.8-7.0); NEUT % 58.3 % (50.0-75.0); NRBC % 0.1 % (0.0-2.0); RBC 4.85 Mil/uL (4.40-5.90); RED CELL DISTRIBUTION WIDTH 13.3 % (11.5-14.5); WHITE BLOOD COUNT 5.5 K/uL (4.8-10.8)
[2018-02-11 07:02] LABS: URINE BILIRUBIN NEGATIVE (NEGATIVE); URINE BLOOD NEGATIVE (NEGATIVE); URINE CLARITY Clear (Clear); URINE COLOR Straw (YELLOW); URINE GLUCOSE (UA) 3+ mg/dL (Normal); URINE LEUKOCYTE ESTERASE NEG Leu/uL (Negative); URINE PROTEIN NEGATIVE (NEGATIVE); URINE UROBILINOGEN NORMAL mg/dL (0.2-1.0)
[2018-02-11 07:14] LABS: BLOOD UREA NITROGEN 10 mg/dL (9-20); CALCIUM 8.1 mg/dl (8.6-10.4); GFR AFRICAN-AMERICAN > 60; GFR NON-AFRICAN AMERICAN > 60
[2018-02-11] MEDS: Saccharomyces Boulardi 250 mg Cap PO SCH ×2 (09:24→18:01)
[2018-02-11] MEDS: Pantoprazole 40 mg EC Tab PO SCH (09:24)
[2018-02-11] MEDS: Enoxaparin 40 mg Syringe SC SCH (09:31)
[2018-02-11] MEDS: Potassium Chl 40 mEq in D5-1/2 1,000 ML IV SCH ×2 (09:45→16:50)
[2018-02-11] MEDS ORDERED: Dextrose 50% SYRINGE Inj (50 ml) IV STA (10:00)
[2018-02-11] MEDS ORDERED: Dextrose 50% SYRINGE Inj (50 ml) ONE (10:11)
[2018-02-11 11:55] LABS: BLOOD UREA NITROGEN 9 mg/dL (9-20); CALCIUM 8.3 mg/dl (8.6-10.4); GFR AFRICAN-AMERICAN > 60; GFR NON-AFRICAN AMERICAN > 60
[2018-02-11] MEDS ORDERED: Potassium Chloride 20 mEq/15 ml LIQ UD PO ONE (12:03)
[2018-02-11] MEDS ORDERED: (Novolin R) Insulin Human Regular 100 units/ml vial SC SCH (16:30)
[2018-02-11] MEDS: (Lantus) Insulin Glargine, Recombinant SC SCH (23:00)
[2018-02-11] MEDS: (Novolin R) Insulin Human Regular 100 units/ml vial SC SCH (23:00)
[2018-02-12 07:01] LABS: BLOOD UREA NITROGEN 4 mg/dL (9-20); CALCIUM 7.9 mg/dl (8.6-10.4); GFR AFRICAN-AMERICAN > 60; GFR NON-AFRICAN AMERICAN > 60
[2018-02-12] MEDS: (Novolin R) Insulin Human Regular 100 units/ml vial SC SCH ×4 (08:34→21:20)
[2018-02-12] MEDS: Saccharomyces Boulardi 250 mg Cap PO SCH ×2 (09:09→18:00)
[2018-02-12] MEDS: Pantoprazole 40 mg EC Tab PO SCH (09:09)
[2018-02-12] MEDS: Enoxaparin 40 mg Syringe SC SCH (09:09)
--- NOTE | 2018-02-12 12:11 | CP.PCM.PN ---
Subjective - Date & Time of Evaluation Date of Evaluation: 02/12/18 Time of Evaluation: 12:08 - Subjective Subjective: Internal Medicine Progress Note - Dr Edwards Service Patient seen and examined at bedside. Per nursing no acute events overnight. Patient resting, states that he is tired. He reports that he takes Lantus and Novolin at home and that he is complaint with his medications. States that he smokes marijuana for chronic pain. Denies headaches, dizziness, cp, palpitations , sob, cp, palpitations, abdominal pain, urinary symptoms. Objective - Vital Signs/Intake and Output Vital Signs (last 24 hours): Temp Pulse Resp BP Pulse Ox 98.6 F 84 16 102/78 98 02/12/18 08:00 02/12/18 08:00 02/12/18 08:00 02/12/18 08:00 02/12/18 08:00 Intake and Output: 02/12/18 02/12/18 06:59 18:59 Intake Total 730 Output Total 500 Balance 230 - Medications Medications: Current Medications Enoxaparin Sodium (Lovenox) 40 mg SC DAILY [facility] Last Admin: 02/12/18 09:09 Dose: 40 mg Potassium Chloride 40 meq/ (Sodium Chloride) 1,020 mls @ 100 mls/hr IV .[id number] [facility] Last Admin: 02/12/18 06:25 Dose: 100 mls/hr Insulin Glargine (Lantus) 7 unit SC [facility] Last Admin: 02/11/18 23:00 Dose: 7 u Insulin Human Regular (Novolin R) 0 unit SC [facility] PRN Reason: Protocol Last Admin: 02/12/18 08:34 Dose: 4 u Ketorolac Tromethamine (Toradol) 10 mg PO Q6H PRN PRN Reason: Pain, severe (8-10) Last Admin: 02/11/18 05:40 Dose: 10 mg Mirtazapine (Remeron) 30 mg PO [facility] Last Admin: 02/11/18 23:00 Dose: 30 mg Ondansetron HCl (Zofran Inj) 4 mg IVP Q4H PRN PRN Reason: Nausea/Vomiting Last Admin: 02/11/18 23:25 Dose: 4 mg Pantoprazole Sodium (Protonix Ec Tab) 40 mg PO DAILY [facility] Last Admin: 02/12/18 09:09 Dose: 40 mg Saccharomyces Boulardii (Florastor) 250 mg PO BID JOHANA Last Admin: 02/12/18 09:09 Dose: 250 mg - Labs Labs: 02/11/18 06:51 02/12/18 06:42 - Constitutional Appears: Non-toxic, No Acute Distress - Head Exam Head Exam: ATRAUMATIC, NORMAL INSPECTION, NORMOCEPHALIC - Eye Exam Eye Exam: EOMI, Normal appearance Pupil Exam: NORMAL ACCOMODATION - ENT Exam ENT Exam: Mucous Membranes Moist - Neck Exam Neck Exam: Full ROM - Respiratory Exam Respiratory Exam: Clear to Ausculation Bilateral - Cardiovascular Exam Cardiovascular Exam: REGULAR RHYTHM, +S1, +S2 - GI/Abdominal Exam GI & Abdominal Exam: Soft, Normal Bowel Sounds. absent: Guarding, Rigid, Tenderness - Extremities Exam Extremities Exam: Normal Inspection - Back Exam Back Exam: NORMAL INSPECTION - Neurological Exam Neurological Exam: Alert, Awake, Oriented x3 - Psychiatric Exam Psychiatric exam: Normal Affect, Normal Mood - Skin Skin Exam: Dry, Normal Color, Warm Assessment and Plan - Assessment and Plan (Free Text) Assessment: A/P: Patient is a 27 year old male with past medical history of Diabetes Mellitus, Crohns disease, multiple admissions for DKA, schizophrenia/bipolar disorder, HTN presents to the hospital for palpitations, intractable vomiting and diarrhea. Patient was found to be in DKA and was admitted to the ICU and started on Insulin drip. DKA, Uncontrolled Diabetes Mellitus (Type 1) -Stable, afebrile -DKA resolved at this time -Downgraded to Med/Surg -health promotion educator referral placed -Zofran prn nausea -Continue Lantus 8 units HS -Continue moderate Insulin sliding scale -Accuchecks ACHS Crohns Disease -Stable at this time GI/DVT ppx: Protonix 40mg PO daily Lovenox 40mg SC daily Plan discussed with Dr Grace Mendez DO PGY-2
[2018-02-12] MEDS: (Lantus) Insulin Glargine, Recombinant SC SCH (21:20)
[2018-02-12] MEDS: Oxycodone/Acetaminophen 5/325 mg Tab PO PRN (21:54)
[2018-02-13 06:37] LABS: BLOOD UREA NITROGEN 5 mg/dL (9-20); CALCIUM 8.8 mg/dl (8.6-10.4); GFR AFRICAN-AMERICAN > 60; GFR NON-AFRICAN AMERICAN > 60
[2018-02-13] MEDS ORDERED: (Novolin R) Insulin Human Regular 100 units/ml vial SC SCH ×2 (07:50→11:30)
[2018-02-13] MEDS: Oxycodone/Acetaminophen 5/325 mg Tab PO PRN (07:53)
[2018-02-13] MEDS: (Novolin R) Insulin Human Regular 100 units/ml vial SC SCH (07:54)
[2018-02-13 08:10] VITALS: BP 101/66; PULSE 80; O2SAT 99
--- NOTE | 2018-02-13 09:03 | CP.PCM.PN ---
Subjective - Date & Time of Evaluation Date of Evaluation: 02/13/18 Time of Evaluation: 09:03 - Subjective Subjective: Internal Medicine Progress Note - Dr Edwards Service Patient seen and examined at bedside. Per nursing no acute events overnight. Patient is doing well, offers no complaints at this time. Abdominal pain improved. Denies headaches, dizziness, cp, palpitations, sob, urinary symptoms, changes in bowel habits. Objective - Vital Signs/Intake and Output Vital Signs (last 24 hours): Temp Pulse Resp BP Pulse Ox 97.6 F 80 18 101/66 99 02/13/18 08:00 02/13/18 08:00 02/13/18 08:00 02/13/18 08:00 02/13/18 08:00 Intake and Output: 02/13/18 02/13/18 06:59 18:59 Intake Total 1920 100 Output Total 1200 Balance 720 100 - Medications Medications: Current Medications Enoxaparin Sodium (Lovenox) 40 mg SC DAILY [facility] Last Admin: 02/12/18 09:09 Dose: 40 mg Potassium Chloride 40 meq/ (Sodium Chloride) 1,020 mls @ 100 mls/hr IV .[id number] [facility] Last Admin: 02/13/18 02:10 Dose: 100 mls/hr Insulin Glargine (Lantus) 7 unit SC [facility] Last Admin: 02/12/18 21:20 Dose: 7 u Insulin Human Regular (Novolin R) 0 unit SC [facility] PRN Reason: Protocol Ketorolac Tromethamine (Toradol) 10 mg PO Q6H PRN PRN Reason: Pain, severe (8-10) Last Admin: 02/11/18 05:40 Dose: 10 mg Mirtazapine (Remeron) 30 mg PO [facility] Last Admin: 02/12/18 21:20 Dose: 30 mg Ondansetron HCl (Zofran Inj) 4 mg IVP Q4H PRN PRN Reason: Nausea/Vomiting Last Admin: 02/11/18 23:25 Dose: 4 mg Oxycodone/Acetaminophen (Percocet 5/325 Mg Tab) 1 tab PO Q4H PRN PRN Reason: Pain, severe (8-10) Stop: 02/15/18 20:01 Last Admin: 02/13/18 07:53 Dose: 1 tab Pantoprazole Sodium (Protonix Ec Tab) 40 mg PO DAILY [facility] Last Admin: 02/12/18 09:09 Dose: 40 mg Saccharomyces Boulardii (Florastor) 250 mg PO BID [facility] Last Admin: 02/12/18 18:00 Dose: Not Given - Labs Labs: 02/11/18 06:51 02/13/18 06:16 - Additional Findings Additional findings: - Constitutional Appears: Non-toxic, No Acute Distress - Head Exam Head Exam: ATRAUMATIC, NORMAL INSPECTION, NORMOCEPHALIC - Eye Exam Eye Exam: EOMI, Normal appearance Pupil Exam: NORMAL ACCOMODATION - ENT Exam ENT Exam: Mucous Membranes Moist - Neck Exam Neck Exam: Full ROM - Respiratory Exam Respiratory Exam: Clear to Ausculation Bilateral - Cardiovascular Exam Cardiovascular Exam: REGULAR RHYTHM, +S1, +S2 - GI/Abdominal Exam GI & Abdominal Exam: Soft, Normal Bowel Sounds. absent: Guarding, Rigid, Tenderness - Extremities Exam Extremities Exam: Normal Inspection - Back Exam Back Exam: NORMAL INSPECTION - Neurological Exam Neurological Exam: Alert, Awake, Oriented x3 - Psychiatric Exam Psychiatric exam: Normal Affect, Normal Mood - Skin Skin Exam: Dry, Normal Color, Warm Assessment and Plan - Assessment and Plan (Free Text) Assessment: A/P: Patient is a 27 year old male with past medical history of Diabetes Mellitus, Crohns disease, multiple admissions for DKA, schizophrenia/bipolar disorder, HTN presents to the hospital for palpitations, intractable vomiting and diarrhea. Patient was found to be in DKA and was admitted to the ICU and started on Insulin drip. DKA, Uncontrolled Diabetes Mellitus (Type 1) -Stable, afebrile -DKA resolved at this time -personal development educator referral placed -Zofran prn nausea -Continue Lantus 8 units HS -Continue Novolin 4 units AC -Continue moderate Insulin sliding scale -Accuchecks ACHS Crohns Disease -Stable at this time GI/DVT ppx: Protonix 40mg PO daily Lovenox 40mg SC daily Dispo: Patient is clear for discharge home. Patient to continue medications as prescribed and follow up with his PMD within 1 week. Plan discussed with Dr Grace Mendez DO PGY-2
--- NOTE | 2018-02-13 09:13 | HP ---
HISTORY OF PRESENT ILLNESS: A 27-year-old male with insulin-dependent diabetes, admitted to the hospital with a chief complaint of nausea, vomiting, weakness. Came to the ER from ____ DVT, advised admission. The patient presented . The patient smokes marijuana pain. PHYSICAL EXAMINATION: GENERAL: The patient is awake, alert and oriented. VITAL SIGNS: Temperature 98, pulse 90. HEENT: Within normal limits. NECK: Supple. CHEST: Symmetrical. HEART: Regular. ABDOMEN: Soft. EXTREMITIES: No edema. ASSESSMENT AND PLAN: Diabetic ketoacidosis. The patient is to get bed rest. Supportive care. Insulin drip. Glenis Edwards MD
[2018-02-13] MEDS: Saccharomyces Boulardi 250 mg Cap PO SCH (09:24)
[2018-02-13] MEDS: Pantoprazole 40 mg EC Tab PO SCH (09:25)
[2018-02-13] MEDS: Enoxaparin 40 mg Syringe SC SCH (09:25)
[2018-02-13 12:05] VITALS: RESP 20; TEMP 98.1
== END 2018-02-13 12:58 | disposition home or self-care (01) | DRG 295 ==
LOC: C.ER 00:43 → C.9I 02:45
PROVIDERS: ADMIT Internal Medicine Pulmonary Disease; ATTEND Internal Medicine Pulmonary Disease
DX: E10.10 Type 1 diabetes mellitus with ketoacidosis without coma (principal); E86.0 Dehydration; F20.9 Schizophrenia, unspecified; Z79.4 Long term (current) use of insulin; G89.29 Other chronic pain; H54.8 Legal blindness, as defined in USA; H91.90 Unspecified hearing loss, unspecified ear; I10 Essential (primary) hypertension; K50.90 Crohn's disease, unspecified, without complications; F17.219 Nicotine dependence, cigarettes, with unspecified nicotine-induced disorders; F12.90 Cannabis use, unspecified, uncomplicated; E10.40 Type 1 diabetes mellitus with diabetic neuropathy, unspecified

== ENCOUNTER 2018-02-23 03:40 | Emergency (ER) | payer MEDICAID ==
[2018-02-23 03:41] VITALS: BMI 16.7
--- NOTE | 2018-02-23 04:36 | C.PDOC ---
History Of Present Illness 27 year old male with PMHx of DM and crohn's disease presents to the ED c/o abdominal pain, hard josé miguel with hematochezia that he noticed today. Patient reports " my crohn's is acting up". Patient has been seen in the ED multiple times in the past for similar presentation. Patient state he only had 1 episode of hematochezia today. Patient denies fever, chills, nausea vomit, diarrhea, dysuria, back pain, weakness, numbness. Time Seen by Provider: 02/23/18 04:25 Chief Complaint (Nursing): Abdominal Pain History Per: Patient History/Exam Limitations: no limitations Onset/Duration Of Symptoms: Hrs Current Symptoms Are (Timing): Still Present Location Of Pain/Discomfort: Diffuse Radiation Of Pain To:: None Quality Of Discomfort: "Pain" Associated Symptoms: Other (hematochezia). denies: Nausea, Vomiting, Urinary Symptoms Alleviating Factors: None Last Bowel Movement: Today Recent travel outside of the [place]: No Additional History Per: Patient Past Medical History Reviewed: Historical Data, Nursing Documentation, Vital Signs Vital Signs: Last Vital Signs Temp 98.5 F 02/23/18 04:20 Pulse 81 02/23/18 04:20 Resp 20 02/23/18 04:20 BP 107/66 02/23/18 05:34 Pulse Ox 97 02/23/18 07:05 - Medical History PMH: Anxiety, Bipolar Disorder, Crohn's Disease, Depression, Diabetes (Type 1), HTN, Schizophrenia Denies: HIV, Chronic Kidney Disease Surgical History: No Surg Hx - [facility] Procedures (07/21/17) (07/21/17) DRAINAGE OF ANUS, OPEN APPROACH (11/26/17) Family History: States: Unknown Family Hx - Social History Hx Tobacco Use: No Hx Alcohol Use: No Hx Substance Use: Yes (smokes marijuana occasionally for chronic pain) - Immunization History Hx Tetanus Toxoid Vaccination: Yes Hx Influenza Vaccination: Yes Hx Pneumococcal Vaccination: Yes Review Of Systems Constitutional: Negative for: Fever, Chills Cardiovascular: Negative for: Chest Pain, Palpitations Respiratory: Negative for: Cough, Shortness of Breath Gastrointestinal: Positive for: Abdominal Pain, Hematochezia. Negative for: Nausea, Vomiting, Diarrhea Genitourinary: Negative for: Dysuria, Hematuria Musculoskeletal: Negative for: Back Pain Skin: Negative for: Rash Physical Exam - Physical Exam Appears: Non-toxic, Unkempt Skin: Normal Color, Warm, Dry Head: Atraumatic, Normacephalic Eye(s): bilateral: Normal Inspection Oral Mucosa: Moist Neck: Normal ROM, Supple Chest: Symmetrical Cardiovascular: Rhythm Regular Respiratory: Normal Breath Sounds, No Rales, No Rhonchi, No Wheezing Gastrointestinal/Abdominal: Soft, No Tenderness, No Guarding, No Rebound Extremity: Normal ROM, No Tenderness, No Swelling Neurological/Psych: Oriented x3, Normal Speech Gait: Steady ED Course And Treatment - Laboratory Results Result Diagrams: 02/23/18 05:04 02/23/18 05:04 O2 Sat by Pulse Oximetry: 97 (ON RA) Pulse Ox Interpretation: Normal Progress Note: Plan: - VBG. - Labs. - Morphine 2 mg IVP. - Insulin 6 units. - IV fluids. - UA. Pt with improved pain, now with Bs 406, Insulin IV ordered. Pt s/o to DAMION Barrientos pending repeat Accucheck and reeval. During examination patient is actively on his phone but also crying at the same time. Accucheck on arrivals was noted to be 433, insulin was given. Disposition - Disposition Disposition Time: 06:58 Condition: STABLE Forms: [facility] (Guamanian) - Clinical Impression Clinical Impression: Abdominal pain, Hyperglycemia - PA / CUSTOMER CARE TEAM COACH / Resident Statement MD/DO has reviewed & agrees with the documentation as recorded. - Scribe Statement The provider has reviewed the documentation as recorded by the Scribe Jelani Puentes All medical record entries made by the Scribe were at my direction and personally dictated by me. I have reviewed the chart and agree that the record accurately reflects my personal performance of the history, physical exam, medical decision making, and the department course for this patient. I have also personally directed, reviewed, and agree with the discharge instructions and disposition. Physician Patient Turnover Patient Signed Over To: Haydee Barrientos Handoff Comments: Pending UA and repeat accucheck
[2018-02-23] MEDS ORDERED: Sodium Chloride 0.9% 1,000 ML IV ONE (04:54)
[2018-02-23 05:07] LABS: BASO # 0.1 K/uL (0.0-0.2); EOS # 0.1 K/uL (0.0-0.7); EOS % 2.3 % (0.0-4.0); HEMOGLOBIN 13.5 g/dL (12.0-18.0); LYMPH # 1.6 K/uL (1.0-4.3); LYMPH % 24.4 % (20.0-40.0); MEAN CELL VOLUME 87.2 fL (80.0-94.0); MEAN CORPUSCULAR HEMOGLOBIN 28.9 pg (27.0-31.0); MEAN CORPUSCULAR HGB CONC 33.2 g/dL (33.0-37.0); MEAN PLATELET VOLUME 9.3 fL (7.2-11.7); MONO # 0.8 K/uL (0.0-0.8); MONO % 12.8 % (0.0-10.0); NEUT # 3.8 K/uL (1.8-7.0); NEUT % 59.5 % (50.0-75.0); RBC 4.68 Mil/uL (4.40-5.90); RED CELL DISTRIBUTION WIDTH 13.4 % (11.5-14.5); WHITE BLOOD COUNT 6.4 K/uL (4.8-10.8)
[2018-02-23 05:18] LABS: VENOUS BLOOD GAS BASE EXCESS -0.7 mmol/L (0.0-2.0); VENOUS BLOOD GAS PCO2 54 mmHg (40-60); VENOUS BLOOD GAS PO2 34 mm/Hg (30-55)
[2018-02-23 05:24] LABS: ALB/GLOB RATIO 1.5 (1.0-2.1); ALT/SGPT 39 U/L (21-72); AST/SGOT 36 U/L (17-59); BLOOD UREA NITROGEN 16 mg/dL (9-20); GFR AFRICAN-AMERICAN > 60; GFR NON-AFRICAN AMERICAN > 60; LIPASE 176 U/L (23-300)
[2018-02-23] MEDS ORDERED: (Novolin R) Insulin Human Regular 100 units/ml vial SC ONE (05:24)
[2018-02-23] MEDS ORDERED: (Novolin R) Insulin Human Regular 100 units/ml vial ONE ×2 (05:31→07:03)
[2018-02-23] MEDS ORDERED: (Novolin R) Insulin Human Regular 100 units/ml vial IV ONE (06:54)
[2018-02-23 10:51] VITALS: BP 100/68; PULSE 89; RESP 20; TEMP 98.2; O2SAT 100
== END 2018-02-23 10:50 | disposition home or self-care (01) ==
LOC: C.ER 03:40
DX: R10.9 Unspecified abdominal pain (principal); E11.65 Type 2 diabetes mellitus with hyperglycemia
CPT/HCPCS: 80053; 82803; 82948; 83690; 85025; 96361; 96374; 96375; 99285; J2270; J7030

== ENCOUNTER 2018-03-09 20:26 | Inpatient (IN) | payer MEDICAID ==
[2018-03-09 20:27] VITALS: BMI 16.7
--- NOTE | 2018-03-09 20:59 | C.PDOC ---
Time Seen by Provider: 03/09/18 20:59 Chief Complaint (Nursing): Dizziness/Lightheaded Past Medical History Vital Signs: Last Vital Signs Temp 98 F 03/09/18 20:43 Pulse 86 03/09/18 20:43 Resp 14 03/09/18 20:43 BP 113/74 03/09/18 20:43 Pulse Ox 96 03/09/18 20:43 - Medical History PMH: Anxiety, Bipolar Disorder, Crohn's Disease, Depression, Diabetes (Type 1), HTN, Schizophrenia Denies: HIV, Chronic Kidney Disease - [facility] (07/21/17) (07/21/17) DRAINAGE OF ANUS, OPEN APPROACH (11/26/17) Family History: States: Unknown Family Hx - Social History Hx Tobacco Use: No Hx Alcohol Use: No Hx Substance Use: Yes (smokes marijuana occasionally for chronic pain) - Immunization History Hx Tetanus Toxoid Vaccination: Yes Hx Influenza Vaccination: Yes Hx Pneumococcal Vaccination: Yes ED Course And Treatment O2 Sat by Pulse Oximetry: 96 Disposition Counseled Patient/Family Regarding: Studies Performed, Diagnosis - Disposition Disposition Time: 20:59
[2018-03-09] MEDS ORDERED: Sodium Chloride 0.9% 2,000 ML IV ONE (21:00)
--- NOTE | 2018-03-09 21:00 | C.PDOC ---
History Of Present Illness Patient presents with nausea, abdominal pain, watery diarrhea and feeling weak and dizzy. His blood sugar in the ED was greater than 500. States he is compliant with his insulin regimen Time Seen by Provider: 03/09/18 20:59 Chief Complaint (Nursing): Dizziness/Lightheaded History Per: Patient History/Exam Limitations: no limitations Onset/Duration Of Symptoms: Days Current Symptoms Are (Timing): Worse Severity: Severe Pain Scale Rating Of: 6 Reports Recently: Seen In ED, Treated By A Physician, Hospitalized Recent travel outside of the [place] States: No Additional History Per: Patient Past Medical History Reviewed: Historical Data, Nursing Documentation, Vital Signs Vital Signs: Last Vital Signs Temp 98.4 F 03/09/18 22:21 Pulse 84 03/09/18 22:21 Resp 18 03/09/18 22:21 BP 119/84 03/09/18 22:21 Pulse Ox 99 03/09/18 22:21 - Medical History PMH: Anxiety, Bipolar Disorder, Crohn's Disease, Depression, Diabetes (Type 1), HTN, Schizophrenia Denies: HIV, Chronic Kidney Disease - [facility] Procedures (07/21/17) (07/21/17) DRAINAGE OF ANUS, OPEN APPROACH (11/26/17) Family History: States: No Known Family Hx - Social History Hx Tobacco Use: No Hx Alcohol Use: No Hx Substance Use: Yes (smokes marijuana occasionally for chronic pain) - Immunization History Hx Tetanus Toxoid Vaccination: Yes Hx Influenza Vaccination: Yes Hx Pneumococcal Vaccination: Yes Review Of Systems Constitutional: Negative for: Fever, Chills ENT: Negative for: Throat Pain Cardiovascular: Negative for: Chest Pain Respiratory: Negative for: Shortness of Breath Gastrointestinal: Positive for: Nausea. Negative for: Abdominal Pain Genitourinary: Positive for: Other (polyuria). Negative for: Dysuria Musculoskeletal: Negative for: Back Pain Skin: Negative for: Rash Neurological: Negative for: Weakness Psych: Negative for: Anxiety Physical Exam - Physical Exam Appears: Non-toxic Skin: Warm, Dry Head: Normacephalic Oral Mucosa: Dry Lips: Other (dry) Teeth: Other (poor dentition) Neck: Supple Chest: Symmetrical Cardiovascular: Rhythm Regular Respiratory: No Rales, No Rhonchi, No Wheezing Gastrointestinal/Abdominal: Soft, No Tenderness, No Distention Back: Normal Inspection Extremity: Normal ROM Extremity: Bilateral: Atraumatic Pulses: Left Dorsalis Pedis: Normal, Right Dorsalis Pedis: Normal Neurological/Psych: Oriented x3, Normal Speech, Normal Cognition Gait: Steady ED Course And Treatment - Laboratory Results Result Diagrams: 03/09/18 21:12 03/09/18 21:12 O2 Sat by Pulse Oximetry: 96 Pulse Ox Interpretation: Normal Disposition Discussed With Dr.: Patrick Gomez Comment: accepted the pt on his servie and took over the care at 10:15 PM Doctor Will See Patient In The: Hospital Counseled Patient/Family Regarding: Studies Performed, Diagnosis - Disposition Disposition: HOSPITALIZED Disposition Time: 20:59 Condition: GUARDED Forms: [facility] ([place]) - POA Present On Arrival: Poor Glycemic Control - Clinical Impression Clinical Impression: Hyperglycemia, HHNC (hyperglycemic hyperosmolar nonketotic coma) Decision To Admit - Pt Status Changed To: Hospital Disposition Of: Inpatient - Admit Certification Admit to Inpatient:: After my assessment, the patient will require hospitalization for at least two midnights. This is because of the severity of symptoms shown, intensity of services needed, and/or the medical risk in this patient being treated as an outpatient. - InPatient: Physician Admission Certification: I certify that this patient requires 2 or more midnights of care for the following reason:: After my assessment, the patient will require hospitalization for at least two midnights. This is because of the severity of symptoms shown, intensity of services needed, and/or the medical risk in this patient being treated as an outpatient. - . Bed Request Type: Telemetry Admitting Physician: Patrick Gomez Patient Diagnosis: Hyperglycemia, HHNC (hyperglycemic hyperosmolar nonketotic coma)
[2018-03-09 21:21] LABS: ABG ALLEN TEST POS; ARTERIAL BLOOD GAS HCO3 20.4 mmol/L (21-28); ARTERIAL BLOOD GAS O2 SAT 54.1 % (95-98); ARTERIAL BLOOD GAS PCO2 52 mm/Hg (35-45); ARTERIAL BLOOD GAS PH 7.27 (7.35-7.45); ARTERIAL BLOOD GAS PO2 25 mm/Hg (80-100); ARTERIAL BLOOD GAS TCO2 25.5 mmol/L (22-28)
[2018-03-09 21:25] LABS: URINE BILIRUBIN NEGATIVE (NEGATIVE); URINE BLOOD NEGATIVE (NEGATIVE); URINE CLARITY Clear (Clear); URINE COLOR Colorless (YELLOW); URINE GLUCOSE (UA) 3+ mg/dL (Normal); URINE LEUKOCYTE ESTERASE NEG Leu/uL (Negative); URINE PROTEIN NEGATIVE (NEGATIVE); URINE UROBILINOGEN NORMAL mg/dL (0.2-1.0)
[2018-03-09 21:27] LABS: BASO # 0.1 K/uL (0.0-0.2); BASO % 1.2 % (0.0-2.0); EOS # 0.1 K/uL (0.0-0.7); EOS % 1.4 % (0.0-4.0); HEMOGLOBIN 15.7 g/dL (12.0-18.0); LYMPH # 1.3 K/uL (1.0-4.3); LYMPH % 22.1 % (20.0-40.0); MEAN CORPUSCULAR HEMOGLOBIN 30.1 pg (27.0-31.0); MEAN CORPUSCULAR HGB CONC 31.8 g/dL (33.0-37.0); MEAN PLATELET VOLUME 10.4 fL (7.2-11.7); MONO # 0.5 K/uL (0.0-0.8); NEUT # 3.8 K/uL (1.8-7.0); NEUT % 66.3 % (50.0-75.0); NRBC % 0.1 % (0.0-2.0); RBC 5.23 Mil/uL (4.40-5.90); RED CELL DISTRIBUTION WIDTH 14.3 % (11.5-14.5); WHITE BLOOD COUNT 5.7 K/uL (4.8-10.8)
[2018-03-09 21:28] LABS: MEAN CELL VOLUME 94.6 fL (80.0-94.0)
[2018-03-09 21:37] LABS: ALB/GLOB RATIO 1.6 (1.0-2.1); ALBUMIN 4.9 g/dL (3.5-5.0); ALT/SGPT 72 U/L (21-72); AST/SGOT 68 U/L (17-59); BLOOD UREA NITROGEN 17 mg/dL (9-20); CALCIUM 9.6 mg/dl (8.6-10.4); GFR AFRICAN-AMERICAN > 60; GFR NON-AFRICAN AMERICAN > 60; LIPASE 133 U/L (23-300)
[2018-03-09] MEDS ORDERED: (Novolin R) Insulin Human Regular 100 units/ml vial IV STA (21:53)
[2018-03-09] MEDS ORDERED: Oxycodone/Acetaminophen 5/325 mg Tab PO PRN (22:16)
[2018-03-09] MEDS ORDERED: (Novolin R) Insulin Human Regular 100 units/ml vial ONE (22:17)
[2018-03-09] MEDS: Sodium Chloride 0.9% 1,000 ML IV SCH (22:54)
[2018-03-09] MEDS ORDERED: Sodium Chloride 0.9% 1,000 ML IV ONE (23:32)
[2018-03-10 01:29] LABS: BLOOD UREA NITROGEN 14 mg/dL (9-20); CALCIUM 7.1 mg/dl (8.6-10.4); GFR AFRICAN-AMERICAN > 60; GFR NON-AFRICAN AMERICAN > 60
[2018-03-10] MEDS ORDERED: Potassium Chloride 20 mEq ER Tab PO STA (01:34)
[2018-03-10] MEDS ORDERED: (Novolin R) Insulin Human Regular 100 units/ml vial SC ONE (02:37)
[2018-03-10] MEDS: Sodium Chloride 0.9% 1,000 ML IV SCH (05:50)
[2018-03-10] MEDS ORDERED: (Novolin R) Insulin Human Regular 100 units/ml vial SC SCH (07:30)
[2018-03-10] MEDS ORDERED: Iohexol 240 (50 ml) PO ONE (07:30)
--- NOTE | 2018-03-10 07:52 | CP.PCM.HP ---
History of Present Illness - History of Present Illness History of Present Illness: 27 y/o male with Chron's disease and IDDM??. Patient has watery diarrhea, cramps. Also noted freq, polyuria and felt very weak. He went to ER & admitted Present on Admission - Present on Admission Any Indicators Present on Admission: Yes History of DVT/PE: No History of Uncontrolled Diabetes: No Review of Systems - Review of Systems Systems not reviewed;Unavailable: Acuity of Condition - Constitutional Constitutional: Daytime Sleepiness, Headache. absent: Excessive Sweating, Snoring - EENT Eyes: absent: Decreased Night Vision, Exophthalmos, Itchy Eyes, Pain Nose/Mouth/Throat: Nasal Congestion. absent: Nasal Trauma, Bleeding Gums - Cardiovascular Cardiovascular: Lightheadedness. absent: Chest Pain, Chest Pain at Rest, Irregular Heart Rhythm, Orthopnea - Respiratory Respiratory: Cough. absent: Hemoptysis, Dyspnea on Exertion, Chest Congestion - Gastrointestinal Gastrointestinal: Abdominal Pain, Bloating, Nausea. absent: Coffee Ground Emesis, Dysphagia, Heartburn, Vomiting - Genitourinary Genitourinary: absent: Difficulty Urinating, Dysuria, Urinary Urgency - Musculoskeletal Musculoskeletal: absent: Abnormal Gait, Back Pain, Muscle Weakness, Myalgias - Neurological Neurological: absent: Abnormal Gait, Dizziness, Numbness, Lack of Coordination 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) - RENAL Hx Chronic Kidney Disease: No - ENDOCRINE/METABOLIC Hx Endocrine Disorders: Yes Hx Diabetes Mellitus Type 1: Yes (insulin dependent) - HEMATOLOGICAL/ONCOLOGICAL Hx Human Immunodeficiency Virus (HIV): No - INTEGUMENTARY Hx Dermatological Problems: No - MUSCULOSKELETAL/RHEUMATOLOGICAL Hx Falls: No - GASTROINTESTINAL Hx Crohn's Disease: Yes - GENITOURINARY/GYNECOLOGICAL Hx Genitourinary Disorders: No - PSYCHIATRIC Hx Substance Use: No - SURGICAL HISTORY Hx Surgeries: Yes Other/Comment: wired Jaw - ANESTHESIA Hx Anesthesia: Yes Hx Anesthesia Reactions: No Hx Malignant Hyperthermia: No Meds Allergies/Adverse Reactions: Allergies Allergy/AdvReac Type Severity Reaction Status Date / Time No Known Allergies Allergy Verified 03/09/18 20:46 Physical Exam - Constitutional Appears: Well - Eye Exam Eye Exam: Periorbital tenderness - ENT Exam ENT Exam: Mucous Membranes Moist - Neck Exam Neck exam: Negative for: Full Rom, Lymphadenopathy, Normal Inspection, Thyromegaly - Respiratory Exam Respiratory Exam: Clear to Auscultation Bilateral. absent: Rales, Rhonchi, Wheezes - Cardiovascular Exam Cardiovascular Exam: REGULAR RHYTHM, +S2. absent: Gallop, JVD, +S1 - GI/Abdominal Exam GI & Abdominal Exam: Soft. absent: Tenderness - Extremities Exam Extremities exam: Positive for: full ROM. Negative for: joint swelling, normal capillary refill Results - Vital Signs Recent Vital Signs: Last Vital Signs Temp 97.4 F L 03/09/18 23:50 Pulse 67 03/10/18 03:25 Resp 20 03/09/18 23:50 BP 114/76 03/09/18 23:50 Pulse Ox 97 03/09/18 23:50 - Labs Result Diagrams: 03/09/18 21:12 03/09/18 23:07 Labs: Laboratory Results - last 24 hr 03/09/18 03/09/18 03/09/18 20:42 21:12 21:12 WBC 5.7 RBC 5.23 Hgb 15.7 D Hct 49.5 MCV 94.6 H D MCH 30.1 MCHC 31.8 L RDW 14.3 Plt Count 230 MPV 10.4 Neut % (Auto) 66.3 Lymph % (Auto) 22.1 [place] % (Auto) 9.0 Eos % (Auto) 1.4 Baso % (Auto) 1.2 Neut # (Auto) 3.8 Lymph # (Auto) 1.3 [place] # (Auto) 0.5 Eos # (Auto) 0.1 Baso # (Auto) 0.1 Puncture Site pCO2 pO2 HCO3 ABG pH ABG Total CO2 ABG O2 Saturation ABG Base Excess [place] Test ABG Potassium A-a O2 Difference Respiratory Index Glucose Lactate FiO2 Crit Value Called To Crit Value Called By Crit Value Read Back Blood Gas Notified Time Sodium Potassium Chloride Carbon Dioxide Anion Gap BUN Creatinine Est GFR ( Amer) Est GFR (Non-Af Amer) POC Glucose (mg/dL) > 500 H* Random Glucose Calcium Total Bilirubin AST ALT Alkaline Phosphatase Total Protein Albumin Globulin Albumin/Globulin Ratio Lipase Arterial Blood Potassium Urine Color Colorless Urine Clarity Clear Urine pH 6.0 Ur Specific [place] 1.025 Urine Protein Negative Urine Glucose (UA) 3+ H Urine Ketones Trace Urine Blood Negative Urine Nitrate Negative Urine Bilirubin Negative Urine Urobilinogen Normal Ur Leukocyte Esterase Neg Urine WBC (Auto) < 1 Urine RBC (Auto) < 1 B-Hydroxybutyrate 03/09/18 03/09/18 03/09/18 21:12 21:16 23:07 WBC RBC Hgb Hct MCV MCH MCHC RDW Plt Count MPV Neut % (Auto) Lymph % (Auto) [place] % (Auto) Eos % (Auto) Baso % (Auto) Neut # (Auto) Lymph # (Auto) [place] # (Auto) Eos # (Auto) Baso # (Auto) Puncture Site Lb pCO2 52 H pO2 25 L* HCO3 20.4 L ABG pH 7.27 L ABG Total CO2 25.5 ABG O2 Saturation 54.1 L ABG Base Excess -3.6 L [place] Test Pos ABG Potassium 4.8 A-a O2 Difference 60.0 Respiratory Index 2.4 Glucose 717 H* D Lactate 3.7 H FiO2 21.0 Crit Value Called To griselda Shaw Crit Value Called By Laura oliva Crit Value Read Back Y Blood Gas Notified Time 2120 Sodium 123 L 128.0 L Potassium 5.2 Chloride 82 L 86.0 L Carbon Dioxide 22 Anion Gap 24 H BUN 17 Creatinine 0.9 Est GFR ( Amer) > 60 Est GFR (Non-Af Amer) > 60 POC Glucose (mg/dL) Random Glucose 1319 H* Calcium 9.6 Total Bilirubin 1.0 AST 68 H D ALT 72 D Alkaline Phosphatase 218 H D Total Protein 7.9 Albumin 4.9 Globulin 3.0 Albumin/Globulin Ratio 1.6 Lipase 133 Arterial Blood Potassium 4.8 Urine Color Urine Clarity Urine pH Ur Specific [place] Urine Protein Urine Glucose (UA) Urine Ketones Urine Blood Urine Nitrate Urine Bilirubin Urine Urobilinogen Ur Leukocyte Esterase Urine WBC (Auto) Urine RBC (Auto) B-Hydroxybutyrate 0.49 H 03/09/18 03/10/18 03/10/18 23:07 02:29 06:09 WBC RBC Hgb Hct MCV MCH MCHC RDW Plt Count MPV Neut % (Auto) Lymph % (Auto) [place] % (Auto) Eos % (Auto) Baso % (Auto) Neut # (Auto) Lymph # (Auto) [place] # (Auto) Eos # (Auto) Baso # (Auto) Puncture Site pCO2 pO2 HCO3 ABG pH ABG Total CO2 ABG O2 Saturation ABG Base Excess [place] Test ABG Potassium A-a O2 Difference Respiratory Index Glucose Lactate FiO2 Crit Value Called To Crit Value Called By Crit Value Read Back Blood Gas Notified Time Sodium 135 Potassium 3.3 L Chloride 104 Carbon Dioxide 15 L Anion Gap 19 BUN 14 Creatinine 0.6 L Est GFR ( Amer) > 60 Est GFR (Non-Af Amer) > 60 POC Glucose (mg/dL) > 500 H* 350 H Random Glucose 872 H* D Calcium 7.1 L Total Bilirubin AST ALT Alkaline Phosphatase Total Protein Albumin Globulin Albumin/Globulin Ratio Lipase Arterial Blood Potassium Urine Color Urine Clarity Urine pH Ur Specific [place] Urine Protein Urine Glucose (UA) Urine Ketones Urine Blood Urine Nitrate Urine Bilirubin Urine Urobilinogen Ur Leukocyte Esterase Urine WBC (Auto) Urine RBC (Auto) B-Hydroxybutyrate 0.49 H Assessment & Plan - Assessment and Plan (Free Text) Assessment: Unc IDDM w/ early DKA Hypokalemia Cont IVF ; incorporate K Endo & GI eval On insulin
[2018-03-10 08:01] LABS: BLOOD UREA NITROGEN 9 mg/dL (9-20); CALCIUM 7.8 mg/dl (8.6-10.4); GFR AFRICAN-AMERICAN > 60; GFR NON-AFRICAN AMERICAN > 60
[2018-03-10] MEDS: Potassium Chl 20 mEq in NS 1,000 ML IV SCH ×3 (08:40→22:36)
[2018-03-10] MEDS ORDERED: (Novolog Mix 70/30) Insulin Aspart/Insulin Aspar 100 units/ml SC SCH (09:00)
--- NOTE | 2018-03-10 11:45 | CP.PCM.CON ---
History of Present Illness - History of Present Illness History of Present Illness: This is a 27 year old man with a history of Crohn's disease admitted with uncontrolled diabetes. Patient has been diagnosed with a psychiatric disorder, referred to as both schizophrenia and bipolar disorder in the old chart, and also has a history of poly-substance abuse. He states that he was diagnosed with Crohn's disease seven years ago but has never been treated. He has been [place] Veloz [place] [facility] On previous admissions to , he has been evaluated by Dr. Veloz, Dr. Troy and Dr. Duran. The last CT scan was performed on 11/27/17 and showed distention of the stomach, multiple loops of with mural thickening, and a 2.5 cm perianal abscess. The last endoscopic procedure was EGD on 07/20/2018 which showed reflux esophagitis, non-erosive gastritis, and duodenal ulcer. He presented to the ER with complains of nausea, abdominal pain, watery diarrhea , weakness and dizziness. Blood sugar in the ER was 1319, and he was admitted. He refused repeat CT scan today. At present, he denies having abdominal pain. He had nausea and vomiting yesterday, but not since admission. He denies having difficulty swallowing, heartburn or loss of appetite. He has lost six or eight pounds in the past year. He has frequent watery bowel movements, up to 20 times a day, including four or five at night. He has had incontinence of stool, especially at night. He sees blood in the diarrhea several times a week. Review of Systems - Review of Systems All systems: reviewed and no additional remarkable complaints except - Constitutional Constitutional: Headache, Weight Loss - EENT Nose/Mouth/Throat: Nasal Congestion - Cardiovascular Cardiovascular: Lightheadedness. absent: Chest Pain - Respiratory Respiratory: Cough. absent: Dyspnea, Hemoptysis - Gastrointestinal Gastrointestinal: Abdominal Pain, Diarrhea, Fecal Incontinence, Hematochezia, Nausea, Vomiting. 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) - RENAL Hx Chronic Kidney Disease: No - ENDOCRINE/METABOLIC Hx Endocrine Disorders: Yes Hx Diabetes Mellitus Type 1: Yes (insulin dependent) - HEMATOLOGICAL/ONCOLOGICAL Hx Human Immunodeficiency Virus (HIV): No - INTEGUMENTARY Hx Dermatological Problems: No - MUSCULOSKELETAL/RHEUMATOLOGICAL Hx Falls: No - GASTROINTESTINAL Hx Crohn's Disease: Yes - GENITOURINARY/GYNECOLOGICAL Hx Genitourinary Disorders: No - PSYCHIATRIC Hx Substance Use: No - SURGICAL HISTORY Hx Surgeries: Yes Other/Comment: wired Jaw - ANESTHESIA Hx Anesthesia: Yes Hx Anesthesia Reactions: No Hx Malignant Hyperthermia: No Meds Allergies/Adverse Reactions: Allergies Allergy/AdvReac Type Severity Reaction Status Date / Time No Known Allergies Allergy Verified 03/09/18 20:46 - Medications Medications: Current Medications Potassium Chloride/Sodium Chloride (Potassium Chl 20 Meq In Ns) 1,000 mls @ 150 mls/hr IV .[id number] JOHANA Stop: 03/11/18 08:16 Last Admin: 03/10/18 08:40 Dose: 150 mls/hr Insulin Aspart (Novolog) 12 unit SC AC JOHANA Insulin Aspart (Novolog) 0 unit SC ACHS JOHANA Insulin Glargine (Lantus) 30 unit SC HS JOHANA Physical Exam - Constitutional Appears: No Acute Distress - Head Exam Head Exam: ATRAUMATIC, NORMOCEPHALIC - Eye Exam Eye Exam: EOMI, PERRL - Neck Exam Neck exam: Negative for: Lymphadenopathy, Thyromegaly - Respiratory Exam Respiratory Exam: NORMAL BREATHING PATTERN. absent: Rales, Rhonchi, Wheezes - Cardiovascular Exam Cardiovascular Exam: REGULAR RHYTHM, +S1, +S2. absent: Gallop, Rubs, Systolic Murmur - GI/Abdominal Exam GI & Abdominal Exam: Mass, Normal Bowel Sounds, Soft. absent: Organomegaly, Tenderness Additional comments: RLQ mass, 6 cm, nontender - Rectal Exam Rectal Exam: Deferred - Extremities Exam Extremities exam: Negative for: calf tenderness, pedal edema Results - Vital Signs Recent Vital Signs: Last Vital Signs Temp 97.6 F 03/10/18 07:00 Pulse 70 03/10/18 07:40 Resp 20 03/10/18 07:00 BP 111/76 03/10/18 07:00 Pulse Ox 99 03/10/18 07:00 - Labs Result Diagrams: 03/09/18 21:12 03/10/18 06:55 Labs: Laboratory Results - last 24 hr 03/09/18 03/09/18 03/09/18 20:42 21:12 21:12 WBC 5.7 RBC 5.23 Hgb 15.7 D Hct 49.5 MCV 94.6 H D MCH 30.1 MCHC 31.8 L RDW 14.3 Plt Count 230 MPV 10.4 Neut % (Auto) 66.3 Lymph % (Auto) 22.1 [place] % (Auto) 9.0 Eos % (Auto) 1.4 Baso % (Auto) 1.2 Neut # (Auto) 3.8 Lymph # (Auto) 1.3 [place] # (Auto) 0.5 Eos # (Auto) 0.1 Baso # (Auto) 0.1 Puncture Site pCO2 pO2 HCO3 ABG pH ABG Total CO2 ABG O2 Saturation ABG Base Excess [place] Test ABG Potassium A-a O2 Difference Respiratory Index Glucose Lactate FiO2 Crit Value Called To Crit Value Called By Crit Value Read Back Blood Gas Notified Time Sodium Potassium Chloride Carbon Dioxide Anion Gap BUN Creatinine Est GFR ( Amer) Est GFR (Non-Af Amer) POC Glucose (mg/dL) > 500 H* Random Glucose Calcium Total Bilirubin AST ALT Alkaline Phosphatase Total Protein Albumin Globulin Albumin/Globulin Ratio Lipase Arterial Blood Potassium Urine Color Colorless Urine Clarity Clear Urine pH 6.0 Ur Specific [place] 1.025 Urine Protein Negative Urine Glucose (UA) 3+ H Urine Ketones Trace Urine Blood Negative Urine Nitrate Negative Urine Bilirubin Negative Urine Urobilinogen Normal Ur Leukocyte Esterase Neg Urine WBC (Auto) < 1 Urine RBC (Auto) < 1 B-Hydroxybutyrate 03/09/18 03/09/18 03/09/18 21:12 21:16 23:07 WBC RBC Hgb Hct MCV MCH MCHC RDW Plt Count MPV Neut % (Auto) Lymph % (Auto) [place] % (Auto) Eos % (Auto) Baso % (Auto) Neut # (Auto) Lymph # (Auto) [place] # (Auto) Eos # (Auto) Baso # (Auto) Puncture Site Lb pCO2 52 H pO2 25 L* HCO3 20.4 L ABG pH 7.27 L ABG Total CO2 25.5 ABG O2 Saturation 54.1 L ABG Base Excess -3.6 L [place] Test Pos ABG Potassium 4.8 A-a O2 Difference 60.0 Respiratory Index 2.4 Glucose 717 H* D Lactate 3.7 H FiO2 21.0 Crit Value Called To griselda Shaw Crit Value Called By Laura oliva Crit Value Read Back Y Blood Gas Notified Time 2120 Sodium 123 L 128.0 L Potassium 5.2 Chloride 82 L 86.0 L Carbon Dioxide 22 Anion Gap 24 H BUN 17 Creatinine 0.9 Est GFR ( Amer) > 60 Est GFR (Non-Af Amer) > 60 POC Glucose (mg/dL) Random Glucose 1319 H* Calcium 9.6 Total Bilirubin 1.0 AST 68 H D ALT 72 D Alkaline Phosphatase 218 H D Total Protein 7.9 Albumin 4.9 Globulin 3.0 Albumin/Globulin Ratio 1.6 Lipase 133 Arterial Blood Potassium 4.8 Urine Color Urine Clarity Urine pH Ur Specific [place] Urine Protein Urine Glucose (UA) Urine Ketones Urine Blood Urine Nitrate Urine Bilirubin Urine Urobilinogen Ur Leukocyte Esterase Urine WBC (Auto) Urine RBC (Auto) B-Hydroxybutyrate 0.49 H 03/09/18 03/10/18 03/10/18 23:07 02:29 06:09 WBC RBC Hgb Hct MCV MCH MCHC RDW Plt Count MPV Neut % (Auto) Lymph % (Auto) [place] % (Auto) Eos % (Auto) Baso % (Auto) Neut # (Auto) Lymph # (Auto) [place] # (Auto) Eos # (Auto) Baso # (Auto) Puncture Site pCO2 pO2 HCO3 ABG pH ABG Total CO2 ABG O2 Saturation ABG Base Excess [place] Test ABG Potassium A-a O2 Difference Respiratory Index Glucose Lactate FiO2 Crit Value Called To Crit Value Called By Crit Value Read Back Blood Gas Notified Time Sodium 135 Potassium 3.3 L Chloride 104 Carbon Dioxide 15 L Anion Gap 19 BUN 14 Creatinine 0.6 L Est GFR ( Amer) > 60 Est GFR (Non-Af Amer) > 60 POC Glucose (mg/dL) > 500 H* 350 H Random Glucose 872 H* D Calcium 7.1 L Total Bilirubin AST ALT Alkaline Phosphatase Total Protein Albumin Globulin Albumin/Globulin Ratio Lipase Arterial Blood Potassium Urine Color Urine Clarity Urine pH Ur Specific [place] Urine Protein Urine Glucose (UA) Urine Ketones Urine Blood Urine Nitrate Urine Bilirubin Urine Urobilinogen Ur Leukocyte Esterase Urine WBC (Auto) Urine RBC (Auto) B-Hydroxybutyrate 0.49 H 03/10/18 06:55 WBC RBC Hgb Hct MCV MCH MCHC RDW Plt Count MPV Neut % (Auto) Lymph % (Auto) [place] % (Auto) Eos % (Auto) Baso % (Auto) Neut # (Auto) Lymph # (Auto) [place] # (Auto) Eos # (Auto) Baso # (Auto) Puncture Site pCO2 pO2 HCO3 ABG pH ABG Total CO2 ABG O2 Saturation ABG Base Excess [place] Test ABG Potassium A-a O2 Difference Respiratory Index Glucose Lactate FiO2 Crit Value Called To Crit Value Called By Crit Value Read Back Blood Gas Notified Time Sodium 139 Potassium 3.8 Chloride 106 Carbon Dioxide 18 L Anion Gap 18 BUN 9 Creatinine 0.5 L Est GFR ( Amer) > 60 Est GFR (Non-Af Amer) > 60 POC Glucose (mg/dL) Random Glucose 346 H Calcium 7.8 L Total Bilirubin AST ALT Alkaline Phosphatase Total Protein Albumin Globulin Albumin/Globulin Ratio Lipase Arterial Blood Potassium Urine Color Urine Clarity Urine pH Ur Specific [place] Urine Protein Urine Glucose (UA) Urine Ketones Urine Blood Urine Nitrate Urine Bilirubin Urine Urobilinogen Ur Leukocyte Esterase Urine WBC (Auto) Urine RBC (Auto) B-Hydroxybutyrate Assessment & Plan (1) Crohn disease Assessment and Plan: Patient has a history of Crohn's disease with unclear documentation. While he had nausea, vomiting, and abdominal pain on presentation to the ER, these symptoms have resolved. He continues to have diarrhea. He has a palpable RLQ mass, possible phlegmon vs.abscess. Will request stool cultures, fecal calprotectin, CRP, IBD panel. Consider CT scan if patient consents. Will request [place] [facility] Status: Acute
[2018-03-10] MEDS: (Novolog) Insulin Aspart, Recombinant 100 u/ml 10 ml vial SC SCH ×5 (12:00→22:37)
[2018-03-10] MEDS ORDERED: (Lantus) Insulin Glargine, Recombinant SC SCH (22:00)
--- NOTE | 2018-03-10 22:18 | CON ---
DATE: 03/10/2018 ENDOCRINOLOGY CONSULT ROOM 651 HISTORY OF PRESENT ILLNESS: This is a 27-year-old male with known history of type 1 insulin-dependent diabetes presenting here with intractable, loose, watery diarrhea with known history of Crohn's disease and is now being referred for diabetic evaluation and management. PAST MEDICAL HISTORY: As mentioned above. History of type 1 insulin-dependent diabetes, on a combination of Lantus given as 20 units at bedtime with Humalog given at a variable dose of 10 to 20 units with meals, history of hypertension and dyslipidemia, history of diabetic retinopathy and currently legally blind at this time with diabetic polyneuropathy, history of Crohn's disease and has had multiple admissions for exacerbations of the same. FAMILY HISTORY: Positive for diabetes and hypertension. SOCIAL HISTORY: The patient has supportive family. No known substance use. REVIEW OF SYSTEMS: Admits generalized body weakness with severe bouts of dizziness and lightheadedness and bifrontal headaches as noted and worse on the day of admission. Also admits to increasing hypersomnolence and lethargy and generalized body weakness as noted. No chest pains or palpitations, but admits to progressive shortness of breath, especially on exertion. His oral intake is variable with nausea, dyspepsia, and diffuse abdominal pain with supervening intractable, loose, watery diarrhea. Also admits to marked polyuria, nocturia, and polydipsia with lower extremity paresthesias. PHYSICAL EXAMINATION: GENERAL: male in no apparent distress. VITAL SIGNS: Blood pressure of 130/80, pulse of 100 beats per minute and regular, temperature 98, respirations 20, height is 5 feet 7 inches, weight is 100 pounds. HEENT: Head is normocephalic. Eyes are anicteric with pink conjunctivae. Funduscopy not possible at this time. Ears, nose, and throat otherwise normal. NECK: Supple. Thyroid gland is normal in size. No carotid bruits or any cervical adenopathy. CARDIOPULMONARY: Some adynamic precordium. S1 and S2 are rapid and regular. LUNGS: Clear to auscultation. ABDOMEN: Flat and soft with positive bowel sounds. EXTREMITIES: No peripheral edema, pulses are +2 bilaterally. LABORATORY DATA: His chemistry showed a BUN of 17, sodium 123, potassium 5.2, chloride 82, CO2 of 22, glucose 1319 mg/dL, creatinine 0.9. His subsequent glucoses are extremely elevated with glucose levels over 500 to 872 mg/dL. ASSESSMENT: This is a 27-year-old male with uncontrolled and decompensated type 1 insulin-dependent diabetes presenting here with intractable, loose, watery diarrhea with significant background history of Crohn's disease and also now biochemically has hyperosmolar, hyperglycemic state with mild ketosis as noted. There is also evidence of prerenal azotemia with dehydration and hyponatremia. He also has diabetic microvascular complications of retinopathy and currently legally blind with polyneuropathy as noted. PLAN: Plan of management as discussed with the patient and staff, we will start him right away on vigorous IV hydration and we will continue the normal saline infusion at least at 150 mL/hour today and overnight. We will also switch him over to a more physiologic basal and bolus insulin drug combination with Lantus to be given as 30 units subcu at bedtime daily to start tonight. We will also add NovoLog given as 12 units subcu t.i.d. before meals to start today at lunch time as ordered. We will obtain serial chemistries and supplement accordingly as needed. We will also modify the coverage scale to obviate hypoglycemia and detailed orders have been given for glucose levels only above 300 mg/dL. We will initiate diabetic educations and diabetic instructions also at the time of this admission. We will obtain serial chemistries and supplement accordingly as needed. We will follow. Kayce Kaplan MD
[2018-03-11] MEDS: Potassium Chl 20 mEq in NS 1,000 ML IV SCH (05:25)
[2018-03-11 07:16] LABS: BASO # 0.1 K/uL (0.0-0.2); BASO % 1.1 % (0.0-2.0); EOS # 0.2 K/uL (0.0-0.7); EOS % 4.1 % (0.0-4.0); LYMPH % 40.3 % (20.0-40.0); MEAN CORPUSCULAR HEMOGLOBIN 29.3 pg (27.0-31.0); MEAN CORPUSCULAR HGB CONC 33.8 g/dL (33.0-37.0); MEAN PLATELET VOLUME 9.7 fL (7.2-11.7); MONO # 0.4 K/uL (0.0-0.8); MONO % 7.7 % (0.0-10.0); NEUT # 2.3 K/uL (1.8-7.0); NEUT % 46.8 % (50.0-75.0); RBC 4.26 Mil/uL (4.40-5.90); RED CELL DISTRIBUTION WIDTH 13.8 % (11.5-14.5)
[2018-03-11 07:32] LABS: HEMOGLOBIN 12.5 g/dL (12.0-18.0); MEAN CELL VOLUME 86.6 fL (80.0-94.0)
[2018-03-11 07:43] LABS: ALB/GLOB RATIO 1.1 (1.0-2.1); ALT/SGPT 42 U/L (21-72); AST/SGOT 23 U/L (17-59); BLOOD UREA NITROGEN 6 mg/dL (9-20); GFR AFRICAN-AMERICAN > 60; GFR NON-AFRICAN AMERICAN > 60; HDL CHOLESTEROL 47 mg/dL (30-70)
[2018-03-11] MEDS: (Novolog) Insulin Aspart, Recombinant 100 u/ml 10 ml vial SC SCH ×10 (08:00→21:28)
[2018-03-11 08:01] LABS: LDL CHOLESTEROL 50 mg/dL (0-129)
--- NOTE | 2018-03-11 09:29 | CP.PCM.PN ---
Subjective - Date & Time of Evaluation Date of Evaluation: 03/11/18 Time of Evaluation: 09:26 - Subjective Subjective: Patient states that he had 14 loose bowel movements since yesterday. He requested pain medication for an episode of lower abdominal pain. He denies having nausea and vomiting. He denies having rectal bleeding. Objective - Vital Signs/Intake and Output Vital Signs (last 24 hours): Temp Pulse Resp BP Pulse Ox 97.6 F 65 20 104/68 98 03/11/18 07:10 03/11/18 07:40 03/11/18 07:10 03/11/18 07:10 03/11/18 07:10 Intake and Output: 03/11/18 03/11/18 06:59 18:59 Intake Total 1440 Balance 1440 - Medications Medications: Current Medications Insulin Aspart (Novolog) 12 unit SC AC [facility] Last Admin: 03/10/18 18:28 Dose: 12 u Insulin Aspart (Novolog) 0 unit SC ACHS [facility] Last Admin: 03/10/18 22:37 Dose: Not Given Insulin Glargine (Lantus) 30 unit SC HS [facility] Last Admin: 03/10/18 22:36 Dose: 30 unit - Labs Labs: 03/11/18 07:04 03/11/18 07:04 - Constitutional Appears: No Acute Distress - Head Exam Head Exam: ATRAUMATIC, NORMOCEPHALIC - Neck Exam Neck Exam: absent: Lymphadenopathy, Thyromegaly - Respiratory Exam Respiratory Exam: NORMAL BREATHING PATTERN. absent: Rales, Rhonchi, Wheezes - Cardiovascular Exam Cardiovascular Exam: REGULAR RHYTHM, +S1, +S2. absent: Gallop, Rubs, Murmur - GI/Abdominal Exam GI & Abdominal Exam: Soft, Mass, Normal Bowel Sounds. absent: Tenderness, Organomegaly - Rectal Exam Rectal Exam: Deferred - Extremities Exam Extremities Exam: absent: Calf Tenderness, Pedal Edema Assessment and Plan (1) Crohn disease Assessment & Plan: Patient continues to have diarrhea. The CRP is <5. Stool leukocytes are negative and occult blood is positive. Will check records from [facility] [place]. Consider repeat CT scan when patient consents. Status: Acute
[2018-03-11] MEDS ORDERED: (Lantus) Insulin Glargine, Recombinant SC SCH (22:00)
--- NOTE | 2018-03-11 23:40 | PN ---
DATE: 03/11/2018 ENDO FOLLOWUP NOTE LOCATION: Room 651. SUBJECTIVE: This is a 27-year-old male with recent uncontrolled type 1 insulin-dependent diabetes, presenting here with marked hyperglycemic accelerations with some supervening hyperosmolar hyperglycemic state and dehydration and is now improving clinically and metabolically as noted thereof. His oral intake is variable but is improving also as noted. His glycemic levels are fluctuating but much improved as noted overnight. LABORATORY DATA: His latest chemistry shows a BUN of 6, sodium 140, potassium 3.9, chloride 107, CO2 of 25, glucose 78, and creatinine 0.5. His hemoglobin A1c is extremely elevated at 16.4% which is quite extreme impairment of his unfavorable or poor outpatient metabolic control with his diabetic condition, especially in light of him being a type 1 diabetic. ASSESSMENT: This is a 27-year-old male with uncontrolled type 1 insulin-dependent diabetes with hyperosmolar hyperglycemic state and dehydration with extremes of glycemic fluctuations as noted there of. PLAN OF MANAGEMENT: I discussed with the patient in length at bedside with hypermetabolic control . I discussed imperatively for initiation of insulin pump for outpatient diabetic management to really optimize his metabolic control. The patient has agreed, and we will call his insurance company to hopefully approve the use of insulin pump as an outpatient. In the meantime, we will continue the modified basal and bolus insulin regimen as ordered and increase the NovoLog to 12 units subcu as given. We will also increase his Lantus to 30 units subcu at bedtime daily to start tonight. We will modify the coverage scale to obviate hypoglycemia, and detailed orders have been given. We will continue the IV hydration and obtain serial chemistries and supplement accordingly as needed. We will follow. Kayce Kaplan MD
[2018-03-12 07:46] LABS: ALB/GLOB RATIO 1.5 (1.0-2.1); ALBUMIN 3.8 g/dL (3.5-5.0); ALT/SGPT 46 U/L (21-72); AST/SGOT 43 U/L (17-59); BLOOD UREA NITROGEN 12 mg/dL (9-20); CALCIUM 9.1 mg/dl (8.6-10.4); GFR AFRICAN-AMERICAN > 60; GFR NON-AFRICAN AMERICAN > 60
[2018-03-12] MEDS: (Novolog) Insulin Aspart, Recombinant 100 u/ml 10 ml vial SC SCH ×4 (07:57→11:40)
[2018-03-12 08:11] LABS: BARBITURATES, UR NEGATIVE (NEGATIVE); BENZODIAZEPINES, UR NEGATIVE (NEGATIVE); OPIATES, UR NEGATIVE (NEGATIVE); PHENCYCLIDINE, UR NEGATIVE (NEGATIVE)
[2018-03-12 08:21] VITALS: BP 110/72; RESP 18; TEMP 97.8; O2SAT 97
--- NOTE | 2018-03-12 09:27 | CP.PCM.PN ---
Subjective - Date & Time of Evaluation Date of Evaluation: 03/12/18 Time of Evaluation: 08:12 - Subjective Subjective: Pt (+) diarrhea but watery and no blood; Still refuse CT c/o had a lot in the past include colonoscopy No CP, no SOB, no edema Objective - Vital Signs/Intake and Output Vital Signs (last 24 hours): Temp Pulse Resp BP Pulse Ox 97.8 F 61 18 110/72 97 03/12/18 07:10 03/12/18 07:10 03/12/18 07:10 03/12/18 07:10 03/12/18 07:10 Intake and Output: 03/12/18 03/12/18 06:59 18:59 Intake Total 640 Balance 640 - Medications Medications: Current Medications Acetaminophen (Tylenol 325mg Tab) 650 mg PO Q6 PRN PRN Reason: Pain, Mild (1-3) Insulin Aspart (Novolog) 12 unit SC AC [facility] Last Admin: 03/12/18 07:57 Dose: Not Given Insulin Aspart (Novolog) 0 unit SC ACHS [facility] Last Admin: 03/12/18 07:57 Dose: Not Given Insulin Glargine (Lantus) 24 unit SC HS [facility] Last Admin: 03/11/18 21:29 Dose: 24 units Tramadol HCl (Ultram) 50 mg PO Q6 PRN PRN Reason: Pain, moderate (4-7) Last Admin: 03/11/18 20:37 Dose: 50 mg - Labs Labs: 03/11/18 07:04 03/12/18 07:10 - Constitutional Appears: No Acute Distress - Eye Exam Eye Exam: Normal appearance - ENT Exam ENT Exam: Mucous Membranes Moist - Respiratory Exam Respiratory Exam: Clear to Ausculation Bilateral. absent: Rales, Rhonchi, Wheezes - Cardiovascular Exam Cardiovascular Exam: REGULAR RHYTHM, +S1, +S2. absent: JVD, Murmur - GI/Abdominal Exam GI & Abdominal Exam: Soft, Tenderness, Hyperactive Bowel Sounds - Extremities Exam Extremities Exam: Full ROM, Joint Swelling, Normal Capillary Refill. absent: Calf Tenderness Assessment and Plan - Assessment and Plan (Free Text) Assessment: Unc IDDM; Inflammatory bowel dis Subs use dis Discuss need to be on long acting Insulin but has on Humulog?? Advise subs use - only smile
[2018-03-12 10:11] VITALS: PULSE 63
--- NOTE | 2018-03-13 08:05 | PN ---
DATE: 03/12/2018 ENDO FOLLOWUP NOTE LOCATION: In room 651. SUBJECTIVE: insulin-dependent diabetes, presenting here with hyperosmolar hyperglycemic state and marked hyperglycemic acceleration. Since then improved clinically and metabolically as noted thereof. He received vigorous IV hydration and intensive insulin therapy is given. His latest glucose levels have ranged from 79 to 120 mg/dL. However, it was 415 at bedtime last night was given. His chemistries today showed a BUN of 12, sodium 138, potassium 4.2, chloride 100, CO2 of 29, glucose 65, and creatinine 0.5. His hemoglobin A1c was reported as 16.4% metabolic control of his diabetic condition. ASSESSMENT AND PLAN: So at this time, we will highly recommend the initiation of insulin pump for outpatient diabetic management, and we will contact pump company regarding the aforementioned. In the meantime, we will modify his basal and bolus insulin regimen and lower the Lantus to 20 units subcu at bedtime daily to start tonight. We will also lower his t.i.d. before meals as ordered. We will obtain serial chemistries and supplement accordingly as needed. We will follow. Kayce Kaplan MD
--- NOTE | 2018-03-13 14:46 | CARD ---
APPROVED REPORT Date of service: 03/09/2018 EKG Measurement Heart [id number] <Conclusion> Normal sinus rhythm T wave abnormality, consider anterolateral ischemia Abnormal ECG
== END 2018-03-12 12:37 | disposition home or self-care (01) | DRG 295 ==
LOC: C.ER 20:26 → C.9E 22:31 → C.6T 23:10
PROVIDERS: ADMIT Internal Medicine; ATTEND Internal Medicine
DX: E10.11 Type 1 diabetes mellitus with ketoacidosis with coma (principal); E86.0 Dehydration; F20.9 Schizophrenia, unspecified; E10.319 Type 1 diabetes mellitus with unspecified diabetic retinopathy without macular edema; E87.1 Hypo-osmolality and hyponatremia; E87.6 Hypokalemia; E10.42 Type 1 diabetes mellitus with diabetic polyneuropathy; E78.5 Hyperlipidemia, unspecified; H54.8 Legal blindness, as defined in USA; H91.90 Unspecified hearing loss, unspecified ear; I10 Essential (primary) hypertension; K29.70 Gastritis, unspecified, without bleeding; Z79.4 Long term (current) use of insulin; K50.90 Crohn's disease, unspecified, without complications; E10.65 Type 1 diabetes mellitus with hyperglycemia

== ENCOUNTER 2018-03-24 19:58 | Inpatient (IN) | payer MEDICAID ==
[2018-03-24 19:58] VITALS: BMI 16.7
[2018-03-24] MEDS ORDERED: Sodium Chloride 0.9% 1,000 ML IV ONE ×2 (20:17→21:07)
[2018-03-24 20:38] LABS: BASO # 0.1 K/uL (0.0-0.2); BASO % 1.2 % (0.0-2.0); EOS # 0.1 K/uL (0.0-0.7); EOS % 1.2 % (0.0-4.0); HEMOGLOBIN 15.8 g/dL (12.0-18.0); LYMPH # 1.2 K/uL (1.0-4.3); LYMPH % 24.6 % (20.0-40.0); MEAN CORPUSCULAR HEMOGLOBIN 29.3 pg (27.0-31.0); MEAN CORPUSCULAR HGB CONC 32.3 g/dL (33.0-37.0); MEAN PLATELET VOLUME 9.7 fL (7.2-11.7); MONO # 0.5 K/uL (0.0-0.8); NEUT # 3.2 K/uL (1.8-7.0); NRBC % 0.3 % (0.0-2.0); RBC 5.39 Mil/uL (4.40-5.90); RED CELL DISTRIBUTION WIDTH 14.5 % (11.5-14.5); WHITE BLOOD COUNT 5.1 K/uL (4.8-10.8)
[2018-03-24 20:50] LABS: VENOUS BLOOD GAS BASE EXCESS -6.2 mmol/L (0.0-2.0); VENOUS BLOOD GAS PCO2 45 mmHg (40-60); VENOUS BLOOD GAS PO2 37 mm/Hg (30-55); VENOUS BLOOD PH 7.27 (7.32-7.43)
[2018-03-24 21:00] LABS: ALB/GLOB RATIO 1.8 (1.0-2.1); ALBUMIN 5.2 g/dL (3.5-5.0); ALT/SGPT 54 U/L (21-72); AST/SGOT 20 U/L (17-59); BLOOD UREA NITROGEN 16 mg/dL (9-20); CALCIUM 9.6 mg/dl (8.6-10.4); GFR AFRICAN-AMERICAN > 60; GFR NON-AFRICAN AMERICAN > 60
[2018-03-24] MEDS ORDERED: (Novolin R) Insulin Human Regular 100 units/ml vial IV STA (21:05)
[2018-03-24 21:18] LABS: URINE BILIRUBIN NEGATIVE (NEGATIVE); URINE BLOOD NEGATIVE (NEGATIVE); URINE CLARITY Clear (Clear); URINE COLOR Colorless (YELLOW); URINE GLUCOSE (UA) 3+ mg/dL (Normal); URINE LEUKOCYTE ESTERASE NEG Leu/uL (Negative); URINE PROTEIN NEGATIVE (NEGATIVE); URINE UROBILINOGEN NORMAL mg/dL (0.2-1.0)
--- NOTE | 2018-03-24 21:33 | C.PDOC ---
Time Seen by Provider: 03/24/18 20:02 Chief Complaint (Nursing): High Blood Sugar History Per: Patient Onset/Duration Of Symptoms: Days Current Symptoms Are (Timing): Worse Severity: Severe Current Diabetic Medications: Insulin Treatment Prior To Provider Evaluation: Accucheck Additional History Per: Prior Records Past Medical History Reviewed: Historical Data, Nursing Documentation, Vital Signs Vital Signs: Last Vital Signs Temp 98.3 F 03/24/18 20:03 Pulse 86 03/24/18 20:03 Resp 18 03/24/18 20:18 BP 129/85 03/24/18 20:03 Pulse Ox 86 L 03/24/18 20:03 - Medical History PMH: Anxiety, Bipolar Disorder, Crohn's Disease, Depression, Diabetes (Type 1), HTN, Schizophrenia - [facility] Procedures (07/21/17) (07/21/17) DRAINAGE OF ANUS, OPEN APPROACH (11/26/17) Family History: States: Unknown Family Hx - Social History Hx Tobacco Use: No Hx Alcohol Use: No Hx Substance Use: No - Immunization History Hx Tetanus Toxoid Vaccination: Yes Hx Influenza Vaccination: Yes Hx Pneumococcal Vaccination: Yes Review Of Systems Except As Marked, All Systems Reviewed And Found Negative. Constitutional: Positive for: Weakness, Malaise. Negative for: Fever Cardiovascular: Negative for: Chest Pain Respiratory: Negative for: Hemoptysis Gastrointestinal: Negative for: Vomiting Genitourinary: Negative for: Dysuria Musculoskeletal: Negative for: Neck Pain Neurological: Negative for: Weakness, Seizures Physical Exam - Physical Exam Appears: Chronically Ill Skin: Normal Color, Warm, Dry Head: Atraumatic, Normacephalic Eye(s): bilateral: PERRL, EOMI Oral Mucosa: Dry Neck: Normal ROM, Supple Cardiovascular: Rhythm Regular Respiratory: Normal Breath Sounds, No Accessory Muscle Use Gastrointestinal/Abdominal: Soft Back: No CVA Tenderness Extremity: Normal ROM Neurological/Psych: Oriented x3, Normal Motor, Normal Sensation ED Course And Treatment - Laboratory Results Result Diagrams: 03/24/18 20:35 03/24/18 20:35 Lab Interpretation: Abnormal Interpretation Of Abnormal: Hyperglycemia. Elevated ketones. Mild acidosis. ECG: Interpreted By Me, Viewed By Me ECG Rhythm: Sinus Rhythm, Nonspecific Changes Rate From EC O2 Sat by Pulse Oximetry: 99 Pulse Ox Interpretation: Normal - Radiology CXR: Interpreted by Me, Viewed By Me CXR Interpretation: Yes: No Acute Disease Progress Note: Pt d/w Dr. Cornejo who accepted pt to ICU. - Physician Consult Information Physician Contacted: Patrick Gomez Outcome Of Conversation: He wants pt admitted on on-call physician's service. Progress - Interventions Interventions:: Observation, Intravenous fluid - Medications Administered Intravenous: Other (Insulin) - Data Reviewed Data Reviewed: Lab, Diagnostic imaging, EKG, Old records - Patient Status Patient status: Partially improved - Critical Care Citical Care: Excluding Proc Time Critical Care Time: 45 minutes - Continuity of Care Discussed patient case with:: Patient, ED Nurse, Covering for PMD, On-call PMD- pt unassigned Discussed pt. case with enterprise resource planning consultant/specialty: Pulmonary/Crit. Care - Patient Plan Patient Plan: Admission, ICU Disposition Discussed With : Roshan Loving (On-call) Comment: He accepted pt on his service. Doctor Will See Patient In The: Hospital Counseled Patient/Family Regarding: Studies Performed, Diagnosis - Disposition Disposition: HOSPITALIZED Disposition Time: 21:37 Condition: SERIOUS - Clinical Impression Clinical Impression: DKA (diabetic ketoacidoses), Hyperglycemia
[2018-03-24] MEDS ORDERED: (Novolin R) Insulin Human Regular 100 units/ml vial ONE (21:38)
[2018-03-24] MEDS: Insulin Human Regular 100 UNIT in Sodium Chloride 0.9% 99 ML IV SCH (21:56)
--- NOTE | 2018-03-24 22:45 | CP.PCM.CON ---
History of Present Illness - History of Present Illness History of Present Illness: chief complaint:" blurring of vision and lightheadedness This is a 27 year old male with PMHx OF IDDM on insulin, Crohn's Disease, Bipolar and Depression who presents with Lightheadedness and blurring of vision started this evening, associated with dryness of mouth. Patient reports he is compliant with his medications. Patient denies nausea, chest discomfort, SOB, abdominal pain. Denied fever, chills, headache, v/d/c, or urinary symptoms. PMD: Dr. Barnett PMHx: type 1 DM, Crohn's, bipolar, depression PSHx: endoscopy x2, colonoscopy x2 Meds: Family Hx: no familiy history of IBD/GI cancer SHx: smokers marijuana and cocaine, but denies etoh Review of Systems - Review of Systems All systems: reviewed and no additional remarkable complaints except (dryness of mouth, lightheadedness) 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) - RENAL Hx Chronic Kidney Disease: No - ENDOCRINE/METABOLIC Hx Endocrine Disorders: Yes Hx Diabetes Mellitus Type 1: Yes (insulin dependent) - HEMATOLOGICAL/ONCOLOGICAL Hx Human Immunodeficiency Virus (HIV): No - INTEGUMENTARY Hx Dermatological Problems: No - MUSCULOSKELETAL/RHEUMATOLOGICAL Hx Falls: No - GASTROINTESTINAL Hx Crohn's Disease: Yes - GENITOURINARY/GYNECOLOGICAL Hx Genitourinary Disorders: No - PSYCHIATRIC Hx Anxiety: Yes Hx Bipolar Disorder: Yes Hx Depression: Yes Hx Schizophrenia: Yes Hx Substance Use: No - SURGICAL HISTORY Hx Surgeries: Yes Other/Comment: wired Jaw - ANESTHESIA Hx Anesthesia: Yes Hx Anesthesia Reactions: No Hx Malignant Hyperthermia: No Meds Allergies/Adverse Reactions: Allergies Allergy/AdvReac Type Severity Reaction Status Date / Time No Known Allergies Allergy Verified 03/09/18 20:46 - Medications Medications: Current Medications Insulin Human Regular 100 unit (/ Sodium Chloride) 100 mls @ 2 mls/hr IV .Q24H [facility] PRN Reason: Protocol Last Admin: 03/24/18 21:56 Dose: 8 mls/hr Physical Exam - Head Exam Head Exam: ATRAUMATIC, NORMOCEPHALIC - ENT Exam ENT Exam: Mucous Membranes Moist - Neck Exam Neck exam: Positive for: Normal Inspection - Respiratory Exam Respiratory Exam: Clear to Auscultation Bilateral - Cardiovascular Exam Cardiovascular Exam: REGULAR RHYTHM - GI/Abdominal Exam GI & Abdominal Exam: Normal Bowel Sounds, Soft - Extremities Exam Extremities exam: Positive for: normal inspection - Neurological Exam Neurological exam: Alert, Oriented x3 Results - Vital Signs Recent Vital Signs: Last Vital Signs Temp 98.3 F 03/24/18 20:03 Pulse 86 03/24/18 20:03 Resp 18 03/24/18 20:18 BP 129/85 03/24/18 20:03 Pulse Ox 99 03/24/18 21:37 - Labs Result Diagrams: 03/24/18 20:35 03/24/18 20:35 Labs: Laboratory Results - last 24 hr 03/24/18 03/24/18 03/24/18 20:35 20:35 20:46 WBC 5.1 RBC 5.39 Hgb 15.8 D Hct 49.0 MCV 91.0 D MCH 29.3 MCHC 32.3 L RDW 14.5 Plt Count 251 MPV 9.7 Neut % (Auto) 64.0 Lymph % (Auto) 24.6 [place] % (Auto) 9.0 Eos % (Auto) 1.2 Baso % (Auto) 1.2 Neut # (Auto) 3.2 Lymph # (Auto) 1.2 [place] # (Auto) 0.5 Eos # (Auto) 0.1 Baso # (Auto) 0.1 pO2 37 VBG pH 7.27 L VBG pCO2 45 VBG HCO3 19.1 VBG Total CO2 22.1 VBG O2 Sat (Calc) 74.2 H VBG Base Excess -6.2 L VBG Potassium 4.5 Glucose > 750 H* Lactate 2.1 Crit Value Called To Dr day Crit Value Called By Sae reddy Crit Value Read Back Y Blood Gas Notified Time 2049 Sodium 129 L 129.0 L Potassium 5.0 Chloride 85 L 86.0 L Carbon Dioxide 22 Anion Gap 27 H BUN 16 Creatinine 0.8 Est GFR ( Amer) > 60 Est GFR (Non-Af Amer) > 60 Random Glucose 791 H* D Calcium 9.6 Magnesium 2.0 Total Bilirubin 1.2 AST 20 ALT 54 Alkaline Phosphatase 137 H D Total Protein 8.1 Albumin 5.2 H D Globulin 2.9 Albumin/Globulin Ratio 1.8 Venous Blood Potassium 4.5 Urine Color Urine Clarity Urine pH Ur Specific Gilbert Urine Protein Urine Glucose (UA) Urine Ketones Urine Blood Urine Nitrate Urine Bilirubin Urine Urobilinogen Ur Leukocyte Esterase Urine WBC (Auto) B-Hydroxybutyrate 3.98 H 03/24/18 21:10 WBC RBC Hgb Hct MCV MCH MCHC RDW Plt Count MPV Neut % (Auto) Lymph % (Auto) [place] % (Auto) Eos % (Auto) Baso % (Auto) Neut # (Auto) Lymph # (Auto) [place] # (Auto) Eos # (Auto) Baso # (Auto) pO2 VBG pH VBG pCO2 VBG HCO3 VBG Total CO2 VBG O2 Sat (Calc) VBG Base Excess VBG Potassium Glucose Lactate Crit Value Called To Crit Value Called By Crit Value Read Back Blood Gas Notified Time Sodium Potassium Chloride Carbon Dioxide Anion Gap BUN Creatinine Est GFR ( Amer) Est GFR (Non-Af Amer) Random Glucose Calcium Magnesium Total Bilirubin AST ALT Alkaline Phosphatase Total Protein Albumin Globulin Albumin/Globulin Ratio Venous Blood Potassium Urine Color Colorless Urine Clarity Clear Urine pH 5.0 Ur Specific Gilbert 1.030 Urine Protein Negative Urine Glucose (UA) 3+ H Urine Ketones 1+ H Urine Blood Negative Urine Nitrate Negative Urine Bilirubin Negative Urine Urobilinogen Normal Ur Leukocyte Esterase Neg Urine WBC (Auto) < 1 B-Hydroxybutyrate Assessment & Plan (1) DKA (diabetic ketoacidoses) Assessment and Plan: IV fluids and insulin drip Monitor glucose, anion gap, lytes stress ulcer prophylaxis Status: Acute
[2018-03-24] MEDS ORDERED: Sodium Chloride 0.9% 1,000 ML IV SCH (23:15)
[2018-03-25] MEDS: Potassium Ch 20mEq in D5-1/2NS 1,000 ML IV SCH ×3 (01:21→15:00)
[2018-03-25 01:44] LABS: BLOOD UREA NITROGEN 12 mg/dL (9-20); CALCIUM 9.1 mg/dl (8.6-10.4); GFR AFRICAN-AMERICAN > 60; GFR NON-AFRICAN AMERICAN > 60
[2018-03-25] MEDS ORDERED: (Lantus) Insulin Glargine, Recombinant SC SCH ×2 (01:44→15:15)
[2018-03-25] MEDS ORDERED: Tramadol 25 mg PO PRN (05:32)
[2018-03-25 07:16] LABS: BASO # 0.1 K/uL (0.0-0.2); BASO % 0.8 % (0.0-2.0); EOS # 0.2 K/uL (0.0-0.7); EOS % 2.7 % (0.0-4.0); LYMPH # 1.9 K/uL (1.0-4.3); MEAN CORPUSCULAR HEMOGLOBIN 28.6 pg (27.0-31.0); MEAN CORPUSCULAR HGB CONC 32.9 g/dL (33.0-37.0); MEAN PLATELET VOLUME 9.2 fL (7.2-11.7); MONO # 0.7 K/uL (0.0-0.8); MONO % 10.7 % (0.0-10.0); NEUT # 3.7 K/uL (1.8-7.0); NEUT % 56.8 % (50.0-75.0); NRBC % 0.1 % (0.0-2.0); RBC 4.82 Mil/uL (4.40-5.90); RED CELL DISTRIBUTION WIDTH 13.9 % (11.5-14.5); WHITE BLOOD COUNT 6.5 K/uL (4.8-10.8)
[2018-03-25 07:17] LABS: MEAN CELL VOLUME 86.9 fL (80.0-94.0)
[2018-03-25] MEDS ORDERED: Oxycodone/Acetaminophen 5/325 mg Tab PO STA (07:19)
[2018-03-25 07:24] LABS: HEMOGLOBIN 13.8 g/dL (12.0-18.0)
[2018-03-25 07:58] LABS: ALB/GLOB RATIO 1.4 (1.0-2.1); ALBUMIN 3.8 g/dL (3.5-5.0); ALT/SGPT 40 U/L (21-72); AST/SGOT 15 U/L (17-59); BLOOD UREA NITROGEN 12 mg/dL (9-20); CALCIUM 8.7 mg/dl (8.6-10.4); GFR AFRICAN-AMERICAN > 60; GFR NON-AFRICAN AMERICAN > 60
[2018-03-25] MEDS: Insulin Human Regular 100 UNIT in Sodium Chloride 0.9% 99 ML IV SCH (08:05)
[2018-03-25] MEDS: QUEtiapine 50 mg XR Tab PO SCH (10:37)
[2018-03-25] MEDS ORDERED: (Novolog) Insulin Aspart, Recombinant 100 u/ml 10 ml vial SC SCH (11:30)
[2018-03-25] MEDS ORDERED: Enoxaparin 30 mg Syringe SC SCH (13:30)
--- NOTE | 2018-03-25 15:17 | RAD ---
Date of service: 03/24/2018 PROCEDURE: CHEST RADIOGRAPH, 1 VIEW HISTORY: SOB COMPARISON: Comparison is made with 01/29/2018 FINDINGS: LUNGS: No evidence of new infiltrate or consolidation in the lungs PLEURA: No pneumothorax or pleural fluid seen. CARDIOVASCULAR: Normal. OSSEOUS STRUCTURES: No significant abnormalities. VISUALIZED UPPER ABDOMEN: Normal. OTHER FINDINGS: None. IMPRESSION: No active disease.
--- NOTE | 2018-03-25 15:19 | CP.PCM.PN ---
Subjective - Date & Time of Evaluation Date of Evaluation: 03/25/18 Time of Evaluation: 13:05 - Subjective Subjective: Patient seen and examined at bedside. Patient's Blood sugar improved. Patient verbalized that he takes 20 units of aspart ac and 20 units of lantus qhs. Patient denies any abdominal pain. Objective - Vital Signs/Intake and Output Vital Signs (last 24 hours): Temp Pulse Resp BP Pulse Ox 98 F 69 12 99/70 L 99 03/25/18 08:00 03/25/18 10:40 03/25/18 10:40 03/25/18 07:57 03/25/18 08:00 Intake and Output: 03/25/18 03/25/18 06:59 18:59 Intake Total 1512 1060 Output Total 650 0 Balance 862 1060 - Medications Medications: Current Medications Enoxaparin Sodium (Lovenox) 40 mg SC DAILY [facility] Potassium Chloride/Dextrose/Sod Cl (Potassium Chl 20 Meq In D5-1/2ns) 1,000 mls @ 150 mls/hr IV .Q6H40M [facility] Last Admin: 03/25/18 08:05 Dose: Not Given Insulin Aspart (Novolog) 12 unit SC AC [facility] Insulin Glargine (Lantus) 20 unit SC HS [facility] Last Admin: 03/25/18 02:04 Dose: 20 u Mesalamine (Delzicol Dr) 400 mg PO TID [facility] Last Admin: 03/25/18 15:11 Dose: 400 mg Morphine Sulfate (Morphine) 1 mg IVP Q4 PRN PRN Reason: Pain, severe (8-10) Pantoprazole Sodium (Protonix Inj) 40 mg IVP DAILY [facility] Last Admin: 03/25/18 10:30 Dose: 40 mg Quetiapine Fumarate (Seroquel Xr) 50 mg PO DAILY [facility] Last Admin: 03/25/18 10:37 Dose: 50 mg Trazodone HCl (Desyrel) 50 mg PO HS PRN PRN Reason: Insomnia - Labs Labs: 03/25/18 07:12 03/25/18 07:12 - Constitutional Appears: Non-toxic, No Acute Distress, In Acute Distress - Head Exam Head Exam: ATRAUMATIC, NORMAL INSPECTION, NORMOCEPHALIC - Eye Exam Eye Exam: Normal appearance - ENT Exam Additional comments: poor dental hygiene - Neck Exam Neck Exam: Full ROM - Respiratory Exam Respiratory Exam: Clear to Ausculation Bilateral, NORMAL BREATHING PATTERN - Cardiovascular Exam Cardiovascular Exam: REGULAR RHYTHM, +S1, +S2, +S4 - GI/Abdominal Exam GI & Abdominal Exam: Normal Bowel Sounds. absent: Tenderness, Rebound - Extremities Exam Extremities Exam: Full ROM, Normal Capillary Refill, Normal Inspection - Neurological Exam Neurological Exam: Alert, Awake, CN II-XII Intact, Oriented x3 - Skin Skin Exam: Normal Color Assessment and Plan - Assessment and Plan (Free Text) Assessment: 27 y/o male with h/o non-compliance admitted to ICU for DKA -DKA: resolved: patient will be switche dfrom IV to subQ insulin ,25 units lantus qhs and 12 units premeals -?crohns's disease: will start mesalamine, no signs of leukocytosis, hodl abx -continue IV hydration -continue dvt/pud ppx Patient remains hemodynamically stable. -endocrine consult as patient's insulin dosages are abnormally high for his weight.
[2018-03-25] MEDS: Lactated Ringer's 1,000 ML IV SCH (16:30)
[2018-03-25] MEDS: (Novolog) Insulin Aspart, Recombinant 100 u/ml 10 ml vial SC SCH (16:37)
[2018-03-25] MEDS ORDERED: Dextrose 50% SYRINGE Inj (50 ml) IV PRN (16:42)
[2018-03-25] MEDS ORDERED: Glucagon Recombinant 1 mg Inj IM PRN (16:42)
--- NOTE | 2018-03-25 22:15 | CP.PCM.HP ---
History of Present Illness - History of Present Illness History of Present Illness: chief complaint:" blurring of vision and lightheadedness This is a 27 year old male with PMHx OF IDDM on insulin, Crohn's Disease, Bipolar and Depression who presents with Lightheadedness and blurring of vision started this evening, associated with dryness of mouth. Patient reports he is compliant with his medications. Patient denies nausea, chest discomfort, SOB, abdominal pain. Denied fever, chills, headache, v/d/c, or urinary symptoms. PMD: Dr. 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) - RENAL Hx Chronic Kidney Disease: No - ENDOCRINE/METABOLIC Hx Endocrine Disorders: Yes Hx Diabetes Mellitus Type 1: Yes (insulin dependent) - HEMATOLOGICAL/ONCOLOGICAL Hx Human Immunodeficiency Virus (HIV): No - INTEGUMENTARY Hx Dermatological Problems: No - MUSCULOSKELETAL/RHEUMATOLOGICAL Hx Falls: No - GASTROINTESTINAL Hx Crohn's Disease: Yes - GENITOURINARY/GYNECOLOGICAL Hx Genitourinary Disorders: No - PSYCHIATRIC Hx Anxiety: Yes Hx Bipolar Disorder: Yes Hx Depression: Yes Hx Schizophrenia: Yes Hx Substance Use: No - SURGICAL HISTORY Hx Surgeries: Yes Other/Comment: wired Jaw - ANESTHESIA Hx Anesthesia: Yes Hx Anesthesia Reactions: No Hx Malignant Hyperthermia: No Meds Allergies/Adverse Reactions: Allergies Allergy/AdvReac Type Severity Reaction Status Date / Time No Known Allergies Allergy Verified 03/09/18 20:46 Results - Vital Signs Recent Vital Signs: Last Vital Signs Temp 97.7 F 03/25/18 20:00 Pulse 73 03/25/18 20:17 Resp 10 L 03/25/18 20:17 BP 94/55 L 03/25/18 20:17 Pulse Ox 99 03/25/18 08:00 - Labs Result Diagrams: 03/25/18 07:12 03/25/18 07:12 Labs: Laboratory Results - last 24 hr 03/25/18 03/25/18 03/25/18 01:15 07:12 07:12 WBC 6.5 RBC 4.82 Hgb 13.8 D Hct 41.9 MCV 86.9 D MCH 28.6 MCHC 32.9 L RDW 13.9 Plt Count 232 MPV 9.2 Neut % (Auto) 56.8 Lymph % (Auto) 29.0 Brooks % (Auto) 10.7 H Eos % (Auto) 2.7 Baso % (Auto) 0.8 Neut # (Auto) 3.7 Lymph # (Auto) 1.9 Brooks # (Auto) 0.7 Eos # (Auto) 0.2 Baso # (Auto) 0.1 Sodium 140 138 Potassium 3.4 L 3.6 Chloride 100 102 Carbon Dioxide 25 25 Anion Gap 18 16 BUN 12 12 Creatinine 0.5 L 0.6 L Est GFR ( Amer) > 60 > 60 Est GFR (Non-Af Amer) > 60 > 60 Random Glucose 125 H 118 H Calcium 9.1 8.7 Phosphorus 3.7 Magnesium 1.9 Total Bilirubin 0.7 AST 15 L D ALT 40 Alkaline Phosphatase 77 Total Protein 6.5 Albumin 3.8 Globulin 2.7 Albumin/Globulin Ratio 1.4
--- NOTE | 2018-03-25 22:15 | CP.PCM.PN ---
Subjective - Date & Time of Evaluation Date of Evaluation: 03/25/18 Time of Evaluation: 19:00 - Subjective Subjective: pt seen and examined Objective - Vital Signs/Intake and Output Vital Signs (last 24 hours): Temp Pulse Resp BP Pulse Ox 97.7 F 73 10 L 94/55 L 99 03/25/18 20:00 03/25/18 20:17 03/25/18 20:17 03/25/18 20:17 03/25/18 08:00 Intake and Output: 03/25/18 03/26/18 18:59 06:59 Intake Total 2280 340 Output Total 300 500 Balance 1979 -160 - Medications Medications: Current Medications Dextrose (Dextrose 50% Inj) 0 ml IV STAT PRN; Protocol PRN Reason: Hypoglycemia Protocol Dextrose (Glutose 15) 0 gm PO ONCE PRN; Protocol PRN Reason: Hypoglycemia Protocol Enoxaparin Sodium (Lovenox) 40 mg SC DAILY [facility] Glucagon (Glucagen Diagnostic Kit) 0 mg IM STAT PRN; Protocol PRN Reason: Hypoglycemia Protocol Lactated Ringer's (Lactated Ringer's) 1,000 mls @ 100 mls/hr IV .Q10H [facility] Last Admin: 03/25/18 16:30 Dose: 100 mls/hr Dextrose (Dextrose 5% In Water 1000 Ml) 1,000 mls @ 0 mls/hr IV .Q0M PRN; Protocol; Per Protocol PRN Reason: Hypoglycemia Protocol Insulin Aspart (Novolog) 12 unit SC AC [facility] Last Admin: 03/25/18 16:37 Dose: Not Given Insulin Glargine (Lantus) 25 unit SC HS [facility] Last Admin: 03/25/18 21:25 Dose: 25 u Mesalamine (Delzicol Dr) 400 mg PO TID [facility] Last Admin: 03/25/18 18:16 Dose: Not Given Morphine Sulfate (Morphine) 1 mg IVP Q4 PRN PRN Reason: Pain, severe (8-10) Pantoprazole Sodium (Protonix Inj) 40 mg IVP DAILY [facility] Last Admin: 03/25/18 10:30 Dose: 40 mg Quetiapine Fumarate (Seroquel Xr) 50 mg PO DAILY [facility] Last Admin: 03/25/18 10:37 Dose: 50 mg Trazodone HCl (Desyrel) 50 mg PO HS PRN PRN Reason: Insomnia - Labs Labs: 03/25/18 07:12 03/25/18 07:12
[2018-03-26] MEDS: Lactated Ringer's 1,000 ML IV SCH ×3 (02:19→14:58)
--- NOTE | 2018-03-26 02:26 | CON ---
Copied To: Kayce Kaplan MD Attending MD: Kayec Kaplan MD DATE: 03/25/2018 ENDOCRINOLOGY CONSULTATION HISTORY OF PRESENT ILLNESS: This is a 27-year-old male with known history of type 1 insulin-dependent diabetes, presenting here with progressively worsening dizziness and lightheadedness with blurred vision and bifrontal headaches and was found to have marked hyperglycemic accelerations and is now being referred for diabetic evaluation and management. PAST MEDICAL HISTORY: As mentioned above, history of type 1 insulin-dependent diabetes, on a combination of Lantus given as 20 units at bedtime with Humalog given at variable dose of 10-20 units t.i.d. before meals; history of diabetic retinopathy and polyneuropathy. History of Crohn's disease with multiple readmissions for GI related symptoms especially abdominal pain and loose watery diarrhea. Also history of generalized anxiety and depression with underlying schizophrenia. FAMILY HISTORY: Positive for diabetes and hypertension. SOCIAL HISTORY: Admits to using marijuana and occasional cocaine. Denies any other substance use. Has a supportive family otherwise. REVIEW OF SYSTEMS: Admits to sudden onset of generalized body weakness with supervening bifrontal headaches and visual blurring. Moreover, admits to progressive bouts of dizziness and lightheadedness, worse on the day of admission. No chest pains, palpitations or PNDs. His oral intake has been variable with nausea, dyspepsia and episodic vomiting episodes. Also, admits to marked polyuria, nocturia, and polydipsia with about five pounds or so weight loss. PHYSICAL EXAMINATION: GENERAL: This is a male, in no apparent distress. VITAL SIGNS: With a blood pressure of 144/80, pulse of 76 beats per minute and regular, temperature 98, respirations 20. Height is 5 feet 8 inches. Weight is 100 pounds. HEENT: Head is normocephalic. Eyes are anicteric with pink conjunctivae. Funduscopy not possible at this time. Ears, nose, and throat otherwise normal. NECK: Supple. Thyroid gland is normal in size. No carotid bruits or cervical adenopathy. CARDIOPULMONARY: Some adynamic precordium. S1 and S2 are rapid and regular. LUNGS: Clear to auscultation. ABDOMEN: Flat, soft with positive bowel sounds. EXTREMITIES: No peripheral edema. Pulses +2 bilaterally. LABORATORY DATA: His initial chemistry showed a BUN of 16, sodium 129, potassium 5, chloride 85, CO2 of 22, glucose 791, creatinine 0.8. His fasting glucose today was 180 mg/dL with a sodium of 138. ASSESSMENT: This is a 27-year-old male with uncontrolled and decompensated type 1 insulin-dependent diabetes, presenting here with marked hyperglycemic accelerations and hyponatremia with dehydration and prerenal azotemia as noted. He also has diabetic microvascular complications of retinopathy and polyneuropathy as noted. PLAN OF MANAGEMENT: As discussed with the patient and staff, we will modify his current insulin regimen also because of the variability of his oral intake and lower the basal insulin with Lantus to be given as 20 units subcutaneously at bedtime daily as ordered. We will lower his Humalog to 10 units subcu t.i.d. before meals as ordered. We will modify the coverage scale to obviate hypoglycemia and detailed orders have been given. We will obtain a hemoglobin A1c to confirm his prior glycemic control and baseline thyroid function studies will be ordered. We will obtain serial chemistries and supplement accordingly as needed. We will also continue the vigorous IV hydration as given. We will follow. Kayce Kaplan MD
[2018-03-26 06:42] LABS: EOS # 0.1 K/uL (0.0-0.7); EOS % 2.6 % (0.0-4.0); HEMOGLOBIN 13.4 g/dL (12.0-18.0); LYMPH # 1.4 K/uL (1.0-4.3); LYMPH % 32.4 % (20.0-40.0); MEAN CELL VOLUME 87.3 fL (80.0-94.0); MEAN CORPUSCULAR HEMOGLOBIN 29.2 pg (27.0-31.0); MEAN CORPUSCULAR HGB CONC 33.4 g/dL (33.0-37.0); MEAN PLATELET VOLUME 9.5 fL (7.2-11.7); MONO # 0.4 K/uL (0.0-0.8); MONO % 9.1 % (0.0-10.0); NEUT # 2.4 K/uL (1.8-7.0); NEUT % 54.9 % (50.0-75.0); RBC 4.59 Mil/uL (4.40-5.90); RED CELL DISTRIBUTION WIDTH 14.2 % (11.5-14.5); WHITE BLOOD COUNT 4.3 K/uL (4.8-10.8)
[2018-03-26] MEDS: (Novolog) Insulin Aspart, Recombinant 100 u/ml 10 ml vial SC SCH ×7 (08:02→21:44)
[2018-03-26 08:07] LABS: ALB/GLOB RATIO 1.4 (1.0-2.1); ALBUMIN 3.8 g/dL (3.5-5.0); ALT/SGPT 40 U/L (21-72); AST/SGOT 22 U/L (17-59); BLOOD UREA NITROGEN 16 mg/dL (9-20); GFR AFRICAN-AMERICAN > 60; GFR NON-AFRICAN AMERICAN > 60
[2018-03-26] MEDS: QUEtiapine 50 mg XR Tab PO SCH (09:33)
[2018-03-26] MEDS: Enoxaparin 40 mg Syringe SC SCH (09:33)
--- NOTE | 2018-03-26 18:19 | PN ---
Copied To: Kayce Kaplan MD Attending MD: Kayce Kaplan MD DATE: 03/26/2018 ENDO FOLLOWUP NOTE LOCATION: In room 663. SUBJECTIVE: This is a 27-year-old male with recent uncontrolled type 1 insulin-dependent diabetes, presenting here with marked hyperglycemic accelerations and is now being followed closely for metabolic management. His glycemic levels are also fluctuating concomitant with variability of his oral intake as noted overnight. His glucose levels have ranged from 44 to and up to 275 mg/dL today as noted. His A1c is 15.7% clearly elevated and indicative of suboptimal metabolic control of his diabetic condition even prior to this admission. LABORATORY DATA: His chemistry showed BUN of 16, sodium 139, potassium 4.1, chloride 103, CO2 of 29, glucose 130, and creatinine 0.6. ASSESSMENT AND PLAN: So, at this time, we will modify once again his basal insulin and lower the Lantus to 20 units subcutaneously at bedtime daily to start tonight. We will also lower his NovoLog down to 6 units subcutaneously t.i.d. before meals to start today as ordered. We will obtain serial chemistries and supplement accordingly as needed. We will follow. Kayce Kaplan MD
[2018-03-26] MEDS ORDERED: Loperamide Hydrochloride 1 mg/5 ml Cup PO PRN (19:14)
--- NOTE | 2018-03-26 20:51 | CP.PCM.PN ---
Objective - Vital Signs/Intake and Output Vital Signs (last 24 hours): Temp Pulse Resp BP Pulse Ox 98.1 F 96 H 20 116/70 98 03/26/18 17:10 03/26/18 17:10 03/26/18 17:10 03/26/18 17:10 03/26/18 17:10 - Medications Medications: Current Medications Dextrose (Dextrose 50% Inj) 0 ml IV STAT PRN; Protocol PRN Reason: Hypoglycemia Protocol Last Admin: 03/26/18 10:51 Dose: 50 ml Dextrose (Glutose 15) 0 gm PO ONCE PRN; Protocol PRN Reason: Hypoglycemia Protocol Docusate Sodium (Colace) 100 mg PO BID [facility] Enoxaparin Sodium (Lovenox) 40 mg SC DAILY [facility] Last Admin: 03/26/18 09:33 Dose: 40 mg Glucagon (Glucagen Diagnostic Kit) 0 mg IM STAT PRN; Protocol PRN Reason: Hypoglycemia Protocol Lactated Ringer's (Lactated Ringer's) 1,000 mls @ 100 mls/hr IV .Q10H [facility] Last Admin: 03/26/18 14:58 Dose: 100 mls/hr Dextrose (Dextrose 5% In Water 1000 Ml) 1,000 mls @ 0 mls/hr IV .Q0M PRN; Protocol; Per Protocol PRN Reason: Hypoglycemia Protocol Insulin Aspart (Novolog) 0 unit SC ACHS [facility] Last Admin: 03/26/18 17:54 Dose: 3 u Insulin Aspart (Novolog) 6 unit SC AC [facility] Last Admin: 03/26/18 17:53 Dose: 6 u Insulin Glargine (Lantus) 20 unit SC HS [facility] Loperamide HCl (Imodium) 2 mg PO QID PRN PRN Reason: Diarrhea Last Admin: 03/26/18 19:47 Dose: 2 mg Mesalamine (Delzicol Dr) 400 mg PO TID [facility] Last Admin: 03/26/18 17:52 Dose: 400 mg Morphine Sulfate (Morphine) 1 mg IVP Q4 PRN PRN Reason: Pain, severe (8-10) Last Admin: 03/26/18 17:52 Dose: 1 mg Pantoprazole Sodium (Protonix Inj) 40 mg IVP DAILY [facility] Last Admin: 03/26/18 09:32 Dose: 40 mg Quetiapine Fumarate (Seroquel Xr) 50 mg PO DAILY [facility] Last Admin: 03/26/18 09:33 Dose: 50 mg Trazodone HCl (Desyrel) 50 mg PO HS PRN PRN Reason: Insomnia Last Admin: 03/25/18 23:29 Dose: 50 mg - Labs Labs: 03/26/18 06:34 03/26/18 06:34
[2018-03-26] MEDS ORDERED: (Lantus) Insulin Glargine, Recombinant SC SCH ×2 (22:00)
[2018-03-27] MEDS: Lactated Ringer's 1,000 ML IV SCH ×2 (01:00→07:30)
[2018-03-27] MEDS: (Novolog) Insulin Aspart, Recombinant 100 u/ml 10 ml vial SC SCH ×5 (07:26→17:27)
[2018-03-27 08:11] LABS: MEAN CELL VOLUME 87.8 fL (80.0-94.0); MEAN CORPUSCULAR HEMOGLOBIN 29.3 pg (27.0-31.0); MEAN CORPUSCULAR HGB CONC 33.4 g/dL (33.0-37.0); MEAN PLATELET VOLUME 9.4 fL (7.2-11.7); RBC 4.43 Mil/uL (4.40-5.90); RED CELL DISTRIBUTION WIDTH 14.3 % (11.5-14.5); WHITE BLOOD COUNT 4.4 K/uL (4.8-10.8)
[2018-03-27 08:25] LABS: BLOOD UREA NITROGEN 9 mg/dL (9-20); CALCIUM 8.9 mg/dl (8.6-10.4); GFR AFRICAN-AMERICAN > 60; GFR NON-AFRICAN AMERICAN > 60
--- NOTE | 2018-03-27 08:48 | PN ---
Copied To: Roshan Loving MD Attending MD: Roshan Loving MD DATE: 03/26/2018 SUBJECTIVE: Patient has abdominal pain. He has history of Crohn's disease and he is in a lot of pain. His blood sugars have been widely fluctuating. He had 2 episodes of hypoglycemia today and then he had several high sugars. He has been seen by Endocrinology. PHYSICAL EXAMINATION: VITAL SIGNS: He is afebrile. Blood pressure 116/70, pulse 85, respiratory rate 20, temperature 98.1. LUNGS: Clear. CARDIOVASCULAR: S1, S2. Regular. ABDOMEN: Positive tenderness. ASSESSMENT: 1. Crohn's disease. 2. Dehydration. 3. . PLAN: GI consult. Monitor patient. Roshan Loving MD
[2018-03-27] MEDS: QUEtiapine 50 mg XR Tab PO SCH (10:06)
[2018-03-27] MEDS: Enoxaparin 40 mg Syringe SC SCH (10:08)
--- NOTE | 2018-03-27 13:59 | CP.PCM.CON ---
History of Present Illness - History of Present Illness History of Present Illness: PGY-4 GI Fellow Initial Consult Note Mr. Gonzalez is a 27 yo male with h/o DM1, Substance abuse, Bipolar and Crohns ( maybe small bowel involvement based on a CT scan, no meds, no CSPY on file) who was originally admitted a few days ago for DKA. GI consult after pt reports abdominal pain a few days into admission. Pt states that the night before last he notice some RUQ and epigastric,"grabbing ," 10/10, non-radiating pain. States that he also felt "waves" in his rectum and the urge to defecate where he defecated hard, greenish-brown stools. States that he normally has formed brown stools. During my encounter, he states that he abd pain has significantly improved/nearly resolved as he was eating lunch at the time without difficultly. States he is hopefuly to return home later today. He denies any fever, chills, CP, SOB, N/V, diarrhea, melena nor hematochezia. 12 point ROS negative other than stated above MHx: As stated in HPI SHx: No prior abdominal surgery. 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) - RENAL Hx Chronic Kidney Disease: No - ENDOCRINE/METABOLIC Hx Endocrine Disorders: Yes Hx Diabetes Mellitus Type 1: Yes (insulin dependent) - HEMATOLOGICAL/ONCOLOGICAL Hx Human Immunodeficiency Virus (HIV): No - INTEGUMENTARY Hx Dermatological Problems: No - MUSCULOSKELETAL/RHEUMATOLOGICAL Hx Falls: No - GASTROINTESTINAL Hx Crohn's Disease: Yes - GENITOURINARY/GYNECOLOGICAL Hx Genitourinary Disorders: No - PSYCHIATRIC Hx Anxiety: Yes Hx Bipolar Disorder: Yes Hx Depression: Yes Hx Schizophrenia: Yes Hx Substance Use: No - SURGICAL HISTORY Hx Surgeries: Yes Other/Comment: wired Jaw - ANESTHESIA Hx Anesthesia: Yes Hx Anesthesia Reactions: No Hx Malignant Hyperthermia: No Meds Allergies/Adverse Reactions: Allergies Allergy/AdvReac Type Severity Reaction Status Date / Time No Known Allergies Allergy Verified 03/09/18 20:46 - Medications Medications: Current Medications Dextrose (Dextrose 50% Inj) 0 ml IV STAT PRN; Protocol PRN Reason: Hypoglycemia Protocol Last Admin: 03/26/18 10:51 Dose: 50 ml Dextrose (Glutose 15) 0 gm PO ONCE PRN; Protocol PRN Reason: Hypoglycemia Protocol Docusate Sodium (Colace) 100 mg PO BID [facility]S [facility] Enoxaparin Sodium (Lovenox) 40 mg SC DAILY [facility] Last Admin: 03/27/18 10:08 Dose: 40 mg Glucagon (Glucagen Diagnostic Kit) 0 mg IM STAT PRN; Protocol PRN Reason: Hypoglycemia Protocol Lactated Ringer's (Lactated Ringer's) 1,000 mls @ 100 mls/hr IV .Q10H [facility]S [facility] Last Admin: 03/27/18 07:30 Dose: Not Given Dextrose (Dextrose 5% In Water 1000 Ml) 1,000 mls @ 0 mls/hr IV .Q0M PRN; Protocol; Per Protocol PRN Reason: Hypoglycemia Protocol Insulin Aspart (Novolog) 0 unit SC ACHS [facility]S [facility] Last Admin: 03/27/18 11:20 Dose: Not Given Insulin Aspart (Novolog) 8 unit SC AC [facility] Insulin Glargine (Lantus) 24 unit SC HS [facility] 234 [facility]S AT [facility] Loperamide HCl (Imodium) 2 mg PO QID PRN PRN Reason: Diarrhea Last Admin: 03/27/18 02:08 Dose: 2 mg Mesalamine (Delzicol Dr) 400 mg PO TID [facility] Last Admin: 03/27/18 13:39 Dose: 400 mg Morphine Sulfate (Morphine) 1 mg IVP Q4 PRN PRN Reason: Pain, severe (8-10) Last Admin: 03/27/18 10:15 Dose: 1 mg Pantoprazole Sodium (Protonix Inj) 40 mg IVP DAILY [facility] Last Admin: 03/27/18 10:06 Dose: 40 mg Quetiapine Fumarate (Seroquel Xr) 50 mg PO DAILY [facility] 234 [facility] Last Admin: 03/27/18 10:06 Dose: 50 mg Trazodone HCl (Desyrel) 50 mg PO HS PRN PRN Reason: Insomnia Last Admin: 03/27/18 00:17 Dose: 50 mg Physical Exam - Constitutional Appears: Well, Non-toxic - Head Exam Head Exam: ATRAUMATIC, NORMAL INSPECTION - Eye Exam Eye Exam: EOMI. absent: Conjunctival injection, Scleral icterus - ENT Exam ENT Exam: Mucous Membranes Moist, Normal External Ear Exam. absent: Mucous Membranes Dry - Respiratory Exam Respiratory Exam: Clear to Auscultation Bilateral, NORMAL BREATHING PATTERN. absent: Accessory Muscle Use, Wheezes - Cardiovascular Exam Cardiovascular Exam: REGULAR RHYTHM, RRR. absent: Bradycardia, Tachycardia - GI/Abdominal Exam GI & Abdominal Exam: Normal Bowel Sounds, Soft. absent: Bruit, Diminished Bowel Sounds, Distended, Firm, Guarding, Hernia, Hyperactive Bowel Sounds, Hypoactive Bowel Sounds, Mass, Organomegaly, Pulsatile Mass, Rebound, Rigid, Tenderness - Rectal Exam Rectal Exam: Deferred - Extremities Exam Extremities exam: Positive for: normal inspection. Negative for: pedal edema - Neurological Exam Neurological exam: Alert, CN II-XII Intact, Oriented x3 - Psychiatric Exam Psychiatric exam: Normal Affect, Normal Mood - Skin Skin Exam: Normal Color, Warm Results - Vital Signs Recent Vital Signs: Last Vital Signs Temp 97.3 F L 03/27/18 07:00 Pulse 74 03/27/18 07:00 Resp 20 03/27/18 07:00 BP 119/71 03/27/18 07:00 Pulse Ox 100 03/27/18 07:00 - Labs Result Diagrams: 03/27/18 08:00 03/27/18 08:00 Labs: Laboratory Results - last 24 hr 03/26/18 03/26/18 03/27/18 16:32 21:42 02:00 WBC RBC Hgb Hct MCV MCH MCHC RDW Plt Count MPV Sodium Potassium Chloride Carbon Dioxide Anion Gap BUN Creatinine Est GFR ( Amer) Est GFR (Non-Af Amer) POC Glucose (mg/dL) 340 H 130 H 255 H Random Glucose Calcium 03/27/18 03/27/18 03/27/18 06:27 08:00 08:00 WBC 4.4 L RBC 4.43 Hgb 13.0 Hct 38.9 MCV 87.8 MCH 29.3 MCHC 33.4 RDW 14.3 Plt Count 197 MPV 9.4 Sodium 139 Potassium 4.5 Chloride 100 Carbon Dioxide 30 Anion Gap 13 BUN 9 Creatinine 0.6 L Est GFR ( Amer) > 60 Est GFR (Non-Af Amer) > 60 POC Glucose (mg/dL) 239 H Random Glucose 233 H Calcium 8.9 03/27/18 11:15 WBC RBC Hgb Hct MCV MCH MCHC RDW Plt Count MPV Sodium Potassium Chloride Carbon Dioxide Anion Gap BUN Creatinine Est GFR ( Amer) Est GFR (Non-Af Amer) POC Glucose (mg/dL) 225 H Random Glucose Calcium Assessment & Plan - Assessment and Plan (Free Text) Assessment: 27 yo male with reported h/o Crohn's, DM1, bipolar, substance abuse, presenting with DKA recently complaining of abd pain. # Abd Pain: Unclear etiology. Reassuringly, self resolved without intervention. Pt with somewhat hard stools so perhaps related to constipation? Perhaps some kind of gastroparesis in uncontrolled DM, though no N/V reported. Does not seem like a Crohn's flare clinically. Plan: - If continue to tolerate PO with improved blood sugars and BMs, OK to DC from GI standpoint - Stopped loperamide given reported hard stools - If stays overnight, would check ESR/CRP in AM to see if elevated to suggest Crohn's flare - Encouraged outpatient f/u and compliance with insulin Pt discussed with Dr. Reyes
[2018-03-27] MEDS ORDERED: (Novolog) Insulin Aspart, Recombinant 100 u/ml 10 ml vial SC SCH (16:30)
[2018-03-27 16:42] VITALS: BP 97/61; PULSE 77; RESP 18; TEMP 98.2; O2SAT 97
--- NOTE | 2018-03-27 18:59 | PN ---
Copied To: Kayce Kaplan MD Attending MD: Kayce Kaplan MD DATE: 03/27/2018 ENDO FOLLOWUP NOTE LOCATION: In room 663. SUBJECTIVE: This is a 27-year-old male with recent uncontrolled type 1 insulin-dependent diabetes, presenting here with marked hyperglycemic accelerations and dehydration and he is now improving clinically and metabolically as noted thereof. His glucose levels have ranged from 225 to 239 mg/dL. LABORATORY DATA: His latest chemistry showed a BUN of 9, sodium 139, potassium 4.5, chloride 100, CO2 of 30, glucose 233, and creatinine 0.6. ASSESSMENT AND PLAN: So at this time, we will modify once again his basal and bolus insulin regimen to optimize metabolic control, especially in the light of variable oral intake as noted. We will increase the basal insulin with Lantus to be given as 24 units subcutaneously at bedtime daily to start tonight. We will continue the low dose correction scale using NovoLog insulin as given to obviate hypoglycemia and detailed orders have been given. We will also increase the NovoLog to 80 units subcutaneously t.i.d. before meals to start today at dinnertime. We will obtain serial chemistries and supplement accordingly as needed. We will follow. Kayce Kaplan MD
[2018-03-27] MEDS ORDERED: (Lantus) Insulin Glargine, Recombinant SC SCH (22:00)
--- NOTE | 2018-03-27 23:42 | CP.PCM.DIS ---
Provider - Provider Date of Admission: 03/24/18 21:38 Attending physician: oRshan Loving MD Hospital Course - Lab Results Lab Results: Micro Results 03/25/18 06:00 Nose MRSA Culture - Final MRSA NOT DETECTED Most Recent Lab Values WBC 4.4 K/uL (4.8-10.8) L 03/27/18 08:00 RBC 4.43 Mil/uL (4.40-5.90) 03/27/18 08:00 Hgb 13.0 g/dL (12.0-18.0) 03/27/18 08:00 Hct 38.9 % (35.0-51.0) 03/27/18 08:00 MCV 87.8 fL (80.0-94.0) 03/27/18 08:00 MCH 29.3 pg (27.0-31.0) 03/27/18 08:00 MCHC 33.4 g/dL (33.0-37.0) 03/27/18 08:00 RDW 14.3 % (11.5-14.5) 03/27/18 08:00 Plt Count 197 K/uL (130-400) 03/27/18 08:00 MPV 9.4 fL (7.2-11.7) 03/27/18 08:00 Neut % (Auto) 54.9 % (50.0-75.0) 03/26/18 06:34 Lymph % (Auto) 32.4 % (20.0-40.0) 03/26/18 06:34 [place] % (Auto) 9.1 % (0.0-10.0) 03/26/18 06:34 Eos % (Auto) 2.6 % (0.0-4.0) 03/26/18 06:34 Baso % (Auto) 1.0 % (0.0-2.0) 03/26/18 06:34 Neut # (Auto) 2.4 K/uL (1.8-7.0) 03/26/18 06:34 Lymph # (Auto) 1.4 K/uL (1.0-4.3) 03/26/18 06:34 [place] # (Auto) 0.4 K/uL (0.0-0.8) 03/26/18 06:34 Eos # (Auto) 0.1 K/uL (0.0-0.7) 03/26/18 06:34 Baso # (Auto) 0.0 K/uL (0.0-0.2) 03/26/18 06:34 pO2 37 mm/Hg (30-55) 03/24/18 20:46 VBG pH 7.27 (7.32-7.43) L 03/24/18 20:46 VBG pCO2 45 mmHg (40-60) 03/24/18 20:46 VBG HCO3 19.1 mmol/L 03/24/18 20:46 VBG Total CO2 22.1 mmol/L (22-28) 03/24/18 20:46 VBG O2 Sat (Calc) 74.2 % (40-65) H 03/24/18 20:46 VBG Base Excess -6.2 mmol/L (0.0-2.0) L 03/24/18 20:46 VBG Potassium 4.5 mmol/L (3.6-5.2) 03/24/18 20:46 Sodium 129.0 mmol/l (132-148) L 03/24/18 20:46 Chloride 86.0 mmol/L (98-107) L 03/24/18 20:46 Glucose > 750 mg/dl (75-110) H* 03/24/18 20:46 Lactate 2.1 mmol/L (0.7-2.1) 03/24/18 20:46 Crit Value Called To Dr day 03/24/18 20:46 Crit Value Called By Sae reddy 03/24/18 20:46 Crit Value Read Back Y 03/24/18 20:46 Blood Gas Notified Time 204903/24/18 20:46 Sodium 139 mmol/L (132-148) 03/27/18 08:00 Potassium 4.5 mmol/L (3.6-5.2) 03/27/18 08:00 Chloride 100 mmol/L (98-107) 03/27/18 08:00 Carbon Dioxide 30 mmol/L (22-30) 03/27/18 08:00 Anion Gap 13 (10-20) 03/27/18 08:00 BUN 9 mg/dL (9-20) 03/27/18 08:00 Creatinine 0.6 mg/dL (0.8-1.5) L 03/27/18 08:00 Est GFR ( Amer) > 60 03/27/18 08:00 Est GFR (Non-Af Amer) > 60 03/27/18 08:00 POC Glucose (mg/dL) 343 mg/dL (65-110) H 03/27/18 16:30 Random Glucose 233 mg/dL (75-110) H 03/27/18 08:00 Hemoglobin A1c 15.7 % (4.2-6.5) H 03/26/18 06:34 Calcium 8.9 mg/dl (8.6-10.4) 03/27/18 08:00 Phosphorus 3.4 mg/dL (2.5-4.5) 03/26/18 06:34 Magnesium 1.9 mg/dL (1.6-2.3) 03/26/18 06:34 Total Bilirubin 0.5 mg/dL (0.2-1.3) 03/26/18 06:34 AST 22 U/L (17-59) 03/26/18 06:34 ALT 40 U/L (21-72) 03/26/18 06:34 Alkaline Phosphatase 87 U/L (38-126) 03/26/18 06:34 Total Protein 6.5 g/dL (6.3-8.3) 03/26/18 06:34 Albumin 3.8 g/dL (3.5-5.0) 03/26/18 06:34 Globulin 2.8 gm/dL (2.2-3.9) 03/26/18 06:34 Albumin/Globulin Ratio 1.4 (1.0-2.1) 03/26/18 06:34 TSH 3rd Generation 1.39 mIU/L (0.46-4.68) 03/26/18 06:34 Venous Blood Potassium 4.5 mmol/L (3.6-5.2) 03/24/18 20:46 Urine Color Colorless (YELLOW) 03/24/18 21:10 Urine Clarity Clear (Clear) 03/24/18 21:10 Urine pH 5.0 (5.0-8.0) 03/24/18 21:10 Ur Specific [place] 1.030 (1.003-1.030) 03/24/18 21:10 Urine Protein Negative mg/dL (NEGATIVE) 03/24/18 21:10 Urine Glucose (UA) 3+ mg/dL (Normal) H 03/24/18 21:10 Urine Ketones 1+ mg/dL (NEGATIVE) H 03/24/18 21:10 Urine Blood Negative (NEGATIVE) 03/24/18 21:10 Urine Nitrate Negative (NEGATIVE) 03/24/18 21:10 Urine Bilirubin Negative (NEGATIVE) 03/24/18 21:10 Urine Urobilinogen Normal mg/dL (0.2-1.0) 03/24/18 21:10 Ur Leukocyte Esterase Neg [place]/uL (Negative) 03/24/18 21:10 Urine WBC (Auto) < 1 /hpf (0-5) 03/24/18 21:10 B-Hydroxybutyrate 3.98 mM (0.02-0.27) H 03/24/18 20:35 Discharge Exam - Head Exam Head Exam: ATRAUMATIC, NORMAL INSPECTION Discharge Plan - Follow Up Plan Condition: SERIOUS Disposition: AGAINST MEDICAL ADVICE
--- NOTE | 2018-03-28 13:34 | DS ---
Copied To: Roshan Loving MD Attending MD: Roshan Loving MD ADMITTING DIAGNOSIS: . DISCHARGE DIAGNOSES: Diabetic ketoacidosis, Crohn disease, dehydration. HISTORY OF PRESENT ILLNESS: He is a 77-year-old male with a history of Crohn's disease with type 1 diabetes, on insulin and patient developed abdominal pain, nausea, vomiting, generalized weakness, polyuria, polydipsia, polyphagia. Patient was admitted to the ICU, started on IV fluids, fluid boluses, Accu-Chek sliding scale insulin regimen, n.p.o. and patient started to improving and underlying Crohn colitis and because of Crohn's disease, patient has intense abdominal pain and patient needs to be evaluated by GI. No fever. No chills. PHYSICAL EXAMINATION: VITAL SIGNS: Blood pressure , pulse 77, respiratory rate 18, temperature 98.2. LUNGS: Clear. CARDIOVASCULAR SYSTEM: S1 and S2 regular. ASSESSMENT: 1. Diabetic ketoacidosis. 2. Crohn's disease. 3. Dehydration. PLAN: Discharged. Patient signed out against medical advice. Roshan Loving MD
== END 2018-03-27 18:00 | disposition left against medical advice (07) | DRG 295 ==
LOC: C.ER 19:58 → C.9I 21:38 → C.6T 03-25 21:37
PROVIDERS: ADMIT Internal Medicine; ATTEND Internal Medicine
DX: E10.10 Type 1 diabetes mellitus with ketoacidosis without coma (principal); E86.0 Dehydration; E87.1 Hypo-osmolality and hyponatremia; Z79.4 Long term (current) use of insulin; E10.319 Type 1 diabetes mellitus with unspecified diabetic retinopathy without macular edema; E10.42 Type 1 diabetes mellitus with diabetic polyneuropathy; E10.649 Type 1 diabetes mellitus with hypoglycemia without coma; F12.90 Cannabis use, unspecified, uncomplicated; F41.1 Generalized anxiety disorder; H54.8 Legal blindness, as defined in USA; I10 Essential (primary) hypertension; Z91.19 Patient's noncompliance with other medical treatment and regimen; K50.90 Crohn's disease, unspecified, without complications; F31.9 Bipolar disorder, unspecified; H91.90 Unspecified hearing loss, unspecified ear; Z68.1 Body mass index [BMI] 19.9 or less, adult

== ENCOUNTER 2018-04-10 16:48 | Inpatient (IN) | payer MEDICAID ==
[2018-04-10 16:49] VITALS: BMI 16.7
[2018-04-10] MEDS ORDERED: Sodium Chloride 0.9% 1,000 ML IV ONE ×2 (17:10→21:04)
[2018-04-10 17:43] LABS: BASO # 0.1 K/uL (0.0-0.2); EOS # 0.1 K/uL (0.0-0.7); HEMOGLOBIN 13.2 g/dL (12.0-18.0); LYMPH # 1.4 K/uL (1.0-4.3); LYMPH % 23.2 % (20.0-40.0); MEAN CELL VOLUME 88.7 fL (80.0-94.0); MEAN CORPUSCULAR HEMOGLOBIN 29.2 pg (27.0-31.0); MEAN CORPUSCULAR HGB CONC 32.9 g/dL (33.0-37.0); MEAN PLATELET VOLUME 9.6 fL (7.2-11.7); MONO # 0.6 K/uL (0.0-0.8); NEUT # 3.7 K/uL (1.8-7.0); NEUT % 63.8 % (50.0-75.0); NRBC % 0.1 % (0.0-2.0); RBC 4.53 Mil/uL (4.40-5.90); RED CELL DISTRIBUTION WIDTH 14.2 % (11.5-14.5); WHITE BLOOD COUNT 5.8 K/uL (4.8-10.8)
[2018-04-10] MEDS ORDERED: Sodium Chloride 0.9% 1,000 ML ONE (17:46)
[2018-04-10] MEDS ORDERED: Morphine 4 MG/ML VIAL ONE (17:46)
--- NOTE | 2018-04-10 18:00 | C.PDOC ---
History Of Present Illness <Aliza Mckenna - Last Filed: 04/10/18 18:46> <Zach Delcid - Last Filed: 04/10/18 21:08> 27 y/o male with PMHx of DM and Crohns presents with 2 day history of nausea, vomiting, and diarrhea. Seen at Dr. Liz for evaluation of the diarrhea, FS was found to be > 500 so he was sent to the ER. Otherwise he denies any dizziness, chest pain, SOB, GI bleeding, fevers, numbness, weakness, or other complaints. (Aliza Mckenna) History Per: Patient History/Exam Limitations: no limitations Onset/Duration Of Symptoms: Days Current Symptoms Are (Timing): Still Present Associated Infectious Symptoms: Nausea, Vomiting, Diarrhea <Aliza Mckenna - Last Filed: 04/10/18 18:46> <Zach Delcid - Last Filed: 04/10/18 21:08> Time Seen by Provider: 04/10/18 16:50 Chief Complaint (Nursing): High Blood Sugar Past Medical History Reviewed: Historical Data, Nursing Documentation, Vital Signs - Medical History PMH: Anxiety, Bipolar Disorder, Crohn's Disease, Depression, Diabetes (Type 1), HTN, Schizophrenia Denies: HIV, Chronic Kidney Disease Family History: States: Unknown Family Hx - Social History Hx Tobacco Use: No Hx Alcohol Use: No Hx Substance Use: No - Immunization History Hx Tetanus Toxoid Vaccination: Yes Hx Influenza Vaccination: Yes Hx Pneumococcal Vaccination: Yes <Aliza Mckenna - Last Filed: 04/10/18 18:46> Vital Signs: Last Vital Signs Temp 97.9 F 04/10/18 18:32 Pulse 96 H 04/10/18 18:32 Resp 20 04/10/18 18:32 BP 141/93 H 04/10/18 18:32 Pulse Ox 96 04/10/18 18:47 - [facility] Procedures (07/21/17) (07/21/17) DRAINAGE OF ANUS, OPEN APPROACH (11/26/17) Review Of Systems Except As Marked, All Systems Reviewed And Found Negative. Constitutional: Negative for: Fever, Chills Eyes: Negative for: Vision Change Cardiovascular: Negative for: Chest Pain Respiratory: Negative for: Shortness of Breath Gastrointestinal: Positive for: Nausea, Vomiting, Diarrhea. Negative for: Other (GI bleed) Genitourinary: Negative for: Dysuria, Frequency, Incontinence Neurological: Negative for: Weakness, Numbness, Confusion, Altered Mental Status , Dizziness <Aliza Mckenna C - Last Filed: 04/10/18 18:46> Physical Exam - Physical Exam Appears: No Acute Distress, Chronically Ill, Other (Thin appearing) Skin: Warm, Dry Head: Atraumatic, Normacephalic Eye(s): bilateral: Normal Inspection, PERRL, EOMI Nose: Normal Oral Mucosa: Moist Neck: Normal ROM, Supple Chest: Symmetrical Cardiovascular: Rhythm Regular, No Murmur Respiratory: Normal Breath Sounds, No Rales, No Rhonchi, No Wheezing Gastrointestinal/Abdominal: Bowel Sounds (hyperactive), Soft, No Tenderness, No Guarding, No Rebound Back: Normal Inspection, No CVA Tenderness Extremity: Bilateral: Atraumatic, Normal Color And Temperature, Normal ROM Neurological/Psych: Oriented x3, Normal Speech, Normal Cranial Nerves, Other ( No focal deficits) Gait: Steady <Aliza Mckenna C - Last Filed: 04/10/18 18:46> ED Course And Treatment - Laboratory Results Result Diagrams: 04/10/18 17:38 04/10/18 17:38 O2 Sat by Pulse Oximetry: 96 (RA) Pulse Ox Interpretation: Normal - Other Rad Obstructive Series X-Ray: Viewed By Me, Read By Radiologist Interpretation: Accession No. : [id number]. Patient Name / ID : CARMINE GILL / [id number]. Exam Date : 04/10/2018 18:08:51 ( Approved ). Study Comment : Sex / Age : M / 27Y. Creator : Aaliyah Warner. Dictator : Umesh Savage MD. Sourcing Consultant : Ornamental Iron Worker : Umesh Savage MD. Approver2 : Report Date : 04/10/2018 18:21:54. My Comment : . Date of service: 04/10/2018. PROCEDURE: Radiographs of the chest and abdomen ( obstructive series). HISTORY: abd pain, vomiting. COMPARISON: No prior. TECHNIQUE: AP radiograph of the chest, with upright and supine radiographs of the abdomen. FINDINGS: CHEST: Lungs: Clear. Cardiovascular: Normal size heart. No pulmonary vascular congestion. Pleura: No pleural fluid. No pneumothorax. Other findings: None. ABDOMEN AND PELVIS: Bowel: No dilated bowel loops. Scattered air-fluid levels common nonspecific. No evidence of bowel obstruction. Free air: None. Bones: Unremarkable. Other findings: None. IMPRESSION: Unremarkable radiographs of chest and abdomen. No evidence of mechanical bowel obstruction. <Aliza Mckenna - Last Filed: 04/10/18 18:46> - Laboratory Results Result Diagrams: 04/10/18 17:38 04/10/18 20:31 <Zach Delcid - Last Filed: 04/10/18 21:08> Medical Decision Making <Aliza Mckenna - Last Filed: 04/10/18 18:46> <Zach Delcid - Last Filed: 04/10/18 21:08> Medical Decision Making: Initial Plan: --EKG --VBG --CMP --Beta hydoxybutyrate --CBC --Obstructive Series X-Ray --IV fluids --Zofran 4 mg IVP Progress/Updates: X-ray demonstrates no obstruction. Labs reviewed and discussed with patient. Patient continues to complain of pain. 4 mg IV Morphine given. IV Insulin initiated as per hyperglycemia protocol. (Aliza Mckenna) Disposition - Disposition Disposition Time: 18:46 <Aliza Mckenna - Last Filed: 04/10/18 18:46> Discussed With : Roshan Loving Doctor Will See Patient In The: Hospital Counseled Patient/Family Regarding: Diagnosis - Disposition Disposition Time: 21:08 - POA Present On Arrival: None <Zach Delcid - Last Filed: 04/10/18 21:08> - Disposition Disposition: HOSPITALIZED Condition: STABLE Forms: [facility] (Bulgarian) - Clinical Impression Clinical Impression: Hyperglycemia, Diarrhea, Abdominal pain - PA / BARK PEELER / Resident Statement /DO has reviewed & agrees with the documentation as recorded. - Scribe Statement The provider has reviewed the documentation as recorded by the Scribe (Lashanda Loredo) <Aliza Mckenna - Last Filed: 04/10/18 18:46> <Zach Delcid - Last Filed: 04/10/18 21:08> - Scribe Statement All medical record entries made by the Scribe were at my direction and personally dictated by me. I have reviewed the chart and agree that the record accurately reflects my personal performance of the history, physical exam, medical decision making, and the department course for this patient. I have also personally directed, reviewed, and agree with the discharge instructions and disposition. (Aliza Mckenna) Physician Patient Turnover Patient Signed Over To: Zach Delcid Handoff Comments: Pending re-evaluation of glucose and lab results. <Aliza Mckenna - Last Filed: 04/10/18 18:46>
[2018-04-10 18:01] LABS: ALB/GLOB RATIO 1.5 (1.0-2.1); ALBUMIN 4.1 g/dL (3.5-5.0); ALT/SGPT 103 U/L (21-72); AST/SGOT 119 U/L (17-59); BLOOD UREA NITROGEN 12 mg/dL (9-20); CALCIUM 8.7 mg/dl (8.6-10.4); GFR NON-AFRICAN AMERICAN > 60
[2018-04-10 18:06] LABS: VENOUS BLOOD GAS BASE EXCESS -0.7 mmol/L (0.0-2.0); VENOUS BLOOD GAS PCO2 49 mmHg (40-60); VENOUS BLOOD GAS PO2 23 mm/Hg (30-55); VENOUS BLOOD PH 7.33 (7.32-7.43)
--- NOTE | 2018-04-10 18:25 | RAD ---
Date of service: 04/10/2018 PROCEDURE: Radiographs of the chest and abdomen (obstructive series) HISTORY: abd pain, vomiting COMPARISON: No prior. TECHNIQUE: AP radiograph of the chest, with upright and supine radiographs of the abdomen. FINDINGS: CHEST: Lungs: Clear. Cardiovascular: Normal size heart. No pulmonary vascular congestion. Pleura: No pleural fluid. No pneumothorax. Other findings: None. ABDOMEN AND PELVIS: Bowel: No dilated bowel loops. Scattered air-fluid levels common nonspecific. No evidence of bowel obstruction. Free air: None. Bones: Unremarkable. Other findings: None. IMPRESSION: Unremarkable radiographs of chest and abdomen. No evidence of mechanical bowel obstruction.
[2018-04-10] MEDS ORDERED: (Novolin R) Insulin Human Regular 100 units/ml vial IV STA (18:34)
[2018-04-10] MEDS ORDERED: (Novolin R) Insulin Human Regular 100 units/ml vial ONE (18:51)
[2018-04-10] MEDS ORDERED: Sodium Chloride 0.45% 500ml 1,000 ML IV ONE (19:11)
[2018-04-10 20:47] LABS: BLOOD UREA NITROGEN 10 mg/dL (9-20); GFR NON-AFRICAN AMERICAN > 60
--- NOTE | 2018-04-10 23:22 | CP.PCM.HP ---
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) - RENAL Hx Chronic Kidney Disease: No - ENDOCRINE/METABOLIC Hx Endocrine Disorders: Yes Hx Diabetes Mellitus Type 1: Yes (insulin dependent) - HEMATOLOGICAL/ONCOLOGICAL Hx Human Immunodeficiency Virus (HIV): No - INTEGUMENTARY Hx Dermatological Problems: No - MUSCULOSKELETAL/RHEUMATOLOGICAL Hx Falls: No - GASTROINTESTINAL Hx Crohn's Disease: Yes - GENITOURINARY/GYNECOLOGICAL Hx Genitourinary Disorders: No - PSYCHIATRIC Hx Anxiety: Yes Hx Bipolar Disorder: Yes Hx Depression: Yes Hx Schizophrenia: Yes Hx Substance Use: No - SURGICAL HISTORY Hx Surgeries: Yes Other/Comment: wired Jaw-As per patient today 04/10/2018, he has had rectal surgery x 2.and facial surgery. - ANESTHESIA Hx Anesthesia: Yes Hx Anesthesia Reactions: No Hx Malignant Hyperthermia: No Meds Allergies/Adverse Reactions: Allergies Allergy/AdvReac Type Severity Reaction Status Date / Time No Known Allergies Allergy Verified 04/10/18 17:22 Results - Vital Signs Recent Vital Signs: Last Vital Signs Temp 98.1 F 04/10/18 22:28 Pulse 75 04/10/18 22:28 Resp 20 04/10/18 22:28 BP 112/83 04/10/18 22:28 Pulse Ox 100 04/10/18 22:28 - Labs Result Diagrams: 04/10/18 17:38 04/10/18 20:31 Labs: Laboratory Results - last 24 hr 04/10/18 04/10/18 04/10/18 17:12 17:38 17:38 WBC 5.8 RBC 4.53 Hgb 13.2 Hct 40.2 MCV 88.7 MCH 29.2 MCHC 32.9 L RDW 14.2 Plt Count 192 MPV 9.6 Neut % (Auto) 63.8 Lymph % (Auto) 23.2 [place] % (Auto) 10.0 Eos % (Auto) 2.0 Baso % (Auto) 1.0 Neut # (Auto) 3.7 Lymph # (Auto) 1.4 [place] # (Auto) 0.6 Eos # (Auto) 0.1 Baso # (Auto) 0.1 pO2 VBG pH VBG pCO2 VBG HCO3 VBG Total CO2 VBG O2 Sat (Calc) VBG Base Excess VBG Potassium Glucose Lactate FiO2 Crit Value Called To Crit Value Called By Crit Value Read Back Blood Gas Notified Time Sodium 131 L Potassium 3.9 Chloride 94 L Carbon Dioxide 22 Anion Gap 19 BUN 12 Creatinine 0.8 Est GFR ( Amer) > 60 Est GFR (Non-Af Amer) > 60 POC Glucose (mg/dL) > 500 H* Random Glucose 688 H* D Calcium 8.7 Total Bilirubin 0.4 AST 119 H D ALT 103 H D Alkaline Phosphatase 213 H D Total Protein 6.8 Albumin 4.1 Globulin 2.7 Albumin/Globulin Ratio 1.5 Venous Blood Potassium B-Hydroxybutyrate 0.15 04/10/18 04/10/18 04/10/18 18:00 20:31 22:27 WBC RBC Hgb Hct MCV MCH MCHC RDW Plt Count MPV Neut % (Auto) Lymph % (Auto) [place] % (Auto) Eos % (Auto) Baso % (Auto) Neut # (Auto) Lymph # (Auto) [place] # (Auto) Eos # (Auto) Baso # (Auto) pO2 23 L VBG pH 7.33 VBG pCO2 49 VBG HCO3 22.7 VBG Total CO2 27.3 VBG O2 Sat (Calc) 48.6 VBG Base Excess -0.7 L VBG Potassium 3.4 L Glucose 605 H* Lactate 2.6 H FiO2 21.0 Crit Value Called To Dr stubbs Crit Value Called By [facility] Crit Value Read Back Y Blood Gas Notified Time 1805 Sodium 133.0 137 Potassium 3.5 L Chloride 97.0 L 102 Carbon Dioxide 24 Anion Gap 15 BUN 10 Creatinine 0.6 L Est GFR ( Amer) > 60 Est GFR (Non-Af Amer) > 60 POC Glucose (mg/dL) 340 H Random Glucose 267 H Calcium 8.0 L Total Bilirubin AST ALT Alkaline Phosphatase Total Protein Albumin Globulin Albumin/Globulin Ratio Venous Blood Potassium 3.4 L B-Hydroxybutyrate
[2018-04-10 23:30] VITALS: O2SAT 98
[2018-04-10] MEDS ORDERED: (Lantus) Insulin Glargine, Recombinant SC SCH (23:30)
[2018-04-11] MEDS ORDERED: Potassium Chloride 20 mEq ER Tab PO STA (00:41)
[2018-04-11 01:43] LABS: BLOOD UREA NITROGEN 10 mg/dL (9-20); CALCIUM 8.1 mg/dl (8.6-10.4); GFR NON-AFRICAN AMERICAN > 60
[2018-04-11] MEDS ORDERED: (Novolin R) Insulin Human Regular 100 units/ml vial SC ONE (01:54)
--- NOTE | 2018-04-11 04:43 | PN ---
Copied To: oRshan Loving MD Attending MD: Roshan Loving MD DATE: 04/10/2018 CHIEF COMPLAINT: Weakness. HISTORY OF PRESENT ILLNESS: This is a 27-year-old male with a history of type 1 diabetes for seven years and Crohn disease. For two days, he has been feeling nausea, vomiting, diarrhea, generalized weakness, tiredness, anorexia, malaise, and fatigue, nausea, vomiting, polyuria, polydipsia, and polyphagia. The patient is known for type 1 diabetes. He has been seen by Endocrinology. He has a primary care doctor, but he is not compliant. He is skipping his meals. He has prior history of diabetic ketoacidosis. Today when his sugar was checked , his sugar was 560. The patient denies any chest pain, cough, sore throat, or running nose. He has polyuria and polydipsia. He has tingling, numbness, and intense burning in bilateral lower extremities up to knee area. He denies any history of dysuria or hematuria. He denies any joint pain or hip pain. He has difficulty walking due to lack of sensation in the feet, and he is not compliant poorly as stated about his condition. There is no history of sore throat or runny nose. PAST MEDICAL HISTORY: Anxiety, Crohn disease, type 1 diabetes, diabetic severe peripheral neuropathy. SOCIAL HISTORY: Non smoker, non-EtOH user. CURRENT MEDICATIONS: He is supposed to be on Lantus 20 units at bedtime and Humalog 60 units three times a day before meals. PHYSICAL EXAMINATION: GENERAL: A young male, in no distress. He looks chronically sick and weak. VITAL SIGNS: BP 117/78, pulse 71, respiratory rate 19, temperature 98. SKIN: Has dry, poor turgor. Pale looking. HEENT: Atraumatic, normocephalic. Negative pallor. Negative jaundice. Extraocular movements are intact. NECK: Supple. No JVD. No lymph node. No thyromegaly. No carotid bruits. CHEST WALL: Bilateral symmetrical expansion. No deformity. LUNGS: Bilaterally clear. No rales. No rhonchi. CARDIOVASCULAR SYSTEM: S1, S2 are regular. No heave. No thrill. RECTAL: No mass. No bleed. EXTREMITIES: No clubbing, cyanosis, or edema. CENTRAL NERVOUS SYSTEM: Awake, alert, and oriented x3. Cranial nerves II-XII are normal. Power 5/5 x4. Plantars are downgoing. The patient has intense touch and vibration sense in the feet up to the knees. ASSESSMENT: 1. Uncontrolled diabetes, negative for diabetic ketoacidosis. 2. Dehydration. 3. Severe diabetic peripheral neuropathy. PLAN: Admit. Detailed orders written. Seen and examined. Roshan Loving MD
--- NOTE | 2018-04-11 06:58 | CP.PCM.CON ---
<Evangelista Gale - Last Filed: 04/11/18 08:21> History of Present Illness - History of Present Illness History of Present Illness: PGY-4 GI Fellow Consult Note Mr. Gonzalez is a 27 yo male with reported h/o Crohn's (diagnosed at 20 yo at another facility, small bowel involvement, not on meds, c/b skip-rectal abscess) , DM1 (A1c 15.20 Mar 2018), MJ and cocaine abuse, bipolar presenting with nausea/ vomiting and diarrhea. He states he was seeing a physician yesterday after he was reporting multiple episodes of N/V. Emesis was mostly of PO intake with "red chunks" reported, but patient stated he was eating red kidney beans. Denied melena. States that he has baseline 20-30 loose watery BMs daily, no increase lately. States that some of his recent stools were liquid red. He states that he has not been compliant with his insulin due to financial issues. Ultimately, he was sent into the ED by physician for reported concerns of DKA. 12 system ROS performed and negative except where stated. PMHx: See HPI PSHx: Denied FHx: Denied GI history Social: +regular Marijuana use, prior cocaine use, denies EtOH or tobacco use Endo: States he had 2 EGD and 2 colonoscopy in July - One EGD in our EMR from 07/30 showed LA Class C esophagitis, gastritis/duodenitis 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) - RENAL Hx Chronic Kidney Disease: No - ENDOCRINE/METABOLIC Hx Endocrine Disorders: Yes Hx Diabetes Mellitus Type 1: Yes (insulin dependent) - HEMATOLOGICAL/ONCOLOGICAL Hx Human Immunodeficiency Virus (HIV): No - INTEGUMENTARY Hx Dermatological Problems: No - MUSCULOSKELETAL/RHEUMATOLOGICAL Hx Falls: No - GASTROINTESTINAL Hx Crohn's Disease: Yes - GENITOURINARY/GYNECOLOGICAL Hx Genitourinary Disorders: No - PSYCHIATRIC Hx Substance Use: Yes (hx of cocaine/marijuana) - SURGICAL HISTORY Hx Surgeries: Yes Other/Comment: wired Jaw-As per patient today 04/10/2018, he has had rectal surgery x 2.and facial surgery. - ANESTHESIA Hx Anesthesia: Yes Hx Anesthesia Reactions: No Hx Malignant Hyperthermia: No Meds Allergies/Adverse Reactions: Allergies Allergy/AdvReac Type Severity Reaction Status Date / Time No Known Allergies Allergy Verified 04/10/18 17:22 - Medications Medications: Current Medications Gabapentin (Neurontin) 300 mg PO BID [facility] Last Admin: 04/11/18 00:23 Dose: 300 mg Sodium Chloride (Sodium Chloride 0.9%) 1,000 mls @ 100 mls/hr IV .Q10H [facility] Last Admin: 04/11/18 00:00 Dose: 100 mls/hr Insulin Aspart (Novolog) 0 unit SC ACHS [facility] PRN Reason: Protocol Insulin Aspart (Novolog) 12 unit SC AC [facility] Insulin Glargine (Lantus) 30 unit SC HS [facility] Morphine Sulfate (Morphine) 2 mg IM Q4 PRN PRN Reason: Pain, moderate (4-7) Last Admin: 04/11/18 06:46 Dose: 2 mg Ondansetron HCl (Zofran Inj) 4 mg IVP Q4 PRN PRN Reason: Nausea/Vomiting Pantoprazole Sodium (Protonix Inj) 40 mg IVP DAILY [facility] Physical Exam - Constitutional Appears: Well, No Acute Distress, Chronically Ill - Head Exam Head Exam: ATRAUMATIC, NORMAL INSPECTION - Eye Exam Eye Exam: EOMI. absent: Conjunctival injection, Scleral icterus - ENT Exam ENT Exam: Mucous Membranes Dry. absent: Mucous Membranes Moist Additional comments: Poor dentition - Respiratory Exam Respiratory Exam: Clear to Auscultation Bilateral, NORMAL BREATHING PATTERN. absent: Accessory Muscle Use, Wheezes - Cardiovascular Exam Cardiovascular Exam: REGULAR RHYTHM, RRR - GI/Abdominal Exam GI & Abdominal Exam: Normal Bowel Sounds, Soft, Tenderness (mildly in RLQ ( chronic per patient)). absent: Bruit, Diminished Bowel Sounds, Distended, Firm , Guarding, Hernia, Hyperactive Bowel Sounds, Hypoactive Bowel Sounds, Mass, Organomegaly, Pulsatile Mass, Rebound, Rigid - Rectal Exam Rectal Exam: NORMAL INSPECTION Additional comments: tender on insertion (baseline per patient), light brown stool on CHANEL - Extremities Exam Extremities exam: Positive for: normal inspection. Negative for: pedal edema - Neurological Exam Neurological exam: Alert, CN II-XII Intact, Oriented x3 - Psychiatric Exam Psychiatric exam: Normal Affect, Normal Mood - Skin Skin Exam: Dry, Normal Color, Warm Results - Vital Signs Recent Vital Signs: Last Vital Signs Temp 98 F 04/10/18 23:27 Pulse 71 04/10/18 23:27 Resp 19 04/10/18 23:27 BP 117/78 04/10/18 23:27 Pulse Ox 98 04/10/18 23:27 - Labs Result Diagrams: 04/11/18 07:25 04/11/18 07:25 Labs: Laboratory Results - last 24 hr 04/10/18 04/10/18 04/10/18 17:12 17:38 17:38 WBC 5.8 RBC 4.53 Hgb 13.2 Hct 40.2 MCV 88.7 MCH 29.2 MCHC 32.9 L RDW 14.2 Plt Count 192 MPV 9.6 Neut % (Auto) 63.8 Lymph % (Auto) 23.2 [place] % (Auto) 10.0 Eos % (Auto) 2.0 Baso % (Auto) 1.0 Neut # (Auto) 3.7 Lymph # (Auto) 1.4 [place] # (Auto) 0.6 Eos # (Auto) 0.1 Baso # (Auto) 0.1 pO2 VBG pH VBG pCO2 VBG HCO3 VBG Total CO2 VBG O2 Sat (Calc) VBG Base Excess VBG Potassium Glucose Lactate FiO2 Crit Value Called To Crit Value Called By Crit Value Read Back Blood Gas Notified Time Sodium 131 L Potassium 3.9 Chloride 94 L Carbon Dioxide 22 Anion Gap 19 BUN 12 Creatinine 0.8 Est GFR ( Amer) > 60 Est GFR (Non-Af Amer) > 60 POC Glucose (mg/dL) > 500 H* Random Glucose 688 H* D Calcium 8.7 Total Bilirubin 0.4 AST 119 H D ALT 103 H D Alkaline Phosphatase 213 H D Total Protein 6.8 Albumin 4.1 Globulin 2.7 Albumin/Globulin Ratio 1.5 Venous Blood Potassium B-Hydroxybutyrate 0.15 04/10/18 04/10/18 04/10/18 18:00 20:31 22:27 WBC RBC Hgb Hct MCV MCH MCHC RDW Plt Count MPV Neut % (Auto) Lymph % (Auto) [place] % (Auto) Eos % (Auto) Baso % (Auto) Neut # (Auto) Lymph # (Auto) [place] # (Auto) Eos # (Auto) Baso # (Auto) pO2 23 L VBG pH 7.33 VBG pCO2 49 VBG HCO3 22.7 VBG Total CO2 27.3 VBG O2 Sat (Calc) 48.6 VBG Base Excess -0.7 L VBG Potassium 3.4 L Glucose 605 H* Lactate 2.6 H FiO2 21.0 Crit Value Called To Dr stubbs Crit Value Called By [facility] Crit Value Read Back Y Blood Gas Notified Time 1805 Sodium 133.0 137 Potassium 3.5 L Chloride 97.0 L 102 Carbon Dioxide 24 Anion Gap 15 BUN 10 Creatinine 0.6 L Est GFR ( Amer) > 60 Est GFR (Non-Af Amer) > 60 POC Glucose (mg/dL) 340 H Random Glucose 267 H Calcium 8.0 L Total Bilirubin AST ALT Alkaline Phosphatase Total Protein Albumin Globulin Albumin/Globulin Ratio Venous Blood Potassium 3.4 L B-Hydroxybutyrate 04/11/18 01:20 WBC RBC Hgb Hct MCV MCH MCHC RDW Plt Count MPV Neut % (Auto) Lymph % (Auto) [place] % (Auto) Eos % (Auto) Baso % (Auto) Neut # (Auto) Lymph # (Auto) [place] # (Auto) Eos # (Auto) Baso # (Auto) pO2 VBG pH VBG pCO2 VBG HCO3 VBG Total CO2 VBG O2 Sat (Calc) VBG Base Excess VBG Potassium Glucose Lactate FiO2 Crit Value Called To Crit Value Called By Crit Value Read Back Blood Gas Notified Time Sodium 134 Potassium 4.5 Chloride 99 Carbon Dioxide 22 Anion Gap 17 BUN 10 Creatinine 0.6 L Est GFR ( Amer) > 60 Est GFR (Non-Af Amer) > 60 POC Glucose (mg/dL) Random Glucose 543 H* D Calcium 8.1 L Total Bilirubin AST ALT Alkaline Phosphatase Total Protein Albumin Globulin Albumin/Globulin Ratio Venous Blood Potassium B-Hydroxybutyrate Assessment & Plan - Assessment and Plan (Free Text) Assessment: 27 yo male with h/o Crohn's (not on therapy), poorly controlled DM1 presenting with N/V and diarrhea. # Nausea and Vomiting: Likely related to hyperglycemia, with BS as high as 688. Symptoms already improved some since admission. # Diarrhea, Crohn's: Untreated Crohn's likely etiology of persistent diarrhea. Pt states is at baseline. Rectal exam without any signs of bleed with light brown stool visualized. Pt with recent stool studies negative for infection; therefore, hold off for now. # Transamnitis: Perhaps related to untreated Crohn's. Has been intermittently this high in the past. Need f/u and trt of Crohn's. Plan: - Strict glycemic control - Supportive care - Encourage outpatient f/u with GI and Endo - Check viral hep - Will consider eval for PSC as outpatient once f/u established and monitor labs Pt seen and examined with Dr. Duran, see attestation for further recs/changes. Thank you for the consult. Will sign off, please page if questions. <Elidia Duran - Last Filed: 04/11/18 09:18> Meds - Medications Medications: Current Medications Enoxaparin Sodium (Lovenox) 40 mg SC DAILY [facility] Gabapentin (Neurontin) 300 mg PO BID [facility] Last Admin: 04/11/18 00:23 Dose: 300 mg Sodium Chloride (Sodium Chloride 0.9%) 1,000 mls @ 100 mls/hr IV .Q10H [facility] Last Admin: 04/11/18 00:00 Dose: 100 mls/hr Insulin Aspart (Novolog) 0 unit SC ACHS [facility] PRN Reason: Protocol Last Admin: 04/11/18 08:22 Dose: Not Given Insulin Aspart (Novolog) 12 unit SC AC [facility] Last Admin: 04/11/18 08:27 Dose: Not Given Insulin Glargine (Lantus) 30 unit SC HS [facility] Morphine Sulfate (Morphine) 2 mg IM Q4 PRN PRN Reason: Pain, moderate (4-7) Last Admin: 04/11/18 06:46 Dose: 2 mg Ondansetron HCl (Zofran Inj) 4 mg IVP Q4 PRN PRN Reason: Nausea/Vomiting Pantoprazole Sodium (Protonix Inj) 40 mg IVP DAILY [facility] Potassium Chloride (K-Dur 20 Meq Er Tab) 40 meq PO DAILY [facility] Stop: 04/12/18 10:01 Results - Vital Signs Recent Vital Signs: Last Vital Signs Temp 97.5 F L 04/11/18 07:49 Pulse 63 04/11/18 07:49 Resp 20 04/11/18 07:49 BP 103/72 04/11/18 07:49 Pulse Ox 98 04/11/18 07:49 - Labs Result Diagrams: 04/11/18 07:25 04/11/18 07:25 Labs: Laboratory Results - last 24 hr 04/10/18 04/10/18 04/10/18 17:12 17:38 17:38 WBC 5.8 RBC 4.53 Hgb 13.2 Hct 40.2 MCV 88.7 MCH 29.2 MCHC 32.9 L RDW 14.2 Plt Count 192 MPV 9.6 Neut % (Auto) 63.8 Lymph % (Auto) 23.2 [place] % (Auto) 10.0 Eos % (Auto) 2.0 Baso % (Auto) 1.0 Neut # (Auto) 3.7 Lymph # (Auto) 1.4 [place] # (Auto) 0.6 Eos # (Auto) 0.1 Baso # (Auto) 0.1 pO2 VBG pH VBG pCO2 VBG HCO3 VBG Total CO2 VBG O2 Sat (Calc) VBG Base Excess VBG Potassium Glucose Lactate FiO2 Crit Value Called To Crit Value Called By Crit Value Read Back Blood Gas Notified Time Sodium 131 L Potassium 3.9 Chloride 94 L Carbon Dioxide 22 Anion Gap 19 BUN 12 Creatinine 0.8 Est GFR ( Amer) > 60 Est GFR (Non-Af Amer) > 60 POC Glucose (mg/dL) > 500 H* Random Glucose 688 H* D Calcium 8.7 Magnesium Total Bilirubin 0.4 AST 119 H D ALT 103 H D Alkaline Phosphatase 213 H D Total Protein 6.8 Albumin 4.1 Globulin 2.7 Albumin/Globulin Ratio 1.5 Cortisol AM Sample Venous Blood Potassium B-Hydroxybutyrate 0.15 04/10/18 04/10/18 04/10/18 18:00 20:31 22:27 WBC RBC Hgb Hct MCV MCH MCHC RDW Plt Count MPV Neut % (Auto) Lymph % (Auto) [place] % (Auto) Eos % (Auto) Baso % (Auto) Neut # (Auto) Lymph # (Auto) [place] # (Auto) Eos # (Auto) Baso # (Auto) pO2 23 L VBG pH 7.33 VBG pCO2 49 VBG HCO3 22.7 VBG Total CO2 27.3 VBG O2 Sat (Calc) 48.6 VBG Base Excess -0.7 L VBG Potassium 3.4 L Glucose 605 H* Lactate 2.6 H FiO2 21.0 Crit Value Called To Dr stubbs Crit Value Called By [facility] Crit Value Read Back Y Blood Gas Notified Time 1805 Sodium 133.0 137 Potassium 3.5 L Chloride 97.0 L 102 Carbon Dioxide 24 Anion Gap 15 BUN 10 Creatinine 0.6 L Est GFR ( Amer) > 60 Est GFR (Non-Af Amer) > 60 POC Glucose (mg/dL) 340 H Random Glucose 267 H Calcium 8.0 L Magnesium Total Bilirubin AST ALT Alkaline Phosphatase Total Protein Albumin Globulin Albumin/Globulin Ratio Cortisol AM Sample Venous Blood Potassium 3.4 L B-Hydroxybutyrate 04/11/18 04/11/18 04/11/18 01:20 07:25 07:25 WBC 6.0 RBC 4.29 L Hgb 12.5 Hct 37.3 MCV 86.9 MCH 29.2 MCHC 33.7 RDW 14.4 Plt Count 189 MPV 9.2 Neut % (Auto) 50.8 Lymph % (Auto) 36.2 [place] % (Auto) 9.4 Eos % (Auto) 2.8 Baso % (Auto) 0.8 Neut # (Auto) 3.0 Lymph # (Auto) 2.2 [place] # (Auto) 0.6 Eos # (Auto) 0.2 Baso # (Auto) 0.0 pO2 VBG pH VBG pCO2 VBG HCO3 VBG Total CO2 VBG O2 Sat (Calc) VBG Base Excess VBG Potassium Glucose Lactate FiO2 Crit Value Called To Crit Value Called By Crit Value Read Back Blood Gas Notified Time Sodium 134 Potassium 4.5 Chloride 99 Carbon Dioxide 22 Anion Gap 17 BUN 10 Creatinine 0.6 L Est GFR ( Amer) > 60 Est GFR (Non-Af Amer) > 60 POC Glucose (mg/dL) Random Glucose 543 H* D Calcium 8.1 L Magnesium Total Bilirubin AST ALT Alkaline Phosphatase Total Protein Albumin Globulin Albumin/Globulin Ratio Cortisol AM Sample 10.0 Venous Blood Potassium B-Hydroxybutyrate 04/11/18 07:25 WBC RBC Hgb Hct MCV MCH MCHC RDW Plt Count MPV Neut % (Auto) Lymph % (Auto) [place] % (Auto) Eos % (Auto) Baso % (Auto) Neut # (Auto) Lymph # (Auto) [place] # (Auto) Eos # (Auto) Baso # (Auto) pO2 VBG pH VBG pCO2 VBG HCO3 VBG Total CO2 VBG O2 Sat (Calc) VBG Base Excess VBG Potassium Glucose Lactate FiO2 Crit Value Called To Crit Value Called By Crit Value Read Back Blood Gas Notified Time Sodium 139 Potassium 3.4 L Chloride 104 Carbon Dioxide 29 Anion Gap 10 BUN 10 Creatinine 0.5 L Est GFR ( Amer) > 60 Est GFR (Non-Af Amer) > 60 POC Glucose (mg/dL) Random Glucose 89 Calcium 8.5 L Magnesium 2.0 Total Bilirubin 0.4 AST 43 ALT 80 H D Alkaline Phosphatase 90 Total Protein 5.9 L Albumin 3.4 L Globulin 2.5 Albumin/Globulin Ratio 1.3 Cortisol AM Sample Venous Blood Potassium B-Hydroxybutyrate Attending/Attestation - Attestation I have personally seen and examined this patient.: Yes I have fully participated in the care of the patient.: Yes I have reviewed all pertinent clinical information: Yes Notes (Text): 04/11/18 09:17 Patient seen at bedside. This is a 27 year old male with PMHx significant for Crohn's disease (dx at age 20, not on any therapy presently or previously), Type 1 diabetes mellitus, Bipolar disorder, schizophrenia, marijuana/cocaine use who presented to the ED with uncontrolled DM and abdominal pain likely secondary to gastroparesis. On examination no unremarkable features. Tolerating diet. Would benefit from outpatient follow up with his primary shovel mechanic to initiate maintenance therapy for CD. Will sign off as no further GI work up required as inpatient
[2018-04-11] MEDS ORDERED: (Novolog) Insulin Aspart, Recombinant 100 u/ml 10 ml vial SC SCH ×2 (07:30→10:00)
[2018-04-11 07:43] LABS: BASO % 0.8 % (0.0-2.0); EOS # 0.2 K/uL (0.0-0.7); EOS % 2.8 % (0.0-4.0); HEMOGLOBIN 12.5 g/dL (12.0-18.0); LYMPH # 2.2 K/uL (1.0-4.3); LYMPH % 36.2 % (20.0-40.0); MEAN CELL VOLUME 86.9 fL (80.0-94.0); MEAN CORPUSCULAR HEMOGLOBIN 29.2 pg (27.0-31.0); MEAN CORPUSCULAR HGB CONC 33.7 g/dL (33.0-37.0); MEAN PLATELET VOLUME 9.2 fL (7.2-11.7); MONO # 0.6 K/uL (0.0-0.8); MONO % 9.4 % (0.0-10.0); NEUT % 50.8 % (50.0-75.0); NRBC % 0.1 % (0.0-2.0); RBC 4.29 Mil/uL (4.40-5.90); RED CELL DISTRIBUTION WIDTH 14.4 % (11.5-14.5)
[2018-04-11 07:50] VITALS: RESP 20
[2018-04-11 07:57] LABS: ALB/GLOB RATIO 1.3 (1.0-2.1); ALBUMIN 3.4 g/dL (3.5-5.0); ALT/SGPT 80 U/L (21-72); AST/SGOT 43 U/L (17-59); BLOOD UREA NITROGEN 10 mg/dL (9-20); CALCIUM 8.5 mg/dl (8.6-10.4); GFR NON-AFRICAN AMERICAN > 60
[2018-04-11] MEDS: (Novolog) Insulin Aspart, Recombinant 100 u/ml 10 ml vial SC SCH ×4 (08:22→11:56)
[2018-04-11] MEDS: Sodium Chloride 0.9% 1,000 ML IV SCH ×2 (09:57)
[2018-04-11] MEDS ORDERED: Potassium Chloride 20 mEq ER Tab PO SCH (10:00)
[2018-04-11] MEDS ORDERED: Enoxaparin 40 mg Syringe SC SCH (10:00)
--- NOTE | 2018-04-11 11:10 | CP.PCM.CON ---
History of Present Illness - History of Present Illness History of Present Illness: Podiatry Consult note for Dr. Cuevas 27M with PMH type I diabetes, Chron's disease, and anxiety seen and evaluated at bedside after being admitted for incident of DKA. Patient states that his toenails are painful and elongated and that he regularly experiences episodes of sharp, shooting, electrical pains traveling up and down his legs but that at baseline his legs are numb. He also states that in the past he has tried to cut his own toenails and cut himself because he could not feel what he was doing. He would like his toenails cut at this time. He is AAO x 3 and NAD at time of visit. He states that he does not regularly see a yarn comber. He denies any further pedal complaints at this time. 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) - RENAL Hx Chronic Kidney Disease: No - ENDOCRINE/METABOLIC Hx Endocrine Disorders: Yes Hx Diabetes Mellitus Type 1: Yes (insulin dependent) - HEMATOLOGICAL/ONCOLOGICAL Hx Human Immunodeficiency Virus (HIV): No - INTEGUMENTARY Hx Dermatological Problems: No - MUSCULOSKELETAL/RHEUMATOLOGICAL Hx Falls: No - GASTROINTESTINAL Hx Crohn's Disease: Yes - GENITOURINARY/GYNECOLOGICAL Hx Genitourinary Disorders: No - PSYCHIATRIC Hx Substance Use: Yes (hx of cocaine/marijuana) - SURGICAL HISTORY Hx Surgeries: Yes Other/Comment: wired Jaw-As per patient today 04/10/2018, he has had rectal surgery x 2.and facial surgery. - ANESTHESIA Hx Anesthesia: Yes Hx Anesthesia Reactions: No Hx Malignant Hyperthermia: No Meds Allergies/Adverse Reactions: Allergies Allergy/AdvReac Type Severity Reaction Status Date / Time No Known Allergies Allergy Verified 04/10/18 17:22 - Medications Medications: Current Medications Enoxaparin Sodium (Lovenox) 40 mg SC DAILY [facility] Last Admin: 04/11/18 09:39 Dose: 40 mg Gabapentin (Neurontin) 300 mg PO BID [facility] Last Admin: 04/11/18 09:39 Dose: 300 mg Sodium Chloride (Sodium Chloride 0.9%) 1,000 mls @ 100 mls/hr IV .Q10H [facility] Last Admin: 04/11/18 09:57 Dose: 100 mls/hr Insulin Aspart (Novolog) 0 unit SC ACHS [facility] PRN Reason: Protocol Last Admin: 04/11/18 08:22 Dose: Not Given Insulin Aspart (Novolog) 12 unit SC AC [facility] Last Admin: 04/11/18 08:27 Dose: Not Given Insulin Glargine (Lantus) 30 unit SC HS [facility] Ketoconazole (Nizoral) 0 gm TOP BID [facility] Morphine Sulfate (Morphine) 2 mg IM Q4 PRN PRN Reason: Pain, moderate (4-7) Last Admin: 04/11/18 06:46 Dose: 2 mg Ondansetron HCl (Zofran Inj) 4 mg IVP Q4 PRN PRN Reason: Nausea/Vomiting Pantoprazole Sodium (Protonix Inj) 40 mg IVP DAILY [facility] Last Admin: 04/11/18 09:39 Dose: 40 mg Potassium Chloride (K-Dur 20 Meq Er Tab) 40 meq PO DAILY [facility] Stop: 04/12/18 10:01 Last Admin: 04/11/18 09:39 Dose: 40 meq Physical Exam - Constitutional Appears: Well, Non-toxic, No Acute Distress - Extremities Exam Additional comments: B/l LE focused exam: Vasc: DP/PT pulses fully palpable 2/4 b/l. Skin temperature warm to warm WNL from proximal to distal. CFT < 3 seconds to all digits b/l. No edema noted b/l Neuro: Epicritic and protectice sensation grossly absent from midfoot to distal toes b/l and grossly diminished from knees to midfoot b/l Derm: Nails 1-5 b/l noted to be elongated, dystrophic, thickened and discolored. Hypertrophic, xerotic skin noted to toes 1-5 b/l. No open lesions, wounds, maceration, abnormal pigmentation or abnormal growths noted. MSK: Tenderness on palpation to all nails b/l. MMT 5/5 in all major muscle groups. ROM WNL at all major joints b/l. No gross deformities noted at this time - Neurological Exam Neurological exam: Alert, Oriented x3 - Psychiatric Exam Psychiatric exam: Normal Affect, Normal Mood Results - Vital Signs Recent Vital Signs: Last Vital Signs Temp 97.5 F L 04/11/18 07:49 Pulse 63 04/11/18 07:49 Resp 20 04/11/18 07:49 BP 103/72 04/11/18 07:49 Pulse Ox 98 04/11/18 07:49 - Labs Result Diagrams: 04/11/18 07:25 04/11/18 07:25 Labs: Laboratory Results - last 24 hr 04/10/18 04/10/18 04/10/18 17:12 17:38 17:38 WBC 5.8 RBC 4.53 Hgb 13.2 Hct 40.2 MCV 88.7 MCH 29.2 MCHC 32.9 L RDW 14.2 Plt Count 192 MPV 9.6 Neut % (Auto) 63.8 Lymph % (Auto) 23.2 [place] % (Auto) 10.0 Eos % (Auto) 2.0 Baso % (Auto) 1.0 Neut # (Auto) 3.7 Lymph # (Auto) 1.4 [place] # (Auto) 0.6 Eos # (Auto) 0.1 Baso # (Auto) 0.1 pO2 VBG pH VBG pCO2 VBG HCO3 VBG Total CO2 VBG O2 Sat (Calc) VBG Base Excess VBG Potassium Glucose Lactate FiO2 Crit Value Called To Crit Value Called By Crit Value Read Back Blood Gas Notified Time Sodium 131 L Potassium 3.9 Chloride 94 L Carbon Dioxide 22 Anion Gap 19 BUN 12 Creatinine 0.8 Est GFR ( Amer) > 60 Est GFR (Non-Af Amer) > 60 POC Glucose (mg/dL) > 500 H* Random Glucose 688 H* D Calcium 8.7 Magnesium Total Bilirubin 0.4 AST 119 H D ALT 103 H D Alkaline Phosphatase 213 H D Total Protein 6.8 Albumin 4.1 Globulin 2.7 Albumin/Globulin Ratio 1.5 Cortisol AM Sample Venous Blood Potassium B-Hydroxybutyrate 0.15 04/10/18 04/10/18 04/10/18 18:00 20:31 22:27 WBC RBC Hgb Hct MCV MCH MCHC RDW Plt Count MPV Neut % (Auto) Lymph % (Auto) [place] % (Auto) Eos % (Auto) Baso % (Auto) Neut # (Auto) Lymph # (Auto) [place] # (Auto) Eos # (Auto) Baso # (Auto) pO2 23 L VBG pH 7.33 VBG pCO2 49 VBG HCO3 22.7 VBG Total CO2 27.3 VBG O2 Sat (Calc) 48.6 VBG Base Excess -0.7 L VBG Potassium 3.4 L Glucose 605 H* Lactate 2.6 H FiO2 21.0 Crit Value Called To Dr stubbs Crit Value Called By [facility] Crit Value Read Back Y Blood Gas Notified Time 1805 Sodium 133.0 137 Potassium 3.5 L Chloride 97.0 L 102 Carbon Dioxide 24 Anion Gap 15 BUN 10 Creatinine 0.6 L Est GFR ( Amer) > 60 Est GFR (Non-Af Amer) > 60 POC Glucose (mg/dL) 340 H Random Glucose 267 H Calcium 8.0 L Magnesium Total Bilirubin AST ALT Alkaline Phosphatase Total Protein Albumin Globulin Albumin/Globulin Ratio Cortisol AM Sample Venous Blood Potassium 3.4 L B-Hydroxybutyrate 04/11/18 04/11/18 04/11/18 01:20 07:25 07:25 WBC 6.0 RBC 4.29 L Hgb 12.5 Hct 37.3 MCV 86.9 MCH 29.2 MCHC 33.7 RDW 14.4 Plt Count 189 MPV 9.2 Neut % (Auto) 50.8 Lymph % (Auto) 36.2 [place] % (Auto) 9.4 Eos % (Auto) 2.8 Baso % (Auto) 0.8 Neut # (Auto) 3.0 Lymph # (Auto) 2.2 [place] # (Auto) 0.6 Eos # (Auto) 0.2 Baso # (Auto) 0.0 pO2 VBG pH VBG pCO2 VBG HCO3 VBG Total CO2 VBG O2 Sat (Calc) VBG Base Excess VBG Potassium Glucose Lactate FiO2 Crit Value Called To Crit Value Called By Crit Value Read Back Blood Gas Notified Time Sodium 134 Potassium 4.5 Chloride 99 Carbon Dioxide 22 Anion Gap 17 BUN 10 Creatinine 0.6 L Est GFR ( Amer) > 60 Est GFR (Non-Af Amer) > 60 POC Glucose (mg/dL) Random Glucose 543 H* D Calcium 8.1 L Magnesium Total Bilirubin AST ALT Alkaline Phosphatase Total Protein Albumin Globulin Albumin/Globulin Ratio Cortisol AM Sample 10.0 Venous Blood Potassium B-Hydroxybutyrate 04/11/18 07:25 WBC RBC Hgb Hct MCV MCH MCHC RDW Plt Count MPV Neut % (Auto) Lymph % (Auto) [place] % (Auto) Eos % (Auto) Baso % (Auto) Neut # (Auto) Lymph # (Auto) [place] # (Auto) Eos # (Auto) Baso # (Auto) pO2 VBG pH VBG pCO2 VBG HCO3 VBG Total CO2 VBG O2 Sat (Calc) VBG Base Excess VBG Potassium Glucose Lactate FiO2 Crit Value Called To Crit Value Called By Crit Value Read Back Blood Gas Notified Time Sodium 139 Potassium 3.4 L Chloride 104 Carbon Dioxide 29 Anion Gap 10 BUN 10 Creatinine 0.5 L Est GFR ( Amer) > 60 Est GFR (Non-Af Amer) > 60 POC Glucose (mg/dL) Random Glucose 89 Calcium 8.5 L Magnesium 2.0 Total Bilirubin 0.4 AST 43 ALT 80 H D Alkaline Phosphatase 90 Total Protein 5.9 L Albumin 3.4 L Globulin 2.5 Albumin/Globulin Ratio 1.3 Cortisol AM Sample Venous Blood Potassium B-Hydroxybutyrate Assessment & Plan - Assessment and Plan (Free Text) Assessment: 27M seen at bedside for elongated, thickened, dystrophic, painful toenails 1-5 b /l and severe lower extremity neuropathy b/l Plan: Patient seen and evaluated Plan discussed with Dr. Cuevas Afebrile, absent leukocytosis Glucose: 89 mg/dL Continue Gabapentin and Morphine per primary team No dressing applied at this time Will debride patient's toenails in morning Ketoconazole cream ordered - Will apply in morning Podiatry will continue to follow while patient in house - Date & Time Date: 04/11/18 Time: 11:16
--- NOTE | 2018-04-11 11:34 | CON ---
Copied To: Kayce Kaplan MD Attending MD: Kayce Kaplan MD DATE: 04/10/2018 ENDOCRINOLOGY CONSULT LOCATION: In room 368. HISTORY OF PRESENT ILLNESS: This is a 27-year-old male with known history of type 1 insulin-dependent diabetes, presenting here with progressively worsening nausea, dyspepsia, and supervening vomiting and diarrhea with underlying Crohn disease and is now being referred for diabetic evaluation because of marked hyperglycemic accelerations as noted thereof. PAST MEDICAL HISTORY: History of type 1 insulin-dependent diabetes, currently on a combination of Lantus given as 20 units at bedtime with Humalog given at a variable dose of 10 to 20 units with meals. History of diabetic retinopathy and is actually legally blind. History of diabetic polyneuropathy. Also history of longstanding Crohn disease with multiple readmissions for exacerbations of the same. History of schizoaffective disorder with schizophrenia and episodic bouts of anxiety and depression. He is currently on psychotropic medications. FAMILY HISTORY: Positive for diabetes and hypertension. SOCIAL HISTORY: The patient has supportive family. No known substance used. REVIEW OF SYSTEMS: As mentioned above, admits to generalized body weakness with progressive bouts of dizziness and lightheadedness with easy fatigability and tiredness. Also admits to recent visual blurring and bifrontal headache. No chest pains or palpitations. His oral intake has been variable with nausea, dyspepsia, and supervening intractable vomiting and diarrhea over the last two to three days prior to admission. PHYSICAL EXAMINATION: GENERAL: This is a male, in no apparent distress. VITAL SIGNS: With a blood pressure of 140/80, pulse of 100 beats per minute and regular, temperature 98, respirations 20. Height is 5 feet 7 inches. Weight is 132 pounds. HEENT: Head is normocephalic. Eyes are anicteric with pink conjunctivae. Funduscopy not possible at this time. Ears, nose, and throat otherwise normal. NECK: Supple. Thyroid gland is normal in size. No carotid bruits or cervical adenopathy. CARDIOPULMONARY: Adynamic precordium. S1 and S2 is rapid and regular. LUNGS: Clear to auscultation. ABDOMEN: Flat, soft with positive bowel sounds. EXTREMITIES: No peripheral edema. Pulses are +2 bilaterally. LABORATORY DATA: His chemistry showed a BUN initially of 12, sodium 131, potassium 3.9, chloride 94, CO2 of 22, glucose 688, and creatinine 0.8. His liver transaminases are elevated. Calcium is 8, albumin is 4.1. ASSESSMENT: This is a 27-year-old male with uncontrolled and decompensated type 1 insulin-dependent diabetes with marked hyperglycemic accelerations and spurious hyponatremia related to the increased osmotic diuresis thereof. 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 Moreover, he also has Crohn disease with multiple readmissions for exacerbations of the same. PLAN OF MANAGEMENT: We will start him with a more physiologic basal and bolus insulin drug combination and he has already been started on the combination of Lantus given as 20 units at bedtime, which will be increased to 30 units at bedtime as ordered. We will also modify the coverage scale to obviate hypoglycemia and detailed orders have been given. We will continue the Novolog given as 16 units t.i.d. before meals as ordered. We will continue the vigorous IV hydration as given to replenish the lost fluids and electrolytes, especially with increased osmotic diuresis thereof with concomitant intractable vomiting and diarrhea as mentioned. We will obtain serial chemistries and supplement accordingly as needed. We will obtain a hemoglobin A1c to confirm his prior glycemic control and baseline thyroid function studies and a serum cortisol and ACTH level will be obtained to screen for any underlying autoimmune disorders, which is quite common in patients with type 1 diabetes. We will follow and advise accordingly. Kayce Kaplan MD
[2018-04-11 12:35] LABS: HEPATITIS B SURFACE AG Negative (NEGATIVE)
[2018-04-11 12:41] LABS: HEPATITIS A IGM NEGATIVE (NEGATIVE); HEPATITIS B CORE AB NEGATIVE (NEGATIVE)
[2018-04-11 12:53] LABS: HEPATITIS C ANTIBODY NEGATIVE (NEGATIVE)
--- NOTE | 2018-04-11 16:11 | CP.PCM.PN ---
Subjective - Date & Time of Evaluation Date of Evaluation: 04/11/18 Time of Evaluation: 11:20 - Subjective Subjective: Patient seen today, denies any N/V tolerating diet, c/o diarrhea, 4-5 today BS controlled and stable below 100's Objective - Vital Signs/Intake and Output Vital Signs (last 24 hours): Temp Pulse Resp BP Pulse Ox 97.5 F L 63 20 103/72 98 04/11/18 07:49 04/11/18 07:49 04/11/18 07:49 04/11/18 07:49 04/11/18 07:49 Intake and Output: 04/11/18 04/11/18 06:59 18:59 Intake Total 860 Balance 860 - Medications Medications: Current Medications Enoxaparin Sodium (Lovenox) 40 mg SC DAILY [facility] Last Admin: 04/11/18 09:39 Dose: 40 mg Gabapentin (Neurontin) 300 mg PO BID [facility] Last Admin: 04/11/18 09:39 Dose: 300 mg Sodium Chloride (Sodium Chloride 0.9%) 1,000 mls @ 100 mls/hr IV .Q10H [facility] Last Admin: 04/11/18 09:57 Dose: 100 mls/hr Insulin Aspart (Novolog) 0 unit SC ACHS JOHANA PRN Reason: Protocol Last Admin: 04/11/18 11:55 Dose: Not Given Insulin Aspart (Novolog) 12 unit SC AC [facility] Last Admin: 04/11/18 11:56 Dose: Not Given Insulin Glargine (Lantus) 30 unit SC HS [facility] Ketoconazole (Nizoral) 0 gm TOP BID [facility] Morphine Sulfate (Morphine) 2 mg IM Q4 PRN PRN Reason: Pain, moderate (4-7) Last Admin: 04/11/18 11:50 Dose: 2 mg Ondansetron HCl (Zofran Inj) 4 mg IVP Q4 PRN PRN Reason: Nausea/Vomiting Pantoprazole Sodium (Protonix Inj) 40 mg IVP DAILY [facility] Last Admin: 04/11/18 09:39 Dose: 40 mg Potassium Chloride (K-Dur 20 Meq Er Tab) 40 meq PO DAILY [facility] Stop: 04/12/18 10:01 Last Admin: 04/11/18 09:39 Dose: 40 meq - Labs Labs: 04/11/18 07:25 04/11/18 07:25 Assessment and Plan - Assessment and Plan (Free Text) Assessment: A/P 27 y/o male with PMHx of DM and Crohns presents with 2 day history of nausea, vomiting, and diarrhea. Patient was at Dr. Liz , office and found FS > 500 and was sent to the ER for evaluation and admitted with Hyperglycemia, Diarrhea, Abdominal pain Patient clinically improved with IVF and insulin bs controlled and stable GI consulted for chrons disease, recommends out patient f/u today labs reviewed -mild hypokalemia and K replaced , AST/ALT- trending down D/w Dr. Loving, cleared for discharge home today and f/u wiht Dr. Loving office in 1 week RX given for lantus and patient stated he has humalog at home for 1 month supply Patient instructed to return to ED if symptoms returns or any other concerning symptoms
[2018-04-11 16:21] VITALS: BP 112/73; PULSE 80; TEMP 98.4
--- NOTE | 2018-04-11 20:01 | PN ---
Copied To: Kayce Kaplan MD Attending MD: Kayce Kaplan MD DATE: 04/11/2018 ENDO FOLLOWUP NOTE. LOCATION: In room 368. SUBJECTIVE: This is a 27-year-old male with recent uncontrolled type 1 insulin-dependent diabetes, presenting here with marked hyperglycemic accelerations and is now being followed closely for metabolic management. His glycemic levels are fluctuating with extremes of glycemic fluctuations because of the variables of his oral intake. LABORATORY DATA: His chemistries today showed the BUN of 10, sodium 139, potassium 3.4, chloride 104, CO2 of 29, glucose 89, and creatinine 0.5. The glucose was 543 at 01:00 this morning as undertaken and it was 340 at bedtime last night. 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 PLAN OF MANAGEMENT: We will initiate the basal and bolus insulin drug combination to optimize metabolic control. Since his oral intake is variable with suboptimal meal portions, we will hold off those adjustments at this time and keep him on the NovoLog given as 12 units subcu t.i.d. before meals to start today. We will also continue the basal insulin given as Lantus at 30 units subcu at bedtime daily as given. We will titrate incrementally as indicated to optimize metabolic control. We will follow and advise accordingly. Kayce Kaplan MD
--- NOTE | 2018-04-11 20:44 | CP.PCM.DIS ---
Provider - Provider Date of Admission: 04/10/18 21:09 Attending physician: Roshan Loving MD Hospital Course - Lab Results Lab Results: Most Recent Lab Values WBC 6.0 K/uL (4.8-10.8) 04/11/18 07:25 RBC 4.29 Mil/uL (4.40-5.90) L 04/11/18 07:25 Hgb 12.5 g/dL (12.0-18.0) 04/11/18 07:25 Hct 37.3 % (35.0-51.0) 04/11/18 07:25 MCV 86.9 fL (80.0-94.0) 04/11/18 07: MCH 29.2 pg (27.0-31.0) 04/11/18 07: MCHC 33.7 g/dL (33.0-37.0) 04/11/18 07:25 RDW 14.4 % (11.5-14.5) 04/11/18 07:25 Plt Count 189 K/uL (130-400) 04/11/18 07:25 MPV 9.2 fL (7.2-11.7) 04/11/18 07:25 Neut % (Auto) 50.8 % (50.0-75.0) 04/11/18 07:25 Lymph % (Auto) 36.2 % (20.0-40.0) 04/11/18 07:25 [place] % (Auto) 9.4 % (0.0-10.0) 04/11/18 07:25 Eos % (Auto) 2.8 % (0.0-4.0) 04/11/18 07:25 Baso % (Auto) 0.8 % (0.0-2.0) 04/11/18 07:25 Neut # (Auto) 3.0 K/uL (1.8-7.0) 04/11/18 07:25 Lymph # (Auto) 2.2 K/uL (1.0-4.3) 04/11/18 07:25 [place] # (Auto) 0.6 K/uL (0.0-0.8) 04/11/18 07:25 Eos # (Auto) 0.2 K/uL (0.0-0.7) 04/11/18 07:25 Baso # (Auto) 0.0 K/uL (0.0-0.2) 04/11/18 07:25 pO2 23 mm/Hg (30-55) L 04/10/18 18:00 VBG pH 7.33 (7.32-7.43) 04/10/18 18:00 VBG pCO2 49 mmHg (40-60) 04/10/18 18:00 VBG HCO3 22.7 mmol/L 04/10/18 18:00 VBG Total CO2 27.3 mmol/L (22-28) 04/10/18 18:00 VBG O2 Sat (Calc) 48.6 % (40-65) 04/10/18 18:00 VBG Base Excess -0.7 mmol/L (0.0-2.0) L 04/10/18 18:00 VBG Potassium 3.4 mmol/L (3.6-5.2) L 04/10/18 18:00 Sodium 133.0 mmol/l (132-148) 04/10/18 18:00 Chloride 97.0 mmol/L (98-107) L 04/10/18 18:00 Glucose 605 mg/dl (75-110) H* 04/10/18 18:00 Lactate 2.6 mmol/L (0.7-2.1) H 04/10/18 18:00 FiO2 21.0 % 04/10/18 18:00 Crit Value Called To Dr stubbs 04/10/18 18:00 Crit Value Called By [facility] 04/10/18 18:00 Crit Value Read Back Y 04/10/18 18:00 Blood Gas Notified Time 1805 04/10/18 18:00 Sodium 139 mmol/L (132-148) 04/11/18 07:25 Potassium 3.4 mmol/L (3.6-5.2) L 04/11/18 07:25 Chloride 104 mmol/L (98-107) 04/11/18 07:25 Carbon Dioxide 29 mmol/L (22-30) 04/11/18 07:25 Anion Gap 10 (10-20) 04/11/18 07:25 BUN 10 mg/dL (9-20) 04/11/18 07:25 Creatinine 0.5 mg/dL (0.8-1.5) L 04/11/18 07:25 Est GFR ( Amer) > 60 04/11/18 07:25 Est GFR (Non-Af Amer) > 60 04/11/18 07:25 POC Glucose (mg/dL) 316 mg/dL (65-110) H 04/11/18 16:13 Random Glucose 89 mg/dL (75-110) 04/11/18 07:25 Calcium 8.5 mg/dl (8.6-10.4) L 04/11/18 07:25 Magnesium 2.0 mg/dL (1.6-2.3) 04/11/18 07:25 Total Bilirubin 0.4 mg/dL (0.2-1.3) 04/11/18 07:25 AST 43 U/L (17-59) 04/11/18 07:25 ALT 80 U/L (21-72) H D 04/11/18 07:25 Alkaline Phosphatase 90 U/L (38-126) 04/11/18 07:25 Total Protein 5.9 g/dL (6.3-8.3) L 04/11/18 07:25 Albumin 3.4 g/dL (3.5-5.0) L 04/11/18 07:25 Globulin 2.5 gm/dL (2.2-3.9) 04/11/18 07:25 Albumin/Globulin Ratio 1.3 (1.0-2.1) 04/11/18 07:25 Cortisol AM Sample 10.0 ug/dL (4.46-22.7) 04/11/18 07:25 Venous Blood Potassium 3.4 mmol/L (3.6-5.2) L 04/10/18 18:00 B-Hydroxybutyrate 0.15 mM (0.02-0.27) 04/10/18 17:38 Hepatitis A IgM Ab Negative (NEGATIVE) 04/11/18 11:42 Hep Bs Antigen Negative (NEGATIVE) 04/11/18 11:42 Hep B Core IgM Ab Negative (NEGATIVE) 04/11/18 11:42 Hepatitis C Antibody Negative (NEGATIVE) 04/11/18 11:42 Discharge Exam - Head Exam Head Exam: ATRAUMATIC, NORMAL INSPECTION Discharge Plan - Discharge Medications Prescriptions: Insulin Glargine, Recombina [Lantus] 20 unit SC HS 30 Days unit - Follow Up Plan Condition: STABLE Disposition: HOME/ ROUTINE Instructions: Diarrhea and Traveler's Diarrhea, Adult (DC), Hyperglycemia, Adult (DC), Diabetic Ketoacidosis (DC) Additional Instructions: Please f/u with Dr. Loving office in 1 week please f/u with GI doctor in 1 week( ref. alredy given to you by Dr. loving continue medication as per med. rec. Please check you blood sugar before each meal and record Referrals: Roshan Loving MD [Staff Provider] -
[2018-04-11] MEDS ORDERED: (Lantus) Insulin Glargine, Recombinant SC SCH (22:00)
--- NOTE | 2018-04-11 23:57 | CARD ---
APPROVED REPORT Date of service: 04/10/2018 EKG Measurement Heart [id number] <Conclusion> Normal sinus rhythm Right atrial enlargement Nonspecific T wave abnormality Abnormal ECG
--- NOTE | 2018-04-12 10:58 | DS ---
Copied To: Roshan Loving MD Attending MD: Roshan Loving MD HISTORY OF PRESENT ILLNESS: The patient is feeling better. Blood sugar is down. He is essentially noncompliant. No fever. No chills. PHYSICAL EXAMINATION: VITAL SIGNS: Blood pressure 120/76, pulse 80, respiratory rate 20, temperature 98.4. LUNGS: Clear. ABDOMEN: Soft. ASSESSMENT: 1. Uncontrolled diabetes. 2. Dehydration. 3. Crohn disease. PLAN: Discharge the patient. Outpatient followup with Endocrinology and GI as outpatient visits. Roshan Loving MD
== END 2018-04-11 17:05 | disposition home or self-care (01) | DRG 46 ==
LOC: C.ER 16:48 → C.9E 21:09 → C.3T 22:05
PROVIDERS: ADMIT Internal Medicine; ATTEND Internal Medicine
DX: E10.65 Type 1 diabetes mellitus with hyperglycemia (principal); E86.0 Dehydration; E87.6 Hypokalemia; E87.1 Hypo-osmolality and hyponatremia; E10.43 Type 1 diabetes mellitus with diabetic autonomic (poly)neuropathy; E10.42 Type 1 diabetes mellitus with diabetic polyneuropathy; E10.319 Type 1 diabetes mellitus with unspecified diabetic retinopathy without macular edema; E10.41 Type 1 diabetes mellitus with diabetic mononeuropathy; F12.90 Cannabis use, unspecified, uncomplicated; F31.9 Bipolar disorder, unspecified; H54.8 Legal blindness, as defined in USA; H91.90 Unspecified hearing loss, unspecified ear; I10 Essential (primary) hypertension; K31.84 Gastroparesis; Z79.4 Long term (current) use of insulin; Z91.14 Patient's other noncompliance with medication regimen; K50.90 Crohn's disease, unspecified, without complications

== ENCOUNTER 2018-05-04 21:03 | Inpatient (IN) | payer MEDICAID ==
[2018-05-04 21:03] VITALS: BMI 16.7
--- NOTE | 2018-05-04 21:24 | C.PDOC ---
History Of Present Illness 27 year old male with a PMHx of Diabetes Type 1 presents to the emergency department with complaints of high blood sugar. Patient states that recently he has been experiencing general malaise. Time Seen by Provider: 05/04/18 21:24 Chief Complaint (Nursing): High Blood Sugar History Per: Patient History/Exam Limitations: no limitations Severity: Moderate Pain Scale Rating Of: 4 Past Medical History Reviewed: Historical Data, Nursing Documentation, Vital Signs Vital Signs: Last Vital Signs Temp 98.6 F 05/04/18 21:18 Pulse 67 05/05/18 00:30 Resp 14 05/05/18 00:30 BP 142/78 05/05/18 00:30 Pulse Ox 98 05/05/18 00:30 - Medical History PMH: Anxiety, Bipolar Disorder, Crohn's Disease, Depression, Diabetes (Type 1), HTN, Schizophrenia Denies: HIV, Chronic Kidney Disease Surgical History: No Surg Hx - [facility] Procedures (07/21/17) (07/21/17) DRAINAGE OF ANUS, OPEN APPROACH (11/26/17) Family History: States: No Known Family Hx - Social History Hx Tobacco Use: No Hx Alcohol Use: No Hx Substance Use: Yes - Immunization History Hx Tetanus Toxoid Vaccination: Yes Hx Influenza Vaccination: Yes Hx Pneumococcal Vaccination: Yes Review Of Systems Constitutional: Positive for: Malaise. Negative for: Fever Gastrointestinal: Negative for: Abdominal Pain Physical Exam - Physical Exam Appears: Non-toxic, No Acute Distress Skin: Warm, Dry Head: Normacephalic Eye(s): bilateral: Normal Inspection, PERRL, EOMI Oral Mucosa: Moist Neck: Trachea Midline, Supple Chest: Symmetrical, No Tenderness Cardiovascular: Rhythm Regular, No Murmur Respiratory: No Rales, No Rhonchi, No Wheezing Gastrointestinal/Abdominal: Soft, No Tenderness, No Guarding, No Rebound Extremity: Normal ROM (all extremities) Pulses: Left Dorsalis Pedis: Normal, Right Dorsalis Pedis: Normal Neurological/Psych: Oriented x3, Normal Speech, Normal Cognition ED Course And Treatment - Laboratory Results Result Diagrams: 05/04/18 22:15 05/04/18 22:15 ECG: Interpreted By Me, Viewed By Me O2 Sat by Pulse Oximetry: 100 (RA) Pulse Ox Interpretation: Normal - Radiology CXR: Interpreted by Me, Viewed By Me CXR Interpretation: No: Infiltrates, Fracture, Pnemothorax Progress Note: Plan: VBG. CMP. Lipase. CBC. CXR. NaCl IV Fluids. Urinalysis. spoke with dr ziegler, will come and see the pt in the ed Critical Care Time - Critical Care Note Total Time (in mins): 30 Documented critical care: time excludes all time spent performing seperately billable procedures. Disposition Discussed With Dr.: Roshan Loving Comment: accepted the pt on his service and took over the care at 12:45 AM Doctor Will See Patient In The: Hospital Counseled Patient/Family Regarding: Studies Performed, Diagnosis - Disposition Disposition: HOSPITALIZED Disposition Time: 21:24 Condition: GUARDED Forms: [employer] (Yoruba) - POA Present On Arrival: Poor Glycemic Control - Clinical Impression Clinical Impression: HHNC (hyperglycemic hyperosmolar nonketotic coma), DM I (diabetes mellitus, type I), uncontrolled - Scribe Statement The provider has reviewed the documentation as recorded by the Scribe (Amilcar Hoffmann) Provider Attestation: All medical record entries made by the Scribe were at my direction and personally dictated by me. I have reviewed the chart and agree that the record accurately reflects my personal performance of the history, physical exam, medical decision making, and the department course for this patient. I have also personally directed, reviewed, and agree with the discharge instructions and disposition. Decision To Admit - Pt Status Changed To: Hospital Disposition Of: Inpatient - Admit Certification Admit to Inpatient:: After my assessment, the patient will require hospitalization for at least two midnights. This is because of the severity of symptoms shown, intensity of services needed, and/or the medical risk in this patient being treated as an outpatient. - InPatient: Physician Admission Certification: I certify that this patient requires 2 or more midnights of care for the following reason:: After my assessment, the patient will require hospitalization for at least two midnights. This is because of the severity of symptoms shown, intensity of services needed, and/or the medical risk in this patient being treated as an outpatient. - . Bed Request Type: ICU Admitting Physician: Roshan Loving Patient Diagnosis: HHNC (hyperglycemic hyperosmolar nonketotic coma), DM I (diabetes mellitus, type I), uncontrolled
[2018-05-04] MEDS ORDERED: Sodium Chloride 0.9% 2,000 ML IV ONE (21:33)
[2018-05-04 22:18] LABS: BASO # 0.1 K/uL (0.0-0.2); BASO % 1.3 % (0.0-2.0); EOS # 0.1 K/uL (0.0-0.7); EOS % 1.8 % (0.0-4.0); LYMPH # 1.2 K/uL (1.0-4.3); LYMPH % 22.8 % (20.0-40.0); MEAN CELL VOLUME 91.1 fL (80.0-94.0); MONO # 0.6 K/uL (0.0-0.8); MONO % 12.1 % (0.0-10.0); NEUT # 3.2 K/uL (1.8-7.0); RBC 4.67 Mil/uL (4.40-5.90); RED CELL DISTRIBUTION WIDTH 14.1 % (11.5-14.5); WHITE BLOOD COUNT 5.1 K/uL (4.8-10.8)
[2018-05-04 22:27] LABS: VENOUS BLOOD GAS BASE EXCESS -10.3 mmol/L (0.0-2.0); VENOUS BLOOD GAS PCO2 34 mmHg (40-60); VENOUS BLOOD GAS PO2 52 mm/Hg (30-55); VENOUS BLOOD PH 7.27 (7.32-7.43)
[2018-05-04 22:43] LABS: ALB/GLOB RATIO 1.5 (1.0-2.1); ALBUMIN 4.4 g/dL (3.5-5.0); ALT/SGPT 58 U/L (21-72); AST/SGOT 43 U/L (17-59); BLOOD UREA NITROGEN 16 mg/dL (9-20); CALCIUM 9.2 mg/dl (8.6-10.4); GFR NON-AFRICAN AMERICAN > 60; LIPASE 128 U/L (23-300)
[2018-05-04] MEDS ORDERED: (Novolin R) Insulin Human Regular 100 units/ml vial IVP STA (22:50)
[2018-05-04] MEDS ORDERED: Insulin Human Regular 100 UNIT in Sodium Chloride 0.9% 99 ML IV SCH (23:00)
[2018-05-04] MEDS ORDERED: (Novolin R) Insulin Human Regular 100 units/ml vial ONE (23:03)
[2018-05-05] MEDS ORDERED: Sodium Chloride 0.9% 1,000 ML IV ONE (00:08)
[2018-05-05] MEDS ORDERED: Dextrose 5%/0.45% NS 1,000 ML IV ONE (01:05)
--- NOTE | 2018-05-05 01:07 | CP.PCM.CON ---
History of Present Illness - History of Present Illness History of Present Illness: 27yo M. PMHx IDDM type 1, bipolar, schizophrenia, major depression, peripheral blindness both eyes, deaf in left ear, peripheral neuropathy, crohn's disease ( diarrhea dominant). patient has been having fevers lately, today presents with severe hyperglycemia despite taking his medications. Review of Systems - Review of Systems All systems: reviewed and no additional remarkable complaints except - Constitutional Constitutional: Fever 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) - RENAL Hx Chronic Kidney Disease: No - ENDOCRINE/METABOLIC Hx Endocrine Disorders: Yes Hx Diabetes Mellitus Type 1: Yes (insulin dependent) - HEMATOLOGICAL/ONCOLOGICAL Hx Human Immunodeficiency Virus (HIV): No - INTEGUMENTARY Hx Dermatological Problems: No - MUSCULOSKELETAL/RHEUMATOLOGICAL Hx Falls: No - GASTROINTESTINAL Hx Crohn's Disease: Yes - GENITOURINARY/GYNECOLOGICAL Hx Genitourinary Disorders: No - PSYCHIATRIC Hx Anxiety: Yes Hx Bipolar Disorder: Yes Hx Depression: Yes Hx Schizophrenia: Yes Hx Substance Use: Yes - SURGICAL HISTORY Hx Surgeries: Yes Other/Comment: wired Jaw-As per patient today 04/10/2018, he has had rectal surgery x 2.and facial surgery. - ANESTHESIA Hx Anesthesia: Yes Hx Anesthesia Reactions: No Hx Malignant Hyperthermia: No Meds Allergies/Adverse Reactions: Allergies Allergy/AdvReac Type Severity Reaction Status Date / Time No Known Allergies Allergy Verified 04/10/18 17:22 - Medications Medications: Current Medications Sodium Chloride (Sodium Chloride 0.9%) 1,000 mls @ 1,000 mls/hr IV .Q1H ONE Stop: 05/05/18 01:07 Last Admin: 05/05/18 00:35 Dose: 1,000 mls/hr Insulin Human Regular 100 unit (/ Sodium Chloride) 100 mls @ 2 mls/hr IV .Q24H JOHANA Physical Exam - Constitutional Appears: Well, Non-toxic - Head Exam Head Exam: ATRAUMATIC, NORMAL INSPECTION, NORMOCEPHALIC - Eye Exam Eye Exam: EOMI, Normal appearance, PERRL Pupil Exam: NORMAL ACCOMODATION, PERRL - ENT Exam ENT Exam: Mucous Membranes Dry Additional comments: poor dentition - Neck Exam Neck exam: Positive for: Normal Inspection - Respiratory Exam Respiratory Exam: Clear to Auscultation Bilateral, NORMAL BREATHING PATTERN - Cardiovascular Exam Cardiovascular Exam: REGULAR RHYTHM - GI/Abdominal Exam GI & Abdominal Exam: Normal Bowel Sounds, Soft. absent: Tenderness - Extremities Exam Extremities exam: Positive for: normal inspection Additional comments: some minor abrasions. - Neurological Exam Neurological exam: Alert, CN II-XII Intact, Oriented x3, Reflexes Normal - Psychiatric Exam Psychiatric exam: Normal Affect, Normal Mood Results - Vital Signs Recent Vital Signs: Last Vital Signs Temp 98.6 F 05/04/18 21: Pulse 67 05/05/18 00:30 Resp 14 05/05/18 00:30 BP 142/78 05/05/18 00:30 Pulse Ox 100 05/05/18 00:53 - Labs Result Diagrams: 05/04/18 22:15 05/04/18 22:15 Labs: Laboratory Results - last 24 hr 05/04/18 05/04/18 05/04/18 22:15 22:15 22:22 WBC 5.1 RBC 4.67 Hgb 14.0 Hct 42.5 MCV 91.1 D MCH 30.0 MCHC 33.0 RDW 14.1 Plt Count 196 MPV 10.0 Neut % (Auto) 62.0 Lymph % (Auto) 22.8 [place] % (Auto) 12.1 H Eos % (Auto) 1.8 Baso % (Auto) 1.3 Neut # (Auto) 3.2 Lymph # (Auto) 1.2 [place] # (Auto) 0.6 Eos # (Auto) 0.1 Baso # (Auto) 0.1 pO2 52 VBG pH 7.27 L VBG pCO2 34 L VBG HCO3 16.4 VBG Total CO2 16.6 L VBG O2 Sat (Calc) 89.9 H VBG Base Excess -10.3 L VBG Potassium 3.0 L Glucose 707 H* Lactate 4.5 H* Crit Value Called To Nini sullivan er Crit Value Called By Julienne Crit Value Read Back Y Blood Gas Notified Time 2226 Sodium 125 L 135.0 Potassium 4.9 Chloride 88 L 101.0 Carbon Dioxide 16 L Anion Gap 26 H BUN 16 Creatinine 0.8 Est GFR ( Amer) > 60 Est GFR (Non-Af Amer) > 60 POC Glucose (mg/dL) Random Glucose 924 H* D Calcium 9.2 Total Bilirubin 0.8 AST 43 ALT 58 Alkaline Phosphatase 129 H D Total Protein 7.3 Albumin 4.4 Globulin 2.9 Albumin/Globulin Ratio 1.5 Lipase 128 Venous Blood Potassium 3.0 L B-Hydroxybutyrate 05/04/18 05/05/18 23:45 00:50 WBC RBC Hgb Hct MCV MCH MCHC RDW Plt Count MPV Neut % (Auto) Lymph % (Auto) [place] % (Auto) Eos % (Auto) Baso % (Auto) Neut # (Auto) Lymph # (Auto) [place] # (Auto) Eos # (Auto) Baso # (Auto) pO2 VBG pH VBG pCO2 VBG HCO3 VBG Total CO2 VBG O2 Sat (Calc) VBG Base Excess VBG Potassium Glucose Lactate Crit Value Called To Crit Value Called By Crit Value Read Back Blood Gas Notified Time Sodium Potassium Chloride Carbon Dioxide Anion Gap BUN Creatinine Est GFR ( Amer) Est GFR (Non-Af Amer) POC Glucose (mg/dL) 306 H Random Glucose Calcium Total Bilirubin AST ALT Alkaline Phosphatase Total Protein Albumin Globulin Albumin/Globulin Ratio Lipase Venous Blood Potassium B-Hydroxybutyrate 0.21 Assessment & Plan (1) HHNC (hyperglycemic hyperosmolar nonketotic coma) Assessment and Plan: 27yo M. PMHx IDDM type 1, bipolar, schizophrenia, major depression, peripheral blindness both eyes, deaf in left ear, peripheral neuropathy, crohn's disease ( diarrhea dominant). patient has been having fevers lately, today presents with severe hyperglycemia despite taking his medications. Neuro: alert and oriented x 3, can continue Seroquel and Trazodone. Pulm: no acute issues, breathing spontaneously on room air CV: hemodynamically stable Hem: leucocytosis Renal: no acute issues. received 2L boluses of NS in ER. maintenance of NS@125 Endo: HHNK, resolving quickly on insulin drip. f/u BMP. GI: diabetic diet ID: no acute issues DVT proph - SCD's, patient can ambulate daily GI proph - not currently indicated Code status - full code Critical Care Time spent 35 minutes Multi-disciplinary rounds were performed with house staff, nursing, speech therapy, respiratory therapy, pharmacy and nutrition with integrated input from the primary team/attending and other consulting services. The documented time is cumulative and includes review of patient data/exams/labs/chart review and examination of the patient on rounds and throughout the day; time is exclusive of any procedures or teaching time. Status: Acute
[2018-05-05] MEDS ORDERED: Insulin Human Regular 100 UNIT in Sodium Chloride 0.9% 99 ML IV SCH (01:15)
[2018-05-05 01:54] LABS: URINE BILIRUBIN NEGATIVE (NEGATIVE); URINE BLOOD NEGATIVE (NEGATIVE); URINE CLARITY Clear (Clear); URINE COLOR Colorless (YELLOW); URINE GLUCOSE (UA) 3+ mg/dL (Normal); URINE LEUKOCYTE ESTERASE NEG Leu/uL (Negative); URINE PROTEIN NEGATIVE (NEGATIVE); URINE UROBILINOGEN NORMAL mg/dL (0.2-1.0)
[2018-05-05 02:12] LABS: BLOOD UREA NITROGEN 14 mg/dL (9-20); CALCIUM 9.4 mg/dl (8.6-10.4); GFR NON-AFRICAN AMERICAN > 60
[2018-05-05] MEDS ORDERED: Sodium Chloride 0.9% 1,000 ML IV SCH (02:30)
[2018-05-05] MEDS ORDERED: (Novolog) Insulin Aspart, Recombinant 100 u/ml 10 ml vial SC SCH ×4 (02:30→11:30)
[2018-05-05] MEDS ORDERED: Glucagon Recombinant 1 mg Inj IM PRN ×2 (02:33→09:24)
[2018-05-05] MEDS ORDERED: Dextrose 50% SYRINGE Inj (50 ml) IV PRN (02:33)
[2018-05-05] MEDS: (Novolog) Insulin Aspart, Recombinant 100 u/ml 10 ml vial SC SCH ×2 (04:00→08:18)
[2018-05-05 06:32] LABS: BASO # 0.1 K/uL (0.0-0.2); BASO % 1.1 % (0.0-2.0); EOS # 0.1 K/uL (0.0-0.7); EOS % 2.3 % (0.0-4.0); HEMOGLOBIN 14.4 g/dL (12.0-18.0); LYMPH # 1.9 K/uL (1.0-4.3); MEAN CELL VOLUME 87.2 fL (80.0-94.0); MEAN CORPUSCULAR HEMOGLOBIN 29.4 pg (27.0-31.0); MEAN CORPUSCULAR HGB CONC 33.7 g/dL (33.0-37.0); MEAN PLATELET VOLUME 9.2 fL (7.2-11.7); MONO # 0.8 K/uL (0.0-0.8); MONO % 12.1 % (0.0-10.0); NEUT # 3.6 K/uL (1.8-7.0); NEUT % 55.5 % (50.0-75.0); RBC 4.89 Mil/uL (4.40-5.90); WHITE BLOOD COUNT 6.4 K/uL (4.8-10.8)
[2018-05-05 07:02] LABS: ALB/GLOB RATIO 1.5 (1.0-2.1); ALBUMIN 4.5 g/dL (3.5-5.0); ALT/SGPT 59 U/L (21-72); AST/SGOT 42 U/L (17-59); BLOOD UREA NITROGEN 16 mg/dL (9-20); CALCIUM 9.3 mg/dl (8.6-10.4); GFR NON-AFRICAN AMERICAN > 60
--- NOTE | 2018-05-05 11:06 | RAD ---
Date of service: 05/04/2018 PROCEDURE: CHEST RADIOGRAPH, 1 VIEW HISTORY: Diabetic COMPARISON: 04/10/2018. FINDINGS: LUNGS: The lungs are well inflated and clear. PLEURA: No pneumothorax or pleural fluid seen. CARDIOVASCULAR: Normal. OSSEOUS STRUCTURES: No significant abnormalities. VISUALIZED UPPER ABDOMEN: Normal. OTHER FINDINGS: None. IMPRESSION: No active pulmonary disease.
--- NOTE | 2018-05-05 11:29 | CP.PCM.PN ---
Subjective - Date & Time of Evaluation Date of Evaluation: 05/05/18 Time of Evaluation: 11:27 - Subjective Subjective: Patient admitted to ICU for HONK. Patient's anion gap closed Objective - Vital Signs/Intake and Output Vital Signs (last 24 hours): Temp Pulse Resp BP Pulse Ox 97.6 F 87 11 L 102/69 98 05/05/18 08:00 05/05/18 10:00 05/05/18 10:00 05/05/18 08:20 05/05/18 06:00 Intake and Output: 05/05/18 05/05/18 06:59 18:59 Intake Total 740 920 Output Total 200 300 Balance 540 620 - Medications Medications: Current Medications Dextrose (Glutose 15) 0 gm PO ONCE PRN; Protocol PRN Reason: Hypoglycemia Protocol Dextrose (Dextrose 50% Inj) 0 ml IV STAT PRN; Protocol PRN Reason: Hypoglycemia Protocol Dicyclomine HCl (Bentyl) 10 mg PO QID [facility] Glucagon (Glucagen Diagnostic Kit) 0 mg IM STAT PRN; Protocol PRN Reason: Hypoglycemia Protocol Dextrose (Dextrose 5% In Water 1000 Ml) 1,000 mls @ 0 mls/hr IV .Q0M PRN; Protocol; Per Protocol PRN Reason: Hypoglycemia Protocol Insulin Aspart (Novolog) 15 unit SC AC [facility] Insulin Aspart (Novolog) 0 unit SC ACHS [facility] PRN Reason: Protocol Insulin Glargine (Lantus) 20 unit SC HS [facility] Mesalamine (Delzicol Dr) 400 mg PO TID [facility] Quetiapine Fumarate (Seroquel) 50 mg PO DAILY [facility] Last Admin: 05/05/18 10:49 Dose: 50 mg Trazodone HCl (Desyrel) 50 mg PO HS [facility] - Labs Labs: 05/05/18 06:26 05/05/18 06:26 Assessment and Plan - Assessment and Plan (Free Text) Assessment: 27 y/o male with h/o non-compliance admitted to ICU for DKA. Patient well known to ICU team -DKA: resolved: patient will be switched from IV to subQ insulin, lantus + premeals -?crohns's disease: will start mesalamine -continue oral hydration -Patient takes other psych meds including seroquel XR 50 amd trazodone 50 PRN qhs -continue dvt/pud ppx Patient remains hemodynamically stable.
[2018-05-05] MEDS ORDERED: (Novolin R) Insulin Human Regular 100 units/ml vial SC SCH ×3 (16:30)
[2018-05-05] MEDS: (Novolin R) Insulin Human Regular 100 units/ml vial SC SCH ×2 (16:35→21:44)
[2018-05-05] MEDS: (Lantus) Insulin Glargine, Recombinant SC SCH (21:45)
--- NOTE | 2018-05-05 21:57 | CP.PCM.CON ---
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) - RENAL Hx Chronic Kidney Disease: No - ENDOCRINE/METABOLIC Hx Endocrine Disorders: Yes Hx Diabetes Mellitus Type 1: Yes (insulin dependent) - HEMATOLOGICAL/ONCOLOGICAL Hx Blood Disorders: No - INTEGUMENTARY Hx Dermatological Problems: No - MUSCULOSKELETAL/RHEUMATOLOGICAL Hx Falls: No - GASTROINTESTINAL Hx Gastrointestinal Disorders: Yes Hx Crohn's Disease: Yes - GENITOURINARY/GYNECOLOGICAL Hx Genitourinary Disorders: No - PSYCHIATRIC Hx Substance Use: Yes - SURGICAL HISTORY Hx Surgeries: Yes Other/Comment: wired Jaw-As per patient today 04/10/2018, he has had rectal surgery x 2.and facial surgery. - ANESTHESIA Hx Anesthesia: Yes Hx Anesthesia Reactions: No Hx Malignant Hyperthermia: No Has any member of the family had a problem w/ anesthesia?: No Meds Allergies/Adverse Reactions: Allergies Allergy/AdvReac Type Severity Reaction Status Date / Time No Known Allergies Allergy Verified 04/10/18 17:22 - Medications Medications: Current Medications Dextrose (Glutose 15) 0 gm PO ONCE PRN; Protocol PRN Reason: Hypoglycemia Protocol Dextrose (Dextrose 50% Inj) 0 ml IV STAT PRN; Protocol PRN Reason: Hypoglycemia Protocol Dicyclomine HCl (Bentyl) 10 mg PO QID [facility] Last Admin: 05/05/18 21:44 Dose: 10 mg Glucagon (Glucagen Diagnostic Kit) 0 mg IM STAT PRN; Protocol PRN Reason: Hypoglycemia Protocol Dextrose (Dextrose 5% In Water 1000 Ml) 1,000 mls @ 0 mls/hr IV .Q0M PRN; Protocol; Per Protocol PRN Reason: Hypoglycemia Protocol Insulin Glargine (Lantus) 20 unit SC HS [facility] Last Admin: 05/05/18 21:45 Dose: 20 units Insulin Human Regular (Novolin R) 15 unit SC AC [facility] Last Admin: 05/05/18 16:35 Dose: Not Given Insulin Human Regular (Novolin R) 0 unit SC ACHS [facility] PRN Reason: Protocol Last Admin: 05/05/18 21:44 Dose: 2 units Mesalamine (Delzicol Dr) 400 mg PO TID [facility] Last Admin: 05/05/18 19:28 Dose: 400 mg Quetiapine Fumarate (Seroquel) 50 mg PO DAILY [facility] Last Admin: 05/05/18 10:49 Dose: 50 mg Trazodone HCl (Desyrel) 50 mg PO HS [facility] Last Admin: 05/05/18 21:44 Dose: 50 mg Results - Vital Signs Recent Vital Signs: Last Vital Signs Temp 97.5 F L 05/05/18 20:00 Pulse 80 05/05/18 20:00 Resp 16 05/05/18 20:00 BP 97/62 L 05/05/18 20:00 Pulse Ox 100 05/05/18 20:00 - Labs Result Diagrams: 05/05/18 06:26 05/05/18 06:26 Labs: Laboratory Results - last 24 hr 05/04/18 05/04/18 05/04/18 22:15 22:15 22:22 WBC 5.1 RBC 4.67 Hgb 14.0 Hct 42.5 MCV 91.1 D MCH 30.0 MCHC 33.0 RDW 14.1 Plt Count 196 MPV 10.0 Neut % (Auto) 62.0 Lymph % (Auto) 22.8 [place] % (Auto) 12.1 H Eos % (Auto) 1.8 Baso % (Auto) 1.3 Neut # (Auto) 3.2 Lymph # (Auto) 1.2 [place] # (Auto) 0.6 Eos # (Auto) 0.1 Baso # (Auto) 0.1 pO2 52 VBG pH 7.27 L VBG pCO2 34 L VBG HCO3 16.4 VBG Total CO2 16.6 L VBG O2 Sat (Calc) 89.9 H VBG Base Excess -10.3 L VBG Potassium 3.0 L Glucose 707 H* Lactate 4.5 H* Crit Value Called To Nini sullivan er Crit Value Called By Julienne Crit Value Read Back Y Blood Gas Notified Time 2226 Sodium 125 L 135.0 Potassium 4.9 Chloride 88 L 101.0 Carbon Dioxide 16 L Anion Gap 26 H BUN 16 Creatinine 0.8 Est GFR ( Amer) > 60 Est GFR (Non-Af Amer) > 60 POC Glucose (mg/dL) Random Glucose 924 H* D Calcium 9.2 Phosphorus Magnesium Total Bilirubin 0.8 AST 43 ALT 58 Alkaline Phosphatase 129 H D Total Protein 7.3 Albumin 4.4 Globulin 2.9 Albumin/Globulin Ratio 1.5 Lipase 128 Venous Blood Potassium 3.0 L Urine Color Urine Clarity Urine pH Ur Specific [place] Urine Protein Urine Glucose (UA) Urine Ketones Urine Blood Urine Nitrate Urine Bilirubin Urine Urobilinogen Ur Leukocyte Esterase Urine WBC (Auto) B-Hydroxybutyrate 05/04/18 05/05/18 05/05/18 23:45 00:50 01:49 WBC RBC Hgb Hct MCV MCH MCHC RDW Plt Count MPV Neut % (Auto) Lymph % (Auto) [place] % (Auto) Eos % (Auto) Baso % (Auto) Neut # (Auto) Lymph # (Auto) [place] # (Auto) Eos # (Auto) Baso # (Auto) pO2 VBG pH VBG pCO2 VBG HCO3 VBG Total CO2 VBG O2 Sat (Calc) VBG Base Excess VBG Potassium Glucose Lactate Crit Value Called To Crit Value Called By Crit Value Read Back Blood Gas Notified Time Sodium Potassium Chloride Carbon Dioxide Anion Gap BUN Creatinine Est GFR ( Amer) Est GFR (Non-Af Amer) POC Glucose (mg/dL) 306 H Random Glucose Calcium Phosphorus Magnesium Total Bilirubin AST ALT Alkaline Phosphatase Total Protein Albumin Globulin Albumin/Globulin Ratio Lipase Venous Blood Potassium Urine Color Colorless Urine Clarity Clear Urine pH 5.0 Ur Specific [place] 1.028 Urine Protein Negative Urine Glucose (UA) 3+ H Urine Ketones Negative Urine Blood Negative Urine Nitrate Negative Urine Bilirubin Negative Urine Urobilinogen Normal Ur Leukocyte Esterase Neg Urine WBC (Auto) < 1 B-Hydroxybutyrate 0.21 05/05/18 05/05/18 05/05/18 01:49 02:25 03:53 WBC RBC Hgb Hct MCV MCH MCHC RDW Plt Count MPV Neut % (Auto) Lymph % (Auto) [place] % (Auto) Eos % (Auto) Baso % (Auto) Neut # (Auto) Lymph # (Auto) [place] # (Auto) Eos # (Auto) Baso # (Auto) pO2 VBG pH VBG pCO2 VBG HCO3 VBG Total CO2 VBG O2 Sat (Calc) VBG Base Excess VBG Potassium Glucose Lactate Crit Value Called To Crit Value Called By Crit Value Read Back Blood Gas Notified Time Sodium 137 Potassium 3.7 Chloride 100 Carbon Dioxide 20 L Anion Gap 20 BUN 14 Creatinine 0.7 L Est GFR ( Amer) > 60 Est GFR (Non-Af Amer) > 60 POC Glucose (mg/dL) 179 H 220 H Random Glucose 253 H Calcium 9.4 Phosphorus Magnesium Total Bilirubin AST ALT Alkaline Phosphatase Total Protein Albumin Globulin Albumin/Globulin Ratio Lipase Venous Blood Potassium Urine Color Urine Clarity Urine pH Ur Specific [place] Urine Protein Urine Glucose (UA) Urine Ketones Urine Blood Urine Nitrate Urine Bilirubin Urine Urobilinogen Ur Leukocyte Esterase Urine WBC (Auto) B-Hydroxybutyrate 05/05/18 05/05/18 05/05/18 06:26 06:26 06:33 WBC 6.4 RBC 4.89 Hgb 14.4 Hct 42.6 MCV 87.2 D MCH 29.4 MCHC 33.7 RDW 14.0 Plt Count 247 MPV 9.2 Neut % (Auto) 55.5 Lymph % (Auto) 29.0 [place] % (Auto) 12.1 H Eos % (Auto) 2.3 Baso % (Auto) 1.1 Neut # (Auto) 3.6 Lymph # (Auto) 1.9 [place] # (Auto) 0.8 Eos # (Auto) 0.1 Baso # (Auto) 0.1 pO2 VBG pH VBG pCO2 VBG HCO3 VBG Total CO2 VBG O2 Sat (Calc) VBG Base Excess VBG Potassium Glucose Lactate Crit Value Called To Crit Value Called By Crit Value Read Back Blood Gas Notified Time Sodium 140 Potassium 3.6 Chloride 101 Carbon Dioxide 23 Anion Gap 19 BUN 16 Creatinine 0.7 L Est GFR ( Amer) > 60 Est GFR (Non-Af Amer) > 60 POC Glucose (mg/dL) 147 H Random Glucose 152 H Calcium 9.3 Phosphorus 4.8 H Magnesium 2.1 Total Bilirubin 0.5 AST 42 ALT 59 Alkaline Phosphatase 85 Total Protein 7.5 Albumin 4.5 Globulin 3.0 Albumin/Globulin Ratio 1.5 Lipase Venous Blood Potassium Urine Color Urine Clarity Urine pH Ur Specific [place] Urine Protein Urine Glucose (UA) Urine Ketones Urine Blood Urine Nitrate Urine Bilirubin Urine Urobilinogen Ur Leukocyte Esterase Urine WBC (Auto) B-Hydroxybutyrate 09/05/05/18 05/05/18 08:06 11:34 16:25 WBC RBC Hgb Hct MCV MCH MCHC RDW Plt Count MPV Neut % (Auto) Lymph % (Auto) [place] % (Auto) Eos % (Auto) Baso % (Auto) Neut # (Auto) Lymph # (Auto) [place] # (Auto) Eos # (Auto) Baso # (Auto) pO2 VBG pH VBG pCO2 VBG HCO3 VBG Total CO2 VBG O2 Sat (Calc) VBG Base Excess VBG Potassium Glucose Lactate Crit Value Called To Crit Value Called By Crit Value Read Back Blood Gas Notified Time Sodium Potassium Chloride Carbon Dioxide Anion Gap BUN Creatinine Est GFR ( Amer) Est GFR (Non-Af Amer) POC Glucose (mg/dL) 224 H 333 H 65 Random Glucose Calcium Phosphorus Magnesium Total Bilirubin AST ALT Alkaline Phosphatase Total Protein Albumin Globulin Albumin/Globulin Ratio Lipase Venous Blood Potassium Urine Color Urine Clarity Urine pH Ur Specific [place] Urine Protein Urine Glucose (UA) Urine Ketones Urine Blood Urine Nitrate Urine Bilirubin Urine Urobilinogen Ur Leukocyte Esterase Urine WBC (Auto) B-Hydroxybutyrate 05/05/18 05/05/18 05/05/18 16:27 17:07 19:38 WBC RBC Hgb Hct MCV MCH MCHC RDW Plt Count MPV Neut % (Auto) Lymph % (Auto) [place] % (Auto) Eos % (Auto) Baso % (Auto) Neut # (Auto) Lymph # (Auto) [place] # (Auto) Eos # (Auto) Baso # (Auto) pO2 VBG pH VBG pCO2 VBG HCO3 VBG Total CO2 VBG O2 Sat (Calc) VBG Base Excess VBG Potassium Glucose Lactate Crit Value Called To Crit Value Called By Crit Value Read Back Blood Gas Notified Time Sodium Potassium Chloride Carbon Dioxide Anion Gap BUN Creatinine Est GFR ( Amer) Est GFR (Non-Af Amer) POC Glucose (mg/dL) 66 73 337 H Random Glucose Calcium Phosphorus Magnesium Total Bilirubin AST ALT Alkaline Phosphatase Total Protein Albumin Globulin Albumin/Globulin Ratio Lipase Venous Blood Potassium Urine Color Urine Clarity Urine pH Ur Specific [place] Urine Protein Urine Glucose (UA) Urine Ketones Urine Blood Urine Nitrate Urine Bilirubin Urine Urobilinogen Ur Leukocyte Esterase Urine WBC (Auto) B-Hydroxybutyrate Assessment & Plan (1) DM I (diabetes mellitus, type I), uncontrolled Assessment and Plan: Endocrine consult reason for consult: uncontrolled diabetes Source: pt and chart review is 27 y/o known to endocrine with recurrent admission for DKA , admitted for DKA with glucose 900! s/p isulin drip pt with type 1 diabetes complicated with neuropathy /gastroparesis , retinopathy ,/with cataract , (-) nephropathy (-) CAD (-) PVD as per pt. felt sick 2 days ago slept the whole day with out taking insulin the following day his mom wake him up & checked his sugar found it high & brought him to ICU outpatient diabetes management regimen : lantus 20 units qhs & Humalog 10-15 units tid blood glucose log : 140 -200 , hypoglycemia 65 refused orange juice , D50 was given food & Soda 377 , as per nurse in charge ate almost 100% Allergy NKDA Past medical history: croh's disease Past surgical history: denies Psychiatry history: (+) psychiatry disorder Social history : denies smoking , ETOH use , illicit drug use Family history : irrelvant ROS: Constitutional: denies fever, tiredness/weakness. HEENT: denies earache, change in voice .Respiratory: denies cough, sob . CVS :no chest pain, no palpitations . Abdomen: no abdominal pain, no nausea /vomiting, no change bowel movement. 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 Extremities: no edema, no tremors. Skin: no itching, no rash Physical exam Well-developed AAO x3 , ,NAD , sick looking VSS HEENT: norm cephalic, atraumatic, no lid lag , no exophthalmos ,poor dental hygiene NECK: supple, no palpable lymphadenopathy THYROID: no palpable thyromegaly, not tender CHEST: fair air entry, bilateral, CVS: S1,S2 ABDOMEN: bowel sound present, benign, obese, no wide purple striae , no bruises EXTREMITIES: no edema, clubbing or cyanosis, no palpable hand tremors Skin: no acanthosis nigricans , (+) tattoo lab: 03/2018 a1c 15.7 , TSH 1.39 Assessment sever symptomatic hypoglycemia uncontrolled type 1 diabetes with neuropathy /gastroparesis & retinopathy s/p DKA plan resume lantus 20 units stop Novolog start Novoloin R low dose coverage, no 3 am coverage start novoloin R 15 units tid with meals if eat > 60% , Thank you for allowing me to participate in the care of the patient, we will follow with you. Fam Keller # [phone] office Fridays & Saturdays address: [address] [place] [address] ,phone # [phone] ,FAX [phone] Status: Chronic (2) Hypoglycemia due to type 1 diabetes mellitus Status: Acute
--- NOTE | 2018-05-05 23:09 | CP.PCM.HP ---
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) - RENAL Hx Chronic Kidney Disease: No - ENDOCRINE/METABOLIC Hx Endocrine Disorders: Yes Hx Diabetes Mellitus Type 1: Yes (insulin dependent) - HEMATOLOGICAL/ONCOLOGICAL Hx Blood Disorders: No - INTEGUMENTARY Hx Dermatological Problems: No - MUSCULOSKELETAL/RHEUMATOLOGICAL Hx Falls: No - GASTROINTESTINAL Hx Gastrointestinal Disorders: Yes Hx Crohn's Disease: Yes - GENITOURINARY/GYNECOLOGICAL Hx Genitourinary Disorders: No - PSYCHIATRIC Hx Substance Use: Yes - SURGICAL HISTORY Hx Surgeries: Yes Other/Comment: wired Jaw-As per patient today 04/10/2018, he has had rectal surgery x 2.and facial surgery. - ANESTHESIA Hx Anesthesia: Yes Hx Anesthesia Reactions: No Hx Malignant Hyperthermia: No Has any member of the family had a problem w/ anesthesia?: No Meds Allergies/Adverse Reactions: Allergies Allergy/AdvReac Type Severity Reaction Status Date / Time No Known Allergies Allergy Verified 04/10/18 17:22 Results - Vital Signs Recent Vital Signs: Last Vital Signs Temp 97.5 F L 05/05/18 20:00 Pulse 80 05/05/18 20:00 Resp 16 05/05/18 20:00 BP 97/62 L 05/05/18 20:00 Pulse Ox 100 05/05/18 20:00 - Labs Result Diagrams: 05/06/18 11:35 05/06/18 13:22 Labs: Laboratory Results - last 24 hr 05/04/18 05/05/18 05/05/18 23:45 00:50 01:49 WBC RBC Hgb Hct MCV MCH MCHC RDW Plt Count MPV Neut % (Auto) Lymph % (Auto) [place] % (Auto) Eos % (Auto) Baso % (Auto) Neut # (Auto) Lymph # (Auto) [place] # (Auto) Eos # (Auto) Baso # (Auto) Sodium Potassium Chloride Carbon Dioxide Anion Gap BUN Creatinine Est GFR ( Amer) Est GFR (Non-Af Amer) POC Glucose (mg/dL) 306 H Random Glucose Calcium Phosphorus Magnesium Total Bilirubin AST ALT Alkaline Phosphatase Total Protein Albumin Globulin Albumin/Globulin Ratio Urine Color Colorless Urine Clarity Clear Urine pH 5.0 Ur Specific [place] 1.028 Urine Protein Negative Urine Glucose (UA) 3+ H Urine Ketones Negative Urine Blood Negative Urine Nitrate Negative Urine Bilirubin Negative Urine Urobilinogen Normal Ur Leukocyte Esterase Neg Urine WBC (Auto) < 1 B-Hydroxybutyrate 0.21 05/05/18 05/05/18 05/05/18 01:49 02:25 03:53 WBC RBC Hgb Hct MCV MCH MCHC RDW Plt Count MPV Neut % (Auto) Lymph % (Auto) [place] % (Auto) Eos % (Auto) Baso % (Auto) Neut # (Auto) Lymph # (Auto) [place] # (Auto) Eos # (Auto) Baso # (Auto) Sodium 137 Potassium 3.7 Chloride 100 Carbon Dioxide 20 L Anion Gap 20 BUN 14 Creatinine 0.7 L Est GFR ( Amer) > 60 Est GFR (Non-Af Amer) > 60 POC Glucose (mg/dL) 179 H 220 H Random Glucose 253 H Calcium 9.4 Phosphorus Magnesium Total Bilirubin AST ALT Alkaline Phosphatase Total Protein Albumin Globulin Albumin/Globulin Ratio Urine Color Urine Clarity Urine pH Ur Specific [place] Urine Protein Urine Glucose (UA) Urine Ketones Urine Blood Urine Nitrate Urine Bilirubin Urine Urobilinogen Ur Leukocyte Esterase Urine WBC (Auto) B-Hydroxybutyrate 05/05/18 05/05/18 05/05/18 06:26 06:26 06:33 WBC 6.4 RBC 4.89 Hgb 14.4 Hct 42.6 MCV 87.2 D MCH 29.4 MCHC 33.7 RDW 14.0 Plt Count 247 MPV 9.2 Neut % (Auto) 55.5 Lymph % (Auto) 29.0 [place] % (Auto) 12.1 H Eos % (Auto) 2.3 Baso % (Auto) 1.1 Neut # (Auto) 3.6 Lymph # (Auto) 1.9 [place] # (Auto) 0.8 Eos # (Auto) 0.1 Baso # (Auto) 0.1 Sodium 140 Potassium 3.6 Chloride 101 Carbon Dioxide 23 Anion Gap 19 BUN 16 Creatinine 0.7 L Est GFR ( Amer) > 60 Est GFR (Non-Af Amer) > 60 POC Glucose (mg/dL) 147 H Random Glucose 152 H Calcium 9.3 Phosphorus 4.8 H Magnesium 2.1 Total Bilirubin 0.5 AST 42 ALT 59 Alkaline Phosphatase 85 Total Protein 7.5 Albumin 4.5 Globulin 3.0 Albumin/Globulin Ratio 1.5 Urine Color Urine Clarity Urine pH Ur Specific [place] Urine Protein Urine Glucose (UA) Urine Ketones Urine Blood Urine Nitrate Urine Bilirubin Urine Urobilinogen Ur Leukocyte Esterase Urine WBC (Auto) B-Hydroxybutyrate 05/05/18 05/05/18 05/05/18 08:06 11:34 16:25 WBC RBC Hgb Hct MCV MCH MCHC RDW Plt Count MPV Neut % (Auto) Lymph % (Auto) [place] % (Auto) Eos % (Auto) Baso % (Auto) Neut # (Auto) Lymph # (Auto) [place] # (Auto) Eos # (Auto) Baso # (Auto) Sodium Potassium Chloride Carbon Dioxide Anion Gap BUN Creatinine Est GFR ( Amer) Est GFR (Non-Af Amer) POC Glucose (mg/dL) 224 H 333 H 65 Random Glucose Calcium Phosphorus Magnesium Total Bilirubin AST ALT Alkaline Phosphatase Total Protein Albumin Globulin Albumin/Globulin Ratio Urine Color Urine Clarity Urine pH Ur Specific [place] Urine Protein Urine Glucose (UA) Urine Ketones Urine Blood Urine Nitrate Urine Bilirubin Urine Urobilinogen Ur Leukocyte Esterase Urine WBC (Auto) B-Hydroxybutyrate 05/05/18 05/05/18 05/05/18 16:27 17:07 19:38 WBC RBC Hgb Hct MCV MCH MCHC RDW Plt Count MPV Neut % (Auto) Lymph % (Auto) [place] % (Auto) Eos % (Auto) Baso % (Auto) Neut # (Auto) Lymph # (Auto) [place] # (Auto) Eos # (Auto) Baso # (Auto) Sodium Potassium Chloride Carbon Dioxide Anion Gap BUN Creatinine Est GFR ( Amer) Est GFR (Non-Af Amer) POC Glucose (mg/dL) 66 73 337 H Random Glucose Calcium Phosphorus Magnesium Total Bilirubin AST ALT Alkaline Phosphatase Total Protein Albumin Globulin Albumin/Globulin Ratio Urine Color Urine Clarity Urine pH Ur Specific [place] Urine Protein Urine Glucose (UA) Urine Ketones Urine Blood Urine Nitrate Urine Bilirubin Urine Urobilinogen Ur Leukocyte Esterase Urine WBC (Auto) B-Hydroxybutyrate 05/05/18 21:35 WBC RBC Hgb Hct MCV MCH MCHC RDW Plt Count MPV Neut % (Auto) Lymph % (Auto) [place] % (Auto) Eos % (Auto) Baso % (Auto) Neut # (Auto) Lymph # (Auto) [place] # (Auto) Eos # (Auto) Baso # (Auto) Sodium Potassium Chloride Carbon Dioxide Anion Gap BUN Creatinine Est GFR ( Amer) Est GFR (Non-Af Amer) POC Glucose (mg/dL) 367 H Random Glucose Calcium Phosphorus Magnesium Total Bilirubin AST ALT Alkaline Phosphatase Total Protein Albumin Globulin Albumin/Globulin Ratio Urine Color Urine Clarity Urine pH Ur Specific [place] Urine Protein Urine Glucose (UA) Urine Ketones Urine Blood Urine Nitrate Urine Bilirubin Urine Urobilinogen Ur Leukocyte Esterase Urine WBC (Auto) B-Hydroxybutyrate
--- NOTE | 2018-05-06 03:13 | HP ---
CHIEF COMPLAINT: Weakness. HISTORY OF PRESENT ILLNESS: This is a 27-year-old male with history of type 1 diabetes, on insulin, and he was brought into emergency room with generalized weakness, tiredness, anorexia, malaise, fatigue, polyuria, polydipsia, polyphagia, and he was not taking his insulin. He felt weak, and he continued to get worse till he came to emergency room, and he was thus hospitalized. 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 The patent also was having fever, chills, high blood sugar, and generalized weakness. Sugars are high. The patient is a poor historian. No further details could be obtained. CURRENT MEDICATIONS: At home, he is supposed to be on trazodone, Seroquel, Humalog, and Lantus. SOCIAL HISTORY: He is a nonsmoker, non-ETOH user. PAST MEDICAL HISTORY: Crohn's disease, diabetes. PHYSICAL EXAMINATION: GENERAL: Young male, in no acute distress, drowsy. VITAL SIGNS: BP 97/62, pulse 80, respiratory rate 16, temperature 97.5. SKIN: Dry. Poor turgor. HEENT: Atraumatic. Normocephalic. Negative pallor. Negative jaundice. Extraocular movements are intact. NECK: Supple. No JVD. LUNGS: Clear. CVS: S1, S2 regular. ABDOMEN: Soft and nontender. Bowel sounds are positive. RECTAL: No masses. No bleeding. EXTREMITIES: No clubbing, cyanosis, or edema. CENTRAL NERVOUS SYSTEM: The patient is arousable. Poor hearing. Decreased sensation in the feet. Absent vibration in the feet. ASSESSMENT: 1. Diabetic ketoacidosis. 2. Crohn's disease. 3. Bipolar depression. PLAN: Continue current medication. Monitor the patient. Roshan Loving MD
[2018-05-06] MEDS: (Novolin R) Insulin Human Regular 100 units/ml vial SC SCH ×7 (08:03→21:46)
[2018-05-06] MEDS: Cholestyramine 4 gm/Pkt UD PO SCH ×2 (10:00→22:04)
[2018-05-06 13:40] LABS: BASO # 0.1 K/uL (0.0-0.2); BASO % 1.1 % (0.0-2.0); EOS # 0.1 K/uL (0.0-0.7); EOS % 2.3 % (0.0-4.0); HEMOGLOBIN 14.2 g/dL (12.0-18.0); MEAN CELL VOLUME 88.8 fL (80.0-94.0); MEAN CORPUSCULAR HEMOGLOBIN 29.5 pg (27.0-31.0); MEAN CORPUSCULAR HGB CONC 33.3 g/dL (33.0-37.0); MEAN PLATELET VOLUME 9.9 fL (7.2-11.7); MONO # 0.6 K/uL (0.0-0.8); MONO % 10.7 % (0.0-10.0); NEUT # 3.1 K/uL (1.8-7.0); NEUT % 51.9 % (50.0-75.0); RBC 4.82 Mil/uL (4.40-5.90); RED CELL DISTRIBUTION WIDTH 14.1 % (11.5-14.5)
[2018-05-06 14:02] LABS: BLOOD UREA NITROGEN 22 mg/dL (9-20); CALCIUM 9.7 mg/dl (8.6-10.4); GFR NON-AFRICAN AMERICAN > 60
[2018-05-06] MEDS ORDERED: Potassium Chloride 20 mEq ER Tab PO ONE (16:30)
[2018-05-06] MEDS: Dextrose 50% SYRINGE Inj (50 ml) IV PRN (16:52)
[2018-05-06] MEDS: LIPASE/PROTEASE/AMYLASE 21,000 U ECC PO SCH (17:49)
--- NOTE | 2018-05-06 17:49 | CP.PCM.PN ---
Subjective - Date & Time of Evaluation Date of Evaluation: 05/06/18 Time of Evaluation: 17:41 - Subjective Subjective: uncontrolled type 1 DM Objective - Vital Signs/Intake and Output Vital Signs (last 24 hours): Temp Pulse Resp BP Pulse Ox 97.6 F 75 20 103/66 98 05/06/18 17:08 05/06/18 17:08 05/06/18 17:08 05/06/18 17:08 05/06/18 17:08 - Medications Medications: Current Medications Cholestyramine Resin (Questran) 4 gm PO BID [facility] Stop: 05/15/18 18:01 Last Admin: 05/06/18 10:00 Dose: 4 gm Dextrose (Glutose 15) 0 gm PO ONCE PRN; Protocol PRN Reason: Hypoglycemia Protocol Dextrose (Dextrose 50% Inj) 0 ml IV STAT PRN; Protocol PRN Reason: Hypoglycemia Protocol Last Admin: 05/06/18 16:52 Dose: 50 ml Dicyclomine HCl (Bentyl) 10 mg PO QID [facility] Last Admin: 05/06/18 14:57 Dose: 10 mg Glucagon (Glucagen Diagnostic Kit) 0 mg IM STAT PRN; Protocol PRN Reason: Hypoglycemia Protocol Dextrose (Dextrose 5% In Water 1000 Ml) 1,000 mls @ 0 mls/hr IV .Q0M PRN; Protocol; Per Protocol PRN Reason: Hypoglycemia Protocol Insulin Glargine (Lantus) 20 unit SC [facility] Last Admin: 05/05/18 21:45 Dose: 20 units Insulin Human Regular (Novolin R) 0 unit SC [facility] PRN Reason: Protocol Last Admin: 05/06/18 16:59 Dose: Not Given Insulin Human Regular (Novolin R) 10 unit SC [facility] Mesalamine (Delzicol Dr) 400 mg PO TID [facility] Last Admin: 05/06/18 14:57 Dose: 400 mg Morphine Sulfate (Morphine) 1 mg IVP Q6 PRN PRN Reason: Pain, Mild (1-3) Last Admin: 05/06/18 16:57 Dose: 1 mg Quetiapine Fumarate (Seroquel) 50 mg PO DAILY [facility] Last Admin: 05/06/18 10:36 Dose: 50 mg Trazodone HCl (Desyrel) 50 mg PO [facility] Last Admin: 05/05/18 21:44 Dose: 50 mg - Labs Labs: 05/06/18 11:35 05/06/18 13:22 Assessment and Plan (1) DM I (diabetes mellitus, type I), uncontrolled Assessment & Plan: Endocrine consult f/u for uncontrolled diabetes is 27 y/o known to endocrine with recurrent admission for DKA , admitted for DKA with glucose 900! s/p isulin drip pt with type 1 diabetes complicated with neuropathy /gastroparesis , retinopathy ,/with cataract , (-) nephropathy (-) CAD (-) PVD as per pt. felt sick 2 days ago slept the whole day with out taking insulin the following day his mom wake him up & checked his sugar found it high & brought him to ICU outpatient diabetes management regimen : lantus 20 units qhs & Humalog 10-15 units tid blood glucose log : 190-300 hypoglycemia 40-50 s/p apple juice & , D50 repeat >300 , poor intake , hypoglycemia despite receiving only the coverage scale with lunch Allergy NKDA Past medical history: croh's disease Past surgical history: denies Psychiatry history: (+) psychiatry disorder Social history : denies smoking , ETOH use , illicit drug use Family history : irrelvant ROS: Constitutional: denies fever, tiredness/weakness. HEENT: denies earache, change in voice .Respiratory: denies cough, sob . CVS :no chest pain, no palpitations . Abdomen: no abdominal pain, no nausea /vomiting, no change bowel movement. DIRECTOR DANCE : denies light-headedness, dizziness. Extremities: no edema, no tremors. Skin: no itching, no rash Physical exam Well-developed AAO x3 , ,NAD , sick looking VSS HEENT: norm cephalic, atraumatic, no lid lag , no exophthalmos ,poor dental hygiene NECK: supple, no palpable lymphadenopathy THYROID: no palpable thyromegaly, not tender CHEST: fair air entry, bilateral, CVS: S1,S2 ABDOMEN: bowel sound present, benign, obese, no wide purple striae , no bruises EXTREMITIES: no edema, clubbing or cyanosis, no palpable hand tremors Skin: no acanthosis nigricans , (+) tattoo lab: 03/2018 a1c 15.7 , TSH 1.39 Assessment recurrent sever hypoglycemia uncontrolled type 1 diabetes with neuropathy /gastroparesis & retinopathy s/p DKA plan continue lantus 20 units continue Novoloin R low dose coverage, no 3 am coverage decrease Novoloin R 10 units tid with meals if eat > 60% we will follow with you. Fam Keller # [phone] office Fridays & Saturdays address: [address] [place] [address] ,phone # [phone] ,FAX [phone] Status: Chronic (2) Hypoglycemia due to type 1 diabetes mellitus Status: Acute
--- NOTE | 2018-05-06 19:50 | CP.PCM.PN ---
Objective - Vital Signs/Intake and Output Vital Signs (last 24 hours): Temp Pulse Resp BP Pulse Ox 97.6 F 75 20 103/66 98 05/06/18 17:08 05/06/18 17:08 05/06/18 17:08 05/06/18 17:08 05/06/18 17:08 - Medications Medications: Current Medications Cholestyramine Resin (Questran) 4 gm PO BID [facility] Stop: 05/15/18 18:01 Last Admin: 05/06/18 10:00 Dose: 4 gm Dextrose (Glutose 15) 0 gm PO ONCE PRN; Protocol PRN Reason: Hypoglycemia Protocol Dextrose (Dextrose 50% Inj) 0 ml IV STAT PRN; Protocol PRN Reason: Hypoglycemia Protocol Last Admin: 05/06/18 16:52 Dose: 50 ml Dicyclomine HCl (Bentyl) 10 mg PO QID [facility] Last Admin: 05/06/18 17:47 Dose: 10 mg Glucagon (Glucagen Diagnostic Kit) 0 mg IM STAT PRN; Protocol PRN Reason: Hypoglycemia Protocol Dextrose (Dextrose 5% In Water 1000 Ml) 1,000 mls @ 0 mls/hr IV .Q0M PRN; Protocol; Per Protocol PRN Reason: Hypoglycemia Protocol Insulin Glargine (Lantus) 20 unit SC [facility] Last Admin: 05/05/18 21:45 Dose: 20 units Insulin Human Regular (Novolin R) 0 unit SC [facility] PRN Reason: Protocol Last Admin: 05/06/18 16:59 Dose: Not Given Insulin Human Regular (Novolin R) [facility] Mesalamine (Delzicol Dr) 400 mg PO TID [facility] Last Admin: 05/06/18 17:48 Dose: 400 mg Morphine Sulfate (Morphine) 1 mg IVP Q6 PRN PRN Reason: Pain, Mild (1-3) Last Admin: 05/06/18 16:57 Dose: 1 mg Quetiapine Fumarate (Seroquel) 50 mg PO DAILY [facility] Last Admin: 05/06/18 10:36 Dose: 50 mg Trazodone HCl (Desyrel) 50 mg PO HS [facility] Last Admin: 05/05/18 21:44 Dose: 50 mg - Labs Labs: 05/06/18 11:35 05/06/18 13:22
[2018-05-06] MEDS: (Lantus) Insulin Glargine, Recombinant SC SCH (21:44)
--- NOTE | 2018-05-07 07:55 | CON ---
DATE: 05/06/2018 I was called for a GI consultation by the primary MD. The patient is seen and fully examined on 05/06/2018. The entire chart is reviewed including, but not limited to most recent lab and radiology study results, current and the previous medication list, current and the previous medical events, allergy to medication list as well as all the available current and the previous medical records. Case discussed with the staff in the floor at length post my GI consultation on 05/06/2018. HISTORY OF PRESENT ILLNESS: This is a 27-year-old male who was admitted to the hospital with a main complaint of abdominal pain, reported diarrhea, generalized malaise, was found to have excessive elevation of blood glucose level with episodes of nausea, but no reported active bleeding. No chest pain, palpitation, or significant complaint of shortness of breath. PAST MEDICAL HISTORY: Including mainly, but not limited to: 1. Crohn's disease. 2. Type 1 diabetes mellitus. 3. Reported history of hypertension, bipolar disorder, depression, severe anxiety syndrome. Apparently, the patient had a history of perianal abscess formation, treated surgically before in 11/2017. SOCIAL HISTORY: No known history of cigarette smoking or alcohol intake. CURRENT MEDICATIONS: Post admission medication lists were reviewed. FAMILY HISTORY: Noncontributory. ALLERGIES TO MEDICATIONS: UNCLEAR. LABORATORY DATA: After being admitted to the hospital, the patient was found to have initially normal CBC, but original blood glucose level was 924. Sodium 125, CO2 content 16 indicative of diabetic ketoacidosis with severe metabolic acidosis. PHYSICAL EXAMINATION: GENERAL: A 27-year-old male appears to be awake, alert, afebrile with pulse of 64, respiratory rate 16-18 with blood pressure of 130/74. HEENT: Showed pale dry oral mucous membrane. Nonicteric sclerae. LYMPH NODES: No lymphadenitis or lymphadenopathy. LUNGS: Few scattered crepitation with decreased air entry at bases. HEART: Positive S1 and S2. ABDOMEN: Soft, slight generalized tenderness. No mass or organomegaly. No rebound tenderness or guarding. RECTAL: The patient refused. EXTREMITIES: Without significant clubbing, cyanosis, or edema. NEUROLOGIC: No reported new neurological deficits, sensory or motor. It has to be mentioned that the patient was admitted initially to the intensive care unit due to his severe metabolic acidosis and his blood glucose level has been well controlled since. IMPRESSION: 1. Poorly controlled diabetes mellitus with severe ketoacidosis, improved clinically and biochemically. 2. Re-exacerbation of inflammatory bowel disease. 3. Diarrhea that could be secondary to his inflammatory bowel disease versus infectious diarrhea. The possibility of diabetic diarrhea was strongly raised. 4. Re-exacerbation of peptic ulcer disease. 5. Multiple past medical history as indicated above. SUGGESTIONS: 1. Agree with your plan. 2. Repeat complete stool workup. 3. Sedimentation rate. 4. Add cholestyramine powder. 5. Add pancreatic enzymes, Creon 36,000 units, 1 capsule twice a day to three times a day with meals. 6. If the patient's diabetes level is controlled, then IV steroids should be kept in mind. 7. Sectional abdominal and pelvic CT scan. Thank you for letting me to participate in your patient's case management. We will follow up closely with you. The patient may need followup colonoscopy only when he is more stable clinically. Valentine Choudhury MD
[2018-05-07] MEDS: (Novolin R) Insulin Human Regular 100 units/ml vial SC SCH ×7 (08:34→21:24)
[2018-05-07] MEDS: LIPASE/PROTEASE/AMYLASE 21,000 U ECC PO SCH ×2 (09:12→17:09)
[2018-05-07] MEDS: Cholestyramine 4 gm/Pkt UD PO SCH ×2 (10:00→17:08)
--- NOTE | 2018-05-07 14:36 | PN ---
DATE: 05/07/2018 LOCATION: 369, bed A. SUBJECTIVE: This is a 27-year-old male seen and examined in rounds with reported low blood glucose level and then subsequently it went up after dextrose 50% one amp was given, with less complaint of crampy abdominal pain, less episode of diarrhea, had been on morphine. The entire chart is reviewed including but not limited to the most recent lab and radiology results is seen. PHYSICAL EXAMINATION: GENERAL: A 27-year-old male, awake, alert, oriented. VITAL SIGNS: Afebrile with heart rate of 92, respiratory rate 20 to 22, blood pressure of 116/74. HEENT: Showed pale, dry oral mucous membrane. Nonicteric sclerae. LUNGS: Few scattered crepitation. Decreased air entry at bases. HEART: Positive S1 and S2 with increased rate. ABDOMEN: Soft with mild distention and slight generalized tenderness. No mass or organomegaly. No rebound tenderness or guarding. LABORATORY DATA: The latest blood glucose level reported early today was 435. IMPRESSION: 1. Re-exacerbation of inflammatory bowel disease. 2. Poorly-controlled diabetes mellitus with diabetic ketoacidosis. SUGGESTIONS: Further recommendation to follow. Valentine Choudhury MD
[2018-05-07] MEDS: (Lantus) Insulin Glargine, Recombinant SC SCH (21:27)
[2018-05-07] MEDS: Dextrose 50% SYRINGE Inj (50 ml) IV PRN (22:56)
[2018-05-08] MEDS: LIPASE/PROTEASE/AMYLASE 21,000 U ECC PO SCH ×2 (08:09→17:20)
[2018-05-08] MEDS: (Novolin R) Insulin Human Regular 100 units/ml vial SC SCH ×5 (08:09→21:50)
--- NOTE | 2018-05-08 11:36 | PN ---
DATE: 05/07/2018 SUBJECTIVE: The patient is more alert. He is afebrile. No nausea or vomiting. Blood sugars are down. He feels much better. His diarrhea has improved. He denies any abdominal pain, nausea, or vomiting. He denies any cough or sore throat. PHYSICAL EXAMINATION: VITAL SIGNS: BP 102/65, pulse 76, respiratory rate 20, and temperature 98.2. LUNGS: Clear. No rales. No rhonchi. CVS: S1 and S2 regular. ABDOMEN: Soft. ASSESSMENT: 1. Diabetic ketoacidosis, resolved. 2. Acute excerebration of Crohn disease, improving. 3. Dehydration. 4. Malnutrition. PLAN: Continue sliding scale. Blood sugar controlled. Monitor the patient. Roshan Loving MD
[2018-05-08] MEDS ORDERED: Dextrose 50% SYRINGE Inj (50 ml) ONE (16:23)
[2018-05-08] MEDS: Cholestyramine 4 gm/Pkt UD PO SCH (17:21)
[2018-05-08] MEDS: (Lantus) Insulin Glargine, Recombinant SC SCH (21:48)
--- NOTE | 2018-05-08 22:20 | CP.PCM.PN ---
Subjective - Date & Time of Evaluation Date of Evaluation: 05/08/18 Time of Evaluation: 22:17 - Subjective Subjective: uncontrolled type1 DM Objective - Vital Signs/Intake and Output Vital Signs (last 24 hours): Temp Pulse Resp BP Pulse Ox 98.2 F 83 20 98/61 L 96 05/08/18 17:35 05/08/18 17:35 05/08/18 17:35 05/08/18 17:35 05/08/18 17:35 Intake and Output: 05/08/18 05/09/18 18:59 06:59 Intake Total 600 Balance 600 - Medications Medications: Current Medications Cholestyramine Resin (Questran) 4 gm PO BID [facility] Stop: 05/15/18 18:01 Last Admin: 05/08/18 17:21 Dose: 4 gm Dextrose (Glutose 15) 0 gm PO ONCE PRN; Protocol PRN Reason: Hypoglycemia Protocol Dextrose (Dextrose 50% Inj) 0 ml IV STAT PRN; Protocol PRN Reason: Hypoglycemia Protocol Last Admin: 05/07/18 22:56 Dose: 50 ml Dicyclomine HCl (Bentyl) 10 mg PO QID [facility] Last Admin: 05/08/18 21:49 Dose: 10 mg Glucagon (Glucagen Diagnostic Kit) 0 mg IM STAT PRN; Protocol PRN Reason: Hypoglycemia Protocol Insulin Glargine (Lantus) 15 unit SC BID [facility] Insulin Human Regular (Novolin R) 0 unit SC A[facility]; Protocol Last Admin: 05/08/18 21:50 Dose: Not Given Insulin Human Regular (Novolin R) 7 unit SC [facility] Mesalamine (Delzicol Dr) 400 mg PO TID [facility] Last Admin: 05/08/18 17:20 Dose: 400 mg Morphine Sulfate (Morphine) 1 mg IVP Q6 PRN PRN Reason: Pain, Mild (1-3) Last Admin: 05/08/18 20:50 Dose: 1 mg Quetiapine Fumarate (Seroquel) 50 mg PO DAILY [facility] Last Admin: 05/07/18 09:12 Dose: 50 mg Trazodone HCl (Desyrel) 50 mg PO HS [facility] Last Admin: 05/08/18 21:50 Dose: 50 mg - Labs Labs: 05/06/18 11:35 05/06/18 13:22 Assessment and Plan (1) DM I (diabetes mellitus, type I), uncontrolled Assessment & Plan: Assessment & Plan: Endocrine consult f/u for uncontrolled type 1 DM is 27 y/o known to endocrine with recurrent admission for DKA , admitted for DKA with glucose 900! s/p isulin drip pt with type 1 diabetes complicated with neuropathy /gastroparesis , retinopathy ,/with cataract , (-) nephropathy (-) CAD (-) PVD as per pt. felt sick 2 days ago slept the whole day with out taking insulin the following day his mom wake him up & checked his sugar found it high & brought him to ICU blood glucose log : 170-300 symptomatic hypoglycemia 40's s/p D50 repeat 200 , as per nurse in charge , he eats 100 % , non stop eating ! Allergy NKDA Past medical history: croh's disease Past surgical history: denies Psychiatry history: (+) psychiatry disorder Social history : denies smoking , ETOH use , illicit drug use Family history : irrelvant ROS: Constitutional: denies fever, tiredness/weakness. HEENT: denies earache, change in voice .Respiratory: denies cough, sob . CVS :no chest pain, no palpitations . Abdomen: no abdominal pain, no nausea /vomiting, no change bowel movement. FITNESS AND WELLNESS COORDINATOR : denies light-headedness, dizziness. Extremities: no edema, no tremors. Skin: no itching, no rash Physical exam Well-developed AAO x3 , ,NAD VSS HEENT: norm cephalic, atraumatic, no lid lag , no exophthalmos ,poor dental hygiene NECK: supple, no palpable lymphadenopathy THYROID: no palpable thyromegaly, not tender CHEST: fair air entry, bilateral, CVS: S1,S2 ABDOMEN: bowel sound present, benign, obese, no wide purple striae , no bruises EXTREMITIES: no edema, clubbing or cyanosis, no palpable hand tremors Skin: no acanthosis nigricans , (+) tattoo lab: 03/2018 a1c 15.7 , TSH 1.39 Assessment recurrent sever hypoglycemia uncontrolled type 1 diabetes with neuropathy /gastroparesis & retinopathy s/p DKA plan change lantus 15 units @ 8am & 8pm continue Novoloin R low dose coverage, no 3 am coverage decrease Novoloin R 7 units tid with meals if eat > 60% we will follow with you. Status: Chronic (2) Hypoglycemia due to type 1 diabetes mellitus Status: Acute
[2018-05-09] MEDS: Vitamins A & D Oint UD Foilpak TOP ONE (01:51)
[2018-05-09] MEDS ORDERED: Dextrose 50% SYRINGE Inj (50 ml) IV STA (02:42)
[2018-05-09] MEDS: (Novolin R) Insulin Human Regular 100 units/ml vial SC SCH ×7 (08:47→21:17)
[2018-05-09] MEDS: LIPASE/PROTEASE/AMYLASE 21,000 U ECC PO SCH ×2 (09:07→17:23)
[2018-05-09] MEDS: Cholestyramine 4 gm/Pkt UD PO SCH ×2 (09:07→17:23)
[2018-05-09] MEDS: (Lantus) Insulin Glargine, Recombinant SC SCH ×2 (09:20→18:00)
--- NOTE | 2018-05-09 17:15 | CP.PCM.PN ---
Objective - Vital Signs/Intake and Output Vital Signs (last 24 hours): Temp Pulse Resp BP Pulse Ox 98 F 78 20 125/82 98 05/09/18 16:00 05/09/18 16:00 05/09/18 16:00 05/09/18 16:00 05/09/18 16:00 Intake and Output: 05/09/18 05/09/18 06:59 18:59 Intake Total 400 Balance 400 - Medications Medications: Current Medications Cholestyramine Resin (Questran) 4 gm PO BID [facility] Stop: 05/15/18 18:01 Last Admin: 05/09/18 09:07 Dose: 4 gm Dextrose (Glutose 15) 0 gm PO ONCE PRN; Protocol PRN Reason: Hypoglycemia Protocol Dextrose (Dextrose 50% Inj) 0 ml IV STAT PRN; Protocol PRN Reason: Hypoglycemia Protocol Last Admin: 05/07/18 22:56 Dose: 50 ml Dicyclomine HCl (Bentyl) 10 mg PO QID [facility] Last Admin: 05/09/18 14:28 Dose: 10 mg Glucagon (Glucagen Diagnostic Kit) 0 mg IM STAT PRN; Protocol PRN Reason: Hypoglycemia Protocol Insulin Glargine (Lantus) 15 unit SC BID [facility] Last Admin: 05/09/18 09:20 Dose: 15 units Insulin Human Regular (Novolin R) 0 unit SC [facility]; Protocol Last Admin: 05/09/18 13:00 Dose: Not Given Insulin Human Regular (Novolin R) 7 unit SC [facility] Last Admin: 05/09/18 13:01 Dose: Not Given Mesalamine (Delzicol Dr) 400 mg PO TID [facility] Last Admin: 05/09/18 14:28 Dose: 400 mg Morphine Sulfate (Morphine) 1 mg IVP Q6 PRN PRN Reason: Pain, Mild (1-3) Quetiapine Fumarate (Seroquel) 50 mg PO DAILY [facility] Last Admin: 05/09/18 09:08 Dose: 50 mg Trazodone HCl (Desyrel) 50 mg PO HS [facility] Last Admin: 05/08/18 21:50 Dose: 50 mg - Labs Labs: 05/06/18 11:35 05/06/18 13:22
--- NOTE | 2018-05-09 17:15 | CP.PCM.PN ---
Subjective - Date & Time of Evaluation Date of Evaluation: 05/08/18 Objective - Vital Signs/Intake and Output Vital Signs (last 24 hours): Temp Pulse Resp BP Pulse Ox 98 F 78 20 125/82 98 05/09/18 16:00 05/09/18 16:00 05/09/18 16:00 05/09/18 16:00 05/09/18 16:00 Intake and Output: 05/09/18 05/09/18 06:59 18:59 Intake Total 400 Balance 400 - Medications Medications: Current Medications Cholestyramine Resin (Questran) 4 gm PO BID [facility] Stop: 05/15/18 18:01 Last Admin: 05/09/18 09:07 Dose: 4 gm Dextrose (Glutose 15) 0 gm PO ONCE PRN; Protocol PRN Reason: Hypoglycemia Protocol Dextrose (Dextrose 50% Inj) 0 ml IV STAT PRN; Protocol PRN Reason: Hypoglycemia Protocol Last Admin: 05/07/18 22:56 Dose: 50 ml Dicyclomine HCl (Bentyl) 10 mg PO QID [facility] Last Admin: 05/09/18 14:28 Dose: 10 mg Glucagon (Glucagen Diagnostic Kit) 0 mg IM STAT PRN; Protocol PRN Reason: Hypoglycemia Protocol Insulin Glargine (Lantus) 15 unit SC BID [facility] Last Admin: 05/09/18 09:20 Dose: 15 units Insulin Human Regular (Novolin R) 0 unit SC [facility]; Protocol Last Admin: 05/09/18 13:00 Dose: Not Given Insulin Human Regular (Novolin R) 7 unit SC [facility] Last Admin: 05/09/18 13:01 Dose: Not Given Mesalamine (Delzicol Dr) 400 mg PO TID [facility] Last Admin: 05/09/18 14:28 Dose: 400 mg Morphine Sulfate (Morphine) 1 mg IVP Q6 PRN PRN Reason: Pain, Mild (1-3) Quetiapine Fumarate (Seroquel) 50 mg PO DAILY [facility] Last Admin: 05/09/18 09:08 Dose: 50 mg Trazodone HCl (Desyrel) 50 mg PO HS [facility] Last Admin: 05/08/18 21:50 Dose: 50 mg - Labs Labs: 05/06/18 11:35 05/06/18 13:22
--- NOTE | 2018-05-09 17:15 | CP.PCM.PN ---
Subjective - Date & Time of Evaluation Date of Evaluation: 05/08/18 Objective - Vital Signs/Intake and Output Vital Signs (last 24 hours): Temp Pulse Resp BP Pulse Ox 98 F 78 20 125/82 98 05/09/18 16:00 05/09/18 16:00 05/09/18 16:00 05/09/18 16:00 05/09/18 16:00 Intake and Output: 05/09/18 05/09/18 06:59 18:59 Intake Total 400 Balance 400 - Medications Medications: Current Medications Cholestyramine Resin (Questran) 4 gm PO BID [facility] Stop: 05/15/18 18:01 Last Admin: 05/09/18 09:07 Dose: 4 gm Dextrose (Glutose 15) 0 gm PO ONCE PRN; Protocol PRN Reason: Hypoglycemia Protocol Dextrose (Dextrose 50% Inj) 0 ml IV STAT PRN; Protocol PRN Reason: Hypoglycemia Protocol Last Admin: 05/07/18 22:56 Dose: 50 ml Dicyclomine HCl (Bentyl) 10 mg PO QID [facility] Last Admin: 05/09/18 14:28 Dose: 10 mg Glucagon (Glucagen Diagnostic Kit) 0 mg IM STAT PRN; Protocol PRN Reason: Hypoglycemia Protocol Insulin Glargine (Lantus) 15 unit SC BID [facility] Last Admin: 05/09/18 09:20 Dose: 15 units Insulin Human Regular (Novolin R) 0 unit SC [facility]; Protocol Last Admin: 05/09/18 13:00 Dose: Not Given Insulin Human Regular (Novolin R) 7 unit SC TIDPC [facility] Last Admin: 05/09/18 13:01 Dose: Not Given Mesalamine (Delzicol Dr) 400 mg PO TID [facility] Last Admin: 05/09/18 14:28 Dose: 400 mg Morphine Sulfate (Morphine) 1 mg IVP Q6 PRN PRN Reason: Pain, Mild (1-3) Quetiapine Fumarate (Seroquel) 50 mg PO DAILY [facility] Last Admin: 05/09/18 09:08 Dose: 50 mg Trazodone HCl (Desyrel) 50 mg PO HS [facility] Last Admin: 05/08/18 21:50 Dose: 50 mg - Labs Labs: 05/06/18 11:35 05/06/18 13:22
--- NOTE | 2018-05-09 20:53 | PN ---
DATE: 05/09/2018 LOCATION: 369, bed A. SUBJECTIVE: This is a 27-year-old male seen early in rounds without significant clinical changes, but with episodes of hypoglycemia early this morning without any clear evidence of mental status changes. No reported diarrhea, nausea or vomiting; tolerating oral intake well. The entire chart is reviewed including but not limited to the most recent lab and radiology study results, current and the previous medication list, current and the previous medical events. Case discussed with the staff at length. LABORATORY DATA: Today's lab results show blood glucose level the latest is 156 after more than one of episode of hypoglycemia before. PHYSICAL EXAMINATION: GENERAL: A 27-year-old male, awake, alert and oriented. VITAL SIGNS: Afebrile with pulse of 86, respiratory rate 20 to 22, blood pressure of 110/68. HEENT: Showed pale, dry oral mucous membrane. Nonicteric sclerae. HEART: Positive S1 and S2. ABDOMEN: Soft with slight generalized tenderness. No mass or organomegaly. No rebound tenderness or guarding. EXTREMITIES: Without significant clubbing, cyanosis or edema. NEUROLOGICAL: No reported new neurological deficits, sensory or motor. IMPRESSION: 1. Poorly-controlled diabetes mellitus with recently diagnosed diabetic ketoacidosis. 2. Known history of Crohn disease, stable so far. 3. Intermittent period of hypoglycemia. SUGGESTIONS: 1. Continue current management. 2. Sectional abdominal and pelvic CAT scan. 3. Sedimentation rate. 4. The patient may need followup colonoscopy when he is more stable clinically in addition to small dose of steroids IV. We will follow up closely with you. Valentine Choudhury MD
--- NOTE | 2018-05-09 22:05 | CP.PCM.PN ---
Objective - Vital Signs/Intake and Output Vital Signs (last 24 hours): Temp Pulse Resp BP Pulse Ox 98 F 78 20 125/82 98 05/09/18 16:00 05/09/18 16:00 05/09/18 16:00 05/09/18 16:00 05/09/18 16:00 - Medications Medications: Current Medications Cholestyramine Resin (Questran) 4 gm PO BID [facility] Stop: 05/15/18 18:01 Last Admin: 05/09/18 17:23 Dose: 4 gm Dextrose (Glutose 15) 0 gm PO ONCE PRN; Protocol PRN Reason: Hypoglycemia Protocol Dextrose (Dextrose 50% Inj) 0 ml IV STAT PRN; Protocol PRN Reason: Hypoglycemia Protocol Last Admin: 05/07/18 22:56 Dose: 50 ml Dicyclomine HCl (Bentyl) 10 mg PO QID [facility] Last Admin: 05/09/18 21:11 Dose: 10 mg Glucagon (Glucagen Diagnostic Kit) 0 mg IM STAT PRN; Protocol PRN Reason: Hypoglycemia Protocol Insulin Glargine (Lantus) 15 unit SC BID [facility] Last Admin: 05/09/18 18:00 Dose: 15 units Insulin Human Regular (Novolin R) 0 unit SC ACHS [facility]; Protocol Last Admin: 05/09/18 21:17 Dose: Not Given Insulin Human Regular (Novolin R) 7 unit SC TIDPC [facility] Last Admin: 05/09/18 18:00 Dose: 7 units Mesalamine (Delzicol Dr) 400 mg PO TID [facility] Last Admin: 05/09/18 17:24 Dose: 400 mg Morphine Sulfate (Morphine) 1 mg IVP Q6 PRN PRN Reason: Pain, Mild (1-3) Last Admin: 05/09/18 16:35 Dose: 1 mg Quetiapine Fumarate (Seroquel) 50 mg PO DAILY [facility] Last Admin: 05/09/18 09:08 Dose: 50 mg Trazodone HCl (Desyrel) 50 mg PO HS [facility] Last Admin: 05/09/18 21:11 Dose: 50 mg - Labs Labs: 05/06/18 11:35 05/06/18 13:22
[2018-05-09] MEDS ORDERED: Dextrose 50% SYRINGE Inj (50 ml) ONE (22:26)
[2018-05-10 06:29] LABS: HEMOGLOBIN 13.2 g/dL (12.0-18.0); MEAN CELL VOLUME 87.5 fL (80.0-94.0); MEAN CORPUSCULAR HEMOGLOBIN 29.5 pg (27.0-31.0); MEAN CORPUSCULAR HGB CONC 33.8 g/dL (33.0-37.0); MEAN PLATELET VOLUME 9.2 fL (7.2-11.7); RBC 4.47 Mil/uL (4.40-5.90); RED CELL DISTRIBUTION WIDTH 14.1 % (11.5-14.5); WHITE BLOOD COUNT 7.4 K/uL (4.8-10.8)
[2018-05-10 06:50] LABS: BLOOD UREA NITROGEN 23 mg/dL (9-20); CALCIUM 9.5 mg/dl (8.6-10.4); GFR NON-AFRICAN AMERICAN > 60
--- NOTE | 2018-05-10 07:25 | PN ---
DATE: 05/09/2018 SUBJECTIVE: The patient is feeling better. His sugars are down. His diarrhea is less. No fever. No chills. PHYSICAL EXAMINATION: VITAL SIGNS: BP 125/82, pulse 78, respiratory rate 20, temperature 98. LUNGS: Decreased air entry. Clear. ABDOMEN: Soft and nontender. Bowel sounds not exaggerated. ASSESSMENT: 1. Crohn's disease. 2. Dehydration. 3. Diabetic ketoacidosis. 4. Malnutrition. PLAN: Accu-Check, sliding scale. Monitor patient. Roshan Loving MD
[2018-05-10] MEDS: LIPASE/PROTEASE/AMYLASE 21,000 U ECC PO SCH ×2 (08:41→17:30)
[2018-05-10] MEDS: (Lantus) Insulin Glargine, Recombinant SC SCH ×3 (08:46→17:31)
[2018-05-10] MEDS: (Novolin R) Insulin Human Regular 100 units/ml vial SC SCH ×7 (08:49→22:24)
[2018-05-10] MEDS: Cholestyramine 4 gm/Pkt UD PO SCH ×3 (08:52→17:30)
--- NOTE | 2018-05-10 11:30 | CP.PCM.CON ---
History of Present Illness - History of Present Illness History of Present Illness: Podiatry Consult note: Dr. Cuevas 27 year old male with PMHx of IDDM type 1, bipolar, schizophrenia, major depression, peripheral blindness both eyes, deaf in left ear, peripheral neuropathy, crohn's disease was seen and evaluated for bilateral lower extremity evaluation. Patient is AAOx3 and appears in NAD at the time of the visit. Patient reports that he has very long nails which he does not do anything for because his feet are very sensitive. Patient admits to numbness and tingling to his feet. Reports that he has a primary care doctor who he follows up with on regular basis. States that he is compliant with his diabetes medications as well as others. Denies of any recent F/N/V/C/SOB/CP/headache. No other pedal complains at this time. PMHx: IDDM type 1, bipolar, schizophrenia, major depression, peripheral blindness both eyes, deaf in left ear, peripheral neuropathy, crohn's disease PSHx: Facial surgery, anal Cystectomy Allergies: NKDA Meds: In chart SHx: Agrees to smoking weed 3 times a week for pain control, denies EtOH or illicit drug usage Review of Systems - Constitutional Constitutional: As Per HPI Past Patient History - Infectious Disease Hx of Infectious Diseases: None - Past Medical History & Family History Past Medical History?: Yes - Past Social History Smoking Status: Never Smoked - CARDIAC Hx Cardiac Disorders: Yes Hx Hypertension: Yes - PULMONARY Hx Respiratory Disorders: No - NEUROLOGICAL Hx Neurological Disorder: Yes Other/Comment: Neuropathy - HEENT Hx HEENT Problems: Yes 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) - RENAL Hx Chronic Kidney Disease: No - ENDOCRINE/METABOLIC Hx Endocrine Disorders: Yes Hx Diabetes Mellitus Type 1: Yes (insulin dependent) - HEMATOLOGICAL/ONCOLOGICAL Hx Blood Disorders: No - INTEGUMENTARY Hx Dermatological Problems: No - MUSCULOSKELETAL/RHEUMATOLOGICAL Hx Falls: No - GASTROINTESTINAL Hx Gastrointestinal Disorders: Yes Hx Crohn's Disease: Yes - GENITOURINARY/GYNECOLOGICAL Hx Genitourinary Disorders: No - PSYCHIATRIC Hx Substance Use: Yes - SURGICAL HISTORY Hx Surgeries: Yes Other/Comment: wired Jaw-As per patient today 04/10/2018, he has had rectal surgery x 2.and facial surgery. - ANESTHESIA Hx Anesthesia: Yes Hx Anesthesia Reactions: No Hx Malignant Hyperthermia: No Has any member of the family had a problem w/ anesthesia?: No Meds Allergies/Adverse Reactions: Allergies Allergy/AdvReac Type Severity Reaction Status Date / Time No Known Allergies Allergy Verified 04/10/18 17:22 - Medications Medications: Current Medications Cholestyramine Resin (Questran) 4 gm PO BID [facility] Stop: 05/15/18 18:01 Last Admin: 05/10/18 11:15 Dose: Not Given Dextrose (Glutose 15) 0 gm PO ONCE PRN; Protocol PRN Reason: Hypoglycemia Protocol Dextrose (Dextrose 50% Inj) 0 ml IV STAT PRN; Protocol PRN Reason: Hypoglycemia Protocol Last Admin: 05/07/18 22:56 Dose: 50 ml Dicyclomine HCl (Bentyl) 10 mg PO QID [facility] Last Admin: 05/10/18 11:16 Dose: Not Given Glucagon (Glucagen Diagnostic Kit) 0 mg IM STAT PRN; Protocol PRN Reason: Hypoglycemia Protocol Insulin Glargine (Lantus) 15 unit SC BID [facility] Last Admin: 05/10/18 11:14 Dose: Not Given Insulin Human Regular (Novolin R) 0 unit SC ACHS [facility]; Protocol Last Admin: 05/10/18 08:49 Dose: 1 units Insulin Human Regular (Novolin R) 7 unit SC TIDPC [facility] Last Admin: 05/10/18 08:51 Dose: 7 units Mesalamine (Delzicol Dr) 400 mg PO TID [facility] Last Admin: 05/10/18 11:15 Dose: Not Given Morphine Sulfate (Morphine) 1 mg IVP Q6 PRN PRN Reason: Pain, Mild (1-3) Last Admin: 05/10/18 06:18 Dose: 1 mg Quetiapine Fumarate (Seroquel) 50 mg PO DAILY [facility] Last Admin: 05/10/18 11:15 Dose: Not Given Trazodone HCl (Desyrel) 50 mg PO HS [facility] Last Admin: 05/09/18 21:11 Dose: 50 mg Physical Exam - Constitutional Appears: Well, Non-toxic, No Acute Distress - Extremities Exam Additional comments: Bilateral LE exam VASC: DP/PT pulses are palpable 2/4, Cap refill time: < 3 sec to all digits, Temp gradient is warm to cool from proximal to distal, no pitting or non-pitting edema noted DERM: diffuse xerosis, no open lesions, no erythema, no inter-digital maceration, no cuts or breaks in the skin, nails are elongated and dystrophic and discolored x 10 NEURO: protective sensation grossly diminished ORTHO: Normal ROM at the MTPJ and AJ - Neurological Exam Neurological exam: Alert, Oriented x3 - Psychiatric Exam Psychiatric exam: Normal Affect, Normal Mood Results - Vital Signs Recent Vital Signs: Last Vital Signs Temp 98.8 F 05/10/18 08:00 Pulse 88 05/10/18 08:00 Resp 20 05/10/18 08:00 BP 114/71 05/10/18 08:00 Pulse Ox 99 05/10/18 08:00 - Labs Result Diagrams: 05/10/18 06:23 05/10/18 06:23 Labs: Laboratory Results - last 24 hr 05/09/18 05/09/18 05/09/18 13:00 16:09 20:58 WBC RBC Hgb Hct MCV MCH MCHC RDW Plt Count MPV Sodium Potassium Chloride Carbon Dioxide Anion Gap BUN Creatinine Est GFR ( Amer) Est GFR (Non-Af Amer) POC Glucose (mg/dL) 293 H 196 H 282 H Random Glucose Calcium Magnesium 05/09/18 05/09/18 05/09/18 22:20 22:21 22:45 WBC RBC Hgb Hct MCV MCH MCHC RDW Plt Count MPV Sodium Potassium Chloride Carbon Dioxide Anion Gap BUN Creatinine Est GFR ( Amer) Est GFR (Non-Af Amer) POC Glucose (mg/dL) 28 L* 34 L* 238 H Random Glucose Calcium Magnesium 05/10/18 05/10/18 05/10/18 02:16 06:23 06:23 WBC 7.4 RBC 4.47 Hgb 13.2 Hct 39.1 MCV 87.5 MCH 29.5 MCHC 33.8 RDW 14.1 Plt Count 210 MPV 9.2 Sodium 139 Potassium 5.1 Chloride 100 Carbon Dioxide 29 Anion Gap 15 BUN 23 H Creatinine 0.7 L Est GFR ( Amer) > 60 Est GFR (Non-Af Amer) > 60 POC Glucose (mg/dL) 76 Random Glucose 179 H Calcium 9.5 Magnesium 2.1 05/10/18 05/10/18 07:12 11:17 WBC RBC Hgb Hct MCV MCH MCHC RDW Plt Count MPV Sodium Potassium Chloride Carbon Dioxide Anion Gap BUN Creatinine Est GFR ( Amer) Est GFR (Non-Af Amer) POC Glucose (mg/dL) 179 H 469 H* Random Glucose Calcium Magnesium Assessment & Plan - Assessment and Plan (Free Text) Assessment: 27 year old male with PMHx of IDDM type 1, bipolar, schizophrenia, major depression, peripheral blindness both eyes, deaf in left ear, peripheral neuropathy, crohn's disease was evaluated for bilateral LE evaluation Plan: Patient seen and evaluated Discussed plan with attending Dr. Cuevas Labs, vitals and charts reviewed - afebrile, no leukocytosis Ammonium lactate cream ordered - to be applied to bilateral feet daily Will debride nails using sterile clippers Stable from podiatry standpoint Thank you for the podiatry consult and allowing to take part in patient care - Date & Time Date: 05/10/18 Time: 11:35
--- NOTE | 2018-05-10 14:40 | CP.PCM.PN ---
Subjective - Date & Time of Evaluation Date of Evaluation: 05/10/18 Time of Evaluation: 13:00 - Subjective Subjective: Patient seen today, denies any chest pain, sob, dizziness, abdominal pain improved, less diarrhea , tolerating diet , wants to go home BS - stable - todays labs - reviewed - WNL Objective - Vital Signs/Intake and Output Vital Signs (last 24 hours): Temp Pulse Resp BP Pulse Ox 98.8 F 88 20 114/71 99 05/10/18 08:00 05/10/18 08:00 05/10/18 08:00 05/10/18 08:00 05/10/18 08:00 - Medications Medications: Current Medications Cholestyramine Resin (Questran) 4 gm PO BID [facility] Stop: 05/15/18 18:01 Last Admin: 05/10/18 11:15 Dose: Not Given Dextrose (Glutose 15) 0 gm PO ONCE PRN; Protocol PRN Reason: Hypoglycemia Protocol Dextrose (Dextrose 50% Inj) 0 ml IV STAT PRN; Protocol PRN Reason: Hypoglycemia Protocol Last Admin: 05/07/18 22:56 Dose: 50 ml Dicyclomine HCl (Bentyl) 10 mg PO QID [facility] Last Admin: 05/10/18 12:59 Dose: 10 mg Glucagon (Glucagen Diagnostic Kit) 0 mg IM STAT PRN; Protocol PRN Reason: Hypoglycemia Protocol Insulin Glargine (Lantus) 15 unit SC BID [facility] Last Admin: 05/10/18 11:14 Dose: Not Given Insulin Human Regular (Novolin R) 0 unit SC ACHS [facility]; Protocol Last Admin: 05/10/18 12:54 Dose: 6 units Insulin Human Regular (Novolin R) 7 unit SC TIDPC [facility] Last Admin: 05/10/18 12:54 Dose: 7 units Lactic Acid (Lac-Hydrin 12% Lotion (225 G)) 0 gm EXT DAILY [facility] Mesalamine (Delzicol Dr) 400 mg PO TID [facility] Last Admin: 05/10/18 12:59 Dose: 400 mg Morphine Sulfate (Morphine) 1 mg IVP Q6 PRN PRN Reason: Pain, Mild (1-3) Last Admin: 05/10/18 12:47 Dose: 1 mg Quetiapine Fumarate (Seroquel) 50 mg PO DAILY [facility] Last Admin: 05/10/18 11:15 Dose: Not Given Trazodone HCl (Desyrel) 50 mg PO HS [facility] Last Admin: 05/09/18 21:11 Dose: 50 mg - Labs Labs: 05/10/18 06:23 05/10/18 06:23 Assessment and Plan - Assessment and Plan (Free Text) Assessment: A/P 27 yr old male with pmhx of Anxiety, Bipolar Disorder, Crohn's Disease, Depression, Diabetes (Type 1), admitted with DKA BS stable - below 200 labs reviewed - WNL D/w Dr. Loving,cleared fro discharge home otday an df/u with Dr. Loving offic ein 1 week Discharge plan discussed with patient who understands and agrees with plan patients instructed to returns to ED if symptoms returns or ay other concerning symptoms RX e [facility]
--- NOTE | 2018-05-10 20:28 | CP.PCM.PN ---
Subjective - Date & Time of Evaluation Date of Evaluation: 05/10/18 Time of Evaluation: 20:23 - Subjective Subjective: uncontrolled ype 1 dm with recurrent hypoglycemia Objective - Vital Signs/Intake and Output Vital Signs (last 24 hours): Temp Pulse Resp BP Pulse Ox 97.8 F 115 H 20 124/73 99 05/10/18 16:18 05/10/18 16:18 05/10/18 16:18 05/10/18 16:18 05/10/18 16:18 - Medications Medications: Current Medications Cholestyramine Resin (Questran) 4 gm PO BID [facility] Stop: 05/15/18 18:01 Last Admin: 05/10/18 17:30 Dose: 4 gm Dextrose (Glutose 15) 0 gm PO ONCE PRN; Protocol PRN Reason: Hypoglycemia Protocol Dextrose (Dextrose 50% Inj) 0 ml IV STAT PRN; Protocol PRN Reason: Hypoglycemia Protocol Last Admin: 05/07/18 22:56 Dose: 50 ml Dicyclomine HCl (Bentyl) 10 mg PO QID [facility] Last Admin: 05/10/18 17:30 Dose: 10 mg Glucagon (Glucagen Diagnostic Kit) 0 mg IM STAT PRN; Protocol PRN Reason: Hypoglycemia Protocol Insulin Glargine (Lantus) 15 unit SC BID [facility] Last Admin: 05/10/18 17:31 Dose: Not Given Insulin Human Regular (Novolin R) 0 unit SC ACHS [facility]; Protocol Last Admin: 05/10/18 17:02 Dose: Not Given [facility] Last Admin: 05/10/18 17:31 Dose: Not Given Lactic Acid (Lac-Hydrin 12% Lotion (225 G)) 0 gm EXT DAILY [facility] Mesalamine (Delzicol Dr) 400 mg PO TID [facility] Last Admin: 05/10/18 17:30 Dose: 400 mg Morphine Sulfate (Morphine) 1 mg IVP Q6 PRN PRN Reason: Pain, Mild (1-3) Last Admin: 05/10/18 12:47 Dose: 1 mg Quetiapine Fumarate (Seroquel) 50 mg PO DAILY [facility] Last Admin: 05/10/18 11:15 Dose: Not Given Trazodone HCl (Desyrel) 50 mg PO [facility] Last Admin: 05/09/18 21:11 Dose: 50 mg - Labs Labs: 05/10/18 06:23 05/10/18 06:23 Assessment and Plan (1) DM I (diabetes mellitus, type I), uncontrolled Assessment & Plan: Endocrine consult f/u for uncontrolled type 1 DM is 27 y/o known to endocrine with recurrent admission for DKA , admitted for DKA with glucose 900! s/p isulin drip pt with type 1 diabetes complicated with neuropathy /gastroparesis , retinopathy ,/with cataract , (-) nephropathy (-) CAD (-) PVD as per pt. felt sick 2 days ago slept the whole day with out taking insulin the following day his mom wake him up & checked his sugar found it high & brought him to ICU blood glucose log : still with recurrent symtomatic hypoglycemia pt. always tell the nurse that he started feel funny & has been eating all the time > 100 % as per nirse in charge , found to hve his own Humalog & taken away Allergy NKDA Past medical history: croh's disease Past surgical history: denies Psychiatry history: (+) psychiatry disorder Social history : denies smoking , ETOH use , illicit drug use Family history : irrelvant ROS: Constitutional: denies fever, tiredness/weakness. HEENT: denies earache, change in voice .Respiratory: denies cough, sob . CVS :no chest pain, no palpitations . Abdomen: no abdominal pain, no nausea /vomiting, no change bowel movement. 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 Extremities: no edema, no tremors. Skin: no itching, no rash Physical exam Well-developed AAO x3 , ,NAD VSS HEENT: norm cephalic, atraumatic, no lid lag , no exophthalmos ,poor dental hygiene NECK: supple, no palpable lymphadenopathy THYROID: no palpable thyromegaly, not tender CHEST: fair air entry, bilateral, CVS: S1,S2 ABDOMEN: bowel sound present, benign, obese, no wide purple striae , no bruises EXTREMITIES: no edema, clubbing or cyanosis, no palpable hand tremors Skin: no acanthosis nigricans , (+) tattoo lab: 03/2018 a1c 15.7 , TSH 1.39 Assessment recurrent sever hypoglycemia , possible iatrogenic/malingering uncontrolled type 1 diabetes with neuropathy /gastroparesis & retinopathy s/p DKA plan continue lantus 15 units @ 8am & 8pm continue Novoloin R low dose coverage, no 3 am coverage continue Novoloin R 7 units tid with meals if eat > 60% we will follow with you. Status: Chronic (2) Hypoglycemia due to type 1 diabetes mellitus Status: Acute Status: Chronic (2) Hypoglycemia due to type 1 diabetes mellitus Status: Acute
--- NOTE | 2018-05-10 23:54 | CP.PCM.PN ---
Objective - Vital Signs/Intake and Output Vital Signs (last 24 hours): Temp Pulse Resp BP Pulse Ox 97.8 F 115 H 20 124/73 99 05/10/18 16:18 05/10/18 16:18 05/10/18 16:18 05/10/18 16:18 05/10/18 16:18 - Medications Medications: Current Medications Cholestyramine Resin (Questran) 4 gm PO BID [facility] Stop: 05/15/18 18:01 Last Admin: 05/10/18 17:30 Dose: 4 gm Dextrose (Glutose 15) 0 gm PO ONCE PRN; Protocol PRN Reason: Hypoglycemia Protocol Dextrose (Dextrose 50% Inj) 0 ml IV STAT PRN; Protocol PRN Reason: Hypoglycemia Protocol Last Admin: 05/07/18 22:56 Dose: 50 ml Dicyclomine HCl (Bentyl) 10 mg PO QID [facility] Last Admin: 05/10/18 22:15 Dose: 10 mg Glucagon (Glucagen Diagnostic Kit) 0 mg IM STAT PRN; Protocol PRN Reason: Hypoglycemia Protocol Insulin Glargine (Lantus) 15 unit SC BID [facility] Last Admin: 05/10/18 17:31 Dose: Not Given Insulin Human Regular (Novolin R) 0 unit SC ACHS [facility]; Protocol Last Admin: 05/10/18 22:24 Dose: Not Given Insulin Human Regular (Novolin R) 7 unit SC TIDPC [facility] Last Admin: 05/10/18 17:31 Dose: Not Given Lactic Acid (Lac-Hydrin 12% Lotion (225 G)) 0 gm EXT DAILY [facility] Mesalamine (Delzicol Dr) 400 mg PO TID [facility] Last Admin: 05/10/18 17:30 Dose: 400 mg Morphine Sulfate (Morphine) 1 mg IVP Q6 PRN PRN Reason: Pain, Mild (1-3) Last Admin: 05/10/18 22:29 Dose: 1 mg Quetiapine Fumarate (Seroquel) 50 mg PO DAILY [facility] Last Admin: 05/10/18 11:15 Dose: Not Given Trazodone HCl (Desyrel) 50 mg PO HS [facility] Last Admin: 05/10/18 22:15 Dose: 50 mg - Labs Labs: 05/10/18 06:23 05/10/18 06:23
--- NOTE | 2018-05-11 07:14 | PN ---
DATE: 05/10/2018 LOCATION: 396, bed A. SUBJECTIVE: This is a 27 years old male appeared to be more comfortable without reported dizziness, abdominal pain, nausea, vomiting, but much less diarrhea with less abdominal distention. No reported active bleeding. The entire chart is reviewed including but not limited to the most recent lab and radiology study results, current and the previous medication list, current and the previous medical events and today's lab results showed normal CBC, but blood glucose level to 116. PHYSICAL EXAMINATION: GENERAL: A 27 years old male. VITAL SIGNS: Afebrile with pulse of 102, respiratory rate 20-22, blood pressure of 120/66. HEENT: Showed pale dry oral mucous membrane. Nonicteric sclera. LUNGS: Few scattered crepitation. Decreased air entry at bases. HEART: Positive S1 and S2. ABDOMEN: Soft with mild generalized slight tenderness and distention. No mass or organomegaly. EXTREMITIES: Without significant clubbing, cyanosis or edema. NEUROLOGIC: No reported new neurological deficits, sensory or motor. IMPRESSION: 1. Reexacerbation of inflammatory bowel disease. 2. Poorly controlled diabetes mellitus. 3. Intermittent period of hypoglycemia. SUGGESTIONS: 1. Continue current management. 2. Low dose of steroids. 3. The patient will need endoscopic evaluation of the lower GI tract when he is more stable that could be done as outpatient. Valentine Choudhury MD
[2018-05-11] MEDS: LIPASE/PROTEASE/AMYLASE 21,000 U ECC PO SCH (07:48)
[2018-05-11] MEDS: (Novolin R) Insulin Human Regular 100 units/ml vial SC SCH ×5 (07:51→13:01)
[2018-05-11 08:27] VITALS: RESP 20
[2018-05-11] MEDS: Cholestyramine 4 gm/Pkt UD PO SCH (09:35)
[2018-05-11] MEDS: (Lantus) Insulin Glargine, Recombinant SC SCH (09:36)
[2018-05-11] MEDS ORDERED: Ammonium Lactate 12% Lotion (225 g) EXT SCH (10:00)
--- NOTE | 2018-05-11 10:30 | CP.PCM.PN ---
Subjective - Date & Time of Evaluation Date of Evaluation: 05/11/18 Time of Evaluation: 10:26 - Subjective Subjective: Podiatry progress note: Dr. Cuevas 27 year old male was seen and evaluated for bilateral lower extremity evaluation. Patient is AAOx3 and appears in NAD at the time of the visit. Denies of any acute overnight events. Denies of any pain to the LE today. Reports that he is nervous about cutting his nails today. Denies F/N/V/C/SOB/CP/headache. No other pedal complains at this time. Objective - Vital Signs/Intake and Output Vital Signs (last 24 hours): Temp Pulse Resp BP Pulse Ox 98.1 F 100 H 20 100/59 L 96 05/11/18 08:00 05/11/18 08:00 05/11/18 08:00 05/11/18 08:00 05/11/18 08:00 Intake and Output: 05/11/18 05/11/18 06:59 18:59 Intake Total 240 Balance 240 - Medications Medications: Current Medications Cholestyramine Resin (Questran) 4 gm PO BID [facility] Stop: 05/15/18 18:01 Last Admin: 05/11/18 09:35 Dose: 4 gm Dextrose (Glutose 15) 0 gm PO ONCE PRN; Protocol PRN Reason: Hypoglycemia Protocol Dextrose (Dextrose 50% Inj) 0 ml IV STAT PRN; Protocol PRN Reason: Hypoglycemia Protocol Last Admin: 05/07/18 22:56 Dose: 50 ml Dicyclomine HCl (Bentyl) 10 mg PO QID [facility] Last Admin: 05/11/18 09:35 Dose: 10 mg Glucagon (Glucagen Diagnostic Kit) 0 mg IM STAT PRN; Protocol PRN Reason: Hypoglycemia Protocol Insulin Glargine (Lantus) 15 unit SC BID [facility] Last Admin: 05/11/18 09:36 Dose: 15 units Insulin Human Regular (Novolin R) 0 unit SC ACHS [facility]; Protocol Last Admin: 05/11/18 07:51 Dose: 1 units Insulin Human Regular (Novolin R) 7 unit SC TIDPC [facility] Last Admin: 05/11/18 08:41 Dose: 7 units Lactic Acid (Lac-Hydrin 12% Lotion (225 G)) 0 gm EXT DAILY [facility] Last Admin: 05/11/18 10:05 Dose: 1 applic Mesalamine (Delzicol Dr) 400 mg PO TID [facility] Last Admin: 05/11/18 09:36 Dose: 400 mg Morphine Sulfate (Morphine) 1 mg IVP Q6 PRN PRN Reason: Pain, Mild (1-3) Last Admin: 05/11/18 04:50 Dose: 1 mg Quetiapine Fumarate (Seroquel) 50 mg PO DAILY [facility] Last Admin: 05/11/18 09:35 Dose: 50 mg Trazodone HCl (Desyrel) 50 mg PO HS [facility] Last Admin: 05/10/18 22:15 Dose: 50 mg - Labs Labs: 05/10/18 06:23 05/10/18 06:23 - Constitutional Appears: Well, Non-toxic, No Acute Distress - Extremities Exam Additional comments: Bilateral LE exam VASC: DP/PT pulses are palpable 2/4, Cap refill time: < 3 sec to all digits, Temp gradient is warm to cool from proximal to distal, no pitting or non-pitting edema noted DERM: diffuse xerosis, no open lesions, no erythema, no inter-digital maceration, no cuts or breaks in the skin, nails are elongated and dystrophic and discolored x 10 NEURO: protective sensation grossly diminished ORTHO: Normal ROM at the MTPJ and AJ - Neurological Exam Neurological Exam: Alert, Awake, Oriented x3 - Psychiatric Exam Psychiatric exam: Normal Affect, Normal Mood Assessment and Plan - Assessment and Plan (Free Text) Assessment: 27 year old male with PMHx of IDDM type 1, bipolar, schizophrenia, major depression, peripheral blindness both eyes, deaf in left ear, peripheral neuropathy, crohn's disease was evaluated for bilateral LE evaluation Plan: Patient seen and evaluated Discussed plan with attending Dr. Cuevas Labs, vitals and charts reviewed - afebrile, no leukocytosis Educated patient of diet control, and diabetic care Ammonium lactate cream ordered - to be applied to bilateral feet daily Aseptic debridement of the nails using sterile clippers - tolerated the procedure well with no reported incidents Stable from podiatry standpoint
[2018-05-11 11:08] LABS: HEMOGLOBIN 13.7 g/dL (12.0-18.0); MEAN CELL VOLUME 88.7 fL (80.0-94.0); MEAN CORPUSCULAR HGB CONC 33.9 g/dL (33.0-37.0); MEAN PLATELET VOLUME 9.5 fL (7.2-11.7); RBC 4.55 Mil/uL (4.40-5.90); RED CELL DISTRIBUTION WIDTH 14.1 % (11.5-14.5); WHITE BLOOD COUNT 6.6 K/uL (4.8-10.8)
[2018-05-11 11:12] LABS: BLOOD UREA NITROGEN 19 mg/dL (9-20); GFR NON-AFRICAN AMERICAN > 60
[2018-05-11] MEDS ORDERED: Influenza Vaccine 60 MCG/0.5 ML SYR (3 yr & up) IM ONE (15:33)
[2018-05-11 15:49] VITALS: BP 119/73; PULSE 93; TEMP 98.5; O2SAT 97
--- NOTE | 2018-05-11 16:02 | CP.PCM.PN ---
Subjective - Date & Time of Evaluation Date of Evaluation: 05/11/18 Time of Evaluation: 11:40 - Subjective Subjective: [employer] NOTES patient seen today , denies any complaints BS- STABLE , no hypoglycemic events noted D/w with Dr. Loving, stable for discharge home today and f/u with his office in 1 week Objective - Vital Signs/Intake and Output Vital Signs (last 24 hours): Temp Pulse Resp BP Pulse Ox 98.5 F 93 H 20 119/73 97 05/11/18 15:48 05/11/18 15:48 05/11/18 15:48 05/11/18 15:48 05/11/18 15:48 Intake and Output: 05/11/18 05/11/18 06:59 18:59 Intake Total 240 Balance 240 - Medications Medications: Current Medications Cholestyramine Resin (Questran) 4 gm PO BID [facility] [place] Stop: 05/15/18 18:01 Last Admin: 05/11/18 09:35 Dose: 4 gm Dextrose (Glutose 15) 0 gm PO ONCE PRN; Protocol PRN Reason: Hypoglycemia Protocol Dextrose (Dextrose 50% Inj) 0 ml IV STAT PRN; Protocol PRN Reason: Hypoglycemia Protocol Last Admin: 05/07/18 22:56 Dose: 50 ml Dicyclomine HCl (Bentyl) 10 mg PO QID [facility] [place] Last Admin: 05/11/18 09:35 Dose: 10 mg Glucagon (Glucagen Diagnostic Kit) 0 mg IM STAT PRN; Protocol PRN Reason: Hypoglycemia Protocol Insulin Glargine (Lantus) 15 unit SC BID [facility] [place] Last Admin: 05/11/18 09:36 Dose: 15 units Insulin Human Regular (Novolin R) 0 unit SC ACHS [facility] [place]; Protocol Last Admin: 05/11/18 11:28 Dose: 5 units Insulin Human Regular (Novolin R) 7 unit SC TIDPC [facility] [place] Last Admin: 05/11/18 13:01 Dose: 7 units Lactic Acid (Lac-Hydrin 12% Lotion (225 G)) 0 gm EXT DAILY [facility] [place] Last Admin: 05/11/18 10:05 Dose: 1 applic Mesalamine (Delzicol Dr) 400 mg PO TID [facility] [place] Last Admin: 05/11/18 13:48 Dose: 400 mg Morphine Sulfate (Morphine) 1 mg IVP Q6 PRN PRN Reason: Pain, Mild (1-3) Last Admin: 05/11/18 11:19 Dose: 1 mg Quetiapine Fumarate (Seroquel) 50 mg PO DAILY [facility] Last Admin: 05/11/18 09:35 Dose: 50 mg Trazodone HCl (Desyrel) 50 mg PO [facility] Last Admin: 05/10/18 22:15 Dose: 50 mg - Labs Labs: 05/11/18 10:55 05/11/18 10:55
--- NOTE | 2018-05-11 20:53 | CP.PCM.DIS ---
Provider - Provider Date of Admission: 05/05/18 00:49 Attending physician: Roshan Loving MD Hospital Course - Lab Results Lab Results: Micro Results 05/06/18 08:11 Nose MRSA Culture - Final MRSA NOT DETECTED 05/05/18 08:32 Nose MRSA Culture (Admit) - Final MRSA NOT DETECTED Most Recent Lab Values WBC 6.6 K/uL (4.8-10.8) 05/11/18 10:55 RBC 4.55 Mil/uL (4.40-5.90) 05/11/18 10:55 Hgb 13.7 g/dL (12.0-18.0) 05/11/18 10:55 Hct 40.4 % (35.0-51.0) 05/11/18 10:55 MCV 88.7 fL (80.0-94.0) 05/11/18 10:55 MCH 30.0 pg (27.0-31.0) 05/11/18 10:55 MCHC 33.9 g/dL (33.0-37.0) 05/11/18 10:55 RDW 14.1 % (11.5-14.5) 05/11/18 10:55 Plt Count 229 K/uL (130-400) 05/11/18 10:55 MPV 9.5 fL (7.2-11.7) 05/11/18 10:55 Neut % (Auto) 51.9 % (50.0-75.0) 05/06/18 11:35 Lymph % (Auto) 34.0 % (20.0-40.0) 05/06/18 11:35 Jack % (Auto) 10.7 % (0.0-10.0) H 05/06/18 11:35 Eos % (Auto) 2.3 % (0.0-4.0) 05/06/18 11:35 Baso % (Auto) 1.1 % (0.0-2.0) 05/06/18 11:35 Neut # (Auto) 3.1 K/uL (1.8-7.0) 05/06/18 11:35 Lymph # (Auto) 2.0 K/uL (1.0-4.3) 05/06/18 11:35 Jack # (Auto) 0.6 K/uL (0.0-0.8) 05/06/18 11:35 Eos # (Auto) 0.1 K/uL (0.0-0.7) 05/06/18 11:35 Baso # (Auto) 0.1 K/uL (0.0-0.2) 05/06/18 11:35 ESR 10 mm/hr (0-15) 05/06/18 11:35 pO2 52 mm/Hg (30-55) 05/04/18 22:22 VBG pH 7.27 (7.32-7.43) L 05/04/18 22:22 VBG pCO2 34 mmHg (40-60) L 05/04/18 22:22 VBG HCO3 16.4 mmol/L 05/04/18 22:22 VBG Total CO2 16.6 mmol/L (22-28) L 05/04/18 22:22 VBG O2 Sat (Calc) 89.9 % (40-65) H 05/04/18 22:22 VBG Base Excess -10.3 mmol/L (0.0-2.0) L 05/04/18 22:22 VBG Potassium 3.0 mmol/L (3.6-5.2) L 05/04/18 22:22 Sodium 135.0 mmol/l (132-148) 05/04/18 22:22 Chloride 101.0 mmol/L (98-107) 05/04/18 22:22 Glucose 707 mg/dl (75-110) H* 05/04/18 22:22 Lactate 4.5 mmol/L (0.7-2.1) H* 05/04/18 22:22 Crit Value Called To Nini sullivan er 05/04/18 22:22 Crit Value Called By Julienne 05/04/18 22:22 Crit Value Read Back Y 05/04/18 22:22 Blood Gas Notified Time 222505/04/18 22:22 Sodium 137 mmol/L (132-148) 05/11/18 10:55 Potassium 4.4 mmol/L (3.6-5.2) 05/11/18 10:55 Chloride 96 mmol/L (98-107) L 05/11/18 10:55 Carbon Dioxide 27 mmol/L (22-30) 05/11/18 10:55 Anion Gap 19 (10-20) 05/11/18 10:55 BUN 19 mg/dL (9-20) 05/11/18 10:55 Creatinine 0.7 mg/dL (0.8-1.5) L 05/11/18 10:55 Est GFR ( Amer) > 60 05/11/18 10:55 Est GFR (Non-Af Amer) > 60 05/11/18 10:55 POC Glucose (mg/dL) 188 mg/dL (65-110) H 05/11/18 15:59 Random Glucose 312 mg/dL (75-110) H 05/11/18 10:55 Calcium 10.0 mg/dl (8.6-10.4) 05/11/18 10:55 Phosphorus 4.2 mg/dL (2.5-4.5) 05/11/18 10:55 Magnesium 2.1 mg/dL (1.6-2.3) 05/11/18 10:55 Total Bilirubin 0.5 mg/dL (0.2-1.3) 05/05/18 06:26 AST 42 U/L (17-59) 05/05/18 06:26 ALT 59 U/L (21-72) 05/05/18 06:26 Alkaline Phosphatase 85 U/L (38-126) 05/05/18 06:26 Total Protein 7.5 g/dL (6.3-8.3) 05/05/18 06:26 Albumin 4.5 g/dL (3.5-5.0) 05/05/18 06:26 Globulin 3.0 gm/dL (2.2-3.9) 05/05/18 06:26 Albumin/Globulin Ratio 1.5 (1.0-2.1) 05/05/18 06:26 Lipase 128 U/L (23-300) 05/04/18 22:15 Venous Blood Potassium 3.0 mmol/L (3.6-5.2) L 05/04/18 22:22 Urine Color Colorless (YELLOW) 05/05/18 01:49 Urine Clarity Clear (Clear) 05/05/18 01:49 Urine pH 5.0 (5.0-8.0) 05/05/18 01:49 Ur Specific [place] 1.028 (1.003-1.030) 05/05/18 01:49 Urine Protein Negative mg/dL (NEGATIVE) 05/05/18 01:49 Urine Glucose (UA) 3+ mg/dL (Normal) H 05/05/18 01:49 Urine Ketones Negative mg/dL (NEGATIVE) 05/05/18 01:49 Urine Blood Negative (NEGATIVE) 05/05/18 01:49 Urine Nitrate Negative (NEGATIVE) 05/05/18 01:49 Urine Bilirubin Negative (NEGATIVE) 05/05/18 01:49 Urine Urobilinogen Normal mg/dL (0.2-1.0) 05/05/18 01:49 Ur Leukocyte Esterase Neg Shelly/uL (Negative) 05/05/18 01:49 Urine WBC (Auto) < 1 /hpf (0-5) 05/05/18 01:49 B-Hydroxybutyrate 0.21 mM (0.02-0.27) 05/04/18 23:45 Discharge Exam - Head Exam Head Exam: ATRAUMATIC, NORMAL INSPECTION, NORMOCEPHALIC Discharge Plan - Discharge Medications Prescriptions: Frank DUARTE [Delzicol ] 400 mg PO TID #90 cap Insulin Lispro-HIGH [humALOG HIGH] 20 units SC AC #1 ml Ammonium Lactate 12% [Lac-Hydrin 12% Lotion (225 g)] 1 gm EXT DAILY #1 bottle Insulin Glargine, Recombina [Lantus] 20 unit SC HS 30 Days #1 unit Cholestyramine [Questran] 4 gm PO BID #20 packet - Follow Up Plan Condition: GUARDED Disposition: HOME/ ROUTINE Instructions: Diabetes Exchange Diet, Low Blood Sugar, Adult (DC), Diabetic Meal Planning Additional Instructions: f/u with Dr. Loving office in 1 week Please f/u with Dr. Reyes office in 2 weeks- f/u visit for colonoscopy- call and make appointment Please continue medication as per med. rec. Please do accucheck before meals PLEASE [facility] FROM [facility] Referrals: Roshan Loving MD [Staff Provider] -
--- NOTE | 2018-05-12 02:45 | PN ---
DATE: 05/11/2018 SUBJECTIVE: He was found to have some insulin syringes and insulin in a side table. An incident report was made, and I instructed the patient. The patient is nonsuicidal or homicidal. He agrees to comply. PHYSICAL EXAMINATION: VITAL SIGNS: BP 124/73, pulse 115, respiratory rate 20, temperature 97.8. LUNGS: Clear. CARDIOVASCULAR SYSTEM: S1 and S2, regular. ABDOMEN: Soft. ASSESSMENT: 1. Crohn disease. 2. Diabetic ketoacidosis. 3. Dehydration. PLAN: Continue current medication. Monitor the patient. Roshan Loving MD
--- NOTE | 2018-05-12 04:55 | DS ---
HOSPITAL COURSE: The patient is 27-year-old male with history of type 1 diabetes, Crohns disease, chronic with multiple hospitalization, multiple admission and multiple medical problem. He is noncompliant with diet and medications, followup. He came in with diabetic ketoacidosis and later on he was found with ulcerative colitis and the patient was seen by GI. The patient's medications were adjusted. Sugars were controlled. He felt better and he is for discharge. CONDITION UPON DISCHARGE: Stable. LABORATORY DATA: WBC 6.6, hemoglobin 13.7, hematocrit 40.4 and platelets 229. Sodium 137, potassium 4.4, chloride 96, bicarb 27, BUN 19, creatinine 0.7. PLAN: The patient is feeling better. His stool is improved and he is for discharge. He will be followed up as outpatient. Roshan Loving MD
== END 2018-05-11 16:15 | disposition home or self-care (01) | DRG 295 ==
LOC: C.ER 21:03 → C.9I 05-05 00:49 → C.3T 05-05 21:06 → C.9I 05-05 21:54 → C.3T 05-06 08:24
PROVIDERS: ADMIT Internal Medicine; ATTEND Internal Medicine
DX: E11.01 Type 2 diabetes mellitus with hyperosmolarity with coma (principal); E86.0 Dehydration; E46 Unspecified protein-calorie malnutrition; F31.9 Bipolar disorder, unspecified; H54.8 Legal blindness, as defined in USA; H91.92 Unspecified hearing loss, left ear; I10 Essential (primary) hypertension; K50.90 Crohn's disease, unspecified, without complications; K31.84 Gastroparesis; E10.43 Type 1 diabetes mellitus with diabetic autonomic (poly)neuropathy; Z79.4 Long term (current) use of insulin; Z91.11 Patient's noncompliance with dietary regimen; Z68.1 Body mass index [BMI] 19.9 or less, adult